=== PATIENT | female | born 1960 | race Caucasian/White ===

== ENCOUNTER 2020-03-20 06:00 | Outpatient (RCR) | payer MEDICARE, SELFPAY | END 2020-04-08 23:59 | disposition home or self-care (01) | LOC: SPT 06:00 | PROVIDERS: PCP Internal Medicine; Referring Provider Specialist; Visit Provider Specialist | DX: G20 Parkinson's disease (principal) | CPT/HCPCS: 97110; 97112; 97116; 97162 ==

== ENCOUNTER 2020-04-09 06:00 | Outpatient (RCR) | payer MEDICARE, MEDICAID, SELFPAY | END 2020-05-08 23:59 | disposition home or self-care (01) | LOC: SPT 06:00 | PROVIDERS: PCP Internal Medicine; Visit Provider Specialist | DX: G20 Parkinson's disease (principal) | CPT/HCPCS: 97110; 97112 ==

== ENCOUNTER → 2021-03-05 12:36 | Outpatient (BNVA) | payer MEDICARE, MEDICAID, SELFPAY | PROVIDERS: PCP Internal Medicine; Visit Provider Specialist | DX: G20 Parkinson's disease (principal) | CPT/HCPCS: 99214 ==

== ENCOUNTER → 2021-09-03 14:32 | Outpatient (BNVA) | payer MEDICARE, MEDICAID, SELFPAY | PROVIDERS: PCP Internal Medicine; Visit Provider Specialist | DX: G20 Parkinson's disease (principal); E66.01 Morbid (severe) obesity due to excess calories; Z68.42 Body mass index [BMI] 45.0-49.9, adult; Z91.81 History of falling | CPT/HCPCS: 99213 ==

== ENCOUNTER 2022-01-14 08:34 | Emergency (ER) | payer MEDICARE, MEDICAID, SELFPAY ==
--- NOTE | 2022-01-14 08:41 | XR_ITS ---
WS: [id number] RIGHT SHOULDER: 3 VIEW(S) TECHNIQUE: Internal and external rotation with Y view. HISTORY: pain/fall COMPARISON: 04/15/2012 Acute impacted fracture involving the humeral neck and head. There is significant impaction at the hu meral neck with fragmentation. Humeral head is rotated medially and probable posterior. Marked AC joint arthritis. Bones are osteopenic. XR/XR shoulder RT min 2V* [id number] IMPRESSION: Comminuted, impacted humeral neck and head fracture.
[2022-01-14 08:43] VITALS: BMI 43.9
[2022-01-14 09:16] VITALS: RESP 18
[2022-01-14] MEDS: morphine 4 mg/mL SDV 1 mL IVP (09:16)
[2022-01-14] MEDS: ondansetron 2 mg/ML SDV 2 mL 4 MG IVP (09:16)
--- NOTE | 2022-01-14 09:42 | CT_ITS ---
WS: [id number] CT RIGHT SHOULDER, NONCONTRAST. HISTORY: fx prox humerus Technique: All CT scans at [facility] use at least one of these dose optimization techniques: automated exposure control; mA and/or kV adjustment per patient size (includes targeted exams where dose is matched to clinical indication); or iterative reconstruction. DLP: 2565.8 mGy.cm COMPARISON: RIGHT shoulder radiograph 01/14/2022. Acute humeral neck and head fracture. There is impaction of the femoral neck upon the femoral head by at least 2 cm. Humeral head is rotated clockwise. There are multiple small osseous fragments along t he fracture line. Avulsion of the greater tuberosity. There is an additional tiny osteophyte or avuls ion fracture from the anterior glenoid. Moderate narrowing of the glenohumeral joint. Mild AC joint arthritis. No visualized rib fracture. The clavicle is normal. There is only a small am ount of soft tissue edema at the fracture site. Benign granuloma RIGHT upper lobe. CT/CT shoulder RT wo con* [id number] IMPRESSION: 1. Acute impacted comminuted fracture involving the humeral neck and head. Imp action by approximately 2 cm into the humeral head with clockwise rotation of t he humeral head. 2. Small osteophyte versus tiny avulsion fracture from the anterior glenoid.
--- NOTE | 2022-01-14 09:42 | W.ED.FALL ---
HPI - Fall General: Chief Complaint: Fall Stated Complaint: R SHOULDER PAIN/FALL Time Seen by Provider: 01/14/22 08:35 Source: patient Mode of arrival: ambulatory Limitations: no limitations History of Present Illness: 61-year-old female who stumbled and fell at home. She has a history of Parkinson's she has severe pain in her right arm. Patient did not strike her head there is no loss consciousness she denies any other injury. MD complaint: fall Onset (ago): minute(s) Fall from: standing Fall witnessed: no Place fall occurred: home Loss of consciousness: None Prolonged down time: no Symptoms prior to fall: none Context: tripped/slipped Location of injury: head Associated symptoms-after fall: Denies abdominal pain, chest pain, confusion, difficulty walking, headache(s), hematuria, lightheadedness, neck pain, numbness, short of breath, vertigo or weakness Review of Systems Const: Denies: fever(s), chills, body aches, change in appetite, fatigue or malaise ENMT: Denies: throat pain, ear or mastoid pain, nasal discharge or nasal congestion Card: Denies: chest pain or lightheadedness Resp: Denies: dyspnea, productive cough or non-productive cough GI: Denies: abdominal pain : Denies: hematuria Musc: Denies: neck pain Skin/Breast: Denies: rash or pruritus Neuro: Denies: headache(s), difficulty walking, vertigo or confusion PFS ED PFSH: Medical History Diabetes mellitus Diabetic neuropathy History of cataract Hyperlipidemia Hypertension Parkinson's disease Surgical History History of hand surgery Family History Other Cancer Diabetes Social History Smoking and tobacco status: never smoked Alcohol intake: never History of recent travel: No Physical Exam Const: GENERAL APPEARANCE: cooperative and comfortable NUTRITIONAL APPEARANCE: obese ORIENTATION/CONSCIOUSNESS: Yes awake HENMT: COMMON NORMALS: normocephalic, atraumatic and hearing grossly normal bilaterally HEAD & SCALP: normocephalic and atraumatic Resp: COMMON NORMALS: normal respiratory effort, No retractions, No use of accessory muscles and clear to auscultation bilaterally AUSCULTATION: clear to auscultation bilaterally Cardio: COMMON NORMALS: regular rate, regular rhythm and No murmurs present (Cardio) RATE: regular rate RHYTHM: regular rhythm GI: COMMON NORMALS: Soft to palpation and No hepatosplenomegaly present AUSCULTATION: Yes normoactive bowel sounds PALPATION: Yes Soft to palpation, No Tenderness to palpation present (GI), No Guarding due to palpation present (GI) and Yes No hepatosplenomegaly present Extremity: OTHER: Obvious deformity to proximal right humerus. Patient holding in the splinted position against her chest. Neuro vascularly intact. Skin: COMMON NORMALS: no rashes or lesions noted GENERAL SKIN EXAM: no rashes or lesions noted Course Vital Signs: Vital signs: Vital Signs Respiratory Rate 18 01/14/22 09:16 MDM - Fall Medical Decision Making Discussed with Dr. Guzman. Will discharge patient home in a arm sling. CT done for further evaluation he will follow up with that in the office. Patient given pain medication discharged home advised to wear sling at all times until she sees Ortho for further instructions. Medical Records I reviewed the patient's medical records. Lab Data I reviewed the patient's lab results. Radiology Impressions Shoulder X-Ray 01/14/22 08:41 IMPRESSION: Comminuted, impacted humeral neck and head fracture. Shoulder CT 01/14/22 09:42 IMPRESSION: 1. Acute impacted comminuted fracture involving the humeral neck and head. Impaction by approximately 2 cm into the humeral head with clockwise rotation of the humeral head. 2. Small osteophyte versus tiny avulsion fracture from the anterior glenoid. Discharge Plan Discharge Patient Disposition: Home Clinical Impression: Fracture of proximal end of humerus Condition: Stable Prescriptions: New hydrocodone-acetaminophen 5-325 mg tablet 1 tab PO Q6H PRN (Reason: pain) Qty: 20 0RF No Action donepezil 5 mg tablet 5 mg PO DAILY 0RF metformin 1,000 mg tablet 1,000 mg PO BID 0RF gabapentin 800 mg tablet 800 mg PO DAILY 0RF Januvia 50 mg tablet 50 mg PO DAILY 0RF citalopram 20 mg tablet 20 mg PO DAILY 0RF lisinopril 10 mg tablet 10 mg PO DAILY 0RF glipizide 10 mg tablet 10 mg PO DAILY 0RF pantoprazole 40 mg tablet,delayed release (DR/EC) 40 mg PO DAILY PRN0RF cholecalciferol (vitamin D3) 4,000 unit capsule 1,000 unit PO DAILY 0RF aspirin [Adult Low Dose Aspirin] 81 mg tablet,delayed release (DR/EC) 81 mg PO DAILY 0RF gabapentin 600 mg tablet 600 mg PO BID Qty: 60 10RF carbidopa-levodopa [Sinemet] 25-100 mg tablet 1 tab PO .COMPLEX Qty: 150 11RF Rx Instructions: Take 2 tablets at 10AM, 2 tablets at 2PM, and 1 tablet at 6PM Discharge Orders: Discharge ED (Routine); Ordered 01/14/22 Ordered By: Kodak Burgess Referrals: Evie Aguilar MD [Primary Care Provider] - Discharge Diet: Usual diet Discharge Activity: Limit activity as instructed Patient Instructions: Opioid Safety Activity Restrictions/Additional Instructions: No use of the right arm. off track betting manager will make arrangements for follow-up with orthopedics use a sling until seen by them. Coding Level of Care Code ED Truck Sales Representative for Chg Fwd Exam Detailed
--- NOTE | 2022-01-20 10:23 | DCPLANNER ---
Addendum entered by Rakel Crisostomo 02/06/22 08:43: Patient had a follow up appointment scheduled for 01.21.[address] Guzman at ortho - patient did attend appointment. Addendum entered by Rakel Crisostomo 01/21/22 05:45: Patient has a follow up appointment scheduled for Friday, January 21, 2022 at 1:[address] Guzman at ortho. Clinic will call patient with appointment information. Original Note: energy efficiency finance manager had message to schedule a follow up appointment for patient with ortho. energy efficiency finance manager called the ortho clinic, spoke with Shala, gave clinic patients information. energy efficiency finance manager was told that patients information would be printed and reviewed. Clinic will call patient with appointment information.
== END 2022-01-14 10:28 | disposition home or self-care (01) ==
PROVIDERS: Emergency Provider Family Medicine; PCP Internal Medicine
DX: S42.291A Other displaced fracture of upper end of right humerus, initial encounter for closed fracture (principal); W01.0XXA Fall on same level from slipping, tripping and stumbling without subsequent striking against object, initial encounter; Z79.84 Long term (current) use of oral hypoglycemic drugs; Z79.82 Long term (current) use of aspirin; E11.40 Type 2 diabetes mellitus with diabetic neuropathy, unspecified; E78.5 Hyperlipidemia, unspecified; I10 Essential (primary) hypertension; G20 Parkinson's disease
CPT/HCPCS: 73030; 73200; 96374; 96375; 99283; J2270; J2405

== ENCOUNTER → 2022-01-21 00:01 | Outpatient (BNVA) | payer MEDICARE, MEDICAID, SELFPAY | PROVIDERS: PCP Internal Medicine; Visit Provider Orthopaedic Surgery | DX: S42.209A Unspecified fracture of upper end of unspecified humerus, initial encounter for closed fracture (principal); Z01.812 Encounter for preprocedural laboratory examination; Z20.822 Contact with and (suspected) exposure to COVID-19; X58.XXXA Exposure to other specified factors, initial encounter | CPT/HCPCS: 87635 ==

== ENCOUNTER 2022-01-27 17:02 | Observation (INO) | payer MEDICARE, MEDICAID, SELFPAY ==
--- NOTE | 2022-01-22 13:10 | ECG_ITS ---
[facility] Test Date: 2022-01-22 Pat Name: Miguelina Goncalves Department: Room: Gender: Female Director Social Service: : 1960 Requested By: Radha De Anda Order Number: [id number] Dot MD: Ilir Norris M.D. Measurements Intervals [place] Rate: 80 P: 38 MO: 149 QRS: -7 QRSD: 86 T: 47 QT: 387 QTc: 447 Interpretive Statements SINUS RHYTHM LOW QRS VOLTAGE IN PRECORDIAL LEADS [QRS DEFLECTION < 1.0 mV IN CHEST LEADS] POSSIBLE ANTERIOR MYOCARDIAL INFARCTION , OF INDETERMINATE AGE [30 ms Q WAVE IN V3/V4, OR R < 0.2 mV IN V4] Compared to ECG 10/15/2018 11:25:47 No significant changes Electronically Signed On 01-22-2022 18:51:50 CDT by Ilir Norris M.D. [id number]
[2022-01-22 13:49] VITALS: BMI 43.9
[2022-01-22 14:30] LABS: Basophils # 0.1 10^3/uL (0.0-0.1); Basophils % 0.5 %; Eosinophils # 0.1 10^3/uL (0.0-0.8); Eosinophils % 1.3 %; Hematocrit 34.6 % (37.0-47.0); Lymphocytes # 0.9 10^3/uL (0.8-4.8); Lymphocytes % 8.3 %; Mean Corpuscular HGB Conc 31.8 g/dL (30.0-36.0); Mean Corpuscular Hemoglobin 30.1 pg (28.0-34.0); Mean Corpuscular Volume 94.5 fl (81-99); Mean Platelet Volume 9.1 fL (7.4-10.4); Monocytes # 0.6 10^3/uL (0.2-0.9); Monocytes % 5.6 %; Neutrophils # 9.14 10^3/uL (1.8-7.7); Neutrophils % 83.8 %; Nucleated Red Blood Cells % 0 %; Platelet Count 250 10^3/cmm (130-400); Red Blood Count 3.66 10^6/uL (4.1-5.3); White Blood Count 10.9 10^3/uL (4.0-10.0)
--- NOTE | 2022-01-22 14:35 | ANES.PREANE2 ---
Pre-Anesthetic Assessment Height/Weight: Height 1.57 m Weight 108.862 kg Preop Diagnosis: Fracture right proximal humerus Operation Date: 01/27/22 11:20 Proposed Procedures p Total Reverse Shoulder Arthroplasty(Right) - Yonas Guzman MD Familial anesthetic complications: None Social No alcohol and No tobacco Airway Mallampati: Class III Dentition: false Pulmonary None reported CV/HEM Hypertension None reported Hepatic None reported GI Gastroesophageal Reflux Disease Metabolic Diabetes Mellitus, Hyperlipidemia and Morbid Obesity [facility] [place] None reported Neuropsych parkinson's Anesthetic Plan ASA status: 3 Anesthesia: General and Regional (specify below) Risk of > 500 ml blood loss (7ml/kg in children): No Medications/Allergies Home Medications Medication Instructions Recorded Confirmed Last Taken Type aspirin 81 mg tablet,delayed 81 mg PO DAILY 01/31/20 01/22/22 Unknown History release (Adult Low Dose Aspirin) citalopram 20 mg tablet 20 mg PO DAILY 01/31/20 01/22/22 Unknown History donepezil 5 mg tablet 5 mg PO DAILY 01/31/20 01/22/22 Unknown History gabapentin 800 mg tablet 800 mg PO DAILY 01/31/20 01/22/22 Unknown History glipizide 10 mg tablet 10 mg PO DAILY 01/31/20 01/22/22 Unknown History lisinopril 10 mg tablet 10 mg PO DAILY 01/31/20 01/22/22 Unknown History pantoprazole 40 mg tablet,delayed 40 mg PO DAILY PRN 01/31/20 01/22/22 Unknown History release sitagliptin 50 mg tablet (Januvia) 50 mg PO DAILY 01/31/20 01/22/22 Unknown History gabapentin 600 mg tablet 600 mg PO BID #60 tab 11/06/21 01/22/22 Unknown Rx carbidopa 25 mg-levodopa 100 mg 1 tab PO .COMPLEX #150 tab 11/13/21 01/22/22 Unknown Rx tablet (Sinemet) dulaglutide 1.5 mg/0.5 mL 1.5 mg SUBCUT DIRECTED 01/21/22 01/22/22 Unknown History subcutaneous pen injector (Trulicity) hydrocodone 5 mg-acetaminophen 325 1 tab PO Q6H PRN 7 Days #30 tab 01/21/22 01/22/22 Unknown Rx mg tablet cholecalciferol (vitamin D3) 125 225 mcg PO DAILY 01/22/22 01/22/22 Unknown History mcg (5,000 unit) tablet (Vitamin D3) metformin 500 mg tablet,extended 500 mg PO BID 01/22/22 01/22/22 Unknown History release 24 hr Allergies Allergy/AdvReac Type Severity Reaction Status Date / Time ampicillin Allergy Unknown Rash and Verified 01/22/22 13:48 Itching [facility] Anesthesia Medical History Diabetes mellitus Diabetic neuropathy History of cataract Hyperlipidemia Hypertension Parkinson's disease Surgical History History of hand surgery Family History Other Cancer Diabetes Social History Smoking and tobacco status: never smoked Alcohol intake: never History of recent travel: No Data Anesthesia : 01/22/22 14:13 01/22/22 14:13 Short CBC 01/22/22 Range/Units 14:13 WBC 10.9 H (4.0-10.0) 10^3/uL Hgb 11.0 L (11.5-15.3) g/dL Hct 34.6 L (37.0-47.0) % MCV 94.5 (81-99) fl Plt Count 250 (130-400) 10^3/cmm Neut % (Auto) 83.8 % Neut # (Auto) 9.14 H (1.8-7.7) 10^3/uL Cardiac Studies: No Data to Display
[2022-01-22 14:52] LABS: Anion Gap 14.9 (5-19); Blood Urea Nitrogen 28 mg/dL (8-23); Calcium 9.1 mg/dL (8.5-10.5); Carbon Dioxide 29 mmol/L (22-29); Chloride 99 mmol/L (98-107); Glomerular Filtration Rate 63.4 mL/min (90-130); Glucose 196 mg/dL (65-115); Osmolality Calculated 297 mOsm/kg (285-295); Potassium 4.9 mmol/L (3.5-5.1); Sodium 138 mmol/L (136-145)
[2022-01-27] VITALS (16 sets, daily range): BP systolic 121–153; BP diastolic 57–77; PULSE 68–94; RESP 14–22; TEMP 36.2–36.8; O2SAT 90–99; BMI 47.7
[2022-01-27] MEDS: acetaminophen 500 mg Tablet 1000 MG PO ×2 (09:52→21:51)
[2022-01-27] MEDS: oxyCODONE 20 mg ER (12 HR) Tablet PO (09:53)
[2022-01-27] MEDS: CELEcoxib 200 mg Capsule 400 MG PO (09:53)
[2022-01-27 10:23] LABS: Glucose Point of Care 130 mg/dL (70-110)
[2022-01-27] MEDS: HYDROmorphone 1 mg/mL INJ 1 mL 0.5 MG IVP (10:25)
[2022-01-27] MEDS: sodium chloride 0.9% 1,000 ML 30 ML IV (10:30)
--- NOTE | 2022-01-27 10:46 | P.ANESUD_ITS ---
Pre-Anesthetic Update Pre-Anesthetic Assessment: Date of Surgery/Procedure: 01/27/22 Preop Dunia gnosis: Fracture right proximal humerus Proposed Procedure: Operation Date: 01/27/22 11:20 Proposed Procedures p Total Reverse Shoulder Arthroplasty(Right) - Yonas Guzman MD Any changes to Pre-Anesthetic Assessment?: No Last Intake: Intake Last Liquid Date 01/27/22 Last Liquid Time 22:00 Last Solid Date 01/26/22 Last Solid Time 17:00 Vitals: Temperature 97.1 F L 01/27/22 09:37 Temperature Source Temporal Artery S can 01/27/22 09:37 Pulse Rate 68 01/27/22 09:37 Pulse Rhythm 01/27/22 09:37 Pulse Strength 3+ Normal 01/27/22 09:37 Respiratory Rate 18 01/27/22 10:25 Respiratory Effort 01/27/22 10:25 Respiratory Depth Normal 01/27/22 10:25 Respiratory Patter n 01/27/22 10:25 Blood Pressure 153/69 01/27/22 09:37 Blood Pressure Luciana n 97 01/27/22 09:37 Pulse Oximetry 99 01/27/22 10:25 Oxygen Delivery Me thod 01/27/22 09:37 Exam: Pre-Anes Outpt Exam: alert, oriented x 3, clear to auscultation bilaterally and regular rate & rhythm Cardiac Studies: No Data to Display Anesthesia Procedures Nerve Block: Nerve Block 1: Main Anesthesia: general anesthesia Time Out Performed: Yes Consent: requested by attending/covering physician Nerve block location: interscalene (right) Anesthesia monitors applied: pulse oximetry, EKG, BP cuff and oxygen Nerve block position: semi sitting Anesthetic Used: ropivicaine 0.5% Amount of anesthesia used (mL): 30 Ultrasound used to: recognize landmarks and visualize and ID brachial plexus Nerve Stimulator Used?: No Interscalene/Femoral BLK: 2 stimuplex 22 g needle used for position and inplane approach Injection: neg aspiration of heme Patient Tolerated Procedure: well Complications: none
--- NOTE | 2022-01-27 13:28 | W.PM.OPSFHP ---
Same Day Surgery H&P Indication for Procedure/HPI DATE OF PROCEDURE: January 27, 2022 CHIEF COMPLAINT/INDICATIONFOR SURGICAL PROCEDURE: Right proximal humerus fracture here for reverse total shoulder arthroplasty PREOP DIAGNOSIS: Fracture right proximal humerus PLANNED PROCEDURE: Operation Date: 01/27/22 11:20 Proposed Procedures p Total Reverse Shoulder Arthroplasty(Right) - Yonas Guzman MD 61-year-old who fell at home on 01/14/2022 with a severe comminuted fracture of the right proximal humerus. Due to poor bone quality the degree of comminution she is not thought to be a candidate for surgical repair and she is scheduled for a right reverse total shoulder arthroplasty Medications/Allergies* Home Medications Medication Instructions Recorded Confirmed Type aspirin 81 mg tablet,delayed 81 mg PO DAILY 01/31/20 01/27/22 History release (Adult Low Dose Aspirin) citalopram 20 mg tablet 20 mg PO DAILY 01/31/20 01/27/22 History donepezil 5 mg tablet 5 mg PO DAILY 01/31/20 01/27/22 History gabapentin 800 mg tablet 800 mg PO DAILY 01/31/20 01/27/22 History glipizide 10 mg tablet 10 mg PO DAILY 01/31/20 01/27/22 History lisinopril 10 mg tablet 10 mg PO DAILY 01/31/20 01/27/22 History pantoprazole 40 mg tablet,delayed 40 mg PO DAILY PRN 01/31/20 01/27/22 History release sitagliptin 50 mg tablet (Januvia) 50 mg PO DAILY 01/31/20 01/27/22 History dulaglutide 1.5 mg/0.5 mL 1.5 mg SUBCUT DIRECTED 01/21/22 01/27/22 History subcutaneous pen injector (Trulicity) cholecalciferol (vitamin D3) 125 225 mcg PO DAILY 01/22/22 01/27/22 History mcg (5,000 unit) tablet (Vitamin D3) metformin 500 mg tablet,extended 500 mg PO BID 01/22/22 01/27/22 History release 24 hr Allergies/Adverse Reactions Allergy/AdvReac Type Severity Reaction Status Date / Time ampicillin Allergy Unknown Rash and Verified 01/27/22 09:34 Itching Current Medications: Generic Name Dose Route Start Last Admin Trade Name Freq PRN Reason Stop Dose Admin Sodium Chloride 1,000 mls @ 30 mls/hr 01/27/22 09:30 01/27/22 10:30 Sodium Chloride 0.9% IV 01/28/22 09:29 30 mls/hr .Q24H MARIO Administration Pertinent History/Comorbid Conditions* Medical History (Updated 01/22/22 @ 00:00 by ) Diabetes mellitus Diabetic neuropathy History of cataract Hyperlipidemia Hypertension Parkinson's disease Surgical History (Updated 01/15/22 @ 12:23 by Kodak Burgess DO) History of hand surgery Family History (Updated 01/31/20 @ 09:00 by Steph Stack LPN) Diabetes Cancer Social History Smoking and tobacco status: never smoked Alcohol intake: never History of recent travel: No Pertinent Exam Findings alert, clear to auscultation bilaterally, regular rate & rhythm and operative site marked Recommendations Surgery/Procedure today Coding Level of Care Code Acute Citrix Lead for Taurus Mccarthy
[2022-01-27] MEDS: tranexamic acid 1,000 mg/10mL SDV 2000 MG IRRIGATION (14:56)
[2022-01-27] MEDS: tranexamic acid 1,000 mg/10mL SDV 1000 MG IV (14:56)
--- NOTE | 2022-01-27 16:32 | PC.NURSE ---
CALLED AND UPDATED FAMILY ABOUT SURGERY PROGRESS AND THAT SHE WOULD BE HEADED TO RECOVERY SOON.
--- NOTE | 2022-01-27 17:05 | XRR_ITS ---
PROCEDURE INFORMATION: Exam: XR Right Shoulder Exam date and time: 01/27/2022 5:15 PM Age: 61 years old Clinical indication: Condition or disease; Other: Post op reversse total shoulder; Prior surgery; Surgery date: Post-operative (0-2 days); Surgery type: Today; Patient HX: Post op RT reverse total shoulder; Additional info: R reverse total shoulder TECHNIQUE: Imaging protocol: XR Right shoulder. Views: 2 or more views. COMPARISON: CT shoulder RT wo con* [id number] 01/14/2022 10:02 AM FINDINGS: Bones/joints: Right shoulder arthroplasty changes. The hardware appears intact and normal alignment. Small residual bone fragments anterior and inferior to the humeral hardware. Lungs: Right lung calcified granuloma. Soft tissues: Gas in the soft tissues, consistent with surgery. XR/XR shoulder RT min 2V* [id number] IMPRESSION: Right shoulder arthroplasty changes.
--- NOTE | 2022-01-27 17:14 | P.OP_ITS ---
Operative Report Date of procedure: January 27, 2022 Pre-op diagnosis: Preop Diagnosis Comminuted fracture right proximal humerus Post-op diagnosis: same Procedure done: Right reverse total shoulder Implants: 1) Tornier Aequalis Flex Revive 11mm stem 2) Aequalis Flex Revive 11 mm proximal body 3) Flex Shoulder System reversed tray +0mm 4) Flex Shoulder System 36 mm +6 mm reversed insert 5) Aequalis PerFORM Reversed 25 standard baseplate 6) Aequalis perForm Reversed 36 mm standard glenosphere 7) Glenoid screws: central 9.5 x 40 mm, superior 38 mm inferior 26 mm, anterior 40 mm, posterior 18 mm 8) Aeqalis Flex Revive Spacer 11 x 20 Pathology: none sent Surgeon: Yonas Guzman Anesthesia: General and Nerve Block (Interscalene block) Estimated blood loss (mL): 200 Findings: The patient is a comminuted fracture of the proximal humerus with varus displacement of the head and marked proximal migration of the humeral shaft. There is a free within greater tuberosity fragment. The lesser tuberosity was still adhered to the head Condition: stable Disposition: PACU Procedure: An intrascalene blocks provided the holding area. The patient was taken to the operating room and given a general anesthesia. They were given 2 g of Ancef. A Benitez stand was covered and use to support support the arm A timeout was performed. A 10 cm long incision was made over the deltopectoral groove and dissection carried out with a scalpel blade to the deltopectoral interval. The cephalic vein was identified and retracted laterally. Digital dissection was accomplished to free lesions beneath the deltoid and beneath the coracobrachialis musculature. An Hood medium tissue protector was used to retract the pectoralis major and the deltoid. The biceps was released and the proximal bicipital groove. The attachments of the subscapularis to the lesser tuberosity and supraspinatus and infraspinatus to the greater tuberosity were identified those tuberosities mobilized. The greater tuberosity was secured with 4 #2 braided polyester sutures passed around the greater tuberosity at the tenderness insertion and 2 #2 sutures about around the lesser tuberosity at the tendinous insertion. The free humeral head was then removed. Utilizing electrocautery the glenoid was exposed circumferentially. The centering guide was used to place the central guidepin and the glenoid ream down to sclerotic bone. A 25 mm Tornier Aequalis PerFORM REversed glenoid baseplate was then secured in place with a central 9.5 x 40 mm screw, a superior locking 38 mm screw, an inferior locking 26 mm screw, an anterior 14 mm screw and a posterior 18 mm screw. A standard 36 mm Aequalis perFORM Reverse dGlenosphere was then placed. Attention was then focused on the humerus. Sequential reaming of the humeral canal was accomplished up to 11 mm. A trial reduction was accomplished with the 11 Aqualis Flex REvive body however rotational stability could not be obtained. Second trial reduction with the spacer provided greatly improved rotational stability. A trial reduction with the 36+6 mm reversed insert provided adequate stability. He small drill hole was made in the anterior cortex of the humerus and a braided #2 suture loop passed into the canal. the final size 11 Aequalis Awscend Flex Revive humeral stem, spacer,and proximal body was prepared for tuberosity repair. The loop suture to the anterior cortex was passed around the stem and the for braided sutures passed through the greater tuberosity were passed through the eyelet on the medial stem. The stem and body were then press-fit into place. The Flex Shoulder system reverse tray 36 mm +6 mm insert was placed and the shoulder reduced with a stable reduction. Initially 2 of the greater tuberosity sutures were secured across the greater tuberosity to the posterior prosthesis. The other 2 sutures were passed with a free needle through the subscapularis and secured drop further reinforcing the greater tuberosity drawing the lesser tuberosity to the humerus. Finally the suture exiting the anterior hole and the humerus was passed in a [id number] fashion through the tendinous insertions on the greater and lesser tuberosity. The wound was irrigated with a solution of 100 cc of saline with 1 g of tranexam ic acid and 80 mg of gentamicin. The deltopectoral interval was closed with 0 Vicryl. The subcutaneous tissues were closed with 2-0 Stratafix. The skin was closed with a running 4-0 Stratafix. Sterile dressings were applied. The patient was placed in a sling extubated and taken to recovery room in stable condition.
--- NOTE | 2022-01-27 17:15 | SUR.PHASEI ---
1704 PT TO PACU 5 PT WITH ORAL AIRWAY IN PLACE, GOOD RESPIRATORY EFFORT NOTED ,ID BRACELET TO LT WRIST PT ID WITH 2 IDENTIFIERS , IV TO LT WRIST, DRESSING TO RT SHOULDER ISLAND DRESSING TEGADERM SLING IN PLACE, DISTAL HAND PINK WARM WITH STRONG RADIAL PULSE, PT ORAL AIRWAY OUT, PT MOVES FINGER TO COMMAND, MONITOR SR NO ECTOPY. 1717 DR ELENA AT BEDSIDE, AP XRAYS DONE WITH DR'S ASSISTANCE, PT HOB UP TO 30 DEGREES, VSS
--- NOTE | 2022-01-27 17:34 | SUR.PHASEI ---
PT ON RA TRIAL, PT ENCOURAGED TO COUGH AND DEEP BREATH, LUNGS CLEAR, DIMINISHED BASES. PT SATS DOWNT TO 80% , SAT PROBE TO BILAT EARS, PT PLACED ON 3LNC SAT UP TO 90-91% PT VERBALLY DENIES PAIN , NAUSEA, OR SHORTNESS OF BREATH.
--- NOTE | 2022-01-27 17:40 | ANE.PACU2 ---
Inpatient post-anesthesia follow up: Airway intact: Yes Vital signs: Temperature 97.3 F Pulse Rate 87 Respiratory Rate 16 Blood Pressure 145/71 Pulse Oximetry 91 Oxygen Delivery Me thod Nasal Cannula Oxygen Flow Rate 3 Fraction of Inspir ed Oxygen Hydration adequate: Yes Nausea and vomiting: No Pain level: 1 Mental status: Baseline
--- NOTE | 2022-01-27 19:00 | PC.NURSE ---
Ice packs changed by Martín Hernandez RN.
[2022-01-27] MEDS: CELEcoxib 200 mg Capsule PO (21:50)
[2022-01-27] MEDS: carbidopa-levodopa 25-100mg Tablet PO (21:50)
[2022-01-27] MEDS: gabapentin 300 mg Capsule 600 MG PO (21:51)
[2022-01-27] MEDS: insulin lispro 100 unit/1 mL SUBCUT (21:52)
[2022-01-27] MEDS: sodium chloride 0.9% 1,000 ML 100 ML IV (21:53)
[2022-01-28] VITALS (8 sets, daily range): BP systolic 117–146; BP diastolic 66–75; PULSE 85–94; RESP 14–18; TEMP 36.8–37.2; O2SAT 88–94
--- NOTE | 2022-01-28 | PC.NURSE ---
Ice packs changed out.
--- NOTE | 2022-01-28 05:07 | PC.NURSE ---
Pt has been unable to void this shift. She has been up to the [facility] without success. Bladder Scan by myself & Jair Torres RN only reveals [address] Porras has been notified. Orders to give NS 500 ml IV bolus x 1.
[2022-01-28] MEDS: sodium chloride 0.9% 500 ML IV (05:24)
[2022-01-28 05:59] LABS: Hemoglobin 10.1 g/dL (11.5-15.3)
[2022-01-28] MEDS: acetaminophen 500 mg Tablet 1000 MG PO ×3 (06:05→20:53)
--- NOTE | 2022-01-28 08:16 | P.PN_ITS ---
Subjective Subjective: Pain okay with shoulder Vitals/I&O/Wt Last Vital Signs Temp 98.6 F 01/28/22 07:40 Pulse 88 01/28/22 07:40 Resp 18 01/28/22 07:40 BP 146/75 01/28/22 07:40 Pulse Ox 93 01/28/22 07:40 01/27/22 01/28/22 01/28/22 22:59 06:59 14:59 Intake Total 1400 / 1460 360 / 1820 500 / 500 Output Total 200 / 200 Balance 1200 / 1260 360 / 1620 500 / 500 Weight last 48 hrs Weight 261 lb Physical Exam Narrative: Right shoulder dressing clean and dry. Fires deltoid and biceps. Data : 01/28/22 05:22 01/22/22 14:13 A&P Assessment and plan (1) Fracture of humerus, proximal, right, closed: Status: Resolved (2) Status post replacement of right shoulder joint: Occupational TherapyOccupation theray to begin AROM R elbow, wrist, hand; pendulum exercises right shoulder. Status: Acute Attestations Medical Necessity Statement*: Awaiting SNF Coding Level of Care Code Acute Manager Transportation for Chg Fwd Diagnoses Status post replacement of right shoulder joint Z96.611 Fracture of humerus, proximal, right, closed S42.201A
[2022-01-28] MEDS: gabapentin 300 mg Capsule 600 MG PO ×2 (09:04→20:54)
[2022-01-28] MEDS: cholecalciferol (vitamin D3) 5,000 unit Tablet 5000 UNIT PO (09:04)
[2022-01-28] MEDS: citalopram 20 mg Tablet PO (09:04)
[2022-01-28] MEDS: CELEcoxib 200 mg Capsule PO ×2 (09:04→20:53)
[2022-01-28] MEDS: carbidopa-levodopa 25-100mg Tablet PO ×3 (09:04→17:27)
[2022-01-28] MEDS: lisinopril 10 mg Tablet PO (09:04)
[2022-01-28] MEDS: donepezil 5 MG Tablet PO (09:04)
[2022-01-28] MEDS: aspirin 81 mg EC Tablet PO (09:04)
[2022-01-28] MEDS: sodium chloride 0.9% 1,000 ML 100 ML IV ×2 (09:05→21:21)
[2022-01-28] MEDS: oxyCODONE 5 mg IR Tab/Cap 10 MG PO ×3 (09:05→17:27)
[2022-01-28 11:15] LABS: Glucose Point of Care 209 mg/dL (70-110)
[2022-01-28 11:15] LABS: Glucose Point of Care 253 mg/dL (70-110)
[2022-01-28 11:42] LABS: Glucose Point of Care 213 mg/dL (70-110)
[2022-01-28] MEDS: insulin lispro 100 unit/1 mL SUBCUT ×3 (12:21→21:21)
[2022-01-28 17:10] LABS: Glucose Point of Care 289 mg/dL (70-110)
[2022-01-28 21:12] LABS: Glucose Point of Care 190 mg/dL (70-110)
[2022-01-29 00:37] VITALS: BP 115/67; PULSE 82; RESP 15; TEMP 36.9; O2SAT 93
[2022-01-29 04:00] VITALS: BP 110/66; PULSE 78; RESP 16; TEMP 36.9; O2SAT 95
[2022-01-29] MEDS: acetaminophen 500 mg Tablet 1000 MG PO ×3 (06:28→21:56)
[2022-01-29 08:00] VITALS: BP 112/68; PULSE 74; RESP 18; TEMP 36.6; O2SAT 97
--- NOTE | 2022-01-29 08:08 | P.PN_ITS ---
Subjective Subjective: Adequate pain control. Able to transfer to chair with therapy but unable to ambulate due to lower extremity weakness. Tolerating occupational therapy for arm Vitals/I&O/Wt Last Vital Signs Temp 98.4 F 01/29/22 04:00 Pulse 78 01/29/22 04:00 Resp 16 01/29/22 04:00 BP 110/66 01/29/22 04:00 Pulse Ox 95 01/29/22 04:00 01/28/22 01/29/22 01/29/22 22:59 06:59 14:59 Intake Total 1300 / 3820 240 / 4060 Output Total 0 / 0 Balance 1300 / 3820 240 / 4060 Weight last 48 hrs Weight 261 lb Physical Exam Narrative: Right shoulder dressing clean and dry Data : 01/28/22 05:22 01/22/22 14:13 A&P Assessment and plan (1) Status post replacement of right shoulder joint: Awaiting senior care placement. No acute orthopedic needs. Does not appear patient will be a candidate for gait training until can use shoulder for w eightbearing Status: Acute Attestations Medical Necessity Statement*: Awaiting SNF placement Coding Level of Care Code Acute Delivery Driver/Supervisor for Chg Fwd Diagnoses Status post replacement of right shoulder joint Z96.611
[2022-01-29] MEDS: insulin lispro 100 unit/1 mL SUBCUT ×4 (09:31→21:53)
[2022-01-29] MEDS: carbidopa-levodopa 25-100mg Tablet PO ×3 (09:32→17:01)
[2022-01-29] MEDS: gabapentin 400 mg Capsule 800 MG PO (09:32)
[2022-01-29] MEDS: donepezil 5 MG Tablet PO (09:32)
[2022-01-29] MEDS: citalopram 20 mg Tablet PO (09:32)
[2022-01-29] MEDS: CELEcoxib 200 mg Capsule PO ×2 (09:33→20:36)
[2022-01-29] MEDS: cholecalciferol (vitamin D3) 5,000 unit Tablet 5000 UNIT PO (09:33)
[2022-01-29] MEDS: aspirin 81 mg EC Tablet PO (09:33)
[2022-01-29] MEDS: gabapentin 300 mg Capsule 600 MG PO ×2 (09:33→20:36)
[2022-01-29] MEDS: lisinopril 10 mg Tablet PO (09:33)
[2022-01-29] MEDS: sodium chloride 0.9% 1,000 ML 100 ML IV ×2 (09:34→20:35)
[2022-01-29 11:54] VITALS: BP 123/63; PULSE 76; RESP 22; TEMP 36.9; O2SAT 96
[2022-01-29 12:12] LABS: Glucose Point of Care 277 mg/dL (70-110)
[2022-01-29 17:45] VITALS: BP 137/70; PULSE 77; RESP 14; TEMP 36.7; O2SAT 96
[2022-01-29 19:55] VITALS: BP 124/59; PULSE 78; RESP 18; TEMP 37.4; O2SAT 96
[2022-01-29 21:19] LABS: Glucose Point of Care 218 mg/dL (70-110)
[2022-01-29 21:19] LABS: Glucose Point of Care 199 mg/dL (70-110)
[2022-01-29 21:19] LABS: Glucose Point of Care 174 mg/dL (70-110)
[2022-01-30] VITALS (8 sets, daily range): BP systolic 133–149; BP diastolic 54–73; PULSE 61–128; RESP 17–19; TEMP 36.2–37.1; O2SAT 92–98
[2022-01-30] MEDS: acetaminophen 500 mg Tablet 1000 MG PO ×2 (06:03→14:46)
[2022-01-30 06:46] LABS: Glucose Point of Care 138 mg/dL (70-110)
[2022-01-30] MEDS: aspirin 81 mg EC Tablet PO (08:08)
[2022-01-30] MEDS: lisinopril 10 mg Tablet PO (08:09)
[2022-01-30] MEDS: CELEcoxib 200 mg Capsule PO ×2 (08:09→20:25)
[2022-01-30] MEDS: cholecalciferol (vitamin D3) 5,000 unit Tablet 5000 UNIT PO (08:09)
[2022-01-30] MEDS: donepezil 5 MG Tablet PO (08:09)
[2022-01-30] MEDS: citalopram 20 mg Tablet PO (08:09)
[2022-01-30] MEDS: gabapentin 300 mg Capsule 600 MG PO ×2 (08:09→20:25)
--- NOTE | 2022-01-30 10:15 | P.PN_ITS ---
Subjective Subjective: No changes. Pain OK. Awaiting placement Vitals/I&O/Wt Last Vital Signs Temp 98.7 F 01/30/22 07:39 Pulse 64 01/30/22 07:39 Resp 17 01/30/22 07:39 BP 138/64 01/30/22 07:39 Pulse Ox 98 01/30/22 07:39 01/29/22 01/30/22 01/30/22 22:59 06:59 14:59 Intake Total 1200 / 2200 225 / 2425 720 / 720 Output Total 525 / 525 Balance 1200 / 2200 -300 / 1900 720 / 720 Physical Exam Narrative: Dressiong clean and dry/ Const: COMMON NORMALS: no acute distress Urinary Catheter Management: Townsend: Cath Placed During This Visit: yes Reason for Continuing Indwelling Catheter: Acute Urinary Retention or Obstruction Urinary Catheter Date of Insertion: 01/29/22 Urinary Catheter Time of Insertion: 10:35 Data : 01/28/22 05:22 01/22/22 14:13 A&P Assessment and plan (1) Status post replacement of right shoulder joint: No issues awaiting placement. Status: Acute Attestations Medical Necessity Statement*: Awaiting placement Coding Level of Care Code Acute Rehabilitation Physician for Taurus Mccarthy Diagnoses Status post replacement of right shoulder joint Z96.611
[2022-01-30] MEDS: oxyCODONE 5 mg IR Tab/Cap 10 MG PO ×2 (10:56→20:26)
[2022-01-30] MEDS: carbidopa-levodopa 25-100mg Tablet PO ×3 (10:56→17:35)
[2022-01-30 11:28] LABS: Glucose Point of Care 303 mg/dL (70-110)
[2022-01-30] MEDS: insulin lispro 100 unit/1 mL SUBCUT ×3 (13:05→22:14)
--- NOTE | 2022-01-30 15:12 | PC.OT ---
OT TREATMENT ATTEMPTED. PATIENT STATES THAT SHE DOES NOT WISH TO PERFORM OT AT THIS TIME. PATIENT SCHEDULED FOR D/C TO SNF TODAY. PATIENT IS ENCOURAGED TO PERFORM UE EXERCISES INDEPENDENTLY SINCE SHE DID NOT WANT TO DO SO WITH OT AT THIS TIME.
[2022-01-30 17:12] LABS: Glucose Point of Care 232 mg/dL (70-110)
[2022-01-30 21:44] LABS: Glucose Point of Care 252 mg/dL (70-110)
[2022-01-31] VITALS (8 sets, daily range): BP systolic 112–166; BP diastolic 46–78; PULSE 64–79; RESP 15–17; TEMP 36.6–37; O2SAT 90–94
[2022-01-31 06:30] LABS: Glucose Point of Care 127 mg/dL (70-110)
[2022-01-31] MEDS: lisinopril 10 mg Tablet PO (09:58)
[2022-01-31] MEDS: cholecalciferol (vitamin D3) 5,000 unit Tablet 5000 UNIT PO (09:58)
[2022-01-31] MEDS: gabapentin 300 mg Capsule 600 MG PO ×2 (09:58→20:40)
[2022-01-31] MEDS: aspirin 81 mg EC Tablet PO (09:58)
[2022-01-31] MEDS: CELEcoxib 200 mg Capsule PO ×2 (09:58→20:41)
[2022-01-31] MEDS: gabapentin 400 mg Capsule 800 MG PO (09:59)
[2022-01-31] MEDS: donepezil 5 MG Tablet PO (09:59)
[2022-01-31] MEDS: citalopram 20 mg Tablet PO (09:59)
[2022-01-31] MEDS: carbidopa-levodopa 25-100mg Tablet PO ×3 (10:00→17:35)
[2022-01-31 11:47] LABS: Glucose Point of Care 305 mg/dL (70-110)
--- NOTE | 2022-01-31 12:57 | P.PN_ITS ---
Subjective Subjective: No issues awaiting assisted placement Vitals/I&O/Wt Last Vital Signs Temp 98.5 F 02/03/22 14:17 Pulse 68 02/03/22 14:17 Resp 17 02/03/22 14:17 BP 158/74 02/03/22 14:17 Pulse Ox 94 02/03/22 14:17 Physical Exam Narrative: Incision clean Urinary Catheter Management: Townsend: Cath Placed During This Visit: yes Reason for Continuing Indwelling Catheter: Acute Urinary Retention or Obstruction Urinary Catheter Date of Insertion: 01/29/22 Urinary Catheter Time of Insertion: 10:35 Data : 01/28/22 05:22 01/22/22 14:13 A&P Assessment and plan (1) Status post replacement of right shoulder joint: No acute issues awaiting placement Status: Acute Attestations Medical Necessity Statement*: Awaiting SNF placement Coding Level of Care Code Acute Structural Metal Worker for Taurus Mccarthy Diagnoses Status post replacement of right shoulder joint Z96.611
[2022-01-31] MEDS: insulin lispro 100 unit/1 mL SUBCUT ×3 (13:15→22:01)
[2022-01-31] MEDS: acetaminophen 500 mg Tablet 1000 MG PO ×2 (15:05→22:02)
--- NOTE | 2022-01-31 15:41 | PC.NURSE ---
Patient's Sp02 was 89%, advised her to put oxygen back on and patient did. I did not change the L flow. It was set at 3L.
[2022-01-31 17:45] LABS: Glucose Point of Care 291 mg/dL (70-110)
--- NOTE | 2022-01-31 18:30 | PC.NURSE ---
Assumed care of patient late shift, no c/o pain, resting in bed with frequent turns, AAOx4, no new events and no needs at this time. Room clean and clutter free, safe from accidents.
[2022-01-31 21:06] LABS: Glucose Point of Care 259 mg/dL (70-110)
[2022-02-01] VITALS (7 sets, daily range): BP systolic 130–152; BP diastolic 59–74; PULSE 58–74; RESP 17–18; TEMP 36.7–37.1; O2SAT 91–96
[2022-02-01] MEDS: acetaminophen 500 mg Tablet 1000 MG PO ×2 (06:24→22:30)
[2022-02-01 06:27] LABS: Glucose Point of Care 110 mg/dL (70-110)
[2022-02-01] MEDS: donepezil 5 MG Tablet PO (08:12)
[2022-02-01] MEDS: cholecalciferol (vitamin D3) 5,000 unit Tablet 5000 UNIT PO (08:12)
[2022-02-01] MEDS: aspirin 81 mg EC Tablet PO (08:12)
[2022-02-01] MEDS: gabapentin 400 mg Capsule 800 MG PO (08:12)
[2022-02-01] MEDS: citalopram 20 mg Tablet PO (08:12)
[2022-02-01] MEDS: lisinopril 10 mg Tablet PO (08:12)
[2022-02-01] MEDS: CELEcoxib 200 mg Capsule PO ×2 (08:12→20:09)
[2022-02-01] MEDS: carbidopa-levodopa 25-100mg Tablet PO ×3 (09:12→17:53)
[2022-02-01] MEDS: gabapentin 300 mg Capsule 600 MG PO ×2 (09:12→20:09)
--- NOTE | 2022-02-01 10:19 | PM.PN ---
Subjective Subjective: pain controlled, at bedside with Physical therapy Vitals/I&O/Wt Last Vital Signs Temp 98.0 F 02/01/22 07:43 Pulse 58 L 02/01/22 07:43 Resp 18 02/01/22 07:43 BP 130/74 02/01/22 07:43 Pulse Ox 91 02/01/22 07:43 01/31/22 02/01/22 02/01/22 22:59 06:59 14:59 Intake Total 1500 / 1999 Output Total 200 / 200 Balance 1500 / 2000 -200 / 1800 Physical Exam Narrative: dressing clean dry and intact Urinary Catheter Management: Townsend: Cath Placed During This Visit: yes Reason for Continuing Indwelling Catheter: Acute Urinary Retention or Obstruction Urinary Catheter Date of Insertion: 01/29/22 Urinary Catheter Time of Insertion: 10:35 Data : 01/28/22 05:22 01/22/22 14:13 A&P Assessment and plan (1) Status post replacement of right shoulder joint: continue therapy d/c planning when insurance clears Status: Acute Attestations Medical Necessity Statement*: ok to d/c to [place] Coding Level of Care Code Acute Behavioral Health Counselor for Chg Fwd Diagnoses Status post replacement of right shoulder joint Z96.611
[2022-02-01 10:57] LABS: Glucose Point of Care 286 mg/dL (70-110)
[2022-02-01] MEDS: insulin lispro 100 unit/1 mL SUBCUT ×3 (11:56→22:30)
--- NOTE | 2022-02-01 11:58 | PC.CHAP ---
Pastoral Care Encounter/Spiritual Assessment Type of Contact [] Declined manager radiation visit [] Patient/Family/Request visit [] Outpatient visit [] Follow-up visit [] Physician referral [] Code/Alert [X] Routine visit [] Staff referral [] Actively dying [] Patient sleeping [] Family support [] [] Out of room [] Palliative care [] [X] Receiving care in room [] Pre-surgical visit [] Trauma [] Long length of stay [] ICU visit [] Other: Relational/Emotional Strength [] Patient feels connected with others/family/visitors/staff [] Distress [] Loneliness/isolation [] Abandonment Spirituality of Patient [] Person of Ledy [] Attends Episcopalian of their Ledy [] Believes in Prayer [] Reads Bible or Mosque materials [] There are Spiritual issues to be addressed Delivery Person Interventions [] Prayer [] Active listening [] Non-anxious presence [] Spiritual/emotional support [] Crisis/trauma care [] Spiritual counseling [] Bereavement support [] Provided bereavement packet [] Provided Bible/devotional materials [] Provided toy/stuffed animal, coloring book to patient or family member [] Provided Communion [] Anointing/[place] [] Salvation [] Completed spiritual assessment [] Other: Impact on Illness or Injury [] Angry [] Fearful [] Anxious [] Often cries [] Exhaustion [] Unable to work [] Unable to attend sabianist [] Unable to walk/stand [] Unable to read [] Unable to drive [] Unable to eat/drink [] Unable to sleep [] Unable to be with family [] Patient intubated [] Other: Summary Time spent with patient
[2022-02-01 17:05] LABS: Glucose Point of Care 246 mg/dL (70-110)
--- NOTE | 2022-02-01 18:36 | PC.NURSE ---
Patient resting in bed, AAOx4, VSS, OOBTC during shift, shelby remains in place and patent, good UOP. No c/o pain, no new events, no needs at this time. WIll report to oncoming nurse at shift change.
[2022-02-01 21:08] LABS: Glucose Point of Care 218 mg/dL (70-110)
[2022-02-02 04:00] VITALS: BP 128/74; PULSE 64; RESP 17; TEMP 36.8; O2SAT 93
[2022-02-02] MEDS: acetaminophen 500 mg Tablet 1000 MG PO ×3 (06:01→20:46)
[2022-02-02 06:36] LABS: Glucose Point of Care 122 mg/dL (70-110)
[2022-02-02 07:49] VITALS: BP 123/74; PULSE 59; RESP 18; TEMP 36.7; O2SAT 95
--- NOTE | 2022-02-02 08:04 | PM.PN ---
Subjective Subjective: resting comfortably in bed watching TV no complaints Vitals/I&O/Wt Last Vital Signs Temp 98.1 F 02/02/22 07:49 Pulse 59 L 02/02/22 07:49 Resp 18 02/02/22 07:49 BP 123/74 02/02/22 07:49 Pulse Ox 95 02/02/22 07:49 02/01/22 02/02/22 02/02/22 22:59 06:59 14:59 Intake Total 120 / 600 Output Total 700 / 700 800 / 1500 Balance -580 / -100 -800 / -900 Physical Exam Narrative: sitting in bed dressing CDI Urinary Catheter Management: Townsend: Cath Placed During This Visit: yes Reason for Continuing Indwelling Catheter: Acute Urinary Retention or Obstruction Urinary Catheter Date of Insertion: 01/29/22 Urinary Catheter Time of Insertion: 10:35 Data : 01/28/22 05:22 01/22/22 14:13 A&P Assessment and plan (1) Status post replacement of right shoulder joint: awaiting insurance coverage d/c planning Status: Acute Attestations Medical Necessity Statement*: awaiting insurance Coding Level of Care Code Acute Power Press Supervisor for Chg Fwd Diagnoses Status post replacement of right shoulder joint Z96.611
[2022-02-02] MEDS: aspirin 81 mg EC Tablet PO (09:11)
[2022-02-02] MEDS: gabapentin 400 mg Capsule 800 MG PO (09:11)
[2022-02-02] MEDS: citalopram 20 mg Tablet PO (09:11)
[2022-02-02] MEDS: gabapentin 300 mg Capsule 600 MG PO ×2 (09:11→20:47)
[2022-02-02] MEDS: carbidopa-levodopa 25-100mg Tablet PO ×3 (09:11→18:00)
[2022-02-02] MEDS: CELEcoxib 200 mg Capsule PO ×2 (09:11→20:47)
[2022-02-02] MEDS: lisinopril 10 mg Tablet PO (09:11)
[2022-02-02] MEDS: donepezil 5 MG Tablet PO (09:11)
[2022-02-02] MEDS: cholecalciferol (vitamin D3) 5,000 unit Tablet 5000 UNIT PO (09:11)
[2022-02-02 11:11] LABS: Glucose Point of Care 311 mg/dL (70-110)
[2022-02-02 12:00] VITALS: BP 123/71; PULSE 64; RESP 18; TEMP 36.8; O2SAT 92
[2022-02-02] MEDS: insulin lispro 100 unit/1 mL SUBCUT ×3 (13:01→20:50)
[2022-02-02 16:00] VITALS: BP 131/72; PULSE 63; RESP 16; TEMP 36.9; O2SAT 94
[2022-02-02 17:11] LABS: Glucose Point of Care 267 mg/dL (70-110)
[2022-02-02] MEDS: magnesium citrate Btl 296 mL PO (19:51)
[2022-02-02 19:57] VITALS: BP 151/57; PULSE 77; RESP 22; TEMP 36.8; O2SAT 96
[2022-02-02 21:02] LABS: Glucose Point of Care 244 mg/dL (70-110)
[2022-02-03] VITALS: BP 174/61; PULSE 70; RESP 18; O2SAT 96
[2022-02-03 04:00] VITALS: BP 130/60; PULSE 66; RESP 21; TEMP 36.6; O2SAT 92
[2022-02-03] MEDS: acetaminophen 500 mg Tablet 1000 MG PO ×2 (05:30→13:01)
[2022-02-03 07:14] VITALS: BP 110/74; PULSE 85; RESP 17; TEMP 37.1; O2SAT 98
[2022-02-03] MEDS: carbidopa-levodopa 25-100mg Tablet PO ×2 (08:06→13:01)
[2022-02-03] MEDS: cholecalciferol (vitamin D3) 5,000 unit Tablet 5000 UNIT PO (08:06)
[2022-02-03] MEDS: citalopram 20 mg Tablet PO (08:06)
[2022-02-03] MEDS: CELEcoxib 200 mg Capsule PO (08:06)
[2022-02-03] MEDS: gabapentin 400 mg Capsule 800 MG PO (08:06)
[2022-02-03] MEDS: nystatin cream 30 gm 1 APPLIC TOPICAL (08:07)
[2022-02-03] MEDS: donepezil 5 MG Tablet PO (08:07)
[2022-02-03] MEDS: insulin lispro 100 unit/1 mL SUBCUT ×2 (08:07→13:01)
[2022-02-03] MEDS: aspirin 81 mg EC Tablet PO (08:07)
[2022-02-03] MEDS: lisinopril 10 mg Tablet PO (08:07)
[2022-02-03] MEDS: gabapentin 300 mg Capsule 600 MG PO (08:07)
[2022-02-03 09:56] LABS: Glucose Point of Care 180 mg/dL (70-110)
[2022-02-03] MEDS: magnesium citrate Btl 296 mL PO (10:06)
[2022-02-03 11:51] VITALS: BP 158/74; PULSE 68; RESP 17; TEMP 36.9; O2SAT 94
[2022-02-03 11:51] LABS: SARS Covid-2 Antigen Negative (Negative)
--- NOTE | 2022-02-03 12:16 | PM.DCS ---
Discharge Providers Date of Admission: 01/27/22 17:02 Date of Discharge: February 03, 2022 Attending Provider at Admission: Yonas Guzman MD Attending Provider at Discharge: Yonas Guzman MD Primary Care Provider: Evie Aguilar MD Diagnoses at Discharge Discharge Diagnosis (1) Status post replacement of right shoulder joint: Status: Acute (2) Fracture of humerus, proximal, right, closed: Status: Resolved Reason for Visit Reason for Visit: fx proximal humerus 22198/s42.209a Hospital Course Hospital Course The patient tolerated surgery well. They remained hemodynamically stable. They was begun on aspirin and SCDs for DVT prophylaxis. The patient was mobilized with therapy beginning the day after surgery due to difficulties with ambulation particularly with her shoulder surgery she was thought to be a candidate for intermediate transfer. Pain was adequately controlled and they were fully mobile they were discharged to a intermediate unit once accepting facility was found and insurance approval was obtained Physical Exam Narrative: On the day of discharge, the patient's right shoulder incision was clean and free of drainage. She would fire her deltoid in her biceps and had no distal motor deficits. Sensation was intact to light touch. Urinary Catheter Management: Townsend: Cath Placed During This Visit: yes Reason for Continuing Indwelling Catheter: Acute Urinary Retention or Obstruction Urinary Catheter Date of Insertion: 01/29/22 Urinary Catheter Time of Insertion: 10:35 Discharge Data Studies Completed and Pending Completed Studies During Hospitalization Category Date Time Status XR shoulder RT min 2V* [id number] Routine Exams 01/27/22 17:05 Completed Radiology Impressions Shoulder X-Ray 01/27/22 17:05 IMPRESSION: Right shoulder arthroplasty changes. Laboratory Results WBC 10.9 10^3/uL (4.0-10.0) H 01/22/22 14:13 RBC 3.66 10^6/uL (4.1-5.3) L 01/22/22 14:13 Hgb 10.1 g/dL (11.5-15.3) L 01/28/22 05:22 Hct 34.6 % (37.0-47.0) L 01/22/22 14:13 MCV 94.5 fl (81-99) 01/22/22 14:13 MCH 30.1 pg (28.0-34.0) 01/22/22 14:13 MCHC 31.8 g/dL (30.0-36.0) 01/22/22 14:13 RDW 15.0 % (12.1-15.1) 01/22/22 14:13 Plt Count 250 10^3/cmm (130-400) 01/22/22 14:13 MPV 9.1 fL (7.4-10.4) 01/22/22 14:13 Neut % (Auto) 83.8 % 01/22/22 14:13 Lymph % (Auto) 8.3 % 01/22/22 14:13 [place]ette % (Auto) 5.6 % 01/22/22 14:13 Eos % (Auto) 1.3 % 01/22/22 14:13 Baso % (Auto) 0.5 % 01/22/22 14:13 Neut # (Auto) 9.14 10^3/uL (1.8-7.7) H 01/22/22 14:13 Lymph # (Auto) 0.9 10^3/uL (0.8-4.8) 01/22/22 14:13 [place] # (Auto) 0.6 10^3/uL (0.2-0.9) 01/22/22 14:13 Eos # (Auto) 0.1 10^3/uL (0.0-0.8) 01/22/22 14:13 Baso # (Auto) 0.1 10^3/uL (0.0-0.1) 01/22/22 14:13 Nucleated RBC % (auto) 0 % 01/22/22 14:13 Nucleated RBCs # 0.0 /100WBC 01/22/22 14:13 Sodium 138 mmol/L (136-145) 01/22/22 14:13 Potassium 4.9 mmol/L (3.5-5.1) 01/22/22 14:13 Chloride 99 mmol/L (98-107) 01/22/22 14:13 Carbon Dioxide 29 mmol/L (22-29) 01/22/22 14:13 Anion Gap 14.9 (5-19) 01/22/22 14:13 BUN 28 mg/dL (8-23) H 01/22/22 14:13 Creatinine 0.9 mg/dL (0.5-0.9) 01/22/22 14:13 GFR Calculation 63.4 mL/min (90-130) L 01/22/22 14:13 Glucose 196 mg/dL (65-115) H 01/22/22 14:13 POC Glucose 180 mg/dL (70-110) H 02/03/22 05:52 Calculated Osmolality 297 mOsm/kg (285-295) H 01/22/22 14:13 Calcium 9.1 mg/dL (8.5-10.5) 01/22/22 14:13 SARS-CoV-2 Ag (Rapid) Negative (Negative) 02/03/22 01:30 Vitals Last Vital Signs Temp 98.5 F 02/03/22 11:51 Pulse 68 02/03/22 11:51 Resp 17 02/03/22 11:51 BP 158/74 02/03/22 11:51 Pulse Ox 94 02/03/22 11:51 Discharge Plan Discharge Patient Disposition: Xfer SNF Condition: Stable Prescriptions: New oxycodone 5 mg Tablet 10 mg PO Q4H PRN (Reason: Severe Pain) 7 Days Qty: 40 0RF Continued donepezil 5 mg tablet 5 mg PO DAILY 0RF gabapentin 800 mg tablet 800 mg PO DAILY 0RF Januvia 50 mg tablet 50 mg PO DAILY 0RF citalopram 20 mg tablet 20 mg PO DAILY 0RF lisinopril 10 mg tablet 10 mg PO DAILY 0RF glipizide 10 mg tablet 10 mg PO DAILY 0RF pantoprazole 40 mg tablet,delayed release (DR/EC) 40 mg PO DAILY PRN (Reason: Acid Reflux) 0RF aspirin [Adult Low Dose Aspirin] 81 mg tablet,delayed release (DR/EC) 81 mg PO DAILY 0RF Trulicity 1.5 mg/0.5 mL pen injector 1.5 mg SUBCUT DIRECTED 0RF hydrocodone-acetaminophen 5-325 mg tablet 1 tab PO Q6H PRN (Reason: pain) 7 Days Qty: 30 0RF gabapentin 600 mg tablet 600 mg PO BID Qty: 60 10RF carbidopa-levodopa [Sinemet] 25-100 mg tablet 1 tab PO .COMPLEX Qty: 150 11RF Rx Instructions: Take 2 tablets at 10AM, 2 tablets at 2PM, and 1 tablet at 6PM metformin 500 mg Tablet Extended Release 24 Hr 500 mg PO BID 0RF cholecalciferol (vitamin D3) [Vitamin D3] 125 mcg (5,000 unit) Tablet 225 mcg PO DAILY 0RF Discharge Orders: Discharge Order (Routine); Ordered 01/30/22 Ordered By: Yonas Guzman Referrals: [facility] [Outside] Yonas Guzman MD [Physician] - 03/04/22 10:15 am Discharge Diet: Advance as tolerated Discharge Activity: Limit activity as instructed Patient Instructions: Oxycodone/Acetaminophen (By mouth), Fractures - Humerus, Joint Replacement Surgery (DC), Shoulder Arthroplasty (DC) Activity Restrictions/Additional Instructions: Replaced dressing right shoulder as needed for drainage Okay to shower/bathe Occupational therapy for active range of motion right elbow shoulder and wrist, pendulum exercises right shoulder Discharge Attestations Time Spent in Discharge Care*: other Quality Metrics Clinical Quality Measures [ No reported AMI, CVA or VTE this stay] Coding Level of Care Code Acute Chg FW DC note Diagnoses Status post replacement of right shoulder joint Z96.611 Fracture of humerus, proximal, right, closed S42.201A
[2022-02-03 14:17] VITALS: BP 158/74; PULSE 68; RESP 17; TEMP 36.9; O2SAT 94
[2022-02-04 10:00] LABS: Glucose Point of Care 239 mg/dL (70-110)
== END 2022-02-03 14:18 | disposition skilled nursing facility (03) ==
LOC: MEDSURG 01-28 13:15
PROVIDERS: Anesthesiology; Admitting Provider Orthopaedic Surgery; PCP Internal Medicine; Visit Provider Orthopaedic Surgery
PROC: (CPT 23472; principal; 2022-01-27 11:00)
DX: S42.201A Unspecified fracture of upper end of right humerus, initial encounter for closed fracture (principal); X58.XXXA Exposure to other specified factors, initial encounter; I10 Essential (primary) hypertension; E78.5 Hyperlipidemia, unspecified; E11.9 Type 2 diabetes mellitus without complications; E66.01 Morbid (severe) obesity due to excess calories; Z68.42 Body mass index [BMI] 45.0-49.9, adult; G20 Parkinson's disease; K21.9 Gastro-esophageal reflux disease without esophagitis; Z79.82 Long term (current) use of aspirin; Z79.84 Long term (current) use of oral hypoglycemic drugs
CPT/HCPCS: 23472; 36415; 36416; 51702; 51798; 64415; 73030; 76942; 80048; 82962; 85018; 85025; 87426; 93005; 96372; 97110; 97161; 97167; 97530; 97535; C1713; C1776; G0378; J0690; J1100; J1170; J1580; J1815; J2250; J2270; J2370; J2405; J2704; J2710; J2795; J3010; J3490; J7030; J7040

== ENCOUNTER → 2022-03-04 10:20 | Outpatient (BNVA) | payer MEDICARE, MEDICAID, SELFPAY | PROVIDERS: PCP Internal Medicine; Visit Provider Orthopaedic Surgery | DX: Z96.611 Presence of right artificial shoulder joint (principal) | CPT/HCPCS: 73030 ==

== ENCOUNTER → 2022-04-08 10:02 | Outpatient (BNVA) | payer MEDICARE, MEDICAID, SELFPAY | PROVIDERS: PCP Internal Medicine; Visit Provider Nurse Practitioner Family | DX: Z96.611 Presence of right artificial shoulder joint (principal) | CPT/HCPCS: 73030 ==

== ENCOUNTER 2022-06-23 14:54 | Inpatient (IN) | payer MEDICARE, MEDICAID, SELFPAY ==
[2022-06-23 15:01] VITALS: BP 145/75; PULSE 81; RESP 18; TEMP 38.1; O2SAT 91; BMI 47.5
--- NOTE | 2022-06-23 15:17 | XRR_ITS ---
PROCEDURE INFORMATION: Exam: XR Chest Exam date and time: 06/23/2022 3:26 PM Age: 62 years old Clinical indication: Dyspnea TECHNIQUE: Imaging protocol: Radiologic exam of the chest. Views: 1 view. COMPARISON: CR XR shoulder RT min 2V* [id number] 04/08/2022 10:56 AM FINDINGS: Lungs: No consolidation. Pleural spaces: No pleural effusion. No pneumothorax. Heart/Mediastinum: No cardiomegaly. Bones/joints: Partially visualized reverse right total shoulder arthroplasty noted. Visualized osseous structures are intact. XR/XR chest 1V portable [id number] IMPRESSION: No acute findings.
--- NOTE | 2022-06-23 15:18 | ECG_ITS ---
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 Measurements Intervals [place] Rate: 77 P: 47 TN: 139 QRS: 5 QRSD: 91 T: 50 QT: 393 QTc: 447 Interpretive Statements SINUS RHYTHM NONSPECIFIC T-WAVE ABNORMALITY Compared to ECG 01/22/2022 13:36:27 T-wave abnormality now present Myocardial infarct finding no longer present Electronically Signed On 06-23-2022 17:34:52 CDT by Ilir Norris M.D. [id number]
--- NOTE | 2022-06-23 15:19 | W.ED.GENADLT ---
HPI - General Adult General: Chief complaint: ER Hold Stated complaint: FEVER/ WEAKNESS/ VOMITING Time Seen by Provider: 06/23/22 15:17 History of Present Illness: Patient is a 62-year-old female with a history of diabetes, hypertension, hyperlipidemia presents emergency room with fever respiratory distress cough and abdominal pain and diarrhea. Patient tells me that she has been having symptoms for last few days that has progressively worsened. Patient denies any complaints, melena hematochezia. Patient reports lower abdominal pain. Patient denies any sick contacts around her. Onset:3 days ago Duration:3 days Location:home Severity:moderate Associated symptoms: Reports dyspnea and malaise; Deny chest pain, nausea, rash, palpitations or vomiting Review of Systems Const: Reports: fatigue, malaise and other (+generalized weakness); Denies: fever(s) or chills Eyes: Denies: change in vision ENMT: Denies: mouth pain Card: Denies: chest pain or palpitations Resp: Reports: dyspnea and non-productive cough GI: Denies: abdominal pain, nausea, vomiting or diarrhea : Denies: dysuria Musc: Denies: extremity pain Skin/Breast: Denies: rash or new lesions Neuro: Denies: weakness in extremities Psych: Reports: other (Normal mood) Gomez/Lymph: Denies: easy bruising PFSH ED PFSH: Medical History Diabetes mellitus Diabetic neuropathy History of cataract Hyperlipidemia Hypertension Parkinson's disease Surgical History History of hand surgery Family History Other Cancer Diabetes Social History Smoking and tobacco status: never smoked Alcohol intake: never History of recent travel: No Physical Exam Const: COMMON NORMALS: alert HENMT: COMMON NORMALS: atraumatic HEAD & SCALP: atraumatic MOUTH: moist mucous membranes not abnormal Eye: COMMON NORMALS: EOMs intact bilaterally and conjunctivae normal CONJUNCTIVA: Yes conjunctivae normal Neck/C-Spine: COMMON NORMALS: full ROM and supple Resp: COMMON NORMALS: normal respiratory effort OTHER: +coarse breath sounds b/l Cardio: COMMON NORMALS: regular rate RATE: regular rate GI: COMMON NORMALS: Soft to palpation and non-tender PALPATION: Yes Soft to palpation OTHER: No focal TTP. NO guarding rebound, guarding, rigidity. No CVA tenderness to percussion. Neg Bolaños/Neg McBurney's point tenderness, no suprabupic tenderness to palpation. Extremity: COMMON NORMALS: full ROM Neuro: SENSORIUM/ORIENTATION: Yes alert MOTOR EXAM: No Abnormal motor strength present and Other motor observations present (no focal motor deficits) Psych: COMMON NORMALS: speech normal SPEECH: Yes normal speech MOOD & AFFECT: Yes euthymic mood Course Vital Signs: Vital signs: Vital Signs Temperature 98.6 F 06/25/22 11:53 Pulse Rate 67 06/25/22 11:53 Respiratory Rate 18 06/25/22 11:53 Blood Pressure 159/76 06/25/22 11:53 Pulse Oximetry 95 06/25/22 11:53 Oxygen Delivery Me thod 06/25/22 11:53 Oxygen Flow Rate 0 06/24/22 09:24 [facility] - General Adult Medical Decision Making Miguelina Goncalves is a 62 year old female with a past medical history of Parkinson's disease, insulin-dependent type 2 diabetes mellitus diabetic neuropathy, hypertension, morbid obesity, who presents [facility] due to altered mental status, fevers, fatigue, malaise.? Patient is on 4 L of oxygen with O2 sat of 92% coarse breath sounds. White count 12.7 today. COVID-negative. UA consistent with UTI. X-ray chest appears to be clear. CTA chest negative for pulmonary embolism. Given new oxygen requirement, UTI, and new onset of altered mental status, patient was admitted to hospital for further evaluation. Disposition: admissoin Lab Data : 06/25/22 04:58 06/25/22 04:58 Radiology Impressions Chest X-Ray 06/23/22 15:17 IMPRESSION: No acute findings. Abdomen/Pelvis CT 06/23/22 15:47 IMPRESSION: 1. No acute intra-abdominal findings. 2. Retroperitoneal lipomatosis which is likely a contributing factor to the clinical findings. 3. Bilateral small volume pleural effusions. Mild anasarca. COMMENTS: Consistent with the [employer]'s Incidental Findings Committee white paper (J Am Letty Radiol 2018): Any incidental renal lesion less than 1 cm or classified as too small to characterize, or any incidental cystic renal lesion characterized as simple-appearing, is likely benign. No follow-up imaging is recommended for these lesions per consensus recommendations based on imaging criteria. Chest CTA 06/23/22 19:47 IMPRESSION: 1. No pulmonary embolism identified. 2. Bilateral pleural effusions. 3. Dependent atelectasis in both lungs. Cannot exclude pneumonitis. 4. Prominent mediastinal and hilar lymph nodes, nonspecific. 5. Cardiomegaly. Laboratory Results WBC 14.5 10^3/uL (4.0-10.0) H 06/23/22 14:44 RBC 4.05 10^6/uL (4.1-5.3) L 06/23/22 14:44 Hgb 10.3 g/dL (11.5-15.3) L 06/23/22 14:44 Hct 34.2 % (37.0-47.0) L 06/23/22 14:44 MCV 84.4 fl (81-99) 06/23/22 14:44 MCH 25.4 pg (28.0-34.0) L 06/23/22 14:44 MCHC 30.1 g/dL (30.0-36.0) 06/23/22 14:44 RDW 15.6 % (12.1-15.1) H 06/23/22 14:44 Plt Count 193 10^3/cmm (130-400) 06/23/22 14:44 MPV 9.1 fL (7.4-10.4) 06/23/22 14:44 Neut % (Auto) 95.5 % 06/23/22 14:44 Lymph % (Auto) 1.9 % 06/23/22 14:44 Kane % (Auto) 1.7 % 06/23/22 14:44 Eos % (Auto) 0.3 % 06/23/22 14:44 Baso % (Auto) 0.3 % 06/23/22 14:44 Neut # (Auto) 13.83 10^3/uL (1.8-7.7) H 06/23/22 14:44 Lymph # (Auto) 0.3 10^3/uL (0.8-4.8) L 06/23/22 14:44 Kane # (Auto) 0.2 10^3/uL (0.2-0.9) 06/23/22 14:44 Eos # (Auto) 0.1 10^3/uL (0.0-0.8) 06/23/22 14:44 Baso # (Auto) 0.0 10^3/uL (0.0-0.1) 06/23/22 14:44 Nucleated RBC % (auto) 0 % 06/23/22 14:44 Nucleated RBCs # 0.0 /100WBC 06/23/22 14:44 D-Dimer 2.21 ug/mIFEU (0-0.59) H 06/23/22 14:44 Specimen Type Arterial 06/23/22 16:00 Sample Site Radial, right 06/23/22 16:00 ABG pH 7.42 (7.35-7.45) 06/23/22 16:00 ABG pCO2 46.7 mmHg (35-45) H 06/23/22 16:00 ABG pO2 94.6 mmHg (80.0-100.0) 06/23/22 16:00 ABG HCO3 30.4 mmol/L (22-26) H 06/23/22 16:00 ABG O2 Saturation 98.5 06/23/22 16:00 ABG Base Excess 5.2 mmol/L (-2.0-2.0) H 06/23/22 16:00 Martin Test Pos 06/23/22 16:00 A-a O2 Gradient 13.4 mmHg (5-10) H 06/23/22 16:00 Hematocrit 32.8 % (37-47) L 06/23/22 16:00 Hgb O2 Saturation 96.5 % (95-100) 06/23/22 16:00 Carboxyhemoglobin 1.8 %THgb (0.4-20.1) 06/23/22 16:00 Methemoglobin 0.2 % (0.4-1.5) L 06/23/22 16:00 Total Hemoglobin 10.7 g/dL (12-16) L 06/23/22 16:00 Sodium 142.0 mmol/L (131-143) 06/23/22 16:00 Potassium 3.3 mmol/L (3.5-5.0) L 06/23/22 16:00 Glucose 103.0 mg/dL (70-115) 06/23/22 16:00 Ionized Calcium 1.2 mmol/L (1.1-1.4) 06/23/22 16:00 O2 Delivery Device Nc 06/23/22 16:00 O2 Liters/Min 4.0 % 06/23/22 16:00 FiO2 36.0 % 06/23/22 16:00 Hearing Therapist ID Ed 06/23/22 16:00 Sodium 142 mmol/L (136-145) 06/23/22 14:44 Potassium 3.4 mmol/L (3.5-5.1) L 06/23/22 14:44 Chloride 102 mmol/L (98-107) 06/23/22 14:44 Carbon Dioxide 30 mmol/L (22-29) H 06/23/22 14:44 Anion Gap 13.4 (5-19) 06/23/22 14:44 BUN 16 mg/dL (8-23) 06/23/22 14:44 Creatinine 0.7 mg/dL (0.5-0.9) 06/23/22 14:44 GFR Calculation 84.5 mL/min (90-130) L 06/23/22 14:44 Glucose 100 mg/dL (65-115) 06/23/22 14:44 Estimat Average Glucose 120 06/23/22 14:40 Hemoglobin A1c 5.8 % (4.0-6.0) 06/23/22 14:40 Calculated Osmolality 295 mOsm/kg (285-295) 06/23/22 14:44 Calcium 8.3 mg/dL (8.5-10.5) L 06/23/22 14:44 Total Bilirubin 0.5 mg/dL (0.15-1.2) 06/23/22 14:44 AST 9 U/L (0-32) 06/23/22 14:44 ALT < 5 U/L (0-33) 06/23/22 14:44 Alkaline Phosphatase 79 U/L (35-105) 06/23/22 14:44 Troponin T Baseline 19 ng/L (0-10) H 06/23/22 14:44 Troponin T 120 Minute 21.11 ng/L (0-10) H 06/23/22 17:50 Delta Troponin T 2.11 ABS# (0-10) 06/23/22 17:50 C-Reactive Protein 24.9 mg/L (0.0-4.9) H 06/23/22 17:50 NT-Pro-B Natriuret Pep 658 pg/mL (0-125) H 06/23/22 14:44 Total Protein 6.4 g/dL (6.6-8.7) L 06/23/22 14:44 Albumin 3.5 g/dL (3.5-5.2) 06/23/22 14:44 Globulin 2.9 g/dL (1.3-4.6) 06/23/22 14:44 Lipase 25 U/L (13-60) 06/23/22 14:44 Procalcitonin 11.21 ng/mL (0-0.5) H 06/23/22 17:50 Urine Color Yellow (Yellow) 06/23/22 21:20 Urine Appearance Clear (CLEAR) 06/23/22 21:20 Urine pH 8 (5-7) H 06/23/22 21:20 Ur Specific Maysel 1.005 (1.005-1.030) 06/23/22 21:20 Urine Protein Trace (Negative) 06/23/22 21:20 Urine Glucose (UA) Norm (Normal) 06/23/22 21:20 Urine Ketones Negative (Negative) 06/23/22 21:20 Urine Blood Neg (Negative) 06/23/22 21:20 Urine Nitrate Positive (Negative) H 06/23/22 21:20 Urine Bilirubin Neg (Negative) 06/23/22 21:20 Prot Sulfosalicylic Acd Positive (Negative) 06/23/22 21:20 Urine Urobilinogen Norm mg/dL (Negative) 06/23/22 21:20 Ur Leukocyte Esterase Trace (Negative) H 06/23/22 21:20 Urine RBC 5-10 /hpf (0-2) H 06/23/22 21:20 Urine WBC 10-15 /hpf (0-5) H 06/23/22 21:20 Ur Squamous Epith Cells 15-25 /hpf (0-5) H 06/23/22 21:20 Amorphous Sediment Not Reportable 06/23/22 21:20 Urine Bacteria 3+ /hpf (NONE) H 06/23/22 21:20 Coronavirus 229E (PCR) Not detected (NOT DETECT) 06/23/22 15:32 SARS-CoV-2 (PCR) Not detected (NOT DETECT) 06/23/22 15:32 Imaging Data Other Imaging: Radiologist's impression: [employer] [place] [address] CT Scan Report Signed Patient: Miguelina Goncalves Unit #: [id number] : 1960 Age/Sex: 62 / F ADM Date: 06/23/22 Loc: ER Room/Bed: Attending Dr: Ordering Provider/Ordering MD: Sin Milian MD Date of Service: 06/23/22 Procedure(s): CT abdomen pelvis w con* [id number] Accession Number(s): [id number] Report Number: [id number] PROCEDURE INFORMATION: Exam: CT Abdomen And Pelvis With Contrast Exam date and time: 06/23/2022 5:26 PM Age: 62 years old Clinical indication: Bloating and constipation; Additional info: Abd distension TECHNIQUE: Imaging protocol: Computed tomography of the abdomen and pelvis with contrast. Radiation optimization: All CT scans at this facility use at least one of these dose optimization techniques: automated exposure control; mA and/or kV adjustment per patient size (includes targeted exams where dose is matched to clinical indication); or iterative reconstruction. Contrast material: [id number]; Contrast volume: 80 ml; Contrast route: INTRAVENOUS (IV);? COMPARISON: CR XR chest 1V portable [id number] 06/23/2022 3:26 PM RADIATION DOSE METRICS: Total DLP (mGy-cm): 1777.24 FINDINGS: Pleural spaces: Bilateral small volume pleural effusions, right greater than left. Liver: Normal. No mass. Gallbladder and bile ducts: Normal. No calcified stones. No ductal dilation. Pancreas: Normal. No ductal dilation. Spleen: Normal. No splenomegaly. Adrenal glands: Normal. No mass. Kidneys and ureters: A few scattered small cysts noted within both kidneys. No hydronephrosis. Stomach and bowel: Unremarkable. No obstruction. No mucosal thickening. Appendix: No evidence of appendicitis. Intraperitoneal space: Unremarkable. No free air. No significant fluid collection. Retroperitoneal space: Increased symmetric fat deposition within the retroperitoneal space predominantly centered around and inferior to the kidneys. There is no suspicious masslike soft tissue component within the fat. Vasculature: Unremarkable. No abdominal aortic aneurysm. Lymph nodes: Unremarkable. No enlarged lymph nodes. Urinary bladder: Unremarkable as visualized. Reproductive: Unremarkable as visualized. Bones/joints: No acute fracture. Soft tissues: Fat containing periumbilical hernia noted measuring 6.4 x 5.[address]/CT abdomen pelvis w con* [id number] IMPRESSION: 1. No acute intra-abdominal findings. 2. Retroperitoneal lipomatosis which is likely a contributing factor to the clinical findings. 3. Bilateral small volume pleural effusions. Mild anasarca. ? COMMENTS: Consistent with the [place] [employer]'s Incidental Findings Committee white paper (J Am Letty Radiol 2018): Any incidental renal lesion less than 1 cm or classified as too small to characterize, or any incidental cystic renal lesion characterized as simple-appearing, is likely benign. No follow-up imaging is recommended for these lesions per consensus recommendations based on imaging criteria. ? Dictated By: Magdaleno Owens DO Signed By: Magdaleno Owens DO Signed Date/Time: 06/23/22 180 DD/ [address] [address] XRay Report Signed Patient: Miguelina Goncalves Unit #: [id number] : 1960 Age/Sex: 62 / F ADM Date: 06/23/22 Loc: ER Room/Bed: Attending Dr: Ordering Provider/Ordering MD: Sin Milian MD Date of Service: 06/23/22 Procedure(s): XR chest 1V portable [id number] Accession Number(s): [id number] Report Number: [id number] PROCEDURE INFORMATION: Exam: XR Chest Exam date and time: 06/23/2022 3:26 PM Age: 62 years old Clinical indication: Dyspnea TECHNIQUE: Imaging protocol: Radiologic exam of the chest. Views: 1 view. COMPARISON: CR XR shoulder RT min 2V* [id number] 04/08/2022 10:56 AM FINDINGS: Lungs: No consolidation. Pleural spaces: No pleural effusion. No pneumothorax. Heart/Mediastinum: No cardiomegaly. Bones/joints: Partially visualized reverse right total shoulder arthroplasty noted. Visualized osseous structures are intact. XR/XR chest 1V portable [id number] IMPRESSION: No acute findings. ? Dictated By: Magdaleno Owens DO Signed By: Magdaleno Owens DO Signed Date/Time: 06/23/22 1603 DD/ [address] [address] [address] Scan Report Signed Patient: Miguelina Goncalves Unit #: [id number] : 1960 Age/Sex: 62 / F ADM Date: 06/23/22 Loc: ER IP Room/Bed: [place] [address]: Andrei Puente MD Ordering Provider/Ordering MD: Sin Milian MD Date of Service: 06/23/22 Procedure(s): CT angio chest PE protcl [id number] Accession Number(s): [id number] Report Number: [id number] PROCEDURE INFORMATION: Exam: CTA Chest With Contrast Exam date and time: 06/23/2022 8:35 PM Age: 62 years old Clinical indication: Abnormal findings; Abnormal diagnostic tests; Elevated d-dimer; Shortness of breath; Patient HX: SOB with hypoxia on monitor. Elevated d dimer. ; Additional info: Hypoxemia, elevated dimer TECHNIQUE: Imaging protocol: Computed tomographic angiography of the chest with contrast. 3D rendering (Not supervised by radiologist): MIP and/or 3D reconstructed images were created by the technologist. Radiation optimization: All CT scans at this facility use at least one of these dose optimization techniques: automated exposure control; mA and/or kV adjustment per patient size (includes targeted exams where dose is matched to clinical indication); or iterative reconstruction. Contrast material: OMNI 350; Contrast volume: 90 ml; Contrast route: INTRAVENOUS (IV);? COMPARISON: CR XR chest 1V portable [id number] 06/23/2022 3:26 PM RADIATION DOSE METRICS: Total DLP (mGy-cm): 470.8 FINDINGS: Pulmonary arteries: No pulmonary embolism is identified. Aorta: The thoracic aorta is normal caliber. No aneurysm or dissection is seen. Lungs: Dependent atelectasis is seen in both lungs. Cannot exclude pneumonitis. There is evidence of previous granulomatous reaction. Pleural spaces: There are bilateral pleural effusions, moderate on the right, small on the left. Heart: Cardiomegaly. Coronary arterial calcifications are noted. No significant pericardial effusion. Lymph nodes:? Prominent mediastinal and hilar lymph nodes, nonspecific. Bones/joints: No acute fracture identified. Soft tissues: Unremarkable. CT/CT angio chest PE protcl [id number] IMPRESSION: 1. No pulmonary embolism identified. 2. Bilateral pleural effusions. 3. Dependent atelectasis in both lungs. Cannot exclude pneumonitis. 4. Prominent mediastinal and hilar lymph nodes, nonspecific. 5. Cardiomegaly. ? Dictated By: Deborah Yang MD Signed By: Deborah Yang MD Signed Date/Time: 06/23/222148 DD/ 34 Discharge Plan Discharge Patient Disposition: Admitted As Inpatient Admit Provider: Andrei Puente Clinical Impression: Fever, Hypoxemia, Cough Condition: Stable Discharge Diet: Cardiac and Diabetic Discharge Activity: Increase activity as tolerated Coding Level of Care Code ED Hydraulic Tester for Chg Fwd Exam Comprehensive
[2022-06-23 15:30] LABS: Basophils % 0.3 %; Eosinophils # 0.1 10^3/uL (0.0-0.8); Eosinophils % 0.3 %; Hematocrit 34.2 % (37.0-47.0); Hemoglobin 10.3 g/dL (11.5-15.3); Lymphocytes # 0.3 10^3/uL (0.8-4.8); Lymphocytes % 1.9 %; Mean Corpuscular HGB Conc 30.1 g/dL (30.0-36.0); Mean Corpuscular Hemoglobin 25.4 pg (28.0-34.0); Mean Corpuscular Volume 84.4 fl (81-99); Mean Platelet Volume 9.1 fL (7.4-10.4); Monocytes # 0.2 10^3/uL (0.2-0.9); Monocytes % 1.7 %; Neutrophils # 13.83 10^3/uL (1.8-7.7); Neutrophils % 95.5 %; Nucleated Red Blood Cells % 0 %; Platelet Count 193 10^3/cmm (130-400); Red Blood Count 4.05 10^6/uL (4.1-5.3); Red Cell Distribution Width 15.6 % (12.1-15.1); White Blood Count 14.5 10^3/uL (4.0-10.0)
[2022-06-23 15:47] LABS: Troponin(5th) Baseline 19 ng/L (0-10)
--- NOTE | 2022-06-23 15:47 | CTR_ITS ---
PROCEDURE INFORMATION: Exam: CT Abdomen And Pelvis With Contrast Exam date and time: 06/23/2022 5:26 PM Age: 62 years old Clinical indication: Bloating and constipation; Additional info: Abd distension TECHNIQUE: Imaging protocol: Computed tomography of the abdomen and pelvis with contrast. Radiation optimization: All CT scans at this facility use at least one of these dose optimization techniques: automated exposure control; mA and/or kV adjustment per patient size (includes targeted exams where dose is matched to clinical indication); or iterative reconstruction. Contrast material: [id number]; Contrast volume: 80 ml; Contrast route: INTRAVENOUS (IV); COMPARISON: CR XR chest 1V portable [id number] 06/23/2022 3:26 PM RADIATION DOSE METRICS: Total DLP (mGy-cm): 1777.24 FINDINGS: Pleural spaces: Bilateral small volume pleural effusions, right greater than left. Liver: Normal. No mass. Gallbladder and bile ducts: Normal. No calcified stones. No ductal dilation. Pancreas: Normal. No ductal dilation. Spleen: Normal. No splenomegaly. Adrenal glands: Normal. No mass. Kidneys and ureters: A few scattered small cysts noted within both kidneys. No hydronephrosis. Stomach and bowel: Unremarkable. No obstruction. No mucosal thickening. Appendix: No evidence of appendicitis. Intraperitoneal space: Unremarkable. No free air. No significant fluid collection. Retroperitoneal space: Increased symmetric fat deposition within the retroperitoneal space predominantly centered around and inferior to the kidneys. There is no suspicious masslike soft tissue component within the fat. Vasculature: Unremarkable. No abdominal aortic aneurysm. Lymph nodes: Unremarkable. No enlarged lymph nodes. Urinary bladder: Unremarkable as visualized. Reproductive: Unremarkable as visualized. Bones/joints: No acute fracture. Soft tissues: Fat containing periumbilical hernia noted measuring 6.4 x 5.[address]/CT abdomen pelvis w con* [id number] IMPRESSION: 1. No acute intra-abdominal findings. 2. Retroperitoneal lipomatosis which is likely a contributing factor to the clinical findings. 3. Bilateral small volume pleural effusions. Mild anasarca. COMMENTS: Consistent with the [place] [employer]'s Incidental Findings Committee white paper (J Am Letty Radiol 2018): Any incidental renal lesion less than 1 cm or classified as too small to characterize, or any incidental cystic renal lesion characterized as simple-appearing, is likely benign. No follow-up imaging is recommended for these lesions per consensus recommendations based on imaging criteria.
[2022-06-23 15:50] LABS: Alanine Aminotransferase < 5 U/L (0-33); Albumin Level 3.5 g/dL (3.5-5.2); Alkaline Phosphatase 79 U/L (35-105); Anion Gap 13.4 (5-19); Aspartate Amino Transferase 9 U/L (0-32); Blood Urea Nitrogen 16 mg/dL (8-23); Calcium 8.3 mg/dL (8.5-10.5); Carbon Dioxide 30 mmol/L (22-29); Chloride 102 mmol/L (98-107); Creatinine Clr Calc Pharmacy 100.2964; Globulin 2.9 g/dL (1.3-4.6); Glomerular Filtration Rate 84.5 mL/min (90-130); Glucose 100 mg/dL (65-115); Lipase 25 U/L (13-60); NT Pro B Type Natriuretic Pept 658 pg/mL (0-125); Osmolality Calculated 295 mOsm/kg (285-295); Potassium 3.4 mmol/L (3.5-5.1); Sodium 142 mmol/L (136-145); Total Bilirubin 0.5 mg/dL (0.15-1.2); Total Protein 6.4 g/dL (6.6-8.7)
[2022-06-23 16:09] LABS: ABG PCO2 46.7 mmHg (35-45); ABG PH Result 7.42 (7.35-7.45); Alveolar-Arterial Oxygen Gradi 13.4 mmHg (5-10); Arterial Blood Gas Hematocrit 32.8 % (37-47); Base Excess ABG 5.2 mmol/L (-2.0-2.0); Blood Gas Allen Test Pos; Blood Gas Operator Identificat ED; Blood Gas Sample Site Radial, right; Blood Gas Sample Type Arterial; Carboxyhemoglobin 1.8 %THgb (0.4-20.1); HCO3 ABG 30.4 mmol/L (22-26); HGB O2 Sat 96.5 % (95-100); Ionized Calcium Level - ABG 1.2 mmol/L (1.1-1.4); Methemoglobin 0.2 % (0.4-1.5); Oxygen Device NC; Oxygen Saturation ABG 98.5; PO2 ABG 94.6 mmHg (80.0-100.0); Potassium Level - ABG 3.3 mmol/L (3.5-5.0); Total Hemoglobin 10.7 g/dL (12-16)
[2022-06-23] MEDS: acetaminophen 500 mg Tablet 1000 MG PO (17:07)
--- NOTE | 2022-06-23 17:17 | PC.PHAR ---
pt is from [facility]-per casandra nurse at [facility] states the pt had all am meds
[2022-06-23 17:25] LABS: Adenovirus Not Detected (NOT DETECT); Chlamydia Pneumoniae Not Detected (NOT DETECT); Coronavirus 229E,HKU1,NL63,OC4 Not Detected (NOT DETECT); Human Metapneumovirus Not Detected (NOT DETECT); Human Rhinovirus/Enterovirus Not Detected (NOT DETECT); Influenza A Not Detected (NOT DETECT); Influenza A H1 Not Detected (NOT DETECT); Influenza A H1-2009 Not Detected (NOT DETECT); Influenza A H3 Not Detected (NOT DETECT); Influenza B Not Detected (NOT DETECT); Mycoplasma Pneumoniae Not Detected (NOT DETECT); Parainfluenza Virus Type 1 Not Detected (NOT DETECT); Parainfluenza Virus Type 2 Not Detected (NOT DETECT); Parainfluenza Virus Type 3 Not Detected (NOT DETECT); Parainfluenza Virus Type 4 Not Detected (NOT DETECT); Respiratory Syncytial Virus A Not Detected (NOT DETECT); Respiratory Syncytial Virus B Not Detected (NOT DETECT); SARS-COV-2 Not Detected (NOT DETECT)
[2022-06-23] MEDS: iohexol 350 mg/mL 100 mL Btl IV ×2 (17:29→20:38)
[2022-06-23 18:21] LABS: Troponin 5 2HR 21.11 ng/L (0-10)
[2022-06-23 18:24] LABS: Troponin 5 2HR Delta 2.11 ABS# (0-10)
--- NOTE | 2022-06-23 18:24 | ECG_ITS ---
[facility] Test Date: 2022-06-23 Pat Name: Miguelina Goncalves Department: Room: Gender: Female President And Chief Executive Officer: : 1960 Requested By: Sin Milian Order Number: [id number] Reading MD: Ilir Norris M.D. Measurements Intervals [place] Rate: 81 P: 54 GA: 145 QRS: 2 QRSD: 90 T: 49 QT: 394 QTc: 460 Interpretive Statements SINUS RHYTHM Compared to ECG 06/23/2022 15:27:23 T-wave abnormality no longer present Electronically Signed On 06-23-2022 18:52:31 CDT by Ilir Norris M.D. [email or web address]
--- NOTE | 2022-06-23 19:02 | PC.NURSE ---
REPORT GIVEN TO DENIS GARCIA ASSUMED CARE.
[2022-06-23 19:03] VITALS: BP 139/70; PULSE 79; RESP 16; O2SAT 97
[2022-06-23 19:44] LABS: D Dimer 2.21 ug/mIFEU (0-0.59)
[2022-06-23] MEDS: cefepime 1,000 MG in sodium chloride 0.9% (plus) 50 ML 100 MG IV (19:47)
--- NOTE | 2022-06-23 19:47 | CTR_ITS ---
PROCEDURE INFORMATION: Exam: CTA Chest With Contrast Exam date and time: 06/23/2022 8:35 PM Age: 62 years old Clinical indication: Abnormal findings; Abnormal diagnostic tests; Elevated d-dimer; Shortness of breath; Patient HX: SOB with hypoxia on monitor. Elevated d dimer. ; Additional info: Hypoxemia, elevated dimer TECHNIQUE: Imaging protocol: Computed tomographic angiography of the chest with contrast. 3D rendering (Not supervised by radiologist): MIP and/or 3D reconstructed images were created by the technologist. Radiation optimization: All CT scans at this facility use at least one of these dose optimization techniques: automated exposure control; mA and/or kV adjustment per patient size (includes targeted exams where dose is matched to clinical indication); or iterative reconstruction. Contrast material: OMNI 350; Contrast volume: 90 ml; Contrast route: INTRAVENOUS (IV); COMPARISON: CR XR chest 1V portable [id number] 06/23/2022 3:26 PM RADIATION DOSE METRICS: Total DLP (mGy-cm): 470.8 FINDINGS: Pulmonary arteries: No pulmonary embolism is identified. Aorta: The thoracic aorta is normal caliber. No aneurysm or dissection is seen. Lungs: Dependent atelectasis is seen in both lungs. Cannot exclude pneumonitis. There is evidence of previous granulomatous reaction. Pleural spaces: There are bilateral pleural effusions, moderate on the right, small on the left. Heart: Cardiomegaly. Coronary arterial calcifications are noted. No significant pericardial effusion. Lymph nodes: Prominent mediastinal and hilar lymph nodes, nonspecific. Bones/joints: No acute fracture identified. Soft tissues: Unremarkable. CT/CT angio chest PE protcl [id number] IMPRESSION: 1. No pulmonary embolism identified. 2. Bilateral pleural effusions. 3. Dependent atelectasis in both lungs. Cannot exclude pneumonitis. 4. Prominent mediastinal and hilar lymph nodes, nonspecific. 5. Cardiomegaly.
[2022-06-23 19:56] LABS: C Reactive Protein 24.9 mg/L (0.0-4.9)
[2022-06-23 20:01] LABS: Procalcitonin 11.21 ng/mL (0-0.5)
--- NOTE | 2022-06-23 21:25 | PC.NURSE ---
pt cleaned from urinary incontinence. shelby placed per DR jose maria palacio
--- NOTE | 2022-06-23 21:28 | P.HP_ITS ---
Providers/Chief Complaint Primary Care Provider: Evie Aguilar MD Chief Complaint: FEVER/ WEAKNESS/ VOMITING History of Present Illness Miguelina Goncalves is a 62 year old female with a past medical history of Parkinson's disease, insulin-dependent type 2 diabetes mellitus diabetic neuropathy, hypertension, morbid obesity, who presents [facility] due to altered mental status, fevers, fatigue, malaise. Currently patient is alert to person, not to place, not to time, she does arouse, but falls asleep, when asked her why she is here in the hospital she tells me that she vomited, but then falls back asleep, right now she is running a high fever it seems like. She does follow commands suggest wheezing my fingers, she can open up her eyes, but falls back asleep. No history of sleep apnea, no significant hypercarbia seen on her blood work. She does have a UTI. She is on 4 L does not use [facility]. I spoke to the staff at the [facility], she was doing well this morning, normally she ambulates with some assistance, but can get to and from the bathroom without an issue, she uses a scooter, she was doing relatively fine for the for the last week and then this morning. This afternoon when nursing staff checkup on her she was acting confused, she had an episode of vomiting, nausea. And they checked her O2 sats and they were in the low 70s, they COVID tested her and she was negative. Review of Systems General: Reports: ROS unobtainable due to mental status Medications/Allergies Home Medications Medication Instructions Recorded Confirmed Last Taken Type aspirin 81 mg tablet,delayed 81 mg PO DAILY@08 01/31/20 06/23/22 06/23/22 History release (Adult Low Dose Aspirin) gabapentin 800 mg tablet 800 mg PO DAILY@13 01/31/20 06/23/22 06/23/22 13:43 History gabapentin 600 mg tablet 600 mg PO BID #60 tabs 11/06/21 06/23/22 06/23/22 07:47 Rx carbidopa 25 mg-levodopa 100 mg 1 tab PO .COMPLEX #150 tabs 11/13/21 06/23/22 06/23/22 Rx tablet (Sinemet) dulaglutide 1.5 mg/0.5 mL 1.5 mg SUBCUT DIRECTED 01/21/22 06/23/22 06/20/22 History subcutaneous pen injector (Trulicity) hydrocodone 5 mg-acetaminophen 325 1 tab PO Q6H PRN pain 7 days #30 01/21/22 06/23/22 06/18/22 Rx mg tablet tabs cholecalciferol (vitamin D3) 125 125 mcg PO DAILY@08 01/22/22 06/23/22 06/23/22 History mcg (5,000 unit) tablet (Vitamin D3) ammonium lactate 12 % topical cream 1 applic topical DAILY #385 grams 06/17/22 06/23/22 06/23/22 Rx bisacodyl 5 mg tablet,delayed 10 mg PO DAILY PRN Constipation 06/17/22 06/23/22 Unknown History release (Dulcolax (bisacodyl)) insulin degludec 100 unit/mL 18 unit SUBCUT BEDTIME@20 06/17/22 06/23/22 06/22/22 History subcutaneous solution (Tresiba U-100 Insulin) magnesium hydroxide 400 mg/5 mL 30 ml PO DAILY PRN Constipation 06/17/22 06/23/22 Unknown History oral suspension (Milk of Magnesia) miconazole nitrate 2 % topical 1 applic topical BID 6 weeks #42.5 06/17/22 06/23/22 Unknown Rx cream grams pantoprazole 40 mg tablet,delayed 40 mg PO DAILY PRN gerd 06/17/22 06/23/22 Unknown History release sodium phosphates 19 gram-7 118 ml LA DAILY PRN Constipation 06/17/22 06/23/22 Unknown History gram/118 mL enema (Fleet Enema) terbinafine HCl 250 mg tablet 250 mg PO DAILY@06/17/22 06/23/22 06/23/22 History acetaminophen 325 mg tablet 650 mg PO Q6H PRN Pain 06/23/22 06/23/22 Unknown History (Tylenol) bisacodyl 10 mg rectal suppository 10 mg LA DAILY PRN Constipation 06/23/22 06/23/22 Unknown History (Dulcolax (bisacodyl)) citalopram 20 mg tablet (Celexa) 20 mg PO DAILY@08 06/23/22 06/23/22 06/23/22 History insulin lispro 100 unit/mL See Rx Instructions .Route .COMPLEX 06/23/22 06/23/22 06/23/22 History subcutaneous solution (Humalog U-100 Insulin) ketoconazole 2 % shampoo 1 applic topical .ON MON AND THURS 06/23/22 06/23/22 06/23/22 History Allergies Allergy/AdvReac Type Severity Reaction Status Date / Time ampicillin Allergy Unknown Rash and Verified 06/23/22 16:57 Itching PFSH Acute PFSH: Medical History Diabetes mellitus Diabetic neuropathy History of cataract Hyperlipidemia Hypertension Parkinson's disease Surgical History History of hand surgery Family History Other Cancer Diabetes Social History Smoking and tobacco status: never smoked Alcohol intake: never History of recent travel: No Vitals/I&O/Wt Last Vital Signs Temp 100.6 F H 06/23/22 15:01 Pulse 81 06/23/22 15:01 Resp 18 06/23/22 15:01 BP 145/75 06/23/22 15:01 Pulse Ox 91 06/23/22 15:01 O2 Del Method 06/23/22 15:01 O2 Flow Rate 4 06/23/22 15:01 06/23/22 06/23/22 06/23/22 06:59 14:59 22:59 Intake Total 50 / 50 Balance 50 / 50 Weight last 48 hrs Weight 117.934 kg Physical Exam Const: COMMON NORMALS: no acute distress and patient oriented x3 EXAM LIMITATIONS: altered mental status ORIENTATION/CONSCIOUSNESS: Yes awake and Yes oriented to person; not oriented to place and not oriented to time HENMT: COMMON NORMALS: normocephalic HEAD & SCALP: normocephalic Eye: COMMON NORMALS: Equal, round and reactive pupils present Neck/C-Spine: COMMON NORMALS: no JVD Resp: COMMON NORMALS: normal respiratory effort, No retractions, No use of accessory muscles and clear to auscultation bilaterally AUSCULTATION: clear to auscultation bilaterally Cardio: COMMON NORMALS: no JVD, regular rate, regular rhythm, S1 normal heart sound present and S2 normal heart sound present RATE: regular rate RHYTHM: regular rhythm HEART SOUNDS: S1 normal heart sound present and S2 normal heart sound present GI: COMMON NORMALS: Normal to inspection, nondistended, normoactive bowel sounds present, Soft to palpation, non-tender, No hepatosplenomegaly present, no masses and no bruits PALPATION: Yes Soft to palpation and Yes No hepatosplenomegaly present OTHER: Large pannus, erythema between her skin folds Extremity: COMMON NORMALS: capillary refill normal, no clubbing, cyanosis or edema, no calf tenderness and no pedal edema Neuro: OTHER: Unable to follow neurologic testing Urinary Catheter Management: Townsend: Cath Placed During This Visit: yes Urinary Catheter Date of Insertion: 06/23/22 Urinary Catheter Time of Insertion: 21:26 Data : 06/23/22 14:44 06/23/22 14:44 A&P Assessment and plan (1) Acute encephalopathy: Status: Acute (2) UTI (urinary tract infection): Status: Acute (3) Hypoxemia: Status: Acute Plan Acute encephalopathy -Likely related to underlying UTI -CT scan negative for obstructive uropathy, nephrolithiasis, pyelonephritis -Continue primaxin -Neurochecks, aspiration precautions -Blood cultures, urine cultures -Full code -Lovenox for DVT prophylaxis Hypoxemia? -Does not use oxygen at the [facility], no history of COPD, no documented history of obesity hypoventilation syndrome -D-dimer is elevated, CT angiogram has been ordered -Currently on 4 L, titrate down as needed -Potentially could have CHAPO, sleep apnea, will place on CPAP during the night -Does have evidence of slight fluid overload, nonpitting edema, bilateral fluid overload, bilateral pleural effusions we will give 1 dose of Lasix Type 2 diabetes mellitus, A1c, low-dose sliding scale Parkinson's disease, continue home medications Attestations Medical Necessity Statement*: Patient requires hospitalization, inpatient, greater than 2 midnights, for acute encephalopathy, UTI, hypoxemia Coding Level of Care Code Acute Ceramic Coater Machine for [facility] Fwd Exam Comprehensive Diagnoses Acute encephalopathy G93.40 UTI (urinary tract infection) N39.0 Hypoxemia R09.02
[2022-06-23 21:33] LABS: Add Urine Culture? No; Bacteria Urine 3+ /hpf; Bilirubin Urine Neg (Negative); Blood Urine Neg (Negative); Glucose Urine UA Norm (Normal); Ketones Urine Negative (Negative); Leukocyte Esterase Urine Trace (Negative); Nitrate Urine Positive (Negative); Protein Urine Trace (Negative); Specific Gravity, Urine 1.005 (1.005-1.030); Squamous Epithelial Cell Urine 15-25 /hpf (0-5); Sulfosalicylic Acid Urine Positive (Negative); Urine Appearance Clear (CLEAR); Urine Color Yellow (Yellow); Urobilinogen Urine Norm (Negative); pH Urine 8 (5-7)
[2022-06-23] MEDS: vancomycin 1,000 MG in sodium chloride 0.9% 250 ML 250 MG IV (21:44)
[2022-06-23 22:19] VITALS: BP 137/66; PULSE 73; RESP 16; O2SAT 97
[2022-06-24] VITALS (23 sets, daily range): BP systolic 102–171; BP diastolic 55–113; PULSE 71–80; RESP 17–26; TEMP 36.6–37.3; O2SAT 90–99
[2022-06-24] MEDS: FUROsemide 10 mg/mL SDV 4mL 40 MG IVP (01:02)
[2022-06-24] MEDS: enoxaparin 40 mg/0.4 mL Syringe SUBCUT ×2 (01:04→23:32)
[2022-06-24 02:44] LABS: Basophils # 0.1 10^3/uL (0.0-0.1); Basophils % 0.3 %; Hemoglobin 9.9 g/dL (11.5-15.3); Lymphocytes # 0.3 10^3/uL (0.8-4.8); Lymphocytes % 1.4 %; Mean Corpuscular HGB Conc 29.1 g/dL (30.0-36.0); Mean Corpuscular Hemoglobin 24.9 pg (28.0-34.0); Mean Corpuscular Volume 85.6 fl (81-99); Mean Platelet Volume 9.5 fL (7.4-10.4); Monocytes # 0.4 10^3/uL (0.2-0.9); Monocytes % 1.5 %; Neutrophils # 23.76 10^3/uL (1.8-7.7); Neutrophils % 96.1 %; Nucleated Red Blood Cells % 0 %; Platelet Count 189 10^3/cmm (130-400); Red Blood Count 3.97 10^6/uL (4.1-5.3); Red Cell Distribution Width 15.9 % (12.1-15.1); White Blood Count 24.7 10^3/uL (4.0-10.0)
[2022-06-24 02:45] LABS: Estmated Average Glucose 120; Hemoglobin A1C 5.8 % (4.0-6.0)
[2022-06-24 03:14] LABS: Lactate (Lactic Acid level) 1.8 mmol/L (0.5-2.2)
[2022-06-24 03:15] LABS: Ammonia 24 umol/L (11-51)
[2022-06-24 03:35] LABS: Procalcitonin 27.22 ng/mL (0-0.5)
[2022-06-24 03:46] LABS: Alanine Aminotransferase < 5 U/L (0-33); Albumin Level 3.3 g/dL (3.5-5.2); Alkaline Phosphatase 72 U/L (35-105); Anion Gap 18.7 (5-19); Aspartate Amino Transferase 10 U/L (0-32); Blood Urea Nitrogen 18 mg/dL (8-23); C Reactive Protein 119.5 mg/L (0.0-4.9); Calcium 8.3 mg/dL (8.5-10.5); Carbon Dioxide 26 mmol/L (22-29); Chloride 98 mmol/L (98-107); Chol HDL Ratio 2.16 mg/dL (0.0-4.40); Cholesterol 125 mg/dL (0-200); Globulin 3.2 g/dL (1.3-4.6); Glomerular Filtration Rate 63.2 mL/min (90-130); Glucose 180 mg/dL (65-115); HDL Cholesterol 58 mg/dL (60-100); LDL Cholesterol Calculated 57 mg/dL (50-129); LDL HDL Ratio 0.98 RATIO (0.00-3.22); Magnesium 1.3 mg/dL (1.7-2.3); Osmolality Calculated 294 mOsm/kg (285-295); Phosphorus 4.1 mg/dL (2.5-4.5); Potassium 3.7 mmol/L (3.5-5.1); Sodium 139 mmol/L (136-145); Total Bilirubin 0.8 mg/dL (0.15-1.2); Total Protein 6.5 g/dL (6.6-8.7); Triglycerides 52 mg/dL (0-150)
[2022-06-24] MEDS: aspirin 81 mg EC Tablet PO (07:41)
[2022-06-24] MEDS: citalopram 20 mg Tablet PO (07:41)
[2022-06-24] MEDS: insulin lispro 100 unit/1 mL SUBCUT (07:56)
[2022-06-24 07:57] LABS: Glucose Point of Care 191 mg/dL (70-110)
[2022-06-24] MEDS: vancomycin 1,000 MG in sodium chloride 0.9% 250 ML 250 MG IV ×2 (11:27→23:32)
[2022-06-24] MEDS: gabapentin 300 mg Capsule 600 MG PO ×2 (11:31→18:10)
[2022-06-24] MEDS: pantoprazole DR 40 mg Tablet PO (11:31)
[2022-06-24 11:53] LABS: Glucose Point of Care 145 mg/dL (70-110)
[2022-06-24] MEDS: carbidopa-levodopa 25-100mg Tablet 2 EACH PO ×2 (11:57→17:21)
[2022-06-24] MEDS: nystatin cream 30 gm 1 APPLIC TOPICAL ×2 (11:57→18:13)
[2022-06-24] MEDS: gabapentin 400 mg Capsule 800 MG PO (14:53)
--- NOTE | 2022-06-24 16:01 | PC.NURSE ---
Attempted to call report for this patient x3. Once attempted to charge who declined report.
[2022-06-24 17:29] LABS: Glucose Point of Care 146 mg/dL (70-110)
[2022-06-24 20:16] LABS: Glucose Point of Care 152 mg/dL (70-110)
[2022-06-24] MEDS: carbidopa-levodopa 25-100mg Tablet 1 EACH PO (20:31)
--- NOTE | 2022-06-24 21:10 | PM.PN ---
Subjective Subjective: She is feeling better this morning. She is more awake and alert. Denies chest pain or pressure. Denies trouble breathing. Has been having redness and reports yeast infection under her pannus, breasts, and armpits. Vitals/I&O/Wt Last Vital Signs Temp 99.2 F 06/24/22 20:00 Pulse 73 06/24/22 20:00 Resp 17 06/24/22 20:00 BP 139/66 06/24/22 20:00 Pulse Ox 93 06/24/22 20:00 O2 Del Method 06/24/22 16:47 O2 Flow Rate 0 06/24/22 09:24 06/24/22 06/24/22 06/24/22 06:59 14:59 22:59 Intake Total 100 / 400 350 / 350 100 / 450 Output Total 600 / 600 Balance -500 / -200 350 / 350 100 / 450 Weight last 48 hrs Weight 117.934 kg Physical Exam Const: COMMON NORMALS: patient oriented x3 and alert GENERAL APPEARANCE: cooperative NUTRITIONAL APPEARANCE: obese ORIENTATION/CONSCIOUSNESS: Yes awake HENMT: COMMON NORMALS: oropharynx normal Neck/C-Spine: COMMON NORMALS: no JVD Resp: COMMON NORMALS: normal respiratory effort and clear to auscultation bilaterally AUSCULTATION: clear to auscultation bilaterally Cardio: COMMON NORMALS: no JVD, regular rhythm, S1 normal heart sound present, S2 normal heart sound present and No murmurs present (Cardio) RHYTHM: regular rhythm HEART SOUNDS: S1 normal heart sound present and S2 normal heart sound present GI: COMMON NORMALS: Normal to inspection, nondistended, normoactive bowel sounds present, Soft to palpation and non-tender PALPATION: Yes Soft to palpation Extremity: COMMON NORMALS: no joint enlargement and no pedal edema Neuro: COMMON NORMALS: patient oriented x3 and moves all extremities SENSORIUM/ORIENTATION: Yes alert Skin: OTHER: Erythema under pannus, extending into lower abdomen, breast, and armpits Urinary Catheter Management: [place]send: Cath Placed During This Visit: yes Reason for Continuing Indwelling Catheter: Other Urinary Catheter Date of Insertion: 06/23/22 Urinary Catheter Time of Insertion: 21:26 Data : 06/24/22 02:21 06/24/22 02:21 A&P Assessment and plan (1) Acute encephalopathy: Improved. Continue [place] antibiotics for UTI, cellulitis. Status: Acute (2) UTI (urinary tract infection): Continue empiric antibiotic. Urine culture added. Follow-up results. Status: Acute (3) Cellulitis: Appears intertrigo is complicated by cellulitis extending to the upper portion of the pannus and lower abdomen. Vancomycin added. Nystatin cream for intertrigo. Status: Acute (4) Hypoxemia: Improving with resolution of encephalopathy. Status: Acute Plan -Does have evidence of slight fluid overload, nonpitting edema, bilateral fluid overload, bilateral pleural effusions we will give 1 dose of Lasix Type 2 diabetes mellitus, A1c, low-dose sliding scale Parkinson's disease, continue home medications Attestations Medical Necessity Statement*: Continue admission for this management of UTI, cellulitis, with improvement in encephalopathy. Coding Level of Care Code Acute Visual Specialist for [facility] Diagnoses Acute encephalopathy G93.40 UTI (urinary tract infection) N39.0 Cellulitis L03.90 Hypoxemia R09.02
[2022-06-24] MEDS: magnesium sulfate premix 2 GM/50 ML PIGGYBACK IV (21:31)
[2022-06-25] VITALS (11 sets, daily range): BP systolic 145–159; BP diastolic 68–76; PULSE 61–74; RESP 17–18; TEMP 36.8–37; O2SAT 90–97
[2022-06-25 05:18] LABS: Basophils # 0.1 10^3/uL (0.0-0.1); Basophils % 0.5 %; Eosinophils # 0.1 10^3/uL (0.0-0.8); Eosinophils % 0.6 %; Hematocrit 31.1 % (37.0-47.0); Hemoglobin 9.2 g/dL (11.5-15.3); Lymphocytes # 0.5 10^3/uL (0.8-4.8); Mean Corpuscular HGB Conc 29.6 g/dL (30.0-36.0); Mean Corpuscular Volume 84.5 fl (81-99); Mean Platelet Volume 9.5 fL (7.4-10.4); Monocytes # 0.4 10^3/uL (0.2-0.9); Monocytes % 3.5 %; Neutrophils # 11.55 10^3/uL (1.8-7.7); Neutrophils % 91.1 %; Nucleated Red Blood Cells % 0 %; Platelet Count 186 10^3/cmm (130-400); Red Blood Count 3.68 10^6/uL (4.1-5.3); Red Cell Distribution Width 16.1 % (12.1-15.1); White Blood Count 12.7 10^3/uL (4.0-10.0)
[2022-06-25 05:40] LABS: Lactate (Lactic Acid level) 3.1 mmol/L (0.5-2.2)
[2022-06-25 05:47] LABS: Procalcitonin 21.29 ng/mL (0-0.5)
[2022-06-25 06:00] LABS: Alanine Aminotransferase < 5 U/L (0-33); Albumin Level 3.4 g/dL (3.5-5.2); Alkaline Phosphatase 70 U/L (35-105); Anion Gap 17.8 (5-19); Aspartate Amino Transferase 9 U/L (0-32); Blood Urea Nitrogen 23 mg/dL (8-23); C Reactive Protein 186.3 mg/L (0.0-4.9); Calcium 8.6 mg/dL (8.5-10.5); Carbon Dioxide 24 mmol/L (22-29); Chloride 97 mmol/L (98-107); Globulin 2.6 g/dL (1.3-4.6); Glomerular Filtration Rate 63.2 mL/min (90-130); Glucose 139 mg/dL (65-115); Magnesium 1.9 mg/dL (1.7-2.3); Osmolality Calculated 286 mOsm/kg (285-295); Phosphorus 3.1 mg/dL (2.5-4.5); Potassium 3.8 mmol/L (3.5-5.1); Sodium 135 mmol/L (136-145); Total Bilirubin 0.6 mg/dL (0.15-1.2)
[2022-06-25 06:23] LABS: Glucose Point of Care 164 mg/dL (70-110)
--- NOTE | 2022-06-25 07:39 | PC.NURSE ---
Notified Dr. Means 06/24/2022 at 1825 stating patient not eating. Blood sugar was [address] Means stated to hold.
[2022-06-25] MEDS: aspirin 81 mg EC Tablet PO (08:23)
[2022-06-25] MEDS: gabapentin 300 mg Capsule 600 MG PO ×2 (08:23→17:56)
[2022-06-25] MEDS: pantoprazole DR 40 mg Tablet PO (08:23)
[2022-06-25] MEDS: insulin lispro 100 unit/1 mL SUBCUT ×2 (08:23→12:22)
[2022-06-25] MEDS: citalopram 20 mg Tablet PO (08:23)
[2022-06-25] MEDS: nystatin cream 30 gm 1 APPLIC TOPICAL ×2 (08:27→17:56)
[2022-06-25 10:37] LABS: Vancomycin Trough 12.1 ug/mL (10-15)
[2022-06-25 11:05] LABS: Glucose Point of Care 317 mg/dL (70-110)
--- NOTE | 2022-06-25 11:48 | PC.CHAP ---
Pastoral Care Encounter/Spiritual Assessment Type of Contact [] Declined personnel adviser visit [] Patient/Family/Request visit [] Outpatient visit [] Follow-up visit [] Physician referral [] Code/Alert [x] Routine visit [] Staff referral [] Actively dying [] Patient sleeping [] Family support [] [] Out of room [] Palliative care [] [] Receiving care in room [] Pre-surgical visit [] Trauma [] Long length of stay [] ICU visit [] Other: Relational/Emotional Strength [x] Patient feels connected with others/family/visitors/staff [] Distress [] Loneliness/isolation [] Abandonment Spirituality of Patient [x] Person of Ledy [] Attends Temple of their Ledy [x] Believes in Prayer [] Reads Bible or Adventism materials [] There are Spiritual issues to be addressed Felt Checker Interventions [x] Prayer [x] Active listening []x Non-anxious presence [] Spiritual/emotional support [] Crisis/trauma care [] Spiritual counseling [] Bereavement support [] Provided bereavement packet [] Provided Bible/devotional materials [] Provided toy/stuffed animal, coloring book to patient or family member [] Provided Communion [] Anointing/[place] [] Salvation [x] Completed spiritual assessment [] Other: Impact on Illness or Injury [] Angry [] Fearful [] Anxious [] Often cries [] Exhaustion [] Unable to work [] Unable to attend spiritism [] Unable to walk/stand [] Unable to read [] Unable to drive [] Unable to eat/drink [] Unable to sleep [] Unable to be with family [] Patient intubated [] Other: Summary Time spent with patient 10 min
[2022-06-25] MEDS: vancomycin 1,000 MG in sodium chloride 0.9% 250 ML 250 MG IV ×2 (12:23→23:51)
[2022-06-25] MEDS: carbidopa-levodopa 25-100mg Tablet 2 EACH PO ×2 (12:23→16:05)
--- NOTE | 2022-06-25 15:00 | P.PN_ITS ---
Subjective Subjective: Today she is doing better. Continued rash with intertrigo under pannus, under breast, armpits, and erythema/cellulitis extending to the lower abdomen around pannus which is warm. She denies pain. Denies difficulty breathing or chest pain. No difficulty urinating. Vitals/I&O/Wt Last Vital Signs Temp 98.6 F 06/25/22 11:53 Pulse 67 06/25/22 11:53 Resp 18 06/25/22 11:53 BP 159/76 06/25/22 11:53 Pulse Ox 95 06/25/22 11:53 O2 Del Method 06/25/22 11:53 O2 Flow Rate 0 06/24/22 09:24 06/25/22 06/25/22 06/25/22 06:59 14:59 22:59 Intake Total 400 / 950 480 / 480 Output Total 1600 / 1600 Balance -1200 / -650 480 / 480 Weight last 48 hrs Weight 117.934 kg Physical Exam Const: COMMON NORMALS: patient oriented x3 and alert GENERAL APPEARANCE: cooperative NUTRITIONAL APPEARANCE: obese ORIENTATION/CONSCIOUSNESS: Yes awake HENMT: COMMON NORMALS: oropharynx normal Neck/C-Spine: COMMON NORMALS: no JVD Resp: COMMON NORMALS: normal respiratory effort and clear to auscultation bilaterally AUSCULTATION: clear to auscultation bilaterally Cardio: COMMON NORMALS: no JVD, regular rhythm, S1 normal heart sound present, S2 normal heart sound present and No murmurs present (Cardio) RHYTHM: regular rhythm HEART SOUNDS: S1 normal heart sound present and S2 normal heart sound present GI: COMMON NORMALS: Normal to inspection, nondistended, normoactive bowel sounds present, Soft to palpation and non-tender PALPATION: Yes Soft to palpation Extremity: COMMON NORMALS: no joint enlargement and no pedal edema Neuro: COMMON NORMALS: patient oriented x3 and moves all extremities SE NSORIUM/ORIENTATION: Yes alert Skin: OTHER: Erythema under pannus, extending into lower abdomen. Warm to touch. Erythema under breast, and armpits Urinary Catheter Management: [place]send: Cath Placed During This Visit: yes Reason for Continuing Indwelling Catheter: Other Urinary Catheter Date of Insertion: 06/23/22 Urinary Catheter Time of Insertion: 21:26 Data : 06/25/22 04:58 06/25/22 04:58 Micro: Microbiology 06/24/22 09:45 Urine Culture - Preliminary Urine Catheterized A&P Assessment and plan (1) Cellulitis: Extensive erythema of lower abdomen. Continue IV antibiotics. Lactic acid up to 3.1, but otherwise doing better, with decreased in leukocytosis to 12.7. Afebrile. Subjectively is feeling better. Appears intertrigo is complicated by cellulitis extending to the upper portion of the pannus and lower abdomen. Vancomycin. Nystatin cream for intertrigo. Status: Acute (2) UTI (urinary tract infection): Continue empiric antibiotic. Urine culture added. Follow-up results.So far without growth. Status: Acute (3) Acute encephalopathy: Resolved. Continue treatment of cellulitis, UTI. Status: Acute (4) Hypoxemia: Resolved with resolution of encephalopathy. Consider outpatient assessment for CHAPO. Status: Acute Plan Mild fluid overload: Improved after dose of Lasix. Type 2 diabetes mellitus, A1c, low-dose sliding scale Parkinson's disease, continue home medications Pending arrangements for return to SNF, will need prior authorization. Attestations Medical Necessity Statement*: Continue admission for assessment of management of cellulitis, UTI, disposition arrangements. Coding Level of Care Code Acute Microfilm Machine Operator for [facility] Fwd Diagnoses Cellulitis L03.90 UTI (urinary tract infection) N39.0 Acute encephalopathy G93.40 Hypoxemia R09.02
[2022-06-25] MEDS: gabapentin 400 mg Capsule 800 MG PO (16:03)
[2022-06-25 17:21] LABS: Glucose Point of Care 138 mg/dL (70-110)
[2022-06-25 20:34] LABS: Glucose Point of Care 194 mg/dL (70-110)
[2022-06-25] MEDS: carbidopa-levodopa 25-100mg Tablet 1 EACH PO (20:51)
[2022-06-25] MEDS: enoxaparin 40 mg/0.4 mL Syringe SUBCUT (23:52)
[2022-06-26] VITALS (7 sets, daily range): BP systolic 136–178; BP diastolic 64–80; PULSE 59–88; RESP 16–20; TEMP 36.9–37.1; O2SAT 86–95
[2022-06-26 04:27] LABS: Basophils % 0.5 %; Eosinophils # 0.4 10^3/uL (0.0-0.8); Eosinophils % 5.6 %; Hematocrit 30.6 % (37.0-47.0); Lymphocytes # 0.8 10^3/uL (0.8-4.8); Lymphocytes % 12.5 %; Mean Corpuscular HGB Conc 29.4 g/dL (30.0-36.0); Mean Corpuscular Hemoglobin 24.9 pg (28.0-34.0); Mean Corpuscular Volume 84.5 fl (81-99); Mean Platelet Volume 9.4 fL (7.4-10.4); Monocytes # 0.4 10^3/uL (0.2-0.9); Monocytes % 6.1 %; Neutrophils # 4.66 10^3/uL (1.8-7.7); Nucleated Red Blood Cells % 0 %; Platelet Count 175 10^3/cmm (130-400); Red Blood Count 3.62 10^6/uL (4.1-5.3); Red Cell Distribution Width 15.9 % (12.1-15.1); White Blood Count 6.2 10^3/uL (4.0-10.0)
[2022-06-26 04:51] LABS: Lactate (Lactic Acid level) 0.8 mmol/L (0.5-2.2)
[2022-06-26 05:18] LABS: Alanine Aminotransferase < 5 U/L (0-33); Albumin Level 2.9 g/dL (3.5-5.2); Alkaline Phosphatase 59 U/L (35-105); Anion Gap 12.8 (5-19); Aspartate Amino Transferase 7 U/L (0-32); Blood Urea Nitrogen 19 mg/dL (8-23); C Reactive Protein 124.1 mg/L (0.0-4.9); Calcium 8.2 mg/dL (8.5-10.5); Carbon Dioxide 28 mmol/L (22-29); Chloride 103 mmol/L (98-107); Globulin 2.8 g/dL (1.3-4.6); Glomerular Filtration Rate 72.4 mL/min (90-130); Glucose 121 mg/dL (65-115); Magnesium 1.8 mg/dL (1.7-2.3); Osmolality Calculated 294 mOsm/kg (285-295); Phosphorus 3.2 mg/dL (2.5-4.5); Potassium 3.8 mmol/L (3.5-5.1); Sodium 140 mmol/L (136-145); Total Bilirubin 0.4 mg/dL (0.15-1.2); Total Protein 5.7 g/dL (6.6-8.7)
[2022-06-26 06:25] LABS: Glucose Point of Care 175 mg/dL (70-110)
[2022-06-26] MEDS: insulin lispro 100 unit/1 mL SUBCUT (09:26)
[2022-06-26] MEDS: pantoprazole DR 40 mg Tablet PO (09:27)
[2022-06-26] MEDS: aspirin 81 mg EC Tablet PO (09:27)
[2022-06-26] MEDS: citalopram 20 mg Tablet PO (09:27)
[2022-06-26] MEDS: gabapentin 300 mg Capsule 600 MG PO (09:27)
[2022-06-26 10:30] LABS: SARS Covid-2 Antigen Negative (Negative)
--- NOTE | 2022-06-26 10:58 | PM.DCS ---
Discharge Providers Date of Admission: 06/24/22 00:30 Date of Discharge: June 26, 2022 Attending Provider at Admission: Andrei Puente MD Attending Provider at Discharge: Reuben Wang Primary Care Provider: Evie Aguilar MD Diagnoses at Discharge Discharge Diagnosis (1) Cellulitis: Status: Acute (2) UTI (urinary tract infection): Status: Acute (3) Acute encephalopathy: Status: Acute (4) Hypoxemia: Status: Acute Reason for Visit Reason for Visit: FEVER/ WEAKNESS/ VOMITING Hospital Course Hospital Course Pleasant 62-year-old lady [facility] resident with history of Parkinson's disease, DM2, diabetic neuropathy, HTN, morbid obesity, was admitted for assessment management due to altered mental status, found to have urinary tract infection and cellulitis of lower abdomen, with rashes noted under the pannus, as well as under her breasts and armpits. He was started empirically on antibiotic treatment with Zosyn, vancomycin, nystatin cream was added for intertriginous areas. Urine culture eventually did not grow an organism. Cellulitis covers lower portion of the abdomen extending around from beneath the pannus. It is showing improvement. Complete antibiotic course with Bactrim. Continue nystatin cream. Please keep area as dry. Initially with hypoxia as well, required initially 4 L nasal cannula support, but trended down, and with resolution of encephalopathy hypoxia improved as well. Wean down off oxygen. Saturating in low 90s on room air. Please reassess oxygen saturation. Rapid COVID-[address] of the chest showed no PE, small left and moderate right pleural effusion. Dependent atelectasis in both lungs. Please follow-up imaging to reassess for resolution. Nonspecific prominent mediastinal lymph nodes. Cardiomegaly. She did not have orthopnea or lower extremity edema, however, there is some edema at the lower end of the pannus, some weeping, with some fluid overload she is given a course of Lasix at discharge. CT abdomen pelvis showed retroperitoneal lipomas, bilateral small volume pleural effusions. Mild anasarca. Physical Exam Const: COMMON NORMALS: patient oriented x3 and alert GENERAL APPEARANCE: cooperative NUTRITIONAL APPEARANCE: obese ORIENTATION/CONSCIOUSNESS: Yes awake HENMT: COMMON NORMALS: oropharynx normal Neck/C-Spine: COMMON NORMALS: no JVD Resp: COMMON NORMALS: normal respiratory effort and clear to auscultation bilaterally AUSCULTATION: clear to auscultation bilaterally Cardio: COMMON NORMALS: no JVD, regular rhythm, S1 normal heart sound present, S2 normal heart sound present and No murmurs present (Cardio) RHYTHM: regular rhythm HEART SOUNDS: S1 normal heart sound present and S2 normal heart sound present GI: COMMON NORMALS: Normal to inspection, nondistended, normoactive bowel sounds present, Soft to palpation and non-tender PALPATION: Yes Soft to palpation OTHER: Large pannus Extremity: COMMON NORMALS: no joint enlargement and no pedal edema Neuro: COMMON NORMALS: patient oriented x3 and moves all extremities SENSORIUM/ORIENTATION: Yes alert Skin: OTHER: Erythema under pannus, extending into lower abdomen. Warm to touch. Erythema under breast, and armpits Urinary Catheter Management: Townsend: Cath Placed During This Visit: yes Reason for Continuing Indwelling Catheter: Other Urinary Catheter Date of Insertion: 06/23/22 Urinary Catheter Time of Insertion: 21:26 Discharge Data Studies Completed and Pending Completed Studies During Hospitalization Category Date Time Status CT abdomen pelvis w con* [id number] Stat Cat Scan 06/23/22 15:47 Completed CTA chest [CT angio chest PE protcl [id number]] Stat Cat Scan 06/23/22 19:47 Completed XR chest 1V portable [id number] Stat Exams 06/23/22 15:17 Completed Pending at discharge Category Date Time Status Basic Metabolic Panel AM LABS Lab 06/27/22 04:00 Ordered Basic Metabolic Panel AM LABS Lab 06/28/22 04:00 Ordered Basic Metabolic Panel AM LABS Lab 06/29/22 04:00 Ordered Radiology Impressions Chest X-Ray 06/23/22 15:17 IMPRESSION: No acute findings. Abdomen/Pelvis CT 06/23/22 15:47 IMPRESSION: 1. No acute intra-abdominal findings. 2. Retroperitoneal lipomatosis which is likely a contributing factor to the clinical findings. 3. Bilateral small volume pleural effusions. Mild anasarca. COMMENTS: Consistent with the [employer]'s Incidental Findings Committee white paper (J Am Letty Radiol 2018): Any incidental renal lesion less than 1 cm or classified as too small to characterize, or any incidental cystic renal lesion characterized as simple-appearing, is likely benign. No follow-up imaging is recommended for these lesions per consensus recommendations based on imaging criteria. Chest CTA 06/23/22 19:47 IMPRESSION: 1. No pulmonary embolism identified. 2. Bilateral pleural effusions. 3. Dependent atelectasis in both lungs. Cannot exclude pneumonitis. 4. Prominent mediastinal and hilar lymph nodes, nonspecific. 5. Cardiomegaly. Laboratory Results WBC 6.2 10^3/uL (4.0-10.0) 06/26/22 04:18 RBC 3.62 10^6/uL (4.1-5.3) L 06/26/22 04:18 Hgb 9.0 g/dL (11.5-15.3) L 06/26/22 04:18 Hct 30.6 % (37.0-47.0) L 06/26/22 04:18 MCV 84.5 fl (81-99) 06/26/22 04:18 MCH 24.9 pg (28.0-34.0) L 06/26/22 04:18 MCHC 29.4 g/dL (30.0-36.0) L 06/26/22 04:18 RDW 15.9 % (12.1-15.1) H 06/26/22 04:18 Plt Count 175 10^3/cmm (130-400) 06/26/22 04:18 MPV 9.4 fL (7.4-10.4) 06/26/22 04:18 Neut % (Auto) 75.0 % 06/26/22 04:18 Lymph % (Auto) 12.5 % 06/26/22 04:18 [place] % (Auto) 6.1 % 06/26/22 04:18 Eos % (Auto) 5.6 % 06/26/22 04:18 Baso % (Auto) 0.5 % 06/26/22 04:18 Neut # (Auto) 4.66 10^3/uL (1.8-7.7) 06/26/22 04:18 Lymph # (Auto) 0.8 10^3/uL (0.8-4.8) 06/26/22 04:18 [place] # (Auto) 0.4 10^3/uL (0.2-0.9) 06/26/22 04:18 Eos # (Auto) 0.4 10^3/uL (0.0-0.8) 06/26/22 04:18 Baso # (Auto) 0.0 10^3/uL (0.0-0.1) 06/26/22 04:18 Nucleated RBC % (auto) 0 % 06/26/22 04:18 Nucleated RBCs # 0.0 /100WBC 06/26/22 04:18 D-Dimer 2.21 ug/mIFEU (0-0.59) H 06/23/22 14:44 Specimen Type Arterial 06/23/22 16:00 Sample Site Radial, right 06/23/22 16:00 ABG pH 7.42 (7.35-7.45) 06/23/22 16:00 ABG pCO2 46.7 mmHg (35-45) H 06/23/22 16:00 ABG pO2 94.6 mmHg (80.0-100.0) 06/23/22 16:00 ABG HCO3 30.4 mmol/L (22-26) H 06/23/22 16:00 ABG O2 Saturation 98.5 06/23/22 16:00 ABG Base Excess 5.2 mmol/L (-2.0-2.0) H 06/23/22 16:00 Martin Test Pos 06/23/22 16:00 A-a O2 Gradient 13.4 mmHg (5-10) H 06/23/22 16:00 Hematocrit 32.8 % (37-47) L 06/23/22 16:00 Hgb O2 Saturation 96.5 % (95-100) 06/23/22 16:00 Carboxyhemoglobin 1.8 %THgb (0.4-20.1) 06/23/22 16:00 Methemoglobin 0.2 % (0.4-1.5) L 06/23/22 16:00 Total Hemoglobin 10.7 g/dL (12-16) L 06/23/22 16:00 Sodium 142.0 mmol/L (131-143) 06/23/22 16:00 Potassium 3.3 mmol/L (3.5-5.0) L 06/23/22 16:00 Glucose 103.0 mg/dL (70-115) 06/23/22 16:00 Ionized Calcium 1.2 mmol/L (1.1-1.4) 06/23/22 16:00 O2 Delivery Device Nc 06/23/22 16:00 O2 Liters/Min 4.0 % 06/23/22 16:00 FiO2 36.0 % 06/23/22 16:00 Salesforce Trainer ID Ed 06/23/22 16:00 Sodium 140 mmol/L (136-145) 06/26/22 04:18 Potassium 3.8 mmol/L (3.5-5.1) 06/26/22 04:18 Chloride 103 mmol/L (98-107) 06/26/22 04:18 Carbon Dioxide 28 mmol/L (22-29) 06/26/22 04:18 Anion Gap 12.8 (5-19) 06/26/22 04:18 BUN 19 mg/dL (8-23) 06/26/22 04:18 Creatinine 0.8 mg/dL (0.5-0.9) 06/26/22 04:18 GFR Calculation 72.4 mL/min (90-130) L 06/26/22 04:18 Glucose 121 mg/dL (65-115) H 06/26/22 04:18 POC Glucose 175 mg/dL (70-110) H 06/26/22 06:15 Estimat Average Glucose 120 06/23/22 14:40 Hemoglobin A1c 5.8 % (4.0-6.0) 06/23/22 14:40 Calculated Osmolality 294 mOsm/kg (285-295) 06/26/22 04:18 Lactate 0.8 mmol/L (0.5-2.2) 06/26/22 04:18 Calcium 8.2 mg/dL (8.5-10.5) L 06/26/22 04:18 Phosphorus 3.2 mg/dL (2.5-4.5) 06/26/22 04:18 Magnesium 1.8 mg/dL (1.7-2.3) 06/26/22 04:18 Total Bilirubin 0.4 mg/dL (0.15-1.2) 06/26/22 04:18 AST 7 U/L (0-32) 06/26/22 04:18 ALT < 5 U/L (0-33) 06/26/22 04:18 Alkaline Phosphatase 59 U/L (35-105) 06/26/22 04:18 Ammonia 24 umol/L (11-51) 06/24/22 02:21 Troponin T Baseline 19 ng/L (0-10) H 06/23/22 14:44 Troponin T 120 Minute 21.11 ng/L (0-10) H 06/23/22 17:50 Delta Troponin T 2.11 ABS# (0-10) 06/23/22 17:50 C-Reactive Protein 124.1 mg/L (0.0-4.9) H 06/26/22 04:18 NT-Pro-B Natriuret Pep 658 pg/mL (0-125) H 06/23/22 14:44 Total Protein 5.7 g/dL (6.6-8.7) L 06/26/22 04:18 Albumin 2.9 g/dL (3.5-5.2) L 06/26/22 04:18 Globulin 2.8 g/dL (1.3-4.6) 06/26/22 04:18 Triglycerides 52 mg/dL (0-150) 06/24/22 02:21 Triglycerides Cancelled 06/24/22 02:21 Cholesterol 125 mg/dL (0-200) 06/24/22 02:21 Cholesterol Cancelled 06/24/22 02:21 LDL Cholesterol, Calc 57 mg/dL (50-129) 06/24/22 02:21 LDL Cholesterol, Calc Cancelled 06/24/22 02:21 HDL Cholesterol 58 mg/dL (60-100) L 06/24/22 02:21 HDL Cholesterol Cancelled 06/24/22 02:21 LDL/HDL Ratio 0.98 RATIO (0.00-3.22) 06/24/22 02:21 LDL/HDL Ratio Cancelled 06/24/22 02:21 Cholesterol/HDL Ratio 2.16 mg/dL (0.0-4.40) 06/24/22 02:21 Cholesterol/HDL Ratio Cancelled 06/24/22 02:21 Lipase 25 U/L (13-60) 06/23/22 14:44 Procalcitonin 11.10 ng/mL (0-0.5) H 06/26/22 04:18 TSH 2.00 uIU/mL (0.27-4.20) 06/24/22 02:21 TSH Cancelled 06/24/22 02:21 Urine Color Yellow (Yellow) 06/23/22 21:20 Urine Appearance Clear (CLEAR) 06/23/22 21:20 Urine pH 8 (5-7) H 06/23/22 21:20 Ur Specific [place] 1.005 (1.005-1.030) 06/23/22 21:20 Urine Protein Trace (Negative) 06/23/22 21:20 Urine Glucose (UA) Norm (Normal) 06/23/22 21:20 Urine Ketones Negative (Negative) 06/23/22 21:20 Urine Blood Neg (Negative) 06/23/22 21:20 Urine Nitrate Positive (Negative) H 06/23/22 21:20 Urine Bilirubin Neg (Negative) 06/23/22 21:20 Prot Sulfosalicylic Acd Positive (Negative) 06/23/22 21:20 Urine Urobilinogen Norm mg/dL (Negative) 06/23/22 21:20 Ur Leukocyte Esterase Trace (Negative) H 06/23/22 21:20 Urine RBC 5-10 /hpf (0-2) H 06/23/22 21:20 Urine WBC 10-15 /hpf (0-5) H 06/23/22 21:20 Ur Squamous Epith Cells 15-25 /hpf (0-5) H 06/23/22 21:20 Amorphous Sediment Not Reportable 06/23/22 21:20 Urine Bacteria 3+ /hpf (NONE) H 06/23/22 21:20 Vancomycin Trough 12.1 ug/mL (10-15) 06/25/22 09:54 Coronavirus 229E (PCR) Not detected (NOT DETECT) 06/23/22 15:32 SARS-CoV-2 (PCR) Not detected (NOT DETECT) 06/23/22 15:32 SARS-CoV-2 Ag (Rapid) Negative (Negative) 06/26/22 09:33 Vitals Last Vital Signs Temp 98.4 F 06/26/22 08:00 Pulse 60 06/26/22 08:00 Resp 16 06/26/22 08:00 BP 178/71 06/26/22 08:00 Pulse Ox 91 06/26/22 08:00 O2 Del Method 06/26/22 08:00 O2 Flow Rate 0 06/24/22 09:24 Discharge Plan Discharge Patient Disposition: Xfer SNF Condition: Stable Prescriptions: New nystatin 100,000 unit/gram Cream 1 applic topical BID 14 Days Qty: 30 0RF Rx Instructions: Under pannus, breasts, armpits Bactrim DS 800-160 mg tablet 1 tab PO BID 7 Days Qty: 14 0RF furosemide 20 mg tablet 20 mg PO DAILY Qty: 30 0RF Continued gabapentin 800 mg tablet 800 mg PO DAILY@13 aspirin [Adult Low Dose Aspirin] 81 mg tablet,delayed release (DR/EC) 81 mg PO DAILY@08 Trulicity 1.5 mg/0.5 mL pen injector 1.5 mg SUBCUT DIRECTED Rx Instructions: on thursday hydrocodone-acetaminophen 5-325 mg tablet 1 tab PO Q6H PRN (Reason: pain) 7 Days Qty: 30 0RF bisacodyl [Dulcolax (bisacodyl)] 5 mg tablet,delayed release (DR/EC) 10 mg PO DAILY PRN (Reason: Constipation) Rx Instructions: give if no results from mom Fleet Enema 19-7 gram/118 mL enema 118 ml [place] DAILY PRN (Reason: Constipation) Rx Instructions: give if no results from mom and dulcolax magnesium hydroxide [Milk of Magnesia] 400 mg/5 mL suspension 30 ml PO DAILY PRN (Reason: Constipation) Rx Instructions: if no bm in 3 days go to dulcolax orders pantoprazole 40 mg tablet,delayed release (DR/EC) 40 mg PO DAILY PRN (Reason: gerd) terbinafine HCl 250 mg tablet 250 mg PO DAILY@08 Rx Instructions: end date 07/22/22 Tresiba U-100 Insulin 100 unit/mL solution 18 unit SUBCUT BEDTIME@20 ammonium lactate 12 % cream 1 applic topical DAILY Qty: 385 6RF Rx Instructions: Apply neck down daily miconazole nitrate 2 % cream 1 applic topical BID 42 Days Qty: 42.5 2RF Rx Instructions: Apply to affected areas in underarms, abdomen, and groin twice daily for 6 weeks (end date 07/29/22) gabapentin 600 mg tablet 600 mg PO BID Qty: 60 10RF carbidopa-levodopa [Sinemet] 25-100 mg tablet 1 tab PO .COMPLEX Qty: 150 11RF Rx Instructions: Take 2 tablets at 10AM, 2 tablets at 14:00, and 1 tablet at 20:00 cholecalciferol (vitamin D3) [Vitamin D3] 125 mcg (5,000 unit) Tablet 125 mcg PO DAILY@08 Celexa 20 mg Tablet 20 mg PO DAILY@08 Dulcolax (bisacodyl) 10 mg Suppository 10 mg [place] DAILY PRN (Reason: Constipation) Rx Instructions: if no results from mom Humalog U-100 Insulin 100 unit/mL Solution See Rx Instructions .ROUTE .COMPLEX Rx Instructions: 5 units with meals and sliding scale if blood sugar is less than 70 call 150-200=0 units 201-250=2 units 251-300=4 units 301-350=6 units 351-400=8 units if blood sugar is greater than 400 call Tylenol 325 mg Tablet 650 mg PO Q6H PRN (Reason: Pain) ketoconazole 2 % shampoo 1 applic topical .ON MON AND TH Rx Instructions: Lather into scalp 2-3 times weekly. Allow to sit on scalp for 5 minutes before rinsing. Discharge Orders: Discharge Order (Routine); Ordered 06/26/22 Ordered By: Reuben Wang Referrals: [facility] [Outside] Evie Aguilar MD [Primary Care Provider] - 4-7 days Discharge Diet: Cardiac and Diabetic Discharge Activity: Increase activity as tolerated Patient Instructions: Sulfamethoxazole/Trimethoprim (By mouth), Urinary Tract Infection in Women (GEN), Cellulitis (GEN) Activity Restrictions/Additional Instructions: Complete antibiotic course for cellulitis, UTI. Continue nystatin cream for under pannus and breast, armpits. Keep under pannus area dry. Consider referral for sleep study to assess for sleep apnea. Consider weight loss options. Discharge Attestations Time Spent in Discharge Care*: greater than 30 min Quality Metrics Clinical Quality Measures [ No reported AMI, CVA or VTE this stay] Coding Level of Care Code Acute [facility] note Diagnoses Cellulitis L03.90 UTI (urinary tract infection) N39.0 Acute encephalopathy G93.40 Hypoxemia R09.02
[2022-06-26] MEDS: vancomycin 1,000 MG in sodium chloride 0.9% 250 ML 250 MG IV (12:29)
[2022-06-26] MEDS: gabapentin 400 mg Capsule 800 MG PO (12:32)
[2022-06-26] MEDS: carbidopa-levodopa 25-100mg Tablet 2 EACH PO (12:32)
[2022-06-26 13:07] LABS: Glucose Point of Care 244 mg/dL (70-110)
== END 2022-06-26 16:21 | disposition skilled nursing facility (03) | DRG 689 ==
LOC: ER 19:24 → ER IP 22:11 → MEDSURG 06-24 14:41
PROVIDERS: Admitting Provider Family Medicine; Emergency Provider Emergency Medicine; PCP Internal Medicine; Visit Provider Internal Medicine
DX: N39.0 Urinary tract infection, site not specified (principal); G93.41 Metabolic encephalopathy; Z68.42 Body mass index [BMI] 45.0-49.9, adult; L03.311 Cellulitis of abdominal wall; J90 Pleural effusion, not elsewhere classified; J98.11 Atelectasis; G20 Parkinson's disease; E11.42 Type 2 diabetes mellitus with diabetic polyneuropathy; I10 Essential (primary) hypertension; E66.01 Morbid (severe) obesity due to excess calories; Z99.81 Dependence on supplemental oxygen; E87.70 Fluid overload, unspecified; L30.4 Erythema intertrigo; R59.0 Localized enlarged lymph nodes; I51.7 Cardiomegaly; Z79.82 Long term (current) use of aspirin; Z79.899 Other long term (current) drug therapy; Z79.4 Long term (current) use of insulin
CPT/HCPCS: 36415; 36416; 36600; 51702; 71045; 71275; 74177; 80051; 80053; 80061; 80202; 81001; 82140; 82330; 82805; 82962; 83036; 83605; 83690; 83735; 83880; 84100; 84145; 84443; 84484; 85025; 85378; 86140; 87086; 87426; 87635; 93005; 94664; 96365; 96367; 96372; 97110; 97165; 97535; 99285; J0692; J0743; J1650; J1815; J1940; J3370; J3475; J7050; Q9967

== ENCOUNTER 2022-08-17 17:27 | Inpatient (IN) | payer MEDICARE, MEDICAID, SELFPAY ==
[2022-08-17 17:28] VITALS: BP 185/120; PULSE 85; RESP 24; TEMP 38.2; O2SAT 96
--- NOTE | 2022-08-17 17:39 | ED_ITS ---
HPI - General Adult General: Stated complaint: AMS Time Seen by Provider: 08/17/22 17:33 History of Present Illness: 62-year-old female presenting today with erythema to her lower abdomen. Patient with limited history available. According to fpc began to have erythema spreading from her lower abdomen to her umbilicus starting over the last 24 hours. Notes significant worsening. As well as worsening of her diabetes. Noting difficulty getting her blood sugar under control. Review of Systems General: Reports: 10 or more systems reviewed and unremarkable except in HPI and below PFSH ED PFSH: Medical History Diabetes mellitus Diabetic neuropathy History of cataract Hyperlipidemia Hypertension Parkinson's disease Surgical History History of hand surgery Family History Other Cancer Diabetes Social History Smoking and tobacco status: never smoked Alcohol intake: never History of recent travel: No Physical Exam Const: COMMON NORMALS: no acute distress, patient oriented x3 and alert GENERAL APPEARANCE: cooperative ORIENTATION/CONSCIOUSNESS: Yes awake, Yes oriented to person, Yes oriented to place and Yes oriented to time HENMT: COMMON NORMALS: normocephalic, atraumatic, external ears normal, Normal external nose present and moist oral mucous membranes HEAD & SCALP: normal to inspection, normocephalic and atraumatic NOSE: Normal external nose present GENERAL EAR: hearing grossly impaired EXTERNAL EAR: Yes external ears normal Eye: COMMON NORMALS: Equal, round and reactive pupils present, EOMs intact bilaterally, conjunctivae normal and no scleral icterus GENERAL EYE: appearance normal, both eyes and all related structures EYELID: eyelids normal CONJUNCTIVA: Yes conjunctivae normal SCLERA: sclerae normal PUPIL: Yes Equal, round and reactive pupils present Neck/C-Spine: COMMON NORMALS: full ROM, supple and no JVD GENERAL: Yes normal visual inspection Lymph: LYMPHATIC: no lymphadenopathy noted and no lymphedema noted Chest: COMMONS NORMALS: normal inspection of the chest Resp: COMMON NORMALS: normal respiratory effort, No retractions and No use of accessory muscles Cardio: COMMON NORMALS: no JVD, regular rate and regular rhythm RATE: regular rate RHYTHM: regular rhythm GI: COMMON NORMALS: Normal to inspection, nondistended, normoactive bowel sounds present : COMMON NORMALS: Yes no CVA tenderness BLADDER/KIDNEY EXAM: Yes no CVA tenderness Back/Pelvis: COMMON NORMALS: no CVA tenderness and thoracic and lumbar spine normal to inspection Extremity: COMMON NORMALS: normal to inspection, full ROM and capillary refill normal GENERAL: Yes normal exam except as noted Neuro: COMMON NORMALS: patient oriented x3, CN's II-XII intact bilaterally, m oves all extremities, no focal motor deficits, no sensory deficits noted and gait normal SENSORIUM/ORIENTATION: Yes alert, Yes oriented to person, Yes oriented to place and Yes oriented to time Psych: COMMON NORMALS: mental status grossly normal, Normal thought process present, cooperative and normal affect THOUGHT PROCESS: Normal thought process present Skin: COMMON NORMALS: no wounds; negative for no rashes or lesions noted (Significant spreading erythema to the lower abdomen, tender to palpation, h) GENERAL SKIN EXAM: rashes and/or lesions noted (Significant spreading erythema to the lower abdomen, tender to palpation, h) [facility] General Adult Medical Decision Making Patient is a 62-year-old female presenting today with significant spreading infection from the groin to the umbilicus. Exam is suggestive of significant cellulitis. We will start patient on vancomycin. Blood cultures drawn. Lactic ordered. Bolus normal saline given. Patient signed out pending ultimate admission. Discharge Plan Discharge Patient Disposition: Admitted As Inpatient Clinical Impression: Cellulitis Condition: Stable Prescriptions: No Action gabapentin 800 mg tablet 800 mg PO DAILY@13 aspirin [Adult Low Dose Aspirin] 81 mg tablet,delayed release (DR/EC) 81 mg PO DAILY@08 Trulicity 1.5 mg/0.5 mL pen injector 1.5 mg SUBCUT DIRECTED Rx Instructions: on thursday hydrocodone-acetaminophen 5-325 mg tablet 1 tab PO Q6H PRN (Reason: pain) 7 Days Qty: 30 0RF bisacodyl [Dulcolax (bisacodyl)] 5 mg tablet,delayed release (DR/EC) 10 mg PO DAILY PRN (Reason: Constipation) Rx Instructions: give if no results from mom Fleet Enema 19-7 gram/118 mL enema 118 ml [place] DAILY PRN (Reason: Constipation) Rx Instructions: give if no results from mom and dulcolax magnesium hydroxide [Milk of Magnesia] 400 mg/5 mL suspension 30 ml PO DAILY PRN (Reason: Constipation) Rx Instructions: if no bm in 3 days go to dulcolax orders pantoprazole 40 mg tablet,delayed release (DR/EC) 40 mg PO DAILY PRN (Reason: gerd) terbinafine HCl 250 mg tablet 250 mg PO DAILY@08 Rx Instructions: end date 07/22/22 Tresiba U-100 Insulin 100 unit/mL solution 18 unit SUBCUT BEDTIME@20 ammonium lactate 12 % cream 1 applic topical DAILY Qty: 385 6RF Rx Instructions: Apply neck down daily miconazole nitrate 2 % cream 1 applic topical BID 42 Days Qty: 42.5 2RF Rx Instructions: Apply to affected areas in underarms, abdomen, and groin twice daily for 6 weeks (end date 07/29/22) gabapentin 600 mg tablet 600 mg PO BID Qty: 60 10RF carbidopa-levodopa [Sinemet] 25-100 mg tablet 1 tab PO .COMPLEX Qty: 150 11RF Rx Instructions: Take 2 tablets at 10AM, 2 tablets at 14:00, and 1 tablet at 20:00 cholecalciferol (vitamin D3) [Vitamin D3] 125 mcg (5,000 unit) Tablet 125 mcg PO DAILY@08 Celexa 20 mg Tablet 20 mg PO DAILY@08 Dulcolax (bisacodyl) 10 mg Suppository 10 mg [place] DAILY PRN (Reason: Constipation) Rx Instructions: if no results from mom Humalog U-100 Insulin 100 unit/mL Solution See Rx Instructions .ROUTE .COMPLEX Rx Instructions: 5 units with meals and sliding scale if blood sugar is less than 70 call 150-200=0 units 201-250=2 units 251-300=4 units 301-350=6 units 351-400=8 units if blood sugar is greater than 400 call Tylenol 325 mg Tablet 650 mg PO Q6H PRN (Reason: Pain) ketoconazole 2 % shampoo 1 applic topical .ON MON AND THURS Rx Instructions: Lather into scalp 2-3 times weekly. Allow to sit on scalp for 5 minutes before rinsing. furosemide 20 mg tablet 20 mg PO DAILY Qty: 30 0RF Referrals: Evie Aguilar MD [Primary Care Provider] - Coding Level of Care Code ED Pharmaceutical Scientist for Chg [facility]
[2022-08-17 18:09] LABS: Basophils % 0.2 %; Hematocrit 39.3 % (37.0-47.0); Hemoglobin 12.6 g/dL (11.5-15.3); Lymphocytes # 0.5 10^3/uL (0.8-4.8); Mean Corpuscular HGB Conc 32.1 g/dL (30.0-36.0); Mean Corpuscular Hemoglobin 25.9 pg (28.0-34.0); Mean Corpuscular Volume 80.7 fl (81-99); Mean Platelet Volume 9.5 fL (7.4-10.4); Monocytes # 0.3 10^3/uL (0.2-0.9); Monocytes % 2.3 %; Neutrophils # 13.86 10^3/uL (1.8-7.7); Neutrophils % 93.6 %; Nucleated Red Blood Cells % 0 %; Platelet Count 131 10^3/cmm (130-400); Red Blood Count 4.87 10^6/uL (4.1-5.3); White Blood Count 14.8 10^3/uL (4.0-10.0)
[2022-08-17 18:31] LABS: Alanine Aminotransferase 6 U/L (0-33); Albumin Level 3.3 g/dL (3.5-5.2); Alkaline Phosphatase 85 U/L (35-105); Anion Gap 14.8 (5-19); Aspartate Amino Transferase 12 U/L (0-32); Blood Urea Nitrogen 37 mg/dL (8-23); Calcium 8.7 mg/dL (8.5-10.5); Carbon Dioxide 30 mmol/L (22-29); Chloride 93 mmol/L (98-107); Globulin 3.9 g/dL (1.3-4.6); Glomerular Filtration Rate 45.4 mL/min (90-130); Glucose 273 mg/dL (65-115); Osmolality Calculated 296 mOsm/kg (285-295); Potassium 3.8 mmol/L (3.5-5.1); Sodium 134 mmol/L (136-145); Total Bilirubin 0.4 mg/dL (0.15-1.2); Total Protein 7.2 g/dL (6.6-8.7)
[2022-08-17 18:32] LABS: Lactate (Lactic Acid level) 3.3 mmol/L (0.5-2.2)
[2022-08-17] MEDS: vancomycin 1,500 MG/300 ML PIGGYBACK 200 MG IV (18:44)
[2022-08-17 19:55] VITALS: BP 156/70; PULSE 87; RESP 27; O2SAT 96
[2022-08-17 20:14] VITALS: BP 165/68; PULSE 87; RESP 24; O2SAT 98
[2022-08-17 21:00] VITALS: BP 158/62; PULSE 88; RESP 28; O2SAT 94
[2022-08-17 21:09] VITALS: BP 158/62; PULSE 88; RESP 28; O2SAT 94
[2022-08-17 21:46] LABS: Glucose Point of Care 197 mg/dL (70-110)
[2022-08-17 21:51] VITALS: BMI 44.4
[2022-08-17 21:54] VITALS: BP 136/66; PULSE 89; RESP 17; TEMP 38.2; O2SAT 92
--- NOTE | 2022-08-17 22:44 | PM.HP ---
Providers/Chief Complaint Admitting Physician: Linda Caceres MD Primary Care Provider: Evie Aguilar MD Chief Complaint: AMS History of Present Illness Miguelina Goncalves is a 62 year old female [facility] resident with history of Parkinson's disease, DM2, diabetic neuropathy, HTN, morbid obesity, sent from [place] with 2-3 day history of worsening lower abdominal erythema and swelling,fever, not improved with oral antibiotics and developing confusion. Patient is currently confused, unable to participate in history beyond telling me that she has discomfort in her lower abdomen. Review of past admissions shows similar presentation in 06/2022 when she was treated for UTI and abdominal wall cellulitis. She has bene evaluated by dermatology and diagnosed with erythrasma and intertrigo in the past. In the ER noted to have fever up to 102F, leukocytosis, 02 supplementation at 2lpm. Review of Systems General: Reports: 10 or more systems reviewed and unremarkable except in HPI and below Const: Denies: fever(s), chills or body aches Eyes: Denies: change in vision, blurry vision or photophobia ENMT: Reports: hoarseness; Denies: throat pain, enlarged tonsils, odynophagia or nasal congestion Card: Denies: chest pain, palpitations, irregular heart rhythm, edema, swelling of feet/ankles, lightheadedness, pre-syncope, dyspnea on exertion or orthopnea Resp: Denies: dyspnea, productive cough, non-productive cough, wheezing, stridor, pain on inspiration, change in phlegm color, hemoptysis or chest congestion GI: Denies: abdominal pain, nausea, vomiting, hematemesis, coffee ground emesis, dysphagia, heartburn, diarrhea, constipation, GI cramping, change in stool character, hematochezia or melena : Denies: flank pain, difficulty voiding, dysuria, urinary frequency, urinary urgency, urinary hesitancy or hematuria Musc: Denies: neck pain, back pain, extremity pain, joint swelling, joint warmth or deformity Neuro: Denies: headache(s), numbness in extremities, weakness in extremities, sensory changes, difficulty walking, frequent falls, dizziness, vertigo, behavioral changes, Slurred speech present or seizure-like activity Psych: Denies: anxiety, depression, suicidal ideation or homicidal ideation Endo: Denies: polyuria, polydipsia, tired all the time, cold intolerance or hot flashes Gomez/Lymph: Denies: easy bruising or easy bleeding Medications/Allergies Home Medications Medication Instructions Recorded Confirmed Last Taken Type aspirin 81 mg tablet,delayed 81 mg PO DAILY@08 01/31/20 08/17/22 08/17/22 08:00 History release (Adult Low Dose Aspirin) gabapentin 800 mg tablet 800 mg PO DAILY@13 01/31/20 08/17/22 08/17/22 12:00 History gabapentin 600 mg tablet 600 mg PO BID #60 tabs 11/06/21 08/17/22 08/17/22 08:00 Rx carbidopa 25 mg-levodopa 100 mg 1 tab PO .COMPLEX #150 tabs 11/13/21 08/17/22 08/17/22 12:00 Rx tablet (Sinemet) dulaglutide 1.5 mg/0.5 mL 1.5 mg SUBCUT DIRECTED 01/21/22 08/17/22 08/15/22 08:00 History subcutaneous pen injector (Trulicity) cholecalciferol (vitamin D3) 125 125 mcg PO DAILY@08 01/22/22 08/17/22 08/17/22 08:00 History mcg (5,000 unit) tablet (Vitamin D3) ammonium lactate 12 % topical cream 1 applic topical DAILY #385 grams 06/17/22 08/17/22 08/17/22 13:00 Rx bisacodyl 5 mg tablet,delayed 10 mg PO DAILY PRN Constipation 06/17/22 06/23/22 Unknown History release (Dulcolax (bisacodyl)) insulin degludec 100 unit/mL 18 unit SUBCUT BEDTIME@20 06/17/22 08/17/22 08/16/22 20:50 History subcutaneous solution (Tresiba U-100 Insulin) magnesium hydroxide 400 mg/5 mL 30 ml PO DAILY PRN Constipation 06/17/22 06/23/22 Unknown History oral suspension (Milk of Magnesia) miconazole nitrate 2 % topical 1 applic topical BID 6 weeks #42.5 06/17/22 06/23/22 Unknown Rx cream grams pantoprazole 40 mg tablet,delayed 40 mg PO DAILY PRN gerd 06/17/22 06/23/22 Unknown History release sodium phosphates 19 gram-7 118 ml MS DAILY PRN Constipation 06/17/22 06/23/22 Unknown History gram/118 mL enema (Fleet Enema) terbinafine HCl 250 mg tablet 250 mg PO DAILY@08 06/17/22 06/23/22 06/23/22 History acetaminophen 325 mg tablet 650 mg PO Q6H PRN Pain 06/23/22 08/17/22 08/16/22 08:00 History (Tylenol) bisacodyl 10 mg rectal suppository 10 mg MS DAILY PRN Constipation 06/23/22 08/17/22 Unknown History (Dulcolax (bisacodyl)) citalopram 20 mg tablet (Celexa) 15 mg PO DAILY@08 06/23/22 08/17/22 08/17/22 07:00 History insulin lispro 100 unit/mL See Rx Instructions .Route .COMPLEX 06/23/22 08/17/22 08/17/22 16:30 History subcutaneous solution (Humalog U-100 Insulin) ketoconazole 2 % shampoo 1 applic topical .ON THU AND 06/23/22 08/17/22 08/14/22 14:00 History furosemide 20 mg tablet 20 mg PO DAILY #30 tabs 06/26/22 08/17/22 08/17/22 08:00 Rx hydrocodone 5 mg-acetaminophen 325 1 tab PO BEDTIME PRN pain 08/17/22 08/17/22 08/12/22 07:00 History mg tablet Allergies Allergy/AdvReac Type Severity Reaction Status Date / Time ampicillin Allergy Unknown Rash and Verified 06/23/22 16:57 Itching PFSH Acute PFSH: Medical History Diabetes mellitus Diabetic neuropathy History of cataract Hyperlipidemia Hypertension Parkinson's disease Surgical History History of hand surgery Family History Other Cancer Diabetes Social History Smoking and tobacco status: never smoked Alcohol intake: never History of recent travel: No Vitals/I&O/Wt Last Vital Signs Temp 100.7 F H 08/17/22 21:54 Pulse 89 08/17/22 21:54 Resp 17 08/17/22 21:54 BP 136/66 08/17/22 21:54 Pulse Ox 92 08/17/22 21:54 O2 Del Method 08/17/22 21:33 O2 Flow Rate 2 08/17/22 17:28 08/17/22 08/17/22 08/17/22 06:59 14:59 22:59 Intake Total 300 / 300 Balance 300 / 300 Weight last 48 hrs Weight 110.087 kg Physical Exam Narrative: General: No acute distress, AO x2 HEENT: PERRLA, pupils bilaterally equal and reactive, pallors not present Chest: Normal vesicular breath sounds, no added sounds, equal good air entry bilaterally anteriorly. Unbale to auscultate posteriorly due to body habitus. CVS: S1-S2 regular, no murmurs, no tachycardia, no gallops, no rubs Abdomen: Obese, lower abdomen with cellulitis Neuro: No gross focal motor deficits, no facial deformity, AO x2, intertrigo noted Data : 08/18/22 03:43 08/18/22 03:43 Micro: Microbiology 08/17/22 18:37 Blood Culture - Preliminary Blood SPECIMEN COLLECTED 08/17/22 18:40 Blood Culture - Preliminary Blood SPECIMEN COLLECTED A&P Assessment and plan (1) Sepsis: Fever, leukocytosis, elevated lactate and source of infection as cellulitis concerning for sepsis Source ingrid lower abdominal wall cellulitis Received sepsis bolus in er, will hold off on further IVF as patient currently appears to be euvolemic Blood cx taken prior to starting abx Received Vancomycin in ER start additionally Cefepime 2 g iv q12h and continue vancomycin Trend lactate topical clotrimazole and po fluconazole 100mg daily x 7-10 days for intertrigo Check Covid PCR, CXR and UA to evaluate for other potential sources AMS likely secondary to metabolic encephalopathy, will monitor mental status with treatment (2) Cellulitis: (3) Metabolic encephalopathy: Plan DVt ppx: lovenox Full code Attestations Medical Necessity Statement*: Anticipate >2midnight admission for sepsis, cellulitis, need for iv abx, monitoring mental status Coding Level of Care Code 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
[2022-08-17] MEDS: cefepime 2,000 MG in sodium chloride 0.9% (plus) 50 ML 100 MG IV (23:18)
[2022-08-17] MEDS: acetaminophen 325 mg Tablet 650 MG PO (23:23)
[2022-08-17] MEDS: carbidopa-levodopa 25-100mg Tablet 1 EACH PO (23:23)
[2022-08-17] MEDS: enoxaparin 40 mg/0.4 mL Syringe SUBCUT (23:24)
--- NOTE | 2022-08-17 23:26 | PC.PHAR ---
Pharmacokinetic dosing service Date: 08/17/22 Time: 2326 Objective: Patient: Miguelina Goncalves Floor: 254-2 Age: 62 yo Serum creatinine: 1.2 mg/dL Height: 62.0 Inches Weight (kg): 110.087 Diagnosis: Relevant medical/social history: Cultures and sensitivities: Other labs: Assessment: IBW (kg): 50.10 Dosing wt(kg): 74.1 Estimated Creatinine clearance (ml/min): 38.0 CRCL method: Cockcroft and Gault using ibw(default). Drug selected: Vancomycin Loading dose (mg): 0 Vd (liters): 66.7 (factor used: 0.9 L/kg) Nilay (hr-1): 0.036 Half life (hrs): 19.25 Recommended dose: 1500 mg Interval: 24 hrs Infusion time (hrs): 1.5 Predicted peak (mcg/mL): 37.8 Predicted trough (mcg/mL): 16.82 Adjusted body weight was selected for vancomycin dosing. To switch back, select the total body weight option above. Renal function is stable [ ] /unstable [ ] Recommendations: Give Vancomycin 1500 mg q 24 hrs with an expected Cpeak of 37.8 mcg/ml and an expected Ctrough of 16.82 mcg/ml Renal dosing of other antibiotics (review renal dosing of other medications and list guidelines here): Thank you for the consult, will continue to follow. Signature: Gabrielle Larose [facility]
[2022-08-18] VITALS (8 sets, daily range): BP systolic 113–129; BP diastolic 58–69; PULSE 69–84; RESP 16–17; TEMP 36.5–39.1; O2SAT 94–97
[2022-08-18 04:18] LABS: Basophils % 0.2 %; Hematocrit 33.4 % (37.0-47.0); Hemoglobin 10.5 g/dL (11.5-15.3); Lymphocytes # 0.6 10^3/uL (0.8-4.8); Lymphocytes % 4.5 %; Mean Corpuscular HGB Conc 31.4 g/dL (30.0-36.0); Mean Corpuscular Hemoglobin 25.3 pg (28.0-34.0); Mean Corpuscular Volume 80.5 fl (81-99); Mean Platelet Volume 9.5 fL (7.4-10.4); Monocytes # 0.3 10^3/uL (0.2-0.9); Monocytes % 2.5 %; Neutrophils # 12.75 10^3/uL (1.8-7.7); Neutrophils % 91.9 %; Nucleated Red Blood Cells % 0 %; Platelet Count 129 10^3/cmm (130-400); Red Blood Count 4.15 10^6/uL (4.1-5.3); White Blood Count 13.9 10^3/uL (4.0-10.0)
[2022-08-18 04:34] LABS: Lactic Sepsis W/Reflex 1.1 mmol/L (0.5-2.2)
[2022-08-18 04:35] LABS: Alanine Aminotransferase < 5 U/L (0-33); Albumin Level 2.8 g/dL (3.5-5.2); Alkaline Phosphatase 72 U/L (35-105); Anion Gap 13.4 (5-19); Aspartate Amino Transferase 8 U/L (0-32); Blood Urea Nitrogen 39 mg/dL (8-23); Calcium 8.9 mg/dL (8.5-10.5); Carbon Dioxide 30 mmol/L (22-29); Chloride 96 mmol/L (98-107); Globulin 3.4 g/dL (1.3-4.6); Glomerular Filtration Rate 45.4 mL/min (90-130); Glucose 199 mg/dL (65-115); Osmolality Calculated 297 mOsm/kg (285-295); Potassium 3.4 mmol/L (3.5-5.1); Sodium 136 mmol/L (136-145); Total Bilirubin 0.4 mg/dL (0.15-1.2); Total Protein 6.2 g/dL (6.6-8.7)
[2022-08-18 04:51] LABS: Slide Review Slide Review Perform
--- NOTE | 2022-08-18 05:45 | XRR_ITS ---
PROCEDURE INFORMATION: Exam: XR Chest Exam date and time: 08/18/2022 8:00 AM Age: 62 years old Clinical indication: Fever TECHNIQUE: Imaging protocol: Radiologic exam of the chest. Views: 1 view. COMPARISON: CR XR chest 1V portable [id number] 06/23/2022 3:26 PM FINDINGS: Lungs: There are mildly decreased lung volumes with mild accentuation of the pulmonary vascularity. There are no confluent interstitial or airspace opacities. Unchanged peripheral right mid lung zone calcified granuloma is seen. Pleural spaces: There are no pleural effusions or pneumothorax. Heart/Mediastinum: The heart size is normal. Unchanged prominent left pericardial fat pad is seen. The mediastinal contour is normal. The trachea is in the midline. Bones/joints: No acute abnormalities. Postsurgical changes are seen status post right total shoulder arthroplasty. Mild left shoulder degenerative changes are seen. XR/XR chest 1V portable [id number] IMPRESSION: Mildly decreased lung volumes with mild accentuation of the pulmonary vascularity. No confluent infiltrates in the lungs.
[2022-08-18 06:40] LABS: Glucose Point of Care 178 mg/dL (70-110)
[2022-08-18 06:41] LABS: Urine Appearance SL Hazy (CLEAR); Urine Color Yellow (Yellow); pH Urine 9 (5-7)
[2022-08-18 06:42] LABS: Add Urine Culture? Yes; Add Urine Microscopic? YES; Bacteria Urine 2+ /hpf; Bilirubin Urine Neg (Negative); Blood Urine 2+ (Negative); Glucose Urine UA Norm (Normal); Ketones Urine 1+ (Negative); Leukocyte Esterase Urine 2+ (Negative); Nitrate Urine Negative (Negative); Protein Urine Trace (Negative); Squamous Epithelial Cell Urine 0-4 /hpf (0-5); Urobilinogen Urine Norm (Negative); WBC Urine 15-25 /hpf (0-5)
--- NOTE | 2022-08-18 07:23 | PC.PHAR ---
[facility] is faxing med list 08/18/22 07:24
[2022-08-18 08:07] LABS: Adenovirus Not Detected (NOT DETECT); Chlamydia Pneumoniae Not Detected (NOT DETECT); Coronavirus 229E,HKU1,NL63,OC4 Not Detected (NOT DETECT); Human Metapneumovirus Not Detected (NOT DETECT); Human Rhinovirus/Enterovirus Not Detected (NOT DETECT); Influenza A Not Detected (NOT DETECT); Influenza A H1 Not Detected (NOT DETECT); Influenza A H1-2009 Not Detected (NOT DETECT); Influenza A H3 Not Detected (NOT DETECT); Influenza B Not Detected (NOT DETECT); Mycoplasma Pneumoniae Not Detected (NOT DETECT); Parainfluenza Virus Type 1 Not Detected (NOT DETECT); Parainfluenza Virus Type 2 Not Detected (NOT DETECT); Parainfluenza Virus Type 3 Not Detected (NOT DETECT); Parainfluenza Virus Type 4 Not Detected (NOT DETECT); Respiratory Syncytial Virus A Not Detected (NOT DETECT); Respiratory Syncytial Virus B Not Detected (NOT DETECT); SARS-COV-2 Not Detected (NOT DETECT)
--- NOTE | 2022-08-18 08:34 | P.PN_ITS ---
Subjective Subjective: Patient is not confused at all Complaining abdominal pain She is on 2 L nasal cannula Townsend catheter was placed in the ER She is stating that she uses a cane to ambulate at the group home Vitals/I&O/Wt Last Vital Signs Temp 99.5 F 08/18/22 04:00 Pulse 71 08/18/22 04:00 Resp 16 08/18/22 04:00 BP 113/58 08/18/22 04:00 Pulse Ox 94 08/18/22 04:00 O2 Del Method 08/17/22 21:33 O2 Flow Rate 2 08/17/22 17:28 08/17/22 08/18/22 08/18/22 22:59 06:59 14:59 Intake Total 300 / 300 50 / 350 Balance 300 / 300 50 / 350 Weight last 48 hrs Weight 110.087 kg Physical Exam Narrative: Morbid obesity No signs of stroke No signs of encephalopathy S1, S2 Abdomen soft, erythema extending from right flank towards left, left flank redness has worsened Intertrigo Nonpurulent cellulitis Lower extremity no edema Townsend cath draining dilute urine Patient is awake and alert Pleasant during my evaluation Currently on 2 L Urinary Catheter Management: Townsend: Cath Placed During This Visit: yes Urinary Catheter Date of Insertion: 08/18/22 Urinary Catheter Time of Insertion: 06:22 Data : 08/18/22 03:43 08/18/22 03:43 Micro: Microbiology 08/17/22 18:37 Blood Culture - Preliminary Blood SPECIMEN COLLECTED 08/17/22 18:40 Blood Culture - Preliminary Blood SPECIMEN COLLECTED A&P Assessment and plan (1) Metabolic encephalopathy: (2) Sepsis: (3) Cellulitis: (4) Cellulitis: (5) UTI (urinary tract infection): Plan Metabolic encephalopathy resolved Sepsis: Improving Nonpurulent abdominal wall cellulitis Continue antibiotics, continue vancomycin and cefepime, I do not see any signs of purulence, if she gets febrile episodes then we will do CT scan of abdomen Acute hypoxic requiring 2 L patient is stating that she does not use oxygen at the group home however she was admitted last time and required oxygen which was weaned off by the time she went back to the group home This most likely related to hypoventilation because of obesity UTI: Currently on antibiotics COVID-negative Patient is full code jail resident DVT prophylaxis on board Attestations Medical Necessity Statement*: Continue medical management Time Spent in Patient Care: 40 Coding Level of Care Code 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
[2022-08-18] MEDS: citalopram 20 mg Tablet 15 MG PO (08:38)
[2022-08-18] MEDS: insulin lispro 100 unit/1 mL SUBCUT ×4 (08:38→22:39)
[2022-08-18] MEDS: aspirin 81 mg EC Tablet PO (08:38)
[2022-08-18] MEDS: gabapentin 300 mg Capsule 600 MG PO ×2 (08:38→18:07)
[2022-08-18] MEDS: FUROsemide 20 mg Tablet PO (08:38)
[2022-08-18] MEDS: clotrimazole 1% cream 30 gm 1 APPLIC TOPICAL ×2 (08:39→20:14)
[2022-08-18] MEDS: fluconazole 100 mg Tablet PO (08:39)
[2022-08-18] MEDS: pantoprazole DR 40 mg Tablet PO (08:39)
[2022-08-18 09:47] LABS: Sulfosalicylic Acid Urine Positive (Negative)
[2022-08-18] MEDS: cefepime 2,000 MG in sodium chloride 0.9% (plus) 50 ML 100 MG IV ×2 (11:01→22:45)
[2022-08-18] MEDS: carbidopa-levodopa 25-100mg Tablet 2 EACH PO ×2 (11:06→14:17)
[2022-08-18 12:12] LABS: Glucose Point of Care 253 mg/dL (70-110)
--- NOTE | 2022-08-18 13:36 | PC.CHAP ---
Pastoral Care Encounter/Spiritual Assessment Type of Contact [] Declined student services rep visit [] Patient/Family/Request visit [] Outpatient visit [] Follow-up visit [] Physician referral [] Code/Alert [x] Routine visit [] Staff referral [] Actively dying [] Patient sleeping [] Family support [] [] Out of room [] Palliative care [] [] Receiving care in room [] Pre-surgical visit [] Trauma [] Long length of stay [] ICU visit [] Other: Relational/Emotional Strength [x] Patient feels connected with others/family/visitors/staff [] Distress [] Loneliness/isolation [] Abandonment Spirituality of Patient [x] Person of Ledy [x] Attends Amish of their Ledy [x] Believes in Prayer [] Reads Bible or Church materials [] There are Spiritual issues to be addressed Retread Mold Operator Interventions [x] Prayer [] Active listening [] Non-anxious presence [] Spiritual/emotional support [] Crisis/trauma care [] Spiritual counseling [] Bereavement support [] Provided bereavement packet [] Provided Bible/devotional materials [] Provided toy/stuffed animal, coloring book to patient or family member [] Provided Communion [] Anointing/[place] [] Salvation [x] Completed spiritual assessment [] Other: Impact on Illness or Injury [] Angry [] Fearful [] Anxious [] Often cries [] Exhaustion [] Unable to work [] Unable to attend yarsanism [] Unable to walk/stand [] Unable to read [] Unable to drive [] Unable to eat/drink [] Unable to sleep [] Unable to be with family [] Patient intubated [] Other: Summary min Time spent with patient 10
[2022-08-18] MEDS: gabapentin 400 mg Capsule 800 MG PO (14:17)
[2022-08-18 17:23] LABS: Glucose Point of Care 205 mg/dL (70-110)
[2022-08-18] MEDS: vancomycin 1,500 MG/300 ML PIGGYBACK 200 MG IV (18:07)
[2022-08-18] MEDS: carbidopa-levodopa 25-100mg Tablet 1 EACH PO (20:09)
[2022-08-18] MEDS: insulin glargine 100 units/1 mL 20 UNIT SUBCUT (20:12)
[2022-08-18 21:37] LABS: Glucose Point of Care 245 mg/dL (70-110)
[2022-08-18] MEDS: enoxaparin 40 mg/0.4 mL Syringe SUBCUT (22:40)
[2022-08-19] VITALS (7 sets, daily range): BP systolic 127–144; BP diastolic 62–74; PULSE 64–80; RESP 16–17; TEMP 36.8–37.2; O2SAT 91–98
[2022-08-19 05:16] LABS: Basophils % 0.4 %; Eosinophils # 0.3 10^3/uL (0.0-0.8); Eosinophils % 3.1 %; Hematocrit 35.4 % (37.0-47.0); Hemoglobin 10.9 g/dL (11.5-15.3); Lymphocytes # 0.7 10^3/uL (0.8-4.8); Lymphocytes % 6.9 %; Mean Corpuscular HGB Conc 30.8 g/dL (30.0-36.0); Mean Corpuscular Volume 81.2 fl (81-99); Mean Platelet Volume 9.3 fL (7.4-10.4); Monocytes # 0.4 10^3/uL (0.2-0.9); Monocytes % 4.1 %; Neutrophils # 8.85 10^3/uL (1.8-7.7); Neutrophils % 84.7 %; Nucleated Red Blood Cells % 0 %; Platelet Count 138 10^3/cmm (130-400); Red Blood Count 4.36 10^6/uL (4.1-5.3); White Blood Count 10.4 10^3/uL (4.0-10.0)
[2022-08-19 05:46] LABS: Anion Gap 12.6 (5-19); Blood Urea Nitrogen 35 mg/dL (8-23); Carbon Dioxide 29 mmol/L (22-29); Chloride 99 mmol/L (98-107); Glomerular Filtration Rate 50.2 mL/min (90-130); Glucose 155 mg/dL (65-115); Osmolality Calculated 295 mOsm/kg (285-295); Potassium 3.6 mmol/L (3.5-5.1); Sodium 137 mmol/L (136-145)
[2022-08-19 06:51] LABS: Glucose Point of Care 174 mg/dL (70-110)
[2022-08-19] MEDS: FUROsemide 20 mg Tablet PO (08:04)
[2022-08-19] MEDS: fluconazole 100 mg Tablet PO (08:05)
[2022-08-19] MEDS: pantoprazole DR 40 mg Tablet PO (08:05)
[2022-08-19] MEDS: citalopram 20 mg Tablet 15 MG PO (08:06)
[2022-08-19] MEDS: gabapentin 300 mg Capsule 600 MG PO ×2 (08:06→18:16)
[2022-08-19] MEDS: aspirin 81 mg EC Tablet PO (08:06)
[2022-08-19] MEDS: clotrimazole 1% cream 30 gm 1 APPLIC TOPICAL ×2 (08:07→18:16)
--- NOTE | 2022-08-19 09:37 | PM.PN ---
Subjective Subjective: Patient is wanting to go back Leukocytosis improved A. fib I have asked her to stay at least 2 more days there is some erythema improvement however not complete resolution evident at this point Vitals/I&O/Wt Last Vital Signs Temp 98.8 F 08/19/22 04:00 Pulse 80 08/19/22 08:00 Resp 17 08/19/22 08:00 BP 144/64 08/19/22 08:00 Pulse Ox 91 08/19/22 08:00 O2 Del Method 08/19/22 08:00 O2 Flow Rate 2 08/18/22 20:21 08/18/22 08/19/22 08/19/22 22:59 06:59 14:59 Intake Total 480 / 1160 350 / 350 Output Total 1700 / 1700 Balance 480 / 1160 -1700 / -540 350 / 350 Weight last 48 hrs Weight 110.087 kg Physical Exam Narrative: Awake and alert Currently on 2 L of oxygen which is new requirement Abdomen showing erythema which is slowing some improvement, nontender, soft No active purulent drainage Townsend cath draining dilute urine Awake and alert Nonfocal neuro exam Colestid Urinary Catheter Management: Townsend: Cath Placed During This Visit: yes Reason for Continuing Indwelling Catheter: Other Urinary Catheter Date of Insertion: 08/18/22 Urinary Catheter Time of Insertion: 06:22 Data : 08/19/22 04:32 08/19/22 04:32 Micro: Microbiology 08/17/22 18:40 Blood Culture - Preliminary Blood NEGATIVE TO DATE 08/17/22 18:37 Blood Culture - Preliminary Blood A&P Assessment and plan (1) Metabolic encephalopathy: (2) Sepsis: (3) Cellulitis: (4) UTI (urinary tract infection): Plan Abdominal wall cellulitis Improving Continue antibiotics Afebrile Leukocytosis improving Sepsis resolving Nonpurulent cellulitis UTI Metabolic encephalopathy improved Patient is awake and alert Full code Acute hypoxia related to hypoventilation Wean off to room air DVT prophylaxis on board Attestations Medical Necessity Statement*: Continue medical management plan to discharge her by Thursday Time Spent in Patient Care: 40 Coding Level of Care Code Acute 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
[2022-08-19] MEDS: insulin lispro 100 unit/1 mL SUBCUT ×3 (09:38→23:03)
[2022-08-19] MEDS: sennosides-docusate Tablet 1 TAB PO (09:39)
[2022-08-19] MEDS: carbidopa-levodopa 25-100mg Tablet 2 EACH PO ×2 (09:39→14:42)
[2022-08-19] MEDS: cefepime 2,000 MG in sodium chloride 0.9% (plus) 50 ML 100 MG IV ×2 (11:09→22:45)
[2022-08-19 11:22] LABS: Glucose Point of Care 289 mg/dL (70-110)
[2022-08-19] MEDS: gabapentin 400 mg Capsule 800 MG PO (13:53)
[2022-08-19 17:01] LABS: Glucose Point of Care 124 mg/dL (70-110)
[2022-08-19 18:31] LABS: Vancomycin Trough 8.1 ug/mL (10-15)
[2022-08-19] MEDS: vancomycin 1,500 MG/300 ML PIGGYBACK 200 MG IV (19:00)
[2022-08-19 21:50] LABS: Glucose Point of Care 209 mg/dL (70-110)
--- NOTE | 2022-08-19 22:04 | PC.PHAR ---
Vancomycin trough on dosage of 1500mg IVPB every 24 hours is 8.1. Dosage is increased to 1000mg IVPB every 12 hours with another trough to be obtained before the fourth 1000mg dose.
[2022-08-19] MEDS: enoxaparin 40 mg/0.4 mL Syringe SUBCUT (22:45)
[2022-08-19] MEDS: carbidopa-levodopa 25-100mg Tablet 1 EACH PO (22:49)
[2022-08-19] MEDS: insulin glargine 100 units/1 mL 20 UNIT SUBCUT (23:02)
[2022-08-20] VITALS: BP 125/69; PULSE 63; RESP 17; TEMP 36.7; O2SAT 93
[2022-08-20 03:50] VITALS: BP 133/73; PULSE 63; RESP 17; TEMP 36.6; O2SAT 91
[2022-08-20 05:05] LABS: Basophils % 0.5 %; Eosinophils # 0.4 10^3/uL (0.0-0.8); Hematocrit 35.1 % (37.0-47.0); Hemoglobin 10.8 g/dL (11.5-15.3); Lymphocytes # 0.8 10^3/uL (0.8-4.8); Lymphocytes % 12.3 %; Mean Corpuscular HGB Conc 30.8 g/dL (30.0-36.0); Mean Corpuscular Hemoglobin 25.2 pg (28.0-34.0); Monocytes # 0.5 10^3/uL (0.2-0.9); Monocytes % 7.1 %; Neutrophils # 4.87 10^3/uL (1.8-7.7); Neutrophils % 73.2 %; Nucleated Red Blood Cells % 0 %; Platelet Count 160 10^3/cmm (130-400); Red Blood Count 4.28 10^6/uL (4.1-5.3); Red Cell Distribution Width 17.1 % (12.1-15.1); White Blood Count 6.7 10^3/uL (4.0-10.0)
[2022-08-20 05:36] LABS: Anion Gap 14.7 (5-19); Blood Urea Nitrogen 25 mg/dL (8-23); Calcium 8.6 mg/dL (8.5-10.5); Carbon Dioxide 26 mmol/L (22-29); Chloride 102 mmol/L (98-107); Creatinine Clr Calc Pharmacy 84.1928; Glomerular Filtration Rate 72.4 mL/min (90-130); Glucose 111 mg/dL (65-115); Osmolality Calculated 293 mOsm/kg (285-295); Potassium 3.7 mmol/L (3.5-5.1); Sodium 139 mmol/L (136-145)
[2022-08-20] MEDS: vancomycin 1,000 MG in sodium chloride 0.9% 250 ML 250 MG IV (06:17)
[2022-08-20 06:51] LABS: Glucose Point of Care 133 mg/dL (70-110)
[2022-08-20 07:51] VITALS: BP 131/79; PULSE 69; RESP 16; TEMP 36.7; O2SAT 94
[2022-08-20 08:00] VITALS: BP 129/74; PULSE 72; RESP 16; TEMP 36.7
[2022-08-20] MEDS: carbidopa-levodopa 25-100mg Tablet 2 EACH PO (09:40)
[2022-08-20] MEDS: sennosides-docusate Tablet 1 TAB PO (09:41)
[2022-08-20] MEDS: aspirin 81 mg EC Tablet PO (09:41)
[2022-08-20] MEDS: fluconazole 100 mg Tablet PO (09:41)
[2022-08-20] MEDS: pantoprazole DR 40 mg Tablet PO (09:41)
[2022-08-20] MEDS: gabapentin 300 mg Capsule 600 MG PO (09:41)
[2022-08-20] MEDS: FUROsemide 20 mg Tablet PO (09:41)
[2022-08-20] MEDS: citalopram 20 mg Tablet 15 MG PO (09:42)
[2022-08-20] MEDS: clotrimazole 1% cream 30 gm 1 APPLIC TOPICAL (09:43)
--- NOTE | 2022-08-20 10:20 | PM.DCS ---
Discharge Providers Date of Admission: 08/17/22 20:14 Date of Discharge: August 20, 2022 Attending Provider at Admission: Linda Caceres MD Attending Provider at Discharge: Danelle Valencia MD Primary Care Provider: Evie Aguilar MD Diagnoses at Discharge Discharge Diagnosis (1) Metabolic encephalopathy: Status: Acute (2) Sepsis: Status: Acute (3) Cellulitis: Status: Acute (4) UTI (urinary tract infection): Status: Acute Reason for Visit Reason for Visit: AMS Hospital Course Hospital Course 62-year-old female who is bedbound came from [facility] [facility] for worsening abdominal wall cellulitis she has history of Parkinson's disease, hypertension, morbid obesity, diabetes she has been evaluated by hourly shift manager as well for intertrigo and erythrasma. In the hospital she was diagnosed with sepsis related to abdominal wall cellulitis and UTI, her metabolic encephalopathy related to sepsis improved, she required 2 L of oxygen related to hypoventilation. Her abdominal wall cellulitis was nonpurulent, use of IV antibiotics vancomycin and Zosyn erythrasma of abdominal wall has improved significantly she has remained afebrile cultures negative no leukocytosis. I will discharge her on doxycycline and topical nystatin Physical Exam Narrative: Patient is laying supine Eating breakfast Currently on 2 L of oxygen No active structure distress S1, S2 Abdominal nondistended, abdominal pannus with abdominal wall nonpurulent cellulitis Erythema is regressing from the borders No active signs of cellulitis worsening Intertrigo Townsend cath draining dilute urine Urinary Catheter Management: Townsend: Cath Placed During This Visit: yes Reason for Continuing Indwelling Catheter: Other Urinary Catheter Date of Insertion: 08/18/22 Urinary Catheter Time of Insertion: 06:22 Discharge Data Studies Completed and Pending Completed Studies During Hospitalization Category Date Time Status CXRP [XR chest 1V portable [id number]] Routine Exams 08/18/22 05:45 Completed Pending at discharge Category Date Time Status Blood Culture Stat Lab 08/17/22 18:37 Results SARS Covid-2 Antigen Routine Lab 08/20/22 08:51 Uncollected Vancomycin Trough Timed Lab 08/22/22 18:00 Ordered Radiology Impressions Chest X-Ray 08/18/22 05:45 IMPRESSION: Mildly decreased lung volumes with mild accentuation of the pulmonary vascularity. No confluent infiltrates in the lungs. Laboratory Results WBC 6.7 10^3/uL (4.0-10.0) 08/20/22 04:08 RBC 4.28 10^6/uL (4.1-5.3) 08/20/22 04:08 Hgb 10.8 g/dL (11.5-15.3) L 08/20/22 04:08 Hct 35.1 % (37.0-47.0) L 08/20/22 04:08 MCV 82.0 fl (81-99) 08/20/22 04:08 MCH 25.2 pg (28.0-34.0) L 08/20/22 04:08 MCHC 30.8 g/dL (30.0-36.0) 08/20/22 04:08 RDW 17.1 % (12.1-15.1) H 08/20/22 04:08 Plt Count 160 10^3/cmm (130-400) 08/20/22 04:08 MPV 10.0 fL (7.4-10.4) 08/20/22 04:08 Neut % (Auto) 73.2 % 08/20/22 04:08 Lymph % (Auto) 12.3 % 08/20/22 04:08 [place] % (Auto) 7.1 % 08/20/22 04:08 Eos % (Auto) 6.0 % 08/20/22 04:08 Baso % (Auto) 0.5 % 08/20/22 04:08 Neut # (Auto) 4.87 10^3/uL (1.8-7.7) 08/20/22 04:08 Lymph # (Auto) 0.8 10^3/uL (0.8-4.8) 08/20/22 04:08 [place] # (Auto) 0.5 10^3/uL (0.2-0.9) 08/20/22 04:08 Eos # (Auto) 0.4 10^3/uL (0.0-0.8) 08/20/22 04:08 Baso # (Auto) 0.0 10^3/uL (0.0-0.1) 08/20/22 04:08 Nucleated RBC % (auto) 0 % 08/20/22 04:08 Nucleated RBCs # 0.0 /100WBC 08/20/22 04:08 Sodium 139 mmol/L (136-145) 08/20/22 04:08 Potassium 3.7 mmol/L (3.5-5.1) 08/20/22 04:08 Chloride 102 mmol/L (98-107) 08/20/22 04:08 Carbon Dioxide 26 mmol/L (22-29) 08/20/22 04:08 Anion Gap 14.7 (5-19) 08/20/22 04:08 BUN 25 mg/dL (8-23) H 08/20/22 04:08 Creatinine 0.8 mg/dL (0.5-0.9) 08/20/22 04:08 GFR Calculation 72.4 mL/min (90-130) L 08/20/22 04:08 Glucose 111 mg/dL (65-115) 08/20/22 04:08 POC Glucose 133 mg/dL (70-110) H 08/20/22 06:31 Calculated Osmolality 293 mOsm/kg (285-295) 08/20/22 04:08 Lactic Acid 1.1 mmol/L (0.5-2.2) 08/18/22 03:43 Lactate 3.3 mmol/L (0.5-2.2) H 08/17/22 17:52 Calcium 8.6 mg/dL (8.5-10.5) 08/20/22 04:08 Total Bilirubin 0.4 mg/dL (0.15-1.2) 08/18/22 03:43 AST 8 U/L (0-32) 08/18/22 03:43 ALT < 5 U/L (0-33) 08/18/22 03:43 Alkaline Phosphatase 72 U/L (35-105) 08/18/22 03:43 Total Protein 6.2 g/dL (6.6-8.7) L 08/18/22 03:43 Albumin 2.8 g/dL (3.5-5.2) L 08/18/22 03:43 Globulin 3.4 g/dL (1.3-4.6) 08/18/22 03:43 Urine Color Yellow (Yellow) 08/18/22 06:18 Urine Appearance Sl hazy (CLEAR) A 08/18/22 06:18 Urine pH 9 (5-7) H 08/18/22 06:18 Ur Specific [place] 1.010 (1.005-1.030) 08/18/22 06:18 Urine Protein Trace (Negative) 08/18/22 06:18 Urine Glucose (UA) Norm (Normal) 08/18/22 06:18 Urine Ketones 1+ (Negative) H 08/18/22 06:18 Urine Blood 2+ (Negative) H 08/18/22 06:18 Urine Nitrate Negative (Negative) 08/18/22 06:18 Urine Bilirubin Neg (Negative) 08/18/22 06:18 Prot Sulfosalicylic Acd Positive (Negative) 08/18/22 06:18 Urine Urobilinogen Norm mg/dL (Negative) 08/18/22 06:18 Ur Leukocyte Esterase 2+ (Negative) H 08/18/22 06:18 Urine RBC 5-10 /hpf (0-2) H 08/18/22 06:18 Urine WBC 15-25 /hpf (0-5) H 08/18/22 06:18 Ur Squamous Epith Cells 0-4 /hpf (0-5) H 08/18/22 06:18 Amorphous Sediment Not Reportable 08/18/22 06:18 Urine Bacteria 2+ /hpf (NONE) H 08/18/22 06:18 Vancomycin Trough 8.1 ug/mL (10-15) L 08/19/22 17:32 Coronavirus 229E (PCR) Not detected (NOT DETECT) 08/18/22 05:51 SARS-CoV-2 (PCR) Not detected (NOT DETECT) 08/18/22 05:51 Vitals Last Vital Signs Temp 98.0 F 08/20/22 07:51 Pulse 69 08/20/22 07:51 Resp 16 08/20/22 07:51 BP 131/79 08/20/22 07:51 Pulse Ox 94 08/20/22 07:51 O2 Del Method 08/20/22 07:51 O2 Flow Rate 2 08/19/22 20:00 Discharge Plan Discharge Patient Disposition: Xfer SNF Condition: Stable Prescriptions: New doxycycline hyclate 100 mg tablet 100 mg PO BID 10 Days Qty: 20 0RF nystatin 100,000 unit/gram powder 1 applic topical BID Qty: 30 0RF Continued gabapentin 800 mg tablet 800 mg PO DAILY@12 aspirin [Adult Low Dose Aspirin] 81 mg tablet,delayed release (DR/EC) 81 mg PO DAILY@08 Trulicity 1.5 mg/0.5 mL pen injector 1.5 mg SUBCUT Q7D Rx Instructions: on thursday bisacodyl [Dulcolax (bisacodyl)] 5 mg tablet,delayed release (DR/EC) 10 mg PO DAILY PRN (Reason: Constipation) Rx Instructions: give if no results from mom Fleet Enema 19-7 gram/118 mL enema 118 ml AK DAILY PRN (Reason: Constipation) Rx Instructions: give if no results from mom and dulcolax magnesium hydroxide [Milk of Magnesia] 400 mg/5 mL suspension 30 ml PO DAILY PRN (Reason: Constipation) Rx Instructions: if no bm in 3 days go to dulcolax orders Tresiba U-100 Insulin 100 unit/mL solution 18 unit SUBCUT BEDTIME@20 ammonium lactate 12 % cream 1 applic topical DAILY Qty: 385 6RF Rx Instructions: Apply neck down daily gabapentin 600 mg tablet 600 mg PO BID Qty: 60 10RF carbidopa-levodopa [Sinemet] 25-100 mg tablet 1 tab PO .COMPLEX Qty: 150 11RF Rx Instructions: Take 2 tablets po at 10AM, 2 tablets po at 14:00, and 1 tab po at bedtime@20:00 cholecalciferol (vitamin D3) [Vitamin D3] 125 mcg (5,000 unit) Tablet 125 mcg PO DAILY@08 bisacodyl [Dulcolax (bisacodyl)] 10 mg Suppository 10 mg AK DAILY PRN (Reason: Constipation) Rx Instructions: if no results from mom insulin lispro [Humalog U-100 Insulin] 100 unit/mL Solution See Rx Instructions .ROUTE .COMPLEX Rx Instructions: 8 units with meals and sliding scale if blood sugar is less than 70 call 150-200=0 units 201-250=2 units 251-300=4 units 301-350=6 units 351-400=8 units if blood sugar is greater than 400 call acetaminophen [Tylenol] 325 mg Tablet 650 mg PO Q6H PRN (Reason: Pain) ketoconazole 2 % shampoo 1 applic topical .ON MON AND Rx Instructions: Lather into scalp 2-3 times weekly. Allow to sit on scalp for 5 minutes before rinsing. furosemide 20 mg tablet 20 mg PO DAILY Qty: 30 0RF hydrocodone-acetaminophen 5-325 mg tablet 1 tab PO BEDTIME PRN (Reason: pain) Celexa 10 mg Tablet 15 mg PO DAILY@07 Discharge Orders: Discharge Order (Routine); Ordered 08/20/22 Ordered By: Danelle Valencia Referrals: Evie Aguilar MD [Primary Care Provider] - Discharge Diet: Diabetic Discharge Activity: Resume usual activity Patient Instructions: Cellulitis (GEN) Assessment: You had abdominal wall cellulitis please use antibiotics for 10 days and keep the area dry and avoid moist abdominal wall pannus, use of dry padding and use zinc oxide, you can also use nystatin powder Discharge Attestations Time Spent in Discharge Care*: less than 30 min Quality Metrics Clinical Quality Measures [ No reported AMI, CVA or VTE this stay] Coding Level of Care Code Acute g [facility] note Diagnoses Metabolic encephalopathy G93.41 Sepsis A41.9 Cellulitis L03.90 UTI (urinary tract infection) N39.0
[2022-08-20] MEDS: cefepime 2,000 MG in sodium chloride 0.9% (plus) 50 ML 100 MG IV (11:00)
[2022-08-20 11:26] VITALS: BP 129/74; PULSE 72; RESP 16; TEMP 36.7; O2SAT 95
[2022-08-20 11:42] LABS: Glucose Point of Care 214 mg/dL (70-110)
--- NOTE | 2022-08-20 11:51 | PC.SOCIAL ---
Imm update Imm updated with patient at bedside. Copy of page 2 provided. Patient verbalized understanding. Copy in chart initialed, dated and timed.
[2022-08-20 12:19] LABS: SARS Covid-2 Antigen negative (Negative)
[2022-08-20] MEDS: insulin lispro 100 unit/1 mL SUBCUT (12:44)
[2022-08-20] MEDS: gabapentin 400 mg Capsule 800 MG PO (13:09)
--- NOTE | 2022-08-20 13:32 | PC.NURSE ---
Called report to William Miranda LPN at [facility]
[2022-08-20 14:00] VITALS: BP 129/74; PULSE 72; RESP 16; TEMP 36.7; O2SAT 95
== END 2022-08-20 14:03 | disposition skilled nursing facility (03) | DRG 871 ==
LOC: ER 18:17 → MEDSURG 20:26
PROVIDERS: Emergency Medicine; Admitting Provider Student in an Organized Health Care Education/Training Program; Emergency Provider Emergency Medicine; PCP Internal Medicine; Visit Provider Internal Medicine
DX: A41.9 Sepsis, unspecified organism (principal); G93.41 Metabolic encephalopathy; L03.311 Cellulitis of abdominal wall; E66.2 Morbid (severe) obesity with alveolar hypoventilation; Z68.41 Body mass index [BMI] 40.0-44.9, adult; N39.0 Urinary tract infection, site not specified; L30.4 Erythema intertrigo; G20 Parkinson's disease; E11.42 Type 2 diabetes mellitus with diabetic polyneuropathy; I10 Essential (primary) hypertension; E78.5 Hyperlipidemia, unspecified; Z74.01 Bed confinement status; Z79.82 Long term (current) use of aspirin; Z79.85 Long-term (current) use of injectable non-insulin antidiabetic drugs; Z79.4 Long term (current) use of insulin; Z87.440 Personal history of urinary (tract) infections
CPT/HCPCS: 36415; 36416; 51702; 71045; 80048; 80053; 80202; 81001; 82962; 83605; 85025; 87040; 87086; 87186; 87205; 87426; 87635; 96365; 96366; 96372; 99285; J0692; J1650; J1815; J3370; J7050

== ENCOUNTER → 2022-10-06 09:21 | Outpatient (BNVA) | payer MEDICARE, MEDICAID, SELFPAY | PROVIDERS: PCP Internal Medicine; Visit Provider Specialist | DX: G20 Parkinson's disease (principal); F02.B0 Dementia in other diseases classified elsewhere, moderate, without behavioral disturbance, psychotic disturbance, mood disturbance, and anxiety; R26.89 Other abnormalities of gait and mobility; Z91.81 History of falling | CPT/HCPCS: 99215 ==

== ENCOUNTER → 2022-10-08 10:40 | Outpatient (BNVA) | payer MEDICARE, MEDICAID, SELFPAY | PROVIDERS: PCP Internal Medicine; Visit Provider Nurse Practitioner Family | DX: Z96.611 Presence of right artificial shoulder joint (principal) | CPT/HCPCS: 73030; 99214 ==

== ENCOUNTER 2023-01-22 06:01 | Outpatient (CLI) | payer MEDICARE, MEDICAID, SELFPAY ==
[2023-01-22 06:42] LABS: Anion Gap 11.7 (5-19); Blood Urea Nitrogen 24 mg/dL (8-23); Calcium 8.6 mg/dL (8.5-10.5); Carbon Dioxide 33 mmol/L (22-29); Chloride 100 mmol/L (98-107); Glomerular Filtration Rate 63.2 mL/min (90-130); Glucose 262 mg/dL (65-115); Osmolality Calculated 305 mOsm/kg (285-295); Potassium 3.7 mmol/L (3.5-5.1); Sodium 141 mmol/L (136-145)
== END 2023-01-22 06:02 | disposition home or self-care (01) ==
PROVIDERS: PCP Internal Medicine; Visit Provider Internal Medicine
DX: R60.9 Edema, unspecified (principal)
CPT/HCPCS: 80048

== ENCOUNTER 2023-01-26 09:33 | Outpatient (CLI) | payer MEDICARE, MEDICAID, SELFPAY ==
[2023-01-26 10:22] LABS: Anion Gap 13.3 (5-19); Blood Urea Nitrogen 21 mg/dL (8-23); Calcium 8.6 mg/dL (8.5-10.5); Carbon Dioxide 35 mmol/L (22-29); Chloride 94 mmol/L (98-107); Glucose 209 mg/dL (65-115); Osmolality Calculated 295 mOsm/kg (285-295); Potassium 4.3 mmol/L (3.5-5.1); Sodium 138 mmol/L (136-145)
== END 2023-01-26 09:34 | disposition home or self-care (01) ==
PROVIDERS: PCP Internal Medicine; Visit Provider Internal Medicine
DX: R60.9 Edema, unspecified (principal)
CPT/HCPCS: 80048

== ENCOUNTER 2023-03-23 18:07 | Outpatient (CLI) | payer MEDICARE, MEDICAID, SELFPAY ==
[2023-03-23 19:23] LABS: Anion Gap 17.4 (5-19); Blood Urea Nitrogen 34 mg/dL (8-23); Calcium 8.4 mg/dL (8.5-10.5); Carbon Dioxide 33 mmol/L (22-29); Chloride 91 mmol/L (98-107); Glucose 229 mg/dL (65-115); Osmolality Calculated 301 mOsm/kg (285-295); Potassium 3.4 mmol/L (3.5-5.1); Sodium 138 mmol/L (136-145)
== END 2023-03-23 18:08 | disposition home or self-care (01) ==
LOC: LAB 18:08
PROVIDERS: PCP Internal Medicine; Visit Provider Internal Medicine
DX: Z01.89 Encounter for other specified special examinations (principal)
CPT/HCPCS: 80048

== ENCOUNTER → 2023-03-24 10:25 | Outpatient (BNVA) | payer MEDICARE, MEDICAID, SELFPAY | PROVIDERS: PCP Internal Medicine; Visit Provider Nurse Practitioner Family | DX: Z96.611 Presence of right artificial shoulder joint (principal) | CPT/HCPCS: 99024; 99213 ==

== ENCOUNTER → 2023-05-20 14:58 | Outpatient (BNVA) | payer MEDICARE, MEDICAID, SELFPAY | PROVIDERS: PCP Family Medicine; Visit Provider Specialist | DX: G20 Parkinson's disease (principal) | CPT/HCPCS: 99213 ==

== ENCOUNTER 2023-09-06 10:23 | Inpatient (IN) | payer MEDICARE, MEDICAID, SELFPAY ==
[2023-09-06] VITALS (8 sets, daily range): BP systolic 96–124; BP diastolic 52–94; PULSE 83–88; RESP 16–18; TEMP 36.4–37.1; O2SAT 90–98; BMI 53.0
--- NOTE | 2023-09-06 11:20 | ED_ITS ---
HPI - Wound/Laceration General: Chief Complaint: Wound/Laceration Stated Complaint: SORE ON BOTTOM Time Seen by Provider: 09/06/23 10:54 History of Present Illness: 64-year-old female presents emergency department today via EMS personnel from her long-term care facility. The long-term care facility staff became concerned because of a increased foul-smelling sacral decubitus ulcer. Patient is bedbound and is nonambulatory. Does appear the patient has been receiving wound care but on examination here in the emergency department the wound does appear to have significant eschar and tunneling requiring additional intervention. Patient states that she has had increased fatigue and malaise as well as a subjective fever. She does appear to be very unkept and malodorous. Review of Systems General: Reports: 10 or more systems reviewed and unremarkable except in HPI and below Const: Reports: fatigue and malaise Skin/Breast: Reports: erythema, sores and non-healing lesions [facility] ED PFSH: Medical History (Updated 09/13/23 @ 01:53 CDT by Catracho Shelton MD) Cellulitis Cellulitis Diabetes mellitus Diabetic neuropathy DNR (do not resuscitate) From [facility] paperwork. History of cataract Hyperlipidemia Hypertension Metabolic encephalopathy Parkinson's disease Sepsis UTI (urinary tract infection) Surgical History History of hand surgery Family History Other Cancer Diabetes Social History Smoking and tobacco/nicotine status: never used tobacco/nicotine Alcohol intake: never Substance/Drug Use: never Physical Exam Narrative: EXAM NARRATIVE: Constitutional: the patient appears Unkept, ill-appearing, malodorous, Vital signs reviewed as documented. HENMT: Normocephalic, atraumatic. Extermal ears with normal appearance without drainage. Nose without drainage, normal appearance. Mucus membranes moist. Neck is supple, No jugular venous distension, trachea is midline, no appreciable carotid bruits. No lymphadenopathy. No meningeal signs. Flexion, extension and lateral rotation is without pain. Eyes: Pupils are equal, round, reactive to light and accomidation. No scleral icterus. Extra-ocular movement are intact. Thorax is symmetrical and with equal rise and fall with respirations. Resp: Lungs are clear to auscultation. Significantly diminished bilaterally in the bases secondary to body habitus. No wheezes, rales, crackles or ronchi at pesent. Cardio: Regular rate and rhythm. Positive S1, S2. No appreciable murmurs, rubs or gallops. GI: Abdominal exam reveals normal bowel sounds to all quadrants. No organomegaly. No obvious palpable masses noted. No hepatomegaly appreciated. Soft, nontender to palpation. Extremity: Extremities are edematous and both femoral and pedal pulses are 2+ and equal bilaterally. Moves all extremities, sensation in all extremities. Neuro: Alert and oriented x4, person, place, time and situation. Cranial nerves II through XII are grossly intact, there is no focal neurological deficits that I can appreciate at present. Motor strength in the upper and lower extremities are equal and bilateral 5/5. Psych: Cooperative, calm, normal thought process, appropriate judgment. Significant sacral decubitus ulcer with tunneling noted. There is a significant odor coming from the wound. It does appear to be erythematous, with purulent drainage. Back: Symmetrical, no obvious deformity, No CVA tenderness Course Vital Signs: Vital signs: Vital Signs Temperature 98.7 F 09/11/23 17:31 Pulse Rate 76 09/11/23 17:31 Respiratory Rate 16 09/11/23 17:31 Blood Pressure 147/66 09/11/23 17:31 Pulse Oximetry 97 09/11/23 17:31 Oxygen Delivery Me thod Nasal Cannula 09/11/23 15:46 Oxygen Flow Rate 3 09/11/23 08:00 MDM - Wound/Laceration Medical Decision Making Physical exam completed and documented, I will obtain a CBC, CMP, blood cu ltures, lactic acid procalcitonin and consultation for surgical evaluation for possible debridement of the patient's sacral decubitus ulcer. I will provide the patient IV fluid rehydration as it does appear that she has significant acute kidney injury after reviewing the previous medical records. She does appear to be moderately dehydrated. We will provide antibiotics as well as contact the hospital physician for admission for additional evaluation treatment and care. Medical Records I reviewed the patient's medical records. Lab Data I reviewed the patient's lab results. 09/09/23 04:30 09/11/23 04:35 Laboratory Results WBC 14.50 10^3/uL (3.29-11.43) H 09/06/23 14:01 RBC 4.04 10^6/uL (3.85-5.65) 09/06/23 14:01 Hgb 11.40 g/dL (11.27-16.99) 09/06/23 14:01 Hct 35.6 % (36-47) L 09/06/23 14:01 MCV 88.1 fl (85-98) 09/06/23 14:01 MCH 28.2 pg (27-33) 09/06/23 14:01 MCHC 32.0 g/dL (30-55) 09/06/23 14:01 RDW 14.6 % (12.1-15.1) 09/06/23 14:01 Plt Count 250 10^3/cmm (157-399) 09/06/23 14:01 MPV 8.5 fL (7.4-10.4) 09/06/23 14:01 Neut % (Auto) 90.4 % 09/06/23 14:01 Lymph % (Auto) 4.8 % 09/06/23 14:01 [place] % (Auto) 3.2 % 09/06/23 14:01 Eos % (Auto) 0.6 % 09/06/23 14:01 Baso % (Auto) 0.3 % 09/06/23 14:01 Neut # (Auto) 13.12 10^3/uL (1.8-7.7) H 09/06/23 14:01 Lymph # (Auto) 0.7 10^3/uL (0.8-4.8) L 09/06/23 14:01 [place] # (Auto) 0.5 10^3/uL (0.2-0.9) 09/06/23 14:01 Eos # (Auto) 0.1 10^3/uL (0.0-0.8) 09/06/23 14:01 Baso # (Auto) 0.0 10^3/uL (0.0-0.1) 09/06/23 14:01 Nucleated RBC % (auto) 0 % 09/06/23 14:01 Nucleated RBCs # 0.0 /100WBC 09/06/23 14:01 Sodium 128 mmol/L (136-145) L 09/06/23 14:01 Potassium 4.2 mmol/L (3.5-5.1) 09/06/23 14:01 Chloride 88 mmol/L (98-107) L 09/06/23 14:01 Carbon Dioxide 30 mmol/L (22-29) H 09/06/23 14:01 Anion Gap 14.2 (5-19) 09/06/23 14:01 BUN 35 mg/dL (8-23) H 09/06/23 14:01 Creatinine 1.6 mg/dL (0.5-0.9) H 09/06/23 14:01 GFR Calculation 32.5 mL/min (90-130) L 09/06/23 14:01 Glucose 185 mg/dL (65-115) H 09/06/23 14:01 Calculated Osmolality 279 mOsm/kg (285-295) L 09/06/23 14:01 Calcium 8.9 mg/dL (8.5-10.5) 09/06/23 14:01 Total Bilirubin 0.4 mg/dL (0.15-1.2) 09/06/23 14:01 AST 7 U/L (0-32) 09/06/23 14:01 ALT < 5 U/L (0-33) 09/06/23 14:01 Alkaline Phosphatase 121 U/L (35-105) H 09/06/23 14:01 C-Reactive Protein 293.4 mg/L (0.0-4.9) H 09/06/23 14:01 Total Protein 7.1 g/dL (6.6-8.7) 09/06/23 14:01 Albumin 3.0 g/dL (3.5-5.2) L 09/06/23 14:01 Globulin 4.1 g/dL (1.3-4.6) 09/06/23 14:01 Procalcitonin 0.26 ng/mL (0-0.5) 09/06/23 14:01 Urine Color Yellow (Yellow) 09/06/23 12:48 Urine Appearance Cloudy (CLEAR) A 09/06/23 12:48 Urine pH 8 (5-7) H 09/06/23 12:48 Ur Specific [place] 1.005 (1.005-1.030) 09/06/23 12:48 Urine Protein Trace (Negative) 09/06/23 12:48 Urine Glucose (UA) Norm (Normal) 09/06/23 12:48 Urine Ketones Negative (Negative) 09/06/23 12:48 Urine Blood 2+ (Negative) H 09/06/23 12:48 Urine Nitrate Negative (Negative) 09/06/23 12:48 Urine Bilirubin Neg (Negative) 09/06/23 12:48 Prot Sulfosalicylic Acd Positive (Negative) 09/06/23 12:48 Urine Urobilinogen Norm mg/dL (Negative) 09/06/23 12:48 Ur Leukocyte Esterase 2+ (Negative) H 09/06/23 12:48 Urine RBC 0-4 /hpf (0-2) H 09/06/23 12:48 Urine WBC 15-25 /hpf (0-5) H 09/06/23 12:48 Ur Squamous Epith Cells 5-10 /hpf (0-5) H 09/06/23 12:48 Amorphous Sediment Not Reportable 09/06/23 12:48 Urine Bacteria 3+ /hpf (NONE) H 09/06/23 12:48 No radiology studies performed this visit Discharge Plan Discharge Patient Disposition: Admitted As Inpatient Admit Provider: Gene Forbes Clinical Impression: Sacral decubitus ulcer, stage IV, Acute kidney injury Condition: Stable Coding Level of Care Code ED [employer] Delivery [employer] for Taurus Mccarthy
[2023-09-06 13:49] LABS: Bilirubin Urine Neg (Negative); Blood Urine 2+ (Negative); Glucose Urine UA Norm (Normal); Ketones Urine Negative (Negative); Nitrate Urine Negative (Negative); Protein Urine Trace (Negative); Specific Gravity, Urine 1.005 (1.005-1.030); Urine Appearance Cloudy (CLEAR); Urine Color Yellow (Yellow); pH Urine 8 (5-7)
[2023-09-06 13:50] LABS: Add Urine Microscopic? YES; Leukocyte Esterase Urine 2+ (Negative); Urobilinogen Urine Norm (Negative)
[2023-09-06 13:51] LABS: Add Urine Culture? Yes; Bacteria Urine 3+ /hpf; RBC Urine 0-4 /hpf (0-2); Sulfosalicylic Acid Urine Positive (Negative); WBC Urine 15-25 /hpf (0-5)
[2023-09-06 14:06] LABS: Basophils % 0.3 %; Eosinophils # 0.1 10^3/uL (0.0-0.8); Eosinophils % 0.6 %; Hematocrit 35.6 % (36-47); Lymphocytes # 0.7 10^3/uL (0.8-4.8); Lymphocytes % 4.8 %; Mean Corpuscular Hemoglobin 28.2 pg (27-33); Mean Corpuscular Volume 88.1 fl (85-98); Mean Platelet Volume 8.5 fL (7.4-10.4); Monocytes # 0.5 10^3/uL (0.2-0.9); Monocytes % 3.2 %; Neutrophils # 13.12 10^3/uL (1.8-7.7); Neutrophils % 90.4 %; Nucleated Red Blood Cells % 0 %; Platelet Count 250 10^3/cmm (157-399); Red Blood Count 4.04 10^6/uL (3.85-5.65); Red Cell Distribution Width 14.6 % (12.1-15.1)
[2023-09-06] MEDS: levofloxacin-dextrose 5 % 750 MG/150 ML PREMIX 100 MG IV (14:23)
[2023-09-06 14:25] LABS: Alanine Aminotransferase < 5 U/L (0-33); Alkaline Phosphatase 121 U/L (35-105); Anion Gap 14.2 (5-19); Aspartate Amino Transferase 7 U/L (0-32); Blood Urea Nitrogen 35 mg/dL (8-23); C Reactive Protein 293.4 mg/L (0.0-4.9); Calcium 8.9 mg/dL (8.5-10.5); Carbon Dioxide 30 mmol/L (22-29); Chloride 88 mmol/L (98-107); Globulin 4.1 g/dL (1.3-4.6); Glomerular Filtration Rate 32.5 mL/min (90-130); Glucose 185 mg/dL (65-115); Osmolality Calculated 279 mOsm/kg (285-295); Potassium 4.2 mmol/L (3.5-5.1); Sodium 128 mmol/L (136-145); Total Bilirubin 0.4 mg/dL (0.15-1.2); Total Protein 7.1 g/dL (6.6-8.7)
[2023-09-06 14:32] LABS: Procalcitonin 0.26 ng/mL (0-0.5)
--- NOTE | 2023-09-06 14:49 | PC.NURSE ---
Called sister to update on patient no answer at this time. Called [facility] to give report. No answer at nurses station.
--- NOTE | 2023-09-06 15:40 | P.HP_ITS ---
Providers/Chief Complaint Admitting Physician: Gene Forbes DO Primary Care Provider: Berta Barrett MD Chief Complaint: SORE ON BOTTOM History of Present Illness Miguelina Goncalves is a 63 year old female resident at [facility], [facility] who is bedridden. She is transferred to the ER today due to foul-smelling sacral decubitus. In the emergency room she is found to have an elevated white count, MAN with BUN/creatinine suggestive of some dehydration, extremely elevated CT RP at 293, malnutrition with an albumin of 3.0 and cloudy urine suggestive of a UTI. Surgery was consulted for wound debridement for the morning. Review of Systems Const: Denies: fever(s) or chills Eyes: Denies: change in vision ENMT: Denies: throat pain or nasal congestion Card: Denies: chest pain or palpitations Resp: Denies: dyspnea or productive cough GI: Denies: abdominal pain, nausea, vomiting or change in stool character : Denies: dysuria Musc: Reports: back pain (Chronic); Denies: extremity pain Skin/Breast: Denies: rash or lesions Neuro: Denies: headache(s) or dizziness Psych: Denies: anxiety or depression Gomez/Lymph: Denies: easy bruising or easy bleeding Medications/Allergies Home Medications Medication Instructions Recorded Confirmed Last Taken Type aspirin 81 mg tablet,delayed 81 mg PO DAILY@01/31/20 09/06/23 09/06/23 History release (Adult Low Dose Aspirin) gabapentin 800 mg tablet 800 mg PO DAILY@01/31/20 09/06/23 06/23/22 13:43 History gabapentin 600 mg tablet 600 mg PO BID #60 tabs 11/06/21 09/06/23 09/06/23 Rx cholecalciferol (vitamin D3) 125 125 mcg PO DAILY@01/22/22 09/06/23 09/06/23 History mcg (5,000 unit) tablet (Vitamin D3) bisacodyl 5 mg tablet,delayed 10 mg PO DAILY PRN Constipation 06/17/22 09/06/23 Unknown History release (Dulcolax (bisacodyl)) magnesium hydroxide 400 mg/5 mL 30 ml PO DAILY PRN Constipation 06/17/22 09/06/23 Unknown History oral suspension (Milk of Magnesia) sodium phosphates 19 gram-7 118 ml UT DAILY PRN Constipation 06/17/22 09/06/23 Unknown History gram/118 mL enema (Fleet Enema) acetaminophen 325 mg tablet 650 mg PO Q6H PRN Pain 06/23/22 09/06/23 Unknown History (Tylenol) bisacodyl 10 mg rectal suppository 10 mg UT DAILY PRN Constipation 06/23/22 09/06/23 Unknown History (Dulcolax (bisacodyl)) hydrocodone 5 mg-acetaminophen 325 1 tab PO TID PRN pain 08/17/22 09/06/23 09/06/23 History mg tablet Wheeled walker with seat #1 ea 10/06/22 09/06/23 Unknown Rx carbidopa 25 mg-levodopa 100 mg 1 tab PO BEDTIME 09/06/23 09/06/23 09/05/23 History tablet carbidopa 25 mg-levodopa 100 mg 2 tab PO TID@08,12,16 09/06/23 09/06/23 09/06/23 History tablet (Sinemet) cyclobenzaprine 5 mg tablet 5 mg PO BID PRN Muscle Spasm 09/06/23 09/06/23 Unknown History diclofenac sodium 1 % topical gel 1 g topical TID 09/06/23 09/06/23 Unknown History dulaglutide 3 mg/0.5 mL 3 mg SUBCUT Q7D 09/06/23 09/06/23 09/04/23 History subcutaneous pen injector (Trulicity) fluconazole 200 mg tablet 200 mg PO DAILY 09/06/23 09/06/23 09/06/23 History furosemide 40 mg tablet 40 mg PO BID 09/06/23 09/06/23 09/06/23 History insulin degludec 100 unit/mL (3 35 unit SUBCUT BEDTIME 09/06/23 09/06/23 09/05/23 History mL) subcutaneous pen (Tresiba FlexTouch U-100 insulin) insulin lispro 100 unit/mL See Rx Instructions .Route .COMPLEX 09/06/23 09/06/23 09/06/23 History subcutaneous pen (Humalog KwikPen (U-100) Insulin) ketoconazole 1 % shampoo (Nizoral See Rx Instructions .Route .COMPLEX 09/06/23 09/06/23 Unknown History A-D) loratadine 10 mg tablet (Claritin) 10 mg PO DAILY@08 09/06/23 09/06/23 09/06/23 History losartan 25 mg tablet 25 mg PO DAILY@09/06/23 09/06/23 09/06/23 History metolazone 2.5 mg tablet 2.5 mg PO DAILY 09/06/23 09/06/23 09/06/23 History nystatin 100,000 unit/gram topical See Rx Instructions .Route .COMPLEX 09/06/23 09/06/23 Unknown History powder potassium chloride 20 mEq 40 meq PO DAILY@09/06/23 09/06/23 09/06/23 History tablet,extended release(part/cryst) Allergies Allergy/AdvReac Type Severity Reaction Status Date / Time ampicillin Allergy Unknown Rash and Verified 09/06/23 10:42 Itching mushroom Allergy Unknown Verified 09/06/23 14:54 PFSH Acute PFSH: Medical History (Updated 09/06/23 @ 15:50 by Gene Forbes DO) Cellulitis Cellulitis Diabetes mellitus Diabetic neuropathy DNR (do not resuscitate) From [facility] paperwork. History of cataract Hyperlipidemia Hypertension Metabolic encephalopathy Parkinson's disease Sepsis UTI (urinary tract infection) Surgical History History of hand surgery Family History Other Cancer Diabetes Social History Smoking and tobacco/nicotine status: never used tobacco/nicotine Alcohol intake: never Substance/Drug Use: never Vitals/I&O/Wt Last Vital Signs Temp 98.7 F 09/06/23 10:31 Pulse 83 09/06/23 10:31 BP 117/65 09/06/23 10:41 Pulse Ox 96 09/06/23 13:11 O2 Del Method Room Air 09/06/23 13:11 Weight last 48 hrs Weight 131.542 kg Physical Exam Narrative: Super morbid obese older adult in no acute distress at time of exam. Neurologic she appears to be alert to self and place. Nonfocal exam. HEENT head is normocephalic atraumatic pupils equal round reactive to light accommodation extraocular muscles are intact there is no scleral icterus mucous membranes are moist and pink of the nasopharyngeal region neck is supple no JVD carotid bruits or lymphadenopathy Heart is regular normal S1-S2 without loud murmur click gallop or rub Lungs are clear to auscultation anteriorly Abdomen super morbidly obese. Yeast infection found in the folds of the pannus and inguinal area. Normal bowel sounds generally soft and nontender Extremities no clubbing cyanosis or edema. Patient has mottled appearing skin. It does carlos. Buttocks: Extremely foul-smelling sacral decub with eschar. Unable to fully evaluate without assistance. Per ER physician it is deep and tunneled. Data 09/06/23 14:01 09/06/23 14:01 Micro: Microbiology 09/06/23 14:36 Blood Culture - Preliminary Blood SPECIMEN COLLECTED 09/06/23 14:29 Blood Culture - Preliminary Blood SPECIMEN COLLECTED A&P Assessment and plan (1) Sacral decubitus ulcer, stage IV: IV antibiotics with vancomycin and Zosyn. Surgery consulted in the ER for debridement (2) Parkinson's disease: Continue doses of home Sinemet (3) UTI (urinary tract infection): Received a dose of Levaquin in the ER and should be covered on ceftriaxone. (4) Hypertension: Holding patient's home antihypertensives due to low normal blood pressures (5) Diabetes mellitus: Will place on insulin protocol (6) [facility] resident: (7) DNR (do not resuscitate): Found on [facility] paperwork. (8) Yeast dermatitis: Patient was on Diflucan 200 mg orally at [facility]. Will change to IV due to the severity of cellulitis and possibly in urine and even in sacral decub (9) Acute kidney injury: Most likely from UTI and dehydration. Will hydrate with normal saline and at midnight change to D5 half. Plan Admit to the hospital. Surgical debridement in a.m. Attestations Medical Necessity Statement*: Patient's care is expected to cross 2 midnights for the care of sacral decubitus requiring surgical intervention and IV antibiotics Coding Level of Care Code Acute Code for [facility] Fwd Diagnoses Sacral decubitus ulcer, stage IV L89.154 Parkinson's disease G20 UTI (urinary tract infection) N39.0 Hypertension I10 Diabetes mellitus E11.9 [facility] resident Z59.3 DNR (do not resuscitate) Z66 Yeast dermatitis B37.2 Acute kidney injury N17.9
--- NOTE | 2023-09-06 15:50 | PC.PHAR ---
pt is from [facility]-medications entered are from the pts mar and tar that [facility] sent with pt
--- NOTE | 2023-09-06 15:52 | P.CONIM_ITS ---
Providers/Reason For Consult Consulting Physician/Specialty*: General surgery Reason for Consult*: Infected sacral decubitus ulcer Attending Physician: Gene Forbes DO Primary Care Provider: Berta Barrett MD History of Present Illness History of Present Illness Miguelina Goncalves is a 63 year old female who is a care home resident and was transferred to our health care facility after being noticed to have a sacral decubitus ulcer that appeared to be worsening and had foul-smelling discharge. Per patient report she is in the care home because she has Parkinson's unable to take care of herself, only family member is a sister. She states that the sacral decubitus was noticed about 1 week ago and has not been receiving any wound care for it. She is not ambulatory, uses a wheelchair to move around. Of note patient was also noted to have UTI during this hospital evaluation Review of Systems Narrative: 10 point review of system all negative otherwise noted in HPI Medications/Allergies Home Medications Medication Instructions Recorded Confirmed Last Taken Type aspirin 81 mg tablet,delayed 81 mg PO DAILY@01/31/20 09/06/23 09/06/23 History release (Adult Low Dose Aspirin) gabapentin 800 mg tablet 800 mg PO DAILY@01/31/20 09/06/23 06/23/22 13:43 History gabapentin 600 mg tablet 600 mg PO BID #60 tabs 11/06/21 09/06/23 09/06/23 Rx cholecalciferol (vitamin D3) 125 125 mcg PO DAILY@01/22/22 09/06/23 09/06/23 History mcg (5,000 unit) tablet (Vitamin D3) bisacodyl 5 mg tablet,delayed 10 mg PO DAILY PRN Constipation 06/17/22 09/06/23 Unknown History release (Dulcolax (bisacodyl)) magnesium hydroxide 400 mg/5 mL 30 ml PO DAILY PRN Constipation 06/17/22 09/06/23 Unknown History oral suspension (Milk of Magnesia) sodium phosphates 19 gram-7 118 ml NC DAILY PRN Constipation 06/17/22 09/06/23 Unknown History gram/118 mL enema (Fleet Enema) acetaminophen 325 mg tablet 650 mg PO Q6H PRN Pain 06/23/22 09/06/23 Unknown History (Tylenol) bisacodyl 10 mg rectal suppository 10 mg NC DAILY PRN Constipation 06/23/2208/10 Unknown History (Dulcolax (bisacodyl)) hydrocodone 5 mg-acetaminophen 325 1 tab PO TID PRN pain 08/17/22 09/06/23 09/06/23 History mg tablet Wheeled walker with seat #1 ea 10/06/22 09/06/23 Unknown Rx carbidopa 25 mg-levodopa 100 mg 1 tab PO BEDTIME 09/06/23 09/06/23 09/05/23 History tablet carbidopa 25 mg-levodopa 100 mg 2 tab PO TID@08,12,16 09/06/23 09/06/23 09/06/23 History tablet (Sinemet) cyclobenzaprine 5 mg tablet 5 mg PO BID PRN Muscle Spasm 09/06/23 09/06/23 Unknown History diclofenac sodium 1 % topical gel 1 g topical TID 09/06/23 09/06/23 Unknown History dulaglutide 3 mg/0.5 mL 3 mg SUBCUT Q7D 09/06/23 09/06/23 09/04/23 History subcutaneous pen injector (Trulicity) fluconazole 200 mg tablet 200 mg PO DAILY 09/06/23 09/06/23 09/06/23 History furosemide 40 mg tablet 40 mg PO BID 09/06/23 09/06/23 09/06/23 History insulin degludec 100 unit/mL (3 35 unit SUBCUT BEDTIME 09/06/23 09/06/23 09/05/23 History mL) subcutaneous pen (Tresiba FlexTouch U-100 insulin) insulin lispro 100 unit/mL See Rx Instructions .Route .COMPLEX 09/06/23 09/06/23 09/06/23 History subcutaneous pen (Humalog KwikPen (U-100) Insulin) ketoconazole 1 % shampoo (Nizoral See Rx Instructions .Route .COMPLEX 09/06/23 09/06/23 Unknown History A-D) loratadine 10 mg tablet (Claritin) 10 mg PO DAILY@08 09/06/23 09/06/23 09/06/23 History losartan 25 mg tablet 25 mg PO DAILY@08 09/06/23 09/06/23 09/06/23 History metolazone 2.5 mg tablet 2.5 mg PO DAILY 09/06/23 09/06/23 09/06/23 History nystatin 100,000 unit/gram topical See Rx Instructions .Route .COMPLEX 09/06/23 09/06/23 Unknown History powder potassium chloride 20 mEq 40 meq PO DAILY@08 09/06/23 09/06/23 09/06/23 History tablet,extended release(part/cryst) Allergies Allergy/AdvReac Type Severity Reaction Status Date / Time ampicillin Allergy Unknown Rash and Verified 09/06/23 10:42 Itching mushroom Allergy Unknown Verified 09/06/23 14:54 PFSH Acute PFSH: Medical History (Updated 09/06/23 @ 15:50 by Gene Forbes DO) Cellulitis Cellulitis Diabetes mellitus Diabetic neuropathy DNR (do not resuscitate) From [facility] paperwork. History of cataract Hyperlipidemia Hypertension Metabolic encephalopathy Parkinson's disease Sepsis UTI (urinary tract infection) Surgical History History of hand surgery Family History Other Cancer Diabetes Social History Smoking and tobacco/nicotine status: never used tobacco/nicotine Alcohol intake: never Substance/Drug Use: never Vitals/I&O/Wt Last Vital Signs Temp 98.7 F 09/06/23 10:31 Pulse 83 09/06/23 10:31 BP 117/65 09/06/23 10:41 Pulse Ox 96 09/06/23 13:11 O2 Del Method Room Air 09/06/23 13:11 Weight last 48 hrs Weight 290 lb Physical Exam Const: OTHER: Patient is alert and oriented, laying in bed GI: OTHER: Abdomen soft and nontender Back/Pelvis: OTHER: On the sacral region there is an excavated decubitus ulcer, at the moment is unstageable due to eschar the ulcer is about 4 x 7 cm, there is foul-smelling discharge from the ulcer, but I do not notice any fluctuance. Data 09/06/23 14:01 09/06/23 14:01 Micro: Microbiology 09/06/23 14:36 Blood Culture - Preliminary Blood SPECIMEN COLLECTED 09/06/23 14:29 Blood Culture - Preliminary Blood SPECIMEN COLLECTED A&P Assessment and plan (1) Sacral decubitus ulcer, stage IV: After complete history, physical examination and review of all available clinical data the following is my assessment. Patient will be admitted to the hospitalist team for antibiotic management and treatment of her UTI. I think it is important for her to get a debridement of her sacral decubitus ulcer in the operating room in order to improve her chances of healing. Splane the risk and benefits of the wound debridement including the risks of bleeding, infection, need for additional procedures, delayed wound healing, worsening sacral decubitus ulcer, injury to adjacent structures. Patient agrees with the plan an d wishes to proceed. I will take the patient to the OR tomorrow morning for debridement and will subsequently follow for wound care. Coding Level of Care Code 98615 Diagnoses Sacral decubitus ulcer, stage IV L89.154
[2023-09-06] MEDS: sodium chloride 0.9% 1,000 ML 75 ML IV (17:04)
[2023-09-06] MEDS: carbidopa-levodopa 25-100mg Tablet 2 EACH PO (17:09)
[2023-09-06] MEDS: cefTRIAXone 1,000 MG in sodium chloride 0.9% (plus) 50 ML 100 MG IV (17:11)
[2023-09-06] MEDS: enoxaparin 40 mg/0.4 mL Syringe SUBCUT (17:15)
[2023-09-06] MEDS: fluconazole premix 200 MG/100 ML PREMIX 100 MG IV (17:20)
[2023-09-06 18:02] LABS: Glucose Point of Care 233 mg/dL (70-110)
[2023-09-06] MEDS: gabapentin 300 mg Capsule 600 MG PO (18:16)
[2023-09-06] MEDS: docusate sodium 100 mg Capsule PO (18:16)
[2023-09-06] MEDS: FUROsemide 40 mg Tablet PO (18:16)
[2023-09-06] MEDS: carbidopa-levodopa 25-100mg Tablet 1 EACH PO (20:45)
[2023-09-06 21:07] LABS: Glucose Point of Care 197 mg/dL (70-110)
[2023-09-06] MEDS: insulin glargine 100 units/1 mL 17 UNIT SUBCUT (21:13)
[2023-09-07] VITALS (23 sets, daily range): BP systolic 79–149; BP diastolic 33–82; PULSE 78–96; RESP 16–19; TEMP 36.1–37.3; O2SAT 93–100
[2023-09-07 05:21] LABS: Basophils % 0.3 %; Eosinophils # 0.2 10^3/uL (0.0-0.8); Eosinophils % 1.3 %; Hematocrit 30.1 % (36-47); Lymphocytes # 0.7 10^3/uL (0.8-4.8); Lymphocytes % 5.8 %; Mean Corpuscular HGB Conc 31.9 g/dL (30-55); Mean Corpuscular Hemoglobin 27.9 pg (27-33); Mean Corpuscular Volume 87.5 fl (85-98); Mean Platelet Volume 8.8 fL (7.4-10.4); Monocytes # 0.5 10^3/uL (0.2-0.9); Monocytes % 3.9 %; Neutrophils # 10.89 10^3/uL (1.8-7.7); Neutrophils % 87.7 %; Nucleated Red Blood Cells % 0 %; Platelet Count 228 10^3/cmm (157-399); Red Blood Count 3.44 10^6/uL (3.85-5.65); Red Cell Distribution Width 14.6 % (12.1-15.1); White Blood Count 12.42 10^3/uL (3.29-11.43)
[2023-09-07 05:49] LABS: Blood Urea Nitrogen 35 mg/dL (8-23); Calcium 8.2 mg/dL (8.5-10.5); Carbon Dioxide 26 mmol/L (22-29); Chloride 96 mmol/L (98-107); Glucose 135 mg/dL (65-115); Osmolality Calculated 286 mOsm/kg (285-295); Sodium 133 mmol/L (136-145)
--- NOTE | 2023-09-07 06:19 | PC.NURSE ---
surgical forceps fabricator took the pt to pre op around 0615.
--- NOTE | 2023-09-07 06:46 | ANES.PREANE2 ---
Pre-Anesthetic Assessment Height/Weight: Height 1.57 m Weight 131.542 kg Temp Pulse Resp BP Pulse Ox O2 Del Method 98.2 F 85 17 105/54 95 Room Air 09/07/23 06:30 09/07/23 06:30 09/07/23 06:30 09/07/23 06:30 09/07/23 06:30 09/07/23 06:30 Operation Date: 09/07/23 07:00 Proposed Procedures p Debridement Sacral(Not Applicable) - Cristian Melara MD Familial anesthetic complications: None Was Beta Alec taken within 24 hours: N/A Was Clonidine taken within 24 hours: N/A Last intake: Intake Last Liquid Date 09/06/23 Last Liquid Time 23:00 Last Solid Date 09/06/23 Last Solid Time 23:00 Social No alcohol and No tobacco Exam alert, oriented x 3, clear to auscultation bilaterally and regular rate & rhythm Airway Mallampati: Class IV Dentition: other (only 5 teeth) CV/HEM Hypertension Metabolic Diabetes Mellitus and Morbid Obesity Neuropsych parkscarlos's Anesthetic Plan ASA status: 3 Anesthesia: General Risk of > 500 ml blood loss (7ml/kg in children): No Other Pertinent Information Desires to be full code in OR Medications/Allergies Home Medications Medication Instructions Recorded Confirmed Last Taken Type aspirin 81 mg tablet,delayed 81 mg PO DAILY@01/31/20 09/06/23 09/06/23 History release (Adult Low Dose Aspirin) gabapentin 800 mg tablet 800 mg PO DAILY@01/31/20 09/06/23 06/23/22 13:43 History gabapentin 600 mg tablet 600 mg PO BID #60 tabs 11/06/21 09/06/23 09/06/23 Rx cholecalciferol (vitamin D3) 125 125 mcg PO DAILY@01/22/22 09/06/23 09/06/23 History mcg (5,000 unit) tablet (Vitamin D3) bisacodyl 5 mg tablet,delayed 10 mg PO DAILY PRN Constipation 06/17/22 09/06/23 Unknown History release (Dulcolax (bisacodyl)) magnesium hydroxide 400 mg/5 mL 30 ml PO DAILY PRN Constipation 06/17/22 09/06/23 Unknown History oral suspension (Milk of Magnesia) sodium phosphates 19 gram-7 118 ml SC DAILY PRN Constipation 06/17/22 09/06/23 Unknown History gram/118 mL enema (Fleet Enema) acetaminophen 325 mg tablet 650 mg PO Q6H PRN Pain 06/23/22 09/06/23 Unknown History (Tylenol) bisacodyl 10 mg rectal suppository 10 mg SC DAILY PRN Constipation 06/23/22 09/06/23 Unknown History (Dulcolax (bisacodyl)) hydrocodone 5 mg-acetaminophen 325 1 tab PO TID 08/17/22 09/06/23 09/06/23 History mg tablet Wheeled walker with seat #1 ea 10/06/22 09/06/23 Unknown Rx carbidopa 25 mg-levodopa 100 mg 1 tab PO BEDTIME 09/06/23 09/06/23 09/05/23 History tablet carbidopa 25 mg-levodopa 100 mg 2 tab PO TID@08,12,16 09/06/23 09/06/23 09/06/23 History tablet (Sinemet) cyclobenzaprine 5 mg tablet 5 mg PO BID PRN Muscle Spasm 09/06/23 09/06/23 Unknown History diclofenac sodium 1 % topical gel 1 g topical TID 09/06/23 09/06/23 Unknown History dulaglutide 3 mg/0.5 mL 3 mg SUBCUT Q7D 09/06/23 09/06/23 09/04/23 History subcutaneous pen injector (Trulicity) fluconazole 200 mg tablet 200 mg PO DAILY 09/06/23 09/06/23 09/06/23 History furosemide 40 mg tablet 40 mg PO BID 09/06/23 09/06/23 09/06/23 History insulin degludec 100 unit/mL (3 35 unit SUBCUT BEDTIME 09/06/23 09/06/23 09/05/23 History mL) subcutaneous pen (Tresiba FlexTouch U-100 insulin) insulin lispro 100 unit/mL See Rx Instructions .Route .COMPLEX 09/06/23 09/06/23 09/06/23 History subcutaneous pen (Humalog KwikPen (U-100) Insulin) ketoconazole 1 % shampoo (Nizoral See Rx Instructions .Route .COMPLEX 09/06/23 09/06/23 Unknown History A-D) loratadine 10 mg tablet (Claritin) 10 mg PO DAILY@08 09/06/23 09/06/23 09/06/23 History losartan 25 mg tablet 25 mg PO DAILY@08 09/06/23 09/06/23 09/06/23 History metolazone 2.5 mg tablet 2.5 mg PO DAILY 09/06/23 09/06/23 09/06/23 History nystatin 100,000 unit/gram topical See Rx Instructions .Route .COMPLEX 09/06/23 09/06/23 Unknown History powder potassium chloride 20 mEq 40 meq PO DAILY@09/06/23 09/06/23 09/06/23 History tablet,extended release(part/cryst) Allergies Allergy/AdvReac Type Severity Reaction Status Date / Time ampicillin Allergy Unknown Rash and Verified 09/06/23 10:42 Itching mushroom Allergy Unknown Verified 09/06/23 14:54 Current Medications Generic Name Dose Route Start Last Admin Trade Name Freq PRN Reason Stop Dose Admin Carbidopa/Levodopa 1 each 09/06/23 21:00 09/06/23 20:45 Carbidopa-Levodopa 25-100mg Tablet PO 1 each BEDTIME MARIO Administration Carbidopa/Levodopa 2 each 09/06/23 16:00 09/06/23 17:09 Carbidopa-Levodopa 25-100mg Tablet PO 2 each TID@08,12,16 MARIO Administration Docusate Sodium 100 mg 09/06/23 18:00 09/06/23 18:16 Docusate Sodium 100 Mg Capsule PO 100 mg BID MARIO Administration Enoxaparin Sodium 40 mg 09/06/23 17:00 09/06/23 17:15 Enoxaparin 40 Mg/0.4 Ml Syringe SUBCUT 40 mg Q24H MARIO Administration Furosemide 40 mg 09/06/23 18:00 09/06/23 18:16 Furosemide 40 Mg Tablet PO 40 mg BID MARIO Administration Gabapentin 600 mg 09/06/23 18:00 09/06/23 18:16 Gabapentin 300 Mg Capsule PO 600 mg BID MARIO Administration Fluconazole 200 mg in 100 mls @ 100 mls/hr 09/06/23 17:00 09/06/23 20:52 Diflucan Premix IV Infused Q24H MARIO Infusion Insulin Glargine 17 unit 09/06/23 21:00 09/06/23 21:13 Insulin Glargine 100 Units/1 Ml SUBCUT 17 unit BEDTIME MARIO Administration COUNTS INCLUDE 234 BEDS AT THE [facility] Anesthesia Medical History (Updated 09/06/23 @ 15:50 by Gene Forbes DO) Cellulitis Cellulitis Diabetes mellitus Diabetic neuropathy DNR (do not resuscitate) From [facility] paperwork. History of cataract Hyperlipidemia Hypertension Metabolic encephalopathy Parkinson's disease Sepsis UTI (urinary tract infection) Surgical History History of hand surgery Family History Other Cancer Diabetes Social History Smoking and tobacco/nicotine status: never used tobacco/nicotine Alcohol intake: never Substance/Drug Use: never Data Anesthesia 09/07/23 04:36 09/07/23 04:36 Short CBC 09/06/23 09/07/23 Range/Units 14:01 04:36 WBC 14.50 H 12.42 H (3.29-11.43) 10^3/uL Hgb 11.40 9.60 L (11.27-16.99) g/dL Hct 35.6 L 30.1 L (36-47) % MCV 88.1 87.5 (85-98) fl Plt Count 250 228 (157-399) 10^3/cmm Neut % (Auto) 90.4 87.7 % Neut # (Auto) 13.12 H 10.89 H (1.8-7.7) 10^3/uL BMP 09/06/23 09/07/23 14:01 04:36 Sodium 128 L 133 L Potassium 4.2 4.0 Chloride 88 L 96 L Carbon Dioxide 30 H 26 BUN 35 H 35 H Creatinine 1.6 H 1.5 H Glucose 185 H 135 H Calcium 8.9 8.2 L Liver Function 09/06/23 Range/Units 14:01 Total Bilirubin 0.4 (0.15-1.2) mg/dL AST 7 (0-32) U/L ALT < 5 (0-33) U/L Alkaline Phosphatase 121 H (35-105) U/L Albumin 3.0 L (3.5-5.2) g/dL Urine 09/06/23 Range/Units 12:48 Urine Color Yellow (Yellow) Urine Appearance Cloudy A (CLEAR) Urine pH 8 H (5-7) Ur Specific [place] 1.005 (1.005-1.030) Urine Protein Trace (Negative) Urine Glucose (UA) Norm (Normal) Urine Ketones Negative (Negative) Urine Nitrate Negative (Negative) Urine Bilirubin Neg (Negative) Ur Leukocyte Esterase 2+ H (Negative) Urine RBC 0-4 H (0-2) /hpf Urine WBC 15-25 H (0-5) /hpf Coags 09/06/23 14:01 C-Reactive Protein 293.4 H Microbiology 09/06/23 14:36 Blood Culture - Preliminary Blood SPECIMEN COLLECTED 09/06/23 14:29 Blood Culture - Preliminary Blood SPECIMEN COLLECTED Cardiac Studies: No Data to Display
--- NOTE | 2023-09-07 06:52 | W.PM.OPSUD ---
Surgery/Procedure H&P Update DATE OF PROCEDURE: September 07, 2023 DATE H&P PERFORMED: 09/07/23 H&P UPDATE INFORMATION: I have reviewed H&P completed within last 30 days, I have examined patient prior to procedure, No changes to prior documentation and H&P is in [facility] EMR on date indicated PLANNED PROCEDURE: Operation Date: 09/07/23 07:00 Proposed Procedures p Debridement Sacral(Not Applicable) - Cristian Melara MD
[2023-09-07] MEDS: sodium chloride 0.9% 1,000 ML 30 ML IV (06:59)
[2023-09-07 07:09] LABS: Glucose Point of Care 161 mg/dL (70-110)
[2023-09-07] MEDS: BUPivacaine 0.25% INJ 10 mL INJECTION (07:30)
[2023-09-07] MEDS: lidocaine-epi 1% PF 1:200,000 30 mL SDV INJECTION (07:30)
--- NOTE | 2023-09-07 08:02 | P.OP_ITS ---
Operative Report Date of procedure: September 07, 2023 Pre-op diagnosis: Sacral decubitus ulcer Post-op diagnosis: Infected sacral decubitus ulcer Procedure done: Debridement and washout of sacral decubitus ulcer Specimens removed/disposition: Necrotic tissue, wound cultures Surgeon: Cristian Melara MD Financial Sales Associate: LANDEN OR Staff Complications: none Findings: There was a large decubitus ulcer, covered with eschar. After unroofing and debridement wound measure 10 x 6 x 5 cm. Brief History: 63-year-old female long-term resident with Parkinson disease who presents with a worsening sacral decubitus ulcer. After discussion of risk and benefits with decided to proceed for debridement of the sacral decubitus ulcer. Procedure: Patient was brought into the OR, mother anesthesia sedation was given, patient was placed in the left lateral decubitus position. The skin was prepped and draped in the usual sterile fashion. Timeout was conducted. I then proceeded to remove the scar overlying the sacral decubitus ulcer, after eschar was co mpletely excised with sharp dissection with knife, purulent material was evacuated from the underlying tissue, wound cultures were taken. The wound was noted to be tunneling on the cranial direction about 2 to 3 cm, I therefore decided to unroofed this region with a scalpel. I then proceeded with sharp debridement of the necrotic tissue at the base of the ulcer, this was subsequently followed with Currette debridement of the base of the ulcer until healthy bleeding tissue was visualized. The wound was noted to track all the way down to the bone. Minimal oozing was noted from the base of the wound, at this level there was a still minimal amount of necrotic tissue that could not be excised due to concern for bleeding. #3-0 Vicryl was then used at this level to provide hemostasis. The wound was then washed with Pulsavac using about 2 L of saline. The final measurements of the wound were 10 x 5 x 6 cm. Hemostatic agent was placed on the base of the wound. The wound was then packed with Kerlix and a sterile dressing was applied. The patient tolerated well the procedure. At the end of the procedure all counts were correct. The patient was waken up and transferred to the PACU in stable condition.
--- NOTE | 2023-09-07 08:11 | PM.MISC ---
Miscellaneous Note Purpose of Documentation: Update on patient care Note: Patient was taken this morning for debridement of sacral decubitus ulcer, extensive debridement show evidence of a stage IV sacral decubitus ulcer measuring 10 x 6 x 5 cm. There was significant purulence at the base of the wound, wound was divided to healthy bleeding tissue minimal amount of devitalized tissue remaining at the base of the wound. Patient will require daily wound care with wet-to-dry packing. After being discharged from the hospital patient will require referral to the wound care center to continue wound care to allow healing of the wound.
--- NOTE | 2023-09-07 08:20 | ANE.PACU2 ---
Inpatient post-anesthesia follow up: Airway intact: Yes Vital signs: Temperature 98.6 F Pulse Rate 71 Respiratory Rate 19 Blood Pressure 93/51 Pulse Oximetry 96 Oxygen Delivery Me thod [ Nasal Cannula Current Rate & Del lee] Oxygen Delivery Me thod Nasal Cannula Oxygen Flow Rate [ Current Rate 2 & Delivery] Oxygen Flow Rate 3 Fraction of Inspir ed Oxygen Hydration adequate: Yes Nausea and vomiting: No Pain level: 1 Mental status: Baseline
[2023-09-07] MEDS: gabapentin 300 mg Capsule 600 MG PO ×2 (10:20→17:23)
[2023-09-07] MEDS: docusate sodium 100 mg Capsule PO (10:20)
[2023-09-07] MEDS: sodium chloride 0.9% 1,000 ML 100 ML IV (10:21)
[2023-09-07] MEDS: vancomycin 1,250 MG/250 ML PIGGYBACK 250 MG IV (10:25)
[2023-09-07 10:29] LABS: Thyroid Stimulating Hormone 1.14 uIU/mL (0.27-4.20)
[2023-09-07 10:39] LABS: Iron 23 ug/dL (37-145); Percent Saturation 21.1 % (20-50); Total Iron Binding Capacity 109 mcg/dl; Unsaturated Iron Binding 86 ug/dL (112-347); Vitamin B12 150 pg/mL (232-1245)
[2023-09-07 11:54] LABS: Glucose Point of Care 212 mg/dL (70-110)
--- NOTE | 2023-09-07 12:32 | PC.SOCIAL ---
PG 2 IMM Explained to pt Pg 2 IMM. No questions voiced. Provided pt a copy. Initialed, dated, & timed a copy & placed in chart.
[2023-09-07] MEDS: gabapentin 400 mg Capsule 800 MG PO (12:56)
[2023-09-07] MEDS: piperacillin-tazobactam 3.375 GM in sodium chloride 0.9% (plus) 50 ML IV ×2 (12:56→20:21)
[2023-09-07] MEDS: cyanocobalamin 1,000 mcg/mL SDV 1000 MCG IM (12:57)
[2023-09-07] MEDS: carbidopa-levodopa 25-100mg Tablet 2 EACH PO ×2 (13:07→16:21)
[2023-09-07] MEDS: insulin lispro 100 unit/1 mL SUBCUT ×3 (13:08→21:30)
--- NOTE | 2023-09-07 14:27 | PM.PN ---
Subjective Subjective: Hospital course, labs appreciated. Examination patient seen postoperatively. She underwent decubitus debridement today. Patient denies any nausea, vomiting, headache. States pain is controlled for now. Able to sleep at night. Has remained hemodynamically stable and afebrile. Blood work appreciated for white count trending down to 12.4, hemoglobin trending down from 9.6, CMP showing slight improvement in creatinine down to 1.5 with sodium improving up to 133 Vitals/I&O/Wt Last Vital Signs Temp 97.9 F 09/07/23 12:30 Pulse 84 09/07/23 12:30 Resp 17 09/07/23 12:30 BP 134/75 09/07/23 12:30 Pulse Ox 98 09/07/23 12:30 O2 Del Method Nasal Cannula 09/07/23 12:30 O2 Flow Rate 3 09/07/23 08:19 09/06/23 09/07/23 09/07/23 22:59 06:59 14:59 Intake Total 420 / 420 350 / 350 Output Total 5 / 5 Balance 420 / 420 345 / 345 Weight last 48 hrs Weight 131.542 kg Physical Exam Narrative: General: No acute distress, AO x3, NC oxygen supplementation HEENT: PERRLA, pupils bilaterally equal and reactive Chest: Normal vesicular breath sounds over lower lung denise with occasional rhonchi CVS: S1-S2 regular, no murmurs, no tachycardia, no gallops, no rubs Abdomen: Soft, nontender, no organomegaly, bowel sounds present, morbidly obese Neuro: No focal deficits, no facial deformity, AO x3, power 5/5 in all limbs Skin/back: Surgically bandaged decubitus Data 09/07/23 04:36 09/07/23 04:36 Micro: Microbiology 09/06/23 12:48 Urine Culture - Preliminary Urine,Clean Catch Gram Negative Rods 09/06/23 14:36 Blood Culture - Preliminary Blood SPECIMEN COLLECTED 09/06/23 14:29 Blood Culture - Preliminary Blood SPECIMEN COLLECTED A&P Assessment and plan (1) Sacral decubitus ulcer, stage IV: Postdebridement day 0. Appreciate surgical recommendations. Wound care as per surgical team. Start patient on IV vancomycin and Zosyn. Follow-up OR cultures, blood cultures. Check MRSA swab. (2) Acute kidney injury: Baseline creatinine around 1.1. Medical reconciliation done for nephrotoxic drugs. Most likely in setting of UTI and dehydration. Change fluids to NS at 100 cc/h. Strict input output charting. Recheck BMP in AM. Appreciate electrolytes. (3) UTI (urinary tract infection): Follow-up urine culture. So far growing gram-negative rods. Zosyn as above. (4) Hypertension: Goal blood pressure less than 140/90 mmHg. Takes losartan 25 mg daily at home. Currently on hold. Continue to monitor and restart accordingly. (5) Yeast dermatitis: Patient was on Diflucan 200 mg orally at [facility]. Will change to IV due to the severity of cellulitis and possibly in urine and even in sacral decub. Will finish a 5-day course. (6) Diabetes mellitus: Check A1c. Start on insulin sliding scale at low-dose protocol. (7) shelter resident: (8) DNR (do not resuscitate): Found on [facility] paperwork. Confirmed with patient. She states her sister would be the DPOA. Agreeable with DNR/DNI. (9) Parkinson's disease: Continue doses of home Sinemet (10) B12 deficiency: Check vitamin B12 and folate levels. Restart on vitamin B12 supplementation as per levels. Plan DNR/DNI Carb consistent diet Lovenox for DVT prophylaxis Famotidine for PUD prophylaxis. Attestations Medical Necessity Statement*: Requires further hospitalization for management of infected decubitus ulcer, postdebridement, acute kidney injury Diagnoses Sacral decubitus ulcer, stage IV L89.154 Acute kidney injury N17.9 UTI (urinary tract infection) N39.0 Hypertension I10 Yeast dermatitis B37.2 Diabetes mellitus E11.9 shelter resident Z59.3 DNR (do not resuscitate) Z66 Parkinson's disease G20 B12 deficiency E53.8
[2023-09-07] MEDS: sodium chloride 0.9% 500 ML 999 ML IV (16:19)
[2023-09-07] MEDS: enoxaparin 40 mg/0.4 mL Syringe SUBCUT (16:22)
[2023-09-07 16:31] LABS: Glucose Point of Care 157 mg/dL (70-110)
[2023-09-07] MEDS: fluconazole premix 200 MG/100 ML PREMIX 100 MG IV (17:24)
[2023-09-07] MEDS: HYDROcodone-acetaminophen 5-325 mg Tablet 1 TAB PO (18:57)
[2023-09-07] MEDS: carbidopa-levodopa 25-100mg Tablet 1 EACH PO (20:21)
[2023-09-07 21:15] LABS: Glucose Point of Care 180 mg/dL (70-110)
[2023-09-08] VITALS (8 sets, daily range): BP systolic 93–117; BP diastolic 51–61; PULSE 71–83; RESP 18–20; TEMP 36.1–37.2; O2SAT 90–98
[2023-09-08] MEDS: sodium chloride 0.9% 500 ML 999 ML IV (00:16)
[2023-09-08] MEDS: sodium chloride 0.9% 1,000 ML 100 ML IV ×2 (00:53→10:24)
[2023-09-08] MEDS: piperacillin-tazobactam 3.375 GM in sodium chloride 0.9% (plus) 50 ML IV ×3 (05:07→21:54)
[2023-09-08 05:33] LABS: Basophils % 0.4 %; Eosinophils # 0.4 10^3/uL (0.0-0.8); Eosinophils % 3.7 %; Hematocrit 27.6 % (36-47); Lymphocytes # 0.8 10^3/uL (0.8-4.8); Lymphocytes % 8.1 %; Mean Corpuscular HGB Conc 31.5 g/dL (30-55); Mean Corpuscular Hemoglobin 28.1 pg (27-33); Mean Platelet Volume 8.7 fL (7.4-10.4); Monocytes # 0.5 10^3/uL (0.2-0.9); Monocytes % 4.5 %; Neutrophils # 8.25 10^3/uL (1.8-7.7); Neutrophils % 81.9 %; Nucleated Red Blood Cells % 0 %; Platelet Count 235 10^3/cmm (157-399); Red Cell Distribution Width 14.7 % (12.1-15.1); White Blood Count 10.06 10^3/uL (3.29-11.43)
[2023-09-08 05:42] LABS: Estmated Average Glucose 154
[2023-09-08 05:49] LABS: Chol HDL Ratio 4.24 mg/dL (0.0-4.40); Cholesterol 140 mg/dL (0-200); HDL Cholesterol 33 mg/dL (60-100); LDL Cholesterol Calculated 86 mg/dL (50-129); Magnesium 1.6 mg/dL (1.7-2.3); Phosphorus 3.2 mg/dL (2.5-4.5); Triglycerides 105 mg/dL (0-150); VLDL Cholestrol Calculation 21 mg/dL (0-30)
[2023-09-08 05:51] LABS: Alanine Aminotransferase < 5 U/L (0-33); Albumin Level 2.3 g/dL (3.5-5.2); Alkaline Phosphatase 92 U/L (35-105); Anion Gap 14.2 (5-19); Aspartate Amino Transferase 7 U/L (0-32); Blood Urea Nitrogen 29 mg/dL (8-23); Calcium 8.1 mg/dL (8.5-10.5); Carbon Dioxide 25 mmol/L (22-29); Chloride 101 mmol/L (98-107); Globulin 3.1 g/dL (1.3-4.6); Glomerular Filtration Rate 37.9 mL/min (90-130); Glucose 113 mg/dL (65-115); Osmolality Calculated 291 mOsm/kg (285-295); Potassium 3.2 mmol/L (3.5-5.1); Sodium 137 mmol/L (136-145); Total Bilirubin 0.2 mg/dL (0.15-1.2); Total Protein 5.4 g/dL (6.6-8.7)
[2023-09-08 06:08] LABS: Folate Level 4.7 ng/mL (4.8-37.3)
[2023-09-08 07:00] LABS: Glucose Point of Care 121 mg/dL (70-110)
[2023-09-08] MEDS: HYDROmorphone 1 mg/mL INJ 1 mL 0.5 MG IVP (07:38)
--- NOTE | 2023-09-08 08:11 | P.PN_ITS ---
Subjective Subjective: Patient doing well, white count has improved. Currently asymptomatic, only complaint is pain in the surgical site with dressing change. Vitals/I&O/Wt Last Vital Signs Temp 97.0 F L 09/08/23 07:35 Pulse 77 09/08/23 07:35 Resp 20 H 09/08/23 07:38 BP 104/51 09/08/23 07:35 Pulse Ox 97 09/08/23 07:35 O2 Del Method Nasal Cannula 09/08/23 07:35 O2 Flow Rate 2 09/07/23 20:00 09/07/23 09/08/23 09/08/23 22:59 06:59 14:59 Intake Total 3249.5 / 3599.5 550 / 4149.5 Balance 3249.5 / 3594.5 550 / 4144.5 Weight last 48 hrs Weight 290 lb Physical Exam Back/Pelvis: OTHER: On the sacral region there is a 10 x 6 x 5 cm wound with devitalized tissue at the base near the area of the sacrum the glaser of the wound appear to be healthy, dressing change was done alginate dressing was placed on the base and cover with dry dressing and ABD pads. Data 09/08/23 04:32 09/08/23 04:32 Micro: Microbiology 09/07/23 07:30 Gram Stain - Final Buttock 09/06/23 14:36 Blood Culture - Preliminary Blood NEGATIVE TO DATE 09/06/23 14:29 Blood Culture - Preliminary Blood NEGATIVE TO DATE 09/06/23 12:48 Urine Culture - Preliminary Urine,Clean Catch Gram Negative Rods A&P Assessment and plan (1) Sacral decubitus ulcer, stage IV: Plan Patient has a stage IV sacral decubitus ulcer status postdebridement. Her clinical progress is good. Patient will require long-term wound care. At this point my recommendations are to follow him. ? Daily wound care with Santyl at the base of the wound and then followed by dry dressing and gauze. ? Follow-up with wound care center as outpatient for continues sequential debridement of the wound to allow for proper healing. ? Continue position change every 2 hours, avoid contamination with urine or stool of the wound. ? Wound care can be done by nursing staff starting tomorrow. Attestations Medical Necessity Statement*: Patient will require 24 to 48 hours more of hospital stay for infected sacral decubitus ulcer. Coding Level of Care Code Acute Code for [facility] Fwd Diagnoses Sacral decubitus ulcer, stage IV L89.154
[2023-09-08] MEDS: citalopram 20 mg Tablet PO (08:47)
[2023-09-08] MEDS: aspirin 81 mg EC Tablet PO (08:48)
[2023-09-08] MEDS: carbidopa-levodopa 25-100mg Tablet 2 EACH PO ×3 (08:48→18:13)
[2023-09-08] MEDS: gabapentin 300 mg Capsule 600 MG PO ×2 (08:48→18:06)
[2023-09-08] MEDS: docusate sodium 100 mg Capsule PO ×2 (08:48→18:06)
[2023-09-08] MEDS: cyanocobalamin 1,000 mcg/mL SDV 1000 MCG IM (08:48)
[2023-09-08] MEDS: vancomycin 1,250 MG/250 ML PIGGYBACK 250 MG IV (10:24)
[2023-09-08] MEDS: potassium chloride ER 20 mEq Tablet 40 MEQ PO (10:25)
[2023-09-08] MEDS: magnesium hydroxide 30 mL UDC PO (10:25)
[2023-09-08 12:27] LABS: Glucose Point of Care 157 mg/dL (70-110)
[2023-09-08] MEDS: albumin 25 G/100 ML VIAL IV ×2 (12:36→21:53)
[2023-09-08] MEDS: insulin lispro 100 unit/1 mL SUBCUT ×3 (12:58→21:20)
[2023-09-08] MEDS: gabapentin 400 mg Capsule 800 MG PO (12:59)
[2023-09-08 16:19] LABS: Glucose Point of Care 167 mg/dL (70-110)
--- NOTE | 2023-09-08 16:24 | P.PN_ITS ---
Subjective Subjective: No acute events overnight. Patient has remained hemodynamically stable and afebrile. Denies any nausea, vomiting, headache. Has not had a bowel movement for last few days. Repeatedly requesting for a Townsend catheter. Discussed in detail that unfortunately Townsend catheter would put her at a higher risk of a urinary infection so we would like to hold off as much as possible. Blood work appreciated for white count of 10.6 which is trending down, slight decline in hemoglobin down to 8.7, CMP showing improvement in creatinine down to 1.4, potassium of 3.2, hypomagnesemia 1.6 Vitals/I&O/Wt Last Vital Signs Temp 97.5 F L 09/08/23 12:00 Pulse 83 09/08/23 12:00 Resp 20 H 09/08/23 12:00 BP 111/58 09/08/23 12:00 Pulse Ox 94 09/08/23 12:00 O2 Del Method Nasal Cannula 09/08/23 12:00 O2 Flow Rate 2 09/08/23 08:00 09/08/23 09/08/23 09/08/23 06:59 14:59 22:59 Intake Total 550 / 4149.5 1832.917 / 1832.917 0 / 1832.917 Balance 550 / 4144.5 1832.917 / 1832.917 0 / 1832.917 Physical Exam Narrative: General: No acute distress, AO x3, NC oxygen supplementation HEENT: PERRLA, pupils bilaterally equal and reactive Chest: Normal vesicular breath sounds over lower lung denise with occasional rhonchi CVS: S1-S2 regular, no murmurs, no tachycardia, no gallops, no rubs Abdomen: Soft, nontender, no organomegaly, bowel sounds present, morbidly obese Neuro: No focal deficits, no facial deformity, AO x3, power 5/5 in all limbs Skin/back: Surgically bandaged decubitus Data 09/08/23 04:32 09/08/23 04:32 Micro: Microbiology 09/07/23 07:30 Gram Stain - Final Buttock Anaerobic Culture - Preliminary Wound Culture - Preliminary Gram Negative Rods 09/06/23 12:48 Urine Culture - Final Urine,Clean Catch Escherichia coli 09/06/23 14:36 Blood Culture - Preliminary Blood NEGATIVE TO DATE 09/06/23 14:29 Blood Culture - Preliminary Blood NEGATIVE TO DATE A&P Assessment and plan (1) Sacral decubitus ulcer, stage IV: Postdebridement day 1. Appreciate surgical recommendations. Wound care as per surgical team. Continue with IV vancomycin and Zosyn. OR cultures growing gram-negative rods, blood culture negative, urine culture growing E. coli. We will continue to follow-up cultures and de-escalate antibiotics accordingly. (2) Acute kidney injury: Baseline creatinine around 1.1. Creatinine trending down very gradually. Medical reconciliation done for nephrotoxic drugs. Most likely in setting of UTI and dehydration. Change fluids to NS at 100 cc/h. Strict input output charting. Recheck BMP in AM. Appreciate electrolytes. Replete potassium and magnesium. (3) UTI (urinary tract infection): Urine culture growing E. coli. Sensitivities appreciated. Continue with Zosyn as above. (4) Hypertension: Goal blood pressure less than 140/90 mmHg. Takes losartan 25 mg daily at home. Currently on hold. Blood pressure stable. Continue to monitor and restart accordingly. (5) Yeast dermatitis: Patient was on Diflucan 200 mg orally at [facility]. Will change to IV due to the severity of cellulitis and possibly in urine and even in sacral decub. Will finish a 5-day course. (6) Diabetes mellitus: Appreciate A1c. Continue with insulin sliding scale at low-dose protocol. (7) [facility] resident: (8) DNR (do not resuscitate): Found on [facility] paperwork. Confirmed with patient. She states her sister would be the DPOA. Agreeable with DNR/DNI. (9) Parkinson's disease: Continue doses of home Sinemet (10) B12 deficiency: Severe vitamin B12 and folate deficiency. Continue with vitamin B12 1000 mcg IM daily, start on oral folic acid 1 g twice daily. Plan Aggressive bowel regimen. DNR/DNI Carb consistent diet Lovenox for DVT prophylaxis Famotidine for PUD prophylaxis. Attestations Medical Necessity Statement*: Requires further hospitalization in setting of decubitus ulcer postdebridement while OR cultures are followed, MAN Diagnoses Sacral decubitus ulcer, stage IV L89.154 Acute kidney injury N17.9 UTI (urinary tract infection) N39.0 Hypertension I10 Yeast dermatitis B37.2 Diabetes mellitus E11.9 [facility] resident Z59.3 DNR (do not resuscitate) Z66 Parkinson's disease G20 B12 deficiency E53.8
[2023-09-08] MEDS: folic acid 1 mg Tablet PO (18:06)
[2023-09-08] MEDS: enoxaparin 40 mg/0.4 mL Syringe SUBCUT (18:12)
[2023-09-08] MEDS: fluconazole premix 200 MG/100 ML PREMIX 100 MG IV (19:45)
[2023-09-08 20:22] LABS: Glucose Point of Care 159 mg/dL (70-110)
[2023-09-08] MEDS: carbidopa-levodopa 25-100mg Tablet 1 EACH PO (21:20)
--- NOTE | 2023-09-08 23:15 | PC.NURSE ---
pt was incontince so could not get accurate out put
[2023-09-09] VITALS (7 sets, daily range): BP systolic 110–149; BP diastolic 60–75; PULSE 70–82; RESP 16–18; TEMP 36.4–37.2; O2SAT 94–100
--- NOTE | 2023-09-09 05:01 | PC.NURSE ---
pt was incontince and is on bedrest
[2023-09-09 05:03] LABS: Basophils # 0.1 10^3/uL (0.0-0.1); Basophils % 0.7 %; Eosinophils # 0.4 10^3/uL (0.0-0.8); Eosinophils % 5.3 %; Hematocrit 30.6 % (36-47); Lymphocytes # 0.8 10^3/uL (0.8-4.8); Lymphocytes % 10.8 %; Mean Corpuscular HGB Conc 30.7 g/dL (30-55); Mean Corpuscular Hemoglobin 27.7 pg (27-33); Mean Corpuscular Volume 90.3 fl (85-98); Mean Platelet Volume 8.6 fL (7.4-10.4); Monocytes # 0.3 10^3/uL (0.2-0.9); Monocytes % 4.3 %; Neutrophils % 77.4 %; Nucleated Red Blood Cells % 0 %; Platelet Count 259 10^3/cmm (157-399); Red Blood Count 3.39 10^6/uL (3.85-5.65); Red Cell Distribution Width 14.7 % (12.1-15.1); White Blood Count 7.23 10^3/uL (3.29-11.43)
[2023-09-09] MEDS: piperacillin-tazobactam 3.375 GM in sodium chloride 0.9% (plus) 50 ML IV ×3 (05:20→23:18)
[2023-09-09] MEDS: sodium chloride 0.9% 1,000 ML 100 ML IV ×2 (05:22→20:31)
[2023-09-09] MEDS: albumin 25 G/100 ML VIAL IV ×3 (05:22→20:36)
[2023-09-09 05:29] LABS: Magnesium 1.8 mg/dL (1.7-2.3)
[2023-09-09] MEDS: citalopram 20 mg Tablet PO (06:21)
[2023-09-09 07:30] LABS: Glucose Point of Care 125 mg/dL (70-110)
[2023-09-09] MEDS: HYDROcodone-acetaminophen 5-325 mg Tablet 1 TAB PO (08:19)
[2023-09-09] MEDS: folic acid 1 mg Tablet PO ×2 (09:37→17:55)
[2023-09-09] MEDS: gabapentin 300 mg Capsule 600 MG PO ×2 (09:37→17:55)
[2023-09-09] MEDS: aspirin 81 mg EC Tablet PO (09:37)
[2023-09-09] MEDS: docusate sodium 100 mg Capsule PO ×2 (09:37→17:55)
[2023-09-09] MEDS: vancomycin 1,250 MG/250 ML PIGGYBACK 250 MG IV (09:38)
[2023-09-09] MEDS: carbidopa-levodopa 25-100mg Tablet 1 EACH PO (09:50)
[2023-09-09] MEDS: carbidopa-levodopa 25-100mg Tablet 2 EACH PO ×3 (10:10→15:40)
[2023-09-09] MEDS: cyanocobalamin 1,000 mcg/mL SDV 1000 MCG IM (10:11)
[2023-09-09] MEDS: magnesium hydroxide 30 mL UDC PO (10:32)
[2023-09-09 10:54] LABS: Alanine Aminotransferase < 5 U/L (0-33); Alkaline Phosphatase 87 U/L (35-105); Anion Gap 18.8 (5-19); Aspartate Amino Transferase 8 U/L (0-32); Blood Urea Nitrogen 19 mg/dL (8-23); Calcium 8.6 mg/dL (8.5-10.5); Carbon Dioxide 25 mmol/L (22-29); Chloride 100 mmol/L (98-107); Globulin 2.6 g/dL (1.3-4.6); Glucose 132 mg/dL (65-115); Osmolality Calculated 294 mOsm/kg (285-295); Potassium 3.8 mmol/L (3.5-5.1); Sodium 140 mmol/L (136-145); Total Bilirubin 0.3 mg/dL (0.15-1.2); Total Protein 5.6 g/dL (6.6-8.7)
[2023-09-09 11:04] LABS: Glucose Point of Care 166 mg/dL (70-110)
[2023-09-09] MEDS: collagenase oint 30 gm 1 APPLIC TOPICAL (11:58)
[2023-09-09] MEDS: insulin lispro 100 unit/1 mL SUBCUT (12:24)
[2023-09-09] MEDS: gabapentin 400 mg Capsule 800 MG PO (12:25)
--- NOTE | 2023-09-09 12:39 | PM.PN ---
Subjective Subjective: no acute events overnight. She denies any nausea vomiting, headache. Patient continues to refuse stool softeners as she is worried about bowel movements. Blood work today shows stable CBC with hemoglobin of 9.4, CMP showing improvement in creatinine down to 1.1, sodium of 140 Vitals/I&O/Wt Last Vital Signs Temp 98 F 09/09/23 11:15 Pulse 77 09/09/23 11:15 Resp 16 09/09/23 11:15 BP 135/71 09/09/23 11:15 Pulse Ox 97 09/09/23 11:15 O2 Del Method Nasal Cannula 09/09/23 07:32 O2 Flow Rate 2 09/09/23 07:32 09/08/23 09/09/23 09/09/23 22:59 06:59 14:59 Intake Total 1281.041 / 3113.958 481.667 / 3595.625 400 / 400 Balance 1281.041 / 3113.958 481.667 / 3595.625 400 / 400 Physical Exam Narrative: General: No acute distress, AO x3, NC oxygen supplementation HEENT: PERRLA, pupils bilaterally equal and reactive Chest: Normal vesicular breath sounds over lower lung denise with occasional rhonchi CVS: S1-S2 regular, no murmurs, no tachycardia, no gallops, no rubs Abdomen: Soft, nontender, no organomegaly, bowel sounds present, morbidly obese Neuro: No focal deficits, no facial deformity, AO x3, power 5/5 in all limbs Skin/back: Surgically bandaged decubitus Data 09/09/23 04:30 09/09/23 04:30 Micro: Microbiology 09/07/23 07:30 Gram Stain - Final Buttock Anaerobic Culture - Preliminary Wound Culture - Final Proteus mirabilis 09/06/23 12:48 Urine Culture - Final Urine,Clean Catch Escherichia coli A&P Assessment and plan (1) Sacral decubitus ulcer, stage IV: Postdebridement day 2. Appreciate surgical recommendations. Wound care as per surgical team. Wound cultures growing Proteus mirabilis. Sensitivities appreciated. Resistant to Levaquin. Stop vancomycin. Continue Zosyn. Plan to transition to IV ceftriaxone 1 g daily for 10 days on discharge. Plan for PICC line placement (2) Acute kidney injury: Baseline creatinine around 1.1. Creatinine Down to baseline. Medical reconciliation done for nephrotoxic drugs. Most likely in setting of UTI and dehydration. Patient eating appropriately. Stop IV fluids. Strict input output charting. Recheck BMP in AM. Appreciate electrolytes. (3) UTI (urinary tract infection): Urine culture growing E. coli. Sensitivities appreciated. Continue with Zosyn as above. (4) Hypertension: Goal blood pressure less than 140/90 mmHg. Takes losartan 25 mg daily at home. Currently on hold. Blood pressure stable. Continue to monitor and restart accordingly. (5) Yeast dermatitis: Patient was on Diflucan 200 mg orally at [facility]. Will change to IV due to the severity of cellulitis and possibly in urine and even in sacral decub. Will finish a 5-day course. (6) Diabetes mellitus: Appreciate A1c. Continue with insulin sliding scale at low-dose protocol. (7) [facility] resident: (8) DNR (do not resuscitate): Found on [facility] paperwork. Confirmed with patient. She states her sister would be the DPOA. Agreeable with DNR/DNI. (9) Parkinson's disease: Continue doses of home Sinemet (10) B12 deficiency: Severe vitamin B12 and folate deficiency. Continue with vitamin B12 1000 mcg IM daily, start on oral folic acid 1 g twice daily. Plan Aggressive bowel regimen. Counseled patient in details about importance of regular bowel movements. Patient is worried about bowel movements in bed as she is not not at her baseline mobility given her debridement of decub ulcer. Discussed that she can be helped whenever she needs to have a bowel movement and the nursing and ancillary staff well equipped to take care of her. DNR/DNI Carb consistent diet Lovenox for DVT prophylaxis Famotidine for PUD prophylaxis. Discharge plan: Plan to discharge back to SNF. Awaiting authorization. Patient will need 10 days of IV antibiotics, wound care as an outpatient. Attestations Medical Necessity Statement*: Requires further hospitalization for management of decubitus ulcer postdebridement care of by safe discharge planning is sought, MAN Diagnoses Sacral decubitus ulcer, stage IV L89.154 Acute kidney injury N17.9 UTI (urinary tract infection) N39.0 Hypertension I10 Yeast dermatitis B37.2 Diabetes mellitus E11.9 [facility] resident Z59.3 DNR (do not resuscitate) Z66 Parkinson's disease G20 B12 deficiency E53.8
--- NOTE | 2023-09-09 13:59 | PC.SOCIAL ---
Pg 2 IMM Explained to pt Pg 2 IMM. No questions voiced. Provided pt a copy. Initialed, dated, & timed a copy & placed in chart.
--- NOTE | 2023-09-09 14:00 | PC.NURSE ---
Midline placed to left basilic vein. Referred for midline placement for IV antibiotics x 10 days. Risks and benefits discussed with patient and family and informed consent obtained. Left arm assessed with left basilic vein measuring 4.0 mm, straight, and apparent best choice for placement. Using sterile technique and MST, left basilic vein accessed x 1 stick. Mid-arm circumference measured 10 cm from left AC 32 cm. Trimmed cath 10 cm terminating at axilla with 0 cm external length noted. Line secured with stat-lock. Insertion site covered with Biopatch and TSM. Report given to bedside nurseAntonietta.
[2023-09-09 17:18] LABS: Glucose Point of Care 125 mg/dL (70-110)
[2023-09-09] MEDS: enoxaparin 40 mg/0.4 mL Syringe SUBCUT (17:55)
[2023-09-09] MEDS: nystatin cream 30 gm 1 APPLIC TOPICAL (18:14)
[2023-09-09] MEDS: fluconazole premix 200 MG/100 ML PREMIX 100 MG IV (20:32)
[2023-09-09 21:08] LABS: Glucose Point of Care 100 mg/dL (70-110)
[2023-09-10] VITALS (9 sets, daily range): BP systolic 121–143; BP diastolic 62–71; PULSE 60–89; RESP 16–20; TEMP 36.6–37.7; O2SAT 90–99
[2023-09-10] MEDS: HYDROcodone-acetaminophen 5-325 mg Tablet 1 TAB PO (00:25)
[2023-09-10] MEDS: albumin 25 G/100 ML VIAL IV ×3 (03:48→20:25)
[2023-09-10 05:27] LABS: Alanine Aminotransferase < 5 U/L (0-33); Albumin Level 3.4 g/dL (3.5-5.2); Alkaline Phosphatase 66 U/L (35-105); Anion Gap 17.5 (5-19); Aspartate Amino Transferase 7 U/L (0-32); Blood Urea Nitrogen 10 mg/dL (8-23); Calcium 8.7 mg/dL (8.5-10.5); Carbon Dioxide 25 mmol/L (22-29); Chloride 101 mmol/L (98-107); Creatinine Clr Calc Pharmacy 82.4216; Globulin 2.7 g/dL (1.3-4.6); Glucose 125 mg/dL (65-115); Magnesium 1.6 mg/dL (1.7-2.3); Osmolality Calculated 291 mOsm/kg (285-295); Phosphorus 3.1 mg/dL (2.5-4.5); Potassium 3.5 mmol/L (3.5-5.1); Sodium 140 mmol/L (136-145); Total Bilirubin 0.4 mg/dL (0.15-1.2); Total Protein 6.1 g/dL (6.6-8.7)
[2023-09-10] MEDS: piperacillin-tazobactam 3.375 GM in sodium chloride 0.9% (plus) 50 ML IV ×3 (06:14→21:31)
[2023-09-10] MEDS: sodium chloride 0.9% 1,000 ML 100 ML IV (06:14)
[2023-09-10] MEDS: citalopram 20 mg Tablet PO (06:14)
[2023-09-10 08:01] LABS: Glucose Point of Care 114 mg/dL (70-110)
[2023-09-10] MEDS: gabapentin 300 mg Capsule 600 MG PO ×2 (09:41→17:47)
[2023-09-10] MEDS: docusate sodium 100 mg Capsule PO ×2 (09:41→17:47)
[2023-09-10] MEDS: folic acid 1 mg Tablet PO ×2 (09:42→17:47)
[2023-09-10] MEDS: cyanocobalamin 1,000 mcg/mL SDV 1000 MCG IM (09:42)
[2023-09-10] MEDS: aspirin 81 mg EC Tablet PO (09:42)
[2023-09-10] MEDS: collagenase oint 30 gm 1 APPLIC TOPICAL (09:43)
[2023-09-10] MEDS: nystatin cream 30 gm 1 APPLIC TOPICAL ×2 (09:44→17:51)
[2023-09-10] MEDS: carbidopa-levodopa 25-100mg Tablet 2 EACH PO ×3 (09:49→16:14)
[2023-09-10 11:13] LABS: Glucose Point of Care 157 mg/dL (70-110)
[2023-09-10] MEDS: gabapentin 400 mg Capsule 800 MG PO (11:44)
[2023-09-10] MEDS: insulin lispro 100 unit/1 mL SUBCUT ×3 (11:44→22:15)
--- NOTE | 2023-09-10 12:45 | P.PN_ITS ---
Subjective Subjective: Patient known to my service for a sacral decubitus ulcer status postdebridement. Patient has been stable after debridement, nursing staff has been continuing dressing changes with Santyl to the base and then dry dressing. No signs of persistent infection, no elevated white count. Patient doing well otherwise. Vitals/I&O/Wt Last Vital Signs Temp 98.4 F 09/10/23 12:00 Pulse 60 09/10/23 12:00 Resp 19 H 09/10/23 12:00 BP 127/67 09/10/23 12:00 Pulse Ox 96 09/10/23 12:00 O2 Del Method Nasal Cannula 09/10/23 12:00 O2 Flow Rate 2 09/10/23 12:00 09/09/23 09/10/23 09/10/23 22:59 06:59 14:59 Intake Total 1270 / 1890 1221.667 / 3111.667 50 / 50 Balance 1270 / 1890 1221.667 / 3111.667 50 / 50 Data 09/09/23 04:30 09/10/23 04:40 Micro: Microbiology 09/07/23 07:30 Gram Stain - Final Buttock Anaerobic Culture - Preliminary Wound Culture - Final Proteus mirabilis A&P Assessment and plan (1) Sacral decubitus ulcer, stage IV: Plan Patient is a stable prior to general surgery standpoint, can be discharged once ambulatory wound care Planning is completed. Patient will require continuous daily wound care and sequential debridements at the wound care clinic. All other management per medical team. Attestations Medical Necessity Statement*: Patient is stable from the surgical standpoint, waiting placement. Coding Level of Care Code Acute Code for [facility] Diagnoses Sacral decubitus ulcer, stage IV L89.154
--- NOTE | 2023-09-10 12:55 | P.PN_ITS ---
Subjective Subjective: No acute events overnight. Patient has remained hemodynamically stable and afebrile. Denies any nausea, vomiting, headache. Had couple of bowel movements yesterday but after bowel regimen. She states she is feeling at her baseline. Denies any new complaints. Blood work appreciated for a stable CBC and CMP. Vitals/I&O/Wt Last Vital Signs Temp 98.4 F 09/10/23 12:00 Pulse 60 09/10/23 12:00 Resp 19 H 09/10/23 12:00 BP 127/67 09/10/23 12:00 Pulse Ox 96 09/10/23 12:00 O2 Del Method Nasal Cannula 09/10/23 12:00 O2 Flow Rate 2 09/10/23 12:00 09/09/23 09/10/23 09/10/23 22:59 06:59 14:59 Intake Total 1270 / 1890 1221.667 / 3111.667 170 / 170 Balance 1270 / 1890 1221.667 / 3111.667 170 / 170 Physical Exam Narrative: General: No acute distress, AO x3, NC oxygen supplementation HEENT: PERRLA, pupils bilaterally equal and reactive Chest: Normal vesicular breath sounds over lower lung denise with occasional rhonchi CVS: S1-S2 regular, no murmurs, no tachycardia, no gallops, no rubs Abdomen: Soft, nontender, no organomegaly, bowel sounds present, morbidly obese Neuro: No focal deficits, no facial deformity, AO x3, power 5/5 in all limbs Skin/back: Surgically bandaged decubitus Data 09/09/23 04:30 09/10/23 04:40 Micro: Microbiology 09/07/23 07:30 Gram Stain - Final Buttock Anaerobic Culture - Preliminary Wound Culture - Final Proteus mirabilis A&P Assessment and plan (1) Sacral decubitus ulcer, stage IV: Postdebridement day 2. Appreciate surgical recommendations. Wound care as per surgical team. Wound cultures growing Proteus mirabilis. Sensitivities appreciated. Resistant to Levaquin. Stop vancomycin. Continue Zosyn. Plan to transition to IV ceftriaxone 1 g daily for 10 days on discharge. Plan for PICC line placement (2) Acute kidney injury: Baseline creatinine around 1.1. Creatinine Down to baseline. Medical reconciliation done for nephrotoxic drugs. Most likely in setting of UTI and dehydration. Patient eating appropriately. Stop IV fluids. Strict input output charting. Recheck BMP in AM. Appreciate electrolytes. (3) UTI (urinary tract infection): Urine culture growing E. coli. Sensitivities appreciated. Continue with Zosyn as above. (4) Hypertension: Goal blood pressure less than 140/90 mmHg. Takes losartan 25 mg daily at home. Currently on hold. Blood pressure stable. Continue to monitor and restart accordingly. (5) Yeast dermatitis: Patient was on Diflucan 200 mg orally at [facility]. Will change to IV due to the severity of cellulitis and possibly in urine and even in sacral decub. Will finish a 5-day course. (6) Diabetes mellitus: Appreciate A1c. Continue with insulin sliding scale at low-dose protocol. (7) care home resident: (8) DNR (do not resuscitate): Found on [facility] paperwork. Confirmed with patient. She states her sister would be the DPOA. Agreeable with DNR/DNI. (9) Parkinson's disease: Continue doses of home Sinemet (10) B12 deficiency: Severe vitamin B12 and folate deficiency. Continue with vitamin B12 1000 mcg IM daily, start on oral folic acid 1 g twice daily. Plan Aggressive bowel regimen. Counseled patient in details about importance of regular bowel movements. Patient is worried about bowel movements in bed as she is not not at her baseline mobility given her debridement of decub ulcer. Discussed that she can be helped whenever she needs to have a bowel movement and the nursing and ancillary staff well equipped to take care of her. DNR/DNI Carb consistent diet Lovenox for DVT prophylaxis Famotidine for PUD prophylaxis. Plan for the day: Appreciate urine culture and urine culture. Continue with current and IV antibiotics. Plan to transition to IV ceftriaxone for 10-day course on discharge. Midline placed. Wound care as per surgical team. Continue fluconazole to finish a 5-day course. Last dose 05/11. Continue with nystatin powder twice daily. Stop IV fluids. MAN resolved. Patient having good urine output. Creatinine back to baseline. Appreciate electrolytes. Monitor electrolytes daily for now. Replete potassium as needed. Discharge plan: Plan to discharge back to SNF. Awaiting authorization. Patient will need 10 days of IV antibiotics, wound care as an outpatient. Attestations Medical Necessity Statement*: Requires further hospitalization for management of decubitus ulcer po stdebridement, MAN by safe discharge planning is sought. Diagnoses Sacral decubitus ulcer, stage IV L89.154 Acute kidney injury N17.9 UTI (urinary tract infection) N39.0 Hypertension I10 Yeast dermatitis B37.2 Diabetes mellitus E11.9 care home resident Z59.3 DNR (do not resuscitate) Z66 Parkinson's disease G20 B12 deficiency E53.8
[2023-09-10 14:14] LABS: Methicillin-Resist S.aureu PCR NOT DETECTED (NOT DETECTED)
[2023-09-10] MEDS: enoxaparin 40 mg/0.4 mL Syringe SUBCUT (16:14)
[2023-09-10 17:00] LABS: Glucose Point of Care 204 mg/dL (70-110)
[2023-09-10] MEDS: fluconazole premix 200 MG/100 ML PREMIX 100 MG IV (20:20)
[2023-09-10] MEDS: carbidopa-levodopa 25-100mg Tablet 1 EACH PO (20:29)
[2023-09-10 20:55] LABS: Glucose Point of Care 208 mg/dL (70-110)
[2023-09-11 03:07] VITALS: BP 115/53; PULSE 72; RESP 17; TEMP 37.2; O2SAT 94
[2023-09-11] MEDS: piperacillin-tazobactam 3.375 GM in sodium chloride 0.9% (plus) 50 ML IV ×2 (04:06→13:12)
[2023-09-11] MEDS: albumin 25 G/100 ML VIAL IV (04:09)
[2023-09-11 05:16] LABS: Alanine Aminotransferase < 5 U/L (0-33); Albumin Level 3.7 g/dL (3.5-5.2); Alkaline Phosphatase 69 U/L (35-105); Anion Gap 17.2 (5-19); Aspartate Amino Transferase 7 U/L (0-32); Blood Urea Nitrogen 9 mg/dL (8-23); Calcium 9.1 mg/dL (8.5-10.5); Carbon Dioxide 26 mmol/L (22-29); Chloride 101 mmol/L (98-107); Creatinine Clr Calc Pharmacy 82.4216; Globulin 2.5 g/dL (1.3-4.6); Glucose 134 mg/dL (65-115); Osmolality Calculated 293 mOsm/kg (285-295); Potassium 3.2 mmol/L (3.5-5.1); Sodium 141 mmol/L (136-145); Total Bilirubin 0.6 mg/dL (0.15-1.2); Total Protein 6.2 g/dL (6.6-8.7)
[2023-09-11 06:56] LABS: Glucose Point of Care 158 mg/dL (70-110)
[2023-09-11 07:40] VITALS: BP 151/72; PULSE 80; RESP 18; TEMP 36.8; O2SAT 97
[2023-09-11] MEDS: collagenase oint 30 gm 1 APPLIC TOPICAL (07:52)
[2023-09-11] MEDS: nystatin cream 30 gm 1 APPLIC TOPICAL (07:53)
[2023-09-11 08:00] VITALS: PULSE 80; O2SAT 92
[2023-09-11] MEDS: folic acid 1 mg Tablet PO (08:01)
[2023-09-11] MEDS: citalopram 20 mg Tablet PO (08:01)
[2023-09-11] MEDS: gabapentin 300 mg Capsule 600 MG PO (08:02)
[2023-09-11] MEDS: carbidopa-levodopa 25-100mg Tablet 2 EACH PO ×3 (08:03→16:48)
[2023-09-11] MEDS: docusate sodium 100 mg Capsule PO (08:03)
[2023-09-11] MEDS: HYDROcodone-acetaminophen 5-325 mg Tablet 1 TAB PO (08:04)
[2023-09-11] MEDS: aspirin 81 mg EC Tablet PO (08:05)
[2023-09-11] MEDS: cyclobenzaprine 10 mg Tablet 5 MG PO (08:06)
[2023-09-11] MEDS: insulin lispro 100 unit/1 mL SUBCUT ×2 (08:07→12:32)
[2023-09-11] MEDS: cyanocobalamin 1,000 mcg/mL SDV 1000 MCG IM (08:10)
--- NOTE | 2023-09-11 08:50 | PC.SOCIAL ---
IMM Updated Updated pt on IMM. No questions voiced. Provided pt a copy. Initialed, dated, & timed copy in chart.
--- NOTE | 2023-09-11 10:12 | P.DS_ITS ---
Discharge Providers Date of Admission: 09/06/23 14:43 Date of Discharge: September 11, 2023 Attending Provider at Admission: Gene Forbes DO Attending Provider at Discharge: Griffin Washington MD Primary Care Provider: Berta Barrett MD Diagnoses at Discharge Discharge Diagnosis (1) Sacral decubitus ulcer, stage IV: Status: Acute (2) Acute kidney injury: Status: Acute (3) UTI (urinary tract infection): Status: Acute (4) Hypertension: Status: Acute (5) Yeast dermatitis: Status: Acute (6) Diabetes mellitus: Status: Acute (7) group home resident: Status: Acute (8) DNR (do not resuscitate): Status: Acute Permanent problem details: From [facility] paperwork. (9) Parkinson's disease: Status: Acute (10) B12 deficiency: Status: Acute Reason for Visit Reason for Visit: SORE ON BOTTOM Brief History: History as per HPI: Miguelina Goncalves is a 63 year old female resident at [facility] who is bedridden.? She is transferred to the ER today due to foul-smelling sacral decubitus.? In the emergency room she is found to have an elevated white count, MAN with BUN/creatinine suggestive of some dehydration, extremely elevated CT RP at 293, malnutrition with an albumin of 3.0 and cloudy urine suggestive of a UTI.? Surgery was consulted for wound debridement for the morning. Hospital Course Hospital Course Patient was admitted to the hospital further evaluation and management of infected decubitus ulcer along with acute kidney injury. Surgery was consulted and she underwent debridement on 09/07. She was started on broad-spectrum antibiotics and IV hydration. With hydration her MAN resolved. Hospitalization of blood culture remain negative though urine culture came back positive for E. coli and wound culture came back positive for Proteus mirabilis. Sensitivities are appreciated. Proteus mirabilis if not any oral agent hence decision was made to continue IV antibiotics for 10 more days with end date on 09/16. Midline was placed. Patient's hospitalization was otherwise unremarkable. She is advised to have CMP checked at the end of course of IV antibiotics. She is to continue wound care as put in detail by surgical team. She is to follow- up with surgery as an outpatient. Physical Exam Narrative: General: No acute distress, AO x3, NC oxygen supplementation HEENT: PERRLA, pupils bilaterally equal and reactive Chest: Normal vesicular breath sounds over lower lung denise with occasional rhonchi CVS: S1-S2 regular, no murmurs, no tachycardia, no gallops, no rubs Abdomen: Soft, nontender, no organomegaly, bowel sounds present, morbidly obese Neuro: No focal deficits, no facial deformity, AO x3, power 5/5 in all limbs Skin/back: Surgically bandaged decubitus Discharge Data Studies Completed and Pending Completed Studies During Hospitalization Category Date Time Status Pathology: Surgical [PTH] Routine Pth 09/07/23 08:12 Completed Pending at discharge Category Date Time Status Anaerobic Culture Routine Lab 09/07/23 07:30 Results Blood Culture Stat Lab 09/06/23 14:36 Results Wound Culture and Gram Stain Routine Lab 09/07/23 07:30 Results Laboratory Results WBC 7.23 10^3/uL (3.29-11.43) 09/09/23 04:30 RBC 3.39 10^6/uL (3.85-5.65) L 09/09/23 04:30 Hgb 9.40 g/dL (11.27-16.99) L 09/09/23 04:30 Hct 30.6 % (36-47) L 09/09/23 04:30 MCV 90.3 fl (85-98) 09/09/23 04:30 MCH 27.7 pg (27-33) 09/09/23 04:30 MCHC 30.7 g/dL (30-55) 09/09/23 04:30 RDW 14.7 % (12.1-15.1) 09/09/23 04:30 Plt Count 259 10^3/cmm (157-399) 09/09/23 04:30 MPV 8.6 fL (7.4-10.4) 09/09/23 04:30 Neut % (Auto) 77.4 % 09/09/23 04:30 Lymph % (Auto) 10.8 % 09/09/23 04:30 [place] % (Auto) 4.3 % 09/09/23 04:30 Eos % (Auto) 5.3 % 09/09/23 04:30 Baso % (Auto) 0.7 % 09/09/23 04:30 Neut # (Auto) 5.60 10^3/uL (1.8-7.7) 09/09/23 04:30 Lymph # (Auto) 0.8 10^3/uL (0.8-4.8) 09/09/23 04:30 [place] # (Auto) 0.3 10^3/uL (0.2-0.9) 09/09/23 04:30 Eos # (Auto) 0.4 10^3/uL (0.0-0.8) 09/09/23 04:30 Baso # (Auto) 0.1 10^3/uL (0.0-0.1) 09/09/23 04:30 Nucleated RBC % (auto) 0 % 09/09/23 04:30 Nucleated RBCs # 0.0 /100WBC 09/09/23 04:30 Sodium 141 mmol/L (136-145) 09/11/23 04:35 Potassium 3.2 mmol/L (3.5-5.1) L 09/11/23 04:35 Chloride 101 mmol/L (98-107) 09/11/23 04:35 Carbon Dioxide 26 mmol/L (22-29) 09/11/23 04:35 Anion Gap 17.2 (5-19) 09/11/23 04:35 BUN 9 mg/dL (8-23) 09/11/23 04:35 Creatinine 0.9 mg/dL (0.5-0.9) 09/11/23 04:35 GFR Calculation 63.0 mL/min (90-130) L 09/11/23 04:35 Glucose 134 mg/dL (65-115) H 09/11/23 04:35 POC Glucose 158 mg/dL (70-110) H 09/11/23 06:43 Estimat Average Glucose 154 09/08/23 04:32 Hemoglobin A1c 7.0 % (4.0-6.0) H 09/08/23 04:32 Calculated Osmolality 293 mOsm/kg (285-295) 09/11/23 04:35 Calcium 9.1 mg/dL (8.5-10.5) 09/11/23 04:35 Phosphorus 3.1 mg/dL (2.5-4.5) 09/10/23 04:40 Magnesium 1.6 mg/dL (1.7-2.3) L 09/10/23 04:40 Iron 23 ug/dL (37-145) L 09/07/23 04:36 TIBC 109 mcg/dl 09/07/23 04:36 % Saturation 21.1 % (20-50) 09/07/23 04:36 Unsat Iron Binding 86 ug/dL (112-347) L 09/07/23 04:36 Total Bilirubin 0.6 mg/dL (0.15-1.2) 09/11/23 04:35 AST 7 U/L (0-32) 09/11/23 04:35 ALT < 5 U/L (0-33) 09/11/23 04:35 Alkaline Phosphatase 69 U/L (35-105) 09/11/23 04:35 C-Reactive Protein 293.4 mg/L (0.0-4.9) H 09/06/23 14:01 Total Protein 6.2 g/dL (6.6-8.7) L 09/11/23 04:35 Albumin 3.7 g/dL (3.5-5.2) 09/11/23 04:35 Globulin 2.5 g/dL (1.3-4.6) 09/11/23 04:35 Triglycerides 105 mg/dL (0-150) 09/08/23 04:32 Cholesterol 140 mg/dL (0-200) 09/08/23 04:32 LDL Cholesterol, Calc 86 mg/dL (50-129) 09/08/23 04:32 Total VLDL Cholesterol 21 mg/dL (0-30) 09/08/23 04:32 HDL Cholesterol 33 mg/dL (60-100) L 09/08/23 04:32 Cholesterol/HDL Ratio 4.24 mg/dL (0.0-4.40) 09/08/23 04:32 Vitamin B12 150 pg/mL (232-1245) L 09/07/23 04:36 Folate 4.7 ng/mL (4.8-37.3) L 09/08/23 04:32 Procalcitonin 0.26 ng/mL (0-0.5) 09/06/23 14:01 TSH 1.14 uIU/mL (0.27-4.20) 09/07/23 04:36 Urine Color Yellow (Yellow) 09/06/23 12:48 Urine Appearance Cloudy (CLEAR) A 09/06/23 12:48 Urine pH 8 (5-7) H 09/06/23 12:48 Ur Specific [place] 1.005 (1.005-1.030) 09/06/23 12:48 Urine Protein Trace (Negative) 09/06/23 12:48 Urine Glucose (UA) Norm (Normal) 09/06/23 12:48 Urine Ketones Negative (Negative) 09/06/23 12:48 Urine Blood 2+ (Negative) H 09/06/23 12:48 Urine Nitrate Negative (Negative) 09/06/23 12:48 Urine Bilirubin Neg (Negative) 09/06/23 12:48 Prot Sulfosalicylic Acd Positive (Negative) 09/06/23 12:48 Urine Urobilinogen Norm mg/dL (Negative) 09/06/23 12:48 Ur Leukocyte Esterase 2+ (Negative) H 09/06/23 12:48 Urine RBC 0-4 /hpf (0-2) H 09/06/23 12:48 Urine WBC 15-25 /hpf (0-5) H 09/06/23 12:48 Ur Squamous Epith Cells 5-10 /hpf (0-5) H 09/06/23 12:48 Amorphous Sediment Not Reportable 09/06/23 12:48 Urine Bacteria 3+ /hpf (NONE) H 09/06/23 12:48 MRSA (PCR) Not detected (NOT DETECTED) 09/09/23 08:43 Microbiology 09/07/23 07:30 Buttock Gram Stain - Final 09/07/23 07:30 Buttock Anaerobic Culture - Preliminary 09/07/23 07:30 Buttock Wound Culture - Final Proteus mirabilis 09/06/23 12:48 Urine,Clean Catch Urine Culture - Final Escherichia coli 09/06/23 14:36 Blood Blood Culture - Preliminary NEGATIVE TO DATE 09/06/23 14:29 Blood Blood Culture - Preliminary NEGATIVE TO DATE Vitals Last Vital Signs Temp 98.3 F 09/11/23 07:40 Pulse 80 09/11/23 08:00 Resp 18 09/11/23 07:40 BP 151/72 09/11/23 07:40 Pulse Ox 92 09/11/23 08:00 O2 Del Method Nasal Cannula 09/11/23 08:00 O2 Flow Rate 3 09/11/23 08:00 Discharge Plan Discharge Patient Disposition: Xfer SNF Condition: Stable Prescriptions: New folic acid 1 mg Tablet 1 mg PO BID Qty: 60 0RF cyanocobalamin (vitamin B-12) 1,000 mcg tablet 1,000 mcg PO DAILY Qty: 30 0RF Continued gabapentin 800 mg tablet 800 mg PO DAILY@12 aspirin [Adult Low Dose Aspirin] 81 mg tablet,delayed release (DR/EC) 81 mg PO DAILY@08 (DME) Wheeled walker with seat Large See Rx Instructions .Route .MEDSUPPLY Qty: 1 0RF Rx Instructions: Until no longer needed bisacodyl [Dulcolax (bisacodyl)] 5 mg tablet,delayed release (DR/EC) 10 mg PO DAILY PRN (Reason: Constipation) Rx Instructions: give if no results from mom Fleet Enema 19-7 gram/118 mL enema 118 ml MS DAILY PRN (Reason: Constipation) Rx Instructions: give if no results from mom and dulcolax magnesium hydroxide [Milk of Magnesia] 400 mg/5 mL suspension 30 ml PO DAILY PRN (Reason: Constipation) Rx Instructions: if no bm in 3 days go to dulcolax orders gabapentin 600 mg tablet 600 mg PO BID Qty: 60 10RF cholecalciferol (vitamin D3) [Vitamin D3] 125 mcg (5,000 unit) Tablet 125 mcg PO DAILY@08 bisacodyl [Dulcolax (bisacodyl)] 10 mg Suppository 10 mg MS DAILY PRN (Reason: Constipation) Rx Instructions: if no results from mom acetaminophen [Tylenol] 325 mg Tablet 650 mg PO Q6H PRN (Reason: Pain) carbidopa-levodopa 25-100 mg Tablet 1 tab PO BEDTIME Claritin 10 mg Tablet 10 mg PO DAILY@08 cyclobenzaprine 5 mg tablet 5 mg PO BID PRN (Reason: Muscle Spasm) Sinemet 25-100 mg tablet 2 tab PO TID@08,12,16 losartan 25 mg Tablet 25 mg PO DAILY@08 potassium chloride 20 mEq tablet,ER particles/crystals 40 meq PO DAILY@08 Nizoral A-D 1 % Shampoo See Rx Instructions .ROUTE .COMPLEX Rx Instructions: use as directed topically once a day on mon and thur Tresiba FlexTouch U-100 100 unit/mL (3 mL) insulin pen 35 unit SUBCUT BEDTIME Trulicity 3 mg/0.5 mL pen injector 3 mg SUBCUT Q7D Rx Instructions: on thursday nystatin 100,000 unit/gram powder See Rx Instructions .ROUTE .COMPLEX Rx Instructions: apply as directed topical every shift, cleanse under abdominal folds and r breast with ns dry thoroughly apply nystatin powder and apply wicking cloth diclofenac sodium 1 % gel 1 g TOPICAL TID Rx Instructions: apply to bilateral knees Humalog KwikPen Insulin 100 unit/mL insulin pen See Rx Instructions .ROUTE .COMPLEX Rx Instructions: 12 units subcutaneously with meals and sliding scale with meals if blood sugar is less than 70 call md 150-200=0 units 201-250=2 units 251-300=4 units 301-350=6 units 351-400=8 units if blood sugar is greater than 400 give 8 units- call md call pcp bs <60 and >400 if symptomatic or 3 consecutive reading over 400 hydrocodone-acetaminophen 5-325 mg tablet 1 tab PO TID Changed furosemide 40 mg tablet 40 mg PO DAILY Qty: 14 0RF Discontinued fluconazole 200 mg tablet 200 mg PO DAILY Rx Instructions: end date 09/12/23 metolazone 2.5 mg Tablet 2.5 mg PO DAILY Rx Instructions: give 30 mins after lasix Discharge Orders: Discharge Order (Routine); Ordered 09/11/23 Ordered By: Griffin Washington Referrals: [facility] [Outside] Berta Barrett MD [Primary Care Provider] - 7-10 days WOUND CARE CLINIC, [Staff Physician] - 4-7 days Patient Instructions: Folic Acid (By mouth), Vitamin B-12 (By mouth), Acute Kidney Injury (DC), Debridement (DC), Skin Yeast Infection (ED), Opioid Safety, Decubitus Ulcers Activity Restrictions/Additional Instructions: Last day of antibiotic on 09/16. Continue with IV ceftriaxone 1 g daily till then. Continue with wound care as detailed by surgical team. Follow-up with a primary care provider within next 1 week. Please try to avoid Townsend catheterization, you have daily bowel regimen. Midline should be removed after completion of IV antibiotic course. You should have a repeat CMP done after completion of IV antibiotic course. ? Daily wound care with Santyl at the base of the wound and then followed by dry dressing and gauze. ? Follow-up with wound care center as outpatient for continues sequential debridement of the wound to allow for proper healing. Discharge Attestations Time Spent in Discharge Care*: greater than 30 min Specific Discharge Activities: educating patient, educating and/or supporting family/caregiver, discussing with pcp/other providers, discussing with manager case management/social workers/dc planners, documenting/other paperwork and evaluating patient/reviewing data Status at Discharge: Cognitive status at discharge: cognitively intact , Behavioral status at discharge: cooperative , Functional status at discharge: bed bound , Overall status at discharge: patient is back to baseline Quality Metrics Clinical Quality Measures [ No reported AMI, CVA or VTE this stay] Coding Level of Care Code 90622 Total time (in minutes) for Discharge: 60 Diagnoses Sacral decubitus ulcer, stage IV L89.154 Acute kidney injury N17.9 UTI (urinary tract infection) N39.0 Hypertension I10 Yeast dermatitis B37.2 Diabetes mellitus E11.9 group home resident Z59.3 DNR (do not resuscitate) Z66 Parkinson's disease G20 B12 deficiency E53.8
[2023-09-11 11:37] LABS: Glucose Point of Care 175 mg/dL (70-110)
[2023-09-11 12:15] VITALS: BP 146/60; PULSE 80; RESP 17; TEMP 36.8; O2SAT 94
[2023-09-11] MEDS: potassium chloride ER 20 mEq Tablet 40 MEQ PO (12:28)
[2023-09-11] MEDS: gabapentin 400 mg Capsule 800 MG PO (12:30)
[2023-09-11 14:14] LABS: SARS Covid-2 Antigen negative (Negative)
[2023-09-11 15:46] VITALS: BP 147/66; PULSE 76; RESP 16; TEMP 37.1; O2SAT 97
[2023-09-11] MEDS: enoxaparin 40 mg/0.4 mL Syringe SUBCUT (16:49)
[2023-09-11 17:18] LABS: Glucose Point of Care 146 mg/dL (70-110)
[2023-09-11 17:31] VITALS: BP 147/66; PULSE 76; RESP 16; TEMP 37.1; O2SAT 97
== END 2023-09-11 17:32 | disposition skilled nursing facility (03) | DRG 580 ==
LOC: ER 11:41 → MEDSURG 15:37
PROVIDERS: Surgery; Admitting Provider Internal Medicine; Emergency Provider Internal Medicine; PCP Family Medicine; Visit Provider Student in an Organized Health Care Education/Training Program
PROC: 0QD10ZZ Extraction of Sacrum, Open Approach (ICD-10-PCS; principal; 2023-09-07 07:00)
DX: L89.154 Pressure ulcer of sacral region, stage 4 (principal); N17.9 Acute kidney failure, unspecified; N39.0 Urinary tract infection, site not specified; Z74.01 Bed confinement status; E11.40 Type 2 diabetes mellitus with diabetic neuropathy, unspecified; Z66 Do not resuscitate; E78.5 Hyperlipidemia, unspecified; I10 Essential (primary) hypertension; G20.A1 Parkinson's disease without dyskinesia, without mention of fluctuations; L30.8 Other specified dermatitis; E53.8 Deficiency of other specified B group vitamins; E86.0 Dehydration; B96.20 Unspecified Escherichia coli [E. coli] as the cause of diseases classified elsewhere; B96.4 Proteus (mirabilis) (morganii) as the cause of diseases classified elsewhere
CPT/HCPCS: 36415; 36416; 36569; 36573; 80048; 80053; 80061; 81001; 82607; 82746; 82962; 83036; 83540; 83550; 83735; 84100; 84145; 84443; 85025; 86140; 87040; 87070; 87075; 87077; 87086; 87186; 87205; 87426; 87641; 88304; 96365; 96372; 99285; C1751; J0696; J1100; J1170; J1450; J1650; J1815; J1956; J2371; J2405; J2543; J2704; J3010; J3370; J3420; J3490; J7030; J7040; P9047

== ENCOUNTER → 2023-09-29 13:43 | Day surgery (SDC) | payer MEDICARE, MEDICAID, SELFPAY ==
[2023-09-29 14:05] VITALS: BP 125/87; PULSE 85; RESP 18; TEMP 36.6; O2SAT 96; BMI 45.7
--- NOTE | 2023-09-29 14:09 | XR_ITS ---
WS: [id number] CHEST XRAY TECHNIQUE: Portable chest. CLINICAL INFORMATION: POST PICC PLACEMENT COMPARISON: None. FINDINGS: RIGHT PICC line with tip in the mid SVC. No pneumothorax. Shallow inspiration. A few calcified granulomas. RIGHT reversed TSA. Cardiomegaly. No focal pneumonia or pleural fluid. Osteopenia. IMPRESSION: RIGHT PICC line with tip mid SVC in good position.
== END ==
PROVIDERS: PCP Family Medicine; Visit Provider Family Medicine
DX: L89.154 Pressure ulcer of sacral region, stage 4 (principal)
CPT/HCPCS: 36573; 71045

== ENCOUNTER 2023-10-02 19:06 | Observation (INO) | payer MEDICARE, MEDICAID, SELFPAY ==
[2023-10-02] VITALS (7 sets, daily range): BP systolic 99–138; BP diastolic 42–63; PULSE 68–73; RESP 12–20; TEMP 36.8; O2SAT 94–98; BMI 45.7
--- NOTE | 2023-10-02 19:42 | ED_ITS ---
HPI - Wound/Laceration General: Chief Complaint: Wound/Laceration Stated Complaint: ULCER Time Seen by Provider: 10/02/23 19:41 History of Present Illness: 63-year-old female comes in today from [facility] senior care for concerns of altered mental status. Patient at this time is being treated for chronic wound ulcer to her sacrum. Patient is on prolonged IV antibiotics, ceftriaxone due to a recent hospitalization for urinary tract infection and wound infection. Review of the record noted that patient had E. coli in her urine and Proteus mirabilis in her wound. Patient appears nontoxic. Patient answers questions appropriately. Patient does have occasional twitching but relates that to her Parkinson's disease. When patient was here prior for her urinary tract infection at that time she had MAN. Patient denies any pain except at her wound site. Patient has a history of diabetes mellitus, chronic pain, Parkinson's, high blood pressure and high cholesterol. Patient is DNR status. Associated symptoms: Denies fever(s), nausea or vomiting Review of Systems General: Reports: 10 or more systems reviewed and unremarkable except in HPI and below Const: Denies: fever(s) Card: Denies: chest pain Resp: Denies: dyspnea GI: Denies: nausea or vomiting : Reports: other (Townsend cath in place) Skin/Breast: Reports: other (Chronic wound ulcer) PFSH ED PFSH: Medical History Cellulitis Cellulitis Diabetes mellitus Diabetic neuropathy DNR (do not resuscitate) From [facility] paperwork. History of cataract Hyperlipidemia Hypertension Metabolic encephalopathy Parkinson's disease Sepsis UTI (urinary tract infection) Surgical History History of hand surgery Family History Other Cancer Diabetes Social History Smoking and tobacco/nicotine status: never used tobacco/nicotine Alcohol intake: never Substance/Drug Use: never Physical Exam Const: COMMON NORMALS: alert HENMT: COMMON NORMALS: normocephalic HEAD & SCALP: normocephalic Neck/C-Spine: COMMON NORMALS: full ROM Resp: COMMON NORMALS: normal respiratory effort and clear to auscultation bilaterally AUSCULTATION: clear to auscultation bilaterally Cardio: COMMON NORMALS: regular rate and regular rhythm RATE: regular rate RHYTHM: regular rhythm GI: COMMON NORMALS: Soft to palpation and non-tender PALPATION: Yes Soft to palpation Back/Pelvis: COMMON NORMALS: thoracic and lumbar spine normal to inspection Extremity: COMMON NORMALS: normal to inspection Neuro: SENSORIUM/ORIENTATION: Yes alert Skin: NARRATIVE SKIN EXAM: Wound to the sacrum is packed with wet gauze. Edges are not erythematous. Wound extends from the sacrum into the cleft of the buttocks. Course Vital Signs: Vital signs: Vital Signs Temperature 98.2 F 10/02/23 19:11 Pulse Rate 70 10/03/23 00:07 Respiratory Rate 13 10/03/23 00:07 Blood Pressure 113/49 10/03/23 00:07 Pulse Oximetry 93 10/03/23 00:07 Oxygen Delivery Me thod Room Air 10/02/23 23:31 MDM - Wound/Laceration Medical Decision Making Patient was referred to the emergency department for concerns of altered mental status and evaluation of chronic wound to the buttocks. On exam patient appears nontoxic. No fevers been reported at the senior care. Review of the wound noted a chronic wound ulcer to the buttocks. Vital signs are normal. Differential diagnosis includes not limited to dehydration, sepsis, wound infec tion, urinary tract infection, adverse drug effects. CBC was unremarkable. CMP noted a creatinine of 1.9, and a potassium of 7.7 with recheck. Reviewed this with Dr. Lopez who recommended treatment with calcium gluconate, insulin, and D50 and admit to hospitalist services. Dr. Valencia, hospitalist, agreed to admission of patient. Patient needs admission for monitoring of labs, correction of potassium, and cardiac monitoring. Lab Data 10/02/23 20:20 10/02/23 21:57 Laboratory Results WBC 8.99 10^3/uL (3.29-11.43) 10/02/23 20:20 RBC 3.53 10^6/uL (3.85-5.65) L 10/02/23 20:20 Hgb 9.60 g/dL (11.27-16.99) L 10/02/23 20:20 Hct 32.3 % (36-47) L 10/02/23 20:20 MCV 91.5 fl (85-98) 10/02/23 20:20 MCH 27.2 pg (27-33) 10/02/23 20:20 MCHC 29.7 g/dL (30-55) L 10/02/23 20:20 RDW 16.6 % (12.1-15.1) H 10/02/23 20:20 Plt Count 364 10^3/cmm (157-399) 10/02/23 20:20 MPV 8.3 fL (7.4-10.4) 10/02/23 20:20 Neut % (Auto) 73.5 % 10/02/23 20:20 Lymph % (Auto) 12.7 % 10/02/23 20:20 [place] % (Auto) 5.5 % 10/02/23 20:20 Eos % (Auto) 4.4 % 10/02/23 20:20 Baso % (Auto) 1.2 % 10/02/23 20:20 Neut # (Auto) 6.61 10^3/uL (1.8-7.7) 10/02/23 20:20 Lymph # (Auto) 1.1 10^3/uL (0.8-4.8) 10/02/23 20:20 [place] # (Auto) 0.5 10^3/uL (0.2-0.9) 10/02/23 20:20 Eos # (Auto) 0.4 10^3/uL (0.0-0.8) 10/02/23 20:20 Baso # (Auto) 0.1 10^3/uL (0.0-0.1) 10/02/23 20:20 Nucleated RBC % (auto) 0 % 10/02/23 20:20 Nucleated RBCs # 0.0 /100WBC 10/02/23 20:20 Sodium 130 mmol/L (136-145) L 10/02/23 20:20 Potassium 7.7 mmol/L (3.5-5.1) H* 10/02/23 21:57 Chloride 96 mmol/L (98-107) L 10/02/23 20:20 Carbon Dioxide 26 mmol/L (22-29) 10/02/23 20:20 Anion Gap 15.2 (5-19) 10/02/23 20:20 BUN 29 mg/dL (8-23) H 10/02/23 20:20 Creatinine 1.9 mg/dL (0.5-0.9) H 10/02/23 20:20 GFR Calculation 26.6 mL/min (90-130) L 10/02/23 20:20 Glucose 135 mg/dL (65-115) H 10/02/23 20:20 POC Glucose 162 mg/dL (70-110) H 10/02/23 22:53 Calculated Osmolality 278 mOsm/kg (285-295) L 10/02/23 20:20 Lactic Acid 1.1 mmol/L (0.5-2.2) 10/02/23 20:20 Calcium 9.0 mg/dL (8.5-10.5) 10/02/23 20:20 Total Bilirubin 0.3 mg/dL (0.15-1.2) 10/02/23 20:20 AST 9 U/L (0-32) 10/02/23 20:20 ALT < 5 U/L (0-33) 10/02/23 20:20 Alkaline Phosphatase 149 U/L (35-105) H 10/02/23 20:20 Total Protein 7.3 g/dL (6.6-8.7) 10/02/23 20:20 Albumin 3.1 g/dL (3.5-5.2) L 10/02/23 20:20 Globulin 4.2 g/dL (1.3-4.6) 10/02/23 20:20 Urine Color Yellow (Yellow) 10/02/23 21:01 Urine Appearance Clear (CLEAR) 10/02/23 21:01 Urine pH 5 (5-7) 10/02/23 21:01 Ur Specific [place] 1.020 (1.005-1.030) 10/02/23 21:01 Urine Protein 1+ (Negative) H 10/02/23 21:01 Urine Glucose (UA) Norm (Normal) 10/02/23 21:01 Urine Ketones 1+ (Negative) H 10/02/23 21:01 Urine Blood 2+ (Negative) H 10/02/23 21:01 Urine Nitrate Negative (Negative) 10/02/23 21: Urine Bilirubin 1+ (Negative) H 10/02/23 21:01 Urine Urobilinogen Neg mg/dL (Negative) 10/02/23 21:01 Ur Leukocyte Esterase 2+ (Negative) H 10/02/23 21:01 Urine RBC 0-4 /hpf (0-2) H 10/02/23 21:01 Urine WBC 10-15 /hpf (0-5) H 10/02/23 21:01 Ur Squamous Epith Cells 5-10 /hpf (0-5) H 10/02/23 21:01 Amorphous Sediment Not Reportable 10/02/23 21:01 Urine Bacteria Trace /hpf (NONE) 10/02/23 21:01 Urine Mucus 1+ /hpf 10/02/23 21:01 No radiology studies performed this visit Discharge Plan Discharge Patient Disposition: Admitted As Inpatient Clinical Impression: Acute hyperkalemia, Sacral decubitus ulcer, stage IV Condition: Stable Coding Level of Care Code ED Senior Reservoir Engineer for Taurus Mccarthy
[2023-10-02 20:40] LABS: Basophils # 0.1 10^3/uL (0.0-0.1); Basophils % 1.2 %; Eosinophils # 0.4 10^3/uL (0.0-0.8); Eosinophils % 4.4 %; Hematocrit 32.3 % (36-47); Lymphocytes # 1.1 10^3/uL (0.8-4.8); Lymphocytes % 12.7 %; Mean Corpuscular HGB Conc 29.7 g/dL (30-55); Mean Corpuscular Hemoglobin 27.2 pg (27-33); Mean Corpuscular Volume 91.5 fl (85-98); Mean Platelet Volume 8.3 fL (7.4-10.4); Monocytes # 0.5 10^3/uL (0.2-0.9); Monocytes % 5.5 %; Neutrophils # 6.61 10^3/uL (1.8-7.7); Neutrophils % 73.5 %; Nucleated Red Blood Cells % 0 %; Platelet Count 364 10^3/cmm (157-399); Red Blood Count 3.53 10^6/uL (3.85-5.65); Red Cell Distribution Width 16.6 % (12.1-15.1); White Blood Count 8.99 10^3/uL (3.29-11.43)
[2023-10-02] MEDS: sodium chloride 0.9% 500 ML 999 ML IV (20:52)
[2023-10-02 21:06] LABS: Alanine Aminotransferase < 5 U/L (0-33); Albumin Level 3.1 g/dL (3.5-5.2); Alkaline Phosphatase 149 U/L (35-105); Anion Gap 15.2 (5-19); Aspartate Amino Transferase 9 U/L (0-32); Blood Urea Nitrogen 29 mg/dL (8-23); Carbon Dioxide 26 mmol/L (22-29); Chloride 96 mmol/L (98-107); Globulin 4.2 g/dL (1.3-4.6); Glomerular Filtration Rate 26.6 mL/min (90-130); Glucose 135 mg/dL (65-115); Osmolality Calculated 278 mOsm/kg (285-295); Sodium 130 mmol/L (136-145); Total Bilirubin 0.3 mg/dL (0.15-1.2); Total Protein 7.3 g/dL (6.6-8.7)
[2023-10-02 21:07] LABS: Lactic Sepsis W/Reflex 1.1 mmol/L (0.5-2.2)
[2023-10-02 21:09] LABS: Potassium 7.2 mmol/L (3.5-5.1)
[2023-10-02 22:30] LABS: Add Urine Microscopic? YES; Bilirubin Urine 1+ (Negative); Blood Urine 2+ (Negative); Glucose Urine UA Norm (Normal); Ketones Urine 1+ (Negative); Leukocyte Esterase Urine 2+ (Negative); Nitrate Urine Negative (Negative); Protein Urine 1+ (Negative); Urine Appearance Clear (CLEAR); Urine Color Yellow (Yellow); Urobilinogen Urine Neg (Negative); pH Urine 5 (5-7)
[2023-10-02 22:31] LABS: Add Urine Culture? Yes; Bacteria Urine TRACE /hpf; Mucus Urine 1+ /hpf; RBC Urine 0-4 /hpf (0-2)
[2023-10-02 22:37] LABS: Potassium 7.7 mmol/L (3.5-5.1)
--- NOTE | 2023-10-02 22:39 | ECG_ITS ---
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 Measurements Intervals [place] Rate: 72 P: 72 DE: 163 QRS: 3 QRSD: 78 T: 49 QT: 362 QTc: 398 Interpretive Statements SINUS RHYTHM LOW QRS VOLTAGE IN PRECORDIAL LEADS [QRS DEFLECTION < 1.0 mV IN CHEST LEADS] Compared to ECG 06/23/2022 18:24:09 Low QRS voltage now present Electronically Signed On 10-03-2023 13:51:27 CITY EDITOR by Ford Birch M.D. [email or web address]
[2023-10-02 22:56] LABS: Glucose Point of Care 162 mg/dL (70-110)
[2023-10-02] MEDS: dextrose 50% syringe 50 mL IVP (22:58)
[2023-10-02] MEDS: calcium gluconate 0.1 gm/mL 10% SDV 10mL 1 GM IVP (22:59)
[2023-10-02] MEDS: insulin regular-human 100 units/1 mL 10 UNIT IVP (22:59)
--- NOTE | 2023-10-02 23:26 | PM.HP ---
Providers/Chief Complaint Primary Care Provider: Berta Barrett MD Chief Complaint: ULCER History of Present Illness Miguelina Goncalves is a 63 year old female who presented from long term for abnormal lab potassium 7.2. Patient is stating that she has Parkinson's, she is bedbound, she stays constipated most of the time, she is not able to recall when was her last bowel movement, she has not experienced any chest pain shortness of breath. She has resting tremors which she is attributing to Parkinson's. Records from the long term showed she is DNR. She does take potassium supplement along diclofenac and losartan She has been given insulin D50 amp and calcium gluconate She was discharged on 09/11 after management sacral ulcer stage IV ulcer, UTI with Proteus she was given 10-day IV antibiotic course end date was on 09/16, Sacral area ulcer debridement 09/07 Review of Systems Const: Denies: fever(s) Eyes: Denies: change in vision ENMT: Denies: throat pain Card: Denies: chest pain Resp: Denies: dyspnea GI: Denies: abdominal pain : Denies: flank pain Musc: Denies: neck pain Skin/Breast: Reports: rash Medications/Allergies Home Medications Medication Instructions Recorded Confirmed Last Taken Type aspirin 81 mg tablet,delayed 81 mg PO DAILY@01/31/20 09/29/23 09/29/23 History release (Adult Low Dose Aspirin) gabapentin 800 mg tablet 800 mg PO DAILY@12 01/31/20 09/29/23 09/29/23 History gabapentin 600 mg tablet 600 mg PO BID #60 tabs 11/06/21 09/29/23 09/29/23 Rx cholecalciferol (vitamin D3) 125 125 mcg PO DAILY@01/22/22 09/29/23 09/29/23 History mcg (5,000 unit) tablet (Vitamin D3) bisacodyl 5 mg tablet,delayed 10 mg PO DAILY PRN Constipation 06/17/22 09/29/23 09/29/23 History release (Dulcolax (bisacodyl)) magnesium hydroxide 400 mg/5 mL 30 ml PO DAILY PRN Constipation 06/17/22 09/29/23 09/29/23 History oral suspension (Milk of Magnesia) sodium phosphates 19 gram-7 118 ml [place] DAILY PRN Constipation 06/17/22 09/29/23 09/29/23 History gram/118 mL enema (Fleet Enema) acetaminophen 325 mg tablet 650 mg PO Q6H PRN Pain 06/23/22 09/29/23 09/29/23 History (Tylenol) bisacodyl 10 mg rectal suppository 10 mg [place] DAILY PRN Constipation 06/23/22 09/29/23 09/29/23 History (Dulcolax (bisacodyl)) hydrocodone 5 mg-acetaminophen 325 1 tab PO TID PRN Pain 08/17/22 09/29/23 09/29/23 History mg tablet Wheeled walker with seat #1 ea 10/06/22 09/06/23 Unknown Rx carbidopa 25 mg-levodopa 100 mg 1 tab PO BEDTIME 09/06/23 09/29/23 09/29/23 History tablet carbidopa 25 mg-levodopa 100 mg 2 tab PO TID@08,12,16 09/06/23 09/29/23 09/29/23 History tablet (Sinemet) cyclobenzaprine 5 mg tablet 5 mg PO BID PRN Muscle Spasm 09/06/23 09/29/23 09/29/23 History diclofenac sodium 1 % topical gel 1 g topical TID 09/06/23 09/29/23 09/29/23 History dulaglutide 3 mg/0.5 mL 3 mg SUBCUT Q7D 09/06/23 09/29/23 09/29/23 History subcutaneous pen injector (Trulicity) insulin degludec 100 unit/mL (3 35 unit SUBCUT BEDTIME 09/06/23 09/29/23 09/29/23 History mL) subcutaneous pen (Tresiba FlexTouch U-100 insulin) insulin lispro 100 unit/mL See Rx Instructions .Route .COMPLEX 09/06/23 09/29/23 09/29/23 History subcutaneous pen (Humalog KwikPen (U-100) Insulin) ketoconazole 1 % shampoo (Nizoral See Rx Instructions .Route .COMPLEX 09/06/23 09/29/23 09/29/23 History A-D) loratadine 10 mg tablet (Claritin) 10 mg PO DAILY@08 09/06/23 09/29/23 09/29/23 History losartan 25 mg tablet 25 mg PO DAILY@08 09/06/23 09/29/23 09/29/23 History nystatin 100,000 unit/gram topical See Rx Instructions .Route .COMPLEX 09/06/23 09/29/23 09/29/23 History powder potassium chloride 20 mEq 40 meq PO DAILY@08 09/06/23 09/29/23 09/29/23 History tablet,extended release(part/cryst) cyanocobalamin (vitamin B-12) 1,000 mcg PO DAILY #30 tabs 09/11/23 09/29/23 09/29/23 Rx 1,000 mcg tablet folic acid 1 mg tablet 1 mg PO BID #60 tabs 09/11/23 09/29/23 09/29/23 Rx furosemide 40 mg tablet 40 mg PO DAILY #14 tabs 09/11/23 09/29/23 09/29/23 Rx ceftriaxone 1 gram solution for 1 g IV DAILY 09/29/23 09/29/23 09/29/23 History injection citalopram 10 mg tablet 10 mg PO DAILY 09/29/23 09/29/23 09/29/23 History lorazepam 2 mg/mL oral concentrate 0.5 mg PO .12XD PRN Anxiety 09/29/23 09/29/23 09/29/23 History Allergies Allergy/AdvReac Type Severity Reaction Status Date / Time ampicillin Allergy Unknown Rash and Verified 09/06/23 10:42 Itching mushroom Allergy Unknown Verified 09/06/23 14:54 PFSH Acute PFSH: Medical History Cellulitis Cellulitis Diabetes mellitus Diabetic neuropathy DNR (do not resuscitate) From [facility] paperwork. History of cataract Hyperlipidemia Hypertension Metabolic encephalopathy Parkinson's disease Sepsis UTI (urinary tract infection) Surgical History History of hand surgery Family History Other Cancer Diabetes Social History Smoking and tobacco/nicotine status: never used tobacco/nicotine Alcohol intake: never Substance/Drug Use: never Vitals/I&O/Wt Last Vital Signs Temp 98.2 F 11/24/23 19:11 Pulse 69 10/02/23 22:30 Resp 20 H 10/02/23 22:30 BP 118/42 10/02/23 22:30 Pulse Ox 96 10/02/23 22:30 O2 Del Method Room Air 10/02/23 22:30 Weight last 48 hrs Weight 113.398 kg Physical Exam Narrative: Pleasant and cooperative Patient is currently resting tremors GCS 15 Awake and alert Nonfocal neuro exam Sacral area ulcer Lower extremity nonpitting edema Currently on room air Hemodynamically stable Awake and alert x3 GCS 15 Data 10/02/23 20:20 10/02/23 21:57 Micro: Microbiology 10/02/23 20:26 Blood Culture - Preliminary Blood SPECIMEN COLLECTED 10/02/23 20:20 Blood Culture - Preliminary Blood SPECIMEN COLLECTED A&P Assessment and plan (1) Acute hyperkalemia: (2) B12 deficiency: (3) Yeast dermatitis: (4) Sacral decubitus ulcer, stage IV: (5) Diabetes mellitus: (6) Parkinson's disease: (7) DNR (do not resuscitate): (8) long-term resident: Plan Acute hyperkalemia Likely related to use of nephrotoxic agents Hold potassium supplementation of losartan Given calcium gluconate insulin D50 amp We will give bicarb I would not give Kayexalate because patient has had no bowel movement in the last few days Recheck potassium Goals of care discussed with the patient patient is DNR/DNI Sacral area stage IV recent debridement Proteus mirabilis, patient recently finished IV antibiotic course History of Parkinson's Positive asterixis Patient is bedbound long-term resident Consistent carb diet start insulin sliding scale Attestations Medical Necessity Statement*: more than 2 midnights anticipated Diagnoses Acute hyperkalemia E87.5 B12 deficiency E53.8 Yeast dermatitis B37.2 Sacral decubitus ulcer, stage IV L89.154 Diabetes mellitus E11.9 Parkinson's disease G20 DNR (do not resuscitate) Z66 long-term resident Z59.3
[2023-10-02] MEDS: sodium chloride 0.9% 1,000 ML 999 ML IV (23:34)
[2023-10-02] MEDS: sodium polystyrene sulfonate 15 gm/60 mL Btl PO (23:35)
[2023-10-03] VITALS (14 sets, daily range): BP systolic 100–131; BP diastolic 47–78; PULSE 68–81; RESP 12–18; TEMP 36.6–37.1; O2SAT 93–100; BMI 46.2
[2023-10-03] MEDS: lactulose oral liq 20 gm/30 mL UDC PO (00:37)
[2023-10-03] MEDS: sodium bicarbonate 8.4% 1 mEq/mL 50mL Syr 100 MEQ IVP (00:37)
[2023-10-03 01:48] LABS: Potassium 7.6 mmol/L (3.5-5.1)
[2023-10-03] MEDS: sodium chloride 0.9% 1,000 ML 75 ML IV ×2 (03:11→17:53)
[2023-10-03 06:03] LABS: Basophils # 0.1 10^3/uL (0.0-0.1); Basophils % 1.2 %; Eosinophils # 0.4 10^3/uL (0.0-0.8); Eosinophils % 4.6 %; Hematocrit 31.2 % (36-47); Lymphocytes % 12.6 %; Mean Corpuscular HGB Conc 29.2 g/dL (30-55); Mean Corpuscular Volume 92.6 fl (85-98); Mean Platelet Volume 8.6 fL (7.4-10.4); Monocytes # 0.5 10^3/uL (0.2-0.9); Monocytes % 6.7 %; Neutrophils # 5.76 10^3/uL (1.8-7.7); Neutrophils % 71.7 %; Nucleated Red Blood Cells % 0 %; Platelet Count 321 10^3/cmm (157-399); Red Blood Count 3.37 10^6/uL (3.85-5.65); Red Cell Distribution Width 16.5 % (12.1-15.1); White Blood Count 8.04 10^3/uL (3.29-11.43)
[2023-10-03 06:16] LABS: Anion Gap 16.4 (5-19); Blood Urea Nitrogen 25 mg/dL (8-23); Calcium 8.8 mg/dL (8.5-10.5); Carbon Dioxide 25 mmol/L (22-29); Chloride 101 mmol/L (98-107); Glomerular Filtration Rate 32.5 mL/min (90-130); Glucose 152 mg/dL (65-115); Magnesium 2.5 mg/dL (1.7-2.3); Osmolality Calculated 289 mOsm/kg (285-295); Potassium 6.4 mmol/L (3.5-5.1); Sodium 136 mmol/L (136-145)
[2023-10-03 07:21] LABS: Glucose Point of Care 151 mg/dL (70-110)
[2023-10-03] MEDS: sennosides-docusate Tablet 2 TAB PO ×2 (09:52→17:51)
[2023-10-03] MEDS: gabapentin 300 mg Capsule 600 MG PO ×2 (09:52→17:52)
[2023-10-03] MEDS: carbidopa-levodopa 25-100mg Tablet 2 EACH PO ×3 (09:53→17:51)
[2023-10-03 11:44] LABS: Blood Urea Nitrogen 24 mg/dL (8-23); Calcium 8.6 mg/dL (8.5-10.5); Carbon Dioxide 26 mmol/L (22-29); Chloride 100 mmol/L (98-107); Glucose 130 mg/dL (65-115); Osmolality Calculated 284 mOsm/kg (285-295); Sodium 134 mmol/L (136-145)
[2023-10-03 12:07] LABS: Glucose Point of Care 165 mg/dL (70-110)
[2023-10-03] MEDS: insulin lispro 100 unit/1 mL SUBCUT ×2 (13:22→17:52)
[2023-10-03 16:32] LABS: Glucose Point of Care 189 mg/dL (70-110)
[2023-10-03] MEDS: carbidopa-levodopa 25-100mg Tablet 1 EACH PO (21:10)
[2023-10-03 21:26] LABS: Glucose Point of Care 115 mg/dL (70-110)
--- NOTE | 2023-10-03 21:29 | P.PN_ITS ---
Subjective Subjective: Reports he is doing all right. Has been having constipation. No bowel movement so far. Vitals/I&O/Wt Last Vital Signs Temp 98.3 F 10/03/23 16:26 Pulse 81 10/03/23 19:29 Resp 18 10/03/23 19:29 BP 120/47 10/03/23 16:26 Pulse Ox 94 10/03/23 19:29 O2 Del Method Room Air 10/03/23 19:29 10/03/23 10/03/23 10/03/23 06:59 14:59 22:59 Intake Total 1500 / 1500 240 / 240 1000 / 1240 Output Total 550 / 550 1100 / 1100 Balance 950 / 950 240 / 240 -100 / 140 Weight last 48 hrs Weight 116.392 kg Weight 114.623 kg Weight 113.398 kg Physical Exam Const: COMMON NORMALS: alert GENERAL APPEARANCE: cooperative NUTRITIONAL APPEARANCE: obese ORIENTATION/CONSCIOUSNESS: Yes awake HENMT: COMMON NORMALS: oropharynx normal Neck/C-Spine: COMMON NORMALS: no JVD Resp: COMMON NORMALS: normal respiratory effort and clear to auscultation bilaterally AUSCULTATION: clear to auscultation bilaterally Cardio: COMMON NORMALS: no JVD, regular rhythm, S1 normal heart sound present, S2 normal heart sound present and No murmurs present (Cardio) RHYTHM: regular rhythm HEART SOUNDS: S1 normal heart sound present and S2 normal heart sound present GI: COMMON NORMALS: Normal to inspection, nondistended, normoactive bowel sounds present, Soft to palpation and non-tender PALPATION: Yes Soft to palpation Extremity: COMMON NORMALS: no joint enlargement and no pedal edema Neuro: COMMON NORMALS: moves all extremities SENSORIUM/ORIENTATION: Yes alert Urinary Catheter Management: Townsend: Cath Placed During This Visit: no Reason for Continuing Indwelling Catheter: Chronic Indwelling Urinary Catheter on Admission Data 10/03/23 04:31 10/03/23 11:06 Micro: Microbiology 10/02/23 20:26 Blood Culture - Preliminary Blood NEGATIVE TO DATE 10/02/23 20:20 Blood Culture - Preliminary Blood NEGATIVE TO DATE A&P Assessment and plan (1) Acute hyperkalemia: (2) B12 deficiency: (3) Yeast dermatitis: (4) Sacral decubitus ulcer, stage IV: (5) Diabetes mellitus: (6) Parkinson's disease: (7) DNR (do not resuscitate): (8) skilled nursing resident: Plan Acute hyperkalemia Severe hyperkalemia, showing gradual improvement. She had received Kayexalate. Still no bowel movement. Will escalate bowel regimen With increase in risk of bowel necrosis withKayexalate. Still noted peaked T waves. Recheck potassium requested earlier today, diet resumed with low potassium diet. Potassium improving further. At risk of arrhythmia, monitor on telemetry. Reassess chemistry in the morning, requested. Discussed with service architect, no consultation for the time being. Likely related to use of nephrotoxic agents Hold potassium supplementation of losartan MAN: Received fluid challenge. Reviewed BUN, creatinine, so far kidney function is improving. Reassess chemistry in the morning. reviewed magnesium. Sacral area stage IV recent debridement and heel injury: Wound care requested. Proteus mirabilis, patient recently finished IV antibiotic course History of Parkinson's Positive asterixis Patient is bedbound skilled nursing resident Consistent carb diet start insulin sliding scale Attestations Medical Necessity Statement*: Continue admission for assessment management of severe hyperkalemia, MAN. Diagnoses Acute hyperkalemia E87.5 B12 deficiency E53.8 Yeast dermatitis B37.2 Sacral decubitus ulcer, stage IV L89.154 Diabetes mellitus E11.9 Parkinson's disease G20 DNR (do not resuscitate) Z66 skilled nursing resident Z59.3
--- NOTE | 2023-10-03 22:25 | PC.NURSE ---
patient requesting to get up to use commode, when asked how she gets up at retirement, she states that she stands up with 2 people, patient told that we could try to sit on the side of the bed and see if she was able to stand but that she would have to be able to stand and we could not do all of the lifting, patient changed her mind and said she no longer needed to use the restroom, offered bedpan and patient declined, order received for miralax and suppository, patient stated she wanted to wait until tomorrow, order for suppository re-timed for AM
[2023-10-04] VITALS (10 sets, daily range): BP systolic 108–139; BP diastolic 52–67; PULSE 68–76; RESP 12–18; TEMP 36.9–37.1; O2SAT 94–100
[2023-10-04 03:22] LABS: Blood Urea Nitrogen 17 mg/dL (8-23); Calcium 8.3 mg/dL (8.5-10.5); Carbon Dioxide 28 mmol/L (22-29); Chloride 100 mmol/L (98-107); Glomerular Filtration Rate 45.2 mL/min (90-130); Glucose 113 mg/dL (65-115); Osmolality Calculated 284 mOsm/kg (285-295); Sodium 136 mmol/L (136-145)
[2023-10-04 03:23] LABS: Anion Gap 12.9 (5-19); Potassium 4.9 mmol/L (3.5-5.1)
[2023-10-04] MEDS: sodium chloride 0.9% 1,000 ML 75 ML IV ×2 (05:02→19:31)
[2023-10-04 06:43] LABS: Glucose Point of Care 103 mg/dL (70-110)
[2023-10-04] MEDS: gabapentin 300 mg Capsule 600 MG PO ×2 (08:15→19:25)
[2023-10-04] MEDS: polyethylene glycol 3350 Pkt 17 gm PO (08:15)
[2023-10-04] MEDS: sennosides-docusate Tablet 2 TAB PO (08:15)
[2023-10-04] MEDS: carbidopa-levodopa 25-100mg Tablet 2 EACH PO ×3 (08:15→19:25)
--- NOTE | 2023-10-04 09:17 | P.DS_ITS ---
Discharge Providers Date of Admission: 10/03/23 01:02 Date of Discharge: October 04, 2023 Attending Provider at Admission: Danelle Valencia MD Attending Provider at Discharge: Reuben Wang Primary Care Provider: Berta Barrett MD Diagnoses at Discharge Discharge Diagnosis (1) Acute hyperkalemia: Status: Acute (2) B12 deficiency: Status: Acute (3) Yeast dermatitis: Status: Acute (4) Sacral decubitus ulcer, stage IV: Status: Acute (5) Diabetes mellitus: Status: Acute (6) Parkinson's disease: Status: Acute (7) DNR (do not resuscitate): Status: Acute Permanent problem details: From [facility] paperwork. (8) half-way resident: Status: Acute Reason for Visit Reason for Visit: ULCER Hospital Course Hospital Course Pleasant 63-year-old lady long-term resident, bedbound at baseline, with Parkinson disease, tremors, chronic advanced decubitus ulcer on her sacrum, tissue injury on her heel, earlier this month admitted with UTI, return to the hospital with concern for mental status change, on presentation found to have severe hyperkalemia 7.7, MAN, creatinine up to 1.9 with normal baseline. Potassium supplement was stopped. Losartan stopped. Diclofenac stopped. Received fluids by IV, calcium gluconate, insulin, Kayexalate. Had constipation, bowel regimen was escalated and had a bowel movement. Potassium normalized down to 4.9. She states she is doing well otherwise. MAN appears to be improving, creatinine down to 1.2. At discharge potassium is discontinued, Lasix is changed to as needed, losartan is stopped for now until reassessment. Please reassess renal function, potassium. Would avoid NSAIDs. Continue wound care and follow-up for sacral decubitus ulcer, heel injury. Physical Exam Const: COMMON NORMALS: alert GENERAL APPEARANCE: cooperative NUTRITIONAL APPEARANCE: obese ORIENTATION/CONSCIOUSNESS: Yes awake HENMT: COMMON NORMALS: oropharynx normal Neck/C-Spine: COMMON NORMALS: no JVD Resp: COMMON NORMALS: normal respiratory effort and clear to auscultation bilaterally AUSCULTATION: clear to auscultation bilaterally Cardio: COMMON NORMALS: no JVD, regular rhythm, S1 normal heart sound present, S2 normal heart sound present and No murmurs present (Cardio) RHYTHM: regular rhythm HEART SOUNDS: S1 normal heart sound present and S2 normal heart sound present GI: COMMON NORMALS: Normal to inspection, nondistended, normoactive bowel sounds present, Soft to palpation and non-tender PALPATION: Yes Soft to palpation Extremity: COMMON NORMALS: no joint enlargement and no pedal edema Neuro: COMMON NORMALS: moves all extremities SENSORIUM/ORIENTATION: Yes alert Urinary Catheter Management: Townsend: Cath Placed During This Visit: no Reason for Continuing Indwelling Catheter: Chronic Indwelling Urinary Catheter on Admission Discharge Data Studies Completed and Pending Pending at discharge Category Date Time Status Basic Metabolic Panel AM LABS Lab 10/05/23 04:00 Ordered Basic Metabolic Panel AM LABS Lab 10/06/23 04:00 Ordered Blood Culture Stat Lab 10/02/23 20:26 Results Urine Culture Stat Lab 10/02/23 21:01 Results Laboratory Results WBC 8.04 10^3/uL (3.29-11.43) 10/03/23 04:31 RBC 3.37 10^6/uL (3.85-5.65) L 10/03/23 04:31 Hgb 9.10 g/dL (11.27-16.99) L 10/03/23 04:31 Hct 31.2 % (36-47) L 10/03/23 04:31 MCV 92.6 fl (85-98) 10/03/23 04:31 MCH 27.0 pg (27-33) 10/03/23 04:31 MCHC 29.2 g/dL (30-55) L 10/03/23 04:31 RDW 16.5 % (12.1-15.1) H 10/03/23 04:31 Plt Count 321 10^3/cmm (157-399) 10/03/23 04:31 MPV 8.6 fL (7.4-10.4) 10/03/23 04:31 Neut % (Auto) 71.7 % 10/03/23 04:31 Lymph % (Auto) 12.6 % 10/03/23 04:31 [place] % (Auto) 6.7 % 10/03/23 04:31 Eos % (Auto) 4.6 % 10/03/23 04:31 Baso % (Auto) 1.2 % 10/03/23 04:31 Neut # (Auto) 5.76 10^3/uL (1.8-7.7) 10/03/23 04:31 Lymph # (Auto) 1.0 10^3/uL (0.8-4.8) 10/03/23 04:31 [place] # (Auto) 0.5 10^3/uL (0.2-0.9) 10/03/23 04:31 Eos # (Auto) 0.4 10^3/uL (0.0-0.8) 10/03/23 04:31 Baso # (Auto) 0.1 10^3/uL (0.0-0.1) 10/03/23 04:31 Nucleated RBC % (auto) 0 % 10/03/23 04:31 Nucleated RBCs # 0.0 /100WBC 10/03/23 04:31 Sodium 136 mmol/L (136-145) 10/04/23 02:57 Potassium 4.9 mmol/L (3.5-5.1) 10/04/23 02:57 Chloride 100 mmol/L (98-107) 10/04/23 02:57 Carbon Dioxide 28 mmol/L (22-29) 10/04/23 02:57 Anion Gap 12.9 (5-19) 10/04/23 02:57 BUN 17 mg/dL (8-23) 10/04/23 02:57 Creatinine 1.2 mg/dL (0.5-0.9) H 10/04/23 02:57 GFR Calculation 45.2 mL/min (90-130) L 10/04/23 02:57 Glucose 113 mg/dL (65-115) 10/04/23 02:57 POC Glucose 103 mg/dL (70-110) 10/04/23 06:39 Calculated Osmolality 284 mOsm/kg (285-295) L 10/04/23 02:57 Lactic Acid 1.1 mmol/L (0.5-2.2) 10/02/23 20:20 Calcium 8.3 mg/dL (8.5-10.5) L 10/04/23 02:57 Magnesium 2.5 mg/dL (1.7-2.3) H 10/03/23 04:31 Total Bilirubin 0.3 mg/dL (0.15-1.2) 10/02/23 20:20 AST 9 U/L (0-32) 10/02/23 20:20 ALT < 5 U/L (0-33) 10/02/23 20:20 Alkaline Phosphatase 149 U/L (35-105) H 10/02/23 20:20 Total Protein 7.3 g/dL (6.6-8.7) 10/02/23 20:20 Albumin 3.1 g/dL (3.5-5.2) L 10/02/23 20:20 Globulin 4.2 g/dL (1.3-4.6) 10/02/23 20:20 Urine Color Yellow (Yellow) 10/02/23 21:01 Urine Appearance Clear (CLEAR) 10/02/23 21:01 Urine pH 5 (5-7) 10/02/23 21:01 Ur Specific [place] 1.020 (1.005-1.030) 10/02/23 21:01 Urine Protein 1+ (Negative) H 10/02/23 21:01 Urine Glucose (UA) Norm (Normal) 10/02/23 21:01 Urine Ketones 1+ (Negative) H 10/02/23 21:01 Urine Blood 2+ (Negative) H 10/02/23 21:01 Urine Nitrate Negative (Negative) 10/02/23 21: Urine Bilirubin 1+ (Negative) H 10/02/23 21:01 Urine Urobilinogen Neg mg/dL (Negative) 10/02/23 21:01 Ur Leukocyte Esterase 2+ (Negative) H 10/02/23 21:01 Urine RBC 0-4 /hpf (0-2) H 10/02/23 21:01 Urine WBC 10-15 /hpf (0-5) H 10/02/23 21:01 Ur Squamous Epith Cells 5-10 /hpf (0-5) H 10/02/23 21:01 Amorphous Sediment Not Reportable 10/02/23 21:01 Urine Bacteria Trace /hpf (NONE) 10/02/23 21:01 Urine Mucus 1+ /hpf 10/02/23 21:01 Vitals Last Vital Signs Temp 984 F H 10/04/23 09:08 Pulse 76 10/04/23 09:08 Resp 17 10/04/23 09:08 BP 118/67 10/04/23 09:08 Pulse Ox 95 10/04/23 09:08 O2 Del Method Room Air 10/04/23 09:08 Discharge Plan Discharge Condition: Stable Prescriptions: New polyethylene glycol 3350 17 gram Powder In Packet 17 g PO DAILY Qty: 90 0RF Continued gabapentin 800 mg tablet 800 mg PO DAILY@12 aspirin [Adult Low Dose Aspirin] 81 mg tablet,delayed release (DR/EC) 81 mg PO DAILY@08 (DME) Wheeled walker with seat Large See Rx Instructions .Route .MEDSUPPLY Qty: 1 0RF Rx Instructions: Until no longer needed bisacodyl [Dulcolax (bisacodyl)] 5 mg tablet,delayed release (DR/EC) 10 mg PO DAILY PRN (Reason: Constipation) Rx Instructions: give if no results from mom Fleet Enema 19-7 gram/118 mL enema 118 ml [place] DAILY PRN (Reason: Constipation) Rx Instructions: give if no results from mom and dulcolax magnesium hydroxide [Milk of Magnesia] 400 mg/5 mL suspension 30 ml PO DAILY PRN (Reason: Constipation) Rx Instructions: if no bm in 3 days go to dulcolax orders gabapentin 600 mg tablet 600 mg PO BID Qty: 60 10RF cholecalciferol (vitamin D3) [Vitamin D3] 125 mcg (5,000 unit) Tablet 125 mcg PO DAILY@08 bisacodyl [Dulcolax (bisacodyl)] 10 mg Suppository 10 mg [place] DAILY PRN (Reason: Constipation) Rx Instructions: if no results from mom acetaminophen [Tylenol] 325 mg Tablet 650 mg PO Q6H PRN (Reason: Pain) carbidopa-levodopa 25-100 mg Tablet 1 tab PO BEDTIME loratadine [Claritin] 10 mg Tablet 10 mg PO DAILY@08 cyclobenzaprine 5 mg tablet 5 mg PO BID PRN (Reason: Muscle Spasm) carbidopa-levodopa [Sinemet] 25-100 mg tablet 2 tab PO TID@08,12,16 Nizoral A-D 1 % Shampoo See Rx Instructions .ROUTE .COMPLEX Rx Instructions: use as directed topically once a day on thu and insulin degludec [Tresiba FlexTouch U-100] 100 unit/mL (3 mL) insulin pen 35 unit SUBCUT BEDTIME Trulicity 3 mg/0.5 mL pen injector 3 mg SUBCUT Q7D Rx Instructions: on thursday nystatin 100,000 unit/gram powder See Rx Instructions .ROUTE .COMPLEX Rx Instructions: apply as directed topical every shift, cleanse under abdominal folds and r breast with ns dry thoroughly apply nystatin powder and apply wicking cloth insulin lispro [Humalog KwikPen Insulin] 100 unit/mL insulin pen See Rx Instructions .ROUTE .COMPLEX Rx Instructions: 12 units subcutaneously with meals and sliding scale with meals if blood sugar is less than 70 call md 150-200=0 units 201-250=2 units 251-300=4 units 301-350=6 units 351-400=8 units if blood sugar is greater than 400 give 8 units- call md call pcp bs <60 and >400 if symptomatic or 3 consecutive reading over 400 folic acid 1 mg Tablet 1 mg PO BID Qty: 60 0RF cyanocobalamin (vitamin B-12) 1,000 mcg tablet 1,000 mcg PO DAILY Qty: 30 0RF heparin, porcine (PF) 100 unit/mL syringe See Rx Instructions .ROUTE .COMPLEX Rx Instructions: 500 unit intravenously every shift. Flush wit heparinized NS before and after each use morphine concentrate 100 mg/5 mL (20 mg/mL) solution See Rx Instructions .ROUTE .COMPLEX Rx Instructions: 50 mg (0.5 ml) orally every 2 hours or 12 times daily as needed for pain. Santyl 250 unit/gram ointment See Rx Instructions .ROUTE .COMPLEX Rx Instructions: 1 applic topically once daily. Special instructions: cleanse sacral wound bed with NS and apply nickel thick layer of santyl to wound bed, apply rolled (kerlix) moist ns gauze in open space (pack) cover with bordered foam, change daily and PRN. Normal Saline Flush Syringe See Rx Instructions .ROUTE .COMPLEX Rx Instructions: 10 mL intravenously every shift, flush before and afer use hydrocodone-acetaminophen 5-325 mg tablet 1 - 2 tab PO Q6H PRN (Reason: Pain) citalopram 10 mg tablet 10 mg PO DAILY Changed furosemide 40 mg tablet 40 mg PO DAILY PRN (Reason: Edema) Qty: 14 0RF Discontinued losartan 25 mg Tablet 25 mg PO DAILY@08 potassium chloride 20 mEq tablet,ER particles/crystals 40 meq PO DAILY@08 diclofenac sodium 1 % gel 1 g TOPICAL TID Rx Instructions: apply to bilateral knees ceftriaxone 1 gram recon soln 1 g IV DAILY Discharge Orders: Discharge Order (Routine); Ordered 10/04/23 Ordered By: Reuben Wang Referrals: Berta Barrett MD [Primary Care Provider] - 4-7 days Discharge Diet: As Directed, Cardiac and Diabetic Patient Instructions: Opioid Safety Activity Restrictions/Additional Instructions: Please stop potassium supplements, discontinue diclofenac, stop losartan for now, reassess potassium and renal function for recovery from MAN at next visit. Consider whether losartan may be resumed. Avoid NSAIDs. Minced and moist diet. Continue wound care and follow-up for sacral ulcer, tissue injury on the heel. Reposition frequently. Discharge Attestations Time Spent in Discharge Care*: greater than 30 min Status at Discharge: Cognitive status at discharge: cognitively intact , Behavioral status at discharge: cooperative , Quality Metrics Clinical Quality Measures [ No reported AMI, CVA or VTE this stay] Coding Level of Care Code 47561 Total time (in minutes) for Discharge: 35 Diagnoses Acute hyperkalemia E87.5 B12 deficiency E53.8 Yeast dermatitis B37.2 Sacral decubitus ulcer, stage IV L89.154 Diabetes mellitus E11.9 Parkinson's disease G20 DNR (do not resuscitate) Z66 half-way resident Z59.3
--- NOTE | 2023-10-04 12:34 | PC.NURSE ---
called [facility] called staff and informed of pt's discharge instructions. jamee clarified if pt needs to continue iv ceftriaxone for her sacral wound since it was dc. called dr cardoso and he telephone order that he is okay to continue the iv antibiotic. called [facility] back and notified them of the discharge meds as well.
[2023-10-04 12:47] LABS: Glucose Point of Care 124 mg/dL (70-110)
--- NOTE | 2023-10-04 14:04 | PC.NURSE ---
Addendum entered by Vanita Joseph RN 10/04/23 14:09: dr cardoso notified in person and we will probably cancel the discharge order. Original Note: alf called back now and stated that pt needs a prior authorization for skilled. since pt was skilled for her stage4 sacral wound and iv antibiotic. they will call me back for more info.
[2023-10-04] MEDS: cefTRIAXone 1,000 MG in sodium chloride 0.9% (plus) 50 ML 100 MG IV (15:32)
[2023-10-04 17:56] LABS: Glucose Point of Care 104 mg/dL (70-110)
[2023-10-04] MEDS: HYDROcodone-acetaminophen 5-325 mg Tablet 1 TAB PO (21:11)
[2023-10-04] MEDS: carbidopa-levodopa 25-100mg Tablet 1 EACH PO (21:12)
[2023-10-04 21:39] LABS: Glucose Point of Care 119 mg/dL (70-110)
[2023-10-05] VITALS: BP 136/50; PULSE 69; RESP 19; O2SAT 97
[2023-10-05 03:39] LABS: Blood Urea Nitrogen 12 mg/dL (8-23); Calcium 7.9 mg/dL (8.5-10.5); Carbon Dioxide 25 mmol/L (22-29); Chloride 102 mmol/L (98-107); Glucose 93 mg/dL (65-115); Osmolality Calculated 283 mOsm/kg (285-295); Sodium 137 mmol/L (136-145)
[2023-10-05 04:00] VITALS: BP 143/53; PULSE 72; RESP 14; TEMP 36.8; O2SAT 96
[2023-10-05] MEDS: HYDROcodone-acetaminophen 5-325 mg Tablet 1 TAB PO (05:04)
[2023-10-05 06:00] VITALS: PULSE 67
[2023-10-05 06:56] LABS: Glucose Point of Care 117 mg/dL (70-110)
[2023-10-05 07:54] VITALS: BP 140/63; PULSE 69; RESP 14; TEMP 36.8; O2SAT 99
[2023-10-05 08:00] VITALS: PULSE 67; RESP 16; O2SAT 98
[2023-10-05] MEDS: collagenase oint 30 gm 1 APPLIC TOPICAL (11:06)
[2023-10-05] MEDS: gabapentin 300 mg Capsule 600 MG PO (11:06)
[2023-10-05] MEDS: carbidopa-levodopa 25-100mg Tablet 2 EACH PO (11:06)
--- NOTE | 2023-10-05 11:56 | PM.PN ---
Subjective Subjective: Hospital course, labs appreciated. Examination patient lying comfortably in bed, denies any nausea, vomiting, headache. States she is feeling better and asking when can she be [facility]. On review patient was discharged yesterday but could not be transferred as jail was awaiting prior authorization. Blood was appreciated with a CMP to be stable Vitals/I&O/Wt Last Vital Signs Temp 98.2 F 10/05/23 07:54 Pulse 67 10/05/23 08:00 Resp 16 10/05/23 08:00 BP 140/63 10/05/23 07:54 Pulse Ox 98 10/05/23 08:00 O2 Del Method Room Air 10/05/23 08:00 10/04/23 10/05/23 10/05/23 22:59 06:59 14:59 Intake Total 1050 / 1168 1000 / 1000 Output Total 550 / 550 500 / 1050 Balance 500 / 618 -500 / 118 1000 / 1000 Weight last 48 hrs Weight 118.841 kg Weight 118.524 kg Physical Exam Narrative: Pleasant and cooperative Patient is currently resting tremors GCS 15 Awake and alert Non focal neuro exam Sacral area ulcer Lower extremity non-pitting edema Currently on room air Hemodynamically stable Awake and alert x3 GCS 15 Urinary Catheter Management: [place]: Cath Placed During This Visit: no Reason for Continuing Indwelling Catheter: Chronic Indwelling Urinary Catheter on Admission Data 10/03/23 04:31 10/05/23 02:57 Micro: Microbiology 10/02/23 21:01 Urine Culture - Final Urine,Clean Catch A&P Assessment and plan (1) Acute hyperkalemia: (2) B12 deficiency: (3) Yeast dermatitis: (4) Sacral decubitus ulcer, stage IV: (5) Diabetes mellitus: (6) Parkinson's disease: (7) DNR (do not resuscitate): (8) [facility] resident: Plan Acute hyperkalemia Severe hyperkalemia, showing gradual improvement. She had received Kayexalate. Still no bowel movement. Will escalate bowel regimen With increase in risk of bowel necrosis withKayexalate. Still noted peaked T waves. Recheck potassium requested earlier today, diet resumed with low potassium diet. Potassium improving further. At risk of arrhythmia, monitor on telemetry. Reassess chemistry in the morning, requested. Discussed with ornamental rail installer, no consultation for the time being. Likely related to use of nephrotoxic agents Hold potassium supplementation of losartan MAN: Received fluid challenge. Reviewed BUN, creatinine, so far kidney function is improving. Reassess chemistry in the morning. reviewed magnesium. Sacral area stage IV recent debridement and heel injury: Wound care requested. Proteus mirabilis, patient recently finished IV antibiotic course History of Parkinson's Positive asterixis Patient is bedbound [facility] resident Consistent carb diet start insulin sliding scale Plan for the day: Continue wound care as before. Patient has already finished her course of IV antibiotics for Proteus from wound. Patient was still on IV antibiotics though she should have been finished on 09/16. Remove midline. Patient does not have any signs of sepsis for now will not need any further IV antibiotics. Continue other medications as on discharge with no further losartan or potassium supplements. Patient is stable to be discharged. Will discuss in detail with case management for no further IV antibiotics. Date of discharge 10/05. For further discharge instructions please visit the discharge summary done on 10/04. Attestations Medical Necessity Statement*: Requires further hospitalization while discharge planning is sought inpatient to readmitted with acute hyperkalemia and acute kidney injury with chronic sacral stage IV ulcer Diagnoses Acute hyperkalemia E87.5 B12 deficiency E53.8 Yeast dermatitis B37.2 Sacral decubitus ulcer, stage IV L89.154 Diabetes mellitus E11.9 Parkinson's disease G20 DNR (do not resuscitate) Z66 [facility] resident Z59.3
[2023-10-05 12:00] VITALS: BP 143/72; PULSE 73; RESP 14; O2SAT 99
--- NOTE | 2023-10-05 13:19 | PC.SOCIAL ---
PG 2 IMM Explained to pt Pg 2 IMM. No questions voiced. Provided pt a copy. Initialed, dated, & timed a copy & placed in chart.
== END 2023-10-05 16:25 | disposition skilled nursing facility (03) ==
LOC: ER 23:05 → CSU 10-03 04:55
PROVIDERS: Internal Medicine; Admitting Provider Internal Medicine; Emergency Provider Nurse Practitioner Family; PCP Family Medicine; Visit Provider Student in an Organized Health Care Education/Training Program
DX: E87.5 Hyperkalemia (principal); E53.8 Deficiency of other specified B group vitamins; B37.2 Candidiasis of skin and nail; L89.154 Pressure ulcer of sacral region, stage 4; E11.621 Type 2 diabetes mellitus with foot ulcer; Z66 Do not resuscitate; N17.9 Acute kidney failure, unspecified; G20.A1 Parkinson's disease without dyskinesia, without mention of fluctuations; B96.4 Proteus (mirabilis) (morganii) as the cause of diseases classified elsewhere; K59.00 Constipation, unspecified
CPT/HCPCS: 36415; 36416; 36592; 80048; 80053; 81001; 82962; 83605; 83735; 84132; 85025; 87040; 87086; 93005; 93010; 96372; 96374; 96375; 99285; G0378; J0612; J0696; J1815; J7030; J7040

== ENCOUNTER → 2024-01-01 15:09 | Outpatient (BNVA) | payer MEDICARE, MEDICAID, SELFPAY | PROVIDERS: PCP Family Medicine; Visit Provider Specialist | DX: G20.B2 Parkinson's disease with dyskinesia, with fluctuations (principal) | CPT/HCPCS: 99214 ==

== ENCOUNTER 2024-04-01 16:47 | Emergency (ER) | payer MEDICARE, MEDICAID, SELFPAY ==
[2024-04-01 16:51] VITALS: BP 129/70; PULSE 87; RESP 17; TEMP 37.2; O2SAT 91
--- NOTE | 2024-04-01 17:01 | W.ED.GIBLEED ---
HPI - GI Bleed General: Chief complaint: GI Bleed Stated complaint: gi bleed Time Seen by Provider: 04/01/24 16:57 History of Present Illness: 64-year-old female with a history of morbid obesity Parkinson's disease, diabetes mellitus, hypertension, hyperlipidemia and cataracts who presents to the emergency room by ambulance from the [facility] with diarrhea and some bright red blood per rectum. She says she does not feel bad today. She is does endorse some diarrhea but no abdominal pain. No nausea or vomiting. No black stools. She is on aspirin 81 mg but no other anticoagulation. No altered mental status. No focal motor deficits. No known fevers. Review of Systems Narrative: Constitutional symptoms: Negative except as documented in HPI. Skin symptoms: Negative except as documented in HPI. Eye symptoms: Negative except as documented in HPI. ENMT symptoms: Negative except as documented in HPI. Respiratory symptoms: Negative except as documented in HPI. Cardiovascular symptoms: Negative except as documented in HPI. Gastrointestinal symptoms: Negative except as documented in HPI. Genitourinary symptoms: Negative except as documented in HPI. Musculoskeletal symptoms: Negative except as documented in HPI. Neurologic symptoms: Negative except as documented in HPI. Psychiatric symptoms: Negative except as documented in HPI. Endocrine symptoms: Negative except as documented in HPI. [facility] ED PFSH: Medical History DNR (do not resuscitate) From [facility] paperwork. Metabolic encephalopathy Sepsis Cellulitis Cellulitis UTI (urinary tract infection) Parkinson's disease Diabetes mellitus Hypertension Hyperlipidemia History of cataract Diabetic neuropathy Surgical History History of hand surgery Family History Other Cancer Diabetes Social History Smoking and tobacco/nicotine status: never used tobacco/nicotine Alcohol intake: never Substance/Drug Use: never Physical Exam Narrative: EXAM NARRATIVE: General: Alert, no acute distress. Skin: Warm, dry. Head: Normocephalic, atraumatic. Neck: Supple, trachea midline. Eye: Extraocular movements are intact. Ears, nose, mouth and throat: mucosa moist. Cardiovascular: Regular, Normal peripheral perfusion. Respiratory: Lungs are clear to auscultation, respirations are non-labored, breath sounds are equal, Symmetrical chest wall expansion. Gastrointestinal: Soft, Nontender, Non distended, Normal bowel sounds. Musculoskeletal: Normal ROM, no deformity. Neurological: Alert and oriented, No focal neurological deficit observed. Psychiatric: Cooperative, appropriate mood & affect. Course Vital Signs: Vital signs: Vital Signs Temperature 99.0 F 04/01/24 16:51 Pulse Rate 87 04/01/24 16:51 Respiratory Rate 17 04/01/24 16:51 Blood Pressure 129/70 04/01/24 16:51 Pulse Oximetry 91 04/01/24 16:51 Oxygen Delivery Me thod Room Air 04/01/24 16:51 MDM - GI Bleed Medical Decision Making Medical decision making: Differential diagnosis including but not limited to and based on the above HPI, review of systems and physical exam: In this patient with bright red blood in diarrhea I expect either diverticular bleed, hemorrhoids or colitis with some irritation. We will check CBC and a BMP and coags. Make sure she is not anemic. No big leukocytosis. Orders placed to evaluate differential diagnosis based on the above differential, HPI and physical exam Lab Review: Laboratory results were reviewed and interpreted by myself the emergency room physician. Patient's white count is 13. Hemoglobin is 12 which is actually up from previous. BUN and creatinine are 16 and 1.0 which would indicate no elevation in her nitrogen products would be no upper GI bleeding which would be much more worrisome. Her vitals have been normal. This is likely a self-limited bleed secondary to gastroenteritis I reviewed the patient's medical record. Reexamination: Patient remained stable. No tachycardia. No hypotension. No altered mental status. No focal motor deficits. No increased work of breathing. Assessment and plan: Gastroenteritis Lower GI bleeding - Discharged home - Discussed plan with patient. Answered any questions. - Evaluation and treatment of this problem were appropriate in the emergency setting. Lab Data 04/01/24 16:40 04/01/24 16:40 Laboratory Results WBC 13.18 10^3/uL (3.29-11.43) H 04/01/24 16:40 RBC 4.26 10^6/uL (3.85-5.65) 04/01/24 16:40 Hgb 12.10 g/dL (11.27-16.99) 04/01/24 16:40 Hct 37.6 % (36-47) 04/01/24 16:40 MCV 88.3 fl (85-98) 04/01/24 16:40 MCH 28.4 pg (27-33) 04/01/24 16:40 MCHC 32.2 g/dL (30-55) 04/01/24 16:40 RDW 16.8 % (12.1-15.1) H 04/01/24 16:40 Plt Count 345 10^3/cmm (157-399) 04/01/24 16:40 MPV 8.7 fL (7.4-10.4) 04/01/24 16:40 Neut % (Auto) 79.3 % 04/01/24 16:40 Lymph % (Auto) 12.3 % 04/01/24 16:40 [place] % (Auto) 5.5 % 04/01/24 16:40 Eos % (Auto) 1.9 % 04/01/24 16:40 Baso % (Auto) 0.5 % 04/01/24 16:40 Neut # (Auto) 10.45 10^3/uL (1.8-7.7) H 04/01/24 16:40 Lymph # (Auto) 1.6 10^3/uL (0.8-4.8) 04/01/24 16:40 [place] # (Auto) 0.7 10^3/uL (0.2-0.9) 04/01/24 16:40 Eos # (Auto) 0.3 10^3/uL (0.0-0.8) 04/01/24 16:40 Baso # (Auto) 0.1 10^3/uL (0.0-0.1) 04/01/24 16:40 Nucleated RBC % (auto) 0 % 04/01/24 16:40 Nucleated RBCs # 0.0 /100WBC 04/01/24 16:40 PT 13.20 SECONDS (12.1-14.9) 04/01/24 16:40 INR 0.98 (0.8-1.2) 04/01/24 16:40 APTT 34.0 SECONDS (23.9-36.7) 04/01/24 16:40 Sodium 139 mmol/L (136-145) 04/01/24 16:40 Potassium 4.2 mmol/L (3.5-5.1) 04/01/24 16:40 Chloride 98 mmol/L (98-107) 04/01/24 16:40 Carbon Dioxide 32 mmol/L (22-29) H 04/01/24 16:40 Anion Gap 13.2 (5-19) 04/01/24 16:40 BUN 16 mg/dL (8-23) 04/01/24 16:40 Creatinine 1.0 mg/dL (0.5-0.9) H 04/01/24 16:40 GFR Calculation 55.6 mL/min (90-130) L 04/01/24 16:40 Glucose 110 mg/dL (65-115) 04/01/24 16:40 Calculated Osmolality 290 mOsm/kg (285-295) 04/01/24 16:40 Calcium 8.5 mg/dL (8.5-10.5) 04/01/24 16:40 Total Bilirubin 0.3 mg/dL (0.15-1.2) 04/01/24 16:40 AST 11 U/L (0-32) 04/01/24 16:40 ALT < 5 U/L (0-33) 04/01/24 16:40 Alkaline Phosphatase 113 U/L (35-105) H 04/01/24 16:40 Total Protein 7.3 g/dL (6.6-8.7) 04/01/24 16:40 Albumin 3.4 g/dL (3.5-5.2) L 04/01/24 16:40 Globulin 3.9 g/dL (1.3-4.6) 04/01/24 16:40 No radiology studies performed this visit Discharge Plan Discharge Patient Disposition: Home Clinical Impression: Acute lower gastrointestinal bleeding, Gastroenteritis Condition: Stable Prescriptions: No Action gabapentin 800 mg tablet 800 mg PO DAILY@12 aspirin [Adult Low Dose Aspirin] 81 mg tablet,delayed release (DR/EC) 81 mg PO DAILY@08 (DME) Wheeled walker with seat Large See Rx Instructions .Route .MEDSUPPLY Qty: 1 0RF Rx Instructions: Until no longer needed bisacodyl [Dulcolax (bisacodyl)] 5 mg tablet,delayed release (DR/EC) 10 mg PO DAILY PRN (Reason: Constipation) Rx Instructions: give if no results from mom Fleet Enema 19-7 gram/118 mL enema [address] DAILY PRN (Reason: Constipation) Rx Instructions: give if no results from mom and dulcolax magnesium hydroxide [Milk of Magnesia] 400 mg/5 mL suspension 30 ml PO DAILY PRN (Reason: Constipation) Rx Instructions: if no bm in 3 days go to dulcolax orders gabapentin 600 mg tablet 600 mg PO BID Qty: 60 10RF cholecalciferol (vitamin D3) [Vitamin D3] 125 mcg (5,000 unit) Tablet 125 mcg PO DAILY@08 bisacodyl [Dulcolax (bisacodyl)] 10 mg Suppository [address] DAILY PRN (Reason: Constipation) Rx Instructions: if no results from mom acetaminophen [Tylenol] 325 mg Tablet 650 mg PO Q6H PRN (Reason: Pain) carbidopa-levodopa 25-100 mg Tablet 1 tab PO BEDTIME loratadine [Claritin] 10 mg Tablet 10 mg PO DAILY@08 cyclobenzaprine 5 mg tablet 5 mg PO BID PRN (Reason: Muscle Spasm) carbidopa-levodopa [Sinemet] 25-100 mg tablet 2 tab PO TID@08,12,16 Nizoral A-D 1 % Shampoo See Rx Instructions .ROUTE .COMPLEX Rx Instructions: use as directed topically once a day on thu and insulin degludec [Tresiba FlexTouch U-100] 100 unit/mL (3 mL) insulin pen 35 unit SUBCUT BEDTIME Trulicity 3 mg/0.5 mL pen injector 3 mg SUBCUT Q7D Rx Instructions: on thursday nystatin 100,000 unit/gram powder See Rx Instructions .ROUTE .COMPLEX Rx Instructions: apply as directed topical every shift, cleanse under abdominal folds and r breast with ns dry thoroughly apply nystatin powder and apply wicking cloth insulin lispro [Humalog KwikPen Insulin] 100 unit/mL insulin pen See Rx Instructions .ROUTE .COMPLEX Rx Instructions: 12 units subcutaneously with meals and sliding scale with meals if blood sugar is less than 70 call md 150-200=0 units 201-250=2 units 251-300=4 units 301-350=6 units 351-400=8 units if blood sugar is greater than 400 give 8 units- call md call pcp bs <60 and >400 if symptomatic or 3 consecutive reading over 400 folic acid 1 mg Tablet 1 mg PO BID Qty: 60 0RF cyanocobalamin (vitamin B-12) 1,000 mcg tablet 1,000 mcg PO DAILY Qty: 30 0RF morphine concentrate 100 mg/5 mL (20 mg/mL) solution See Rx Instructions .ROUTE .COMPLEX Rx Instructions: 50 mg (0.5 ml) orally every 2 hours or 12 times daily as needed for pain. Santyl 250 unit/gram ointment See Rx Instructions .ROUTE .COMPLEX Rx Instructions: 1 applic topically once daily. Special instructions: cleanse sacral wound bed with NS and apply nickel thick layer of santyl to wound bed, apply rolled (kerlix) moist ns gauze in open space (pack) cover with bordered foam, change daily and PRN. Normal Saline Flush Syringe See Rx Instructions .ROUTE .COMPLEX Rx Instructions: 10 mL intravenously every shift, flush before and afer use polyethylene glycol 3350 17 gram Powder In Packet 17 g PO DAILY Qty: 90 0RF furosemide 40 mg tablet 40 mg PO DAILY PRN (Reason: Edema) Qty: 14 0RF hydrocodone-acetaminophen 5-325 mg tablet 1 - 2 tab PO Q6H PRN (Reason: Pain) citalopram 10 mg tablet 10 mg PO DAILY Discharge Orders: Discharge ED (Routine); Ordered 04/01/24 Ordered By: Jenn Wallace Referrals: Berta Barrett MD [Primary Care Provider] - 4-7 days Discharge Diet: Usual diet Discharge Activity: Increase activity as tolerated Patient Instructions: Rectal Bleeding (ED) Activity Restrictions/Additional Instructions: Thank you for choosing [facility] for your healthcare needs today. Please realize this is an emergency room and that we are providing you with a medical screening exam and this may not be complete and all inclusive of all the testing and or work up that you may need to determine your ailment or severity of your illness. You have been screened and evaluated and felt safe for discharge. Health conditions do change or evolve sometimes and as such it is important that you follow up with your Primary Doctor to be re checked, 3-5 days is a general good time frame for follow up. You are always welcome to return to the ED for re assessment if your symptoms are worsening or you have new concerns Coding Level of Care Code ED Dock Grader for Taurus Mccarthy
[2024-04-01 17:08] LABS: Basophils # 0.1 10^3/uL (0.0-0.1); Basophils % 0.5 %; Eosinophils # 0.3 10^3/uL (0.0-0.8); Eosinophils % 1.9 %; Hematocrit 37.6 % (36-47); Lymphocytes # 1.6 10^3/uL (0.8-4.8); Lymphocytes % 12.3 %; Mean Corpuscular HGB Conc 32.2 g/dL (30-55); Mean Corpuscular Hemoglobin 28.4 pg (27-33); Mean Corpuscular Volume 88.3 fl (85-98); Mean Platelet Volume 8.7 fL (7.4-10.4); Monocytes # 0.7 10^3/uL (0.2-0.9); Monocytes % 5.5 %; Neutrophils # 10.45 10^3/uL (1.8-7.7); Neutrophils % 79.3 %; Nucleated Red Blood Cells % 0 %; Platelet Count 345 10^3/cmm (157-399); Red Blood Count 4.26 10^6/uL (3.85-5.65); Red Cell Distribution Width 16.8 % (12.1-15.1); White Blood Count 13.18 10^3/uL (3.29-11.43)
[2024-04-01 17:16] LABS: INR 0.98 (0.8-1.2)
[2024-04-01 17:20] LABS: Alanine Aminotransferase < 5 U/L (0-33); Albumin Level 3.4 g/dL (3.5-5.2); Alkaline Phosphatase 113 U/L (35-105); Anion Gap 13.2 (5-19); Aspartate Amino Transferase 11 U/L (0-32); Blood Urea Nitrogen 16 mg/dL (8-23); Calcium 8.5 mg/dL (8.5-10.5); Carbon Dioxide 32 mmol/L (22-29); Chloride 98 mmol/L (98-107); Creatinine Clr Calc Pharmacy 64.3677; Globulin 3.9 g/dL (1.3-4.6); Glomerular Filtration Rate 55.6 mL/min (90-130); Glucose 110 mg/dL (65-115); Osmolality Calculated 290 mOsm/kg (285-295); Potassium 4.2 mmol/L (3.5-5.1); Sodium 139 mmol/L (136-145); Total Bilirubin 0.3 mg/dL (0.15-1.2); Total Protein 7.3 g/dL (6.6-8.7)
[2024-04-01 17:25] VITALS: BP 115/66; PULSE 82; O2SAT 90
[2024-04-01 17:55] VITALS: BP 121/58; PULSE 80; O2SAT 93
--- NOTE | 2024-04-01 17:59 | PC.NURSE ---
report called to valerie at [facility]
== END 2024-04-01 19:32 | disposition home or self-care (01) ==
PROVIDERS: Emergency Provider Emergency Medicine; PCP Family Medicine
DX: K52.9 Noninfective gastroenteritis and colitis, unspecified (principal); Z79.82 Long term (current) use of aspirin; Z79.85 Long-term (current) use of injectable non-insulin antidiabetic drugs; Z79.4 Long term (current) use of insulin; G20.A1 Parkinson's disease without dyskinesia, without mention of fluctuations; E11.40 Type 2 diabetes mellitus with diabetic neuropathy, unspecified; I10 Essential (primary) hypertension; E78.5 Hyperlipidemia, unspecified
CPT/HCPCS: 80053; 85025; 85610; 85730; 99283

== ENCOUNTER 2024-06-18 11:17 | Emergency (ER) | payer MEDICARE, MEDICAID, SELFPAY ==
[2024-06-18] VITALS (8 sets, daily range): BP systolic 128–157; BP diastolic 66–78; PULSE 65–69; RESP 18; TEMP 36.7; O2SAT 92–98; BMI 35.3
--- NOTE | 2024-06-18 11:21 | ED_ITS ---
HPI - Nausea/Vomiting/Diarrhea 2 General: Chief complaint: Nausea/Vomiting/Diarrhea Stated complaint: N/V Time Seen by Provider: 06/18/24 11:21 History of Present Illness: 64-year-old female presents to the [facility] ency room with complaints of nausea and vomiting for the last 2 weeks. Reported vomiting 6 times today denies hematochezia melena hematemesis calf cramps denies any dysuria urgency or frequency no abdominal pain at this. Decreased appetite the last few weeks. Denies chest pain or shortness of breath Associated nausea: Yes Associated symtoms: Reports nausea; Denies chest pain or dysuria Related Data Home Medications Medication Instructions Recorded Confirmed aspirin 81 mg tablet,delayed 81 mg PO DAILY@01/31/20 01/01/24 release (Adult Low Dose Aspirin) gabapentin 800 mg tablet 800 mg PO DAILY@01/31/20 01/01/24 cholecalciferol (vitamin D3) 125 125 mcg PO DAILY@01/22/22 01/01/24 mcg (5,000 unit) tablet (Vitamin D3) bisacodyl 5 mg tablet,delayed 10 mg PO DAILY PRN Constipation 06/17/22 01/01/24 release (Dulcolax (bisacodyl)) magnesium hydroxide 400 mg/5 mL 30 ml PO DAILY PRN Constipation 06/17/22 01/01/24 oral suspension (Milk of Magnesia) sodium phosphates 19 gram-7 118 ml KS DAILY PRN Constipation 06/17/22 01/01/24 gram/118 mL enema (Fleet Enema) acetaminophen 325 mg tablet 650 mg PO Q6H PRN Pain 06/23/22 01/01/24 (Tylenol) bisacodyl 10 mg rectal suppository 10 mg KS DAILY PRN Constipation 06/23/22 01/01/24 (Dulcolax (bisacodyl)) hydrocodone 5 mg-acetaminophen 325 1 - 2 tab PO Q6H PRN Pain 08/17/22 01/01/24 mg tablet carbidopa 25 mg-levodopa 100 mg 1 tab PO BEDTIME 09/06/23 01/01/24 tablet carbidopa 25 mg-levodopa 100 mg 2 tab PO TID@08,12,16 09/06/23 01/01/24 tablet (Sinemet) cyclobenzaprine 5 mg tablet 5 mg PO BID PRN Muscle Spasm 09/06/23 01/01/24 dulaglutide 3 mg/0.5 mL 3 mg SUBCUT Q7D 09/06/23 01/01/24 subcutaneous pen injector (Trulicity) insulin degludec 100 unit/mL (3 35 unit SUBCUT BEDTIME 09/06/23 01/01/24 mL) subcutaneous pen (Tresiba FlexTouch U-100 insulin) insulin lispro 100 unit/mL See Rx Instructions .Route .COMPLEX 09/06/23 01/01/24 subcutaneous pen (Humalog KwikPen (U-100) Insulin) ketoconazole 1 % shampoo (Nizoral See Rx Instructions .Route .COMPLEX 09/06/23 01/01/24 A-D) loratadine 10 mg tablet (Claritin) 10 mg PO DAILY@08 09/06/23 01/01/24 nystatin 100,000 unit/gram topical See Rx Instructions .Route .COMPLEX 09/06/23 01/01/24 powder citalopram 10 mg tablet 10 mg PO DAILY 09/29/23 01/01/24 collagenase clostridium histo. 250 See Rx Instructions .Route .COMPLEX 10/03/23 01/01/24 unit/gram topical ointment (Santyl) morphine concentrate 100 mg/5 mL See Rx Instructions .Route .COMPLEX 10/03/23 01/01/24 (20 mg/mL) oral solution sodium chloride 0.9 % (flush) See Rx Instructions .Route .COMPLEX 10/03/23 01/01/24 (Normal Saline Flush 0.9 % injection syringe) Previous Rx's Medication Instructions Recorded gabapentin 600 mg tablet 600 mg PO BID #60 tabs 11/06/21 Wheeled walker with seat #1 ea 10/06/22 cyanocobalamin (vitamin B-12) 1,000 mcg PO DAILY #30 tabs 09/11/23 1,000 mcg tablet folic acid 1 mg tablet 1 mg PO BID #60 tabs 09/11/23 furosemide 40 mg tablet 40 mg PO DAILY PRN Edema #14 tabs 10/04/23 polyethylene glycol 3350 17 gram 17 g PO DAILY #90 ea 10/04/23 oral powder packet cefdinir 300 mg capsule 300 mg PO BID #14 caps 06/18/24 promethazine 25 mg tablet 25 mg PO Q6H PRN nausea and 06/18/24 vomiting #20 tabs Allergies Allergy/AdvReac Type Severity Reaction Status Date / Time ampicillin Allergy Unknown Rash and Verified 01/01/24 15:45 Itching mushroom Allergy Unknown Verified 01/01/24 15:45 Review of Systems 2 Const: Denies: fever(s) or chills Card: Denies: chest pain Resp: Denies: dyspnea GI: Reports: nausea and vomiting; Denies: abdominal pain : Denies: dysuria, urinary frequency or urinary urgency Musc: Denies: neck pain or back pain Skin/Breast: Denies: rash PFSH ED 2 PFSH: Medical History DNR (do not resuscitate) From [facility] paperwork. Metabolic encephalopathy Sepsis Cellulitis Cellulitis UTI (urinary tract infection) Parkinson's disease Diabetes mellitus Hypertension Hyperlipidemia History of cataract Diabetic neuropathy Surgical History History of hand surgery Family History Other Cancer Diabetes Social History Smoking and tobacco/nicotine status: never used tobacco/nicotine Alcohol intake: never Substance/Drug Use: never Physical Exam 2 Const: COMMON NORMALS: no acute distress GENERAL APPEARANCE: cooperative and comfortable ORIENTATION/CONSCIOUSNESS: Yes awake, Yes oriented to person, Yes oriented to place and Yes oriented to time HENMT: COMMON NORMALS: normocephalic, atraumatic and hearing grossly normal bilaterally HEAD & SCALP: normocephalic and atraumatic Resp: COMMON NORMALS: normal respiratory effort, No retractions, No use of accessory muscles and clear to auscultation bilaterally AUSCULTATION: clear to auscultation bilaterally Cardio: COMMON NORMALS: regular rate, regular rhythm and No murmurs present (Cardio) RATE: regular rate RHYTHM: regular rhythm GI: COMMON NORMALS: Soft to palpation and No hepatosplenomegaly present A USCULTATION: Yes normoactive bowel sounds PALPATION: Yes Soft to palpation, No Tenderness to palpation present (GI), No Guarding due to palpation present (GI) and Yes No hepatosplenomegaly present Extremity: COMMON NORMALS: normal to inspection, capillary refill normal, no clubbing, cyanosis or edema, no calf tenderness and no pedal edema Neuro: SENSORIUM/ORIENTATION: Yes oriented to person, Yes oriented to place and Yes oriented to time Skin: COMMON NORMALS: no rashes or lesions noted GENERAL SKIN EXAM: no rashes or lesions noted Course 2 Vital Signs: Vital signs: Vital Signs Temperature 98.1 F 06/18/24 11:19 Pulse Rate 65 06/18/24 12:30 Respiratory Rate 18 06/18/24 11:19 Blood Pressure 140/76 06/18/24 12:30 Pulse Oximetry 95 06/18/24 12:30 Oxygen Delivery Me thod Room Air 06/18/24 12:30 MDM - Nausea/Vomiting/Diarrhea Medical Decision Making Patient has persistent nausea and vomiting with hypokalemia and a cystitis concerned about her ability to keep oral antibiotics down we gave her a gram of Rocephin here and offered admission. Patient is refusing admission she is adamant that she was cut back to the [place] [facility]. Will start on cefdinir tomorrow gave her prescription for promethazine if she has worsening symptoms could always return to be reevaluated for admission Lab Data 06/18/24 11:52 06/18/24 11:52 Radiology Impressions Abdomen/Pelvis CT 06/18/24 11:54 IMPRESSION: 1. No acute findings. 2. Bilateral nephrolithiasis 3. Periumbilical hernia Laboratory Results WBC 9.91 10^3/uL (3.29-11.43) 06/18/24 11:52 RBC 4.98 10^6/uL (3.85-5.65) 06/18/24 11:52 Hgb 14.20 g/dL (11.27-16.99) 06/18/24 11:52 Hct 43.4 % (36-47) 06/18/24 11:52 MCV 87.1 fl (85-98) 06/18/24 11:52 MCH 28.5 pg (27-33) 06/18/24 11:52 MCHC 32.7 g/dL (30-55) 06/18/24 11:52 RDW 14.6 % (12.1-15.1) 06/18/24 11:52 Plt Count 311 10^3/cmm (157-399) 06/18/24 11:52 MPV 9.6 fL (7.4-10.4) 06/18/24 11:52 Neut % (Auto) 88.3 % 06/18/24 11:52 Lymph % (Auto) 7.0 % 06/18/24 11:52 [place] % (Auto) 4.0 % 06/18/24 11:52 Eos % (Auto) 0.0 % 06/18/24 11:52 Baso % (Auto) 0.3 % 06/18/24 11:52 Neut # (Auto) 8.75 10^3/uL (1.8-7.7) H 06/18/24 11:52 Lymph # (Auto) 0.7 10^3/uL (0.8-4.8) L 06/18/24 11:52 [place] # (Auto) 0.4 10^3/uL (0.2-0.9) 06/18/24 11:52 Eos # (Auto) 0.0 10^3/uL (0.0-0.8) 06/18/24 11:52 Baso # (Auto) 0.0 10^3/uL (0.0-0.1) 06/18/24 11:52 Nucleated RBC % (auto) 0 % 06/18/24 11:52 Nucleated RBCs # 0.0 /100WBC 06/18/24 11:52 Sodium 138 mmol/L (136-145) 06/18/24 11:52 Potassium 3.4 mmol/L (3.5-5.1) L 06/18/24 11:52 Chloride 95 mmol/L (98-107) L 06/18/24 11:52 Carbon Dioxide 22 mmol/L (22-29) 06/18/24 11:52 Anion Gap 24.4 (5-19) H 06/18/24 11:52 BUN 17 mg/dL (8-23) 06/18/24 11:52 Creatinine 1.1 mg/dL (0.5-0.9) H 06/18/24 11:52 GFR Calculation 49.8 mL/min (90-130) L 06/18/24 11:52 Glucose 203 mg/dL (65-115) H 06/18/24 11:52 Calculated Osmolality 293 mOsm/kg (285-295) 06/18/24 11:52 Lactic Acid 1.9 mmol/L (0.5-2.2) 06/18/24 11:52 Calcium 9.2 mg/dL (8.5-10.5) 06/18/24 11:52 Total Bilirubin 0.8 mg/dL (0.15-1.2) 06/18/24 11:52 AST 6 U/L (0-32) 06/18/24 11:52 ALT < 5 U/L (0-33) 06/18/24 11:52 Alkaline Phosphatase 136 U/L (35-105) H 06/18/24 11:52 C-Reactive Protein 22.8 mg/L (0.0-4.9) H 06/18/24 11:52 Total Protein 7.4 g/dL (6.6-8.7) 06/18/24 11:52 Albumin 3.6 g/dL (3.5-5.2) 06/18/24 11:52 Globulin 3.8 g/dL (1.3-4.6) 06/18/24 11:52 Lipase 58 U/L (13-60) 06/18/24 11:52 Urine Color Dark yellow (Yellow) A 06/18/24 14:02 Urine Appearance Turbid (CLEAR) A 06/18/24 14: Urine pH 8.0 (5-7) A 06/18/24 14:02 Ur Specific [place] 1.020 (1.005-1.030) 06/18/24 14:02 Urine Protein 3+ (Negative) A 06/18/24 14: Urine Glucose (UA) Negative (Normal) 06/18/24 14:02 Urine Ketones 2+ (Negative) H 06/18/24 14:02 Urine Blood 1+ (Negative) A 06/18/24 14: Urine Nitrate Negative (Negative) 06/18/24 14: Urine Bilirubin 2+ (Negative) H 06/18/24 14:02 Urine Urobilinogen 1.0 mg/dL (Negative) 06/18/24 14:02 Ur Leukocyte Esterase 3+ (Negative) A 06/18/24 14:02 Urine RBC 21-50 /hpf (0-2) H 06/18/24 14:02 Urine WBC >100 /hpf (0-5) H 06/18/24 14:02 Ur Squamous Epith Cells 0-5 /hpf (0-5) 06/18/24 14:02 Triple Phos Crystals 0-4 /hpf H 06/18/24 14:02 Amorphous Sediment Not Reportable 06/18/24 14:02 Urine Bacteria 4+ /hpf (NONE) H 06/18/24 14:02 Hyaline Casts 56.02 /lpf 06/18/24 14:02 Urine Opiates Screen Positive ng/mL (Negative) H 06/18/24 14:02 Ur Barbiturates Screen Negative ng/mL (Negative) 06/18/24 14:02 Ur Phencyclidine Scrn Negative ng/mL (Negative) 06/18/24 14:02 Ur Amphetamines Screen Negative ng/mL (Negative) 06/18/24 14:02 U Benzodiazepines Scrn Negative ng/mL (Negative) 06/18/24 14:02 Urine Cocaine Screen Negative ng/mL (Negative) 06/18/24 14:02 U Marijuana (THC) Screen Negative ng/mL (Negative) 06/18/24 14:02 All radiology interpretation(s) finalized by discharge Discharge Plan Discharge Patient Disposition: Home Clinical Impression: UTI (urinary tract infection), Nausea & vomiting, Hypokalemia Condition: Stable Prescriptions: New cefdinir 300 mg capsule 300 mg PO BID Qty: 14 0RF promethazine 25 mg tablet 25 mg PO Q6H PRN (Reason: nausea and vomiting) Qty: 20 0RF No Action gabapentin 800 mg tablet 800 mg PO DAILY@12 aspirin [Adult Low Dose Aspirin] 81 mg tablet,delayed release (DR/EC) 81 mg PO DAILY@08 (DME) Wheeled walker with seat Large See Rx Instructions .Route .MEDSUPPLY Qty: 1 0RF Rx Instructions: Until no longer needed bisacodyl [Dulcolax (bisacodyl)] 5 mg tablet,delayed release (DR/EC) 10 mg PO DAILY PRN (Reason: Constipation) Rx Instructions: give if no results from mom Fleet Enema 19-7 gram/118 mL enema 118 ml KS DAILY PRN (Reason: Constipation) Rx Instructions: give if no results from mom and dulcolax magnesium hydroxide [Milk of Magnesia] 400 mg/5 mL suspension 30 ml PO DAILY PRN (Reason: Constipation) Rx Instructions: if no bm in 3 days go to dulcolax orders gabapentin 600 mg tablet 600 mg PO BID Qty: 60 10RF cholecalciferol (vitamin D3) [Vitamin D3] 125 mcg (5,000 unit) Tablet 125 mcg PO DAILY@08 bisacodyl [Dulcolax (bisacodyl)] 10 mg Suppository 10 mg KS DAILY PRN (Reason: Constipation) Rx Instructions: if no results from mom acetaminophen [Tylenol] 325 mg Tablet 650 mg PO Q6H PRN (Reason: Pain) carbidopa-levodopa 25-100 mg Tablet 1 tab PO BEDTIME loratadine [Claritin] 10 mg Tablet 10 mg PO DAILY@08 cyclobenzaprine 5 mg tablet 5 mg PO BID PRN (Reason: Muscle Spasm) carbidopa-levodopa [Sinemet] 25-100 mg tablet 2 tab PO TID@08,12,16 Nizoral A-D 1 % Shampoo See Rx Instructions .ROUTE .COMPLEX Rx Instructions: use as directed topically once a day on thu and insulin degludec [Tresiba FlexTouch U-100] 100 unit/mL (3 mL) insulin pen 35 unit SUBCUT BEDTIME Trulicity 3 mg/0.5 mL pen injector 3 mg SUBCUT Q7D Rx Instructions: on thursday nystatin 100,000 unit/gram powder See Rx Instructions .ROUTE .COMPLEX Rx Instructions: apply as directed topical every shift, cleanse under abdominal folds and r breast with ns dry thoroughly apply nystatin powder and apply wicking cloth insulin lispro [Humalog KwikPen Insulin] 100 unit/mL insulin pen See Rx Instructions .ROUTE .COMPLEX Rx Instructions: 12 units subcutaneously with meals and sliding scale with meals if blood sugar is less than 70 call md 150-200=0 units 201-250=2 units 251-300=4 units 301-350=6 units 351-400=8 units if blood sugar is greater than 400 give 8 units- call md call pcp bs <60 and >400 if symptomatic or 3 consecutive reading over 400 folic acid 1 mg Tablet 1 mg PO BID Qty: 60 0RF cyanocobalamin (vitamin B-12) 1,000 mcg tablet 1,000 mcg PO DAILY Qty: 30 0RF morphine concentrate 100 mg/5 mL (20 mg/mL) solution See Rx Instructions .ROUTE .COMPLEX Rx Instructions: 50 mg (0.5 ml) orally every 2 hours or 12 times daily as needed for pain. Santyl 250 unit/gram ointment See Rx Instructions .ROUTE .COMPLEX Rx Instructions: 1 applic topically once daily. Special instructions: cleanse sacral wound bed with NS and apply nickel thick layer of santyl to wound bed, apply rolled (kerlix) moist ns gauze in open space (pack) cover with bordered foam, change daily and PRN. Normal Saline Flush Syringe See Rx Instructions .ROUTE .COMPLEX Rx Instructions: 10 mL intravenously every shift, flush before and afer use polyethylene glycol 3350 17 gram Powder In Packet 17 g PO DAILY Qty: 90 0RF furosemide 40 mg tablet 40 mg PO DAILY PRN (Reason: Edema) Qty: 14 0RF hydrocodone-acetaminophen 5-325 mg tablet 1 - 2 tab PO Q6H PRN (Reason: Pain) citalopram 10 mg tablet 10 mg PO DAILY Discharge Orders: Discharge ED (Routine); Ordered 06/18/24 Ordered By: Kodak Burgess Referrals: Berta Barrett MD [Primary Care Provider] - Patient Instructions: Opioid Safety, Pain Management Activity Restrictions/Additional Instructions: Thank you for choosing [facility] for your healthcare needs today. It is very important that you follow up as instructed or that you return to the Emergency Department should you have concerns or if your condition changes or worsens in any way. You were seen in the emergency room for persistent nausea and vomiting. Your laboratory test showed a bladder infection. Because of the recurrent nausea and vomiting and low potassium we recommended that you stay here in the hospital. You declined and expressed your desire to go back to the [place] [facility]. You are given fluids and's potassium supplement in the emergency room. Recommend you start on cefdinir 1 pill twice a day beginning tomorrow. You should take this for a week. If your symptoms persist or worsen you can return. You were given an initial course of antibiotics in the emergency room today should start the oral antibiotics tomorrow Coding Level of Care Code ED Press Cutter for Taurus Mccarthy
--- NOTE | 2024-06-18 11:54 | CTR_ITS ---
PROCEDURE INFORMATION: Exam: CT Abdomen And Pelvis Without Contrast Exam date and time: 06/18/2024 12:22 PM Age: 64 years old Clinical indication: Abdominal pain; Generalized TECHNIQUE: Imaging protocol: Computed tomography of the abdomen and pelvis without contrast. Radiation optimization: All CT scans at this facility use at least one of these dose optimization techniques: automated exposure control; mA and/or kV adjustment per patient size (includes targeted exams where dose is matched to clinical indication); or iterative reconstruction. COMPARISON: CT abdomen pelvis w con* [id number] 06/23/2022 5:26 PM RADIATION DOSE METRICS: Total DLP (mGy-cm): 1151.84 FINDINGS: Lungs: Lung bases are clear. No pleural effusion. Liver: Normal. No mass. Gallbladder and biliary ducts: Normal. No calcified stones. No ductal dilation. Pancreas: Normal. No ductal dilation. Spleen: Normal. No splenomegaly. Adrenal glands: Normal. No mass. Kidneys and ureters: A few small stones are noted in the right kidney measuring up to 6 mm. A 6 mm left renal pelvis stone is also noted. I see no ureteral stone or hydronephrosis. Stomach and bowel: Unremarkable. No obstruction. No mucosal thickening. Appendix: No evidence of appendicitis. Intraperitoneal space: Unremarkable. No free air. No significant fluid collection. Vasculature: Unremarkable. No abdominal aortic aneurysm. Lymph nodes: Unremarkable. No enlarged lymph nodes. Urinary bladder: Unremarkable as visualized. Reproductive: Unremarkable as visualized. Bones/joints: Unremarkable. No acute fracture. Soft tissues: There is a small periumbilical hernia containing mesenteric fat. CT/CT abdomen pelvis wo con [id number] IMPRESSION: 1. No acute findings. 2. Bilateral nephrolithiasis 3. Periumbilical hernia
[2024-06-18 12:04] LABS: Basophils % 0.3 %; Hematocrit 43.4 % (36-47); Lymphocytes # 0.7 10^3/uL (0.8-4.8); Mean Corpuscular HGB Conc 32.7 g/dL (30-55); Mean Corpuscular Hemoglobin 28.5 pg (27-33); Mean Corpuscular Volume 87.1 fl (85-98); Mean Platelet Volume 9.6 fL (7.4-10.4); Monocytes # 0.4 10^3/uL (0.2-0.9); Neutrophils # 8.75 10^3/uL (1.8-7.7); Neutrophils % 88.3 %; Nucleated Red Blood Cells % 0 %; Platelet Count 311 10^3/cmm (157-399); Red Blood Count 4.98 10^6/uL (3.85-5.65); Red Cell Distribution Width 14.6 % (12.1-15.1); White Blood Count 9.91 10^3/uL (3.29-11.43)
[2024-06-18 12:24] LABS: Lactic Sepsis W/Reflex 1.9 mmol/L (0.5-2.2)
[2024-06-18 12:25] LABS: Alanine Aminotransferase < 5 U/L (0-33); Albumin Level 3.6 g/dL (3.5-5.2); Alkaline Phosphatase 136 U/L (35-105); Anion Gap 24.4 (5-19); Aspartate Amino Transferase 6 U/L (0-32); Blood Urea Nitrogen 17 mg/dL (8-23); C Reactive Protein 22.8 mg/L (0.0-4.9); Calcium 9.2 mg/dL (8.5-10.5); Carbon Dioxide 22 mmol/L (22-29); Chloride 95 mmol/L (98-107); Globulin 3.8 g/dL (1.3-4.6); Glomerular Filtration Rate 49.8 mL/min (90-130); Glucose 203 mg/dL (65-115); Lipase 58 U/L (13-60); Osmolality Calculated 293 mOsm/kg (285-295); Potassium 3.4 mmol/L (3.5-5.1); Sodium 138 mmol/L (136-145); Total Bilirubin 0.8 mg/dL (0.15-1.2); Total Protein 7.4 g/dL (6.6-8.7)
[2024-06-18 12:28] LABS: Creatinine Clr Calc Pharmacy 52.3822
[2024-06-18 14:23] LABS: Bilirubin Urine 2+ (Negative); Blood Urine 1+ (Negative); Glucose Urine UA Negative (Normal); Ketones Urine 2+ (Negative); Leukocyte Esterase Urine 3+ (Negative); Nitrate Urine Negative (Negative); Protein Urine 3+ (Negative); Urine Appearance Turbid (CLEAR); Urine Color Dark Yellow (Yellow)
[2024-06-18 14:29] LABS: Bacteria Urine 4+ /hpf; Hyaline Casts Urine 56.02 /lpf; RBC Urine 21-50 /hpf (0-2); Squamous Epithelial Cell Urine 0-5 /hpf (0-5); WBC Urine >100 /hpf (0-5)
[2024-06-18 14:36] LABS: Amphetamines Screen Urine Negative (Negative); Barbiturates Screen Urine Negative (Negative); Benzodiazepines Screen Urine Negative (Negative); Cocaine Screen Urine Negative (Negative); Opiate Screen Urine Positive (Negative); PCP Screen Urine Negative (Negative); THC Screen Urine Negative (Negative)
[2024-06-18 14:43] LABS: Add Urine Culture? Yes; Triple Phosphate Crystal Urine 0-4 /hpf
[2024-06-18] MEDS: sodium chloride 0.9% 1,000 ML 999 ML IV (14:58)
[2024-06-18] MEDS: potassium chloride oral liq 20 mEq/15 mL UDC 40 MEQ PO (14:59)
[2024-06-18] MEDS: cefTRIAXone 1,000 mg SDV 1000 MG IVP (15:28)
== END 2024-06-18 18:10 | disposition home or self-care (01) ==
PROVIDERS: Emergency Medicine; Emergency Provider Family Medicine; PCP Family Medicine
DX: N39.0 Urinary tract infection, site not specified (principal); R11.2 Nausea with vomiting, unspecified; E87.6 Hypokalemia; Z79.82 Long term (current) use of aspirin; Z79.4 Long term (current) use of insulin; Z79.85 Long-term (current) use of injectable non-insulin antidiabetic drugs; G20.A1 Parkinson's disease without dyskinesia, without mention of fluctuations; E11.40 Type 2 diabetes mellitus with diabetic neuropathy, unspecified; I10 Essential (primary) hypertension; E78.5 Hyperlipidemia, unspecified; Z87.440 Personal history of urinary (tract) infections
CPT/HCPCS: 36415; 74176; 80053; 80306; 81001; 83605; 83690; 85025; 86140; 87040; 87077; 87086; 87186; 96374; 99285; J0696; J7030

== ENCOUNTER → 2024-06-28 12:00 | Outpatient (BNVA) | payer MEDICARE, MEDICAID, SELFPAY | PROVIDERS: PCP Family Medicine; Visit Provider Specialist | DX: G20.B2 Parkinson's disease with dyskinesia, with fluctuations | CPT/HCPCS: 99214 ==

== ENCOUNTER 2025-08-31 17:50 | Emergency (ER) | payer MEDICARE, MEDICAID, SELFPAY ==
--- NOTE | 2025-08-31 17:42 | XRR_ITS ---
PROCEDURE INFORMATION: Exam: XR Abdomen Exam date and time: 08/31/2025 5:54 PM Age: 65 years old Clinical indication: Constipation; Additional info: Obstipation rule out obstruction TECHNIQUE: Imaging protocol: Radiologic exam of the abdomen. Views: Frontal supine view of the abdomen. 1 View. COMPARISON: No relevant prior studies available. FINDINGS: Gastrointestinal tract: Large fecal burden. No bowel dilation. Bones/joints: Unremarkable. XR/XR abdomen 1V* [id number] IMPRESSION: Large fecal burden.
[2025-08-31 17:53] VITALS: BP 144/58; PULSE 79; RESP 18; TEMP 37.2; O2SAT 95
--- OUTSIDE RECORDS SUMMARY | 2025-08-31 17:54 | XMS_ITS | Continuity of Care Document ---
Author Organization [facility] Address [address] [place] [address] Care Team Providers Care Reading Professor Name Role Phone Nicko ASM, Dr. Lopez Attending Physician Medications Medication Frequency Instructions Diagnosis Start Date End Date Last Administered acetaminophen 325 mg tablet Every 6 Hours - PRN 2 tabs (650mg), oral, Every 6 Hours - PRN, for pain or fever 06/09/2025 01:45 AM aspirin 81 mg tablet,chewable Once A Day 1 tab, oral, Once A Day 08/25/2025 07:21 AM atorvastatin 10 mg tablet At Bedtime 1 tab, oral, At Bedtime 08/25/2025 07:04 PM Calmoseptine (menthol-zinc oxide) 0.44-20.6 % ointment Every Shift 1 application, topical, Every Shift, to buttocks for prevention 08/25/2025 07:04 PM carbidopa-levodopa 25-100 mg tablet Three Times A Day 2 tabs (50-200mg), oral, Three Times A Day, at 8am, 12pm, 4pm 08/25/2025 04:25 PM carbidopa-levodopa 25-100 mg tablet At Bedtime 1 tab, oral, At Bedtime G20.B1 : Parkinson's disease with dyskinesia, without mention of fluctuations 08/25/2025 07:04 PM cholecalciferol (vitamin D3) 25 mcg (1,000 unit) tablet Once A Day 5 tabs (5000units), oral, Once A Day 08/25/2025 07:21 AM citalopram 10 mg tablet Once A Day 1 tab, oral, Once A Day F33.0 : Major depressive disorder, recurrent, mild 08/25/2025 07:21 AM cyanocobalamin (vitamin B-12) 1,000 mcg tablet Once A Day 1 tab, oral, Once A Day 08/25/2025 07:21 AM diclofenac sodium 1 % gel Three Times A Day - PRN 1 gram, topical, Three Times A Day - PRN, Apply 1 gram to bony areas 3x's daily prn pain 08/25/2025 10:39 AM gabapentin 800 mg tablet Once A Day 1 tab, oral, Once A Day, at 2pm 08/25/2025 01:33 PM gabapentin 600 mg tablet Twice A Day 1 tab, oral, Twice A Day 08/25/2025 07:04 PM insulin lispro 100 unit/mL insulin pen With Meals Per Sliding Scale, subcutaneous, With Meals, If Blood Sugar is less than 60, call MD.If Blood Sugar is 201 to 250, give 3 Units.If Blood Sugar is 251 to 300, give 4 Units.If Blood Sugar is 301 to 350, give 5 Units.If Blood Sugar is 351 to 400, give 6 Units.If Blood Sugar is greater than 400, give 8 Units., if less 60 or greater than 400 x 3 consecutive times or symptomatic call md 08/25/2025 04:42 PM loratadine 10 mg tablet Once A Day 1 tab, oral, Once A Day 08/25/2025 07:21 AM nystatin 100,000 unit/gram powder Once A Day - PRN 1 application, topical, Once A Day - PRN, Cleanse under abdominal folds and R breast with NS, dry thoroughly, apply nystatin powder, and apply wicking cloth. omeprazole 20 mg capsule,delayed release(DR/EC) Twice A Day 1 cap, oral, Twice A Day, ti pantoprazole 08/25/2025 04:25 PM oxycodone 10 mg tablet Every 8 Hours - PRN 1 tab, oral, Every 8 Hours - PRN, for pain, exempt R52 08/25/2025 03:44 AM promethazine 25 mg tablet Every 6 Hours - PRN 1 tab, oral, Every 6 Hours - PRN, for n/v spironolactone 50 mg tablet Once A Day 1 tab, oral, Once A Day 08/25/2025 07:21 AM tizanidine 4 mg tablet Three Times A Day - PRN 1 tab, oral, Three Times A Day - PRN, for muscle spasms 08/25/2025 01:29 PM Tresiba FlexTouch U-100 (insulin degludec) 100 unit/mL (3 mL) insulin pen At Bedtime 30 units, subcutaneous, At Bedtime 08/25/2025 10:07 PM Trulicity (dulaglutide) 3 mg/0.5 mL pen injector Once A Day on Thu 3mg (0.5mL), subcutaneous, Once A Day on Thu08/25/2025 07:21 AM Calmoseptine (menthol-zinc oxide) 0.44-20.6 % ointment Every Shift 1 application, topical, Every Shift, to buttocks for prevention 202408/15/2025 10:15 PM doxycycline hyclate 100 mg tablet Twice A Day 1, oral, Twice A Day 202407/29/2025 07:09 PM heparin lock flush (porcine) 100 unit/mL solution Twice A Day 3 ml, intravenous, Twice A Day, flush before and after use after the normal saline flush CHANGE TO CORRECT FREQ AND TIMES TO MIRROR IV MEDS 202408/09/2025 08:08 PM MediHoney (honey) (honey) 80 % gel Every Shift 1 application, topical, Every Shift, Coccyx: Cleanse area with NS and gauze, apply small amount of medi-honey to wound bed ONLY, and cover with foam. DO NOT get medi-homey on good skin this WILL cause breakdown. 202408/12/2025 07:13 PM meropenem 1 gram recon soln Every 8 Hours 1 gram, intravenous, Every 8 Hours, 1 gram q 8 hours x 5 days via IV 202408/09/2025 03:26 PM mupirocin 2 % ointment Three Times A Day 1 application, topical, Three Times A Day, apply to naval until redness resolved 202408/16/2025 08:20 AM Normal Saline Flush (sodium chloride 0.9 %) - syringe Every Shift 3 ml, injection, Every Shift 202408/10/2025 12:17 AM Normal Saline Flush (sodium chloride 0.9 %) - syringe As Needed 3 ml, injection, As Needed, Flush before and after use 2024 oxycodone 10 mg tablet Every 8 Hours - PRN 1 tab, oral, Every 8 Hours - PRN, for pain, exempt R52 202408/12/2025 06:47 AM oxycodone 5 mg tablet Every 8 Hours 2, oral, Every 8 Hours, EKIT qty 18 2024 tizanidine 4 mg tablet Once A Day - PRN 1 tab, oral, Once A Day - PRN, for muscle spasms 202408/02/2025 07:03 AM Triad Wound Dressing (wound dressings) - paste Every Shift sacrum, topical, Every Shift, Apply small amount to buttock q shift and brayan 025 202408/20/2025 07:03 PM Problems Code Type Problem ICD Code Effective Date Status ICD-10 Parkinson's disease with dyskinesia, without mention of fluctuations G20.B1 06/28/2024 Active ICD-10 Muscle weakness (generalized) M62.81 2024 Active ICD-10 Alzheimer's disease, unspecified G30.9 Active ICD-10 Dementia in other di seases classified elsewhere, mild, with mood disturbance F02.A3 11/09/2022 A ctive ICD-10 Major depressive disorder, recurrent, mild F33. 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 Z79.82 0 02/03/2022 Active ICD-10 Type 2 diabetes samuel itus with diabetic chronic kidney disease E11.22 01/05/2023 Active ICD-10 Type 2 diabetes samuel itus with diabetic neuropathy, unspecified E11.40 02/03/2022 Active ICD-10 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 Z79.4 0 04/29/2022 Active ICD-10 Other chcf (current) drug therapy Z79.899 02/03/2022 Active ICD-10 Other chronic pain G89.29 05/18/2023 Active ICD-10 Hyperlipidemia, unspecified E78.5 03/01/20 25 Active ICD-10 Unilateral primary osteoarthritis, left knee M1 7.12 02/27/2023 Active ICD-10 Deficiency of other specified B group vitamins E53.8 09/11/2023 Active ICD-10 Morbid (severe) obes ity due to excess calories E66.01 02/23/2025 Active ICD-10 Body mass index [BMI]40.0-44.9, adult Z68.41 02/23/2025 Active ICD-10 Other muscle spasm M62.838 03/23/2023 Active ICD-10 Gastro-esophageal re flux disease without esophagitis K21.9 02/05/2022 Active ICD-10 Do not resuscitate Z66 06/23/2022 Active ICD-10 Unspecified fracture of upper end of right humerus, subsequent encounter for fracture with routine healing S42.201D 02/03/2022 Active Current Allergies and Intolerances Category Substance Type Reaction Severity Begin Date Status Drug allergy ampicillin Allergy 02/03/2022 Activ e Food allergy mushroom Allergy 06/10/2023 Active Vital Signs Height: 62.0 in Date / Time Temperature Pulse (per minute) Respirations (per minute) Systolic BP (mmHg) Diastolic BP (mmHg) O2 Saturation (%) Weight BMI 2024 10:06 PM 95.0 2024 02:20 PM 224.6 lbs 41.0 8 2024 07:54 PM 96.0 2024 12:36 PM 97.0 2024 08:00 PM 97.0 2024 03:41 PM 218.2 lbs 39.9 2024 11:48 AM 19 116 67 97.0 2024 11:47 AM 98.1 F 67 2024 05:21 AM 94.0 2024 11:26 AM 96.0 2024 07:59 PM 94.0 2024 11:24 AM 98.0 2024 07:50 PM 96.0 2024 05:29 PM 97.0 F 83 19 151 82 2024 07:35 PM 218.8 lbs 40.0 1 2024 01:05 PM 219.0 lbs 40.0 5 2024 03:58 PM 219.0 lbs 40.0 5 2024 03:52 PM 220.0 lbs 40.2 3 2024 12:15 PM 219.4 lbs 40.1 2 2024 10:27 AM 62 15 131 73 2024 10:56 AM 98.3 F 61 18 101 76 2024 10:23 AM 97.8 F 85 16 109 50 2024 01:00 PM 98.0 F 80 17 124 63 2024 08:58 AM 239.6 lbs 43.8 2 2024 10:22 AM 97.0 F 82 17 116 60 2024 11:13 AM 96.9 F 72 18 120 66 2024 10:00 AM 97.0 F 84 16 146 78 2024 09:09 AM 237.0 lbs 43.3 4 2024 08:58 AM 237.1 lbs 43.3 6 2024 07:23 AM 97.1 F 66 14 125 63 2024 12:56 PM 236.7 lbs 43.2 9 2024 09:53 AM 236.0 lbs 43.1 6 2024 08:18 AM 237.2 lbs 43.3 8 2024 01:44 AM 98.0 F Advance Directives Directive Note Do Not Resuscitate (DNR) Insurance Providers Payer Policy type Group Name Group number Policy ID Address Ph one Medicare Part A Medicare Part A [id number] Phone: Fax: Medicare Adv. MAO PDPM - BCBS Like Medicare Part A [id number] [id number] [place] [address] Phone: Fax: Outlier - Mgd Care Part B - BCBS [place] Like Medicare Part B [id number] Phone: Fax: Outlier - Vaccines - BCBS Like Medicare Part B [id number] 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 Date Status Dose Series Complete COVID-19 Vaccine Pfizer-BioNTech 24-25 09/07/2024 Completed Unknown COVID-19 Vaccine Moderna 09/25/2022 Completed Booster Bivalent COVID-19 Vaccine 05/05/2022 Completed Booster 1 COVID-19 Vaccine Moderna 08/09/2021 Completed 2 Ye s COVID-19 Vaccine 07/12/2021 Completed 1 No COVID-19 Vaccine 06/21/2025 Refused Influenza Vaccine Alfuria 08/18/2024 Completed Influenza Vaccine Alfuria Quadrivalent 09/02/2023 Completed Influenza Vaccine Afluria 08/12/2022 Completed Influenza Vaccine 06/21/2025 Refused Pneumococcal Vaccine pfizer 08/18/2024 Completed 1 Yes Pneumococcal Vaccine 07/23/2023 Refused Pneumococcal Vaccine 08/01/2022 Refused RSV Vaccine Pfizer 09/03/2023 Completed RSV Vaccine 06/21/2025 Refused Procedures Not available for this record Results Name Date Time Positive/Negative Value Unit Range Blood Sugar 08/25/2025 09:49 PM 209.0 mg/dL Blood Sugar 08/25/2025 04:21 PM 218.0 mg/dL Blood Sugar 08/25/2025 11:36 AM 128.0 mg/dL Blood Sugar 08/25/2025 07:12 AM 208.0 mg/dL Blood Sugar 08/24/2025 06:56 PM 241.0 mg/dL Blood Sugar 08/24/2025 06:06 PM 189.0 mg/dL Blood Sugar 08/24/2025 12:34 PM 149.0 mg/dL Blood Sugar 08/23/2025 07:05 PM 244.0 mg/dL Blood Sugar 08/23/2025 05:43 PM 168.0 mg/dL Blood Sugar 08/23/2025 11:40 AM 326.0 mg/dL Blood Sugar 08/23/2025 09:57 AM 148.0 mg/dL Blood Sugar 08/22/2025 07:26 PM 222.0 mg/dL Blood Sugar 08/22/2025 04:16 PM 164.0 mg/dL Blood Sugar 08/22/2025 11:43 AM 247.0 mg/dL Blood Sugar 08/22/2025 11:42 AM 247.0 mg/dL Blood Sugar 08/22/2025 08:05 AM 172.0 mg/dL Blood Sugar 08/21/2025 07:28 PM 194.0 mg/dL Blood Sugar 08/21/2025 03:37 PM 235.0 mg/dL Blood Sugar 08/21/2025 11:24 AM 147.0 mg/dL Blood Sugar 08/21/2025 08:58 AM 143.0 mg/dL Blood Sugar 08/20/2025 07:42 PM 194.0 mg/dL Blood Sugar 08/20/2025 04:12 PM 142.0 mg/dL Blood Sugar 08/20/2025 11:17 AM 121.0 mg/dL Blood Sugar 08/20/2025 08:24 AM 140.0 mg/dL Blood Sugar 08/20/2025 07:38 AM 140.0 mg/dL Blood Sugar 08/20/2025 12:28 AM 133.0 mg/dL Blood Sugar 08/19/2025 04:53 PM 170.0 mg/dL Blood Sugar 08/19/2025 11:07 AM 195.0 mg/dL Blood Sugar 08/19/2025 07:47 AM 151.0 mg/dL Blood Sugar 08/19/2025 01:22 AM 161.0 mg/dL Blood Sugar 08/18/2025 03:27 PM 191.0 mg/dL Blood Sugar 08/18/2025 10:59 AM 273.0 mg/dL Blood Sugar 08/18/2025 10:54 AM 273.0 mg/dL Blood Sugar 08/18/2025 07:15 AM 199.0 mg/dL Blood Sugar 08/17/2025 07:33 PM 215.0 mg/dL Blood Sugar 08/17/2025 06:57 PM 178.0 mg/dL Blood Sugar 08/17/2025 06:57 PM 264.0 mg/dL Blood Sugar 08/17/2025 06:56 PM 178.0 mg/dL Blood Sugar 08/17/2025 06:56 PM 264.0 mg/dL Blood Sugar 08/17/2025 08:44 AM 288.0 mg/dL Blood Sugar 08/16/2025 07:00 PM 275.0 mg/dL Blood Sugar 08/16/2025 05:10 PM 296.0 mg/dL Blood Sugar 08/16/2025 12:36 PM 274.0 mg/dL Blood Sugar 08/16/2025 08:05 AM 279.0 mg/dL Blood Sugar 08/15/2025 07:34 PM 244.0 mg/dL Blood Sugar 08/15/2025 05:37 PM 261.0 mg/dL Blood Sugar 08/15/2025 02:10 PM 123.0 mg/dL Blood Sugar 08/15/2025 08:25 AM 104.0 mg/dL Blood Sugar 08/14/2025 07:07 PM 167.0 mg/dL Blood Sugar 08/14/2025 04:40 PM 225.0 mg/dL Blood Sugar 08/14/2025 11:26 AM 165.0 mg/dL Blood Sugar 08/14/2025 07:45 AM 126.0 mg/dL Blood Sugar 08/14/2025 12:03 AM 133.0 mg/dL Blood Sugar 08/13/2025 05:08 PM 152.0 mg/dL Blood Sugar 08/13/2025 04:53 PM 142.0 mg/dL Blood Sugar 08/13/2025 11:43 AM 201.0 mg/dL Blood Sugar 08/13/2025 08:36 AM 106.0 mg/dL Blood Sugar 08/12/2025 11:09 PM 196.0 mg/dL Blood Sugar 08/12/2025 05:38 PM 179.0 mg/dL Blood Sugar 08/12/2025 12:51 PM 167.0 mg/dL Blood Sugar 08/12/2025 09:02 AM 112.0 mg/dL Blood Sugar 08/12/2025 12:50 AM 151.0 mg/dL Blood Sugar 08/11/2025 04:00 PM 162.0 mg/dL Blood Sugar 08/11/2025 10:41 AM 127.0 mg/dL Blood Sugar 08/11/2025 07:23 AM 121.0 mg/dL Blood Sugar 08/10/2025 07:56 PM 161.0 mg/dL Blood Sugar 08/10/2025 05:39 PM 205.0 mg/dL Blood Sugar 08/10/2025 05:39 PM 205.0 mg/dL Blood Sugar 08/10/2025 11:29 AM 178.0 mg/dL Blood Sugar 08/10/2025 09:29 AM 134.0 mg/dL Blood Sugar 08/09/2025 07:30 PM 185.0 mg/dL Blood Sugar 08/09/2025 04:45 PM 167.0 mg/dL Blood Sugar 08/09/2025 03:59 PM 167.0 mg/dL Blood Sugar 08/09/2025 11:13 AM 149.0 mg/dL Blood Sugar 08/09/2025 07:00 AM 111.0 mg/dL Blood Sugar 08/08/2025 07:13 PM 233.0 mg/dL Blood Sugar 08/08/2025 04:19 PM 193.0 mg/dL Blood Sugar 08/08/2025 12:01 PM 174.0 mg/dL Blood Sugar 08/08/2025 08:44 AM 134.0 mg/dL Blood Sugar 08/07/2025 07:01 PM 154.0 mg/dL Blood Sugar 08/07/2025 04:42 PM 151.0 mg/dL Blood Sugar 08/07/2025 11:35 AM 139.0 mg/dL Blood Sugar 08/07/2025 07:36 AM 206.0 mg/dL Blood Sugar 08/06/2025 08:15 PM 182.0 mg/dL Blood Sugar 08/06/2025 03:40 PM 184.0 mg/dL Blood Sugar 08/06/2025 10:51 AM 182.0 mg/dL Blood Sugar 08/06/2025 07:36 AM 142.0 mg/dL Blood Sugar 08/05/2025 09:07 PM 183.0 mg/dL Blood Sugar 08/05/2025 04:26 PM 184.0 mg/dL Blood Sugar 08/05/2025 10:32 AM 155.0 mg/dL Blood Sugar 08/05/2025 07:27 AM 115.0 mg/dL Blood Sugar 08/04/2025 11:34 PM 103.0 mg/dL Blood Sugar 08/04/2025 04:01 PM 125.0 mg/dL Blood Sugar 08/04/2025 11:12 AM 143.0 mg/dL Blood Sugar 08/04/2025 07:26 AM 114.0 mg/dL Blood Sugar 08/04/2025 06:49 AM 114.0 mg/dL Blood Sugar 08/03/2025 09:31 PM 137.0 mg/dL Blood Sugar 08/03/2025 06:51 PM 148.0 mg/dL Blood Sugar 08/03/2025 12:29 PM 102.0 mg/dL Blood Sugar 08/03/2025 08:07 AM 132.0 mg/dL Blood Sugar 08/02/2025 11:19 PM 140.0 mg/dL Blood Sugar 08/02/2025 04:12 PM 123.0 mg/dL Blood Sugar 08/02/2025 01:05 PM 136.0 mg/dL Blood Sugar 08/02/2025 09:35 AM 107.0 mg/dL Blood Sugar 08/02/2025 08:00 AM 107.0 mg/dL Blood Sugar 08/01/2025 07:44 PM 145.0 mg/dL Blood Sugar 08/01/2025 05:30 PM 171.0 mg/dL Blood Sugar 08/01/2025 12:52 PM 143.0 mg/dL Blood Sugar 08/01/2025 07:59 AM 109.0 mg/dL Blood Sugar 07/31/2025 08:21 PM 159.0 mg/dL Blood Sugar 07/31/2025 03:51 PM 147.0 mg/dL Blood Sugar 07/31/2025 10:58 AM 147.0 mg/dL Blood Sugar 07/31/2025 07:06 AM 103.0 mg/dL Blood Sugar 07/30/2025 09:42 PM 124.0 mg/dL Blood Sugar 07/30/2025 07:06 PM 124.0 mg/dL Blood Sugar 07/30/2025 12:16 PM 120.0 mg/dL Blood Sugar 07/30/2025 09:08 AM 94.0 mg/dL Blood Sugar 07/29/2025 09:27 PM 163.0 mg/dL Blood Sugar 07/29/2025 05:58 PM 126.0 mg/dL Blood Sugar 07/29/2025 12:16 PM 134.0 mg/dL Blood Sugar 07/29/2025 08:54 AM 134.0 mg/dL Blood Sugar 07/28/2025 11:25 PM 88.0 mg/dL Blood Sugar 07/28/2025 03:27 PM 106.0 mg/dL Blood Sugar 07/28/2025 11:04 AM 136.0 mg/dL Blood Sugar 07/28/2025 06:52 AM 106.0 mg/dL Blood Sugar 07/27/2025 07:35 PM 111.0 mg/dL Blood Sugar 07/27/2025 05:14 PM 114.0 mg/dL Blood Sugar 07/27/2025 02:21 PM 158.0 mg/dL Blood Sugar 07/27/2025 02:21 PM 158.0 mg/dL Blood Sugar 07/27/2025 08:30 AM 140.0 mg/dL Blood Sugar 07/26/2025 08:42 PM 140.0 mg/dL Blood Sugar 07/26/2025 03:49 PM 155.0 mg/dL Blood Sugar 07/26/2025 03:30 PM 155.0 mg/dL Blood Sugar 07/26/2025 11:46 AM 265.0 mg/dL Blood Sugar 07/26/2025 06:35 AM 233.0 mg/dL Blood Sugar 07/25/2025 06:57 PM 241.0 mg/dL Blood Sugar 07/25/2025 04:39 PM 254.0 mg/dL Blood Sugar 07/25/2025 11:01 AM 174.0 mg/dL Blood Sugar 07/25/2025 08:55 AM 205.0 mg/dL Blood Sugar 07/25/2025 07:32 AM 205.0 mg/dL Blood Sugar 07/24/2025 07:38 PM 197.0 mg/dL Blood Sugar 07/24/2025 05:00 PM 169.0 mg/dL Blood Sugar 07/24/2025 12:38 PM 220.0 mg/dL Blood Sugar 07/24/2025 08:33 AM 229.0 mg/dL Blood Sugar 07/24/2025 12:45 AM 171.0 mg/dL Blood Sugar 07/23/2025 04:25 PM 169.0 mg/dL Blood Sugar 07/23/2025 04:25 PM 169.0 mg/dL Blood Sugar 07/23/2025 11:58 AM 159.0 mg/dL Blood Sugar 07/23/2025 07:34 AM 137.0 mg/dL Blood Sugar 07/22/2025 10:11 PM 230.0 mg/dL Blood Sugar 07/22/2025 04:09 PM 165.0 mg/dL Blood Sugar 07/22/2025 04:09 PM 165.0 mg/dL Blood Sugar 07/22/2025 11:08 AM 215.0 mg/dL Blood Sugar 07/22/2025 07:43 AM 165.0 mg/dL Blood Sugar 07/22/2025 07:43 AM 165.0 mg/dL Blood Sugar 07/21/2025 11:28 PM 242.0 mg/dL Blood Sugar 07/21/2025 03:40 PM 199.0 mg/dL Blood Sugar 07/21/2025 10:53 AM 166.0 mg/dL Blood Sugar 07/21/2025 06:41 AM 129.0 mg/dL Blood Sugar 07/20/2025 07:18 PM 220.0 mg/dL Blood Sugar 07/20/2025 05:50 PM 231.0 mg/dL Blood Sugar 07/20/2025 11:44 AM 241.0 mg/dL Blood Sugar 07/20/2025 08:18 AM 170.0 mg/dL Blood Sugar 07/19/2025 07:13 PM 230.0 mg/dL Blood Sugar 07/19/2025 03:36 PM 265.0 mg/dL Blood Sugar 07/19/2025 11:33 AM 219.0 mg/dL Blood Sugar 07/19/2025 07:41 AM 206.0 mg/dL Blood Sugar 07/18/2025 07:08 PM 242.0 mg/dL Blood Sugar 07/18/2025 03:50 PM 236.0 mg/dL Blood Sugar 07/18/2025 11:16 AM 190.0 mg/dL Blood Sugar 07/18/2025 06:54 AM 149.0 mg/dL Blood Sugar 07/17/2025 07:24 PM 314.0 mg/dL Blood Sugar 07/17/2025 04:16 PM 286.0 mg/dL Blood Sugar 07/17/2025 11:00 AM 190.0 mg/dL Blood Sugar 07/17/2025 07:46 AM 208.0 mg/dL Blood Sugar 07/17/2025 06:34 AM 208.0 mg/dL Blood Sugar 07/17/2025 12:25 AM 235.0 mg/dL Blood Sugar 07/16/2025 04:42 PM 363.0 mg/dL Blood Sugar 07/16/2025 04:42 PM 363.0 mg/dL Blood Sugar 07/16/2025 11:19 AM 196.0 mg/dL Blood Sugar 07/16/2025 11:18 AM 196.0 mg/dL Blood Sugar 07/16/2025 07:19 AM 161.0 mg/dL Blood Sugar 07/16/2025 07:18 AM 161.0 mg/dL Blood Sugar 07/16/2025 12:23 AM 214.0 mg/dL Blood Sugar 07/15/2025 04:17 PM 217.0 mg/dL Blood Sugar 07/15/2025 10:27 AM 185.0 mg/dL Blood Sugar 07/15/2025 06:50 AM 141.0 mg/dL Blood Sugar 07/14/2025 11:31 PM 174.0 mg/dL Blood Sugar 07/14/2025 04:04 PM 225.0 mg/dL Blood Sugar 07/14/2025 11:31 AM 175.0 mg/dL Blood Sugar 07/14/2025 08:00 AM 110.0 mg/dL Blood Sugar 07/13/2025 09:51 PM 143.0 mg/dL Blood Sugar 07/13/2025 04:02 PM 219.0 mg/dL Blood Sugar 07/13/2025 04:01 PM 219.0 mg/dL Blood Sugar 07/13/2025 11:38 AM 233.0 mg/dL Blood Sugar 07/13/2025 09:33 AM 218.0 mg/dL Blood Sugar 07/13/2025 09:32 AM 218.0 mg/dL Blood Sugar 07/12/2025 07:05 PM 209.0 mg/dL Blood Sugar 07/12/2025 03:57 PM 258.0 mg/dL Blood Sugar 07/12/2025 11:34 AM 204.0 mg/dL Blood Sugar 07/12/2025 06:46 AM 143.0 mg/dL Blood Sugar 07/11/2025 07:35 PM 225.0 mg/dL Blood Sugar 07/11/2025 03:43 PM 337.0 mg/dL Blood Sugar 07/11/2025 10:39 AM 261.0 mg/dL Blood Sugar 07/11/2025 06:28 AM 253.0 mg/dL Blood Sugar 07/10/2025 09:50 PM 161.0 mg/dL Blood Sugar 07/10/2025 03:39 PM 269.0 mg/dL Blood Sugar 07/10/2025 10:48 AM 213.0 mg/dL Blood Sugar 07/10/2025 08:20 AM 156.0 mg/dL Blood Sugar 07/10/2025 07:03 AM 156.0 mg/dL Blood Sugar 07/10/2025 12:00 AM 210.0 mg/dL Blood Sugar 07/09/2025 04:16 PM 233.0 mg/dL Blood Sugar 07/09/2025 10:49 AM 198.0 mg/dL Blood Sugar 07/09/2025 07:20 AM 145.0 mg/dL Blood Sugar 07/09/2025 06:30 AM 145.0 mg/dL Blood Sugar 07/08/2025 11:38 PM 172.0 mg/dL Blood Sugar 07/08/2025 03:53 PM 193.0 mg/dL Blood Sugar 07/08/2025 11:00 AM 165.0 mg/dL Blood Sugar 07/08/2025 07:20 AM 119.0 mg/dL Blood Sugar 07/07/2025 11:52 PM 183.0 mg/dL Blood Sugar 07/07/2025 04:54 PM 158.0 mg/dL Blood Sugar 07/07/2025 11:44 AM 146.0 mg/dL Blood Sugar 07/07/2025 06:56 AM 116.0 mg/dL Blood Sugar 07/06/2025 07:34 PM 214.0 mg/dL Blood Sugar 07/06/2025 05:08 PM 201.0 mg/dL Blood Sugar 07/06/2025 11:41 AM 143.0 mg/dL Blood Sugar 07/06/2025 09:17 AM 110.0 mg/dL Blood Sugar 07/05/2025 07:40 PM 161.0 mg/dL Blood Sugar 07/05/2025 04:03 PM 264.0 mg/dL Blood Sugar 07/05/2025 11:12 AM 260.0 mg/dL Blood Sugar 07/05/2025 07:21 AM 177.0 mg/dL Blood Sugar 07/04/2025 07:40 PM 182.0 mg/dL Blood Sugar 07/04/2025 03:54 PM 313.0 mg/dL Blood Sugar 07/04/2025 11:26 AM 359.0 mg/dL Blood Sugar 07/04/2025 07:29 AM 135.0 mg/dL Blood Sugar 07/03/2025 07:41 PM 249.0 mg/dL Blood Sugar 07/03/2025 04:29 PM 229.0 mg/dL Blood Sugar 07/03/2025 12:51 PM 299.0 mg/dL Blood Sugar 07/03/2025 07:50 AM 153.0 mg/dL Blood Sugar 07/02/2025 11:18 PM 242.0 mg/dL Blood Sugar 07/02/2025 05:36 PM 219.0 mg/dL Blood Sugar 07/02/2025 04:20 PM 219.0 mg/dL Blood Sugar 07/02/2025 11:56 AM 203.0 mg/dL Blood Sugar 07/02/2025 11:56 AM 203.0 mg/dL Blood Sugar 07/02/2025 07:38 AM 161.0 mg/dL Blood Sugar 07/02/2025 07:37 AM 161.0 mg/dL Blood Sugar 07/02/2025 12:23 AM 189.0 mg/dL Blood Sugar 07/01/2025 04:50 PM 241.0 mg/dL Blood Sugar 07/01/2025 04:50 PM 241.0 mg/dL Blood Sugar 07/01/2025 11:15 AM 230.0 mg/dL Blood Sugar 07/01/2025 11:11 AM 230.0 mg/dL Blood Sugar 07/01/2025 08:29 AM 281.0 mg/dL Blood Sugar 07/01/2025 08:27 AM 281.0 mg/dL Blood Sugar 06/30/2025 11:51 PM 255.0 mg/dL Blood Sugar 06/30/2025 03:58 PM 248.0 mg/dL Blood Sugar 06/30/2025 11:17 AM 167.0 mg/dL Blood Sugar 06/30/2025 06:51 AM 134.0 mg/dL Blood Sugar 06/29/2025 11:08 PM 187.0 mg/dL Blood Sugar 06/29/2025 05:11 PM 215.0 mg/dL Blood Sugar 06/29/2025 11:13 AM 305.0 mg/dL Blood Sugar 06/29/2025 07:52 AM 122.0 mg/dL Blood Sugar 06/28/2025 07:18 PM 171.0 mg/dL Blood Sugar 06/28/2025 03:54 PM 192.0 mg/dL Blood Sugar 06/28/2025 11:14 AM 240.0 mg/dL Blood Sugar 06/28/2025 06:50 AM 215.0 mg/dL Blood Sugar 06/27/2025 07:50 PM 253.0 mg/dL Blood Sugar 06/27/2025 04:21 PM 251.0 mg/dL Blood Sugar 06/27/2025 11:59 AM 195.0 mg/dL Blood Sugar 06/27/2025 09:19 AM 151.0 mg/dL Blood Sugar 06/26/2025 07:14 PM 216.0 mg/dL Blood Sugar 06/26/2025 04:13 PM 300.0 mg/dL Blood Sugar 06/26/2025 04:13 PM 300.0 mg/dL Blood Sugar 06/26/2025 11:19 AM 220.0 mg/dL Blood Sugar 06/26/2025 07:56 AM 151.0 mg/dL Blood Sugar 06/25/2025 08:42 PM 151.0 mg/dL Blood Sugar 06/25/2025 04:04 PM 184.0 mg/dL Blood Sugar 06/25/2025 11:40 AM 152.0 mg/dL Blood Sugar 06/25/2025 08:31 AM 138.0 mg/dL Blood Sugar 06/24/2025 09:36 PM 210.0 mg/dL Blood Sugar 06/24/2025 04:21 PM 316.0 mg/dL Blood Sugar 06/24/2025 11:18 AM 179.0 mg/dL Blood Sugar 06/24/2025 06:56 AM 134.0 mg/dL Blood Sugar 06/24/2025 02:07 AM 187.0 mg/dL Blood Sugar 06/23/2025 03:55 PM 181.0 mg/dL Blood Sugar 06/23/2025 11:20 AM 235.0 mg/dL Blood Sugar 06/23/2025 07:11 AM 108.0 mg/dL Blood Sugar 06/22/2025 07:47 PM 231.0 mg/dL Blood Sugar 06/22/2025 04:43 PM 213.0 mg/dL Blood Sugar 06/22/2025 11:22 AM 190.0 mg/dL Blood Sugar 06/22/2025 07:27 AM 142.0 mg/dL Blood Sugar 06/21/2025 07:20 PM 346.0 mg/dL Blood Sugar 06/21/2025 03:36 PM 284.0 mg/dL Blood Sugar 06/21/2025 11:06 AM 85.0 mg/dL Blood Sugar 06/21/2025 07:09 AM 170.0 mg/dL Blood Sugar 06/20/2025 07:07 PM 207.0 mg/dL Blood Sugar 06/20/2025 11:10 AM 180.0 mg/dL Blood Sugar 06/20/2025 07:18 AM 104.0 mg/dL Blood Sugar 06/19/2025 07:10 PM 80.0 mg/dL Blood Sugar 06/19/2025 05:13 PM 122.0 mg/dL Blood Sugar 06/19/2025 11:14 AM 156.0 mg/dL Blood Sugar 06/19/2025 07:26 AM 123.0 mg/dL Blood Sugar 06/18/2025 09:22 PM 150.0 mg/dL Blood Sugar 06/18/2025 03:57 PM 146.0 mg/dL Blood Sugar 06/18/2025 11:24 AM 281.0 mg/dL Blood Sugar 06/18/2025 07:10 AM 184.0 mg/dL Blood Sugar 06/17/2025 11:53 PM 210.0 mg/dL Blood Sugar 06/17/2025 04:38 PM 258.0 mg/dL Blood Sugar 06/17/2025 04:38 PM 258.0 mg/dL Blood Sugar 06/17/2025 11:38 AM 92.0 mg/dL Blood Sugar 06/17/2025 07:05 AM 100.0 mg/dL Blood Sugar 06/16/2025 11:04 PM 129.0 mg/dL Blood Sugar 06/16/2025 03:51 PM 158.0 mg/dL Blood Sugar 06/16/2025 11:30 AM 168.0 mg/dL Blood Sugar 06/16/2025 08:14 AM 106.0 mg/dL Blood Sugar 06/16/2025 07:07 AM 106.0 mg/dL Blood Sugar 06/15/2025 10:52 PM 184.0 mg/dL Blood Sugar 06/15/2025 03:45 PM 174.0 mg/dL Blood Sugar 06/15/2025 02:50 PM 115.0 mg/dL Blood Sugar 06/15/2025 10:45 AM 118.0 mg/dL Blood Sugar 06/15/2025 07:04 AM 115.0 mg/dL Blood Sugar 06/14/2025 07:02 PM 204.0 mg/dL Blood Sugar 06/14/2025 04:06 PM 279.0 mg/dL Blood Sugar 06/14/2025 11:41 AM 153.0 mg/dL Blood Sugar 06/14/2025 06:30 AM 93.0 mg/dL Blood Sugar 06/13/2025 07:59 PM 127.0 mg/dL Blood Sugar 06/13/2025 04:49 PM 168.0 mg/dL Blood Sugar 06/13/2025 01:07 PM 150.0 mg/dL Blood Sugar 06/13/2025 12:02 PM 174.0 mg/dL Blood Sugar 06/13/2025 09:58 AM 104.0 mg/dL Blood Sugar 06/12/2025 07:18 PM 137.0 mg/dL Blood Sugar 06/12/2025 01:03 PM 164.0 mg/dL Blood Sugar 06/12/2025 12:10 PM 164.0 mg/dL Blood Sugar 06/12/2025 07:41 AM 213.0 mg/dL Blood Sugar 06/12/2025 07:41 AM 213.0 mg/dL Blood Sugar 06/11/2025 08:24 PM 116.0 mg/dL Blood Sugar 06/11/2025 04:12 PM 208.0 mg/dL Blood Sugar 06/11/2025 11:08 AM 161.0 mg/dL Blood Sugar 06/11/2025 06:58 AM 117.0 mg/dL Blood Sugar 06/10/2025 10:49 PM 134.0 mg/dL Blood Sugar 06/10/2025 03:49 PM 234.0 mg/dL Blood Sugar 06/10/2025 11:20 AM 212.0 mg/dL Blood Sugar 06/10/2025 07:21 AM 108.0 mg/dL Blood Sugar 06/09/2025 10:39 PM 141.0 mg/dL Blood Sugar 06/09/2025 05:42 PM 201.0 mg/dL Blood Sugar 06/09/2025 11:33 AM 156.0 mg/dL Blood Sugar 06/09/2025 08:07 AM 88.0 mg/dL Blood Sugar 06/08/2025 06:52 PM 143.0 mg/dL Blood Sugar 06/08/2025 04:57 PM 188.0 mg/dL Blood Sugar 06/08/2025 12:02 PM 172.0 mg/dL Blood Sugar 06/08/2025 07:31 AM 100.0 mg/dL Blood Sugar 06/07/2025 07:06 PM 186.0 mg/dL Blood Sugar 06/07/2025 04:17 PM 253.0 mg/dL Blood Sugar 06/07/2025 11:33 AM 260.0 mg/dL Blood Sugar 06/07/2025 07:20 AM 108.0 mg/dL Blood Sugar 06/06/2025 06:46 PM 150.0 mg/dL Blood Sugar 06/06/2025 04:44 PM 142.0 mg/dL Blood Sugar 06/06/2025 04:44 PM 142.0 mg/dL Blood Sugar 06/06/2025 11:18 AM 227.0 mg/dL Blood Sugar 06/06/2025 11:17 AM 227.0 mg/dL Blood Sugar 06/06/2025 07:46 AM 106.0 mg/dL Blood Sugar 06/06/2025 07:45 AM 106.0 mg/dL Blood Sugar 06/05/2025 07:00 PM 260.0 mg/dL Blood Sugar 06/05/2025 04:03 PM 269.0 mg/dL Blood Sugar 06/05/2025 11:16 AM 160.0 mg/dL Blood Sugar 06/05/2025 07:07 AM 147.0 mg/dL Blood Sugar 06/05/2025 12:37 AM 226.0 mg/dL Blood Sugar 06/04/2025 04:11 PM 353.0 mg/dL Blood Sugar 06/04/2025 12:04 PM 178.0 mg/dL Blood Sugar 06/04/2025 08:09 AM 113.0 mg/dL Blood Sugar 06/03/2025 10:53 PM 119.0 mg/dL Blood Sugar 06/03/2025 04:14 PM 102.0 mg/dL Blood Sugar 06/03/2025 11:12 AM 163.0 mg/dL Blood Sugar 06/03/2025 07:29 AM 138.0 mg/dL Blood Sugar 06/03/2025 01:42 AM 156.0 mg/dL Blood Sugar 06/02/2025 03:52 PM 253.0 mg/dL Blood Sugar 06/02/2025 11:34 AM 234.0 mg/dL Blood Sugar 06/02/2025 07:04 AM 142.0 mg/dL Blood Sugar 06/01/2025 09:54 PM 231.0 mg/dL Blood Sugar 06/01/2025 12:18 PM 357.0 mg/dL Blood Sugar 06/01/2025 10:53 AM 336.0 mg/dL Blood Sugar 06/01/2025 10:52 AM 336.0 mg/dL Blood Sugar 06/01/2025 07:42 AM 145.0 mg/dL Blood Sugar 06/01/2025 07:40 AM 145.0 mg/dL Blood Sugar 05/31/2025 07:19 PM 292.0 mg/dL Blood Sugar 05/31/2025 05:37 PM 420.0 mg/dL Blood Sugar 05/31/2025 11:41 AM 432.0 mg/dL Blood Sugar 05/31/2025 07:58 AM 169.0 mg/dL Blood Sugar 05/30/2025 09:38 PM 347.0 mg/dL Blood Sugar 05/30/2025 04:13 PM 340.0 mg/dL Blood Sugar 05/30/2025 11:07 AM 264.0 mg/dL Blood Sugar 05/30/2025 08:43 AM 184.0 mg/dL Blood Sugar 05/29/2025 08:05 PM 284.0 mg/dL Blood Sugar 05/29/2025 06:48 PM 240.0 mg/dL Blood Sugar 05/29/2025 01:10 PM 334.0 mg/dL Blood Sugar 05/29/2025 08:33 AM 195.0 mg/dL Blood Sugar 05/28/2025 11:31 PM 157.0 mg/dL Blood Sugar 05/28/2025 04:15 PM 301.0 mg/dL Blood Sugar 05/28/2025 11:13 AM 274.0 mg/dL Blood Sugar 05/28/2025 07:57 AM 204.0 mg/dL Goals Goal Date Will have a BM at least ever y 3 days for 120 days since update/last review AND/OR will not experience any complications r/t to colostomy for 120 days from update/ last review AND/OR Will not experience any GI complications for 120 days since update/last review AND/OR Will remain clean, dry between incontinent episodes thru 120days from update/last review 08/30/2025 ADL approaches will meet the resident?s needs to enhance ability, maintain abilities, or provide quality. 08/30/2025 Advanced directives will be honored as outlined by patient/family on daily basis thru 120days from update/last review 08/30/2025 Miguelina will increase her ability to communic ate with staff and peers. 08/30/2025 Miguelina will maintain or improve nutritional status through next review 08/30/2025 Resident will be free of further falls. 08/30/2025 Resident will maintain voluntary movemen t, tone, and strength. 08/30/2025 Will have positive responses to activities of my choice weekly through next assessment. 08/30/2025 Resident's skin will remain intact. 08/10 Resident will verbalize relief of pain. 08/30/2025 Resident will not exhibit si gns of drug related sedation, hypotension, or anticholinergic symptoms. 08/30/2025 Resident will improve memory /recall ability as evidenced by recalling staff names, stating he/she is in a detention, recognizing staff faces, etc). 08/30/2025 Social History Subject Status Smoking status Never smoker Encounters Admission Date Discharge Date Description MRN Visit Count 02/03/2022 14:23 LTPAC Admission 4398 01
--- OUTSIDE RECORDS SUMMARY | 2025-08-31 17:55 | XMS_ITS | Continuity of Care Document ---
Author Organization [employer] [facility] ([facility]) Address [address] [place] [address] Insurance Providers Payer Plan Claims Address Claims Phone Policy Number Group Number Relation Employer Guarantor Name Guarantor Guarantor Address Guarantor Phone [employer] ADV [id number] Self Miguelina A Provow 1960 [address] [place] [address] MEDIC AID [id number] Self Miguelina A Provow [address] [place] [id number] Problems Condition ICD9 code ICD10 code SNOMED code Start Date End Date S tatus Parkinson's disease with dyskinesia, without mention of fluctuations G20.B1 06/28/2024 A ctive Alzheimer's disease, unspecified G30.9 02/05/2022 Active Dementia in other diseases classified elsewhere, mild, with mood disturbance F02.A3 11/09/2022 Active Major depressive disorder, recurrent, mild F33.0 09/03/2023 Active Dementia in other diseases classified elsewhere, mild, with anxiety F02.A4 11/09/2022 Active Generalized anxiety disorder F41.1 10/23/2022 Active Edema, unspecified R60.9 06/26/2022 Ac tive History of falling Z91.81 02/03/2022 Ac tive Hypertensive chronic kidney disease with stage 1 through stage 4 chronic kidney disease, or unspecified chronic kidney disease I12.9 01/05/2023 Active Chronic kidney disease, stage 3b N18.32 04/13/2023 Active continuous churn buttermaker (current) use of aspirin Z79.82 02/03/2022 Active Abnormal weight loss R63.4 08/31/2023 Active Type 2 diabetes mellitus with diabetic chronic kidney disease E11.22 01/05/2023 Active Type 2 diabetes mellitus with diabetic neuropathy, unspecified E11.40 02/03/2022 Active skilled nursing (current) use of insulin Z79.4 04/29/2022 Active Other continuous churn buttermaker (current) drug therapy Z79.899 02/03/2022 Active Other chronic pain G89.29 05/18/2023 Ac tive Unilateral primary osteoarthritis, left knee M17.12 02/27/2023 Active Deficiency of other specified B group vitamins E53.8 09/11/2023 Active Folate deficiency anemia, unspecified D52.9 11/05/2023 Active Other muscle spasm M62.838 03/23/2023 Ac tive Gastro-esophageal reflux disease without esophagitis K21.9 02/05/2022 Active Presence of right artificial shoulder joint Z96.611 02/03/2022 Active Do not resuscitate Z66 06/23/2022 Ac tive Unspecified fracture of upper end of right humerus, subsequent encounter for fracture with routine healing S42.201D 02/03/2022 Acti ve Muscle weakness (generalized) M62.81 12/23/2024 Active Pain in left shoulder M25.512 12/21/2024 Active Morbid (severe) obesity due to excess calories E66.01 02/23/2025 Ac tive Body mass index (BMI) 40.0-44.9, adult Z68.41 02/23/2025 Active Hyperlipidemia, unspecified E78.5 03/01/2025 Active Unspecified open wound of lower back and pelvis without penetration into retroperitoneum, subsequent encounter S31.000D 07/29/2025 Acti ve Muscle weakness (generalized) M62.81 08/18/2025 Active Results Test Result Date/Time Value / Unit Interp. Refere nce Range Blood chemistry[[id number]] Glucose [Mass/volume] in Serum or Plasma [2345-7] 08/31/2025 05:16 PM 302 mg/dL N Blood chemistry[[id number]] Glucose [Mass/volume] in Serum or Plasma [2345-7] 08/31/2025 09:05 AM 122 mg/dL N Blood chemistry[[id number]] Glucose [Mass/volume] in Serum or Plasma [2345-7] 08/31/2025 11:51 AM 133 mg/dL N Blood chemistry[[id number]] Glucose [Mass/volume] in Serum or Plasma [2345-7] 08/30/2025 12:37 PM 229 mg/dL N Blood chemistry[[id number]] Glucose [Mass/volume] in Serum or Plasma [2345-7] 08/30/2025 04:28 PM 245 mg/dL N Blood chemistry[[id number]] Glucose [Mass/volume] in Serum or Plasma [2345-7] 08/30/2025 02:43 PM 164 mg/dL N Blood chemistry[[id number]] Glucose [Mass/volume] in Serum or Plasma [2345-7] 08/30/2025 09:34 AM 215 mg/dL N Blood chemistry[[id number]] Glucose [Mass/volume] in Serum or Plasma [2345-7] 08/29/2025 12:41 PM 225 mg/dL N Blood chemistry[[id number]] Glucose [Mass/volume] in Serum or Plasma [2345-7] 08/29/2025 05:59 PM 199 mg/dL N Blood chemistry[[id number]] Glucose [Mass/volume] in Serum or Plasma [2345-7] 08/29/2025 09:14 AM 216 mg/dL N Blood chemistry[[id number]] Glucose [Mass/volume] in Serum or Plasma [2345-7] 08/29/2025 12:59 PM 200 mg/dL N Blood chemistry[[id number]] Glucose [Mass/volume] in Serum or Plasma [2345-7] 08/28/2025 12:59 PM 211 mg/dL N Blood chemistry[[id number]] Glucose [Mass/volume] in Serum or Plasma [2345-7] 08/28/2025 04:38 PM 187 mg/dL N Blood chemistry[[id number]] Glucose [Mass/volume] in Serum or Plasma [2345-7] 08/28/2025 09:24 AM 224 mg/dL N Blood chemistry[[id number]] Glucose [Mass/volume] in Serum or Plasma [2345-7] 08/28/2025 12:11 PM 137 mg/dL N Blood chemistry[[id number]] Glucose [Mass/volume] in Serum or Plasma [2345-7] 08/27/2025 04:09 PM 278 mg/dL N Blood chemistry[[id number]] Glucose [Mass/volume] in Serum or Plasma [2345-7] 08/27/2025 10:22 AM 206 mg/dL N Blood chemistry[[id number]] Glucose [Mass/volume] in Serum or Plasma [2345-7] 08/27/2025 06:59 AM 192 mg/dL N Blood chemistry[[id number]] Glucose [Mass/volume] in Serum or Plasma [2345-7] 08/27/2025 12:53 PM 159 mg/dL N Blood chemistry[[id number]] Glucose [Mass/volume] in Serum or Plasma [2345-7] 08/26/2025 03:29 PM 161 mg/dL N Blood chemistry[[id number]] Glucose [Mass/volume] in Serum or Plasma [2345-7] 08/26/2025 10:13 AM 201 mg/dL N Blood chemistry[[id number]] Glucose [Mass/volume] in Serum or Plasma [2345-7] 08/26/2025 05:17 PM 212 mg/dL N Blood chemistry[[id number]] Glucose [Mass/volume] in Serum or Plasma [2345-7] 08/26/2025 01:15 PM 160 mg/dL N Blood chemistry[[id number]] Glucose [Mass/volume] in Serum or Plasma [2345-7] 08/25/2025 02:49 PM 209 mg/dL N Blood chemistry[[id number]] Glucose [Mass/volume] in Serum or Plasma [2345-7] 08/25/2025 04:36 PM 128 mg/dL N Blood chemistry[[id number]] Glucose [Mass/volume] in Serum or Plasma [2345-7] 08/25/2025 09:21 AM 218 mg/dL N Blood chemistry[[id number]] Glucose [Mass/volume] in Serum or Plasma [2345-7] 08/25/2025 12:12 PM 208 mg/dL N Blood chemistry[[id number]] Glucose [Mass/volume] in Serum or Plasma [2345-7] 08/24/2025 11:56 AM 241 mg/dL N Blood chemistry[[id number]] Glucose [Mass/volume] in Serum or Plasma [2345-7] 08/24/2025 11:06 AM 189 mg/dL N Blood chemistry[[id number]] Glucose [Mass/volume] in Serum or Plasma [2345-7] 08/24/2025 05:34 PM 149 mg/dL N Blood chemistry[[id number]] Glucose [Mass/volume] in Serum or Plasma [2345-7] 08/23/2025 12:05 PM 244 mg/dL N Blood chemistry[[id number]] Glucose [Mass/volume] in Serum or Plasma [2345-7] 08/23/2025 10:43 AM 168 mg/dL N Blood chemistry[[id number]] Glucose [Mass/volume] in Serum or Plasma [2345-7] 08/23/2025 04:40 PM 326 mg/dL N Blood chemistry[[id number]] Glucose [Mass/volume] in Serum or Plasma [2345-7] 08/23/2025 02:57 PM 148 mg/dL N Blood chemistry[[id number]] Glucose [Mass/volume] in Serum or Plasma [2345-7] 08/22/2025 12:26 PM 222 mg/dL N Blood chemistry[[id number]] Glucose [Mass/volume] in Serum or Plasma [2345-7] 08/22/2025 04:43 PM 247 mg/dL N Blood chemistry[[id number]] Glucose [Mass/volume] in Serum or Plasma [2345-7] 08/22/2025 04:42 PM 247 mg/dL N Blood chemistry[[id number]] Glucose [Mass/volume] in Serum or Plasma [2345-7] 08/22/2025 09:16 AM 164 mg/dL N Blood chemistry[[id number]] Glucose [Mass/volume] in Serum or Plasma [2345-7] 08/22/2025 01:05 PM 172 mg/dL N Blood chemistry[[id number]] Glucose [Mass/volume] in Serum or Plasma [2345-7] 08/21/2025 12:28 PM 194 mg/dL N Blood chemistry[[id number]] Glucose [Mass/volume] in Serum or Plasma [2345-7] 08/21/2025 04:24 PM 147 mg/dL N Blood chemistry[[id number]] Glucose [Mass/volume] in Serum or Plasma [2345-7] 08/21/2025 08:37 AM 235 mg/dL N Blood chemistry[[id number]] Glucose [Mass/volume] in Serum or Plasma [2345-7] 08/21/2025 01:58 PM 143 mg/dL N Blood chemistry[[id number]] Glucose [Mass/volume] in Serum or Plasma [2345-7] 08/20/2025 12:42 PM 194 mg/dL N Blood chemistry[[id number]] Glucose [Mass/volume] in Serum or Plasma [2345-7] 08/20/2025 04:17 PM 121 mg/dL N Blood chemistry[[id number]] Glucose [Mass/volume] in Serum or Plasma [2345-7] 08/20/2025 09:12 AM 142 mg/dL N Blood chemistry[[id number]] Glucose [Mass/volume] in Serum or Plasma [2345-7] 08/20/2025 01:24 PM 140 mg/dL N Blood chemistry[[id number]] Glucose [Mass/volume] in Serum or Plasma [2345-7] 08/20/2025 12:38 PM 140 mg/dL N Blood chemistry[[id number]] Glucose [Mass/volume] in Serum or Plasma [2345-7] 08/20/2025 05:28 PM 133 mg/dL N Blood chemistry[[id number]] Glucose [Mass/volume] in Serum or Plasma [2345-7] 08/19/2025 04:07 PM 195 mg/dL N Blood chemistry[[id number]] Glucose [Mass/volume] in Serum or Plasma [2345-7] 08/19/2025 12:47 PM 151 mg/dL N Blood chemistry[[id number]] Glucose [Mass/volume] in Serum or Plasma [2345-7] 08/19/2025 09:53 AM 170 mg/dL N Blood chemistry[[id number]] Glucose [Mass/volume] in Serum or Plasma [2345-7] 08/19/2025 06:22 AM 161 mg/dL N Blood chemistry[[id number]] Glucose [Mass/volume] in Serum or Plasma [2345-7] 08/18/2025 03:59 PM 273 mg/dL N Blood chemistry[[id number]] Glucose [Mass/volume] in Serum or Plasma [2345-7] 08/18/2025 03:54 PM 273 mg/dL N Blood chemistry[[id number]] Glucose [Mass/volume] in Serum or Plasma [2345-7] 08/18/2025 08:27 AM 191 mg/dL N Blood chemistry[[id number]] Glucose [Mass/volume] in Serum or Plasma [2345-7] 08/18/2025 12:15 PM 199 mg/dL N Blood chemistry[[id number]] Glucose [Mass/volume] in Serum or Plasma [2345-7] 08/17/2025 12:33 PM 215 mg/dL N Blood chemistry[[id number]] Glucose [Mass/volume] in Serum or Plasma [2345-7] 08/17/2025 11:57 AM 178 mg/dL N Glucose [Mass/volume] in Serum or Plasma [2345-7] 08/17/2025 11:57 AM 264 mg/dL N Blood chemistry[[id number]] Glucose [Mass/volume] in Serum or Plasma [2345-7] 08/17/2025 11:56 AM 178 mg/dL N Glucose [Mass/volume] in Serum or Plasma [2345-7] 08/17/2025 11:56 AM 264 mg/dL N Blood chemistry[[id number]] Glucose [Mass/volume] in Serum or Plasma [2345-7] 08/17/2025 01:44 PM 288 mg/dL N Blood chemistry[[id number]] Glucose [Mass/volume] in Serum or Plasma [2345-7] 08/16/2025 12:00 PM 275 mg/dL N Blood chemistry[[id number]] Glucose [Mass/volume] in Serum or Plasma [2345-7] 08/16/2025 05:36 PM 274 mg/dL N Blood chemistry[[id number]] Glucose [Mass/volume] in Serum or Plasma [2345-7] 08/16/2025 10:10 AM 296 mg/dL N Blood chemistry[[id number]] Glucose [Mass/volume] in Serum or Plasma [2345-7] 08/16/2025 01:05 PM 279 mg/dL N Blood chemistry[[id number]] Glucose [Mass/volume] in Serum or Plasma [2345-7] 08/15/2025 12:34 PM 244 mg/dL N Blood chemistry[[id number]] Glucose [Mass/volume] in Serum or Plasma [2345-7] 08/15/2025 10:37 AM 261 mg/dL N Blood chemistry[[id number]] Glucose [Mass/volume] in Serum or Plasma [2345-7] 08/15/2025 07:10 AM 123 mg/dL N Blood chemistry[[id number]] Glucose [Mass/volume] in Serum or Plasma [2345-7] 08/15/2025 01:25 PM 104 mg/dL N Blood chemistry[[id number]] Glucose [Mass/volume] in Serum or Plasma [2345-7] 08/14/2025 12:07 PM 167 mg/dL N Blood chemistry[[id number]] Glucose [Mass/volume] in Serum or Plasma [2345-7] 08/14/2025 04:26 PM 165 mg/dL N Blood chemistry[[id number]] Glucose [Mass/volume] in Serum or Plasma [2345-7] 08/14/2025 09:40 AM 225 mg/dL N Blood chemistry[[id number]] Glucose [Mass/volume] in Serum or Plasma [2345-7] 08/14/2025 12:45 PM 126 mg/dL N Blood chemistry[[id number]] Glucose [Mass/volume] in Serum or Plasma [2345-7] 08/14/2025 05:03 PM 133 mg/dL N Blood chemistry[[id number]] Glucose [Mass/volume] in Serum or Plasma [2345-7] 08/13/2025 04:43 PM 201 mg/dL N Blood chemistry[[id number]] Glucose [Mass/volume] in Serum or Plasma [2345-7] 08/13/2025 10:08 AM 152 mg/dL N Blood chemistry[[id number]] Glucose [Mass/volume] in Serum or Plasma [2345-7] 08/13/2025 09:53 AM 142 mg/dL N Blood chemistry[[id number]] Glucose [Mass/volume] in Serum or Plasma [2345-7] 08/13/2025 01:36 PM 106 mg/dL N Blood chemistry[[id number]] Glucose [Mass/volume] in Serum or Plasma [2345-7] 08/12/2025 04:09 PM 196 mg/dL N Blood chemistry[[id number]] Glucose [Mass/volume] in Serum or Plasma [2345-7] 08/12/2025 10:38 AM 179 mg/dL N Blood chemistry[[id number]] Glucose [Mass/volume] in Serum or Plasma [2345-7] 08/12/2025 05:51 PM 167 mg/dL N Blood chemistry[[id number]] Glucose [Mass/volume] in Serum or Plasma [2345-7] 08/12/2025 02:02 PM 112 mg/dL N Blood chemistry[[id number]] Glucose [Mass/volume] in Serum or Plasma [2345-7] 08/12/2025 05:50 PM 151 mg/dL N Blood chemistry[[id number]] Glucose [Mass/volume] in Serum or Plasma [2345-7] 08/11/2025 03:41 PM 127 mg/dL N Blood chemistry[[id number]] Glucose [Mass/volume] in Serum or Plasma [2345-7] 08/11/2025 09:00 AM 162 mg/dL N Blood chemistry[[id number]] Glucose [Mass/volume] in Serum or Plasma [2345-7] 08/11/2025 12:23 PM 121 mg/dL N Blood chemistry[[id number]] Glucose [Mass/volume] in Serum or Plasma [2345-7] 08/10/2025 12:56 PM 161 mg/dL N Blood chemistry[[id number]] Glucose [Mass/volume] in Serum or Plasma [2345-7] 08/10/2025 10:39 AM 205 mg/dL N Glucose [Mass/volume] in Serum or Plasma [2345-7] 08/10/2025 10:39 AM 205 mg/dL N Blood chemistry[[id number]] Glucose [Mass/volume] in Serum or Plasma [2345-7] 08/10/2025 04:29 PM 178 mg/dL N Blood chemistry[[id number]] Glucose [Mass/volume] in Serum or Plasma [2345-7] 08/10/2025 02:29 PM 134 mg/dL N Blood chemistry[[id number]] Glucose [Mass/volume] in Serum or Plasma [2345-7] 08/09/2025 12:30 PM 185 mg/dL N Blood chemistry[[id number]] Glucose [Mass/volume] in Serum or Plasma [2345-7] 08/09/2025 04:13 PM 149 mg/dL N Blood chemistry[[id number]] Glucose [Mass/volume] in Serum or Plasma [2345-7] 08/09/2025 09:45 AM 167 mg/dL N Blood chemistry[[id number]] Glucose [Mass/volume] in Serum or Plasma [2345-7] 08/09/2025 08:59 AM 167 mg/dL N Blood chemistry[[id number]] Glucose [Mass/volume] in Serum or Plasma [2345-7] 08/09/2025 12:00 PM 111 mg/dL N Blood chemistry[[id number]] Glucose [Mass/volume] in Serum or Plasma [2345-7] 08/08/2025 12:13 PM 233 mg/dL N Blood chemistry[[id number]] Glucose [Mass/volume] in Serum or Plasma [2345-7] 08/08/2025 05:01 PM 174 mg/dL N Blood chemistry[[id number]] Glucose [Mass/volume] in Serum or Plasma [2345-7] 08/08/2025 09:19 AM 193 mg/dL N Blood chemistry[[id number]] Glucose [Mass/volume] in Serum or Plasma [2345-7] 08/08/2025 01:44 PM 134 mg/dL N Blood chemistry[[id number]] Glucose [Mass/volume] in Serum or Plasma [2345-7] 08/07/2025 12:01 PM 154 mg/dL N Blood chemistry[[id number]] Glucose [Mass/volume] in Serum or Plasma [2345-7] 08/07/2025 04:35 PM 139 mg/dL N Blood chemistry[[id number]] Glucose [Mass/volume] in Serum or Plasma [2345-7] 08/07/2025 09:42 AM 151 mg/dL N Blood chemistry[[id number]] Glucose [Mass/volume] in Serum or Plasma [2345-7] 08/07/2025 12:36 PM 206 mg/dL N Blood chemistry[[id number]] Glucose [Mass/volume] in Serum or Plasma [2345-7] 08/06/2025 01:15 PM 182 mg/dL N Blood chemistry[[id number]] Glucose [Mass/volume] in Serum or Plasma [2345-7] 08/06/2025 03:51 PM 182 mg/dL N Blood chemistry[[id number]] Glucose [Mass/volume] in Serum or Plasma [2345-7] 08/06/2025 08:40 AM 184 mg/dL N Blood chemistry[[id number]] Glucose [Mass/volume] in Serum or Plasma [2345-7] 08/06/2025 12:36 PM 142 mg/dL N Blood chemistry[[id number]] Glucose [Mass/volume] in Serum or Plasma [5-7] 08/05/2025 02:07 PM 183 mg/dL N Blood chemistry[[id number]] Glucose [Mass/volume] in Serum or Plasma [5-7] 08/05/2025 03:32 PM 155 mg/dL N Blood chemistry[[id number]] Glucose [Mass/volume] in Serum or Plasma [5-7] 08/05/2025 09:26 AM 184 mg/dL N Blood chemistry[[id number]] Glucose [Mass/volume] in Serum or Plasma [2345-7] 08/05/2025 12:27 PM 115 mg/dL N Blood chemistry[[id number]] Glucose [Mass/volume] in Serum or Plasma [2345-7] 08/04/2025 04:34 PM 103 mg/dL N Blood chemistry[[id number]] Glucose [Mass/volume] in Serum or Plasma [2345-7] 08/04/2025 04:12 PM 143 mg/dL N Blood chemistry[[id number]] Glucose [Mass/volume] in Serum or Plasma [2345-7] 08/04/2025 09:01 AM 125 mg/dL N Blood chemistry[[id number]] Glucose [Mass/volume] in Serum or Plasma [2345-7] 08/04/2025 12:26 PM 114 mg/dL N Blood chemistry[[id number]] Glucose [Mass/volume] in Serum or Plasma [2345-7] 08/04/2025 11:49 AM 114 mg/dL N Blood chemistry[[id number]] Glucose [Mass/volume] in Serum or Plasma [2345-7] 08/03/2025 02:31 PM 137 mg/dL N Blood chemistry[[id number]] Glucose [Mass/volume] in Serum or Plasma [2345-7] 08/03/2025 11:51 AM 148 mg/dL N Blood chemistry[[id number]] Glucose [Mass/volume] in Serum or Plasma [2345-7] 08/03/2025 05:29 PM 102 mg/dL N Blood chemistry[[id number]] Glucose [Mass/volume] in Serum or Plasma [2345-7] 08/03/2025 01:07 PM 132 mg/dL N Blood chemistry[[id number]] Glucose [Mass/volume] in Serum or Plasma [2345-7] 08/02/2025 04:19 PM 140 mg/dL N Blood chemistry[[id number]] Glucose [Mass/volume] in Serum or Plasma [2345-7] 08/02/2025 02:35 PM 107 mg/dL N Blood chemistry[[id number]] Glucose [Mass/volume] in Serum or Plasma [2345-7] 08/02/2025 01:00 PM 107 mg/dL N Blood chemistry[[id number]] Glucose [Mass/volume] in Serum or Plasma [2345-7] 08/02/2025 09:12 AM 123 mg/dL N Blood chemistry[[id number]] Glucose [Mass/volume] in Serum or Plasma [2345-7] 08/02/2025 06:05 AM 136 mg/dL N Blood chemistry[[id number]] Glucose [Mass/volume] in Serum or Plasma [2345-7] 08/01/2025 12:44 PM 145 mg/dL N Blood chemistry[[id number]] Glucose [Mass/volume] in Serum or Plasma [2345-7] 08/01/2025 10:30 AM 171 mg/dL N Blood chemistry[[id number]] Glucose [Mass/volume] in Serum or Plasma [2345-7] 08/01/2025 05:52 PM 143 mg/dL N Blood chemistry[[id number]] Glucose [Mass/volume] in Serum or Plasma [2345-7] 08/01/2025 12:59 PM 109 mg/dL N Blood chemistry[[id number]] Glucose [Mass/volume] in Serum or Plasma [2345-7] 07/31/2025 01:21 PM 159 mg/dL N Blood chemistry[[id number]] Glucose [Mass/volume] in Serum or Plasma [2345-7] 07/31/2025 03:58 PM 147 mg/dL N Blood chemistry[[id number]] Glucose [Mass/volume] in Serum or Plasma [2345-7] 07/31/2025 08:51 AM 147 mg/dL N Blood chemistry[[id number]] Glucose [Mass/volume] in Serum or Plasma [2345-7] 07/31/2025 12:06 PM 103 mg/dL N Blood chemistry[[id number]] Glucose [Mass/volume] in Serum or Plasma [2345-7] 07/30/2025 02:42 PM 124 mg/dL N Blood chemistry[[id number]] Glucose [Mass/volume] in Serum or Plasma [2345-7] 07/30/2025 12:06 PM 124 mg/dL N Blood chemistry[[id number]] Glucose [Mass/volume] in Serum or Plasma [2345-7] 07/30/2025 05:16 PM 120 mg/dL N Blood chemistry[[id number]] Glucose [Mass/volume] in Serum or Plasma [2345-7] 07/30/2025 02:08 PM 94 mg/dL N Blood chemistry[[id number]] Glucose [Mass/volume] in Serum or Plasma [2345-7] 07/29/2025 02:27 PM 163 mg/dL N Blood chemistry[[id number]] Glucose [Mass/volume] in Serum or Plasma [2345-7] 07/29/2025 10:58 AM 126 mg/dL N Blood chemistry[[id number]] Glucose [Mass/volume] in Serum or Plasma [2345-7] 07/29/2025 05:16 PM 134 mg/dL N Blood chemistry[[id number]] Glucose [Mass/volume] in Serum or Plasma [2345-7] 07/29/2025 01:54 PM 134 mg/dL N Blood chemistry[[id number]] Glucose [Mass/volume] in Serum or Plasma [2345-7] 07/28/2025 04:25 PM 88 mg/dL N Blood chemistry[[id number]] Glucose [Mass/volume] in Serum or Plasma [2345-7] 07/28/2025 04:04 PM 136 mg/dL N Blood chemistry[[id number]] Glucose [Mass/volume] in Serum or Plasma [2345-7] 07/28/2025 08:27 AM 106 mg/dL N Blood chemistry[[id number]] Glucose [Mass/volume] in Serum or Plasma [2345-7] 07/28/2025 11:52 AM 106 mg/dL N Blood chemistry[[id number]] Glucose [Mass/volume] in Serum or Plasma [2345-7] 07/27/2025 12:35 PM 111 mg/dL N Blood chemistry[[id number]] Glucose [Mass/volume] in Serum or Plasma [2345-7] 07/27/2025 10:14 AM 114 mg/dL N Blood chemistry[[id number]] Glucose [Mass/volume] in Serum or Plasma [2345-7] 07/27/2025 07:21 AM 158 mg/dL N Glucose [Mass/volume] in Serum or Plasma [2345-7] 07/27/2025 07:21 AM 158 mg/dL N Blood chemistry[[id number]] Glucose [Mass/volume] in Serum or Plasma [2345-7] 07/27/2025 01:30 PM 140 mg/dL N Blood chemistry[[id number]] Glucose [Mass/volume] in Serum or Plasma [2345-7] 07/26/2025 01:42 PM 140 mg/dL N Blood chemistry[[id number]] Glucose [Mass/volume] in Serum or Plasma [2345-7] 07/26/2025 04:46 PM 265 mg/dL N Blood chemistry[[id number]] Glucose [Mass/volume] in Serum or Plasma [2345-7] 07/26/2025 08:49 AM 155 mg/dL N Blood chemistry[[id number]] Glucose [Mass/volume] in Serum or Plasma [2345-7] 07/26/2025 08:30 AM 155 mg/dL N Blood chemistry[[id number]] Glucose [Mass/volume] in Serum or Plasma [2345-7] 07/26/2025 11:35 AM 233 mg/dL N Blood chemistry[[id number]] Glucose [Mass/volume] in Serum or Plasma [2345-7] 07/25/2025 11:57 AM 241 mg/dL N Blood chemistry[[id number]] Glucose [Mass/volume] in Serum or Plasma [2345-7] 07/25/2025 04:01 PM 174 mg/dL N Blood chemistry[[id number]] Glucose [Mass/volume] in Serum or Plasma [2345-7] 07/25/2025 09:39 AM 254 mg/dL N Blood chemistry[[id number]] Glucose [Mass/volume] in Serum or Plasma [2345-7] 07/25/2025 01:55 PM 205 mg/dL N Blood chemistry[[id number]] Glucose [Mass/volume] in Serum or Plasma [2345-7] 07/25/2025 12:32 PM 205 mg/dL N Blood chemistry[[id number]] Glucose [Mass/volume] in Serum or Plasma [2345-7] 07/24/2025 12:38 PM 197 mg/dL N Blood chemistry[[id number]] Glucose [Mass/volume] in Serum or Plasma [2345-7] 07/24/2025 05:38 PM 220 mg/dL N Blood chemistry[[id number]] Glucose [Mass/volume] in Serum or Plasma [2345-7] 07/24/2025 10:00 AM 169 mg/dL N Blood chemistry[[id number]] Glucose [Mass/volume] in Serum or Plasma [2345-7] 07/24/2025 01:33 PM 229 mg/dL N Blood chemistry[[id number]] Glucose [Mass/volume] in Serum or Plasma [2345-7] 07/24/2025 05:45 PM 171 mg/dL N Blood chemistry[[id number]] Glucose [Mass/volume] in Serum or Plasma [2345-7] 07/23/2025 04:58 PM 159 mg/dL N Blood chemistry[[id number]] Glucose [Mass/volume] in Serum or Plasma [2345-7] 07/23/2025 09:25 AM 169 mg/dL N Blood chemistry[[id number]] Glucose [Mass/volume] in Serum or Plasma [2345-7] 07/23/2025 12:34 PM 137 mg/dL N Blood chemistry[[id number]] Glucose [Mass/volume] in Serum or Plasma [2345-7] 07/22/2025 03:11 PM 230 mg/dL N Blood chemistry[[id number]] Glucose [Mass/volume] in Serum or Plasma [2345-7] 07/22/2025 04:08 PM 215 mg/dL N Blood chemistry[[id number]] Glucose [Mass/volume] in Serum or Plasma [2345-7] 07/22/2025 09:09 AM 165 mg/dL N Blood chemistry[[id number]] Glucose [Mass/volume] in Serum or Plasma [2345-7] 07/22/2025 12:43 PM 165 mg/dL N Glucose [Mass/volume] in Serum or Plasma [2345-7] 07/22/2025 12:43 PM 165 mg/dL N Blood chemistry[[id number]] Glucose [Mass/volume] in Serum or Plasma [2345-7] 07/21/2025 04:28 PM 242 mg/dL N Blood chemistry[[id number]] Glucose [Mass/volume] in Serum or Plasma [2345-7] 07/21/2025 03:53 PM 166 mg/dL N Blood chemistry[[id number]] Glucose [Mass/volume] in Serum or Plasma [2345-7] 07/21/2025 08:40 AM 199 mg/dL N Blood chemistry[[id number]] Glucose [Mass/volume] in Serum or Plasma [2345-7] 07/21/2025 11:41 AM 129 mg/dL N Blood chemistry[[id number]] Glucose [Mass/volume] in Serum or Plasma [2345-7] 07/20/2025 12:18 PM 220 mg/dL N Blood chemistry[[id number]] Glucose [Mass/volume] in Serum or Plasma [2345-7] 07/20/2025 10:50 AM 231 mg/dL N Blood chemistry[[id number]] Glucose [Mass/volume] in Serum or Plasma [2345-7] 07/20/2025 04:44 PM 241 mg/dL N Blood chemistry[[id number]] Glucose [Mass/volume] in Serum or Plasma [2345-7] 07/20/2025 01:18 PM 170 mg/dL N Blood chemistry[[id number]] Glucose [Mass/volume] in Serum or Plasma [2345-7] 07/19/2025 12:13 PM 230 mg/dL N Blood chemistry[[id number]] Glucose [Mass/volume] in Serum or Plasma [2345-7] 07/19/2025 04:33 PM 219 mg/dL N Blood chemistry[[id number]] Glucose [Mass/volume] in Serum or Plasma [2345-7] 07/19/2025 08:36 AM 265 mg/dL N Blood chemistry[[id number]] Glucose [Mass/volume] in Serum or Plasma [2345-7] 07/19/2025 12:41 PM 206 mg/dL N Blood chemistry[[id number]] Glucose [Mass/volume] in Serum or Plasma [2345-7] 07/18/2025 12:08 PM 242 mg/dL N Blood chemistry[[id number]] Glucose [Mass/volume] in Serum or Plasma [2345-7] 07/18/2025 04:16 PM 190 mg/dL N Blood chemistry[[id number]] Glucose [Mass/volume] in Serum or Plasma [2345-7] 07/18/2025 08:50 AM 236 mg/dL N Blood chemistry[[id number]] Glucose [Mass/volume] in Serum or Plasma [2345-7] 07/18/2025 11:54 AM 149 mg/dL N Blood chemistry[[id number]] Glucose [Mass/volume] in Serum or Plasma [2345-7] 07/17/2025 04:00 PM 190 mg/dL N Blood chemistry[[id number]] Glucose [Mass/volume] in Serum or Plasma [2345-7] 07/17/2025 12:24 PM 314 mg/dL N Blood chemistry[[id number]] Glucose [Mass/volume] in Serum or Plasma [2345-7] 07/17/2025 09:16 AM 286 mg/dL N Blood chemistry[[id number]] Glucose [Mass/volume] in Serum or Plasma [2345-7] 07/17/2025 12:46 PM 208 mg/dL N Blood chemistry[[id number]] Glucose [Mass/volume] in Serum or Plasma [2345-7] 07/17/2025 11:34 AM 208 mg/dL N Blood chemistry[[id number]] Glucose [Mass/volume] in Serum or Plasma [2345-7] 07/17/2025 05:25 PM 235 mg/dL N Blood chemistry[[id number]] Glucose [Mass/volume] in Serum or Plasma [2345-7] 07/16/2025 04:19 PM 196 mg/dL N Blood chemistry[[id number]] Glucose [Mass/volume] in Serum or Plasma [2345-7] 07/16/2025 04:18 PM 196 mg/dL N Blood chemistry[[id number]] Glucose [Mass/volume] in Serum or Plasma [2345-7] 07/16/2025 09:42 AM 363 mg/dL N Glucose [Mass/volume] in Serum or Plasma [2345-7] 07/16/2025 09:42 AM 363 mg/dL N Blood chemistry[[id number]] Glucose [Mass/volume] in Serum or Plasma [2345-7] 07/16/2025 12:19 PM 161 mg/dL N Blood chemistry[[id number]] Glucose [Mass/volume] in Serum or Plasma [2345-7] 07/16/2025 12:18 PM 161 mg/dL N Blood chemistry[[id number]] Glucose [Mass/volume] in Serum or Plasma [2345-7] 07/16/2025 05:23 PM 214 mg/dL N Blood chemistry[[id number]] Glucose [Mass/volume] in Serum or Plasma [2345-7] 07/15/2025 03:27 PM 185 mg/dL N Blood chemistry[[id number]] Glucose [Mass/volume] in Serum or Plasma [2345-7] 07/15/2025 09:17 AM 217 mg/dL N Blood chemistry[[id number]] Glucose [Mass/volume] in Serum or Plasma [2345-7] 07/15/2025 11:50 AM 141 mg/dL N Blood chemistry[[id number]] Glucose [Mass/volume] in Serum or Plasma [2345-7] 07/14/2025 04:31 PM 174 mg/dL N Glucose [Mass/volume] in Serum or Plasma [2345-7] 07/14/2025 04:31 PM 175 mg/dL N Blood chemistry[[id number]] Glucose [Mass/volume] in Serum or Plasma [2345-7] 07/14/2025 09:04 AM 225 mg/dL N Blood chemistry[[id number]] Glucose [Mass/volume] in Serum or Plasma [2345-7] 07/14/2025 01:00 PM 110 mg/dL N Blood chemistry[[id number]] Glucose [Mass/volume] in Serum or Plasma [2345-7] 07/13/2025 04:38 PM 233 mg/dL N Blood chemistry[[id number]] Glucose [Mass/volume] in Serum or Plasma [2345-7] 07/13/2025 02:51 PM 143 mg/dL N Blood chemistry[[id number]] Glucose [Mass/volume] in Serum or Plasma [2345-7] 07/13/2025 02:33 PM 218 mg/dL N Blood chemistry[[id number]] Glucose [Mass/volume] in Serum or Plasma [2345-7] 07/13/2025 02:32 PM 218 mg/dL N Blood chemistry[[id number]] Glucose [Mass/volume] in Serum or Plasma [2345-7] 07/13/2025 09:02 AM 219 mg/dL N Blood chemistry[[id number]] Glucose [Mass/volume] in Serum or Plasma [2345-7] 07/13/2025 09:01 AM 219 mg/dL N Blood chemistry[[id number]] Glucose [Mass/volume] in Serum or Plasma [2345-7] 07/12/2025 04:34 PM 204 mg/dL N Blood chemistry[[id number]] Glucose [Mass/volume] in Serum or Plasma [2345-7] 07/12/2025 12:05 PM 209 mg/dL N Blood chemistry[[id number]] Glucose [Mass/volume] in Serum or Plasma [2345-7] 07/12/2025 11:46 AM 143 mg/dL N Blood chemistry[[id number]] Glucose [Mass/volume] in Serum or Plasma [2345-7] 07/12/2025 08:57 AM 258 mg/dL N Blood chemistry[[id number]] Glucose [Mass/volume] in Serum or Plasma [2345-7] 07/11/2025 03:39 PM 261 mg/dL N Blood chemistry[[id number]] Glucose [Mass/volume] in Serum or Plasma [2345-7] 07/11/2025 12:35 PM 225 mg/dL N Blood chemistry[[id number]] Glucose [Mass/volume] in Serum or Plasma [2345-7] 07/11/2025 11:28 AM 253 mg/dL N Blood chemistry[[id number]] Glucose [Mass/volume] in Serum or Plasma [2345-7] 07/11/2025 08:43 AM 337 mg/dL N Blood chemistry[[id number]] Glucose [Mass/volume] in Serum or Plasma [2345-7] 07/10/2025 05:00 PM 210 mg/dL N Blood chemistry[[id number]] Glucose [Mass/volume] in Serum or Plasma [2345-7] 07/10/2025 03:48 PM 213 mg/dL N Blood chemistry[[id number]] Glucose [Mass/volume] in Serum or Plasma [2345-7] 07/10/2025 02:50 PM 161 mg/dL N Blood chemistry[[id number]] Glucose [Mass/volume] in Serum or Plasma [2345-7] 07/10/2025 01:20 PM 156 mg/dL N Blood chemistry[[id number]] Glucose [Mass/volume] in Serum or Plasma [2345-7] 07/10/2025 12:03 PM 156 mg/dL N Blood chemistry[[id number]] Glucose [Mass/volume] in Serum or Plasma [2345-7] 07/10/2025 08:39 AM 269 mg/dL N Blood chemistry[[id number]] Glucose [Mass/volume] in Serum or Plasma [2345-7] 07/09/2025 03:49 PM 198 mg/dL N Blood chemistry[[id number]] Glucose [Mass/volume] in Serum or Plasma [2345-7] 07/09/2025 12:20 PM 145 mg/dL N Blood chemistry[[id number]] Glucose [Mass/volume] in Serum or Plasma [2345-7] 07/09/2025 11:30 AM 145 mg/dL N Blood chemistry[[id number]] Glucose [Mass/volume] in Serum or Plasma [2345-7] 07/09/2025 09:16 AM 233 mg/dL N Blood chemistry[[id number]] Glucose [Mass/volume] in Serum or Plasma [2345-7] 07/08/2025 04:38 PM 172 mg/dL N Blood chemistry[[id number]] Glucose [Mass/volume] in Serum or Plasma [2345-7] 07/08/2025 04:00 PM 165 mg/dL N Blood chemistry[[id number]] Glucose [Mass/volume] in Serum or Plasma [2345-7] 07/08/2025 12:20 PM 119 mg/dL N Blood chemistry[[id number]] Glucose [Mass/volume] in Serum or Plasma [2345-7] 07/08/2025 08:53 AM 193 mg/dL N Blood chemistry[[id number]] Glucose [Mass/volume] in Serum or Plasma [2345-7] 07/07/2025 04:52 PM 183 mg/dL N Blood chemistry[[id number]] Glucose [Mass/volume] in Serum or Plasma [2345-7] 07/07/2025 04:44 PM 146 mg/dL N Blood chemistry[[id number]] Glucose [Mass/volume] in Serum or Plasma [2345-7] 07/07/2025 11:56 AM 116 mg/dL N Blood chemistry[[id number]] Glucose [Mass/volume] in Serum or Plasma [2345-7] 07/07/2025 09:54 AM 158 mg/dL N Blood chemistry[[id number]] Glucose [Mass/volume] in Serum or Plasma [2345-7] 07/06/2025 04:41 PM 143 mg/dL N Blood chemistry[[id number]] Glucose [Mass/volume] in Serum or Plasma [2345-7] 07/06/2025 02:17 PM 110 mg/dL N Blood chemistry[[id number]] Glucose [Mass/volume] in Serum or Plasma [2345-7] 07/06/2025 12:34 PM 214 mg/dL N Blood chemistry[[id number]] Glucose [Mass/volume] in Serum or Plasma [2345-7] 07/06/2025 10:08 AM 201 mg/dL N Blood chemistry[[id number]] Glucose [Mass/volume] in Serum or Plasma [2345-7] 07/05/2025 04:12 PM 260 mg/dL N Blood chemistry[[id number]] Glucose [Mass/volume] in Serum or Plasma [2345-7] 07/05/2025 12:40 PM 161 mg/dL N Blood chemistry[[id number]] Glucose [Mass/volume] in Serum or Plasma [2345-7] 07/05/2025 12:21 PM 177 mg/dL N Blood chemistry[[id number]] Glucose [Mass/volume] in Serum or Plasma [2345-7] 07/05/2025 09:03 AM 264 mg/dL N Blood chemistry[[id number]] Glucose [Mass/volume] in Serum or Plasma [2345-7] 07/04/2025 04:26 PM 359 mg/dL N Blood chemistry[[id number]] Glucose [Mass/volume] in Serum or Plasma [5-7] 07/04/2025 12:40 PM 182 mg/dL N Blood chemistry[[id number]] Glucose [Mass/volume] in Serum or Plasma [2345-7] 07/04/2025 12:29 PM 135 mg/dL N Blood chemistry[[id number]] Glucose [Mass/volume] in Serum or Plasma [2345-7] 07/04/2025 08:54 AM 313 mg/dL N Blood chemistry[[id number]] Glucose [Mass/volume] in Serum or Plasma [5-7] 07/03/2025 05:51 PM 299 mg/dL N Blood chemistry[[id number]] Glucose [Mass/volume] in Serum or Plasma [2345-7] 07/03/2025 12:50 PM 153 mg/dL N Blood chemistry[[id number]] Glucose [Mass/volume] in Serum or Plasma [2345-7] 07/03/2025 12:41 PM 249 mg/dL N Blood chemistry[[id number]] Glucose [Mass/volume] in Serum or Plasma [2345-7] 07/03/2025 09:29 AM 229 mg/dL N Blood chemistry[[id number]] Glucose [Mass/volume] in Serum or Plasma [5-7] 07/02/2025 05:23 PM 189 mg/dL N Blood chemistry[[id number]] Glucose [Mass/volume] in Serum or Plasma [2345-7] 07/02/2025 04:56 PM 203 mg/dL N Glucose [Mass/volume] in Serum or Plasma [2345-7] 07/02/2025 04:56 PM 203 mg/dL N Blood chemistry[[id number]] Glucose [Mass/volume] in Serum or Plasma [2345-7] 07/02/2025 04:18 PM 242 mg/dL N Blood chemistry[[id number]] Glucose [Mass/volume] in Serum or Plasma [2345-7] 07/02/2025 12:38 PM 161 mg/dL N Blood chemistry[[id number]] Glucose [Mass/volume] in Serum or Plasma [2345-7] 07/02/2025 12:37 PM 161 mg/dL N Blood chemistry[[id number]] Glucose [Mass/volume] in Serum or Plasma [2345-7] 07/02/2025 10:36 AM 219 mg/dL N Blood chemistry[[id number]] Glucose [Mass/volume] in Serum or Plasma [2345-7] 07/02/2025 09:20 AM 219 mg/dL N Blood chemistry[[id number]] Glucose [Mass/volume] in Serum or Plasma [2345-7] 07/01/2025 04:15 PM 230 mg/dL N Blood chemistry[[id number]] Glucose [Mass/volume] in Serum or Plasma [2345-7] 07/01/2025 04:11 PM 230 mg/dL N Blood chemistry[[id number]] Glucose [Mass/volume] in Serum or Plasma [2345-7] 07/01/2025 01:29 PM 281 mg/dL N Blood chemistry[[id number]] Glucose [Mass/volume] in Serum or Plasma [2345-7] 07/01/2025 01:27 PM 281 mg/dL N Blood chemistry[[id number]] Glucose [Mass/volume] in Serum or Plasma [2345-7] 07/01/2025 09:50 AM 241 mg/dL N Glucose [Mass/volume] in Serum or Plasma [2345-7] 07/01/2025 09:50 AM 241 mg/dL N Blood chemistry[[id number]] Glucose [Mass/volume] in Serum or Plasma [2345-7] 06/30/2025 04:51 PM 255 mg/dL N Blood chemistry[] Glucose [Mass/volume] in Serum or Plasma [2345-7] 06/30/2025 04:17 PM 167 mg/dL N Blood chemistry[] Glucose [Mass/volume] in Serum or Plasma [2345-7] 06/30/2025 11:51 AM 134 mg/dL N Blood chemistry[] Glucose [Mass/volume] in Serum or Plasma [2345-7] 06/30/2025 08:58 AM 248 mg/dL N Blood chemistry[] Glucose [Mass/volume] in Serum or Plasma [2345-7] 06/29/2025 04:13 PM 305 mg/dL N Blood chemistry[] Glucose [Mass/volume] in Serum or Plasma [2345-7] 06/29/2025 04:08 PM 187 mg/dL N Blood chemistry[] Glucose [Mass/volume] in Serum or Plasma [2345-7] 06/29/2025 12:52 PM 122 mg/dL N Blood chemistry[[id number]] Glucose [Mass/volume] in Serum or Plasma [2345-7] 06/29/2025 10:11 AM 215 mg/dL N Blood chemistry[[id number]] Glucose [Mass/volume] in Serum or Plasma [2345-7] 06/28/2025 04:14 PM 240 mg/dL N Blood chemistry[[id number]] Glucose [Mass/volume] in Serum or Plasma [2345-7] 06/28/2025 12:18 PM 171 mg/dL N Blood chemistry[[id number]] Glucose [Mass/volume] in Serum or Plasma [2345-7] 06/28/2025 11:50 AM 215 mg/dL N Blood chemistry[[id number]] Glucose [Mass/volume] in Serum or Plasma [2345-7] 06/28/2025 08:54 AM 192 mg/dL N Blood chemistry[[id number]] Glucose [Mass/volume] in Serum or Plasma [2345-7] 06/27/2025 04:59 PM 195 mg/dL N Blood chemistry[[id number]] Glucose [Mass/volume] in Serum or Plasma [2345-7] 06/27/2025 02:19 PM 151 mg/dL N Blood chemistry[[id number]] Glucose [Mass/volume] in Serum or Plasma [2345-7] 06/27/2025 12:50 PM 253 mg/dL N Blood chemistry[[id number]] Glucose [Mass/volume] in Serum or Plasma [2345-7] 06/27/2025 09:21 AM 251 mg/dL N Blood chemistry[[id number]] Glucose [Mass/volume] in Serum or Plasma [2345-7] 06/26/2025 04:19 PM 220 mg/dL N Blood chemistry[[id number]] Glucose [Mass/volume] in Serum or Plasma [2345-7] 06/26/2025 12:56 PM 151 mg/dL N Blood chemistry[[id number]] Glucose [Mass/volume] in Serum or Plasma [2345-7] 06/26/2025 12:14 PM 216 mg/dL N Blood chemistry[[id number]] Glucose [Mass/volume] in Serum or Plasma [2345-7] 06/26/2025 09:13 AM 300 mg/dL N Glucose [Mass/volume] in Serum or Plasma [2345-7] 06/26/2025 09:13 AM 300 mg/dL N Blood chemistry[[id number]] Glucose [Mass/volume] in Serum or Plasma [2345-7] 06/25/2025 04:40 PM 152 mg/dL N Blood chemistry[[id number]] Glucose [Mass/volume] in Serum or Plasma [2345-7] 06/25/2025 01:42 PM 151 mg/dL N Blood chemistry[[id number]] Glucose [Mass/volume] in Serum or Plasma [2345-7] 06/25/2025 01:31 PM 138 mg/dL N Blood chemistry[[id number]] Glucose [Mass/volume] in Serum or Plasma [2345-7] 06/25/2025 09:04 AM 184 mg/dL N Blood chemistry[[id number]] Glucose [Mass/volume] in Serum or Plasma [2345-7] 06/24/2025 04:18 PM 179 mg/dL N Blood chemistry[[id number]] Glucose [Mass/volume] in Serum or Plasma [2345-7] 06/24/2025 02:36 PM 210 mg/dL N Blood chemistry[[id number]] Glucose [Mass/volume] in Serum or Plasma [2345-7] 06/24/2025 11:56 AM 134 mg/dL N Blood chemistry[[id number]] Glucose [Mass/volume] in Serum or Plasma [2345-7] 06/24/2025 09:21 AM 316 mg/dL N Blood chemistry[[id number]] Glucose [Mass/volume] in Serum or Plasma [2345-7] 06/24/2025 07:07 AM 187 mg/dL N Blood chemistry[[id number]] Glucose [Mass/volume] in Serum or Plasma [2345-7] 06/23/2025 04:20 PM 235 mg/dL N Blood chemistry[[id number]] Glucose [Mass/volume] in Serum or Plasma [2345-7] 06/23/2025 12:11 PM 108 mg/dL N Blood chemistry[[id number]] Glucose [Mass/volume] in Serum or Plasma [2345-7] 06/23/2025 08:55 AM 181 mg/dL N Blood chemistry[[id number]] Glucose [Mass/volume] in Serum or Plasma [2345-7] 06/22/2025 04:22 PM 190 mg/dL N Blood chemistry[[id number]] Glucose [Mass/volume] in Serum or Plasma [2345-7] 06/22/2025 12:47 PM 231 mg/dL N Blood chemistry[[id number]] Glucose [Mass/volume] in Serum or Plasma [2345-7] 06/22/2025 12:27 PM 142 mg/dL N Blood chemistry[[id number]] Glucose [Mass/volume] in Serum or Plasma [2345-7] 06/22/2025 09:43 AM 213 mg/dL N Blood chemistry[[id number]] Glucose [Mass/volume] in Serum or Plasma [2345-7] 06/21/2025 04:06 PM 85 mg/dL N Blood chemistry[[id number]] Glucose [Mass/volume] in Serum or Plasma [2345-7] 06/21/2025 12:20 PM 346 mg/dL N Blood chemistry[[id number]] Glucose [Mass/volume] in Serum or Plasma [2345-7] 06/21/2025 12:09 PM 170 mg/dL N Blood chemistry[[id number]] Glucose [Mass/volume] in Serum or Plasma [2345-7] 06/21/2025 08:36 AM 284 mg/dL N Blood chemistry[[id number]] Glucose [Mass/volume] in Serum or Plasma [2345-7] 06/20/2025 04:10 PM 180 mg/dL N Blood chemistry[[id number]] Glucose [Mass/volume] in Serum or Plasma [2345-7] 06/20/2025 12:18 PM 104 mg/dL N Blood chemistry[[id number]] Glucose [Mass/volume] in Serum or Plasma [2345-7] 06/20/2025 12:07 PM 207 mg/dL N Blood chemistry[[id number]] Glucose [Mass/volume] in Serum or Plasma [2345-7] 06/19/2025 04:14 PM 156 mg/dL N Blood chemistry[[id number]] Glucose [Mass/volume] in Serum or Plasma [2345-7] 06/19/2025 12:26 PM 123 mg/dL N Blood chemistry[[id number]] Glucose [Mass/volume] in Serum or Plasma [2345-7] 06/19/2025 12:10 PM 80 mg/dL N Blood chemistry[[id number]] Glucose [Mass/volume] in Serum or Plasma [2345-7] 06/19/2025 10:13 AM 122 mg/dL N Blood chemistry[[id number]] Glucose [Mass/volume] in Serum or Plasma [2345-7] 06/18/2025 04:24 PM 281 mg/dL N Blood chemistry[[id number]] Glucose [Mass/volume] in Serum or Plasma [2345-7] 06/18/2025 02:22 PM 150 mg/dL N Blood chemistry[[id number]] Glucose [Mass/volume] in Serum or Plasma [2345-7] 06/18/2025 12:10 PM 184 mg/dL N Blood chemistry[[id number]] Glucose [Mass/volume] in Serum or Plasma [2345-7] 06/18/2025 08:57 AM 146 mg/dL N Blood chemistry[[id number]] Glucose [Mass/volume] in Serum or Plasma [2345-7] 06/17/2025 04:53 PM 210 mg/dL N Blood chemistry[[id number]] Glucose [Mass/volume] in Serum or Plasma [2345-7] 06/17/2025 04:38 PM 92 mg/dL N Blood chemistry[[id number]] Glucose [Mass/volume] in Serum or Plasma [2345-7] 06/17/2025 12:05 PM 100 mg/dL N Blood chemistry[[id number]] Glucose [Mass/volume] in Serum or Plasma [2345-7] 06/17/2025 09:38 AM 258 mg/dL N Glucose [Mass/volume] in Serum or Plasma [2345-7] 06/17/2025 09:38 AM 258 mg/dL N Blood chemistry[[id number]] Glucose [Mass/volume] in Serum or Plasma [2345-7] 06/16/2025 04:30 PM 168 mg/dL N Blood chemistry[[id number]] Glucose [Mass/volume] in Serum or Plasma [2345-7] 06/16/2025 04:04 PM 129 mg/dL N Blood chemistry[[id number]] Glucose [Mass/volume] in Serum or Plasma [2345-7] 06/16/2025 01:14 PM 106 mg/dL N Blood chemistry[[id number]] Glucose [Mass/volume] in Serum or Plasma [2345-7] 06/16/2025 12:07 PM 106 mg/dL N Blood chemistry[[id number]] Glucose [Mass/volume] in Serum or Plasma [2345-7] 06/16/2025 08:51 AM 158 mg/dL N Blood chemistry[[id number]] Glucose [Mass/volume] in Serum or Plasma [2345-7] 06/15/2025 03:52 PM 184 mg/dL N Blood chemistry[[id number]] Glucose [Mass/volume] in Serum or Plasma [2345-7] 06/15/2025 03:45 PM 118 mg/dL N Blood chemistry[[id number]] Glucose [Mass/volume] in Serum or Plasma [2345-7] 06/15/2025 12:04 PM 115 mg/dL N Blood chemistry[[id number]] Glucose [Mass/volume] in Serum or Plasma [2345-7] 06/15/2025 08:45 AM 174 mg/dL N Blood chemistry[[id number]] Glucose [Mass/volume] in Serum or Plasma [2345-7] 06/15/2025 07:50 AM 115 mg/dL N Blood chemistry[[id number]] Glucose [Mass/volume] in Serum or Plasma [2345-7] 06/14/2025 04:41 PM 153 mg/dL N Blood chemistry[[id number]] Glucose [Mass/volume] in Serum or Plasma [2345-7] 06/14/2025 12:02 PM 204 mg/dL N Blood chemistry[[id number]] Glucose [Mass/volume] in Serum or Plasma [2345-7] 06/14/2025 11:30 AM 93 mg/dL N Blood chemistry[[id number]] Glucose [Mass/volume] in Serum or Plasma [2345-7] 06/14/2025 09:06 AM 279 mg/dL N Blood chemistry[[id number]] Glucose [Mass/volume] in Serum or Plasma [2345-7] 06/13/2025 05:02 PM 174 mg/dL N Blood chemistry[[id number]] Glucose [Mass/volume] in Serum or Plasma [2345-7] 06/13/2025 02:58 PM 104 mg/dL N Blood chemistry[[id number]] Glucose [Mass/volume] in Serum or Plasma [2345-7] 06/13/2025 12:59 PM 127 mg/dL N Blood chemistry[[id number]] Glucose [Mass/volume] in Serum or Plasma [2345-7] 06/13/2025 09:49 AM 168 mg/dL N Blood chemistry[[id number]] Glucose [Mass/volume] in Serum or Plasma [2345-7] 06/13/2025 06:07 AM 150 mg/dL N Blood chemistry[[id number]] Glucose [Mass/volume] in Serum or Plasma [2345-7] 06/12/2025 05:10 PM 164 mg/dL N Blood chemistry[[id number]] Glucose [Mass/volume] in Serum or Plasma [2345-7] 06/12/2025 12:41 PM 213 mg/dL N Glucose [Mass/volume] in Serum or Plasma [2345-7] 06/12/2025 12:41 PM 213 mg/dL N Blood chemistry[[id number]] Glucose [Mass/volume] in Serum or Plasma [2345-7] 06/12/2025 12:18 PM 137 mg/dL N Blood chemistry[[id number]] Glucose [Mass/volume] in Serum or Plasma [2345-7] 06/12/2025 06:03 AM 164 mg/dL N Blood chemistry[[id number]] Glucose [Mass/volume] in Serum or Plasma [2345-7] 06/11/2025 04:08 PM 161 mg/dL N Blood chemistry[[id number]] Glucose [Mass/volume] in Serum or Plasma [2345-7] 06/11/2025 01:24 PM 116 mg/dL N Blood chemistry[[id number]] Glucose [Mass/volume] in Serum or Plasma [2345-7] 06/11/2025 11:58 AM 117 mg/dL N Blood chemistry[[id number]] Glucose [Mass/volume] in Serum or Plasma [2345-7] 06/11/2025 09:12 AM 208 mg/dL N Blood chemistry[[id number]] Glucose [Mass/volume] in Serum or Plasma [2345-7] 06/10/2025 04:20 PM 212 mg/dL N Blood chemistry[[id number]] Glucose [Mass/volume] in Serum or Plasma [2345-7] 06/10/2025 03:49 PM 134 mg/dL N Blood chemistry[[id number]] Glucose [Mass/volume] in Serum or Plasma [2345-7] 06/10/2025 12:21 PM 108 mg/dL N Blood chemistry[[id number]] Glucose [Mass/volume] in Serum or Plasma [2345-7] 06/10/2025 08:49 AM 234 mg/dL N Blood chemistry[[id number]] Glucose [Mass/volume] in Serum or Plasma [2345-7] 06/09/2025 04:33 PM 156 mg/dL N Blood chemistry[[id number]] Glucose [Mass/volume] in Serum or Plasma [2345-7] 06/09/2025 03:39 PM 141 mg/dL N Blood chemistry[[id number]] Glucose [Mass/volume] in Serum or Plasma [2345-7] 06/09/2025 01:07 PM 88 mg/dL N Blood chemistry[[id number]] Glucose [Mass/volume] in Serum or Plasma [2345-7] 06/09/2025 10:42 AM 201 mg/dL N Blood chemistry[[id number]] Glucose [Mass/volume] in Serum or Plasma [2345-7] 06/08/2025 05:02 PM 172 mg/dL N Blood chemistry[[id number]] Glucose [Mass/volume] in Serum or Plasma [2345-7] 06/08/2025 12:31 PM 100 mg/dL N Blood chemistry[[id number]] Glucose [Mass/volume] in Serum or Plasma [2345-7] 06/08/2025 11:52 AM 143 mg/dL N Blood chemistry[[id number]] Glucose [Mass/volume] in Serum or Plasma [2345-7] 06/08/2025 09:57 AM 188 mg/dL N Blood chemistry[[id number]] Glucose [Mass/volume] in Serum or Plasma [2345-7] 06/07/2025 04:33 PM 260 mg/dL N Blood chemistry[[id number]] Glucose [Mass/volume] in Serum or Plasma [2345-7] 06/07/2025 12:20 PM 108 mg/dL N Blood chemistry[[id number]] Glucose [Mass/volume] in Serum or Plasma [2345-7] 06/07/2025 12:06 PM 186 mg/dL N Blood chemistry[[id number]] Glucose [Mass/volume] in Serum or Plasma [2345-7] 06/07/2025 09:17 AM 253 mg/dL N Blood chemistry[[id number]] Glucose [Mass/volume] in Serum or Plasma [2345-7] 06/06/2025 04:18 PM 227 mg/dL N Blood chemistry[[id number]] Glucose [Mass/volume] in Serum or Plasma [2345-7] 06/06/2025 04:17 PM 227 mg/dL N Blood chemistry[[id number]] Glucose [Mass/volume] in Serum or Plasma [2345-7] 06/06/2025 12:46 PM 106 mg/dL N Blood chemistry[[id number]] Glucose [Mass/volume] in Serum or Plasma [2345-7] 06/06/2025 12:45 PM 106 mg/dL N Blood chemistry[[id number]] Glucose [Mass/volume] in Serum or Plasma [2345-7] 06/06/2025 11:46 AM 150 mg/dL N Blood chemistry[[id number]] Glucose [Mass/volume] in Serum or Plasma [2345-7] 06/06/2025 09:44 AM 142 mg/dL N Glucose [Mass/volume] in Serum or Plasma [2345-7] 06/06/2025 09:44 AM 142 mg/dL N Blood chemistry[[id number]] Glucose [Mass/volume] in Serum or Plasma [2345-7] 06/05/2025 05:37 PM 226 mg/dL N Blood chemistry[[id number]] Glucose [Mass/volume] in Serum or Plasma [2345-7] 06/05/2025 04:16 PM 160 mg/dL N Blood chemistry[[id number]] Glucose [Mass/volume] in Serum or Plasma [2345-7] 06/05/2025 12:07 PM 147 mg/dL N Blood chemistry[[id number]] Glucose [Mass/volume] in Serum or Plasma [2345-7] 06/05/2025 12:00 PM 260 mg/dL N Blood chemistry[[id number]] Glucose [Mass/volume] in Serum or Plasma [2345-7] 06/05/2025 09:03 AM 269 mg/dL N Blood chemistry[[id number]] Glucose [Mass/volume] in Serum or Plasma [2345-7] 06/04/2025 05:04 PM 178 mg/dL N Blood chemistry[[id number]] Glucose [Mass/volume] in Serum or Plasma [2345-7] 06/04/2025 01:09 PM 113 mg/dL N Blood chemistry[[id number]] Glucose [Mass/volume] in Serum or Plasma [2345-7] 06/04/2025 09:11 AM 353 mg/dL N Blood chemistry[[id number]] Glucose [Mass/volume] in Serum or Plasma [2345-7] 06/03/2025 04:12 PM 163 mg/dL N Blood chemistry[[id number]] Glucose [Mass/volume] in Serum or Plasma [2345-7] 06/03/2025 03:53 PM 119 mg/dL N Blood chemistry[[id number]] Glucose [Mass/volume] in Serum or Plasma [2345-7] 06/03/2025 12:29 PM 138 mg/dL N Blood chemistry[[id number]] Glucose [Mass/volume] in Serum or Plasma [2345-7] 06/03/2025 09:14 AM 102 mg/dL N Blood chemistry[[id number]] Glucose [Mass/volume] in Serum or Plasma [2345-7] 06/03/2025 06:42 AM 156 mg/dL N Blood chemistry[[id number]] Glucose [Mass/volume] in Serum or Plasma [2345-7] 06/02/2025 04:34 PM 234 mg/dL N Blood chemistry[[id number]] Glucose [Mass/volume] in Serum or Plasma [2345-7] 06/02/2025 12:04 PM 142 mg/dL N Blood chemistry[[id number]] Glucose [Mass/volume] in Serum or Plasma [2345-7] 06/02/2025 08:52 AM 253 mg/dL N Blood chemistry[[id number]] Glucose [Mass/volume] in Serum or Plasma [2345-7] 06/01/2025 05:18 PM 357 mg/dL N Blood chemistry[[id number]] Glucose [Mass/volume] in Serum or Plasma [2345-7] 06/01/2025 03:53 PM 336 mg/dL N Blood chemistry[[id number]] Glucose [Mass/volume] in Serum or Plasma [2345-7] 06/01/2025 03:52 PM 336 mg/dL N Blood chemistry[[id number]] Glucose [Mass/volume] in Serum or Plasma [2345-7] 06/01/2025 02:54 PM 231 mg/dL N Blood chemistry[[id number]] Glucose [Mass/volume] in Serum or Plasma [2345-7] 06/01/2025 12:42 PM 145 mg/dL N Blood chemistry[[id number]] Glucose [Mass/volume] in Serum or Plasma [2345-7] 06/01/2025 12:40 PM 145 mg/dL N Blood chemistry[[id number]] Glucose [Mass/volume] in Serum or Plasma [2345-7] 05/31/2025 04:41 PM 432 mg/dL N Blood chemistry[[id number]] Glucose [Mass/volume] in Serum or Plasma [2345-7] 05/31/2025 12:58 PM 169 mg/dL N Blood chemistry[[id number]] Glucose [Mass/volume] in Serum or Plasma [2345-7] 05/31/2025 12:19 PM 292 mg/dL N Blood chemistry[[id number]] Glucose [Mass/volume] in Serum or Plasma [2345-7] 05/31/2025 10:37 AM 420 mg/dL N Blood chemistry[[id number]] Glucose [Mass/volume] in Serum or Plasma [2345-7] 05/30/2025 04:07 PM 264 mg/dL N Blood chemistry[[id number]] Glucose [Mass/volume] in Serum or Plasma [2345-7] 05/30/2025 02:38 PM 347 mg/dL N Blood chemistry[[id number]] Glucose [Mass/volume] in Serum or Plasma [2345-7] 05/30/2025 01:43 PM 184 mg/dL N Blood chemistry[[id number]] Glucose [Mass/volume] in Serum or Plasma [2345-7] 05/30/2025 09:13 AM 340 mg/dL N Blood chemistry[[id number]] Glucose [Mass/volume] in Serum or Plasma [2345-7] 05/29/2025 01:33 PM 195 mg/dL N Blood chemistry[[id number]] Glucose [Mass/volume] in Serum or Plasma [2345-7] 05/29/2025 01:05 PM 284 mg/dL N Blood chemistry[[id number]] Glucose [Mass/volume] in Serum or Plasma [2345-7] 05/29/2025 11:48 AM 240 mg/dL N Blood chemistry[[id number]] Glucose [Mass/volume] in Serum or Plasma [2345-7] 05/29/2025 06:10 AM 334 mg/dL N Blood chemistry[[id number]] Glucose [Mass/volume] in Serum or Plasma [2345-7] 05/28/2025 05:04 PM 176 mg/dL N Blood chemistry[[id number]] Glucose [Mass/volume] in Serum or Plasma [2345-7] 05/28/2025 04:31 PM 157 mg/dL N Blood chemistry[[id number]] Glucose [Mass/volume] in Serum or Plasma [2345-7] 05/28/2025 04:13 PM 274 mg/dL N Blood chemistry[[id number]] Glucose [Mass/volume] in Serum or Plasma [2345-7] 05/28/2025 12:57 PM 204 mg/dL N Blood chemistry[[id number]] Glucose [Mass/volume] in Serum or Plasma [2345-7] 05/28/2025 09:15 AM 301 mg/dL N Blood chemistry[[id number]] Glucose [Mass/volume] in Serum or Plasma [2345-7] 05/27/2025 04:02 PM 194 mg/dL N Blood chemistry[[id number]] Glucose [Mass/volume] in Serum or Plasma [2345-7] 05/27/2025 01:13 PM 132 mg/dL N Blood chemistry[[id number]] Glucose [Mass/volume] in Serum or Plasma [2345-7] 05/27/2025 09:40 AM 384 mg/dL N Blood chemistry[[id number]] Glucose [Mass/volume] in Serum or Plasma [2345-7] 05/26/2025 03:40 PM 317 mg/dL N Blood chemistry[[id number]] Glucose [Mass/volume] in Serum or Plasma [2345-7] 05/26/2025 02:47 PM 171 mg/dL N Blood chemistry[[id number]] Glucose [Mass/volume] in Serum or Plasma [2345-7] 05/26/2025 11:07 AM 145 mg/dL N Blood chemistry[[id number]] Glucose [Mass/volume] in Serum or Plasma [2345-7] 05/26/2025 08:55 AM 400 mg/dL N Blood chemistry[[id number]] Glucose [Mass/volume] in Serum or Plasma [2345-7] 05/26/2025 08:53 AM 411 mg/dL N Blood chemistry[[id number]] Glucose [Mass/volume] in Serum or Plasma [2345-7] 05/25/2025 02:30 PM 101 mg/dL N Blood chemistry[[id number]] Glucose [Mass/volume] in Serum or Plasma [2345-7] 05/25/2025 12:55 PM 309 mg/dL N Blood chemistry[[id number]] Glucose [Mass/volume] in Serum or Plasma [2345-7] 05/25/2025 10:33 AM 166 mg/dL N Blood chemistry[[id number]] Glucose [Mass/volume] in Serum or Plasma [2345-7] 05/25/2025 06:42 AM 178 mg/dL N Blood chemistry[[id number]] Glucose [Mass/volume] in Serum or Plasma [2345-7] 05/24/2025 05:06 PM 299 mg/dL N Blood chemistry[[id number]] Glucose [Mass/volume] in Serum or Plasma [2345-7] 05/24/2025 01:14 PM 209 mg/dL N Blood chemistry[[id number]] Glucose [Mass/volume] in Serum or Plasma [2345-7] 05/24/2025 12:13 PM 169 mg/dL N Blood chemistry[[id number]] Glucose [Mass/volume] in Serum or Plasma [2345-7] 05/24/2025 09:27 AM 244 mg/dL N Blood chemistry[[id number]] Glucose [Mass/volume] in Serum or Plasma [2345-7] 05/23/2025 04:12 PM 291 mg/dL N Blood chemistry[[id number]] Glucose [Mass/volume] in Serum or Plasma [2345-7] 05/23/2025 01:35 PM 118 mg/dL N Blood chemistry[[id number]] Glucose [Mass/volume] in Serum or Plasma [2345-7] 05/23/2025 11:44 AM 299 mg/dL N Blood chemistry[[id number]] Glucose [Mass/volume] in Serum or Plasma [2345-7] 05/23/2025 10:14 AM 237 mg/dL N Blood chemistry[[id number]] Glucose [Mass/volume] in Serum or Plasma [2345-7] 05/22/2025 04:13 PM 220 mg/dL N Blood chemistry[[id number]] Glucose [Mass/volume] in Serum or Plasma [2345-7] 05/22/2025 01:00 PM 509 mg/dL N Blood chemistry[[id number]] Glucose [Mass/volume] in Serum or Plasma [2345-7] 05/22/2025 12:56 PM 179 mg/dL N Blood chemistry[[id number]] Glucose [Mass/volume] in Serum or Plasma [2345-7] 05/22/2025 11:43 AM 179 mg/dL N Blood chemistry[[id number]] Glucose [Mass/volume] in Serum or Plasma [2345-7] 05/22/2025 09:36 AM 255 mg/dL N Blood chemistry[[id number]] Glucose [Mass/volume] in Serum or Plasma [2345-7] 05/21/2025 04:13 PM 370 mg/dL N Blood chemistry[[id number]] Glucose [Mass/volume] in Serum or Plasma [2345-7] 05/21/2025 01:21 PM 170 mg/dL N Blood chemistry[[id number]] Glucose [Mass/volume] in Serum or Plasma [2345-7] 05/21/2025 01:06 PM 263 mg/dL N Blood chemistry[[id number]] Glucose [Mass/volume] in Serum or Plasma [2345-7] 05/21/2025 09:21 AM 288 mg/dL N Blood chemistry[[id number]] Glucose [Mass/volume] in Serum or Plasma [2345-7] 05/20/2025 05:29 PM 205 mg/dL N Blood chemistry[[id number]] Glucose [Mass/volume] in Serum or Plasma [2345-7] 05/20/2025 02:38 PM 223 mg/dL N Blood chemistry[[id number]] Glucose [Mass/volume] in Serum or Plasma [2345-7] 05/20/2025 12:25 PM 218 mg/dL N Blood chemistry[[id number]] Glucose [Mass/volume] in Serum or Plasma [2345-7] 05/20/2025 10:29 AM 367 mg/dL N Blood chemistry[[id number]] Glucose [Mass/volume] in Serum or Plasma [2345-7] 05/19/2025 03:46 PM 174 mg/dL N Blood chemistry[[id number]] Glucose [Mass/volume] in Serum or Plasma [2345-7] 05/19/2025 02:00 PM 260 mg/dL N Blood chemistry[[id number]] Glucose [Mass/volume] in Serum or Plasma [2345-7] 05/19/2025 12:49 PM 314 mg/dL N Blood chemistry[[id number]] Glucose [Mass/volume] in Serum or Plasma [2345-7] 05/19/2025 09:02 AM 249 mg/dL N Blood chemistry[[id number]] Glucose [Mass/volume] in Serum or Plasma [2345-7] 05/18/2025 03:35 PM 243 mg/dL N Blood chemistry[[id number]] Glucose [Mass/volume] in Serum or Plasma [2345-7] 05/18/2025 03:17 PM 193 mg/dL N Blood chemistry[[id number]] Glucose [Mass/volume] in Serum or Plasma [2345-7] 05/18/2025 12:57 PM 132 mg/dL N Blood chemistry[[id number]] Glucose [Mass/volume] in Serum or Plasma [2345-7] 05/18/2025 09:12 AM 243 mg/dL N Blood chemistry[[id number]] Glucose [Mass/volume] in Serum or Plasma [2345-7] 05/17/2025 04:11 PM 142 mg/dL N Blood chemistry[[id number]] Glucose [Mass/volume] in Serum or Plasma [2345-7] 05/17/2025 02:16 PM 124 mg/dL N Blood chemistry[[id number]] Glucose [Mass/volume] in Serum or Plasma [2345-7] 05/17/2025 11:40 AM 265 mg/dL N Blood chemistry[[id number]] Glucose [Mass/volume] in Serum or Plasma [2345-7] 05/17/2025 11:14 AM 124 mg/dL N Blood chemistry[[id number]] Glucose [Mass/volume] in Serum or Plasma [2345-7] 05/17/2025 09:35 AM 281 mg/dL N Blood chemistry[[id number]] Glucose [Mass/volume] in Serum or Plasma [2345-7] 05/17/2025 09:10 AM 281 mg/dL N Blood chemistry[[id number]] Glucose [Mass/volume] in Serum or Plasma [2345-7] 05/16/2025 05:12 PM 257 mg/dL N Blood chemistry[[id number]] Glucose [Mass/volume] in Serum or Plasma [2345-7] 05/16/2025 02:00 PM 88 mg/dL N Blood chemistry[[id number]] Glucose [Mass/volume] in Serum or Plasma [2345-7] 05/16/2025 01:58 PM 175 mg/dL N Blood chemistry[[id number]] Glucose [Mass/volume] in Serum or Plasma [2345-7] 05/16/2025 09:52 AM 115 mg/dL N Blood chemistry[[id number]] Glucose [Mass/volume] in Serum or Plasma [2345-7] 05/15/2025 05:38 PM 216 mg/dL N Blood chemistry[[id number]] Glucose [Mass/volume] in Serum or Plasma [2345-7] 05/15/2025 01:47 PM 148 mg/dL N Blood chemistry[[id number]] Glucose [Mass/volume] in Serum or Plasma [2345-7] 05/15/2025 01:27 PM 85 mg/dL N Blood chemistry[[id number]] Glucose [Mass/volume] in Serum or Plasma [2345-7] 05/15/2025 09:12 AM 176 mg/dL N Blood chemistry[[id number]] Glucose [Mass/volume] in Serum or Plasma [2345-7] 05/14/2025 04:55 PM 224 mg/dL N Blood chemistry[[id number]] Glucose [Mass/volume] in Serum or Plasma [2345-7] 05/14/2025 04:35 PM 138 mg/dL N Blood chemistry[[id number]] Glucose [Mass/volume] in Serum or Plasma [2345-7] 05/14/2025 02:38 PM 158 mg/dL N Blood chemistry[[id number]] Glucose [Mass/volume] in Serum or Plasma [2345-7] 05/14/2025 10:00 AM 125 mg/dL N Blood chemistry[[id number]] Glucose [Mass/volume] in Serum or Plasma [2345-7] 05/13/2025 04:30 PM 147 mg/dL N Blood chemistry[[id number]] Glucose [Mass/volume] in Serum or Plasma [2345-7] 05/13/2025 12:49 PM 259 mg/dL N Blood chemistry[[id number]] Glucose [Mass/volume] in Serum or Plasma [2345-7] 05/13/2025 12:37 PM 157 mg/dL N Blood chemistry[[id number]] Glucose [Mass/volume] in Serum or Plasma [2345-7] 05/13/2025 09:30 AM 280 mg/dL N Blood chemistry[[id number]] Glucose [Mass/volume] in Serum or Plasma [2345-7] 05/12/2025 04:08 PM 206 mg/dL N Blood chemistry[[id number]] Glucose [Mass/volume] in Serum or Plasma [2345-7] 05/12/2025 02:17 PM 151 mg/dL N Blood chemistry[[id number]] Glucose [Mass/volume] in Serum or Plasma [2345-7] 05/12/2025 12:43 PM 107 mg/dL N Blood chemistry[[id number]] Glucose [Mass/volume] in Serum or Plasma [2345-7] 05/12/2025 11:38 AM 107 mg/dL N Blood chemistry[[id number]] Glucose [Mass/volume] in Serum or Plasma [2345-7] 05/12/2025 08:50 AM 279 mg/dL N Blood chemistry[[id number]] Glucose [Mass/volume] in Serum or Plasma [2345-7] 05/11/2025 04:32 PM 202 mg/dL N Blood chemistry[[id number]] Glucose [Mass/volume] in Serum or Plasma [2345-7] 05/11/2025 12:54 PM 142 mg/dL N Blood chemistry[[id number]] Glucose [Mass/volume] in Serum or Plasma [2345-7] 05/11/2025 12:45 PM 165 mg/dL N Blood chemistry[[id number]] Glucose [Mass/volume] in Serum or Plasma [2345-7] 05/11/2025 09:14 AM 173 mg/dL N Blood chemistry[[id number]] Glucose [Mass/volume] in Serum or Plasma [2345-7] 05/10/2025 04:56 PM 227 mg/dL N Blood chemistry[[id number]] Glucose [Mass/volume] in Serum or Plasma [2345-7] 05/10/2025 12:39 PM 163 mg/dL N Blood chemistry[[id number]] Glucose [Mass/volume] in Serum or Plasma [2345-7] 05/10/2025 11:47 AM 165 mg/dL N Blood chemistry[[id number]] Glucose [Mass/volume] in Serum or Plasma [2345-7] 05/10/2025 10:00 AM 253 mg/dL N Blood chemistry[[id number]] Glucose [Mass/volume] in Serum or Plasma [2345-7] 05/09/2025 04:58 PM 209 mg/dL N Blood chemistry[[id number]] Glucose [Mass/volume] in Serum or Plasma [2345-7] 05/09/2025 04:56 PM 209 mg/dL N Blood chemistry[[id number]] Glucose [Mass/volume] in Serum or Plasma [2345-7] 05/09/2025 12:07 PM 183 mg/dL N Blood chemistry[[id number]] Glucose [Mass/volume] in Serum or Plasma [2345-7] 05/09/2025 11:28 AM 168 mg/dL N Blood chemistry[[id number]] Glucose [Mass/volume] in Serum or Plasma [2345-7] 05/09/2025 09:58 AM 178 mg/dL N Blood chemistry[[id number]] Glucose [Mass/volume] in Serum or Plasma [2345-7] 05/08/2025 03:53 PM 265 mg/dL N Blood chemistry[[id number]] Glucose [Mass/volume] in Serum or Plasma [2345-7] 05/08/2025 12:51 PM 281 mg/dL N Blood chemistry[[id number]] Glucose [Mass/volume] in Serum or Plasma [2345-7] 05/08/2025 11:52 AM 195 mg/dL N Blood chemistry[[id number]] Glucose [Mass/volume] in Serum or Plasma [2345-7] 05/08/2025 09:11 AM 378 mg/dL N Blood chemistry[[id number]] Glucose [Mass/volume] in Serum or Plasma [2345-7] 05/07/2025 05:18 PM 298 mg/dL N Blood chemistry[[id number]] Glucose [Mass/volume] in Serum or Plasma [2345-7] 05/07/2025 04:15 PM 282 mg/dL N Blood chemistry[[id number]] Glucose [Mass/volume] in Serum or Plasma [2345-7] 05/07/2025 12:54 PM 168 mg/dL N Blood chemistry[[id number]] Glucose [Mass/volume] in Serum or Plasma [2345-7] 05/07/2025 09:52 AM 157 mg/dL N Blood chemistry[[id number]] Glucose [Mass/volume] in Serum or Plasma [2345-7] 05/06/2025 05:40 PM 283 mg/dL N Blood chemistry[[id number]] Glucose [Mass/volume] in Serum or Plasma [2345-7] 05/06/2025 04:15 PM 208 mg/dL N Blood chemistry[[id number]] Glucose [Mass/volume] in Serum or Plasma [2345-7] 05/06/2025 04:00 PM 177 mg/dL N Blood chemistry[[id number]] Glucose [Mass/volume] in Serum or Plasma [2345-7] 05/06/2025 01:08 PM 142 mg/dL N Blood chemistry[[id number]] Glucose [Mass/volume] in Serum or Plasma [2345-7] 05/06/2025 09:31 AM 389 mg/dL N Blood chemistry[[id number]] Glucose [Mass/volume] in Serum or Plasma [2345-7] 05/05/2025 04:32 PM 212 mg/dL N Blood chemistry[[id number]] Glucose [Mass/volume] in Serum or Plasma [2345-7] 05/05/2025 03:32 PM 241 mg/dL N Blood chemistry[[id number]] Glucose [Mass/volume] in Serum or Plasma [2345-7] 05/05/2025 12:32 PM 142 mg/dL N Blood chemistry[[id number]] Glucose [Mass/volume] in Serum or Plasma [2345-7] 05/05/2025 08:34 AM 127 mg/dL N Blood chemistry[[id number]] Glucose [Mass/volume] in Serum or Plasma [2345-7] 05/04/2025 03:33 PM 328 mg/dL N Blood chemistry[[id number]] Glucose [Mass/volume] in Serum or Plasma [2345-7] 05/04/2025 02:18 PM 214 mg/dL N Blood chemistry[[id number]] Glucose [Mass/volume] in Serum or Plasma [2345-7] 05/04/2025 12:37 PM 247 mg/dL N Blood chemistry[[id number]] Glucose [Mass/volume] in Serum or Plasma [2345-7] 05/04/2025 08:54 AM 318 mg/dL N Blood chemistry[[id number]] Glucose [Mass/volume] in Serum or Plasma [2345-7] 05/03/2025 04:20 PM 213 mg/dL N Blood chemistry[[id number]] Glucose [Mass/volume] in Serum or Plasma [2345-7] 05/03/2025 12:59 PM 382 mg/dL N Blood chemistry[[id number]] Glucose [Mass/volume] in Serum or Plasma [2345-7] 05/03/2025 12:03 PM 104 mg/dL N Blood chemistry[[id number]] Glucose [Mass/volume] in Serum or Plasma [2345-7] 05/03/2025 11:38 AM 104 mg/dL N Blood chemistry[[id number]] Glucose [Mass/volume] in Serum or Plasma [2345-7] 05/03/2025 09:24 AM 363 mg/dL N Blood chemistry[[id number]] Glucose [Mass/volume] in Serum or Plasma [2345-7] 05/02/2025 04:11 PM 287 mg/dL N Blood chemistry[[id number]] Glucose [Mass/volume] in Serum or Plasma [2345-7] 05/02/2025 12:57 PM 182 mg/dL N Blood chemistry[[id number]] Glucose [Mass/volume] in Serum or Plasma [2345-7] 05/02/2025 11:50 AM 171 mg/dL N Blood chemistry[[id number]] Glucose [Mass/volume] in Serum or Plasma [2345-7] 05/02/2025 09:21 AM 280 mg/dL N Blood chemistry[[id number]] Glucose [Mass/volume] in Serum or Plasma [2345-7] 05/02/2025 09:20 AM 280 mg/dL N Blood chemistry[[id number]] Glucose [Mass/volume] in Serum or Plasma [2345-7] 05/01/2025 05:03 PM 337 mg/dL N Blood chemistry[[id number]] Glucose [Mass/volume] in Serum or Plasma [2345-7] 05/01/2025 04:04 PM 226 mg/dL N Blood chemistry[[id number]] Glucose [Mass/volume] in Serum or Plasma [2345-7] 05/01/2025 01:34 PM 226 mg/dL N Blood chemistry[[id number]] Glucose [Mass/volume] in Serum or Plasma [2345-7] 05/01/2025 12:03 PM 199 mg/dL N Blood chemistry[[id number]] Glucose [Mass/volume] in Serum or Plasma [2345-7] 05/01/2025 10:04 AM 246 mg/dL N Blood chemistry[[id number]] Glucose [Mass/volume] in Serum or Plasma [2345-7] 04/30/2025 04:42 PM 267 mg/dL N Blood chemistry[[id number]] Glucose [Mass/volume] in Serum or Plasma [2345-7] 04/30/2025 03:10 PM 207 mg/dL N Blood chemistry[[id number]] Glucose [Mass/volume] in Serum or Plasma [2345-7] 04/30/2025 01:22 PM 128 mg/dL N Blood chemistry[[id number]] Glucose [Mass/volume] in Serum or Plasma [2345-7] 04/30/2025 09:01 AM 330 mg/dL N Blood chemistry[[id number]] Glucose [Mass/volume] in Serum or Plasma [2345-7] 04/29/2025 12:59 PM 275 mg/dL N Blood chemistry[[id number]] Glucose [Mass/volume] in Serum or Plasma [2345-7] 04/27/2025 04:38 PM 103 mg/dL N Blood chemistry[[id number]] Glucose [Mass/volume] in Serum or Plasma [2345-7] 04/27/2025 01:31 PM 103 mg/dL N Blood chemistry[[id number]] Glucose [Mass/volume] in Serum or Plasma [2345-7] 04/27/2025 09:24 AM 271 mg/dL N Blood chemistry[[id number]] Glucose [Mass/volume] in Serum or Plasma [2345-7] 04/27/2025 06:22 AM 298 mg/dL N Blood chemistry[[id number]] Glucose [Mass/volume] in Serum or Plasma [2345-7] 04/26/2025 04:17 PM 308 mg/dL N Blood chemistry[[id number]] Glucose [Mass/volume] in Serum or Plasma [2345-7] 04/26/2025 03:10 PM 132 mg/dL N Blood chemistry[[id number]] Glucose [Mass/volume] in Serum or Plasma [2345-7] 04/26/2025 12:53 PM 133 mg/dL N Blood chemistry[[id number]] Glucose [Mass/volume] in Serum or Plasma [2345-7] 04/26/2025 09:43 AM 221 mg/dL N Blood chemistry[[id number]] Glucose [Mass/volume] in Serum or Plasma [2345-7] 04/25/2025 05:04 PM 330 mg/dL N Blood chemistry[[id number]] Glucose [Mass/volume] in Serum or Plasma [2345-7] 04/25/2025 02:05 PM 112 mg/dL N Blood chemistry[[id number]] Glucose [Mass/volume] in Serum or Plasma [2345-7] 04/25/2025 12:32 PM 130 mg/dL N Blood chemistry[[id number]] Glucose [Mass/volume] in Serum or Plasma [2345-7] 04/25/2025 09:20 AM 486 mg/dL N Blood chemistry[[id number]] Glucose [Mass/volume] in Serum or Plasma [2345-7] 04/24/2025 03:45 PM 238 mg/dL N Blood chemistry[[id number]] Glucose [Mass/volume] in Serum or Plasma [2345-7] 04/24/2025 12:12 PM 278 mg/dL N Blood chemistry[[id number]] Glucose [Mass/volume] in Serum or Plasma [2345-7] 04/24/2025 11:48 AM 97 mg/dL N Blood chemistry[[id number]] Glucose [Mass/volume] in Serum or Plasma [2345-7] 04/24/2025 11:47 AM 97 mg/dL N Blood chemistry[[id number]] Glucose [Mass/volume] in Serum or Plasma [2345-7] 04/24/2025 09:27 AM 305 mg/dL N Blood chemistry[[id number]] Glucose [Mass/volume] in Serum or Plasma [2345-7] 04/23/2025 04:29 PM 331 mg/dL N Glucose [Mass/volume] in Serum or Plasma [2345-7] 04/23/2025 04:29 PM 331 mg/dL N Blood chemistry[[id number]] Glucose [Mass/volume] in Serum or Plasma [2345-7] 04/23/2025 04:28 PM 331 mg/dL N Blood chemistry[[id number]] Glucose [Mass/volume] in Serum or Plasma [2345-7] 04/23/2025 01:50 PM 111 mg/dL N Blood chemistry[[id number]] Glucose [Mass/volume] in Serum or Plasma [2345-7] 04/23/2025 12:30 PM 222 mg/dL N Blood chemistry[[id number]] Glucose [Mass/volume] in Serum or Plasma [2345-7] 04/23/2025 12:29 PM 222 mg/dL N Blood chemistry[[id number]] Glucose [Mass/volume] in Serum or Plasma [2345-7] 04/23/2025 12:15 PM 222 mg/dL N Blood chemistry[[id number]] Glucose [Mass/volume] in Serum or Plasma [2345-7] 04/23/2025 09:56 AM 292 mg/dL N Glucose [Mass/volume] in Serum or Plasma [2345-7] 04/23/2025 09:56 AM 292 mg/dL N Blood chemistry[[id number]] Glucose [Mass/volume] in Serum or Plasma [2345-7] 04/23/2025 09:55 AM 292 mg/dL N Blood chemistry[[id number]] Glucose [Mass/volume] in Serum or Plasma [2345-7] 04/22/2025 05:28 PM 277 mg/dL N Blood chemistry[[id number]] Glucose [Mass/volume] in Serum or Plasma [2345-7] 04/22/2025 02:17 PM 252 mg/dL N Blood chemistry[[id number]] Glucose [Mass/volume] in Serum or Plasma [2345-7] 04/22/2025 12:59 PM 203 mg/dL N Blood chemistry[[id number]] Glucose [Mass/volume] in Serum or Plasma [2345-7] 04/22/2025 10:33 AM 356 mg/dL N Blood chemistry[[id number]] Glucose [Mass/volume] in Serum or Plasma [2345-7] 04/21/2025 02:22 PM 145 mg/dL N Blood chemistry[[id number]] Glucose [Mass/volume] in Serum or Plasma [2345-7] 04/21/2025 01:23 PM 219 mg/dL N Blood chemistry[[id number]] Glucose [Mass/volume] in Serum or Plasma [2345-7] 04/21/2025 09:42 AM 266 mg/dL N Blood chemistry[[id number]] Glucose [Mass/volume] in Serum or Plasma [2345-7] 04/21/2025 06:04 AM 325 mg/dL N Blood chemistry[[id number]] Glucose [Mass/volume] in Serum or Plasma [2345-7] 04/20/2025 03:11 PM 295 mg/dL N Blood chemistry[[id number]] Glucose [Mass/volume] in Serum or Plasma [2345-7] 04/20/2025 02:02 PM 289 mg/dL N Blood chemistry[[id number]] Glucose [Mass/volume] in Serum or Plasma [2345-7] 04/20/2025 12:35 PM 218 mg/dL N Blood chemistry[[id number]] Glucose [Mass/volume] in Serum or Plasma [2345-7] 04/20/2025 08:20 AM 239 mg/dL N Blood chemistry[[id number]] Glucose [Mass/volume] in Serum or Plasma [2345-7] 04/19/2025 03:55 PM 402 mg/dL N Blood chemistry[[id number]] Glucose [Mass/volume] in Serum or Plasma [2345-7] 04/19/2025 12:36 PM 474 mg/dL N Blood chemistry[[id number]] Glucose [Mass/volume] in Serum or Plasma [2345-7] 04/19/2025 11:40 AM 428 mg/dL N Blood chemistry[[id number]] Glucose [Mass/volume] in Serum or Plasma [2345-7] 04/19/2025 09:12 AM 488 mg/dL N Blood chemistry[[id number]] Glucose [Mass/volume] in Serum or Plasma [2345-7] 04/18/2025 03:13 PM 361 mg/dL N Blood chemistry[[id number]] Glucose [Mass/volume] in Serum or Plasma [2345-7] 04/18/2025 12:19 PM 199 mg/dL N Blood chemistry[[id number]] Glucose [Mass/volume] in Serum or Plasma [2345-7] 04/18/2025 12:04 PM 379 mg/dL N Blood chemistry[[id number]] Glucose [Mass/volume] in Serum or Plasma [2345-7] 04/18/2025 08:37 AM 437 mg/dL N Blood chemistry[[id number]] Glucose [Mass/volume] in Serum or Plasma [2345-7] 04/17/2025 05:21 PM 271 mg/dL N Blood chemistry[[id number]] Glucose [Mass/volume] in Serum or Plasma [2345-7] 04/17/2025 01:59 PM 307 mg/dL N Blood chemistry[[id number]] Glucose [Mass/volume] in Serum or Plasma [2345-7] 04/17/2025 12:11 PM 142 mg/dL N Blood chemistry[[id number]] Glucose [Mass/volume] in Serum or Plasma [2345-7] 04/17/2025 09:12 AM 234 mg/dL N Blood chemistry[[id number]] Glucose [Mass/volume] in Serum or Plasma [2345-7] 04/16/2025 04:26 PM 215 mg/dL N Blood chemistry[[id number]] Glucose [Mass/volume] in Serum or Plasma [2345-7] 04/16/2025 02:36 PM 155 mg/dL N Blood chemistry[[id number]] Glucose [Mass/volume] in Serum or Plasma [2345-7] 04/16/2025 01:43 PM 139 mg/dL N Blood chemistry[[id number]] Glucose [Mass/volume] in Serum or Plasma [5-7] 04/16/2025 08:52 AM 295 mg/dL N Blood chemistry[[id number]] Glucose [Mass/volume] in Serum or Plasma [5-7] 04/15/2025 04:27 PM 185 mg/dL N Blood chemistry[[id number]] Glucose [Mass/volume] in Serum or Plasma [5-7] 04/15/2025 09:11 AM 149 mg/dL N Glucose [Mass/volume] in Serum or Plasma [5-7] 04/15/2025 09:11 AM 149 mg/dL N Blood chemistry[[id number]] Glucose [Mass/volume] in Serum or Plasma [5-7] 03/13/2025 04:29 PM 155 mg/dL N Blood chemistry[[id number]] Glucose [Mass/volume] in Serum or Plasma [5-7] 03/13/2025 09:33 AM 155 mg/dL N Blood chemistry[[id number]] Glucose [Mass/volume] in Serum or Plasma [5-7] 03/13/2025 08:52 AM 261 mg/dL N Blood chemistry[[id number]] Glucose [Mass/volume] in Serum or Plasma [5-7] 03/13/2025 11:53 AM 122 mg/dL N Blood chemistry[[id number]] Glucose [Mass/volume] in Serum or Plasma [5-7] 03/12/2025 03:11 PM 243 mg/dL N Blood chemistry[[id number]] Glucose [Mass/volume] in Serum or Plasma [2345-7] 03/12/2025 04:39 PM 164 mg/dL N Blood chemistry[[id number]] Glucose [Mass/volume] in Serum or Plasma [5-7] 03/12/2025 09:29 AM 84 mg/dL N Blood chemistry[[id number]] Glucose [Mass/volume] in Serum or Plasma [5-7] 03/12/2025 12:37 PM 203 mg/dL N Blood chemistry[[id number]] Glucose [Mass/volume] in Serum or Plasma [2345-7] 03/11/2025 04:03 PM 225 mg/dL N Blood chemistry[] Glucose [Mass/volume] in Serum or Plasma [2345-7] 03/11/2025 04:45 PM 159 mg/dL N Blood chemistry[[id number]] Glucose [Mass/volume] in Serum or Plasma [2345-7] 03/11/2025 02:27 PM 98 mg/dL N Blood chemistry[[id number]] Glucose [Mass/volume] in Serum or Plasma [2345-7] 03/11/2025 10:02 AM 215 mg/dL N Blood chemistry[] Glucose [Mass/volume] in Serum or Plasma [2345-7] 03/10/2025 03:00 PM 212 mg/dL N Blood chemistry[[id number]] Glucose [Mass/volume] in Serum or Plasma [2345-7] 03/10/2025 04:15 PM 226 mg/dL N Blood chemistry[[id number]] Glucose [Mass/volume] in Serum or Plasma [2345-7] 03/10/2025 08:23 AM 277 mg/dL N Blood chemistry[[id number]] Glucose [Mass/volume] in Serum or Plasma [2345-7] 03/10/2025 01:46 PM 115 mg/dL N Glucose [Mass/volume] in Serum or Plasma [2345-7] 03/10/2025 01:46 PM 115 mg/dL N Blood chemistry[[id number]] Glucose [Mass/volume] in Serum or Plasma [2345-7] 03/09/2025 12:22 PM 224 mg/dL N Blood chemistry[[id number]] Glucose [Mass/volume] in Serum or Plasma [2345-7] 03/09/2025 03:29 PM 380 mg/dL N Blood chemistry[[id number]] Glucose [Mass/volume] in Serum or Plasma [2345-7] 03/09/2025 09:36 AM 229 mg/dL N Blood chemistry[[id number]] Glucose [Mass/volume] in Serum or Plasma [2345-7] 03/09/2025 12:53 PM 107 mg/dL N Blood chemistry[[id number]] Glucose [Mass/volume] in Serum or Plasma [2345-7] 03/08/2025 12:36 PM 205 mg/dL N Blood chemistry[[id number]] Glucose [Mass/volume] in Serum or Plasma [2345-7] 03/08/2025 04:11 PM 297 mg/dL N Blood chemistry[[id number]] Glucose [Mass/volume] in Serum or Plasma [2345-7] 03/08/2025 09:07 AM 282 mg/dL N Blood chemistry[[id number]] Glucose [Mass/volume] in Serum or Plasma [2345-7] 03/08/2025 11:25 AM 115 mg/dL N Blood chemistry[[id number]] Glucose [Mass/volume] in Serum or Plasma [2345-7] 03/08/2025 11:24 AM 115 mg/dL N Blood chemistry[[id number]] Glucose [Mass/volume] in Serum or Plasma [2345-7] 03/07/2025 12:37 PM 230 mg/dL N Blood chemistry[[id number]] Glucose [Mass/volume] in Serum or Plasma [2345-7] 03/07/2025 10:57 AM 262 mg/dL N Blood chemistry[[id number]] Glucose [Mass/volume] in Serum or Plasma [2345-7] 03/07/2025 04:16 PM 103 mg/dL N Blood chemistry[[id number]] Glucose [Mass/volume] in Serum or Plasma [2345-7] 03/07/2025 12:42 PM 79 mg/dL N Blood chemistry[[id number]] Glucose [Mass/volume] in Serum or Plasma [2345-7] 03/06/2025 12:22 PM 218 mg/dL N Blood chemistry[[id number]] Glucose [Mass/volume] in Serum or Plasma [2345-7] 03/06/2025 04:43 PM 235 mg/dL N Blood chemistry[[id number]] Glucose [Mass/volume] in Serum or Plasma [2345-7] 03/06/2025 10:13 AM 132 mg/dL N Blood chemistry[[id number]] Glucose [Mass/volume] in Serum or Plasma [2345-7] 03/06/2025 12:36 PM 137 mg/dL N Blood chemistry[[id number]] Glucose [Mass/volume] in Serum or Plasma [2345-7] 03/05/2025 01:53 PM 162 mg/dL N Blood chemistry[[id number]] Glucose [Mass/volume] in Serum or Plasma [2345-7] 03/05/2025 04:04 PM 215 mg/dL N Blood chemistry[[id number]] Glucose [Mass/volume] in Serum or Plasma [2345-7] 03/05/2025 09:04 AM 187 mg/dL N Blood chemistry[[id number]] Glucose [Mass/volume] in Serum or Plasma [2345-7] 03/05/2025 12:38 PM 99 mg/dL N Blood chemistry[[id number]] Glucose [Mass/volume] in Serum or Plasma [2345-7] 03/04/2025 12:48 PM 364 mg/dL N Blood chemistry[[id number]] Glucose [Mass/volume] in Serum or Plasma [2345-7] 03/04/2025 05:30 PM 183 mg/dL N Blood chemistry[[id number]] Glucose [Mass/volume] in Serum or Plasma [2345-7] 03/04/2025 09:08 AM 262 mg/dL N Blood chemistry[[id number]] Glucose [Mass/volume] in Serum or Plasma [2345-7] 03/04/2025 01:12 PM 105 mg/dL N Blood chemistry[[id number]] Glucose [Mass/volume] in Serum or Plasma [2345-7] 03/03/2025 03:35 PM 290 mg/dL N Blood chemistry[[id number]] Glucose [Mass/volume] in Serum or Plasma [2345-7] 03/03/2025 03:40 PM 232 mg/dL N Blood chemistry[[id number]] Glucose [Mass/volume] in Serum or Plasma [2345-7] 03/03/2025 09:18 AM 266 mg/dL N Blood chemistry[[id number]] Glucose [Mass/volume] in Serum or Plasma [2345-7] 03/03/2025 12:53 PM 151 mg/dL N Blood chemistry[[id number]] Glucose [Mass/volume] in Serum or Plasma [2345-7] 03/02/2025 01:12 PM 151 mg/dL N Blood chemistry[[id number]] Glucose [Mass/volume] in Serum or Plasma [2345-7] 03/02/2025 04:47 PM 244 mg/dL N Blood chemistry[[id number]] Glucose [Mass/volume] in Serum or Plasma [2345-7] 03/02/2025 09:46 AM 191 mg/dL N Blood chemistry[[id number]] Glucose [Mass/volume] in Serum or Plasma [2345-7] 03/02/2025 12:30 PM 170 mg/dL N Blood chemistry[[id number]] Glucose [Mass/volume] in Serum or Plasma [2345-7] 03/02/2025 11:20 AM 170 mg/dL N Blood chemistry[[id number]] Glucose [Mass/volume] in Serum or Plasma [2345-7] 03/01/2025 01:22 PM 221 mg/dL N Blood chemistry[[id number]] Glucose [Mass/volume] in Serum or Plasma [2345-7] 03/01/2025 04:27 PM 235 mg/dL N Blood chemistry[[id number]] Glucose [Mass/volume] in Serum or Plasma [2345-7] 03/01/2025 10:05 AM 78 mg/dL N Blood chemistry[[id number]] Glucose [Mass/volume] in Serum or Plasma [2345-7] 03/01/2025 12:57 PM 109 mg/dL N Blood chemistry[[id number]] Glucose [Mass/volume] in Serum or Plasma [2345-7] 03/01/2025 11:02 AM 109 mg/dL N Blood chemistry[[id number]] Glucose [Mass/volume] in Serum or Plasma [2345-7] 02/28/2025 04:56 PM 122 mg/dL N Blood chemistry[[id number]] Glucose [Mass/volume] in Serum or Plasma [2345-7] 02/28/2025 11:22 AM 308 mg/dL N Blood chemistry[[id number]] Glucose [Mass/volume] in Serum or Plasma [2345-7] 02/28/2025 04:27 PM 261 mg/dL N Blood chemistry[[id number]] Glucose [Mass/volume] in Serum or Plasma [2345-7] 02/28/2025 12:39 PM 101 mg/dL N Blood chemistry[[id number]] Glucose [Mass/volume] in Serum or Plasma [2345-7] 02/27/2025 12:12 PM 223 mg/dL N Blood chemistry[[id number]] Glucose [Mass/volume] in Serum or Plasma [2345-7] 02/27/2025 04:16 PM 254 mg/dL N Blood chemistry[[id number]] Glucose [Mass/volume] in Serum or Plasma [2345-7] 02/27/2025 09:15 AM 325 mg/dL N Blood chemistry[[id number]] Glucose [Mass/volume] in Serum or Plasma [2345-7] 02/27/2025 11:56 AM 189 mg/dL N Blood chemistry[[id number]] Glucose [Mass/volume] in Serum or Plasma [2345-7] 02/26/2025 04:22 PM 291 mg/dL N Blood chemistry[[id number]] Glucose [Mass/volume] in Serum or Plasma [2345-7] 02/26/2025 04:49 PM 165 mg/dL N Blood chemistry[[id number]] Glucose [Mass/volume] in Serum or Plasma [2345-7] 02/26/2025 09:12 AM 245 mg/dL N Blood chemistry[[id number]] Glucose [Mass/volume] in Serum or Plasma [2345-7] 02/26/2025 12:31 PM 126 mg/dL N Blood chemistry[[id number]] Glucose [Mass/volume] in Serum or Plasma [2345-7] 02/25/2025 04:26 PM 257 mg/dL N Blood chemistry[[id number]] Glucose [Mass/volume] in Serum or Plasma [2345-7] 02/25/2025 04:06 PM 263 mg/dL N Blood chemistry[[id number]] Glucose [Mass/volume] in Serum or Plasma [2345-7] 02/25/2025 09:59 AM 277 mg/dL N Blood chemistry[[id number]] Glucose [Mass/volume] in Serum or Plasma [2345-7] 02/25/2025 12:13 PM 176 mg/dL N Blood chemistry[[id number]] Glucose [Mass/volume] in Serum or Plasma [2345-7] 02/24/2025 01:07 PM 259 mg/dL N Blood chemistry[[id number]] Glucose [Mass/volume] in Serum or Plasma [2345-7] 02/24/2025 04:28 PM 218 mg/dL N Blood chemistry[[id number]] Glucose [Mass/volume] in Serum or Plasma [2345-7] 02/24/2025 08:37 AM 325 mg/dL N Blood chemistry[[id number]] Glucose [Mass/volume] in Serum or Plasma [2345-7] 02/24/2025 11:50 AM 130 mg/dL N Blood chemistry[[id number]] Glucose [Mass/volume] in Serum or Plasma [2345-7] 02/23/2025 03:21 PM 199 mg/dL N Blood chemistry[[id number]] Glucose [Mass/volume] in Serum or Plasma [2345-7] 02/23/2025 04:05 PM 276 mg/dL N Blood chemistry[[id number]] Glucose [Mass/volume] in Serum or Plasma [2345-7] 02/23/2025 09:41 AM 319 mg/dL N Blood chemistry[[id number]] Glucose [Mass/volume] in Serum or Plasma [2345-7] 02/23/2025 12:33 PM 126 mg/dL N Blood chemistry[[id number]] Glucose [Mass/volume] in Serum or Plasma [2345-7] 02/22/2025 03:18 PM 181 mg/dL N Blood chemistry[[id number]] Glucose [Mass/volume] in Serum or Plasma [2345-7] 02/22/2025 04:02 PM 346 mg/dL N Blood chemistry[[id number]] Glucose [Mass/volume] in Serum or Plasma [2345-7] 02/22/2025 09:38 AM 286 mg/dL N Blood chemistry[[id number]] Glucose [Mass/volume] in Serum or Plasma [2345-7] 02/22/2025 08:53 AM 286 mg/dL N Blood chemistry[[id number]] Glucose [Mass/volume] in Serum or Plasma [2345-7] 02/22/2025 12:00 PM 197 mg/dL N Blood chemistry[[id number]] Glucose [Mass/volume] in Serum or Plasma [2345-7] 02/21/2025 12:01 PM 277 mg/dL N Blood chemistry[[id number]] Glucose [Mass/volume] in Serum or Plasma [2345-7] 02/21/2025 05:06 PM 211 mg/dL N Blood chemistry[[id number]] Glucose [Mass/volume] in Serum or Plasma [2345-7] 02/21/2025 05:05 PM 211 mg/dL N Glucose [Mass/volume] in Serum or Plasma [2345-7] 02/21/2025 05:05 PM 211 mg/dL N Blood chemistry[[id number]] Glucose [Mass/volume] in Serum or Plasma [2345-7] 02/21/2025 02:47 PM 239 mg/dL N Blood chemistry[[id number]] Glucose [Mass/volume] in Serum or Plasma [2345-7] 02/21/2025 09:59 AM 250 mg/dL N Glucose [Mass/volume] in Serum or Plasma [2345-7] 02/21/2025 09:59 AM 250 mg/dL N Glucose [Mass/volume] in Serum or Plasma [2345-7] 02/21/2025 09:59 AM 250 mg/dL N Blood chemistry[[id number]] Glucose [Mass/volume] in Serum or Plasma [2345-7] 02/21/2025 01:09 PM 239 mg/dL N Blood chemistry[[id number]] Glucose [Mass/volume] in Serum or Plasma [2345-7] 02/20/2025 12:56 PM 159 mg/dL N Blood chemistry[[id number]] Glucose [Mass/volume] in Serum or Plasma [2345-7] 02/20/2025 05:14 PM 220 mg/dL N Blood chemistry[[id number]] Glucose [Mass/volume] in Serum or Plasma [2345-7] 02/20/2025 10:26 AM 184 mg/dL N Blood chemistry[[id number]] Glucose [Mass/volume] in Serum or Plasma [2345-7] 02/20/2025 12:41 PM 203 mg/dL N Blood chemistry[[id number]] Glucose [Mass/volume] in Serum or Plasma [2345-7] 02/19/2025 12:10 PM 220 mg/dL N Blood chemistry[[id number]] Glucose [Mass/volume] in Serum or Plasma [2345-7] 02/19/2025 03:28 PM 200 mg/dL N Blood chemistry[[id number]] Glucose [Mass/volume] in Serum or Plasma [2345-7] 02/19/2025 08:50 AM 237 mg/dL N Blood chemistry[[id number]] Glucose [Mass/volume] in Serum or Plasma [2345-7] 02/19/2025 12:08 PM 239 mg/dL N Blood chemistry[[id number]] Glucose [Mass/volume] in Serum or Plasma [2345-7] 02/18/2025 03:45 PM 209 mg/dL N Blood chemistry[[id number]] Glucose [Mass/volume] in Serum or Plasma [2345-7] 02/18/2025 03:31 PM 168 mg/dL N Blood chemistry[[id number]] Glucose [Mass/volume] in Serum or Plasma [2345-7] 02/18/2025 03:30 PM 168 mg/dL N Blood chemistry[[id number]] Glucose [Mass/volume] in Serum or Plasma [2345-7] 02/18/2025 08:55 AM 198 mg/dL N Blood chemistry[[id number]] Glucose [Mass/volume] in Serum or Plasma [2345-7] 02/18/2025 02:14 PM 104 mg/dL N Blood chemistry[[id number]] Glucose [Mass/volume] in Serum or Plasma [2345-7] 02/18/2025 11:43 AM 104 mg/dL N Blood chemistry[[id number]] Glucose [Mass/volume] in Serum or Plasma [2345-7] 02/17/2025 02:25 PM 137 mg/dL N Blood chemistry[[id number]] Glucose [Mass/volume] in Serum or Plasma [2345-7] 02/17/2025 04:11 PM 163 mg/dL N Blood chemistry[[id number]] Glucose [Mass/volume] in Serum or Plasma [2345-7] 02/17/2025 08:43 AM 179 mg/dL N Blood chemistry[[id number]] Glucose [Mass/volume] in Serum or Plasma [2345-7] 02/17/2025 02:14 PM 140 mg/dL N Blood chemistry[[id number]] Glucose [Mass/volume] in Serum or Plasma [2345-7] 02/17/2025 01:58 PM 140 mg/dL N Blood chemistry[[id number]] Glucose [Mass/volume] in Serum or Plasma [2345-7] 02/16/2025 01:10 PM 279 mg/dL N Blood chemistry[[id number]] Glucose [Mass/volume] in Serum or Plasma [2345-7] 02/16/2025 05:37 PM 268 mg/dL N Blood chemistry[[id number]] Glucose [Mass/volume] in Serum or Plasma [2345-7] 02/16/2025 10:06 AM 323 mg/dL N Blood chemistry[[id number]] Glucose [Mass/volume] in Serum or Plasma [2345-7] 02/16/2025 12:55 PM 123 mg/dL N Blood chemistry[[id number]] Glucose [Mass/volume] in Serum or Plasma [2345-7] 02/15/2025 12:25 PM 121 mg/dL N Blood chemistry[[id number]] Glucose [Mass/volume] in Serum or Plasma [2345-7] 02/15/2025 05:25 PM 276 mg/dL N Blood chemistry[[id number]] Glucose [Mass/volume] in Serum or Plasma [2345-7] 02/15/2025 10:08 AM 154 mg/dL N Blood chemistry[[id number]] Glucose [Mass/volume] in Serum or Plasma [2345-7] 02/15/2025 12:49 PM 315 mg/dL N Blood chemistry[[id number]] Glucose [Mass/volume] in Serum or Plasma [2345-7] 02/14/2025 12:47 PM 241 mg/dL N Blood chemistry[[id number]] Glucose [Mass/volume] in Serum or Plasma [2345-7] 02/14/2025 04:12 PM 285 mg/dL N Blood chemistry[[id number]] Glucose [Mass/volume] in Serum or Plasma [2345-7] 02/14/2025 09:22 AM 307 mg/dL N Blood chemistry[[id number]] Glucose [Mass/volume] in Serum or Plasma [2345-7] 02/14/2025 01:49 PM 180 mg/dL N Blood chemistry[[id number]] Glucose [Mass/volume] in Serum or Plasma [2345-7] 02/13/2025 12:27 PM 212 mg/dL N Blood chemistry[[id number]] Glucose [Mass/volume] in Serum or Plasma [2345-7] 02/13/2025 04:27 PM 232 mg/dL N Blood chemistry[[id number]] Glucose [Mass/volume] in Serum or Plasma [2345-7] 02/13/2025 10:23 AM 276 mg/dL N Blood chemistry[[id number]] Glucose [Mass/volume] in Serum or Plasma [2345-7] 02/13/2025 12:45 PM 122 mg/dL N Blood chemistry[[id number]] Glucose [Mass/volume] in Serum or Plasma [2345-7] 02/12/2025 02:44 PM 294 mg/dL N Blood chemistry[[id number]] Glucose [Mass/volume] in Serum or Plasma [2345-7] 02/12/2025 05:58 PM 242 mg/dL N Blood chemistry[[id number]] Glucose [Mass/volume] in Serum or Plasma [2345-7] 02/12/2025 10:13 AM 303 mg/dL N Blood chemistry[[id number]] Glucose [Mass/volume] in Serum or Plasma [2345-7] 02/12/2025 01:35 PM 113 mg/dL N Blood chemistry[[id number]] Glucose [Mass/volume] in Serum or Plasma [2345-7] 02/11/2025 03:23 PM 184 mg/dL N Blood chemistry[[id number]] Glucose [Mass/volume] in Serum or Plasma [2345-7] 02/11/2025 09:16 AM 298 mg/dL N Blood chemistry[[id number]] Glucose [Mass/volume] in Serum or Plasma [2345-7] 02/11/2025 06:18 AM 280 mg/dL N Blood chemistry[[id number]] Glucose [Mass/volume] in Serum or Plasma [2345-7] 02/11/2025 12:11 PM 119 mg/dL N Blood chemistry[[id number]] Glucose [Mass/volume] in Serum or Plasma [2345-7] 02/10/2025 11:44 AM 232 mg/dL N Blood chemistry[[id number]] Glucose [Mass/volume] in Serum or Plasma [2345-7] 02/10/2025 04:18 PM 264 mg/dL N Blood chemistry[[id number]] Glucose [Mass/volume] in Serum or Plasma [2345-7] 02/10/2025 09:33 AM 237 mg/dL N Blood chemistry[[id number]] Glucose [Mass/volume] in Serum or Plasma [2345-7] 02/10/2025 12:19 PM 203 mg/dL N Blood chemistry[[id number]] Glucose [Mass/volume] in Serum or Plasma [2345-7] 02/09/2025 04:21 PM 268 mg/dL N Blood chemistry[[id number]] Glucose [Mass/volume] in Serum or Plasma [2345-7] 02/09/2025 03:51 PM 308 mg/dL N Blood chemistry[[id number]] Glucose [Mass/volume] in Serum or Plasma [2345-7] 02/09/2025 08:46 AM 287 mg/dL N Blood chemistry[[id number]] Glucose [Mass/volume] in Serum or Plasma [2345-7] 02/09/2025 12:33 PM 147 mg/dL N Blood chemistry[[id number]] Glucose [Mass/volume] in Serum or Plasma [2345-7] 02/08/2025 02:34 PM 285 mg/dL N Blood chemistry[[id number]] Glucose [Mass/volume] in Serum or Plasma [2345-7] 02/08/2025 04:25 PM 371 mg/dL N Blood chemistry[[id number]] Glucose [Mass/volume] in Serum or Plasma [2345-7] 02/08/2025 08:38 AM 402 mg/dL N Blood chemistry[[id number]] Glucose [Mass/volume] in Serum or Plasma [2345-7] 02/08/2025 11:50 AM 188 mg/dL N Blood chemistry[[id number]] Glucose [Mass/volume] in Serum or Plasma [2345-7] 02/07/2025 12:36 PM 287 mg/dL N Blood chemistry[[id number]] Glucose [Mass/volume] in Serum or Plasma [2345-7] 02/07/2025 04:24 PM 273 mg/dL N Blood chemistry[[id number]] Glucose [Mass/volume] in Serum or Plasma [2345-7] 02/07/2025 09:08 AM 311 mg/dL N Blood chemistry[[id number]] Glucose [Mass/volume] in Serum or Plasma [2345-7] 02/07/2025 12:37 PM 137 mg/dL N Blood chemistry[[id number]] Glucose [Mass/volume] in Serum or Plasma [2345-7] 02/06/2025 11:59 AM 185 mg/dL N Blood chemistry[[id number]] Glucose [Mass/volume] in Serum or Plasma [2345-7] 02/06/2025 05:19 PM 218 mg/dL N Blood chemistry[[id number]] Glucose [Mass/volume] in Serum or Plasma [2345-7] 02/06/2025 09:34 AM 197 mg/dL N Blood chemistry[[id number]] Glucose [Mass/volume] in Serum or Plasma [2345-7] 02/06/2025 12:13 PM 116 mg/dL N Blood chemistry[[id number]] Glucose [Mass/volume] in Serum or Plasma [2345-7] 02/05/2025 02:00 PM 239 mg/dL N Blood chemistry[[id number]] Glucose [Mass/volume] in Serum or Plasma [2345-7] 02/05/2025 04:07 PM 232 mg/dL N Blood chemistry[[id number]] Glucose [Mass/volume] in Serum or Plasma [2345-7] 02/05/2025 09:12 AM 237 mg/dL N Blood chemistry[[id number]] Glucose [Mass/volume] in Serum or Plasma [2345-7] 02/05/2025 01:00 PM 181 mg/dL N Blood chemistry[[id number]] Glucose [Mass/volume] in Serum or Plasma [2345-7] 02/04/2025 02:28 PM 199 mg/dL N Blood chemistry[[id number]] Glucose [Mass/volume] in Serum or Plasma [2345-7] 02/04/2025 05:12 PM 224 mg/dL N Blood chemistry[[id number]] Glucose [Mass/volume] in Serum or Plasma [2345-7] 02/04/2025 09:40 AM 209 mg/dL N Blood chemistry[[id number]] Glucose [Mass/volume] in Serum or Plasma [2345-7] 02/04/2025 12:30 PM 152 mg/dL N Blood chemistry[[id number]] Glucose [Mass/volume] in Serum or Plasma [2345-7] 02/03/2025 02:10 PM 208 mg/dL N Blood chemistry[[id number]] Glucose [Mass/volume] in Serum or Plasma [2345-7] 02/03/2025 03:13 PM 249 mg/dL N Blood chemistry[[id number]] Glucose [Mass/volume] in Serum or Plasma [2345-7] 02/03/2025 08:24 AM 255 mg/dL N Blood chemistry[[id number]] Glucose [Mass/volume] in Serum or Plasma [2345-7] 02/03/2025 12:21 PM 124 mg/dL N Blood chemistry[[id number]] Glucose [Mass/volume] in Serum or Plasma [2345-7] 02/02/2025 12:29 PM 289 mg/dL N Blood chemistry[[id number]] Glucose [Mass/volume] in Serum or Plasma [2345-7] 02/02/2025 11:05 AM 284 mg/dL N Blood chemistry[[id number]] Glucose [Mass/volume] in Serum or Plasma [2345-7] 02/02/2025 04:26 PM 208 mg/dL N Blood chemistry[[id number]] Glucose [Mass/volume] in Serum or Plasma [2345-7] 02/02/2025 02:37 PM 133 mg/dL N Blood chemistry[[id number]] Glucose [Mass/volume] in Serum or Plasma [2345-7] 02/01/2025 02:03 PM 294 mg/dL N Blood chemistry[[id number]] Glucose [Mass/volume] in Serum or Plasma [2345-7] 02/01/2025 05:32 PM 297 mg/dL N Blood chemistry[[id number]] Glucose [Mass/volume] in Serum or Plasma [2345-7] 02/01/2025 09:46 AM 497 mg/dL N Blood chemistry[[id number]] Glucose [Mass/volume] in Serum or Plasma [2345-7] 02/01/2025 08:51 AM 497 mg/dL N Blood chemistry[[id number]] Glucose [Mass/volume] in Serum or Plasma [2345-7] 02/01/2025 01:58 PM 134 mg/dL N Blood chemistry[[id number]] Glucose [Mass/volume] in Serum or Plasma [2345-7] 02/01/2025 01:03 PM 134 mg/dL N Blood chemistry[[id number]] Glucose [Mass/volume] in Serum or Plasma [2345-7] 01/31/2025 12:25 PM 273 mg/dL N Blood chemistry[[id number]] Glucose [Mass/volume] in Serum or Plasma [2345-7] 01/31/2025 04:34 PM 277 mg/dL N Blood chemistry[[id number]] Glucose [Mass/volume] in Serum or Plasma [2345-7] 01/31/2025 09:19 AM 317 mg/dL N Blood chemistry[[id number]] Glucose [Mass/volume] in Serum or Plasma [2345-7] 01/31/2025 01:12 PM 145 mg/dL N Blood chemistry[[id number]] Glucose [Mass/volume] in Serum or Plasma [2345-7] 01/30/2025 12:56 PM 235 mg/dL N Blood chemistry[[id number]] Glucose [Mass/volume] in Serum or Plasma [2345-7] 01/30/2025 03:42 PM 233 mg/dL N Blood chemistry[[id number]] Glucose [Mass/volume] in Serum or Plasma [2345-7] 01/30/2025 09:00 AM 281 mg/dL N Blood chemistry[[id number]] Glucose [Mass/volume] in Serum or Plasma [2345-7] 01/30/2025 12:27 PM 143 mg/dL N Blood chemistry[[id number]] Glucose [Mass/volume] in Serum or Plasma [2345-7] 01/29/2025 02:02 PM 222 mg/dL N Blood chemistry[[id number]] Glucose [Mass/volume] in Serum or Plasma [2345-7] 01/29/2025 10:43 AM 270 mg/dL N Blood chemistry[[id number]] Glucose [Mass/volume] in Serum or Plasma [2345-7] 01/29/2025 04:30 PM 352 mg/dL N Blood chemistry[[id number]] Glucose [Mass/volume] in Serum or Plasma [2345-7] 01/29/2025 12:15 PM 120 mg/dL N Blood chemistry[[id number]] Glucose [Mass/volume] in Serum or Plasma [2345-7] 01/28/2025 02:55 PM 211 mg/dL N Blood chemistry[[id number]] Glucose [Mass/volume] in Serum or Plasma [2345-7] 01/28/2025 04:03 PM 285 mg/dL N Blood chemistry[[id number]] Glucose [Mass/volume] in Serum or Plasma [2345-7] 01/28/2025 09:38 AM 362 mg/dL N Blood chemistry[[id number]] Glucose [Mass/volume] in Serum or Plasma [2345-7] 01/28/2025 12:33 PM 124 mg/dL N Blood chemistry[[id number]] Glucose [Mass/volume] in Serum or Plasma [2345-7] 01/27/2025 03:16 PM 201 mg/dL N Blood chemistry[[id number]] Glucose [Mass/volume] in Serum or Plasma [2345-7] 01/27/2025 04:09 PM 390 mg/dL N Blood chemistry[[id number]] Glucose [Mass/volume] in Serum or Plasma [2345-7] 01/27/2025 08:56 AM 266 mg/dL N Blood chemistry[[id number]] Glucose [Mass/volume] in Serum or Plasma [2345-7] 01/27/2025 01:08 PM 88 mg/dL N Blood chemistry[[id number]] Glucose [Mass/volume] in Serum or Plasma [2345-7] 01/26/2025 12:42 PM 349 mg/dL N Blood chemistry[[id number]] Glucose [Mass/volume] in Serum or Plasma [2345-7] 01/26/2025 03:23 PM 206 mg/dL N Blood chemistry[[id number]] Glucose [Mass/volume] in Serum or Plasma [2345-7] 01/26/2025 09:35 AM 355 mg/dL N Blood chemistry[[id number]] Glucose [Mass/volume] in Serum or Plasma [2345-7] 01/26/2025 11:52 AM 136 mg/dL N Blood chemistry[[id number]] Glucose [Mass/volume] in Serum or Plasma [2345-7] 01/25/2025 11:56 AM 282 mg/dL N Blood chemistry[[id number]] Glucose [Mass/volume] in Serum or Plasma [2345-7] 01/25/2025 04:02 PM 198 mg/dL N Blood chemistry[[id number]] Glucose [Mass/volume] in Serum or Plasma [2345-7] 01/25/2025 09:00 AM 220 mg/dL N Blood chemistry[[id number]] Glucose [Mass/volume] in Serum or Plasma [2345-7] 01/25/2025 11:43 AM 146 mg/dL N Blood chemistry[[id number]] Glucose [Mass/volume] in Serum or Plasma [2345-7] 01/24/2025 12:27 PM 444 mg/dL N Blood chemistry[[id number]] Glucose [Mass/volume] in Serum or Plasma [2345-7] 01/24/2025 08:29 AM 353 mg/dL N Blood chemistry[[id number]] Glucose [Mass/volume] in Serum or Plasma [2345-7] 01/24/2025 03:10 PM 282 mg/dL N Blood chemistry[[id number]] Glucose [Mass/volume] in Serum or Plasma [2345-7] 01/24/2025 12:00 PM 124 mg/dL N Blood chemistry[[id number]] Glucose [Mass/volume] in Serum or Plasma [2345-7] 01/23/2025 11:49 AM 227 mg/dL N Blood chemistry[[id number]] Glucose [Mass/volume] in Serum or Plasma [2345-7] 01/23/2025 05:30 PM 269 mg/dL N Blood chemistry[[id number]] Glucose [Mass/volume] in Serum or Plasma [2345-7] 01/23/2025 09:09 AM 267 mg/dL N Blood chemistry[[id number]] Glucose [Mass/volume] in Serum or Plasma [2345-7] 01/23/2025 12:32 PM 94 mg/dL N Blood chemistry[[id number]] Glucose [Mass/volume] in Serum or Plasma [2345-7] 01/22/2025 12:35 PM 221 mg/dL N Blood chemistry[[id number]] Glucose [Mass/volume] in Serum or Plasma [2345-7] 01/22/2025 04:32 PM 264 mg/dL N Blood chemistry[[id number]] Glucose [Mass/volume] in Serum or Plasma [2345-7] 01/22/2025 09:30 AM 232 mg/dL N Blood chemistry[[id number]] Glucose [Mass/volume] in Serum or Plasma [2345-7] 01/22/2025 12:53 PM 121 mg/dL N Blood chemistry[[id number]] Glucose [Mass/volume] in Serum or Plasma [2345-7] 01/22/2025 12:52 PM 121 mg/dL N Blood chemistry[[id number]] Glucose [Mass/volume] in Serum or Plasma [2345-7] 01/21/2025 12:35 PM 321 mg/dL N Blood chemistry[[id number]] Glucose [Mass/volume] in Serum or Plasma [2345-7] 01/21/2025 04:30 PM 243 mg/dL N Blood chemistry[[id number]] Glucose [Mass/volume] in Serum or Plasma [2345-7] 01/21/2025 09:35 AM 200 mg/dL N Blood chemistry[[id number]] Glucose [Mass/volume] in Serum or Plasma [2345-7] 01/21/2025 12:21 PM 142 mg/dL N Blood chemistry[[id number]] Glucose [Mass/volume] in Serum or Plasma [2345-7] 01/21/2025 05:54 PM 226 mg/dL N Blood chemistry[[id number]] Glucose [Mass/volume] in Serum or Plasma [2345-7] 01/20/2025 09:41 AM 133 mg/dL N Blood chemistry[[id number]] Glucose [Mass/volume] in Serum or Plasma [2345-7] 01/20/2025 06:15 AM 217 mg/dL N Blood chemistry[[id number]] Glucose [Mass/volume] in Serum or Plasma [2345-7] 01/20/2025 12:40 PM 144 mg/dL N Blood chemistry[[id number]] Glucose [Mass/volume] in Serum or Plasma [2345-7] 01/19/2025 01:05 PM 158 mg/dL N Blood chemistry[[id number]] Glucose [Mass/volume] in Serum or Plasma [2345-7] 01/19/2025 04:00 PM 290 mg/dL N Blood chemistry[[id number]] Glucose [Mass/volume] in Serum or Plasma [2345-7] 01/19/2025 09:45 AM 199 mg/dL N Glucose [Mass/volume] in Serum or Plasma [2345-7] 01/19/2025 09:45 AM 199 mg/dL N Blood chemistry[[id number]] Glucose [Mass/volume] in Serum or Plasma [2345-7] 01/19/2025 02:47 PM 231 mg/dL N Blood chemistry[[id number]] Glucose [Mass/volume] in Serum or Plasma [2345-7] 01/18/2025 12:52 PM 223 mg/dL N Blood chemistry[[id number]] Glucose [Mass/volume] in Serum or Plasma [2345-7] 01/18/2025 05:05 PM 245 mg/dL N Blood chemistry[[id number]] Glucose [Mass/volume] in Serum or Plasma [2345-7] 01/18/2025 12:36 PM 106 mg/dL N Blood chemistry[[id number]] Glucose [Mass/volume] in Serum or Plasma [2345-7] 01/18/2025 09:43 AM 296 mg/dL N Blood chemistry[[id number]] Glucose [Mass/volume] in Serum or Plasma [2345-7] 01/17/2025 12:16 PM 184 mg/dL N Blood chemistry[[id number]] Glucose [Mass/volume] in Serum or Plasma [2345-7] 01/17/2025 08:21 AM 350 mg/dL N Blood chemistry[[id number]] Glucose [Mass/volume] in Serum or Plasma [2345-7] 01/17/2025 04:36 PM 153 mg/dL N Blood chemistry[[id number]] Glucose [Mass/volume] in Serum or Plasma [2345-7] 01/17/2025 01:10 PM 186 mg/dL N Blood chemistry[[id number]] Glucose [Mass/volume] in Serum or Plasma [2345-7] 01/16/2025 04:36 PM 161 mg/dL N Blood chemistry[[id number]] Glucose [Mass/volume] in Serum or Plasma [2345-7] 01/16/2025 12:36 PM 351 mg/dL N Blood chemistry[[id number]] Glucose [Mass/volume] in Serum or Plasma [2345-7] 01/16/2025 12:11 PM 195 mg/dL N Blood chemistry[[id number]] Glucose [Mass/volume] in Serum or Plasma [2345-7] 01/16/2025 08:29 AM 236 mg/dL N Glucose [Mass/volume] in Serum or Plasma [2345-7] 01/16/2025 08:29 AM 236 mg/dL N Blood chemistry[[id number]] Glucose [Mass/volume] in Serum or Plasma [2345-7] 01/15/2025 03:27 PM 235 mg/dL N Blood chemistry[[id number]] Glucose [Mass/volume] in Serum or Plasma [2345-7] 01/15/2025 10:16 AM 196 mg/dL N Blood chemistry[[id number]] Glucose [Mass/volume] in Serum or Plasma [2345-7] 01/15/2025 03:20 PM 321 mg/dL N Blood chemistry[[id number]] Glucose [Mass/volume] in Serum or Plasma [2345-7] 01/15/2025 01:34 PM 173 mg/dL N Blood chemistry[[id number]] Glucose [Mass/volume] in Serum or Plasma [2345-7] 01/14/2025 05:24 PM 280 mg/dL N Blood chemistry[[id number]] Glucose [Mass/volume] in Serum or Plasma [2345-7] 01/14/2025 03:28 PM 158 mg/dL N Blood chemistry[[id number]] Glucose [Mass/volume] in Serum or Plasma [2345-7] 01/14/2025 02:15 PM 107 mg/dL N Blood chemistry[[id number]] Glucose [Mass/volume] in Serum or Plasma [2345-7] 01/14/2025 10:07 AM 306 mg/dL N Blood chemistry[[id number]] Glucose [Mass/volume] in Serum or Plasma [2345-7] 01/13/2025 01:49 PM 175 mg/dL N Blood chemistry[[id number]] Glucose [Mass/volume] in Serum or Plasma [2345-7] 01/13/2025 09:42 AM 188 mg/dL N Blood chemistry[[id number]] Glucose [Mass/volume] in Serum or Plasma [2345-7] 01/13/2025 05:03 PM 290 mg/dL N Blood chemistry[[id number]] Glucose [Mass/volume] in Serum or Plasma [2345-7] 01/13/2025 02:51 PM 253 mg/dL N Blood chemistry[[id number]] Glucose [Mass/volume] in Serum or Plasma [2345-7] 01/12/2025 01:56 PM 241 mg/dL N Blood chemistry[[id number]] Glucose [Mass/volume] in Serum or Plasma [2345-7] 01/12/2025 11:41 AM 198 mg/dL N Blood chemistry[[id number]] Glucose [Mass/volume] in Serum or Plasma [2345-7] 01/12/2025 04:35 PM 264 mg/dL N Blood chemistry[[id number]] Glucose [Mass/volume] in Serum or Plasma [2345-7] 01/12/2025 01:36 PM 147 mg/dL N Blood chemistry[[id number]] Glucose [Mass/volume] in Serum or Plasma [2345-7] 01/11/2025 12:51 PM 296 mg/dL N Blood chemistry[[id number]] Glucose [Mass/volume] in Serum or Plasma [2345-7] 01/11/2025 05:07 PM 322 mg/dL N Blood chemistry[[id number]] Glucose [Mass/volume] in Serum or Plasma [2345-7] 01/11/2025 01:25 PM 112 mg/dL N Blood chemistry[[id number]] Glucose [Mass/volume] in Serum or Plasma [2345-7] 01/11/2025 09:45 AM 390 mg/dL N Blood chemistry[[id number]] Glucose [Mass/volume] in Serum or Plasma [2345-7] 01/10/2025 01:19 PM 257 mg/dL N Blood chemistry[[id number]] Glucose [Mass/volume] in Serum or Plasma [2345-7] 01/10/2025 11:49 AM 304 mg/dL N Blood chemistry[[id number]] Glucose [Mass/volume] in Serum or Plasma [2345-7] 01/10/2025 05:31 PM 396 mg/dL N Blood chemistry[[id number]] Glucose [Mass/volume] in Serum or Plasma [2345-7] 01/10/2025 03:20 PM 221 mg/dL N Blood chemistry[[id number]] Glucose [Mass/volume] in Serum or Plasma [2345-7] 01/09/2025 05:17 PM 403 mg/dL N Blood chemistry[[id number]] Glucose [Mass/volume] in Serum or Plasma [2345-7] 01/09/2025 01:06 PM 184 mg/dL N Blood chemistry[[id number]] Glucose [Mass/volume] in Serum or Plasma [2345-7] 01/09/2025 12:58 PM 447 mg/dL N Blood chemistry[[id number]] Glucose [Mass/volume] in Serum or Plasma [2345-7] 01/09/2025 10:20 AM 410 mg/dL N Blood chemistry[[id number]] Glucose [Mass/volume] in Serum or Plasma [2345-7] 01/08/2025 04:34 PM 240 mg/dL N Blood chemistry[[id number]] Glucose [Mass/volume] in Serum or Plasma [2345-7] 01/08/2025 10:56 AM 448 mg/dL N Blood chemistry[[id number]] Glucose [Mass/volume] in Serum or Plasma [2345-7] 01/08/2025 05:25 PM 224 mg/dL N Blood chemistry[[id number]] Glucose [Mass/volume] in Serum or Plasma [2345-7] 01/08/2025 02:11 PM 138 mg/dL N Blood chemistry[[id number]] Glucose [Mass/volume] in Serum or Plasma [2345-7] 01/07/2025 03:47 PM 138 mg/dL N Blood chemistry[[id number]] Glucose [Mass/volume] in Serum or Plasma [2345-7] 01/07/2025 10:24 AM 138 mg/dL N Blood chemistry[[id number]] Glucose [Mass/volume] in Serum or Plasma [2345-7] 01/07/2025 05:04 PM 299 mg/dL N Blood chemistry[[id number]] Glucose [Mass/volume] in Serum or Plasma [2345-7] 01/07/2025 02:15 PM 150 mg/dL N Blood chemistry[[id number]] Glucose [Mass/volume] in Serum or Plasma [2345-7] 01/07/2025 01:34 PM 150 mg/dL N Blood chemistry[[id number]] Glucose [Mass/volume] in Serum or Plasma [2345-7] 01/06/2025 02:45 PM 251 mg/dL N Blood chemistry[[id number]] Glucose [Mass/volume] in Serum or Plasma [2345-7] 01/06/2025 02:35 PM 194 mg/dL N Blood chemistry[[id number]] Glucose [Mass/volume] in Serum or Plasma [2345-7] 01/06/2025 09:14 AM 347 mg/dL N Blood chemistry[[id number]] Glucose [Mass/volume] in Serum or Plasma [2345-7] 01/05/2025 01:50 PM 218 mg/dL N Blood chemistry[[id number]] Glucose [Mass/volume] in Serum or Plasma [2345-7] 01/05/2025 02:58 PM 126 mg/dL N Blood chemistry[[id number]] Glucose [Mass/volume] in Serum or Plasma [2345-7] 01/04/2025 05:04 PM 268 mg/dL N Blood chemistry[[id number]] Glucose [Mass/volume] in Serum or Plasma [2345-7] 01/04/2025 01:52 PM 156 mg/dL N Blood chemistry[[id number]] Glucose [Mass/volume] in Serum or Plasma [2345-7] 01/04/2025 01:32 PM 175 mg/dL N Blood chemistry[[id number]] Glucose [Mass/volume] in Serum or Plasma [2345-7] 01/04/2025 10:52 AM 139 mg/dL N Blood chemistry[[id number]] Glucose [Mass/volume] in Serum or Plasma [2345-7] 01/03/2025 01:36 PM 236 mg/dL N Blood chemistry[[id number]] Glucose [Mass/volume] in Serum or Plasma [2345-7] 01/03/2025 09:57 AM 334 mg/dL N Blood chemistry[[id number]] Glucose [Mass/volume] in Serum or Plasma [2345-7] 01/03/2025 05:04 PM 139 mg/dL N Blood chemistry[[id number]] Glucose [Mass/volume] in Serum or Plasma [2345-7] 01/03/2025 03:45 PM 234 mg/dL N Blood chemistry[[id number]] Glucose [Mass/volume] in Serum or Plasma [2345-7] 01/03/2025 01:27 PM 234 mg/dL N Blood chemistry[[id number]] Glucose [Mass/volume] in Serum or Plasma [2345-7] 01/02/2025 05:40 PM 276 mg/dL N Blood chemistry[[id number]] Glucose [Mass/volume] in Serum or Plasma [2345-7] 01/02/2025 01:09 PM 134 mg/dL N Blood chemistry[[id number]] Glucose [Mass/volume] in Serum or Plasma [2345-7] 01/02/2025 01:02 PM 183 mg/dL N Blood chemistry[[id number]] Glucose [Mass/volume] in Serum or Plasma [2345-7] 01/02/2025 09:53 AM 157 mg/dL N Blood chemistry[[id number]] Glucose [Mass/volume] in Serum or Plasma [2345-7] 01/01/2025 05:21 PM 163 mg/dL N Blood chemistry[[id number]] Glucose [Mass/volume] in Serum or Plasma [2345-7] 01/01/2025 05:20 PM 316 mg/dL N Blood chemistry[[id number]] Glucose [Mass/volume] in Serum or Plasma [2345-7] 01/01/2025 12:20 PM 265 mg/dL N Blood chemistry[[id number]] Glucose [Mass/volume] in Serum or Plasma [2345-7] 01/01/2025 06:33 PM 240 mg/dL N Blood chemistry[[id number]] Glucose [Mass/volume] in Serum or Plasma [2345-7] 01/01/2025 02:00 PM 143 mg/dL N Blood chemistry[[id number]] Glucose [Mass/volume] in Serum or Plasma [2345-7] 12/31/2024 05:53 PM 233 mg/dL N Blood chemistry[[id number]] Glucose [Mass/volume] in Serum or Plasma [2345-7] 12/31/2024 02:57 PM 165 mg/dL N Blood chemistry[[id number]] Glucose [Mass/volume] in Serum or Plasma [2345-7] 12/31/2024 10:18 AM 212 mg/dL N Blood chemistry[[id number]] Glucose [Mass/volume] in Serum or Plasma [2345-7] 12/30/2024 04:02 PM 243 mg/dL N Blood chemistry[[id number]] Glucose [Mass/volume] in Serum or Plasma [2345-7] 12/30/2024 10:07 AM 290 mg/dL N Blood chemistry[[id number]] Glucose [Mass/volume] in Serum or Plasma [2345-7] 12/30/2024 06:32 PM 448 mg/dL N Blood chemistry[[id number]] Glucose [Mass/volume] in Serum or Plasma [2345-7] 12/30/2024 04:35 PM 286 mg/dL N Blood chemistry[[id number]] Glucose [Mass/volume] in Serum or Plasma [2345-7] 12/30/2024 02:00 PM 116 mg/dL N Blood chemistry[[id number]] Glucose [Mass/volume] in Serum or Plasma [2345-7] 12/29/2024 11:11 AM 302 mg/dL N Blood chemistry[[id number]] Glucose [Mass/volume] in Serum or Plasma [2345-7] 12/29/2024 06:57 PM 218 mg/dL N Blood chemistry[[id number]] Glucose [Mass/volume] in Serum or Plasma [2345-7] 12/29/2024 01:56 PM 123 mg/dL N Blood chemistry[[id number]] Glucose [Mass/volume] in Serum or Plasma [2345-7] 12/28/2024 01:47 PM 330 mg/dL N Blood chemistry[[id number]] Glucose [Mass/volume] in Serum or Plasma [2345-7] 12/28/2024 11:04 AM 321 mg/dL N Blood chemistry[[id number]] Glucose [Mass/volume] in Serum or Plasma [2345-7] 12/28/2024 09:50 AM 321 mg/dL N Blood chemistry[[id number]] Glucose [Mass/volume] in Serum or Plasma [2345-7] 12/28/2024 05:25 PM 317 mg/dL N Blood chemistry[[id number]] Glucose [Mass/volume] in Serum or Plasma [2345-7] 12/28/2024 01:31 PM 171 mg/dL N Blood chemistry[[id number]] Glucose [Mass/volume] in Serum or Plasma [2345-7] 12/27/2024 01:37 PM 295 mg/dL N Blood chemistry[[id number]] Glucose [Mass/volume] in Serum or Plasma [2345-7] 12/27/2024 10:54 AM 368 mg/dL N Blood chemistry[[id number]] Glucose [Mass/volume] in Serum or Plasma [2345-7] 12/27/2024 01:52 PM 82 mg/dL N Blood chemistry[[id number]] Glucose [Mass/volume] in Serum or Plasma [2345-7] 12/27/2024 07:00 AM 218 mg/dL N Blood chemistry[[id number]] Glucose [Mass/volume] in Serum or Plasma [2345-7] 12/26/2024 05:03 PM 322 mg/dL N Blood chemistry[[id number]] Glucose [Mass/volume] in Serum or Plasma [2345-7] 12/26/2024 02:04 PM 176 mg/dL N Blood chemistry[[id number]] Glucose [Mass/volume] in Serum or Plasma [2345-7] 12/26/2024 01:49 PM 194 mg/dL N Blood chemistry[[id number]] Glucose [Mass/volume] in Serum or Plasma [2345-7] 12/26/2024 10:56 AM 135 mg/dL N Blood chemistry[[id number]] Glucose [Mass/volume] in Serum or Plasma [2345-7] 12/25/2024 01:35 PM 184 mg/dL N Blood chemistry[[id number]] Glucose [Mass/volume] in Serum or Plasma [2345-7] 12/25/2024 10:10 AM 214 mg/dL N Blood chemistry[[id number]] Glucose [Mass/volume] in Serum or Plasma [2345-7] 12/25/2024 06:48 PM 339 mg/dL N Glucose [Mass/volume] in Serum or Plasma [2345-7] 12/25/2024 06:48 PM 339 mg/dL N Blood chemistry[[id number]] Glucose [Mass/volume] in Serum or Plasma [2345-7] 12/25/2024 03:08 PM 163 mg/dL N Blood chemistry[[id number]] Glucose [Mass/volume] in Serum or Plasma [2345-7] 12/25/2024 07:13 AM 339 mg/dL N Blood chemistry[[id number]] Glucose [Mass/volume] in Serum or Plasma [2345-7] 12/24/2024 06:29 PM 212 mg/dL N Blood chemistry[[id number]] Glucose [Mass/volume] in Serum or Plasma [2345-7] 12/24/2024 03:01 PM 136 mg/dL N Blood chemistry[[id number]] Glucose [Mass/volume] in Serum or Plasma [2345-7] 12/24/2024 01:07 PM 202 mg/dL N Blood chemistry[[id number]] Glucose [Mass/volume] in Serum or Plasma [2345-7] 12/24/2024 12:05 PM 212 mg/dL N Blood chemistry[[id number]] Glucose [Mass/volume] in Serum or Plasma [2345-7] 12/23/2024 01:51 PM 300 mg/dL N Blood chemistry[[id number]] Glucose [Mass/volume] in Serum or Plasma [2345-7] 12/23/2024 11:05 AM 278 mg/dL N Blood chemistry[[id number]] Glucose [Mass/volume] in Serum or Plasma [2345-7] 12/23/2024 02:02 PM 113 mg/dL N Blood chemistry[[id number]] Glucose [Mass/volume] in Serum or Plasma [2345-7] 12/23/2024 07:36 AM 337 mg/dL N Blood chemistry[[id number]] Glucose [Mass/volume] in Serum or Plasma [2345-7] 12/22/2024 06:01 PM 194 mg/dL N Blood chemistry[[id number]] Glucose [Mass/volume] in Serum or Plasma [2345-7] 12/22/2024 04:18 PM 179 mg/dL N Blood chemistry[[id number]] Glucose [Mass/volume] in Serum or Plasma [2345-7] 12/22/2024 01:21 PM 179 mg/dL N Blood chemistry[[id number]] Glucose [Mass/volume] in Serum or Plasma [2345-7] 12/22/2024 01:20 PM 239 mg/dL N Blood chemistry[[id number]] Glucose [Mass/volume] in Serum or Plasma [2345-7] 12/22/2024 11:36 AM 295 mg/dL N Blood chemistry[[id number]] Glucose [Mass/volume] in Serum or Plasma [2345-7] 12/21/2024 06:06 PM 217 mg/dL N Blood chemistry[[id number]] Glucose [Mass/volume] in Serum or Plasma [2345-7] 12/21/2024 03:27 PM 112 mg/dL N Blood chemistry[[id number]] Glucose [Mass/volume] in Serum or Plasma [2345-7] 12/21/2024 01:17 PM 288 mg/dL N Blood chemistry[[id number]] Glucose [Mass/volume] in Serum or Plasma [2345-7] 12/21/2024 10:38 AM 314 mg/dL N Blood chemistry[[id number]] Glucose [Mass/volume] in Serum or Plasma [2345-7] 12/21/2024 10:37 AM 217 mg/dL N Blood chemistry[[id number]] Glucose [Mass/volume] in Serum or Plasma [2345-7] 12/20/2024 05:06 PM 319 mg/dL N Blood chemistry[[id number]] Glucose [Mass/volume] in Serum or Plasma [2345-7] 12/20/2024 03:24 PM 152 mg/dL N Blood chemistry[[id number]] Glucose [Mass/volume] in Serum or Plasma [2345-7] 12/20/2024 01:18 PM 157 mg/dL N Blood chemistry[[id number]] Glucose [Mass/volume] in Serum or Plasma [2345-7] 12/20/2024 10:22 AM 323 mg/dL N Blood chemistry[[id number]] Glucose [Mass/volume] in Serum or Plasma [2345-7] 12/20/2024 10:16 AM 323 mg/dL N Blood chemistry[[id number]] Glucose [Mass/volume] in Serum or Plasma [2345-7] 12/19/2024 12:43 PM 264 mg/dL N Blood chemistry[[id number]] Glucose [Mass/volume] in Serum or Plasma [2345-7] 12/19/2024 05:03 PM 363 mg/dL N Blood chemistry[[id number]] Glucose [Mass/volume] in Serum or Plasma [2345-7] 12/19/2024 04:18 PM 363 mg/dL N Blood chemistry[[id number]] Glucose [Mass/volume] in Serum or Plasma [2345-7] 12/19/2024 12:39 PM 201 mg/dL N Blood chemistry[[id number]] Glucose [Mass/volume] in Serum or Plasma [2345-7] 12/19/2024 09:54 AM 227 mg/dL N Blood chemistry[[id number]] Glucose [Mass/volume] in Serum or Plasma [2345-7] 12/18/2024 02:50 PM 326 mg/dL N Blood chemistry[[id number]] Glucose [Mass/volume] in Serum or Plasma [2345-7] 12/18/2024 01:34 PM 180 mg/dL N Blood chemistry[[id number]] Glucose [Mass/volume] in Serum or Plasma [2345-7] 12/18/2024 10:10 AM 209 mg/dL N Blood chemistry[[id number]] Glucose [Mass/volume] in Serum or Plasma [2345-7] 12/18/2024 07:00 AM 314 mg/dL N Blood chemistry[[id number]] Glucose [Mass/volume] in Serum or Plasma [2345-7] 12/17/2024 01:49 PM 170 mg/dL N Blood chemistry[[id number]] Glucose [Mass/volume] in Serum or Plasma [2345-7] 12/17/2024 09:57 AM 288 mg/dL N Blood chemistry[[id number]] Glucose [Mass/volume] in Serum or Plasma [2345-7] 12/17/2024 05:14 PM 319 mg/dL N Blood chemistry[[id number]] Glucose [Mass/volume] in Serum or Plasma [2345-7] 12/17/2024 01:23 PM 310 mg/dL N Blood chemistry[[id number]] Glucose [Mass/volume] in Serum or Plasma [2345-7] 12/16/2024 02:17 PM 278 mg/dL N Blood chemistry[[id number]] Glucose [Mass/volume] in Serum or Plasma [2345-7] 12/16/2024 04:47 PM 298 mg/dL N Blood chemistry[[id number]] Glucose [Mass/volume] in Serum or Plasma [2345-7] 12/16/2024 01:01 PM 173 mg/dL N Blood chemistry[[id number]] Glucose [Mass/volume] in Serum or Plasma [2345-7] 12/16/2024 09:37 AM 223 mg/dL N Blood chemistry[[id number]] Glucose [Mass/volume] in Serum or Plasma [2345-7] 12/15/2024 02:57 PM 119 mg/dL N Blood chemistry[[id number]] Glucose [Mass/volume] in Serum or Plasma [2345-7] 12/15/2024 05:26 PM 268 mg/dL N Blood chemistry[[id number]] Glucose [Mass/volume] in Serum or Plasma [2345-7] 12/15/2024 01:15 PM 200 mg/dL N Blood chemistry[[id number]] Glucose [Mass/volume] in Serum or Plasma [2345-7] 12/15/2024 10:15 AM 257 mg/dL N Blood chemistry[[id number]] Glucose [Mass/volume] in Serum or Plasma [2345-7] 12/14/2024 12:50 PM 251 mg/dL N Blood chemistry[[id number]] Glucose [Mass/volume] in Serum or Plasma [2345-7] 12/14/2024 04:53 PM 237 mg/dL N Blood chemistry[[id number]] Glucose [Mass/volume] in Serum or Plasma [2345-7] 12/14/2024 01:50 PM 221 mg/dL N Blood chemistry[[id number]] Glucose [Mass/volume] in Serum or Plasma [2345-7] 12/14/2024 09:14 AM 308 mg/dL N Blood chemistry[[id number]] Glucose [Mass/volume] in Serum or Plasma [2345-7] 12/13/2024 01:22 PM 268 mg/dL N Blood chemistry[[id number]] Glucose [Mass/volume] in Serum or Plasma [2345-7] 12/13/2024 06:06 PM 306 mg/dL N Blood chemistry[[id number]] Glucose [Mass/volume] in Serum or Plasma [2345-7] 12/13/2024 02:04 PM 127 mg/dL N Blood chemistry[[id number]] Glucose [Mass/volume] in Serum or Plasma [2345-7] 12/12/2024 04:32 PM 248 mg/dL N Blood chemistry[[id number]] Glucose [Mass/volume] in Serum or Plasma [2345-7] 12/12/2024 02:02 PM 230 mg/dL N Blood chemistry[[id number]] Glucose [Mass/volume] in Serum or Plasma [2345-7] 12/12/2024 01:06 PM 188 mg/dL N Blood chemistry[[id number]] Glucose [Mass/volume] in Serum or Plasma [2345-7] 12/12/2024 09:29 AM 530 mg/dL N Blood chemistry[[id number]] Glucose [Mass/volume] in Serum or Plasma [2345-7] 12/11/2024 02:06 PM 310 mg/dL N Blood chemistry[[id number]] Glucose [Mass/volume] in Serum or Plasma [2345-7] 12/11/2024 10:06 AM 171 mg/dL N Blood chemistry[[id number]] Glucose [Mass/volume] in Serum or Plasma [2345-7] 12/11/2024 06:24 PM 277 mg/dL N Blood chemistry[[id number]] Glucose [Mass/volume] in Serum or Plasma [2345-7] 12/11/2024 04:44 PM 151 mg/dL N Blood chemistry[[id number]] Glucose [Mass/volume] in Serum or Plasma [2345-7] 12/10/2024 01:36 PM 252 mg/dL N Blood chemistry[[id number]] Glucose [Mass/volume] in Serum or Plasma [2345-7] 12/10/2024 10:10 AM 290 mg/dL N Blood chemistry[[id number]] Glucose [Mass/volume] in Serum or Plasma [2345-7] 12/10/2024 05:05 PM 197 mg/dL N Blood chemistry[[id number]] Glucose [Mass/volume] in Serum or Plasma [2345-7] 12/10/2024 01:23 PM 112 mg/dL N Blood chemistry[[id number]] Glucose [Mass/volume] in Serum or Plasma [2345-7] 12/09/2024 02:10 PM 237 mg/dL N Blood chemistry[[id number]] Glucose [Mass/volume] in Serum or Plasma [2345-7] 12/09/2024 01:02 PM 137 mg/dL N Blood chemistry[[id number]] Glucose [Mass/volume] in Serum or Plasma [2345-7] 12/09/2024 11:44 AM 179 mg/dL N Blood chemistry[[id number]] Glucose [Mass/volume] in Serum or Plasma [2345-7] 12/09/2024 10:17 AM 179 mg/dL N Blood chemistry[[id number]] Glucose [Mass/volume] in Serum or Plasma [2345-7] 12/09/2024 07:24 AM 234 mg/dL N Blood chemistry[[id number]] Glucose [Mass/volume] in Serum or Plasma [2345-7] 12/08/2024 12:44 PM 179 mg/dL N Blood chemistry[[id number]] Glucose [Mass/volume] in Serum or Plasma [2345-7] 12/08/2024 06:15 PM 283 mg/dL N Blood chemistry[[id number]] Glucose [Mass/volume] in Serum or Plasma [2345-7] 12/08/2024 05:57 PM 283 mg/dL N Glucose [Mass/volume] in Serum or Plasma [2345-7] 12/08/2024 05:57 PM 168 mg/dL N Blood chemistry[[id number]] Glucose [Mass/volume] in Serum or Plasma [2345-7] 12/08/2024 01:33 PM 168 mg/dL N Blood chemistry[[id number]] Glucose [Mass/volume] in Serum or Plasma [2345-7] 12/08/2024 11:00 AM 250 mg/dL N Blood chemistry[[id number]] Glucose [Mass/volume] in Serum or Plasma [2345-7] 12/07/2024 01:08 PM 171 mg/dL N Blood chemistry[[id number]] Glucose [Mass/volume] in Serum or Plasma [2345-7] 12/07/2024 11:47 AM 257 mg/dL N Blood chemistry[[id number]] Glucose [Mass/volume] in Serum or Plasma [2345-7] 12/07/2024 06:00 PM 300 mg/dL N Blood chemistry[[id number]] Glucose [Mass/volume] in Serum or Plasma [2345-7] 12/07/2024 04:17 PM 173 mg/dL N Blood chemistry[[id number]] Glucose [Mass/volume] in Serum or Plasma [2345-7] 12/06/2024 02:53 PM 120 mg/dL N Blood chemistry[[id number]] Glucose [Mass/volume] in Serum or Plasma [2345-7] 12/06/2024 01:42 PM 254 mg/dL N Blood chemistry[[id number]] Glucose [Mass/volume] in Serum or Plasma [2345-7] 12/06/2024 11:26 AM 145 mg/dL N Blood chemistry[[id number]] Glucose [Mass/volume] in Serum or Plasma [2345-7] 12/06/2024 07:03 AM 270 mg/dL N Blood chemistry[[id number]] Glucose [Mass/volume] in Serum or Plasma [2345-7] 12/05/2024 01:35 PM 196 mg/dL N Blood chemistry[[id number]] Glucose [Mass/volume] in Serum or Plasma [2345-7] 12/05/2024 06:06 PM 324 mg/dL N Blood chemistry[[id number]] Glucose [Mass/volume] in Serum or Plasma [2345-7] 12/05/2024 01:24 PM 183 mg/dL N Blood chemistry[[id number]] Glucose [Mass/volume] in Serum or Plasma [2345-7] 12/05/2024 11:37 AM 188 mg/dL N Blood chemistry[[id number]] Glucose [Mass/volume] in Serum or Plasma [2345-7] 12/04/2024 06:00 PM 272 mg/dL N Blood chemistry[[id number]] Glucose [Mass/volume] in Serum or Plasma [2345-7] 12/04/2024 03:01 PM 164 mg/dL N Blood chemistry[[id number]] Glucose [Mass/volume] in Serum or Plasma [2345-7] 12/04/2024 01:45 PM 123 mg/dL N Blood chemistry[[id number]] Glucose [Mass/volume] in Serum or Plasma [2345-7] 12/04/2024 10:14 AM 215 mg/dL N Blood chemistry[[id number]] Glucose [Mass/volume] in Serum or Plasma [2345-7] 12/04/2024 06:39 PM 66 mg/dL N Blood chemistry[[id number]] Glucose [Mass/volume] in Serum or Plasma [2345-7] 12/03/2024 09:59 AM 260 mg/dL N Glucose [Mass/volume] in Serum or Plasma [2345-7] 12/03/2024 09:59 AM 260 mg/dL N Blood chemistry[[id number]] Glucose [Mass/volume] in Serum or Plasma [2345-7] 12/03/2024 05:41 PM 233 mg/dL N Blood chemistry[[id number]] Glucose [Mass/volume] in Serum or Plasma [2345-7] 12/03/2024 03:03 PM 155 mg/dL N Blood chemistry[[id number]] Glucose [Mass/volume] in Serum or Plasma [2345-7] 12/02/2024 02:40 PM 236 mg/dL N Blood chemistry[[id number]] Glucose [Mass/volume] in Serum or Plasma [2345-7] 12/02/2024 05:24 PM 180 mg/dL N Blood chemistry[[id number]] Glucose [Mass/volume] in Serum or Plasma [2345-7] 12/02/2024 12:32 PM 126 mg/dL N Blood chemistry[[id number]] Glucose [Mass/volume] in Serum or Plasma [2345-7] 12/02/2024 10:31 AM 130 mg/dL N Blood chemistry[[id number]] Glucose [Mass/volume] in Serum or Plasma [2345-7] 12/01/2024 03:45 PM 159 mg/dL N Blood chemistry[[id number]] Glucose [Mass/volume] in Serum or Plasma [2345-7] 12/01/2024 05:33 PM 218 mg/dL N Blood chemistry[[id number]] Glucose [Mass/volume] in Serum or Plasma [2345-7] 12/01/2024 02:34 PM 124 mg/dL N Blood chemistry[[id number]] Glucose [Mass/volume] in Serum or Plasma [2345-7] 12/01/2024 10:12 AM 264 mg/dL N Blood chemistry[[id number]] Glucose [Mass/volume] in Serum or Plasma [2345-7] 11/30/2024 01:12 PM 226 mg/dL N Blood chemistry[[id number]] Glucose [Mass/volume] in Serum or Plasma [2345-7] 11/30/2024 05:14 PM 299 mg/dL N Blood chemistry[[id number]] Glucose [Mass/volume] in Serum or Plasma [2345-7] 11/30/2024 12:20 PM 144 mg/dL N Blood chemistry[[id number]] Glucose [Mass/volume] in Serum or Plasma [2345-7] 11/30/2024 10:25 AM 338 mg/dL N Blood chemistry[[id number]] Glucose [Mass/volume] in Serum or Plasma [2345-7] 11/29/2024 02:43 PM 157 mg/dL N Blood chemistry[[id number]] Glucose [Mass/volume] in Serum or Plasma [2345-7] 11/29/2024 06:32 PM 326 mg/dL N Blood chemistry[[id number]] Glucose [Mass/volume] in Serum or Plasma [2345-7] 11/29/2024 01:23 PM 141 mg/dL N Blood chemistry[[id number]] Glucose [Mass/volume] in Serum or Plasma [2345-7] 11/29/2024 09:33 AM 192 mg/dL N Blood chemistry[[id number]] Glucose [Mass/volume] in Serum or Plasma [2345-7] 11/28/2024 05:57 PM 207 mg/dL N Blood chemistry[[id number]] Glucose [Mass/volume] in Serum or Plasma [2345-7] 11/28/2024 03:20 PM 128 mg/dL N Blood chemistry[[id number]] Glucose [Mass/volume] in Serum or Plasma [2345-7] 11/28/2024 01:15 PM 237 mg/dL N Blood chemistry[[id number]] Glucose [Mass/volume] in Serum or Plasma [2345-7] 11/28/2024 10:49 AM 154 mg/dL N Blood chemistry[[id number]] Glucose [Mass/volume] in Serum or Plasma [2345-7] 11/27/2024 01:52 PM 226 mg/dL N Blood chemistry[[id number]] Glucose [Mass/volume] in Serum or Plasma [2345-7] 11/27/2024 10:58 AM 199 mg/dL N Blood chemistry[[id number]] Glucose [Mass/volume] in Serum or Plasma [2345-7] 11/27/2024 06:05 PM 296 mg/dL N Blood chemistry[[id number]] Glucose [Mass/volume] in Serum or Plasma [2345-7] 11/27/2024 01:07 PM 142 mg/dL N Blood chemistry[[id number]] Glucose [Mass/volume] in Serum or Plasma [2345-7] 11/26/2024 05:51 PM 276 mg/dL N Blood chemistry[[id number]] Glucose [Mass/volume] in Serum or Plasma [2345-7] 11/26/2024 03:22 PM 175 mg/dL N Blood chemistry[[id number]] Glucose [Mass/volume] in Serum or Plasma [2345-7] 11/26/2024 01:25 PM 360 mg/dL N Blood chemistry[[id number]] Glucose [Mass/volume] in Serum or Plasma [2345-7] 11/26/2024 12:30 PM 175 mg/dL N Blood chemistry[[id number]] Glucose [Mass/volume] in Serum or Plasma [2345-7] 11/26/2024 10:30 AM 360 mg/dL N Blood chemistry[[id number]] Glucose [Mass/volume] in Serum or Plasma [2345-7] 11/25/2024 04:55 PM 284 mg/dL N Blood chemistry[[id number]] Glucose [Mass/volume] in Serum or Plasma [2345-7] 11/25/2024 02:06 PM 289 mg/dL N Blood chemistry[[id number]] Glucose [Mass/volume] in Serum or Plasma [2345-7] 11/25/2024 12:36 PM 102 mg/dL N Blood chemistry[[id number]] Glucose [Mass/volume] in Serum or Plasma [2345-7] 11/25/2024 10:00 AM 178 mg/dL N Blood chemistry[[id number]] Glucose [Mass/volume] in Serum or Plasma [2345-7] 11/24/2024 01:11 PM 272 mg/dL N Blood chemistry[[id number]] Glucose [Mass/volume] in Serum or Plasma [2345-7] 11/24/2024 06:11 PM 194 mg/dL N Blood chemistry[[id number]] Glucose [Mass/volume] in Serum or Plasma [2345-7] 11/24/2024 03:25 PM 112 mg/dL N Glucose [Mass/volume] in Serum or Plasma [2345-7] 11/24/2024 03:25 PM 112 mg/dL N Blood chemistry[[id number]] Glucose [Mass/volume] in Serum or Plasma [2345-7] 11/24/2024 10:30 AM 221 mg/dL N Glucose [Mass/volume] in Serum or Plasma [2345-7] 11/24/2024 10:30 AM 221 mg/dL N Blood chemistry[[id number]] Glucose [Mass/volume] in Serum or Plasma [2345-7] 11/23/2024 01:44 PM 134 mg/dL N Blood chemistry[[id number]] Glucose [Mass/volume] in Serum or Plasma [2345-7] 11/23/2024 04:56 PM 301 mg/dL N Blood chemistry[[id number]] Glucose [Mass/volume] in Serum or Plasma [2345-7] 11/23/2024 01:33 PM 197 mg/dL N Blood chemistry[[id number]] Glucose [Mass/volume] in Serum or Plasma [2345-7] 11/23/2024 11:11 AM 165 mg/dL N Blood chemistry[[id number]] Glucose [Mass/volume] in Serum or Plasma [2345-7] 11/22/2024 01:41 PM 242 mg/dL N Blood chemistry[[id number]] Glucose [Mass/volume] in Serum or Plasma [2345-7] 11/22/2024 04:57 PM 299 mg/dL N Blood chemistry[[id number]] Glucose [Mass/volume] in Serum or Plasma [2345-7] 11/22/2024 01:08 PM 192 mg/dL N Blood chemistry[[id number]] Glucose [Mass/volume] in Serum or Plasma [2345-7] 11/22/2024 09:47 AM 212 mg/dL N Blood chemistry[[id number]] Glucose [Mass/volume] in Serum or Plasma [2345-7] 11/21/2024 12:50 PM 217 mg/dL N Blood chemistry[[id number]] Glucose [Mass/volume] in Serum or Plasma [2345-7] 11/21/2024 04:15 PM 272 mg/dL N Blood chemistry[[id number]] Glucose [Mass/volume] in Serum or Plasma [2345-7] 11/21/2024 04:00 PM 272 mg/dL N Blood chemistry[[id number]] Glucose [Mass/volume] in Serum or Plasma [2345-7] 11/21/2024 12:43 PM 190 mg/dL N Blood chemistry[[id number]] Glucose [Mass/volume] in Serum or Plasma [2345-7] 11/21/2024 09:43 AM 212 mg/dL N Blood chemistry[[id number]] Glucose [Mass/volume] in Serum or Plasma [2345-7] 11/20/2024 05:43 PM 279 mg/dL N Blood chemistry[[id number]] Glucose [Mass/volume] in Serum or Plasma [2345-7] 11/20/2024 04:08 PM 241 mg/dL N Blood chemistry[[id number]] Glucose [Mass/volume] in Serum or Plasma [2345-7] 11/20/2024 01:37 PM 151 mg/dL N Blood chemistry[[id number]] Glucose [Mass/volume] in Serum or Plasma [2345-7] 11/20/2024 10:16 AM 149 mg/dL N Blood chemistry[[id number]] Glucose [Mass/volume] in Serum or Plasma [2345-7] 11/19/2024 04:42 PM 234 mg/dL N Blood chemistry[[id number]] Glucose [Mass/volume] in Serum or Plasma [2345-7] 11/19/2024 12:32 PM 247 mg/dL N Blood chemistry[[id number]] Glucose [Mass/volume] in Serum or Plasma [2345-7] 11/19/2024 05:24 PM 275 mg/dL N Blood chemistry[[id number]] Glucose [Mass/volume] in Serum or Plasma [2345-7] 11/19/2024 02:37 PM 148 mg/dL N Blood chemistry[[id number]] Glucose [Mass/volume] in Serum or Plasma [2345-7] 11/18/2024 03:55 PM 127 mg/dL N Blood chemistry[[id number]] Glucose [Mass/volume] in Serum or Plasma [2345-7] 11/18/2024 05:35 PM 246 mg/dL N Blood chemistry[[id number]] Glucose [Mass/volume] in Serum or Plasma [2345-7] 11/18/2024 01:43 PM 167 mg/dL N Blood chemistry[[id number]] Glucose [Mass/volume] in Serum or Plasma [2345-7] 11/18/2024 10:09 AM 197 mg/dL N Blood chemistry[[id number]] Glucose [Mass/volume] in Serum or Plasma [2345-7] 11/17/2024 01:58 PM 255 mg/dL N Blood chemistry[[id number]] Glucose [Mass/volume] in Serum or Plasma [2345-7] 11/17/2024 05:52 PM 297 mg/dL N Blood chemistry[[id number]] Glucose [Mass/volume] in Serum or Plasma [2345-7] 11/17/2024 01:02 PM 96 mg/dL N Blood chemistry[[id number]] Glucose [Mass/volume] in Serum or Plasma [2345-7] 11/17/2024 12:27 PM 187 mg/dL N Blood chemistry[[id number]] Glucose [Mass/volume] in Serum or Plasma [2345-7] 11/16/2024 01:36 PM 209 mg/dL N Blood chemistry[[id number]] Glucose [Mass/volume] in Serum or Plasma [2345-7] 11/16/2024 05:15 PM 311 mg/dL N Blood chemistry[[id number]] Glucose [Mass/volume] in Serum or Plasma [2345-7] 11/16/2024 12:16 PM 187 mg/dL N Blood chemistry[[id number]] Glucose [Mass/volume] in Serum or Plasma [2345-7] 11/16/2024 10:11 AM 223 mg/dL N Blood chemistry[[id number]] Glucose [Mass/volume] in Serum or Plasma [2345-7] 11/15/2024 05:26 PM 266 mg/dL N Blood chemistry[[id number]] Glucose [Mass/volume] in Serum or Plasma [2345-7] 11/15/2024 01:30 PM 207 mg/dL N Blood chemistry[[id number]] Glucose [Mass/volume] in Serum or Plasma [2345-7] 11/15/2024 01:11 PM 256 mg/dL N Blood chemistry[[id number]] Glucose [Mass/volume] in Serum or Plasma [2345-7] 11/15/2024 09:22 AM 222 mg/dL N Blood chemistry[[id number]] Glucose [Mass/volume] in Serum or Plasma [2345-7] 11/14/2024 12:31 PM 105 mg/dL N Blood chemistry[[id number]] Glucose [Mass/volume] in Serum or Plasma [2345-7] 11/14/2024 06:27 PM 274 mg/dL N Blood chemistry[[id number]] Glucose [Mass/volume] in Serum or Plasma [2345-7] 11/14/2024 02:04 PM 184 mg/dL N Blood chemistry[[id number]] Glucose [Mass/volume] in Serum or Plasma [2345-7] 11/14/2024 10:33 AM 162 mg/dL N Blood chemistry[[id number]] Glucose [Mass/volume] in Serum or Plasma [2345-7] 11/13/2024 04:36 PM 231 mg/dL N Blood chemistry[[id number]] Glucose [Mass/volume] in Serum or Plasma [2345-7] 11/13/2024 04:01 PM 184 mg/dL N Blood chemistry[[id number]] Glucose [Mass/volume] in Serum or Plasma [2345-7] 11/13/2024 01:38 PM 141 mg/dL N Blood chemistry[[id number]] Glucose [Mass/volume] in Serum or Plasma [2345-7] 11/13/2024 12:51 PM 147 mg/dL N Blood chemistry[[id number]] Glucose [Mass/volume] in Serum or Plasma [2345-7] 11/13/2024 10:15 AM 213 mg/dL N Blood chemistry[[id number]] Glucose [Mass/volume] in Serum or Plasma [2345-7] 11/12/2024 03:24 PM 93 mg/dL N Blood chemistry[[id number]] Glucose [Mass/volume] in Serum or Plasma [2345-7] 11/12/2024 12:18 PM 172 mg/dL N Blood chemistry[[id number]] Glucose [Mass/volume] in Serum or Plasma [2345-7] 11/12/2024 05:35 PM 188 mg/dL N Blood chemistry[[id number]] Glucose [Mass/volume] in Serum or Plasma [2345-7] 11/12/2024 02:41 PM 134 mg/dL N Blood chemistry[[id number]] Glucose [Mass/volume] in Serum or Plasma [2345-7] 11/11/2024 02:59 PM 172 mg/dL N Blood chemistry[[id number]] Glucose [Mass/volume] in Serum or Plasma [2345-7] 11/11/2024 04:21 PM 208 mg/dL N Blood chemistry[[id number]] Glucose [Mass/volume] in Serum or Plasma [2345-7] 11/11/2024 01:03 PM 120 mg/dL N Blood chemistry[[id number]] Glucose [Mass/volume] in Serum or Plasma [2345-7] 11/11/2024 01:02 PM 120 mg/dL N Blood chemistry[[id number]] Glucose [Mass/volume] in Serum or Plasma [2345-7] 11/11/2024 09:23 AM 279 mg/dL N Blood chemistry[[id number]] Glucose [Mass/volume] in Serum or Plasma [2345-7] 11/10/2024 04:40 PM 373 mg/dL N Blood chemistry[[id number]] Glucose [Mass/volume] in Serum or Plasma [2345-7] 11/10/2024 01:42 PM 129 mg/dL N Blood chemistry[[id number]] Glucose [Mass/volume] in Serum or Plasma [2345-7] 11/10/2024 01:20 PM 192 mg/dL N Blood chemistry[[id number]] Glucose [Mass/volume] in Serum or Plasma [2345-7] 11/10/2024 10:19 AM 279 mg/dL N Blood chemistry[[id number]] Glucose [Mass/volume] in Serum or Plasma [2345-7] 11/09/2024 01:10 PM 139 mg/dL N Blood chemistry[[id number]] Glucose [Mass/volume] in Serum or Plasma [2345-7] 11/09/2024 05:07 PM 500 mg/dL N Blood chemistry[[id number]] Glucose [Mass/volume] in Serum or Plasma [2345-7] 11/09/2024 01:36 PM 199 mg/dL N Blood chemistry[[id number]] Glucose [Mass/volume] in Serum or Plasma [2345-7] 11/09/2024 09:49 AM 234 mg/dL N Blood chemistry[[id number]] Glucose [Mass/volume] in Serum or Plasma [2345-7] 11/08/2024 01:39 PM 192 mg/dL N Blood chemistry[[id number]] Glucose [Mass/volume] in Serum or Plasma [2345-7] 11/08/2024 06:00 PM 250 mg/dL N Blood chemistry[[id number]] Glucose [Mass/volume] in Serum or Plasma [2345-7] 11/08/2024 04:08 PM 250 mg/dL N Blood chemistry[[id number]] Glucose [Mass/volume] in Serum or Plasma [2345-7] 11/08/2024 01:07 PM 186 mg/dL N Blood chemistry[[id number]] Glucose [Mass/volume] in Serum or Plasma [2345-7] 11/08/2024 09:38 AM 248 mg/dL N Blood chemistry[[id number]] Glucose [Mass/volume] in Serum or Plasma [2345-7] 11/07/2024 01:26 PM 283 mg/dL N Blood chemistry[[id number]] Glucose [Mass/volume] in Serum or Plasma [2345-7] 11/07/2024 05:37 PM 235 mg/dL N Blood chemistry[[id number]] Glucose [Mass/volume] in Serum or Plasma [2345-7] 11/07/2024 02:58 PM 181 mg/dL N Blood chemistry[[id number]] Glucose [Mass/volume] in Serum or Plasma [2345-7] 11/07/2024 10:57 AM 187 mg/dL N Blood chemistry[[id number]] Glucose [Mass/volume] in Serum or Plasma [2345-7] 11/06/2024 05:13 PM 237 mg/dL N Blood chemistry[[id number]] Glucose [Mass/volume] in Serum or Plasma [2345-7] 11/06/2024 01:55 PM 192 mg/dL N Blood chemistry[[id number]] Glucose [Mass/volume] in Serum or Plasma [2345-7] 11/06/2024 01:20 PM 147 mg/dL N Blood chemistry[[id number]] Glucose [Mass/volume] in Serum or Plasma [2345-7] 11/06/2024 10:04 AM 203 mg/dL N Glucose [Mass/volume] in Serum or Plasma [2345-7] 11/06/2024 10:04 AM 203 mg/dL N Blood chemistry[[id number]] Glucose [Mass/volume] in Serum or Plasma [2345-7] 11/05/2024 02:05 PM 185 mg/dL N Blood chemistry[[id number]] Glucose [Mass/volume] in Serum or Plasma [2345-7] 11/05/2024 11:53 AM 205 mg/dL N Blood chemistry[[id number]] Glucose [Mass/volume] in Serum or Plasma [2345-7] 11/05/2024 04:56 PM 226 mg/dL N Glucose [Mass/volume] in Serum or Plasma [2345-7] 11/05/2024 04:56 PM 226 mg/dL N Blood chemistry[[id number]] Glucose [Mass/volume] in Serum or Plasma [2345-7] 11/05/2024 01:29 PM 174 mg/dL N Blood chemistry[[id number]] Glucose [Mass/volume] in Serum or Plasma [2345-7] 11/04/2024 05:20 PM 114 mg/dL N Blood chemistry[[id number]] Glucose [Mass/volume] in Serum or Plasma [2345-7] 11/04/2024 05:08 PM 289 mg/dL N Blood chemistry[[id number]] Glucose [Mass/volume] in Serum or Plasma [2345-7] 11/04/2024 01:18 PM 159 mg/dL N Blood chemistry[[id number]] Glucose [Mass/volume] in Serum or Plasma [2345-7] 11/04/2024 12:26 PM 159 mg/dL N Blood chemistry[[id number]] Glucose [Mass/volume] in Serum or Plasma [2345-7] 11/04/2024 10:22 AM 149 mg/dL N Blood chemistry[[id number]] Glucose [Mass/volume] in Serum or Plasma [2345-7] 11/03/2024 04:58 PM 253 mg/dL N Blood chemistry[[id number]] Glucose [Mass/volume] in Serum or Plasma [2345-7] 11/03/2024 03:19 PM 173 mg/dL N Blood chemistry[[id number]] Glucose [Mass/volume] in Serum or Plasma [2345-7] 11/03/2024 02:03 PM 229 mg/dL N Blood chemistry[[id number]] Glucose [Mass/volume] in Serum or Plasma [2345-7] 11/03/2024 01:30 PM 173 mg/dL N Blood chemistry[[id number]] Glucose [Mass/volume] in Serum or Plasma [2345-7] 11/03/2024 10:16 AM 256 mg/dL N Blood chemistry[[id number]] Glucose [Mass/volume] in Serum or Plasma [2345-7] 11/02/2024 03:49 PM 216 mg/dL N Blood chemistry[[id number]] Glucose [Mass/volume] in Serum or Plasma [2345-7] 11/02/2024 10:39 AM 253 mg/dL N Blood chemistry[[id number]] Glucose [Mass/volume] in Serum or Plasma [2345-7] 11/02/2024 05:42 PM 294 mg/dL N Blood chemistry[[id number]] Glucose [Mass/volume] in Serum or Plasma [2345-7] 11/02/2024 01:18 PM 133 mg/dL N Blood chemistry[[id number]] Glucose [Mass/volume] in Serum or Plasma [2345-7] 11/01/2024 02:45 PM 161 mg/dL N Blood chemistry[[id number]] Glucose [Mass/volume] in Serum or Plasma [2345-7] 11/01/2024 05:29 PM 305 mg/dL N Blood chemistry[[id number]] Glucose [Mass/volume] in Serum or Plasma [2345-7] 11/01/2024 03:17 PM 144 mg/dL N Blood chemistry[[id number]] Glucose [Mass/volume] in Serum or Plasma [2345-7] 11/01/2024 10:32 AM 281 mg/dL N Blood chemistry[[id number]] Glucose [Mass/volume] in Serum or Plasma [2345-7] 10/31/2024 02:03 PM 231 mg/dL N Blood chemistry[[id number]] Glucose [Mass/volume] in Serum or Plasma [2345-7] 10/31/2024 04:19 PM 207 mg/dL N Blood chemistry[[id number]] Glucose [Mass/volume] in Serum or Plasma [2345-7] 10/31/2024 01:30 PM 161 mg/dL N Blood chemistry[[id number]] Glucose [Mass/volume] in Serum or Plasma [2345-7] 10/31/2024 09:54 AM 337 mg/dL N Glucose [Mass/volume] in Serum or Plasma [2345-7] 10/31/2024 09:54 AM 337 mg/dL N Blood chemistry[[id number]] Glucose [Mass/volume] in Serum or Plasma [2345-7] 10/30/2024 05:27 PM 268 mg/dL N Blood chemistry[[id number]] Glucose [Mass/volume] in Serum or Plasma [2345-7] 10/30/2024 04:23 PM 193 mg/dL N Blood chemistry[[id number]] Glucose [Mass/volume] in Serum or Plasma [2345-7] 10/30/2024 02:17 PM 132 mg/dL N Blood chemistry[[id number]] Glucose [Mass/volume] in Serum or Plasma [2345-7] 10/30/2024 10:20 AM 126 mg/dL N Blood chemistry[[id number]] Glucose [Mass/volume] in Serum or Plasma [2345-7] 10/29/2024 01:38 PM 110 mg/dL N Blood chemistry[[id number]] Glucose [Mass/volume] in Serum or Plasma [2345-7] 10/29/2024 10:37 AM 197 mg/dL N Blood chemistry[[id number]] Glucose [Mass/volume] in Serum or Plasma [2345-7] 10/29/2024 06:26 PM 250 mg/dL N Blood chemistry[[id number]] Glucose [Mass/volume] in Serum or Plasma [2345-7] 10/29/2024 03:09 PM 106 mg/dL N Blood chemistry[[id number]] Glucose [Mass/volume] in Serum or Plasma [2345-7] 10/28/2024 05:26 PM 206 mg/dL N Blood chemistry[[id number]] Glucose [Mass/volume] in Serum or Plasma [2345-7] 10/28/2024 02:32 PM 153 mg/dL N Blood chemistry[[id number]] Glucose [Mass/volume] in Serum or Plasma [2345-7] 10/28/2024 01:23 PM 108 mg/dL N Blood chemistry[[id number]] Glucose [Mass/volume] in Serum or Plasma [2345-7] 10/28/2024 10:11 AM 315 mg/dL N Blood chemistry[[id number]] Glucose [Mass/volume] in Serum or Plasma [2345-7] 10/27/2024 04:39 PM 217 mg/dL N Blood chemistry[[id number]] Glucose [Mass/volume] in Serum or Plasma [2345-7] 10/27/2024 02:11 PM 187 mg/dL N Blood chemistry[[id number]] Glucose [Mass/volume] in Serum or Plasma [2345-7] 10/27/2024 09:35 AM 328 mg/dL N Blood chemistry[[id number]] Glucose [Mass/volume] in Serum or Plasma [2345-7] 10/27/2024 01:17 PM 134 mg/dL N Blood chemistry[[id number]] Glucose [Mass/volume] in Serum or Plasma [2345-7] 10/26/2024 01:31 PM 167 mg/dL N Blood chemistry[[id number]] Glucose [Mass/volume] in Serum or Plasma [2345-7] 10/26/2024 10:33 AM 401 mg/dL N Glucose [Mass/volume] in Serum or Plasma [2345-7] 10/26/2024 10:33 AM 401 mg/dL N Blood chemistry[[id number]] Glucose [Mass/volume] in Serum or Plasma [2345-7] 10/26/2024 07:28 AM 396 mg/dL N Glucose [Mass/volume] in Serum or Plasma [2345-7] 10/26/2024 07:28 AM 396 mg/dL N Glucose [Mass/volume] in Serum or Plasma [2345-7] 10/26/2024 07:28 AM 396 mg/dL N Blood chemistry[[id number]] Glucose [Mass/volume] in Serum or Plasma [2345-7] 10/26/2024 07:27 AM 111 mg/dL N Blood chemistry[[id number]] Glucose [Mass/volume] in Serum or Plasma [2345-7] 10/25/2024 04:41 PM 178 mg/dL N Blood chemistry[[id number]] Glucose [Mass/volume] in Serum or Plasma [2345-7] 10/25/2024 01:39 PM 306 mg/dL N Blood chemistry[[id number]] Glucose [Mass/volume] in Serum or Plasma [2345-7] 10/25/2024 10:19 AM 223 mg/dL N Blood chemistry[] Glucose [Mass/volume] in Serum or Plasma [2345-7] 10/25/2024 01:35 PM 119 mg/dL N Blood chemistry[[id number]] Glucose [Mass/volume] in Serum or Plasma [2345-7] 10/24/2024 05:11 PM 235 mg/dL N Blood chemistry[[id number]] Glucose [Mass/volume] in Serum or Plasma [2345-7] 10/24/2024 02:24 PM 162 mg/dL N Blood chemistry[[id number]] Glucose [Mass/volume] in Serum or Plasma [2345-7] 10/24/2024 12:40 PM 154 mg/dL N Glucose [Mass/volume] in Serum or Plasma [2345-7] 10/24/2024 12:40 PM 154 mg/dL N Blood chemistry[[id number]] Glucose [Mass/volume] in Serum or Plasma [2345-7] 10/24/2024 10:32 AM 203 mg/dL N Blood chemistry[[id number]] Glucose [Mass/volume] in Serum or Plasma [2345-7] 10/23/2024 02:05 PM 197 mg/dL N Blood chemistry[[id number]] Glucose [Mass/volume] in Serum or Plasma [2345-7] 10/23/2024 10:08 AM 153 mg/dL N Blood chemistry[[id number]] Glucose [Mass/volume] in Serum or Plasma [2345-7] 10/23/2024 05:30 PM 199 mg/dL N Blood chemistry[[id number]] Glucose [Mass/volume] in Serum or Plasma [2345-7] 10/23/2024 05:25 PM 154 mg/dL N Blood chemistry[[id number]] Glucose [Mass/volume] in Serum or Plasma [2345-7] 10/22/2024 01:58 PM 173 mg/dL N Blood chemistry[[id number]] Glucose [Mass/volume] in Serum or Plasma [2345-7] 10/22/2024 10:16 AM 110 mg/dL N Blood chemistry[[id number]] Glucose [Mass/volume] in Serum or Plasma [2345-7] 10/22/2024 05:40 PM 230 mg/dL N Blood chemistry[] Glucose [Mass/volume] in Serum or Plasma [2345-7] 10/22/2024 03:26 PM 158 mg/dL N Blood chemistry[[id number]] Glucose [Mass/volume] in Serum or Plasma [2345-7] 10/21/2024 01:52 PM 156 mg/dL N Blood chemistry[[id number]] Glucose [Mass/volume] in Serum or Plasma [2345-7] 10/21/2024 05:00 PM 243 mg/dL N Blood chemistry[[id number]] Glucose [Mass/volume] in Serum or Plasma [2345-7] 10/21/2024 12:24 PM 103 mg/dL N Blood chemistry[[id number]] Glucose [Mass/volume] in Serum or Plasma [2345-7] 10/21/2024 10:41 AM 174 mg/dL N Blood chemistry[[id number]] Glucose [Mass/volume] in Serum or Plasma [2345-7] 10/20/2024 04:37 PM 204 mg/dL N Blood chemistry[[id number]] Glucose [Mass/volume] in Serum or Plasma [2345-7] 10/20/2024 02:23 PM 146 mg/dL N Blood chemistry[[id number]] Glucose [Mass/volume] in Serum or Plasma [2345-7] 10/20/2024 10:03 AM 222 mg/dL N Blood chemistry[[id number]] Glucose [Mass/volume] in Serum or Plasma [2345-7] 10/20/2024 12:31 PM 121 mg/dL N Blood chemistry[[id number]] Glucose [Mass/volume] in Serum or Plasma [2345-7] 10/19/2024 01:11 PM 241 mg/dL N Blood chemistry[[id number]] Glucose [Mass/volume] in Serum or Plasma [2345-7] 10/19/2024 04:59 PM 217 mg/dL N Blood chemistry[[id number]] Glucose [Mass/volume] in Serum or Plasma [2345-7] 10/19/2024 02:13 PM 122 mg/dL N Blood chemistry[[id number]] Glucose [Mass/volume] in Serum or Plasma [2345-7] 10/19/2024 09:02 AM 165 mg/dL N Blood chemistry[[id number]] Glucose [Mass/volume] in Serum or Plasma [2345-7] 10/18/2024 04:38 PM 247 mg/dL N Blood chemistry[[id number]] Glucose [Mass/volume] in Serum or Plasma [2345-7] 10/18/2024 01:21 PM 132 mg/dL N Glucose [Mass/volume] in Serum or Plasma [2345-7] 10/18/2024 01:21 PM 132 mg/dL N Blood chemistry[[id number]] Glucose [Mass/volume] in Serum or Plasma [2345-7] 10/18/2024 01:20 PM 169 mg/dL N Glucose [Mass/volume] in Serum or Plasma [2345-7] 10/18/2024 01:20 PM 132 mg/dL N Blood chemistry[[id number]] Glucose [Mass/volume] in Serum or Plasma [2345-7] 10/18/2024 09:59 AM 153 mg/dL N Blood chemistry[[id number]] Glucose [Mass/volume] in Serum or Plasma [2345-7] 10/17/2024 04:10 PM 184 mg/dL N Blood chemistry[[id number]] Glucose [Mass/volume] in Serum or Plasma [2345-7] 10/17/2024 03:24 PM 252 mg/dL N Blood chemistry[[id number]] Glucose [Mass/volume] in Serum or Plasma [2345-7] 10/17/2024 01:57 PM 121 mg/dL N Blood chemistry[[id number]] Glucose [Mass/volume] in Serum or Plasma [2345-7] 10/17/2024 09:39 AM 201 mg/dL N Blood chemistry[[id number]] Glucose [Mass/volume] in Serum or Plasma [2345-7] 10/16/2024 05:30 PM 170 mg/dL N Blood chemistry[[id number]] Glucose [Mass/volume] in Serum or Plasma [2345-7] 10/16/2024 02:39 PM 239 mg/dL N Blood chemistry[[id number]] Glucose [Mass/volume] in Serum or Plasma [2345-7] 10/16/2024 01:59 PM 193 mg/dL N Blood chemistry[[id number]] Glucose [Mass/volume] in Serum or Plasma [2345-7] 10/16/2024 01:48 PM 239 mg/dL N Blood chemistry[[id number]] Glucose [Mass/volume] in Serum or Plasma [2345-7] 10/16/2024 12:50 PM 190 mg/dL N Blood chemistry[[id number]] Glucose [Mass/volume] in Serum or Plasma [2345-7] 10/16/2024 10:22 AM 190 mg/dL N Blood chemistry[[id number]] Glucose [Mass/volume] in Serum or Plasma [2345-7] 10/15/2024 06:09 PM 314 mg/dL N Blood chemistry[[id number]] Glucose [Mass/volume] in Serum or Plasma [2345-7] 10/15/2024 02:59 PM 93 mg/dL N Blood chemistry[[id number]] Glucose [Mass/volume] in Serum or Plasma [2345-7] 10/15/2024 01:54 PM 141 mg/dL N Blood chemistry[[id number]] Glucose [Mass/volume] in Serum or Plasma [2345-7] 10/15/2024 01:24 PM 134 mg/dL N Blood chemistry[[id number]] Glucose [Mass/volume] in Serum or Plasma [2345-7] 10/15/2024 10:01 AM 134 mg/dL N Blood chemistry[[id number]] Glucose [Mass/volume] in Serum or Plasma [2345-7] 10/14/2024 05:33 PM 177 mg/dL N Blood chemistry[[id number]] Glucose [Mass/volume] in Serum or Plasma [2345-7] 10/14/2024 04:14 PM 152 mg/dL N Blood chemistry[[id number]] Glucose [Mass/volume] in Serum or Plasma [2345-7] 10/14/2024 01:19 PM 101 mg/dL N Blood chemistry[[id number]] Glucose [Mass/volume] in Serum or Plasma [2345-7] 10/14/2024 09:47 AM 220 mg/dL N Blood chemistry[[id number]] Glucose [Mass/volume] in Serum or Plasma [2345-7] 10/13/2024 04:56 PM 194 mg/dL N Blood chemistry[[id number]] Glucose [Mass/volume] in Serum or Plasma [2345-7] 10/13/2024 03:08 PM 193 mg/dL N Blood chemistry[[id number]] Glucose [Mass/volume] in Serum or Plasma [2345-7] 10/13/2024 01:47 PM 114 mg/dL N Blood chemistry[[id number]] Glucose [Mass/volume] in Serum or Plasma [2345-7] 10/13/2024 10:29 AM 219 mg/dL N Blood chemistry[[id number]] Glucose [Mass/volume] in Serum or Plasma [2345-7] 10/12/2024 04:40 PM 175 mg/dL N Blood chemistry[[id number]] Glucose [Mass/volume] in Serum or Plasma [2345-7] 10/12/2024 01:34 PM 306 mg/dL N Blood chemistry[[id number]] Glucose [Mass/volume] in Serum or Plasma [2345-7] 10/12/2024 01:20 PM 78 mg/dL N Blood chemistry[[id number]] Glucose [Mass/volume] in Serum or Plasma [2345-7] 10/12/2024 10:00 AM 188 mg/dL N Blood chemistry[[id number]] Glucose [Mass/volume] in Serum or Plasma [2345-7] 10/11/2024 04:15 PM 239 mg/dL N Blood chemistry[[id number]] Glucose [Mass/volume] in Serum or Plasma [2345-7] 10/11/2024 01:35 PM 175 mg/dL N Glucose [Mass/volume] in Serum or Plasma [2345-7] 10/11/2024 01:35 PM 116 mg/dL N Blood chemistry[[id number]] Glucose [Mass/volume] in Serum or Plasma [2345-7] 10/11/2024 09:51 AM 189 mg/dL N Blood chemistry[[id number]] Glucose [Mass/volume] in Serum or Plasma [2345-7] 10/10/2024 04:50 PM 162 mg/dL N Blood chemistry[[id number]] Glucose [Mass/volume] in Serum or Plasma [2345-7] 10/10/2024 04:49 PM 162 mg/dL N Blood chemistry[[id number]] Glucose [Mass/volume] in Serum or Plasma [2345-7] 10/10/2024 01:03 PM 135 mg/dL N Blood chemistry[[id number]] Glucose [Mass/volume] in Serum or Plasma [2345-7] 10/10/2024 12:43 PM 117 mg/dL N Blood chemistry[[id number]] Glucose [Mass/volume] in Serum or Plasma [2345-7] 10/10/2024 09:57 AM 231 mg/dL N Blood chemistry[[id number]] Glucose [Mass/volume] in Serum or Plasma [2345-7] 10/09/2024 05:12 PM 217 mg/dL N Blood chemistry[[id number]] Glucose [Mass/volume] in Serum or Plasma [2345-7] 10/09/2024 04:01 PM 228 mg/dL N Blood chemistry[[id number]] Glucose [Mass/volume] in Serum or Plasma [2345-7] 10/09/2024 02:55 PM 123 mg/dL N Blood chemistry[[id number]] Glucose [Mass/volume] in Serum or Plasma [2345-7] 10/09/2024 10:29 AM 107 mg/dL N Blood chemistry[[id number]] Glucose [Mass/volume] in Serum or Plasma [2345-7] 10/08/2024 05:38 PM 156 mg/dL N Blood chemistry[[id number]] Glucose [Mass/volume] in Serum or Plasma [2345-7] 10/08/2024 03:25 PM 193 mg/dL N Blood chemistry[[id number]] Glucose [Mass/volume] in Serum or Plasma [2345-7] 10/08/2024 01:26 PM 107 mg/dL N Blood chemistry[[id number]] Glucose [Mass/volume] in Serum or Plasma [2345-7] 10/08/2024 10:55 AM 108 mg/dL N Blood chemistry[[id number]] Glucose [Mass/volume] in Serum or Plasma [2345-7] 10/07/2024 05:02 PM 116 mg/dL N Blood chemistry[[id number]] Glucose [Mass/volume] in Serum or Plasma [2345-7] 10/07/2024 04:29 PM 116 mg/dL N Blood chemistry[[id number]] Glucose [Mass/volume] in Serum or Plasma [2345-7] 10/07/2024 03:01 PM 299 mg/dL N Blood chemistry[[id number]] Glucose [Mass/volume] in Serum or Plasma [2345-7] 10/07/2024 12:36 PM 104 mg/dL N Blood chemistry[[id number]] Glucose [Mass/volume] in Serum or Plasma [2345-7] 10/07/2024 09:41 AM 140 mg/dL N Blood chemistry[[id number]] Glucose [Mass/volume] in Serum or Plasma [2345-7] 10/06/2024 04:26 PM 438 mg/dL N Blood chemistry[[id number]] Glucose [Mass/volume] in Serum or Plasma [2345-7] 10/06/2024 03:02 PM 238 mg/dL N Blood chemistry[[id number]] Glucose [Mass/volume] in Serum or Plasma [2345-7] 10/06/2024 01:37 PM 109 mg/dL N Blood chemistry[[id number]] Glucose [Mass/volume] in Serum or Plasma [2345-7] 10/06/2024 09:43 AM 77 mg/dL N Blood chemistry[[id number]] Glucose [Mass/volume] in Serum or Plasma [2345-7] 10/05/2024 04:43 PM 202 mg/dL N Blood chemistry[[id number]] Glucose [Mass/volume] in Serum or Plasma [2345-7] 10/05/2024 01:45 PM 159 mg/dL N Blood chemistry[[id number]] Glucose [Mass/volume] in Serum or Plasma [2345-7] 10/05/2024 12:27 PM 145 mg/dL N Blood chemistry[[id number]] Glucose [Mass/volume] in Serum or Plasma [2345-7] 10/05/2024 10:18 AM 232 mg/dL N Blood chemistry[[id number]] Glucose [Mass/volume] in Serum or Plasma [2345-7] 10/04/2024 05:01 PM 199 mg/dL N Blood chemistry[[id number]] Glucose [Mass/volume] in Serum or Plasma [2345-7] 10/04/2024 01:52 PM 112 mg/dL N Blood chemistry[[id number]] Glucose [Mass/volume] in Serum or Plasma [2345-7] 10/04/2024 01:33 PM 235 mg/dL N Blood chemistry[[id number]] Glucose [Mass/volume] in Serum or Plasma [2345-7] 10/04/2024 10:11 AM 297 mg/dL N Blood chemistry[[id number]] Glucose [Mass/volume] in Serum or Plasma [2345-7] 10/03/2024 04:43 PM 189 mg/dL N Blood chemistry[[id number]] Glucose [Mass/volume] in Serum or Plasma [2345-7] 10/03/2024 02:32 PM 195 mg/dL N Blood chemistry[[id number]] Glucose [Mass/volume] in Serum or Plasma [2345-7] 10/03/2024 01:18 PM 164 mg/dL N Blood chemistry[[id number]] Glucose [Mass/volume] in Serum or Plasma [2345-7] 10/03/2024 09:47 AM 160 mg/dL N Blood chemistry[[id number]] Glucose [Mass/volume] in Serum or Plasma [2345-7] 10/02/2024 06:23 PM 109 mg/dL N Blood chemistry[[id number]] Glucose [Mass/volume] in Serum or Plasma [2345-7] 10/02/2024 05:15 PM 239 mg/dL N Blood chemistry[[id number]] Glucose [Mass/volume] in Serum or Plasma [2345-7] 10/02/2024 05:07 PM 98 mg/dL N Blood chemistry[[id number]] Glucose [Mass/volume] in Serum or Plasma [2345-7] 10/02/2024 02:12 PM 129 mg/dL N Blood chemistry[[id number]] Glucose [Mass/volume] in Serum or Plasma [2345-7] 10/02/2024 12:21 PM 132 mg/dL N Blood chemistry[[id number]] Glucose [Mass/volume] in Serum or Plasma [2345-7] 10/02/2024 10:14 AM 132 mg/dL N Blood chemistry[[id number]] Glucose [Mass/volume] in Serum or Plasma [2345-7] 10/01/2024 05:11 PM 146 mg/dL N Blood chemistry[[id number]] Glucose [Mass/volume] in Serum or Plasma [2345-7] 10/01/2024 02:37 PM 100 mg/dL N Blood chemistry[[id number]] Glucose [Mass/volume] in Serum or Plasma [2345-7] 10/01/2024 10:27 AM 173 mg/dL N Blood chemistry[[id number]] Glucose [Mass/volume] in Serum or Plasma [2345-7] 09/30/2024 05:10 PM 206 mg/dL N Blood chemistry[[id number]] Glucose [Mass/volume] in Serum or Plasma [2345-7] 09/30/2024 05:03 PM 230 mg/dL N Blood chemistry[[id number]] Glucose [Mass/volume] in Serum or Plasma [2345-7] 09/30/2024 02:45 PM 66 mg/dL N Blood chemistry[[id number]] Glucose [Mass/volume] in Serum or Plasma [2345-7] 09/30/2024 10:13 AM 270 mg/dL N Blood chemistry[[id number]] Glucose [Mass/volume] in Serum or Plasma [2345-7] 09/29/2024 04:27 PM 154 mg/dL N Glucose [Mass/volume] in Serum or Plasma [2345-7] 09/29/2024 04:27 PM 154 mg/dL N Blood chemistry[[id number]] Glucose [Mass/volume] in Serum or Plasma [2345-7] 09/29/2024 02:15 PM 332 mg/dL N Blood chemistry[[id number]] Glucose [Mass/volume] in Serum or Plasma [2345-7] 09/29/2024 01:46 PM 280 mg/dL N Blood chemistry[[id number]] Glucose [Mass/volume] in Serum or Plasma [2345-7] 09/29/2024 09:49 AM 119 mg/dL N Blood chemistry[[id number]] Glucose [Mass/volume] in Serum or Plasma [2345-7] 09/28/2024 04:46 PM 199 mg/dL N Blood chemistry[[id number]] Glucose [Mass/volume] in Serum or Plasma [2345-7] 09/28/2024 04:33 PM 199 mg/dL N Blood chemistry[[id number]] Glucose [Mass/volume] in Serum or Plasma [2345-7] 09/28/2024 01:05 PM 114 mg/dL N Blood chemistry[[id number]] Glucose [Mass/volume] in Serum or Plasma [2345-7] 09/28/2024 01:04 PM 154 mg/dL N Blood chemistry[[id number]] Glucose [Mass/volume] in Serum or Plasma [2345-7] 09/28/2024 09:40 AM 196 mg/dL N Blood chemistry[[id number]] Glucose [Mass/volume] in Serum or Plasma [2345-7] 09/27/2024 04:32 PM 219 mg/dL N Blood chemistry[[id number]] Glucose [Mass/volume] in Serum or Plasma [2345-7] 09/27/2024 01:55 PM 173 mg/dL N Blood chemistry[[id number]] Glucose [Mass/volume] in Serum or Plasma [2345-7] 09/27/2024 01:48 PM 222 mg/dL N Blood chemistry[[id number]] Glucose [Mass/volume] in Serum or Plasma [2345-7] 09/27/2024 10:12 AM 178 mg/dL N Blood chemistry[[id number]] Glucose [Mass/volume] in Serum or Plasma [2345-7] 09/26/2024 04:42 PM 303 mg/dL N Blood chemistry[[id number]] Glucose [Mass/volume] in Serum or Plasma [2345-7] 09/26/2024 02:18 PM 170 mg/dL N Blood chemistry[[id number]] Glucose [Mass/volume] in Serum or Plasma [2345-7] 09/26/2024 12:31 PM 248 mg/dL N Blood chemistry[[id number]] Glucose [Mass/volume] in Serum or Plasma [2345-7] 09/26/2024 10:26 AM 216 mg/dL N Blood chemistry[[id number]] Glucose [Mass/volume] in Serum or Plasma [2345-7] 09/25/2024 06:13 PM 219 mg/dL N Blood chemistry[[id number]] Glucose [Mass/volume] in Serum or Plasma [2345-7] 09/25/2024 05:16 PM 219 mg/dL N Blood chemistry[[id number]] Glucose [Mass/volume] in Serum or Plasma [2345-7] 09/25/2024 01:52 PM 120 mg/dL N Blood chemistry[[id number]] Glucose [Mass/volume] in Serum or Plasma [2345-7] 09/25/2024 01:32 PM 117 mg/dL N Blood chemistry[[id number]] Glucose [Mass/volume] in Serum or Plasma [2345-7] 09/25/2024 10:01 AM 138 mg/dL N Blood chemistry[[id number]] Glucose [Mass/volume] in Serum or Plasma [2345-7] 09/24/2024 05:32 PM 252 mg/dL N Blood chemistry[[id number]] Glucose [Mass/volume] in Serum or Plasma [2345-7] 09/24/2024 02:22 PM 285 mg/dL N Blood chemistry[[id number]] Glucose [Mass/volume] in Serum or Plasma [2345-7] 09/24/2024 01:54 PM 137 mg/dL N Blood chemistry[[id number]] Glucose [Mass/volume] in Serum or Plasma [2345-7] 09/24/2024 10:22 AM 88 mg/dL N Blood chemistry[[id number]] Glucose [Mass/volume] in Serum or Plasma [2345-7] 09/23/2024 06:27 PM 204 mg/dL N Blood chemistry[[id number]] Glucose [Mass/volume] in Serum or Plasma [2345-7] 09/23/2024 05:08 PM 323 mg/dL N Blood chemistry[[id number]] Glucose [Mass/volume] in Serum or Plasma [2345-7] 09/23/2024 03:05 PM 166 mg/dL N Blood chemistry[[id number]] Glucose [Mass/volume] in Serum or Plasma [2345-7] 09/23/2024 12:39 PM 148 mg/dL N Blood chemistry[[id number]] Glucose [Mass/volume] in Serum or Plasma [2345-7] 09/23/2024 10:11 AM 202 mg/dL N Blood chemistry[[id number]] Glucose [Mass/volume] in Serum or Plasma [2345-7] 09/22/2024 05:06 PM 119 mg/dL N Blood chemistry[[id number]] Glucose [Mass/volume] in Serum or Plasma [2345-7] 09/22/2024 05:05 PM 119 mg/dL N Blood chemistry[[id number]] Glucose [Mass/volume] in Serum or Plasma [2345-7] 09/22/2024 12:57 PM 146 mg/dL N Blood chemistry[[id number]] Glucose [Mass/volume] in Serum or Plasma [2345-7] 09/22/2024 10:11 AM 207 mg/dL N Blood chemistry[[id number]] Glucose [Mass/volume] in Serum or Plasma [2345-7] 09/21/2024 04:45 PM 267 mg/dL N Blood chemistry[[id number]] Glucose [Mass/volume] in Serum or Plasma [2345-7] 09/21/2024 01:51 PM 184 mg/dL N Blood chemistry[[id number]] Glucose [Mass/volume] in Serum or Plasma [2345-7] 09/21/2024 12:27 PM 173 mg/dL N Blood chemistry[[id number]] Glucose [Mass/volume] in Serum or Plasma [2345-7] 09/21/2024 10:02 AM 278 mg/dL N Blood chemistry[[id number]] Glucose [Mass/volume] in Serum or Plasma [2345-7] 09/20/2024 04:52 PM 294 mg/dL N Blood chemistry[[id number]] Glucose [Mass/volume] in Serum or Plasma [2345-7] 09/20/2024 01:40 PM 157 mg/dL N Blood chemistry[[id number]] Glucose [Mass/volume] in Serum or Plasma [2345-7] 09/20/2024 01:28 PM 245 mg/dL N Blood chemistry[[id number]] Glucose [Mass/volume] in Serum or Plasma [2345-7] 09/20/2024 10:15 AM 245 mg/dL N Blood chemistry[[id number]] Glucose [Mass/volume] in Serum or Plasma [2345-7] 09/20/2024 10:11 AM 245 mg/dL N Blood chemistry[[id number]] Glucose [Mass/volume] in Serum or Plasma [2345-7] 09/19/2024 05:00 PM 325 mg/dL N Blood chemistry[[id number]] Glucose [Mass/volume] in Serum or Plasma [2345-7] 09/19/2024 12:43 PM 175 mg/dL N Blood chemistry[[id number]] Glucose [Mass/volume] in Serum or Plasma [2345-7] 09/19/2024 12:35 PM 193 mg/dL N Blood chemistry[[id number]] Glucose [Mass/volume] in Serum or Plasma [2345-7] 09/19/2024 10:15 AM 94 mg/dL N Blood chemistry[[id number]] Glucose [Mass/volume] in Serum or Plasma [2345-7] 09/18/2024 05:41 PM 346 mg/dL N Blood chemistry[[id number]] Glucose [Mass/volume] in Serum or Plasma [2345-7] 09/18/2024 04:41 PM 273 mg/dL N Blood chemistry[[id number]] Glucose [Mass/volume] in Serum or Plasma [2345-7] 09/18/2024 03:32 PM 183 mg/dL N Blood chemistry[[id number]] Glucose [Mass/volume] in Serum or Plasma [2345-7] 09/18/2024 10:28 AM 266 mg/dL N Blood chemistry[[id number]] Glucose [Mass/volume] in Serum or Plasma [2345-7] 09/17/2024 06:50 PM 197 mg/dL N Blood chemistry[[id number]] Glucose [Mass/volume] in Serum or Plasma [2345-7] 09/17/2024 05:50 PM 149 mg/dL N Blood chemistry[[id number]] Glucose [Mass/volume] in Serum or Plasma [2345-7] 09/17/2024 01:04 PM 150 mg/dL N Blood chemistry[[id number]] Glucose [Mass/volume] in Serum or Plasma [2345-7] 09/17/2024 10:52 AM 192 mg/dL N Blood chemistry[[id number]] Glucose [Mass/volume] in Serum or Plasma [2345-7] 09/16/2024 05:06 PM 222 mg/dL N Blood chemistry[[id number]] Glucose [Mass/volume] in Serum or Plasma [2345-7] 09/16/2024 04:56 PM 188 mg/dL N Blood chemistry[[id number]] Glucose [Mass/volume] in Serum or Plasma [2345-7] 09/16/2024 12:55 PM 118 mg/dL N Blood chemistry[[id number]] Glucose [Mass/volume] in Serum or Plasma [2345-7] 09/16/2024 10:19 AM 245 mg/dL N Blood chemistry[[id number]] Glucose [Mass/volume] in Serum or Plasma [2345-7] 09/15/2024 05:17 PM 288 mg/dL N Blood chemistry[[id number]] Glucose [Mass/volume] in Serum or Plasma [2345-7] 09/15/2024 01:44 PM 174 mg/dL N Blood chemistry[[id number]] Glucose [Mass/volume] in Serum or Plasma [2345-7] 09/15/2024 01:01 PM 115 mg/dL N Blood chemistry[[id number]] Glucose [Mass/volume] in Serum or Plasma [2345-7] 09/15/2024 10:42 AM 300 mg/dL N Blood chemistry[[id number]] Glucose [Mass/volume] in Serum or Plasma [2345-7] 09/14/2024 05:24 PM 230 mg/dL N Blood chemistry[[id number]] Glucose [Mass/volume] in Serum or Plasma [2345-7] 09/14/2024 01:28 PM 148 mg/dL N Blood chemistry[[id number]] Glucose [Mass/volume] in Serum or Plasma [2345-7] 09/14/2024 12:44 PM 115 mg/dL N Blood chemistry[[id number]] Glucose [Mass/volume] in Serum or Plasma [2345-7] 09/14/2024 10:08 AM 120 mg/dL N Blood chemistry[[id number]] Glucose [Mass/volume] in Serum or Plasma [2345-7] 09/13/2024 04:36 PM 203 mg/dL N Blood chemistry[[id number]] Glucose [Mass/volume] in Serum or Plasma [2345-7] 09/13/2024 02:08 PM 173 mg/dL N Blood chemistry[[id number]] Glucose [Mass/volume] in Serum or Plasma [2345-7] 09/13/2024 02:07 PM 173 mg/dL N Blood chemistry[[id number]] Glucose [Mass/volume] in Serum or Plasma [2345-7] 09/13/2024 01:52 PM 240 mg/dL N Blood chemistry[[id number]] Glucose [Mass/volume] in Serum or Plasma [2345-7] 09/13/2024 10:10 AM 181 mg/dL N Blood chemistry[[id number]] Glucose [Mass/volume] in Serum or Plasma [2345-7] 09/12/2024 05:48 PM 219 mg/dL N Blood chemistry[[id number]] Glucose [Mass/volume] in Serum or Plasma [2345-7] 09/12/2024 12:57 PM 268 mg/dL N Blood chemistry[[id number]] Glucose [Mass/volume] in Serum or Plasma [2345-7] 09/12/2024 12:42 PM 232 mg/dL N Blood chemistry[[id number]] Glucose [Mass/volume] in Serum or Plasma [2345-7] 09/12/2024 09:58 AM 251 mg/dL N Blood chemistry[[id number]] Glucose [Mass/volume] in Serum or Plasma [2345-7] 09/11/2024 05:27 PM 246 mg/dL N Blood chemistry[[id number]] Glucose [Mass/volume] in Serum or Plasma [2345-7] 09/11/2024 01:57 PM 74 mg/dL N Blood chemistry[[id number]] Glucose [Mass/volume] in Serum or Plasma [2345-7] 09/11/2024 12:51 PM 124 mg/dL N Blood chemistry[[id number]] Glucose [Mass/volume] in Serum or Plasma [2345-7] 09/11/2024 10:15 AM 137 mg/dL N Blood chemistry[[id number]] Glucose [Mass/volume] in Serum or Plasma [2345-7] 09/10/2024 04:56 PM 210 mg/dL N Blood chemistry[[id number]] Glucose [Mass/volume] in Serum or Plasma [2345-7] 09/10/2024 02:38 PM 223 mg/dL N Blood chemistry[[id number]] Glucose [Mass/volume] in Serum or Plasma [2345-7] 09/10/2024 12:22 PM 119 mg/dL N Blood chemistry[[id number]] Glucose [Mass/volume] in Serum or Plasma [2345-7] 09/10/2024 09:25 AM 131 mg/dL N Blood chemistry[[id number]] Glucose [Mass/volume] in Serum or Plasma [2345-7] 09/09/2024 03:38 PM 193 mg/dL N Blood chemistry[[id number]] Glucose [Mass/volume] in Serum or Plasma [2345-7] 09/09/2024 02:40 PM 161 mg/dL N Blood chemistry[[id number]] Glucose [Mass/volume] in Serum or Plasma [2345-7] 09/09/2024 01:06 PM 115 mg/dL N Blood chemistry[[id number]] Glucose [Mass/volume] in Serum or Plasma [2345-7] 09/09/2024 08:25 AM 193 mg/dL N Blood chemistry[[id number]] Glucose [Mass/volume] in Serum or Plasma [2345-7] 09/08/2024 04:23 PM 125 mg/dL N Blood chemistry[[id number]] Glucose [Mass/volume] in Serum or Plasma [2345-7] 09/08/2024 04:22 PM 177 mg/dL N Blood chemistry[[id number]] Glucose [Mass/volume] in Serum or Plasma [2345-7] 09/08/2024 12:15 PM 170 mg/dL N Blood chemistry[[id number]] Glucose [Mass/volume] in Serum or Plasma [2345-7] 09/08/2024 12:14 PM 170 mg/dL N Blood chemistry[[id number]] Glucose [Mass/volume] in Serum or Plasma [2345-7] 09/08/2024 09:25 AM 169 mg/dL N Blood chemistry[[id number]] Glucose [Mass/volume] in Serum or Plasma [2345-7] 09/07/2024 02:29 PM 154 mg/dL N Blood chemistry[[id number]] Glucose [Mass/volume] in Serum or Plasma [2345-7] 09/07/2024 12:44 PM 175 mg/dL N Blood chemistry[[id number]] Glucose [Mass/volume] in Serum or Plasma [2345-7] 09/07/2024 10:41 AM 422 mg/dL N Blood chemistry[[id number]] Glucose [Mass/volume] in Serum or Plasma [2345-7] 09/07/2024 07:31 AM 330 mg/dL N Blood chemistry[[id number]] Glucose [Mass/volume] in Serum or Plasma [2345-7] 09/06/2024 04:59 PM 245 mg/dL N Blood chemistry[[id number]] Glucose [Mass/volume] in Serum or Plasma [2345-7] 09/06/2024 02:51 PM 107 mg/dL N Blood chemistry[[id number]] Glucose [Mass/volume] in Serum or Plasma [2345-7] 09/06/2024 12:07 PM 84 mg/dL N Blood chemistry[[id number]] Glucose [Mass/volume] in Serum or Plasma [2345-7] 09/06/2024 09:16 AM 140 mg/dL N Blood chemistry[[id number]] Glucose [Mass/volume] in Serum or Plasma [2345-7] 09/05/2024 04:25 PM 96 mg/dL N Blood chemistry[[id number]] Glucose [Mass/volume] in Serum or Plasma [2345-7] 09/05/2024 12:50 PM 178 mg/dL N Blood chemistry[[id number]] Glucose [Mass/volume] in Serum or Plasma [2345-7] 09/05/2024 12:38 PM 167 mg/dL N Blood chemistry[[id number]] Glucose [Mass/volume] in Serum or Plasma [2345-7] 09/05/2024 09:37 AM 213 mg/dL N Blood chemistry[[id number]] Glucose [Mass/volume] in Serum or Plasma [2345-7] 09/04/2024 05:13 PM 303 mg/dL N Blood chemistry[[id number]] Glucose [Mass/volume] in Serum or Plasma [2345-7] 09/04/2024 03:56 PM 114 mg/dL N Blood chemistry[[id number]] Glucose [Mass/volume] in Serum or Plasma [2345-7] 09/04/2024 12:09 PM 190 mg/dL N Blood chemistry[[id number]] Glucose [Mass/volume] in Serum or Plasma [2345-7] 09/04/2024 09:34 AM 144 mg/dL N Blood chemistry[[id number]] Glucose [Mass/volume] in Serum or Plasma [2345-7] 09/04/2024 09:33 AM 144 mg/dL N Blood chemistry[[id number]] Glucose [Mass/volume] in Serum or Plasma [2345-7] 09/03/2024 04:15 PM 252 mg/dL N Blood chemistry[[id number]] Glucose [Mass/volume] in Serum or Plasma [2345-7] 09/03/2024 01:02 PM 208 mg/dL N Blood chemistry[[id number]] Glucose [Mass/volume] in Serum or Plasma [2345-7] 09/03/2024 12:53 PM 130 mg/dL N Blood chemistry[[id number]] Glucose [Mass/volume] in Serum or Plasma [2345-7] 09/03/2024 09:01 AM 87 mg/dL N Blood chemistry[[id number]] Glucose [Mass/volume] in Serum or Plasma [2345-7] 09/02/2024 04:45 PM 170 mg/dL N Blood chemistry[[id number]] Glucose [Mass/volume] in Serum or Plasma [2345-7] 09/02/2024 01:13 PM 168 mg/dL N Blood chemistry[[id number]] Glucose [Mass/volume] in Serum or Plasma [2345-7] 09/02/2024 12:09 PM 129 mg/dL N Blood chemistry[[id number]] Glucose [Mass/volume] in Serum or Plasma [2345-7] 09/02/2024 10:01 AM 277 mg/dL N Blood chemistry[[id number]] Glucose [Mass/volume] in Serum or Plasma [2345-7] 09/01/2024 04:15 PM 240 mg/dL N Blood chemistry[[id number]] Glucose [Mass/volume] in Serum or Plasma [2345-7] 09/01/2024 02:35 PM 150 mg/dL N Blood chemistry[[id number]] Glucose [Mass/volume] in Serum or Plasma [2345-7] 09/01/2024 12:48 PM 222 mg/dL N Blood chemistry[[id number]] Glucose [Mass/volume] in Serum or Plasma [2345-7] 09/01/2024 12:14 PM 150 mg/dL N Glucose [Mass/volume] in Serum or Plasma [2345-7] 09/01/2024 12:14 PM 150 mg/dL N Blood chemistry[[id number]] Glucose [Mass/volume] in Serum or Plasma [2345-7] 09/01/2024 09:27 AM 176 mg/dL N Blood chemistry[[id number]] Glucose [Mass/volume] in Serum or Plasma [2345-7] 08/31/2024 04:04 PM 269 mg/dL N Blood chemistry[[id number]] Glucose [Mass/volume] in Serum or Plasma [2345-7] 08/31/2024 04:03 PM 269 mg/dL N Blood chemistry[[id number]] Glucose [Mass/volume] in Serum or Plasma [2345-7] 08/31/2024 01:03 PM 223 mg/dL N Blood chemistry[[id number]] Glucose [Mass/volume] in Serum or Plasma [2345-7] 08/31/2024 12:57 PM 167 mg/dL N Blood chemistry[[id number]] Glucose [Mass/volume] in Serum or Plasma [2345-7] 08/31/2024 10:30 AM 243 mg/dL N Blood chemistry[[id number]] Glucose [Mass/volume] in Serum or Plasma [2345-7] 08/30/2024 04:22 PM 203 mg/dL N Blood chemistry[[id number]] Glucose [Mass/volume] in Serum or Plasma [2345-7] 08/30/2024 12:57 PM 156 mg/dL N Blood chemistry[[id number]] Glucose [Mass/volume] in Serum or Plasma [2345-7] 08/30/2024 12:22 PM 155 mg/dL N Blood chemistry[[id number]] Glucose [Mass/volume] in Serum or Plasma [2345-7] 08/30/2024 08:54 AM 143 mg/dL N COVID-19 Test Viral Antigen null flavor [null] 08/29/2024 05:00 PM See note NEG COVID-19 Test Viral Antigen Blood chemistry[[id number]] Glucose [Mass/volume] in Serum or Plasma [2345-7] 08/29/2024 03:47 PM 160 mg/dL N Blood chemistry[[id number]] Glucose [Mass/volume] in Serum or Plasma [2345-7] 08/29/2024 03:17 PM 182 mg/dL N Blood chemistry[[id number]] Glucose [Mass/volume] in Serum or Plasma [2345-7] 08/29/2024 11:50 AM 95 mg/dL N Blood chemistry[[id number]] Glucose [Mass/volume] in Serum or Plasma [2345-7] 08/29/2024 09:07 AM 216 mg/dL N Blood chemistry[[id number]] Glucose [Mass/volume] in Serum or Plasma [2345-7] 08/28/2024 04:36 PM 214 mg/dL N Blood chemistry[[id number]] Glucose [Mass/volume] in Serum or Plasma [2345-7] 08/28/2024 01:57 PM 117 mg/dL N Blood chemistry[[id number]] Glucose [Mass/volume] in Serum or Plasma [2345-7] 08/28/2024 12:48 PM 125 mg/dL N Blood chemistry[[id number]] Glucose [Mass/volume] in Serum or Plasma [2345-7] 08/28/2024 09:13 AM 185 mg/dL N Blood chemistry[[id number]] Glucose [Mass/volume] in Serum or Plasma [2345-7] 08/27/2024 04:14 PM 318 mg/dL N Blood chemistry[[id number]] Glucose [Mass/volume] in Serum or Plasma [2345-7] 08/27/2024 01:20 PM 259 mg/dL N Blood chemistry[[id number]] Glucose [Mass/volume] in Serum or Plasma [2345-7] 08/27/2024 12:13 PM 117 mg/dL N Blood chemistry[[id number]] Glucose [Mass/volume] in Serum or Plasma [2345-7] 08/27/2024 09:14 AM 196 mg/dL N Blood chemistry[[id number]] Glucose [Mass/volume] in Serum or Plasma [2345-7] 08/26/2024 03:39 PM 254 mg/dL N Blood chemistry[[id number]] Glucose [Mass/volume] in Serum or Plasma [2345-7] 08/26/2024 12:08 PM 178 mg/dL N Blood chemistry[[id number]] Glucose [Mass/volume] in Serum or Plasma [2345-7] 08/26/2024 11:19 AM 192 mg/dL N Blood chemistry[[id number]] Glucose [Mass/volume] in Serum or Plasma [2345-7] 08/26/2024 08:54 AM 280 mg/dL N Blood chemistry[[id number]] Glucose [Mass/volume] in Serum or Plasma [2345-7] 08/25/2024 04:40 PM 236 mg/dL N Blood chemistry[[id number]] Glucose [Mass/volume] in Serum or Plasma [2345-7] 08/25/2024 01:20 PM 210 mg/dL N Blood chemistry[[id number]] Glucose [Mass/volume] in Serum or Plasma [2345-7] 08/25/2024 12:50 PM 194 mg/dL N Blood chemistry[[id number]] Glucose [Mass/volume] in Serum or Plasma [2345-7] 08/25/2024 09:10 AM 445 mg/dL N Blood chemistry[[id number]] Glucose [Mass/volume] in Serum or Plasma [2345-7] 08/24/2024 04:06 PM 403 mg/dL N Blood chemistry[[id number]] Glucose [Mass/volume] in Serum or Plasma [2345-7] 08/24/2024 01:31 PM 264 mg/dL N Blood chemistry[[id number]] Glucose [Mass/volume] in Serum or Plasma [2345-7] 08/24/2024 01:09 PM 346 mg/dL N Blood chemistry[[id number]] Glucose [Mass/volume] in Serum or Plasma [2345-7] 08/24/2024 11:31 AM 264 mg/dL N Blood chemistry[[id number]] Glucose [Mass/volume] in Serum or Plasma [2345-7] 08/24/2024 08:49 AM 376 mg/dL N Blood chemistry[[id number]] Glucose [Mass/volume] in Serum or Plasma [2345-7] 08/23/2024 03:52 PM 260 mg/dL N Blood chemistry[[id number]] Glucose [Mass/volume] in Serum or Plasma [2345-7] 08/23/2024 01:26 PM 400 mg/dL N Blood chemistry[[id number]] Glucose [Mass/volume] in Serum or Plasma [2345-7] 08/23/2024 12:32 PM 186 mg/dL N Blood chemistry[[id number]] Glucose [Mass/volume] in Serum or Plasma [2345-7] 08/23/2024 09:45 AM 257 mg/dL N COVID-19 Test Viral Antigen null flavor [null] 08/22/2024 05:00 PM See note NEG COVID-19 Test Viral Antigen Blood chemistry[[id number]] Glucose [Mass/volume] in Serum or Plasma [2345-7] 08/22/2024 04:19 PM 294 mg/dL N Blood chemistry[[id number]] Glucose [Mass/volume] in Serum or Plasma [2345-7] 08/22/2024 12:47 PM 166 mg/dL N Blood chemistry[[id number]] Glucose [Mass/volume] in Serum or Plasma [2345-7] 08/22/2024 11:47 AM 231 mg/dL N Blood chemistry[[id number]] Glucose [Mass/volume] in Serum or Plasma [2345-7] 08/22/2024 09:35 AM 299 mg/dL N Blood chemistry[[id number]] Glucose [Mass/volume] in Serum or Plasma [2345-7] 08/21/2024 04:26 PM 240 mg/dL N Blood chemistry[[id number]] Glucose [Mass/volume] in Serum or Plasma [2345-7] 08/21/2024 03:36 PM 143 mg/dL N Blood chemistry[[id number]] Glucose [Mass/volume] in Serum or Plasma [2345-7] 08/21/2024 01:08 PM 136 mg/dL N Blood chemistry[[id number]] Glucose [Mass/volume] in Serum or Plasma [2345-7] 08/21/2024 09:17 AM 229 mg/dL N Blood chemistry[[id number]] Glucose [Mass/volume] in Serum or Plasma [2345-7] 08/20/2024 04:05 PM 289 mg/dL N Blood chemistry[[id number]] Glucose [Mass/volume] in Serum or Plasma [2345-7] 08/20/2024 03:11 PM 310 mg/dL N Blood chemistry[[id number]] Glucose [Mass/volume] in Serum or Plasma [2345-7] 08/20/2024 12:14 PM 121 mg/dL N Blood chemistry[[id number]] Glucose [Mass/volume] in Serum or Plasma [2345-7] 08/20/2024 09:21 AM 245 mg/dL N Blood chemistry[[id number]] Glucose [Mass/volume] in Serum or Plasma [2345-7] 08/19/2024 03:45 PM 318 mg/dL N Blood chemistry[[id number]] Glucose [Mass/volume] in Serum or Plasma [2345-7] 08/19/2024 02:19 PM 126 mg/dL N Blood chemistry[[id number]] Glucose [Mass/volume] in Serum or Plasma [2345-7] 08/19/2024 12:07 PM 130 mg/dL N Blood chemistry[[id number]] Glucose [Mass/volume] in Serum or Plasma [2345-7] 08/19/2024 09:44 AM 272 mg/dL N Blood chemistry[[id number]] Glucose [Mass/volume] in Serum or Plasma [2345-7] 08/18/2024 04:15 PM 333 mg/dL N Blood chemistry[[id number]] Glucose [Mass/volume] in Serum or Plasma [2345-7] 08/18/2024 12:19 PM 188 mg/dL N Blood chemistry[[id number]] Glucose [Mass/volume] in Serum or Plasma [2345-7] 08/18/2024 12:00 PM 162 mg/dL N Blood chemistry[[id number]] Glucose [Mass/volume] in Serum or Plasma [2345-7] 08/18/2024 08:45 AM 274 mg/dL N Blood chemistry[[id number]] Glucose [Mass/volume] in Serum or Plasma [2345-7] 08/17/2024 04:04 PM 373 mg/dL N Blood chemistry[[id number]] Glucose [Mass/volume] in Serum or Plasma [2345-7] 08/17/2024 04:03 PM 373 mg/dL N Blood chemistry[[id number]] Glucose [Mass/volume] in Serum or Plasma [2345-7] 08/17/2024 01:17 PM 311 mg/dL N Blood chemistry[[id number]] Glucose [Mass/volume] in Serum or Plasma [2345-7] 08/17/2024 12:36 PM 74 mg/dL N Blood chemistry[[id number]] Glucose [Mass/volume] in Serum or Plasma [2345-7] 08/17/2024 09:01 AM 282 mg/dL N Glucose [Mass/volume] in Serum or Plasma [2345-7] 08/17/2024 09:01 AM 282 mg/dL N Blood chemistry[[id number]] Glucose [Mass/volume] in Serum or Plasma [2345-7] 08/16/2024 11:52 AM 141 mg/dL N Glucose [Mass/volume] in Serum or Plasma [2345-7] 08/16/2024 11:52 AM 141 mg/dL N Blood chemistry[[id number]] Glucose [Mass/volume] in Serum or Plasma [2345-7] 08/16/2024 11:38 AM 295 mg/dL N Blood chemistry[[id number]] Glucose [Mass/volume] in Serum or Plasma [2345-7] 08/16/2024 09:33 AM 351 mg/dL N Blood chemistry[[id number]] Glucose [Mass/volume] in Serum or Plasma [2345-7] 08/16/2024 06:20 AM 295 mg/dL N COVID-19 Test Viral Antigen null flavor [null] 08/15/2024 05:00 PM See note NEG COVID-19 Test Viral Antigen Blood chemistry[[id number]] Glucose [Mass/volume] in Serum or Plasma [2345-7] 08/15/2024 04:22 PM 199 mg/dL N Blood chemistry[[id number]] Glucose [Mass/volume] in Serum or Plasma [2345-7] 08/15/2024 11:41 AM 257 mg/dL N Blood chemistry[[id number]] Glucose [Mass/volume] in Serum or Plasma [2345-7] 08/15/2024 11:39 AM 259 mg/dL N Blood chemistry[[id number]] Glucose [Mass/volume] in Serum or Plasma [2345-7] 08/15/2024 09:28 AM 201 mg/dL N Blood chemistry[[id number]] Glucose [Mass/volume] in Serum or Plasma [2345-7] 08/14/2024 04:20 PM 309 mg/dL N Blood chemistry[[id number]] Glucose [Mass/volume] in Serum or Plasma [2345-7] 08/14/2024 02:22 PM 321 mg/dL N Blood chemistry[[id number]] Glucose [Mass/volume] in Serum or Plasma [2345-7] 08/14/2024 02:16 PM 245 mg/dL N Blood chemistry[[id number]] Glucose [Mass/volume] in Serum or Plasma [2345-7] 08/14/2024 09:23 AM 82 mg/dL N Blood chemistry[[id number]] Glucose [Mass/volume] in Serum or Plasma [2345-7] 08/13/2024 04:04 PM 213 mg/dL N Blood chemistry[[id number]] Glucose [Mass/volume] in Serum or Plasma [2345-7] 08/13/2024 03:15 PM 159 mg/dL N Blood chemistry[[id number]] Glucose [Mass/volume] in Serum or Plasma [2345-7] 08/13/2024 01:19 PM 147 mg/dL N Blood chemistry[[id number]] Glucose [Mass/volume] in Serum or Plasma [2345-7] 08/13/2024 09:25 AM 247 mg/dL N Blood chemistry[[id number]] Glucose [Mass/volume] in Serum or Plasma [2345-7] 08/12/2024 04:42 PM 160 mg/dL N Blood chemistry[[id number]] Glucose [Mass/volume] in Serum or Plasma [2345-7] 08/12/2024 03:37 PM 199 mg/dL N Blood chemistry[[id number]] Glucose [Mass/volume] in Serum or Plasma [2345-7] 08/12/2024 12:50 PM 159 mg/dL N Blood chemistry[[id number]] Glucose [Mass/volume] in Serum or Plasma [2345-7] 08/12/2024 08:49 AM 374 mg/dL N Blood chemistry[[id number]] Glucose [Mass/volume] in Serum or Plasma [2345-7] 08/11/2024 03:29 PM 310 mg/dL N Blood chemistry[[id number]] Glucose [Mass/volume] in Serum or Plasma [2345-7] 08/11/2024 01:55 PM 327 mg/dL N Blood chemistry[[id number]] Glucose [Mass/volume] in Serum or Plasma [2345-7] 08/11/2024 12:49 PM 138 mg/dL N Blood chemistry[[id number]] Glucose [Mass/volume] in Serum or Plasma [2345-7] 08/11/2024 09:11 AM 384 mg/dL N Blood chemistry[[id number]] Glucose [Mass/volume] in Serum or Plasma [2345-7] 08/11/2024 09:10 AM 384 mg/dL N Blood chemistry[[id number]] Glucose [Mass/volume] in Serum or Plasma [2345-7] 08/10/2024 03:35 PM 245 mg/dL N Blood chemistry[[id number]] Glucose [Mass/volume] in Serum or Plasma [2345-7] 08/10/2024 12:42 PM 171 mg/dL N Blood chemistry[[id number]] Glucose [Mass/volume] in Serum or Plasma [2345-7] 08/10/2024 12:32 PM 252 mg/dL N Blood chemistry[[id number]] Glucose [Mass/volume] in Serum or Plasma [2345-7] 08/10/2024 09:08 AM 297 mg/dL N Blood chemistry[[id number]] Glucose [Mass/volume] in Serum or Plasma [2345-7] 08/09/2024 03:55 PM 261 mg/dL N Blood chemistry[[id number]] Glucose [Mass/volume] in Serum or Plasma [2345-7] 08/09/2024 03:03 PM 214 mg/dL N Blood chemistry[[id number]] Glucose [Mass/volume] in Serum or Plasma [2345-7] 08/09/2024 12:21 PM 107 mg/dL N Blood chemistry[[id number]] Glucose [Mass/volume] in Serum or Plasma [2345-7] 08/09/2024 08:58 AM 271 mg/dL N COVID-19 Test Viral Antigen null flavor [null] 08/08/2024 05:00 PM See note NEG COVID-19 Test Viral Antigen Blood chemistry[[id number]] Glucose [Mass/volume] in Serum or Plasma [2345-7] 08/08/2024 03:47 PM 266 mg/dL N Blood chemistry[[id number]] Glucose [Mass/volume] in Serum or Plasma [2345-7] 08/08/2024 12:07 PM 174 mg/dL N Blood chemistry[[id number]] Glucose [Mass/volume] in Serum or Plasma [2345-7] 08/08/2024 11:58 AM 242 mg/dL N Blood chemistry[[id number]] Glucose [Mass/volume] in Serum or Plasma [2345-7] 08/08/2024 08:54 AM 215 mg/dL N Blood chemistry[[id number]] Glucose [Mass/volume] in Serum or Plasma [2345-7] 08/08/2024 06:06 AM 100 mg/dL N Blood chemistry[[id number]] Glucose [Mass/volume] in Serum or Plasma [2345-7] 08/07/2024 04:32 PM 190 mg/dL N Blood chemistry[[id number]] Glucose [Mass/volume] in Serum or Plasma [2345-7] 08/07/2024 01:25 PM 178 mg/dL N Blood chemistry[[id number]] Glucose [Mass/volume] in Serum or Plasma [2345-7] 08/07/2024 09:22 AM 300 mg/dL N Blood chemistry[[id number]] Glucose [Mass/volume] in Serum or Plasma [2345-7] 08/06/2024 04:39 PM 277 mg/dL N Blood chemistry[[id number]] Glucose [Mass/volume] in Serum or Plasma [2345-7] 08/06/2024 04:15 PM 340 mg/dL N Blood chemistry[[id number]] Glucose [Mass/volume] in Serum or Plasma [2345-7] 08/06/2024 12:41 PM 175 mg/dL N Blood chemistry[[id number]] Glucose [Mass/volume] in Serum or Plasma [2345-7] 08/06/2024 09:28 AM 197 mg/dL N Blood chemistry[[id number]] Glucose [Mass/volume] in Serum or Plasma [2345-7] 08/05/2024 03:48 PM 275 mg/dL N Blood chemistry[[id number]] Glucose [Mass/volume] in Serum or Plasma [2345-7] 08/05/2024 01:58 PM 201 mg/dL N Blood chemistry[[id number]] Glucose [Mass/volume] in Serum or Plasma [2345-7] 08/05/2024 01:09 PM 145 mg/dL N Blood chemistry[[id number]] Glucose [Mass/volume] in Serum or Plasma [2345-7] 08/05/2024 09:15 AM 248 mg/dL N Blood chemistry[[id number]] Glucose [Mass/volume] in Serum or Plasma [2345-7] 08/04/2024 04:13 PM 169 mg/dL N Blood chemistry[[id number]] Glucose [Mass/volume] in Serum or Plasma [2345-7] 08/04/2024 12:14 PM 161 mg/dL N Blood chemistry[[id number]] Glucose [Mass/volume] in Serum or Plasma [2345-7] 08/04/2024 12:10 PM 175 mg/dL N Blood chemistry[[id number]] Glucose [Mass/volume] in Serum or Plasma [2345-7] 08/04/2024 08:21 AM 227 mg/dL N Blood chemistry[[id number]] Glucose [Mass/volume] in Serum or Plasma [2345-7] 08/03/2024 05:34 PM 279 mg/dL N Blood chemistry[[id number]] Glucose [Mass/volume] in Serum or Plasma [2345-7] 08/03/2024 03:38 PM 82 mg/dL N Blood chemistry[[id number]] Glucose [Mass/volume] in Serum or Plasma [2345-7] 08/03/2024 01:09 PM 243 mg/dL N Blood chemistry[[id number]] Glucose [Mass/volume] in Serum or Plasma [2345-7] 08/03/2024 10:41 AM 238 mg/dL N Blood chemistry[[id number]] Glucose [Mass/volume] in Serum or Plasma [2345-7] 08/02/2024 04:22 PM 280 mg/dL N Blood chemistry[[id number]] Glucose [Mass/volume] in Serum or Plasma [2345-7] 08/02/2024 01:27 PM 267 mg/dL N Blood chemistry[[id number]] Glucose [Mass/volume] in Serum or Plasma [2345-7] 08/02/2024 12:10 PM 172 mg/dL N Blood chemistry[[id number]] Glucose [Mass/volume] in Serum or Plasma [2345-7] 08/02/2024 09:28 AM 257 mg/dL N COVID-19 Test Viral Antigen null flavor [null] 08/01/2024 05:00 PM See note NEG COVID-19 Test Viral Antigen Blood chemistry[[id number]] Glucose [Mass/volume] in Serum or Plasma [2345-7] 08/01/2024 04:14 PM 248 mg/dL N Blood chemistry[[id number]] Glucose [Mass/volume] in Serum or Plasma [2345-7] 08/01/2024 01:58 PM 104 mg/dL N Blood chemistry[[id number]] Glucose [Mass/volume] in Serum or Plasma [2345-7] 08/01/2024 11:51 AM 251 mg/dL N Blood chemistry[[id number]] Glucose [Mass/volume] in Serum or Plasma [2345-7] 08/01/2024 11:40 AM 104 mg/dL N Blood chemistry[[id number]] Glucose [Mass/volume] in Serum or Plasma [2345-7] 08/01/2024 08:52 AM 275 mg/dL N Blood chemistry[[id number]] Glucose [Mass/volume] in Serum or Plasma [2345-7] 07/31/2024 04:45 PM 361 mg/dL N Blood chemistry[[id number]] Glucose [Mass/volume] in Serum or Plasma [2345-7] 07/31/2024 03:30 PM 211 mg/dL N Blood chemistry[[id number]] Glucose [Mass/volume] in Serum or Plasma [2345-7] 07/31/2024 02:42 PM 185 mg/dL N Blood chemistry[[id number]] Glucose [Mass/volume] in Serum or Plasma [2345-7] 07/31/2024 09:28 AM 206 mg/dL N Blood chemistry[[id number]] Glucose [Mass/volume] in Serum or Plasma [2345-7] 07/30/2024 04:22 PM 287 mg/dL N Blood chemistry[[id number]] Glucose [Mass/volume] in Serum or Plasma [2345-7] 07/30/2024 03:50 PM 290 mg/dL N Blood chemistry[[id number]] Glucose [Mass/volume] in Serum or Plasma [2345-7] 07/30/2024 01:42 PM 148 mg/dL N Blood chemistry[[id number]] Glucose [Mass/volume] in Serum or Plasma [2345-7] 07/30/2024 10:43 AM 166 mg/dL N Blood chemistry[[id number]] Glucose [Mass/volume] in Serum or Plasma [2345-7] 07/29/2024 04:12 PM 141 mg/dL N Blood chemistry[[id number]] Glucose [Mass/volume] in Serum or Plasma [2345-7] 07/29/2024 03:58 PM 114 mg/dL N Blood chemistry[[id number]] Glucose [Mass/volume] in Serum or Plasma [2345-7] 07/29/2024 11:47 AM 139 mg/dL N Blood chemistry[[id number]] Glucose [Mass/volume] in Serum or Plasma [2345-7] 07/29/2024 09:24 AM 284 mg/dL N Blood chemistry[[id number]] Glucose [Mass/volume] in Serum or Plasma [2345-7] 07/28/2024 03:40 PM 151 mg/dL N Blood chemistry[[id number]] Glucose [Mass/volume] in Serum or Plasma [2345-7] 07/28/2024 03:01 PM 167 mg/dL N Blood chemistry[[id number]] Glucose [Mass/volume] in Serum or Plasma [2345-7] 07/28/2024 12:24 PM 82 mg/dL N Blood chemistry[[id number]] Glucose [Mass/volume] in Serum or Plasma [2345-7] 07/28/2024 09:06 AM 430 mg/dL N Blood chemistry[[id number]] Glucose [Mass/volume] in Serum or Plasma [2345-7] 07/27/2024 04:29 PM 218 mg/dL N Blood chemistry[[id number]] Glucose [Mass/volume] in Serum or Plasma [2345-7] 07/27/2024 01:31 PM 183 mg/dL N Blood chemistry[[id number]] Glucose [Mass/volume] in Serum or Plasma [2345-7] 07/27/2024 11:23 AM 177 mg/dL N Blood chemistry[[id number]] Glucose [Mass/volume] in Serum or Plasma [2345-7] 07/27/2024 09:04 AM 237 mg/dL N Blood chemistry[[id number]] Glucose [Mass/volume] in Serum or Plasma [2345-7] 07/26/2024 04:25 PM 121 mg/dL N Blood chemistry[[id number]] Glucose [Mass/volume] in Serum or Plasma [2345-7] 07/26/2024 02:09 PM 250 mg/dL N Blood chemistry[[id number]] Glucose [Mass/volume] in Serum or Plasma [2345-7] 07/26/2024 12:10 PM 219 mg/dL N Blood chemistry[[id number]] Glucose [Mass/volume] in Serum or Plasma [2345-7] 07/26/2024 09:38 AM 273 mg/dL N COVID-19 Test Viral Antigen null flavor [null] 07/25/2024 05:00 PM See note NEG COVID-19 Test Viral Antigen Blood chemistry[[id number]] Glucose [Mass/volume] in Serum or Plasma [2345-7] 07/25/2024 03:42 PM 360 mg/dL N Blood chemistry[[id number]] Glucose [Mass/volume] in Serum or Plasma [2345-7] 07/25/2024 12:10 PM 194 mg/dL N Blood chemistry[[id number]] Glucose [Mass/volume] in Serum or Plasma [2345-7] 07/25/2024 11:57 AM 258 mg/dL N Blood chemistry[[id number]] Glucose [Mass/volume] in Serum or Plasma [2345-7] 07/25/2024 09:18 AM 120 mg/dL N Blood chemistry[[id number]] Glucose [Mass/volume] in Serum or Plasma [2345-7] 07/24/2024 04:37 PM 286 mg/dL N Blood chemistry[[id number]] Glucose [Mass/volume] in Serum or Plasma [2345-7] 07/24/2024 04:17 PM 335 mg/dL N Blood chemistry[[id number]] Glucose [Mass/volume] in Serum or Plasma [2345-7] 07/24/2024 12:59 PM 272 mg/dL N Blood chemistry[[id number]] Glucose [Mass/volume] in Serum or Plasma [2345-7] 07/24/2024 09:09 AM 190 mg/dL N Blood chemistry[[id number]] Glucose [Mass/volume] in Serum or Plasma [2345-7] 07/23/2024 04:33 PM 416 mg/dL N Blood chemistry[[id number]] Glucose [Mass/volume] in Serum or Plasma [2345-7] 07/23/2024 03:53 PM 190 mg/dL N Blood chemistry[[id number]] Glucose [Mass/volume] in Serum or Plasma [2345-7] 07/23/2024 02:07 PM 230 mg/dL N Blood chemistry[[id number]] Glucose [Mass/volume] in Serum or Plasma [2345-7] 07/23/2024 09:01 AM 341 mg/dL N Blood chemistry[[id number]] Glucose [Mass/volume] in Serum or Plasma [2345-7] 07/22/2024 04:21 PM 282 mg/dL N Blood chemistry[[id number]] Glucose [Mass/volume] in Serum or Plasma [2345-7] 07/22/2024 04:15 PM 242 mg/dL N Blood chemistry[[id number]] Glucose [Mass/volume] in Serum or Plasma [2345-7] 07/22/2024 12:23 PM 205 mg/dL N Blood chemistry[[id number]] Glucose [Mass/volume] in Serum or Plasma [2345-7] 07/22/2024 09:30 AM 287 mg/dL N Blood chemistry[[id number]] Glucose [Mass/volume] in Serum or Plasma [2345-7] 07/21/2024 03:46 PM 369 mg/dL N Blood chemistry[[id number]] Glucose [Mass/volume] in Serum or Plasma [2345-7] 07/21/2024 12:38 PM 280 mg/dL N Blood chemistry[[id number]] Glucose [Mass/volume] in Serum or Plasma [2345-7] 07/21/2024 12:11 PM 126 mg/dL N Blood chemistry[[id number]] Glucose [Mass/volume] in Serum or Plasma [2345-7] 07/21/2024 09:21 AM 265 mg/dL N Allergies, adverse reactions, alerts Substance Reaction Date Status Type ampicillin 02/03/2022 Non Drug mushroom 06/10/2023 Non Drug Immunizations Vaccine Route Date Status COVID-19 Vaccine Unassigned Route of Administration Completed COVID-19 Vaccine Unassigned Route of Administration Completed COVID-19 Vaccine Unassigned Route of Administration Completed COVID-19 Vaccine Unassigned Route of Administration Completed COVID-19 Vaccine Unassigned Route of Administration Completed Influenza Vaccine Unassigned Route of Administration 1 Completed Influenza Vaccine Unassigned Route of Administration 1 Completed Influenza Vaccine Unassigned Route of Administration 1 Completed Pneumococcal Vaccine Unassigned Route of Administratio n 07/23/2023 Refused Pneumococcal Vaccine Unassigned Route of Administratio n 08/01/2022 Refused RSV Vaccine Unassigned Route of Administration 2022 Completed COVID-19 Vaccine Unassigned Route of Administration Refused Medications Medication Instructions Route Dosage Frequency Start Date Stop Date Indications Status aspirin 81 mg tablet,chewabl e (aspirin) 1 tab, oral, Once A Day, clinical indication: clotting oral 1.0 1.0 d 2023 Active Calmoseptine (menthol-zinc oxide) 0.44-20.6 % ointment (Calmoseptine (menthol-zinc oxide)) as directed, topical, Every Shift, cleans area and apply q shift to sacrum area for preventative topical 1.0 8.0 h 2023 Active carbidopa-levo dopa 25-100 mg tablet (carbidopa-lev odopa) 2 tabs, oral, Three Times A Day, give 2 tabs at 8am, 12pm, and at 4pm, per Dr. Luisa griffith indication: Parkinson's oral 1.0 8.0 h 2023 Active carbidopa-levo dopa 25-100 mg tablet (carbidopa-lev odopa) 1 tab, oral, At Bedtime, Per Dr. Javed oral 1.0 2023 Parkinson's disease with dyskinesia, without mention of fluctuations Active Celexa (citalopram) 10 mg tablet (Celexa (citalopram)) 1, oral, Once A Day, clinical indication: depression oral 1.0 1.0 d 2022 Active cholecalcifero l (vitamin D3) 125 mcg (5,000 unit) tablet (cholecalcifer ol (vitamin D3)) 1 tab, oral, Once A Day, clinical indication: supplement oral 1.0 1.0 d 2023 Active Claritin (loratadine) 10 mg tablet (Claritin (loratadine)) 1 tab, oral, Once A Day oral 1.0 1.0 d 2022 Active cyanocobalamin (vitamin B-12) 1,000 mcg tablet (cyanocobalami n (vitamin B-12)) 1, oral, Once A Day oral 1.0 1.0 d 2022 Active Dulcolax (bisacodyl) (bisacodyl) 10 mg suppository (Dulcolax (bisacodyl) (bisacodyl)) 1 suppository, rectal, Once A Day - PRN, Give rectally if can't take p/o, if no results from [facility] rectal 1.0 1.0 d 2021 Active Dulcolax (bisacodyl) (bisacodyl) 5 mg tablet,delayed release (DR/EC) (Dulcolax (bisacodyl) (bisacodyl)) 2 tabs/10mg, oral, Once A Day - PRN, Give if no results from [facility] oral 1.0 1.0 d 2021 Active Fleet Enema (sodium phosphates) 19-7 gram/118 mL enema (Fleet Enema (sodium phosphates)) 1 application, rectal, Once A Day - PRN, Give fleets if no results from [facility] and Dulcolax rectal 1.0 1.0 d 2021 Active folic acid 1 mg tablet (folic acid) 1, oral, Twice A Day oral 1.0 12.0 h 2022 Active furosemide 40 mg tablet (furosemide) 1, oral, Once A Day - PRN oral 1.0 1.0 d 2022 Active furosemide 40 mg tablet (furosemide) 1 tab, oral, Twice A Day oral 1.0 12.0 h 2022 Active gabapentin 600 mg tablet (gabapentin) 1 tab, oral, Twice A Day, clinical indication: neuropathy oral 1.0 12.0 h 2023 Active gabapentin 800 mg tablet (gabapentin) 1 tab, oral, Once A Day, clinical indication: neuropathy oral 1.0 1.0 d 2023 Active Humalog KwikPen Insulin (insulin lispro) 100 unit/mL insulin pen (Humalog KwikPen Insulin (insulin lispro)) Per Sliding Scale, subcutaneous, With Meals, If Blood Sugar is less than 70, call MD.If Blood Sugar is 150 to 200, give 0 Units.If Blood Sugar is 201 to 250, give 2 Units.If Blood Sugar is 251 to 300, give 4 Units.If Blood Sugar is 301 to 350, give 6 Units.If Blood Sugar is 351 to 400, give 8 Units.If Blood Sugar is greater than 400, give 8 Units.If Blood Sugar is greater than 400, call MD., Call PCP is BS is <60 and >400 if symptomatic or 3 consecutive reading's over 400 subcutan eous 1.0 2023 Active Humalog U-100 Insulin (insulin lispro) 100 unit/mL cartridge (Humalog U-100 Insulin (insulin lispro)) 5 units with meals, subcutaneous, With Meals subcutan eous 1.0 12/21 Active Milk of Magnesia (magnesium hydroxide) 400 mg/5 mL suspension (Milk of Magnesia (magnesium hydroxide)) 30 ml, oral, Once A Day - PRN, if no BM in 3 daysDO NOT GIVE TO RENAL PATIENTS--GO TO DULCOLAX ORDERS oral 1.0 1.0 d 2021 Active nystatin 100,000 unit/gram powder (nystatin) as directed, topical, As Needed, Cleanse under abdominal folds and R breast with NS, dry thoroughly, apply nystatin powder, and apply wicking cloth. topical 1.0 1.0 d 2022 Active oxycodone 10 mg tablet (oxycodone) 1 tab, oral, Every 8 Hours - PRN oral 1.0 8.0 h 2023 Active potassium chloride 20 mEq tablet extended release (potassium chloride) 2 tabs, oral, Once A Day oral 1.0 1.0 d 2022 Active promethazine 25 mg tablet (promethazine) 1 tab, oral, 4 Times Per Day - PRN, Administer 1 tab Q6H PRN for nausea and vomiting oral 1.0 4.0 d 2023 Active Protonix (pantoprazole) 40 mg tablet,delayed release (DR/EC) (Protonix (pantoprazole) ) 1, oral, Twice A Day oral 1.0 12.0 h 2023 Gastro-esopha geal reflux disease without esophagitis Active tizanidine 4 mg capsule (tizanidine) 1, oral, Twice A Day - PRN, Clinical indication: Spasm oral 1.0 12.0 h 2023 Active Tresiba FlexTouch U-100 (insulin degludec) 100 unit/mL (3 mL) insulin pen (Tresiba FlexTouch U-100 (insulin degludec)) 35 units, subcutaneous, At Bedtime subcutan eous 1.0 2022 Type 2 diabetes mellitus with diabetic neuropathy, unspecified Active Trulicity (dulaglutide) 3 mg/0.5 mL pen injector (Trulicity (dulaglutide)) 1, subcutaneous, Once A Day on Thu subcutan eous 1.0 1.0 d 2023 Type 2 diabetes mellitus with diabetic chronic kidney disease Active Tylenol (acetaminophen ) 325 mg tablet (Tylenol (acetaminophen )) 2 tabs/650mg, oral, Every 6 Hours - PRN, as needed for PRN pain/increased tempMay give rectally if necessary oral 1.0 6.0 h 2021 Active hydrocodone-ac etaminophen 5-325 mg tablet (hydrocodone-a cetaminophen) 1-2 tabs, oral, Every 6 Hours - PRN, 1-2 tabs q 6 hours as needed for pain oral 1.0 6.0 h 10/09 Active diclofenac sodium 1 % gel (diclofenac sodium) 1 gram, topical, Four Times A Day - PRN, Clinical indication pain topical 1.0 6.0 h 2023 Active atorvastatin 10 mg tablet (atorvastatin) 1 tab, oral, Once A Day oral 1.0 1.0 d 12/13 Active atorvastatin 10 mg tablet (atorvastatin) 1 tab, oral, Once A Day, Administer 1 tab po at 7pm (HS) per PCP oral 1.0 1.0 d 2024 Active Humalog U-100 Insulin (insulin lispro) 100 unit/mL cartridge (Humalog U-100 Insulin (insulin lispro)) 8 units with meals, subcutaneous, With Meals subcutan eous 1.0 2024 Active ceftriaxone 1 gram recon soln (ceftriaxone) 1, intramuscular, Once A Day, administer IM intramus cular 1.0 1.0 d 02/26 Active MediHoney (honey) (honey) 80 % gel (MediHoney (honey) (honey)) 1 application, topical, Twice A Day, Coccyx: cleanse area with NS and gauze, apply medi-honey to wound bed ONLY, cover with foam and op-site. topical 1.0 12.0 h 2024 Active Ativan (lorazepam) 0.5 mg tablet (Ativan (lorazepam)) 1, oral, At Bedtime - PRN, Clinical Indication: Restlessness oral 1.0 03/22 Active acetaminophen 325 mg tablet (acetaminophen ) 2 tabs (650mg), oral, Every 6 Hours - PRN, for pain or fever oral 1.0 6.0 h 2024 Active aspirin 81 mg tablet,chewabl e (aspirin) 1 tab, oral, Once A Day oral 1.0 1.0 d 2024 Active atorvastatin 10 mg tablet (atorvastatin) 1 tab, oral, At Bedtime oral 1.0 2024 Active Calmoseptine (menthol-zinc oxide) 0.44-20.6 % ointment (Calmoseptine (menthol-zinc oxide)) 1 application, topical, Every Shift, to buttocks for prevention topical 1.0 8.0 h 08/16 Active carbidopa-levo dopa 25-100 mg tablet (carbidopa-lev odopa) 2 tabs (50-200mg), oral, Three Times A Day, at 8am, 12pm, 4pm oral 1.0 8.0 h 2024 Parkinson's disease with dyskinesia, without mention of fluctuations Active cholecalcifero l (vitamin D3) 25 mcg (1,000 unit) tablet (cholecalcifer ol (vitamin D3)) 5 tabs (5000units), oral, Once A Day oral 1.0 1.0 d 2024 Active citalopram 10 mg tablet (citalopram) 1 tab, oral, Once A Day oral 1.0 1.0 d 2024 Major depressive disorder, recurrent, mild Active cyanocobalamin (vitamin B-12) 1,000 mcg tablet (cyanocobalami n (vitamin B-12)) 1 tab, oral, Once A Day oral 1.0 1.0 d 2024 Active diclofenac sodium 1 % gel (diclofenac sodium) 1 gram, topical, Three Times A Day - PRN, Apply 1 gram to bony areas 3x's daily prn pain topical 1.0 8.0 h 2024 Active gabapentin 800 mg tablet (gabapentin) 1 tab, oral, Once A Day, at 2pm oral 1.0 1.0 d 2024 Active gabapentin 600 mg tablet (gabapentin) 1 tab, oral, Twice A Day oral 1.0 12.0 h 2024 Active insulin lispro 100 unit/mL insulin pen (insulin lispro) Per Sliding Scale, subcutaneous, With Meals, If [...] 3 consecutive times or symptomatic call md gutierrez eous 1.0 2024 Active loratadine 10 mg tablet (loratadine) 1 tab, oral, Once A Day oral 1.0 1.0 d 2024 Active mupirocin 2 % ointment (mupirocin) 1 application, topical, Three Times A Day, apply to naval until redness resolved topical 1.0 8.0 h 08/16 Active nystatin 100,000 unit/gram powder (nystatin) 1 application, topical, Once A Day - PRN, Cleanse under abdominal folds and R breast with NS, dry thoroughly, apply nystatin powder, and apply wicking cloth. topical 1.0 1.0 d 2024 Active omeprazole 20 mg capsule,delaye d release(DR/EC) (omeprazole) 1 cap, oral, Twice A Day, ti pantoprazole oral 1.0 12.0 h 2024 Active oxycodone 10 mg tablet (oxycodone) 1 tab, oral, Every 8 Hours - PRN, for pain, exempt R52 oral 1.0 8.0 h 07/26 Active promethazine 25 mg tablet (promethazine) 1 tab, oral, Every 6 Hours - PRN, for n/v oral 1.0 6.0 h 2024 Active spironolactone 50 mg tablet (spironolacton e) 1 tab, oral, Once A Day oral 1.0 1.0 d 2024 Active tizanidine 4 mg tablet (tizanidine) 1 tab, oral, Once A Day - PRN, for muscle spasms oral 1.0 1.0 d 08/02 Active Tresiba FlexTouch U-100 (insulin degludec) 100 unit/mL (3 mL) insulin pen (Tresiba FlexTouch U-100 (insulin degludec)) 30 units, subcutaneous, At Bedtime subcutan eous 1.0 2024 Active Trulicity (dulaglutide) 3 mg/0.5 mL pen injector (Trulicity (dulaglutide)) 3mg (0.5mL), subcutaneous, Once A Day on Thu subcutan eous 1.0 1.0 d 2024 Active clindamycin HCl 300 mg capsule (clindamycin HCl) 1, oral, Three Times A Day oral 1.0 8.0 h 07/12 Active insulin lispro 100 unit/mL insulin pen (insulin lispro) Per Sliding Scale, subcutaneous, With Meals, If [...] 3 consecutive times or symptomatic call md subcutan eous 1.0 06/21 Active Tresiba FlexTouch U-100 (insulin degludec) 100 unit/mL (3 mL) insulin pen (Tresiba FlexTouch U-100 (insulin degludec)) 40 units, subcutaneous, At Bedtime subcutan eous 1.0 06/21 Active doxycycline hyclate 100 mg tablet (doxycycline hyclate) 1, oral, Twice A Day oral 1.0 12.0 h 07/29 Active oxycodone 10 mg tablet (oxycodone) 1 tab, oral, Every 8 Hours - PRN, for pain, exempt R52 oral 1.0 8.0 h 08/13 Active MediHoney (honey) (honey) 80 % gel (MediHoney (honey) (honey)) 1 application, topical, Every Shift, Coccyx: Cleanse area with NS and gauze, apply small amount of medi-honey to wound bed ONLY, and cover with foam. DO NOT get medi-homey on good skin this WILL cause breakdown. topical 1.0 8.0 h 08/13 Active tizanidine 4 mg tablet (tizanidine) 1 tab, oral, Three Times A Day - PRN, for muscle spasms oral 1.0 8.0 h 2024 Active heparin lock flush (porcine) 100 unit/mL solution (heparin lock flush (porcine)) 3 ml, intravenous, Twice A Day, flush before and after use after the normal saline flush CHANGE TO CORRECT FREQ AND TIMES TO MIRROR IV MEDS intraven ous 1.0 12.0 h 08/09 Active meropenem 1 gram recon soln (meropenem) 1 gram, intravenous, Every 8 Hours, 1 gram q 8 hours x 5 days via IV intraven ous 1.0 8.0 h 08/09 Active Normal Saline Flush (sodium chloride 0.9 %) - syringe (Normal Saline Flush (sodium chloride 0.9 %)) 3 ml, injection, Every Shift 1.0 8.0 h 08/09 Active Normal Saline Flush (sodium chloride 0.9 %) - syringe (Normal Saline Flush (sodium chloride 0.9 %)) 3 ml, injection, As Needed, Flush before and after use 1.0 1.0 d 08/09 Active oxycodone 10 mg tablet (oxycodone) 1 tab, oral, Every 8 Hours - PRN, for pain, exempt R52 oral 1.0 8.0 h 08/27 Active Triad Wound Dressing (wound dressings) - paste (Triad Wound Dressing (wound dressings)) sacrum, topical, Every Shift, Apply small amount to buttock q shift and brayan topical 1.0 8.0 h 08/21 Active oxycodone 5 mg tablet, oral only (oxycodone) 2, oral, Every 8 Hours, Ekit use qty 18 oral 1.0 8.0 h 07/27 Active oxycodone 5 mg tablet (oxycodone) 2, oral, Every 8 Hours, EKIT qty 18 oral 1.0 8.0 h 08/18 Active Calmoseptine (menthol-zinc oxide) 0.44-20.6 % ointment (Calmoseptine (menthol-zinc oxide)) 1 application, topical, Every Shift, to buttocks for prevention topical 1.0 8.0 h 2024 Active oxycodone 10 mg tablet (oxycodone) 1 tab, oral, Every 8 Hours - PRN, for pain, exempt R52 oral 1.0 8.0 h 2024 Active Dulcolax (bisacodyl) (bisacodyl) 10 mg suppository (Dulcolax (bisacodyl) (bisacodyl)) 1 suppository, rectal, Once A Day - PRN, Give rectally if can't take p/o, if no results from [facility] rectal 1.0 1.0 d 2024 Active Vital Signs Date Vital Result Comment 10/18/2024 10:35 AM Oxygen Saturation (71568-0) 96 % 10/17/2024 09:24 PM Oxygen Saturation (16237-5) 97 % 10/17/2024 06:27 AM Oxygen Saturation (63122-3) 93 % 10/16/2024 09:59 PM Oxygen Saturation (16445-3) 96 % 10/16/2024 08:39 AM Oxygen Saturation (96684-5) 97 % 10/15/2024 10:48 PM Oxygen Saturation (88334-7) 98 % 10/15/2024 09:10 AM Oxygen Saturation (59303-0) 96 % 10/14/2024 11:33 PM Oxygen Saturation (55557-0) 97 % 10/14/2024 07:18 AM Oxygen Saturation (56466-8) 98 % 10/13/2024 11:56 PM Oxygen Saturation (30408-8) 94 % 10/13/2024 10:55 AM Body Weight (36529-6) 208.4 [lb_av ] Body Mass Index (17578-0) 38.11 kg/m2 10/12/2024 10:23 AM Body Weight (23249-6) 209 [lb_av] Body Mass Index (22706-0) 38.22 kg/m2 10/12/2024 09:26 AM Temperature (8310-5) 97.8 [degF] Respiratory Rate (9279-1) 16 /min Heart Rate (8867-4) 80 /min Blood Pressure Systolic (8480-6) 132 mm[Hg] Blood Pressure Diastolic (8462-4) 78 mm[Hg] 10/11/2024 09:49 AM Body Weight (92634-6) 211.6 [lb_av ] Body Mass Index (36144-3) 38.7 kg/m2 10/10/2024 04:03 PM Body Weight (33585-1) 212.4 [lb_av ] Body Mass Index (35269-9) 38.84 kg/m2 10/09/2024 10:10 AM Body Weight (67538-4) 210.2 [lb_av ] Body Mass Index (43313-3) 38.44 kg/m2 10/05/2024 08:23 AM Temperature (8310-5) 98 [degF] Respiratory Rate (9279-1) 16 /min Heart Rate (8867-4) 68 /min Blood Pressure Systolic (8480-6) 123 mm[Hg] Blood Pressure Diastolic (8462-4) 66 mm[Hg] 09/28/2024 01:38 PM Body Weight (35064-7) 212.2 [lb_av ] Body Mass Index (17331-0) 38.81 kg/m2 09/28/2024 09:25 AM Temperature (8310-5) 97.2 [degF] Respiratory Rate (9279-1) 18 /min Heart Rate (8867-4) 74 /min Blood Pressure Systolic (8480-6) 140 mm[Hg] Blood Pressure Diastolic (8462-4) 82 mm[Hg] 09/21/2024 09:52 AM Temperature (8310-5) 97.5 [degF] Respiratory Rate (9279-1) 18 /min Heart Rate (8867-4) 76 /min Blood Pressure Systolic (8480-6) 131 mm[Hg] Blood Pressure Diastolic (8462-4) 64 mm[Hg] Body Weight (74950-7) 212.8 [lb_av] Body Mass Index (99701-0) 38.92 kg/m2 09/14/2024 11:26 AM Body Weight (61240-2) 204.8 [lb_av ] Body Mass Index (82451-3) 37.45 kg/m2 09/14/2024 10:51 AM Temperature (8310-5) 98 [degF] Respiratory Rate (9279-1) 16 /min Heart Rate (8867-4) 67 /min Blood Pressure Systolic (8480-6) 158 mm[Hg] Blood Pressure Diastolic (8462-4) 67 mm[Hg] 09/09/2024 11:38 AM Body Weight (87653-1) 204.2 [lb_av ] Body Mass Index (09292-8) 37.34 kg/m2 09/09/2024 12:10 AM Temperature (8310-5) 99.1 [degF] 09/08/2024 10:36 AM Temperature (8310-5) 98.6 [degF] 09/07/2024 10:55 PM Temperature (8310-5) 98.1 [degF] 09/07/2024 10:26 AM Body Weight (63957-6) 206.2 [lb_av ] Body Mass Index (51063-9) 37.71 kg/m2 09/07/2024 10:25 AM Respiratory Rate (9279-1) 17 /min Heart Rate (8867-4) 77 /min Blood Pressure Systolic (8480-6) 115 mm[Hg] Blood Pressure Diastolic (8462-4) 42 mm[Hg] 09/07/2024 10:24 AM Temperature (8310-5) 96.5 [degF] 08/31/2024 11:26 AM Body Weight (78129-5) 208.2 [lb_av ] Body Mass Index (64942-6) 38.08 kg/m2 08/31/2024 09:35 AM Temperature (8310-5) 98.3 [degF] Respiratory Rate (9279-1) 16 /min Heart Rate (8867-4) 68 /min Blood Pressure Systolic (8480-6) 122 mm[Hg] Blood Pressure Diastolic (8462-4) 70 mm[Hg] 08/24/2024 12:54 PM Body Weight (67790-0) 210.8 [lb_av ] Body Mass Index (00329-0) 38.55 kg/m2 08/24/2024 09:26 AM Respiratory Rate (9279-1) 16 /min Heart Rate (8867-4) 69 /min Blood Pressure Systolic (8480-6) 123 mm[Hg] Blood Pressure Diastolic (8462-4) 55 mm[Hg] 08/17/2024 10:34 AM Respiratory Rate (9279-1) 15 /min Heart Rate (8867-4) 68 /min Blood Pressure Systolic (8480-6) 116 mm[Hg] Blood Pressure Diastolic (8462-4) 71 mm[Hg] Body Weight (71704-0) 204.8 [lb_av] Body Mass Index (90866-4) 37.45 kg/m2 08/10/2024 02:44 PM Body Weight (71713-7) 200 [lb_av] Body Mass Index (57032-2) 36.58 kg/m2 08/10/2024 02:43 PM Respiratory Rate (9279-1) 16 /min Heart Rate (8867-4) 77 /min Blood Pressure Systolic (8480-6) 144 mm[Hg] Blood Pressure Diastolic (8462-4) 67 mm[Hg] 08/09/2024 07:39 AM Body Weight (17002-2) 200.6 [lb_av ] Body Mass Index (67053-5) 36.69 kg/m2 08/03/2024 11:22 AM Body Weight (07621-5) 196.8 [lb_av ] Body Mass Index (15377-7) 35.99 kg/m2 07/27/2024 09:46 AM Body Weight (24751-3) 197 [lb_av] Body Mass Index (91290-1) 36.03 kg/m2 02/03/2022 01:50 PM Body Height (8302-2) 62 [in_us] 10/19/2024 09:44 AM Temperature (8310-5) 97.4 [degF] Oxygen Saturation (58887-4) 94 % Respiratory Rate (9279-1) 16 /min Heart Rate (8867-4) 73 /min Blood Pressure Systolic (8480-6) 132 mm[Hg] Blood Pressure Diastolic (8462-4) 76 mm[Hg] Body Weight (58072-5) 209 [lb_av] Body Mass Index (35212-4) 38.22 kg/m2 10/19/2024 08:13 AM Oxygen Saturation (34960-0) 97 % 10/19/2024 08:12 AM Oxygen Saturation (89800-8) 97 % 10/19/2024 10:39 PM Oxygen Saturation (97802-7) 98 % 10/21/2024 11:27 AM Oxygen Saturation (98109-7) 97 % 10/20/2024 10:39 PM Oxygen Saturation (58316-4) 96 % 10/20/2024 08:52 AM Oxygen Saturation (10382-4) 97 % 10/22/2024 11:40 AM Oxygen Saturation (00021-5) 96 % 10/21/2024 11:27 PM Oxygen Saturation (90450-0) 96 % 10/23/2024 12:13 PM Oxygen Saturation (71581-6) 96 % 10/22/2024 10:25 PM Oxygen Saturation (07274-7) 96 % 10/23/2024 10:14 PM Oxygen Saturation (94078-3) 94 % 10/25/2024 07:36 AM Oxygen Saturation (27237-5) 94 % 10/24/2024 08:24 PM Oxygen Saturation (14991-4) 98 % 10/24/2024 08:47 AM Oxygen Saturation (97816-6) 94 % 10/26/2024 03:25 AM Oxygen Saturation (63616-7) 95 % 10/27/2024 07:16 AM Oxygen Saturation (22170-2) 94 % 10/26/2024 11:58 PM Oxygen Saturation (51170-2) 92 % 10/26/2024 01:45 PM Temperature (8310-5) 98.1 [degF] Oxygen Saturation (78228-6) 98 % Respiratory Rate (9279-1) 18 /min Heart Rate (8867-4) 69 /min Blood Pressure Systolic (8480-6) 130 mm[Hg] Blood Pressure Diastolic (8462-4) 63 mm[Hg] 10/26/2024 01:29 PM Oxygen Saturation (70386-3) 98 % Body Weight (03678-3) 209.6 [lb_av] Body Mass Index (33827-0) 38.33 kg/m2 10/27/2024 08:10 PM Oxygen Saturation (89595-0) 95 % 10/28/2024 07:27 AM Oxygen Saturation (17459-6) 96 % 10/29/2024 09:48 AM Oxygen Saturation (74102-3) 96 % 10/29/2024 12:30 AM Oxygen Saturation (09415-0) 95 % 10/29/2024 09:47 PM Oxygen Saturation (33263-8) 95 % 10/30/2024 10:24 PM Oxygen Saturation (31525-0) 96 % 10/30/2024 09:22 AM Oxygen Saturation (30364-4) 95 % 10/31/2024 07:41 AM Oxygen Saturation (01078-0) 97 % 11/01/2024 09:18 AM Oxygen Saturation (17115-6) 99 % 10/31/2024 08:03 PM Oxygen Saturation (23996-1) 96 % 11/02/2024 09:09 AM Body Weight (73839-7) 212.2 [lb_av ] Body Mass Index (53949-7) 38.81 kg/m2 11/02/2024 09:08 AM Temperature (8310-5) 97.9 [degF] Oxygen Saturation (74365-3) 95 % Respiratory Rate (9279-1) 18 /min Heart Rate (8867-4) 76 /min Blood Pressure Systolic (8480-6) 128 mm[Hg] Blood Pressure Diastolic (8462-4) 75 mm[Hg] 11/02/2024 07:15 AM Oxygen Saturation (90267-0) 95 % 11/02/2024 05:05 AM Oxygen Saturation (57428-3) 98 % 11/02/2024 10:19 PM Oxygen Saturation (70136-9) 94 % 11/03/2024 11:06 PM Oxygen Saturation (16722-0) 96 % 11/03/2024 08:41 AM Oxygen Saturation (19438-8) 95 % 11/04/2024 09:09 AM Oxygen Saturation (94678-5) 94 % 11/05/2024 09:27 AM Oxygen Saturation (80311-6) 99 % 11/04/2024 11:37 PM Oxygen Saturation (64285-7) 98 % 11/05/2024 09:57 PM Oxygen Saturation (87310-2) 97 % 11/06/2024 10:15 AM Oxygen Saturation (80647-4) 95 % 11/07/2024 11:26 AM Oxygen Saturation (66368-0) 95 % 11/06/2024 11:09 PM Oxygen Saturation (13428-4) 96 % 11/08/2024 07:00 AM Oxygen Saturation (17866-6) 97 % 11/07/2024 07:25 PM Oxygen Saturation (02191-3) 96 % 11/09/2024 10:02 AM Temperature (8310-5) 98.1 [degF] Respiratory Rate (9279-1) 18 /min Heart Rate (8867-4) 66 /min Blood Pressure Systolic (8480-6) 121 mm[Hg] Blood Pressure Diastolic (8462-4) 73 mm[Hg] Body Weight (71004-2) 211.6 [lb_av] Body Mass Index (43172-8) 38.7 kg/m2 11/09/2024 10:01 AM Oxygen Saturation (90127-4) 94 % 11/08/2024 11:32 PM Oxygen Saturation (97467-1) 92 % 11/10/2024 07:20 PM Oxygen Saturation (22152-7) 95 % 11/10/2024 07:05 AM Oxygen Saturation (16992-6) 98 % 11/10/2024 03:52 AM Oxygen Saturation (39871-1) 98 % 11/11/2024 07:01 AM Oxygen Saturation (58908-9) 97 % 11/12/2024 10:51 AM Oxygen Saturation (37646-5) 96 % 11/12/2024 12:56 AM Oxygen Saturation (13106-7) 96 % 11/12/2024 10:25 PM Oxygen Saturation (35084-6) 95 % 11/13/2024 10:29 PM Oxygen Saturation (65178-5) 96 % 11/13/2024 07:37 AM Oxygen Saturation (28158-0) 97 % 11/14/2024 09:18 AM Oxygen Saturation (95455-9) 95 % 11/14/2024 07:14 PM Oxygen Saturation (34947-7) 97 % 11/15/2024 09:48 AM Oxygen Saturation (78301-9) 97 % 11/15/2024 08:59 PM Oxygen Saturation (39060-8) 95 % 11/16/2024 09:01 AM Temperature (8310-5) 97.5 [degF] Oxygen Saturation (73238-3) 95 % Respiratory Rate (9279-1) 16 /min Heart Rate (8867-4) 61 /min Blood Pressure Systolic (8480-6) 126 mm[Hg] Blood Pressure Diastolic (8462-4) 67 mm[Hg] 11/17/2024 06:26 PM Oxygen Saturation (75004-4) 95 % 11/16/2024 09:52 PM Oxygen Saturation (25487-4) 99 % 11/17/2024 09:17 PM Oxygen Saturation (01680-9) 96 % 11/18/2024 08:21 AM Oxygen Saturation (83601-2) 94 % 11/18/2024 10:57 PM Oxygen Saturation (08535-9) 95 % 11/19/2024 10:59 AM Oxygen Saturation (70388-0) 94 % 11/19/2024 10:57 PM Oxygen Saturation (35382-3) 95 % 11/20/2024 10:09 PM Oxygen Saturation (61890-5) 94 % 11/20/2024 09:13 AM Oxygen Saturation (97555-4) 95 % 11/21/2024 07:48 AM Oxygen Saturation (50895-2) 94 % 11/22/2024 07:06 AM Oxygen Saturation (56879-5) 96 % 11/21/2024 08:04 PM Oxygen Saturation (51163-8) 97 % 11/23/2024 09:39 AM Temperature (8310-5) 98.2 [degF] Oxygen Saturation (76268-1) 93 % Respiratory Rate (9279-1) 16 /min Heart Rate (8867-4) 69 /min Blood Pressure Systolic (8480-6) 131 mm[Hg] Blood Pressure Diastolic (8462-4) 68 mm[Hg] 11/23/2024 08:44 AM Oxygen Saturation (01179-0) 93 % 11/23/2024 04:07 AM Oxygen Saturation (97055-5) 94 % 11/23/2024 07:44 PM Oxygen Saturation (77949-3) 96 % 11/24/2024 10:36 AM Oxygen Saturation (91025-9) 92 % 11/25/2024 08:26 AM Oxygen Saturation (93616-9) 96 % 11/24/2024 08:01 PM Oxygen Saturation (55084-4) 98 % 11/26/2024 10:19 PM Oxygen Saturation (87236-6) 95 % 11/26/2024 11:49 AM Oxygen Saturation (25923-2) 94 % 11/25/2024 11:45 PM Oxygen Saturation (53478-6) 95 % 11/27/2024 09:35 PM Oxygen Saturation (81624-5) 95 % 11/27/2024 03:23 PM Oxygen Saturation (45188-9) 93 % 11/28/2024 07:15 PM Oxygen Saturation (56583-5) 97 % 11/28/2024 09:38 AM Oxygen Saturation (53261-1) 98 % 11/29/2024 12:34 PM Oxygen Saturation (65697-0) 93 % 11/30/2024 09:49 AM Temperature (8310-5) 97.7 [degF] Oxygen Saturation (75107-5) 97 % Respiratory Rate (9279-1) 17 /min Heart Rate (8867-4) 101 /min Blood Pressure Systolic (8480-6) 105 mm[Hg] Blood Pressure Diastolic (8462-4) 49 mm[Hg] 11/30/2024 09:37 AM Oxygen Saturation (62766-6) 97 % 11/30/2024 02:48 AM Oxygen Saturation (48278-2) 97 % 12/01/2024 09:47 AM Oxygen Saturation (91806-6) 98 % 11/30/2024 07:14 PM Oxygen Saturation (35302-9) 95 % 12/02/2024 09:07 AM Oxygen Saturation (99384-0) 96 % 12/01/2024 09:45 PM Oxygen Saturation (17397-5) 96 % 12/02/2024 08:40 PM Oxygen Saturation (47129-2) 95 % 12/03/2024 08:48 AM Oxygen Saturation (31450-1) 94 % 12/04/2024 12:39 AM Oxygen Saturation (27995-3) 96 % 12/04/2024 09:02 AM Oxygen Saturation (79653-2) 95 % 12/05/2024 12:07 PM Oxygen Saturation (16614-9) 96 % 12/04/2024 11:23 PM Oxygen Saturation (04248-2) 99 % 12/05/2024 07:34 PM Oxygen Saturation (67770-6) 95 % 12/06/2024 09:19 AM Oxygen Saturation (16581-4) 97 % 12/06/2024 08:52 PM Oxygen Saturation (61171-7) 94 % 12/08/2024 05:00 PM Oxygen Saturation (28681-0) 94 % 12/08/2024 04:15 PM Oxygen Saturation (11812-3) 94 % 12/07/2024 09:39 PM Oxygen Saturation (19341-8) 95 % 12/07/2024 06:44 PM Temperature (8310-5) 97.3 [degF] Oxygen Saturation (48847-6) 98 % Respiratory Rate (9279-1) 18 /min Heart Rate (8867-4) 73 /min Blood Pressure Systolic (8480-6) 144 mm[Hg] Blood Pressure Diastolic (8462-4) 76 mm[Hg] 12/07/2024 06:42 PM Oxygen Saturation (32701-0) 98 % 12/09/2024 03:49 PM Oxygen Saturation (32797-3) 95 % 12/08/2024 07:08 PM Oxygen Saturation (34136-8) 95 % 12/10/2024 01:27 PM Body Weight (23850-3) 219.4 [lb_av ] Body Mass Index (14053-5) 40.12 kg/m2 12/09/2024 11:32 PM Oxygen Saturation (60173-5) 93 % 12/10/2024 07:56 AM Oxygen Saturation (68881-9) 99 % 12/10/2024 11:18 PM Oxygen Saturation (26249-9) 97 % 12/11/2024 01:46 PM Oxygen Saturation (41974-6) 94 % 12/11/2024 08:13 PM Oxygen Saturation (12752-7) 95 % 12/12/2024 07:59 AM Oxygen Saturation (01617-9) 94 % 12/12/2024 07:20 PM Oxygen Saturation (17197-3) 96 % 12/12/2024 11:29 AM Body Weight (57964-0) 220.6 [lb_av ] Body Mass Index (18636-7) 40.34 kg/m2 12/13/2024 04:29 PM Body Weight (52051-6) 220.4 [lb_av ] Body Mass Index (28061-1) 40.31 kg/m2 12/13/2024 04:12 PM Oxygen Saturation (22278-7) 93 % 12/13/2024 08:48 PM Oxygen Saturation (19440-3) 93 % 12/14/2024 10:52 AM Body Weight (99385-6) 220.2 [lb_av ] Body Mass Index (01738-6) 40.27 kg/m2 12/14/2024 09:01 AM Oxygen Saturation (15725-8) 95 % 12/14/2024 09:02 AM Temperature (8310-5) 97.4 [degF] Respiratory Rate (9279-1) 18 /min Heart Rate (8867-4) 72 /min Blood Pressure Systolic (8480-6) 146 mm[Hg] Blood Pressure Diastolic (8462-4) 72 mm[Hg] 12/15/2024 03:12 PM Oxygen Saturation (22032-6) 96 % Body Weight (53609-4) 221.4 [lb_av] Body Mass Index (53736-7) 40.49 kg/m2 12/14/2024 08:25 PM Oxygen Saturation (36788-7) 96 % 12/16/2024 08:08 AM Oxygen Saturation (65856-2) 93 % 12/15/2024 10:05 PM Oxygen Saturation (09989-1) 95 % 12/17/2024 11:16 AM Oxygen Saturation (07275-6) 97 % 12/16/2024 06:59 PM Oxygen Saturation (56496-2) 94 % 12/17/2024 08:35 PM Oxygen Saturation (40491-4) 95 % 12/18/2024 08:59 PM Oxygen Saturation (01262-4) 95 % 12/18/2024 08:44 AM Oxygen Saturation (73156-5) 92 % 12/19/2024 08:44 AM Oxygen Saturation (02231-0) 97 % 12/20/2024 09:31 AM Oxygen Saturation (54328-9) 94 % 12/19/2024 07:17 PM Oxygen Saturation (35023-4) 94 % 12/21/2024 10:56 PM Oxygen Saturation (02224-2) 94 % 12/21/2024 12:13 PM Temperature (8310-5) 97.5 [degF] Oxygen Saturation (51486-4) 95 % Respiratory Rate (9279-1) 18 /min Heart Rate (8867-4) 66 /min Blood Pressure Systolic (8480-6) 123 mm[Hg] Blood Pressure Diastolic (8462-4) 65 mm[Hg] 12/21/2024 01:27 AM Oxygen Saturation (57556-9) 92 % 12/22/2024 07:43 PM Oxygen Saturation (95042-7) 94 % 12/22/2024 12:01 PM Oxygen Saturation (72946-2) 94 % 12/23/2024 07:50 PM Oxygen Saturation (02340-3) 98 % 12/23/2024 05:05 PM Oxygen Saturation (75747-1) 94 % 12/24/2024 07:26 PM Oxygen Saturation (21365-9) 98 % 12/24/2024 03:07 PM Oxygen Saturation (44130-7) 97 % 12/25/2024 07:34 PM Oxygen Saturation (02524-1) 100 % 12/25/2024 04:11 PM Oxygen Saturation (86082-6) 96 % 12/26/2024 08:32 PM Oxygen Saturation (77820-4) 94 % 12/26/2024 12:31 PM Oxygen Saturation (07608-5) 95 % 12/27/2024 11:13 AM Oxygen Saturation (60110-8) 95 % 12/28/2024 10:13 AM Temperature (8310-5) 97.6 [degF] Oxygen Saturation (57218-7) 95 % Respiratory Rate (9279-1) 18 /min Heart Rate (8867-4) 77 /min Blood Pressure Systolic (8480-6) 171 mm[Hg] Blood Pressure Diastolic (8462-4) 85 mm[Hg] 12/28/2024 10:12 AM Oxygen Saturation (52844-8) 95 % 12/28/2024 01:00 AM Oxygen Saturation (38229-6) 95 % 12/27/2024 04:54 PM Oxygen Saturation (63966-9) 96 % 12/29/2024 11:00 AM Oxygen Saturation (03664-0) 96 % 12/28/2024 10:01 PM Oxygen Saturation (75717-5) 98 % 12/30/2024 07:59 AM Oxygen Saturation (41351-4) 93 % 12/30/2024 12:32 AM Oxygen Saturation (84052-1) 95 % 12/30/2024 11:36 PM Oxygen Saturation (74625-7) 96 % 12/31/2024 11:28 AM Oxygen Saturation (38228-6) 97 % 01/01/2025 10:57 AM Oxygen Saturation (95545-9) 94 % 01/01/2025 12:34 AM Oxygen Saturation (36158-9) 95 % 01/01/2025 11:21 PM Oxygen Saturation (14707-2) 96 % 01/02/2025 07:43 PM Oxygen Saturation (37661-4) 97 % 01/02/2025 09:04 AM Oxygen Saturation (36479-5) 92 % 01/03/2025 09:45 AM Oxygen Saturation (70224-2) 97 % 01/04/2025 04:28 AM Oxygen Saturation (21585-4) 96 % 01/04/2025 09:18 PM Oxygen Saturation (36908-5) 96 % 01/04/2025 08:50 AM Temperature (8310-5) 97 [degF] Respiratory Rate (9279-1) 18 /min Heart Rate (8867-4) 85 /min Blood Pressure Systolic (8480-6) 105 mm[Hg] Blood Pressure Diastolic (8462-4) 79 mm[Hg] 01/04/2025 08:49 AM Oxygen Saturation (08196-4) 94 % 01/05/2025 08:43 PM Oxygen Saturation (63283-5) 96 % 01/05/2025 06:23 PM Oxygen Saturation (33785-6) 96 % 01/06/2025 10:10 PM Oxygen Saturation (11706-8) 95 % 01/06/2025 08:39 AM Oxygen Saturation (70487-3) 96 % 01/07/2025 08:14 AM Oxygen Saturation (95926-2) 97 % 01/08/2025 08:10 AM Oxygen Saturation (13392-3) 99 % 01/07/2025 09:47 PM Oxygen Saturation (14034-9) 96 % 01/07/2025 09:46 PM Body Weight (85295-1) 231.8 [lb_av ] Body Mass Index (13034-7) 42.39 kg/m2 01/08/2025 11:42 PM Oxygen Saturation (80905-9) 96 % 01/09/2025 07:41 PM Oxygen Saturation (20599-3) 95 % 01/09/2025 03:39 PM Body Weight (84014-3) 233.6 [lb_av ] Body Mass Index (70340-5) 42.72 kg/m2 01/09/2025 08:28 AM Oxygen Saturation (08196-1) 94 % 01/10/2025 09:42 AM Oxygen Saturation (74311-2) 93 % 01/11/2025 10:05 AM Body Weight (83145-3) 233.6 [lb_av ] Body Mass Index (28450-7) 42.72 kg/m2 01/11/2025 09:34 AM Temperature (8310-5) 98 [degF] Oxygen Saturation (98713-4) 96 % Respiratory Rate (9279-1) 17 /min Heart Rate (8867-4) 102 /min Blood Pressure Systolic (8480-6) 103 mm[Hg] Blood Pressure Diastolic (8462-4) 65 mm[Hg] 01/11/2025 05:16 AM Oxygen Saturation (97944-0) 93 % 01/10/2025 05:52 PM Body Weight (00841-9) 210.6 [lb_av ] Body Mass Index (25517-3) 38.52 kg/m2 01/12/2025 07:35 AM Body Weight (08138-3) 233.4 [lb_av ] Body Mass Index (92758-6) 42.68 kg/m2 01/12/2025 07:34 AM Oxygen Saturation (85271-3) 96 % 01/11/2025 08:15 PM Oxygen Saturation (35533-0) 97 % 01/13/2025 09:37 AM Oxygen Saturation (91496-5) 94 % 01/12/2025 07:54 PM Oxygen Saturation (01184-2) 93 % 01/14/2025 12:48 AM Oxygen Saturation (93935-8) 95 % 01/14/2025 08:15 AM Oxygen Saturation (20272-0) 96 % 01/15/2025 08:36 AM Oxygen Saturation (96400-1) 95 % 01/15/2025 08:35 AM Oxygen Saturation (38598-7) 95 % 01/14/2025 11:33 PM Oxygen Saturation (78552-2) 99 % 01/15/2025 10:54 PM Oxygen Saturation (51663-7) 96 % 01/16/2025 07:35 PM Oxygen Saturation (62769-4) 95 % 01/16/2025 10:50 AM Oxygen Saturation (44265-5) 96 % 01/17/2025 08:10 AM Oxygen Saturation (65880-7) 97 % 01/17/2025 07:29 PM Oxygen Saturation (29575-7) 98 % 01/18/2025 10:35 AM Oxygen Saturation (08684-6) 99 % Respiratory Rate (9279-1) 16 /min Heart Rate (8867-4) 65 /min Blood Pressure Systolic (8480-6) 108 mm[Hg] Blood Pressure Diastolic (8462-4) 62 mm[Hg] 01/18/2025 10:36 AM Temperature (8310-5) 97.3 [degF] 01/18/2025 07:51 PM Oxygen Saturation (14276-9) 97 % 01/19/2025 08:04 PM Oxygen Saturation (07698-3) 96 % 01/19/2025 06:28 PM Oxygen Saturation (42697-0) 94 % 01/20/2025 11:17 AM Oxygen Saturation (29825-8) 95 % 01/21/2025 12:54 AM Oxygen Saturation (77354-0) 96 % 01/21/2025 08:32 AM Oxygen Saturation (60285-7) 95 % 01/21/2025 08:22 PM Oxygen Saturation (91173-5) 97 % 01/22/2025 12:10 PM Oxygen Saturation (53373-8) 95 % 01/22/2025 07:34 PM Oxygen Saturation (93423-9) 94 % 01/23/2025 09:54 AM Oxygen Saturation (81441-1) 94 % 01/23/2025 08:27 PM Oxygen Saturation (75380-6) 96 % 01/24/2025 06:59 AM Oxygen Saturation (35960-8) 97 % 01/25/2025 09:02 AM Temperature (8310-5) 98.3 [degF] Oxygen Saturation (00440-1) 92 % Respiratory Rate (9279-1) 18 /min Heart Rate (8867-4) 83 /min Blood Pressure Systolic (8480-6) 137 mm[Hg] Blood Pressure Diastolic (8462-4) 63 mm[Hg] 01/24/2025 07:26 PM Oxygen Saturation (19126-4) 97 % 01/25/2025 09:02 PM Oxygen Saturation (45573-7) 98 % 01/26/2025 07:07 AM Oxygen Saturation (68419-5) 97 % 01/26/2025 08:03 PM Oxygen Saturation (65419-1) 96 % 01/27/2025 08:54 AM Oxygen Saturation (40903-7) 90 % 01/27/2025 10:46 PM Oxygen Saturation (06690-3) 96 % 01/28/2025 08:49 AM Oxygen Saturation (92256-3) 96 % 01/28/2025 10:29 PM Oxygen Saturation (88319-6) 95 % 01/29/2025 09:25 AM Oxygen Saturation (43618-6) 98 % 01/29/2025 09:03 PM Oxygen Saturation (86855-1) 98 % 01/30/2025 09:43 AM Oxygen Saturation (48776-7) 98 % 01/30/2025 07:55 PM Oxygen Saturation (27035-5) 99 % 01/31/2025 07:30 AM Oxygen Saturation (37936-8) 98 % 01/31/2025 11:33 AM Oxygen Saturation (48715-6) 98 % 01/31/2025 07:24 PM Oxygen Saturation (07145-5) 97 % 02/01/2025 05:18 PM Temperature (8310-5) 97.6 [degF] Respiratory Rate (9279-1) 18 /min Heart Rate (8867-4) 75 /min Blood Pressure Systolic (8480-6) 117 mm[Hg] Blood Pressure Diastolic (8462-4) 77 mm[Hg] 02/01/2025 05:17 PM Oxygen Saturation (10722-8) 95 % 02/01/2025 09:26 PM Oxygen Saturation (86357-3) 96 % 02/02/2025 07:28 PM Oxygen Saturation (49943-9) 98 % 02/02/2025 06:17 PM Oxygen Saturation (15203-5) 96 % 02/03/2025 07:18 AM Oxygen Saturation (04455-0) 94 % 02/03/2025 09:12 PM Oxygen Saturation (47496-8) 97 % 02/04/2025 08:49 AM Oxygen Saturation (34669-3) 96 % 02/04/2025 09:32 PM Oxygen Saturation (63863-6) 94 % 02/05/2025 08:00 AM Oxygen Saturation (50257-7) 98 % 02/06/2025 08:41 AM Oxygen Saturation (71075-8) 96 % 02/06/2025 07:25 PM Oxygen Saturation (89032-3) 96 % 02/07/2025 08:11 AM Oxygen Saturation (91196-9) 92 % Body Weight (00470-7) 230.8 [lb_av] Body Mass Index (77540-0) 42.21 kg/m2 02/07/2025 09:25 PM Oxygen Saturation (44506-3) 97 % 02/08/2025 08:54 AM Oxygen Saturation (51861-6) 95 % 02/08/2025 08:55 AM Temperature (8310-5) 96.9 [degF] Oxygen Saturation (73406-1) 97 % Respiratory Rate (9279-1) 18 /min Heart Rate (8867-4) 75 /min Blood Pressure Systolic (8480-6) 127 mm[Hg] Blood Pressure Diastolic (8462-4) 77 mm[Hg] 02/08/2025 09:34 PM Oxygen Saturation (79411-5) 97 % 02/09/2025 07:31 AM Oxygen Saturation (11205-1) 94 % 02/09/2025 11:21 PM Oxygen Saturation (05387-3) 96 % 02/10/2025 09:02 AM Oxygen Saturation (02379-9) 96 % 02/10/2025 08:01 PM Oxygen Saturation (56322-8) 97 % 02/11/2025 03:36 PM Oxygen Saturation (00530-5) 94 % 02/11/2025 10:23 PM Oxygen Saturation (19758-9) 95 % 02/12/2025 09:42 AM Oxygen Saturation (72175-2) 98 % 02/12/2025 09:46 PM Oxygen Saturation (59685-4) 95 % 02/13/2025 11:08 AM Oxygen Saturation (94525-0) 96 % 02/13/2025 09:14 PM Oxygen Saturation (64958-8) 91 % 02/14/2025 08:49 AM Oxygen Saturation (52805-3) 91 % 02/14/2025 10:01 PM Oxygen Saturation (26603-0) 97 % 02/15/2025 05:09 PM Temperature (8310-5) 98.2 [degF] Respiratory Rate (9279-1) 16 /min Heart Rate (8867-4) 92 /min Blood Pressure Systolic (8480-6) 185 mm[Hg] Blood Pressure Diastolic (8462-4) 96 mm[Hg] 02/15/2025 05:08 PM Oxygen Saturation (86965-1) 93 % 02/15/2025 09:21 PM Oxygen Saturation (34660-2) 99 % 02/16/2025 05:07 PM Oxygen Saturation (41423-4) 95 % 02/16/2025 08:22 PM Oxygen Saturation (84082-7) 95 % 02/17/2025 09:37 AM Oxygen Saturation (04423-9) 95 % 02/17/2025 09:26 PM Oxygen Saturation (93748-8) 91 % 02/18/2025 01:55 PM Oxygen Saturation (67671-7) 96 % 02/18/2025 10:45 PM Oxygen Saturation (27514-1) 95 % 02/19/2025 10:11 AM Oxygen Saturation (08119-1) 90 % 02/19/2025 07:43 PM Oxygen Saturation (12734-1) 94 % 02/20/2025 04:42 PM Oxygen Saturation (13961-5) 96 % 02/20/2025 07:56 PM Oxygen Saturation (82010-6) 94 % 02/21/2025 03:45 PM Oxygen Saturation (36714-8) 95 % 02/22/2025 09:37 AM Temperature (8310-5) 96.2 [degF] Respiratory Rate (9279-1) 20 /min Heart Rate (8867-4) 83 /min Blood Pressure Systolic (8480-6) 147 mm[Hg] Blood Pressure Diastolic (8462-4) 73 mm[Hg] 02/22/2025 09:36 AM Oxygen Saturation (51502-0) 99 % 02/21/2025 09:01 PM Oxygen Saturation (65095-4) 98 % 02/22/2025 10:36 PM Oxygen Saturation (13389-2) 96 % 02/23/2025 09:41 AM Oxygen Saturation (30965-4) 90 % 02/23/2025 10:24 PM Oxygen Saturation (54905-1) 93 % 02/24/2025 09:03 AM Oxygen Saturation (68206-4) 94 % 02/24/2025 08:06 PM Oxygen Saturation (87547-7) 94 % 02/25/2025 08:59 AM Oxygen Saturation (45957-6) 96 % 02/25/2025 11:34 PM Oxygen Saturation (51234-2) 94 % 02/26/2025 09:47 AM Oxygen Saturation (28187-8) 95 % 02/26/2025 11:22 PM Oxygen Saturation (63386-3) 96 % 02/27/2025 07:55 AM Oxygen Saturation (49877-9) 92 % 02/27/2025 07:12 PM Oxygen Saturation (58618-9) 95 % 02/28/2025 04:18 PM Oxygen Saturation (37548-4) 96 % 02/28/2025 11:27 AM Oxygen Saturation (92942-3) 96 % 02/28/2025 08:19 PM Oxygen Saturation (34013-3) 96 % 03/01/2025 11:01 AM Temperature (8310-5) 98.5 [degF] Oxygen Saturation (37205-9) 94 % Respiratory Rate (9279-1) 17 /min Heart Rate (8867-4) 68 /min Blood Pressure Systolic (8480-6) 132 mm[Hg] Blood Pressure Diastolic (8462-4) 71 mm[Hg] 03/01/2025 11:47 AM Body Weight (04952-2) 234.6 [lb_av ] Body Mass Index (86204-3) 42.9 kg/m2 03/02/2025 12:10 AM Oxygen Saturation (81339-4) 99 % 03/02/2025 05:19 PM Oxygen Saturation (87808-5) 95 % 03/02/2025 08:11 PM Oxygen Saturation (39915-6) 100 % 03/03/2025 11:34 AM Oxygen Saturation (01781-5) 98 % 03/03/2025 10:35 PM Oxygen Saturation (32355-1) 95 % 03/04/2025 08:11 AM Oxygen Saturation (29247-2) 94 % 03/05/2025 08:12 AM Oxygen Saturation (60189-2) 93 % 03/04/2025 08:19 PM Oxygen Saturation (62832-0) 95 % 03/05/2025 08:13 AM Oxygen Saturation (60256-7) 93 % 03/06/2025 12:29 AM Oxygen Saturation (63227-0) 95 % 03/06/2025 09:29 AM Oxygen Saturation (78647-2) 96 % 03/06/2025 07:22 PM Oxygen Saturation (86249-6) 98 % 03/07/2025 03:19 PM Oxygen Saturation (10613-9) 98 % 03/07/2025 10:00 PM Oxygen Saturation (65824-2) 97 % 03/07/2025 07:37 PM Oxygen Saturation (42023-2) 97 % 03/08/2025 09:37 AM Temperature (8310-5) 97.6 [degF] Oxygen Saturation (24435-6) 94 % Respiratory Rate (9279-1) 16 /min Heart Rate (8867-4) 76 /min Blood Pressure Systolic (8480-6) 134 mm[Hg] Blood Pressure Diastolic (8462-4) 63 mm[Hg] 03/09/2025 04:17 AM Oxygen Saturation (40174-9) 97 % 03/09/2025 08:36 AM Oxygen Saturation (92118-1) 93 % 03/09/2025 08:37 AM Body Weight (11438-3) 236.6 [lb_av ] Body Mass Index (54232-6) 43.27 kg/m2 03/09/2025 07:22 PM Oxygen Saturation (51110-6) 94 % 03/10/2025 07:10 AM Oxygen Saturation (51612-6) 99 % 03/10/2025 11:22 PM Oxygen Saturation (66892-0) 97 % 03/10/2025 10:21 PM Oxygen Saturation (65632-7) 97 % 03/11/2025 03:10 PM Body Weight (66082-1) 237.4 [lb_av ] Body Mass Index (94414-6) 43.42 kg/m2 03/11/2025 12:43 PM Oxygen Saturation (30135-2) 94 % 03/11/2025 11:04 PM Oxygen Saturation (01320-2) 96 % 03/12/2025 03:16 PM Body Weight (82061-5) 236 [lb_av] Body Mass Index (54724-1) 43.16 kg/m2 03/12/2025 10:26 AM Oxygen Saturation (55784-2) 97 % 03/12/2025 10:12 PM Oxygen Saturation (26738-8) 97 % 03/13/2025 02:01 PM Body Weight (99736-5) 234.8 [lb_av ] Body Mass Index (94722-5) 42.94 kg/m2 03/13/2025 11:34 AM Oxygen Saturation (34192-8) 96 % 07/13/2025 03:41 PM Oxygen Saturation (61778-7) 95 % 07/14/2025 10:32 AM Oxygen Saturation (55747-9) 93 % 07/12/2025 12:17 AM Oxygen Saturation (38921-2) 98 % 07/13/2025 09:51 PM Oxygen Saturation (87193-6) 96 % 07/10/2025 12:01 AM Oxygen Saturation (84486-7) 97 % 07/10/2025 09:06 AM Oxygen Saturation (31900-9) 98 % 06/15/2025 09:09 AM Body Weight (81912-5) 237 [lb_av] Body Mass Index (24300-2) 43.34 kg/m2 07/09/2025 07:19 AM Oxygen Saturation (15505-5) 99 % 06/14/2025 08:58 AM Body Weight (60153-4) 237.1 [lb_av ] Body Mass Index (47370-7) 43.36 kg/m2 07/12/2025 01:00 PM Temperature (8310-5) 98 [degF] Respiratory Rate (9279-1) 17 /min Heart Rate (8867-4) 80 /min Blood Pressure Systolic (8480-6) 124 mm[Hg] Blood Pressure Diastolic (8462-4) 63 mm[Hg] 06/13/2025 12:56 PM Body Weight (25511-5) 236.7 [lb_av ] Body Mass Index (49625-2) 43.29 kg/m2 07/10/2025 09:57 PM Oxygen Saturation (17870-8) 97 % 06/14/2025 07:23 AM Temperature (8310-5) 97.1 [degF] Respiratory Rate (9279-1) 14 /min Heart Rate (8867-4) 66 /min Blood Pressure Systolic (8480-6) 125 mm[Hg] Blood Pressure Diastolic (8462-4) 63 mm[Hg] 07/11/2025 08:13 AM Oxygen Saturation (61721-8) 96 % 07/10/2025 08:58 AM Body Weight (25254-7) 239.6 [lb_av ] Body Mass Index (87698-7) 43.82 kg/m2 06/28/2025 11:13 AM Temperature (8310-5) 96.9 [degF] Respiratory Rate (9279-1) 18 /min Heart Rate (8867-4) 72 /min Blood Pressure Systolic (8480-6) 120 mm[Hg] Blood Pressure Diastolic (8462-4) 66 mm[Hg] 06/21/2025 10:00 AM Temperature (8310-5) 97 [degF] Respiratory Rate (9279-1) 16 /min Heart Rate (8867-4) 84 /min Blood Pressure Systolic (8480-6) 146 mm[Hg] Blood Pressure Diastolic (8462-4) 78 mm[Hg] 07/12/2025 09:00 PM Oxygen Saturation (49997-3) 98 % 06/12/2025 09:53 AM Body Weight (66870-6) 236 [lb_av] Body Mass Index (44903-1) 43.16 kg/m2 07/05/2025 10:22 AM Temperature (8310-5) 97 [degF] Respiratory Rate (9279-1) 17 /min Heart Rate (8867-4) 82 /min Blood Pressure Systolic (8480-6) 116 mm[Hg] Blood Pressure Diastolic (8462-4) 60 mm[Hg] 06/09/2025 08:18 AM Body Weight (95869-7) 237.2 [lb_av ] Body Mass Index (93068-7) 43.38 kg/m2 05/31/2025 11:58 AM Temperature (8310-5) 97.6 [degF] Respiratory Rate (9279-1) 20 /min Heart Rate (8867-4) 64 /min Blood Pressure Systolic (8480-6) 124 mm[Hg] Blood Pressure Diastolic (8462-4) 75 mm[Hg] 05/05/2025 11:28 AM Body Weight (82505-8) 223 [lb_av] Body Mass Index (31818-0) 40.78 kg/m2 05/23/2025 06:35 PM Temperature (8310-5) 97.1 [degF] 06/07/2025 09:34 AM Temperature (8310-5) 96.7 [degF] Respiratory Rate (9279-1) 18 /min Heart Rate (8867-4) 68 /min Blood Pressure Systolic (8480-6) 112 mm[Hg] Blood Pressure Diastolic (8462-4) 63 mm[Hg] 05/24/2025 04:17 PM Body Weight (58685-1) 230.2 [lb_av ] Body Mass Index (51652-1) 42.1 kg/m2 06/09/2025 01:44 AM Temperature (8310-5) 98 [degF] 05/17/2025 09:16 AM Respiratory Rate (9279-1) 18 /min Heart Rate (8867-4) 66 /min Blood Pressure Systolic (8480-6) 130 mm[Hg] Blood Pressure Diastolic (8462-4) 62 mm[Hg] 05/09/2025 09:19 AM Body Weight (25174-3) 228 [lb_av] Body Mass Index (68004-2) 41.7 kg/m2 05/24/2025 09:12 AM Temperature (8310-5) 97.3 [degF] Respiratory Rate (9279-1) 18 /min Heart Rate (8867-4) 62 /min Blood Pressure Systolic (8480-6) 131 mm[Hg] Blood Pressure Diastolic (8462-4) 73 mm[Hg] 05/06/2025 05:02 PM Body Weight (59767-2) 224.2 [lb_av ] Body Mass Index (53895-6) 41 kg/m2 04/30/2025 11:45 AM Body Weight (34709-6) 226 [lb_av] Body Mass Index (37817-1) 41.33 kg/m2 04/29/2025 06:00 PM Body Weight (68475-9) 225 [lb_av] Body Mass Index (84517-1) 41.15 kg/m2 05/01/2025 01:07 PM Body Weight (98531-3) 224.8 [lb_av ] Body Mass Index (60242-4) 41.11 kg/m2 05/10/2025 08:33 AM Respiratory Rate (9279-1) 15 /min Heart Rate (8867-4) 95 /min Blood Pressure Systolic (8480-6) 117 mm[Hg] Blood Pressure Diastolic (8462-4) 67 mm[Hg] 05/07/2025 09:10 AM Body Weight (37802-8) 228.2 [lb_av ] Body Mass Index (10062-3) 41.73 kg/m2 04/20/2025 01:58 PM Body Weight (32544-1) 226 [lb_av] Body Mass Index (16028-4) 41.33 kg/m2 07/14/2025 11:32 PM Oxygen Saturation (84750-1) 96 % 07/15/2025 08:49 AM Oxygen Saturation (99224-6) 95 % 07/16/2025 12:23 AM Oxygen Saturation (74200-6) 94 % 07/16/2025 04:58 PM Oxygen Saturation (45540-5) 99 % 07/16/2025 11:23 AM Oxygen Saturation (85491-9) 96 % 07/17/2025 12:00 AM Oxygen Saturation (82533-0) 98 % 07/17/2025 09:49 AM Oxygen Saturation (09111-3) 90 % 07/17/2025 08:59 PM Oxygen Saturation (16281-3) 94 % 07/18/2025 08:57 AM Oxygen Saturation (73058-9) 97 % 07/18/2025 07:52 PM Oxygen Saturation (42503-3) 96 % 07/19/2025 10:22 AM Oxygen Saturation (99689-3) 95 % 07/19/2025 10:23 AM Temperature (8310-5) 97.8 [degF] Oxygen Saturation (48095-0) 95 % Respiratory Rate (9279-1) 16 /min Heart Rate (8867-4) 85 /min Blood Pressure Systolic (8480-6) 109 mm[Hg] Blood Pressure Diastolic (8462-4) 50 mm[Hg] 07/19/2025 08:51 PM Oxygen Saturation (68204-7) 96 % 07/20/2025 11:43 AM Oxygen Saturation (13619-9) 97 % 07/20/2025 08:29 PM Oxygen Saturation (51660-9) 95 % 07/21/2025 11:28 PM Oxygen Saturation (36039-6) 94 % 07/22/2025 10:20 AM Oxygen Saturation (93017-2) 97 % 07/22/2025 10:12 PM Oxygen Saturation (31418-0) 96 % 07/23/2025 10:40 AM Oxygen Saturation (20491-2) 93 % 07/24/2025 12:45 AM Oxygen Saturation (15919-3) 95 % 07/24/2025 05:11 PM Oxygen Saturation (53532-7) 93 % 07/24/2025 09:50 PM Oxygen Saturation (16521-9) 90 % 07/25/2025 09:52 AM Oxygen Saturation (76520-4) 98 % 07/25/2025 09:25 PM Oxygen Saturation (75404-2) 97 % 07/26/2025 11:45 AM Oxygen Saturation (26161-1) 97 % 07/27/2025 01:24 AM Oxygen Saturation (79245-8) 97 % 07/27/2025 12:19 PM Oxygen Saturation (31872-8) 95 % 07/27/2025 10:43 PM Oxygen Saturation (68800-0) 95 % 07/28/2025 09:46 AM Oxygen Saturation (67949-0) 94 % 07/28/2025 11:25 PM Oxygen Saturation (60677-5) 97 % 07/29/2025 12:17 PM Oxygen Saturation (85870-4) 94 % 07/29/2025 09:28 PM Oxygen Saturation (29892-9) 96 % 07/30/2025 09:54 PM Oxygen Saturation (21015-4) 97 % 07/30/2025 07:06 PM Oxygen Saturation (50771-0) 99 % 07/31/2025 10:16 AM Oxygen Saturation (55030-5) 94 % 07/31/2025 11:00 PM Oxygen Saturation (54650-9) 96 % 08/01/2025 10:30 PM Oxygen Saturation (26027-6) 92 % 08/01/2025 06:35 PM Oxygen Saturation (18148-0) 93 % 08/02/2025 10:56 AM Temperature (8310-5) 98.3 [degF] Oxygen Saturation (36347-9) 93 % Respiratory Rate (9279-1) 18 /min Heart Rate (8867-4) 61 /min Blood Pressure Systolic (8480-6) 101 mm[Hg] Blood Pressure Diastolic (8462-4) 76 mm[Hg] 08/02/2025 11:54 PM Oxygen Saturation (17553-8) 95 % 08/03/2025 12:29 PM Oxygen Saturation (47332-1) 98 % 08/04/2025 09:24 AM Oxygen Saturation (03867-8) 94 % 08/04/2025 11:35 PM Oxygen Saturation (82989-9) 96 % 08/05/2025 10:30 AM Oxygen Saturation (18541-3) 99 % 08/05/2025 09:55 PM Oxygen Saturation (21850-4) 98 % 08/06/2025 08:28 AM Oxygen Saturation (74246-6) 96 % 08/06/2025 09:32 PM Oxygen Saturation (58519-4) 95 % 08/07/2025 10:43 AM Oxygen Saturation (84859-9) 98 % 08/07/2025 07:38 PM Oxygen Saturation (95391-3) 98 % 08/08/2025 11:07 AM Oxygen Saturation (40448-3) 99 % 08/09/2025 02:36 AM Oxygen Saturation (98780-7) 94 % 08/09/2025 12:15 PM Body Weight (90400-7) 219.4 [lb_av ] Body Mass Index (99543-7) 40.12 kg/m2 08/09/2025 10:27 AM Oxygen Saturation (20827-5) 93 % Respiratory Rate (9279-1) 15 /min Heart Rate (8867-4) 62 /min Blood Pressure Systolic (8480-6) 131 mm[Hg] Blood Pressure Diastolic (8462-4) 73 mm[Hg] 08/09/2025 10:45 PM Oxygen Saturation (88989-2) 98 % 08/10/2025 03:52 PM Body Weight (61228-3) 220 [lb_av] Body Mass Index (58223-1) 40.23 kg/m2 08/10/2025 10:45 AM Oxygen Saturation (01277-2) 97 % 08/10/2025 09:29 PM Oxygen Saturation (93645-0) 91 % 08/11/2025 03:58 PM Body Weight (61260-0) 219 [lb_av] Body Mass Index (96823-1) 40.05 kg/m2 08/11/2025 09:23 AM Oxygen Saturation (72737-4) 97 % 08/12/2025 12:50 AM Oxygen Saturation (06010-1) 96 % 08/12/2025 01:05 PM Body Weight (80397-5) 219 [lb_av] Body Mass Index (79585-3) 40.05 kg/m2 08/12/2025 11:56 AM Oxygen Saturation (65065-6) 99 % 08/14/2025 12:03 AM Oxygen Saturation (57633-1) 97 % 08/13/2025 07:35 PM Oxygen Saturation (77478-6) 99 % Body Weight (89523-3) 218.8 [lb_av] Body Mass Index (48291-4) 40.01 kg/m2 08/14/2025 11:26 AM Oxygen Saturation (92717-7) 94 % 08/14/2025 08:02 PM Oxygen Saturation (67992-0) 96 % 08/15/2025 05:37 PM Oxygen Saturation (19115-2) 95 % 08/16/2025 05:01 AM Oxygen Saturation (12277-1) 97 % 08/16/2025 10:25 PM Oxygen Saturation (35854-3) 98 % 08/16/2025 05:29 PM Temperature (8310-5) 97 [degF] Oxygen Saturation (09710-5) 96 % Respiratory Rate (9279-1) 19 /min Heart Rate (8867-4) 83 /min Blood Pressure Systolic (8480-6) 151 mm[Hg] Blood Pressure Diastolic (8462-4) 82 mm[Hg] 08/17/2025 10:02 AM Oxygen Saturation (12757-6) 96 % 08/17/2025 08:13 PM Oxygen Saturation (23784-1) 98 % 08/18/2025 10:55 AM Oxygen Saturation (91806-9) 96 % 08/19/2025 01:23 AM Oxygen Saturation (72042-7) 95 % 08/19/2025 10:01 AM Oxygen Saturation (82015-7) 96 % 08/20/2025 12:28 AM Oxygen Saturation (44296-9) 95 % 08/20/2025 08:23 AM Oxygen Saturation (33412-7) 99 % 08/20/2025 07:50 PM Oxygen Saturation (19260-2) 96 % 08/21/2025 11:24 AM Oxygen Saturation (15492-1) 98 % 08/21/2025 07:59 PM Oxygen Saturation (31858-3) 94 % 08/22/2025 11:26 AM Oxygen Saturation (44755-6) 96 % 08/23/2025 05:21 AM Oxygen Saturation (15414-9) 94 % 08/23/2025 11:48 AM Oxygen Saturation (59662-3) 97 % Respiratory Rate (9279-1) 19 /min Blood Pressure Systolic (8480-6) 116 mm[Hg] Blood Pressure Diastolic (8462-4) 67 mm[Hg] 08/23/2025 11:47 AM Temperature (8310-5) 98.1 [degF] Heart Rate (8867-4) 67 /min 08/23/2025 03:41 PM Body Weight (55838-4) 218.2 [lb_av ] Body Mass Index (03441-9) 39.9 kg/m2 08/23/2025 08:00 PM Oxygen Saturation (25672-1) 97 % 08/24/2025 12:36 PM Oxygen Saturation (09754-2) 97 % 08/24/2025 07:54 PM Oxygen Saturation (20484-6) 96 % 08/25/2025 02:20 PM Body Weight (31237-8) 224.6 [lb_av ] Body Mass Index (48696-9) 41.08 kg/m2 08/25/2025 10:06 PM Oxygen Saturation (05705-2) 95 % 08/26/2025 04:47 PM Body Weight (33159-6) 223.8 [lb_av ] Body Mass Index (64371-5) 40.93 kg/m2 08/26/2025 09:26 AM Oxygen Saturation (07455-0) 98 % 08/26/2025 10:30 PM Oxygen Saturation (72154-7) 96 % 08/27/2025 09:00 AM Oxygen Saturation (25975-2) 97 % 08/27/2025 11:10 PM Oxygen Saturation (14358-8) 95 % 08/28/2025 11:32 AM Oxygen Saturation (68572-9) 90 % 08/28/2025 07:58 PM Oxygen Saturation (65778-3) 96 % 08/29/2025 04:15 PM Oxygen Saturation (28819-6) 96 % 08/30/2025 12:12 AM Oxygen Saturation (98700-5) 96 % 08/30/2025 10:53 AM Temperature (8310-5) 97.6 [degF] Oxygen Saturation (18652-9) 99 % Respiratory Rate (9279-1) 17 /min Heart Rate (8867-4) 81 /min Blood Pressure Systolic (8480-6) 131 mm[Hg] Blood Pressure Diastolic (8462-4) 69 mm[Hg] 08/30/2025 09:43 PM Oxygen Saturation (80137-9) 96 % Social History Element Description Date Comment Tobacco smoking status NHIS Never smoker Encounters Type CPT Code Date Location Provider Indication s encounter report 02/03/2022 02:23 PM RENE MORENO MD encounter report 02/03/2022 02:23 PM Nathaniel Maharaj MD Advance Directives Directive Description Verification Date Supporting Document(s) Resuscitation
--- OUTSIDE RECORDS SUMMARY | 2025-08-31 17:57 | XMS_ITS | Data Portability ---
Author Organization [facility] Aj Wolf, [facility] Address [address] [place] [phone] Assessment No assessment recorded. Plan of Treatment Reminders Order Date Submit Date Provider Last Modified By Organization Details Last Modified Time Details Appointments None record ed. Lab None record ed. Referral None record ed. Procedures None record ed. Surgeries None record ed. Imaging None record ed. Medication Orders None record ed. Patient TargetsNo targets recorded. Patient InstructionsNo instructions recorded. Reason for Referral None Reported. Problems Name Problem SNOMED Code Status Onset Date Resolution Date Notes Provider Name and Address Organization Details Recorded Time Parkinso n's disease 89222980 [facility] 2023 [facility] Anxiety 03454460 Active 2023 [facility] 16:24:41 Chronic kidney disease stage 3B 496786111 Active 2023 [facility] 16:24:46 Edema 739991086 Completed 202301/04/2025 Removal Reason: resolved [facility] 16:25:12 Diabetes mellitus 42252154 Active 2023 [facility] 16:25:01 [facility] pain 49245611 [facility] 16:24:51 Pain of multiple joints 82610405 [facility]23 [facility] 16:25:16 Pain of left shoulder joint 44561141925 946036 Completed 202301/04/2025 Removal Reason: resolved DEVI cole [facility] 5 16:25:28 Primary insomnia 0144775 Active 2024 [facility] 5 09:49:23 Bilatera l lower limb edema 868561652 Active 2024 [facility] 09:49:23 Acute kidney injury 62889602 Active 2024 [facility] 5 13:12:10 Type 2 diabetes mellitus 28245365 Active 2024 DEVI cole [facility] 5 12:50:02 Blister of foot 532715864 Active 2024 DEVI OLMEDO [facility] 5 12:52:39 Retentio n of urine 858206626 [facility] 2024 [facility] 12:32:25 Problem Notes None recorded. Procedures Surgical History Date Name Laterality Status Provider Name and Address Organization Details Recorded Time tonsillectomy completed KENDRICK LAWRENCE [facility] 05/16/2025 09:54:05 Imaging Results None recorded. Procedure Notes None recorded. Medical Equipment None Reported. Allergies Allergen ID Allergen Name Allergen Category Reaction Reaction Severity Criticality Documentation Date Start Date Code Code System Note Provider Name and Address Organization Details Recorded Time 44791 ampicilli n medicatio n Not available Not available Not available 06/06/2023 733 RxNorm KENDRICK cole [facility] 09:44:08 Medications Name Sig Start Date Stop Date Status Note LastModified by Organization Details LastModified Time Santyl 250 unit/gram topical ointment 05/16 completed Not Available Not Available Not Available furosemid e 40 mg tablet active Not Available Not Available Not Available atorvasta tin 40 mg tablet 05/16 completed Not Available Not Available Not Available neomycin- polymyxin -hydrocor t 3.5 mg/mL-10, 000 unit/mL-1 % ear solution 05/16 completed Not Available Not Available Not Available gabapenti n 600 mg tablet active Not Available Not Available Not Available doxycycli ne hyclate 100 mg capsule Take 1 capsule twice a day by oral route for 10 days. 08/04 completed Not Available Not Available Not Available Normal Saline Flush 0.9 % injection syringe 05/16 completed Not Available Not Available Not Available atorvasta tin 10 mg tablet active Not Available Not Available Not Available morphine concentra te 100 mg/5 mL (20 mg/mL) oral solution 05/16 completed Not Available Not Available Not Available tizanidin e 4 mg tablet active Not Available Not Available Not Available citalopra m 10 mg tablet active Not Available Not Available Not Available hydrocodo ne 5 mg-acetam inophen 325 mg tablet 1-2 PO Q6h prn 2023 active Not Available Not Available Not Avai lable minocycli ne 100 mg capsule 05/16 completed Not Available Not Available Not Available cyanocoba genevieve (vit B-12) 1,000 mcg tablet active Not Available Not Available Not Available levofloxa violeta 250 mg tablet 05/16 completed Not Available Not Available Not Available ceftriaxo ne 1 gram solution for injection 03/08 completed Not Available Not Available Not Available potassium chloride ER 20 mEq tablet,ex tended release(p art/cryst ) active Not Available Not Available Not Available lorazepam 0.5 mg tablet 1 QHS prn active Not Available Not Available No t Available Triad Wound Dressing paste 05/16 completed Not Available Not Available Not Available gabapenti n 800 mg tablet active Not Available Not Available Not Available Humalog U-100 Insulin 100 unit/mL subcutane ous solution active Not Available Not Available Not Available pantopraz ole 40 mg tablet,de layed release daily active Not Available Not Available Not Available lisinopri l 10 mg tablet daily 05/16 completed 0; Recorded 09/16/20 22 1:04PM by Emerald Shane RN, Office Visit; Not Available Not Available Not Available promethaz ine 25 mg tablet active Not Available Not Available Not Available magnesium citrate oral solution 05/16 completed Not Available Not Available Not Available aspirin 81 mg chewable tablet active Not Available Not Available Not Available folic acid 1 mg tablet active Not Available Not Available Not Available mupirocin 2 % topical ointment APPLY A SMALL AMOUNT TO THE AFFECTED AREA BY TOPICAL ROUTE 3 TIMES PER DAY until healed 2024 active Not Available Not Available Not Avai lable sodium chloride 0.9 % intraveno us solution active Not Available Not Available Not Available nystatin 100,000 unit/gram topical powder active Not Available Not Available Not Available levofloxa violeta 750 mg tablet 05/16 completed Not Available Not Available Not Available carbidopa 25 mg-levodo pa 100 mg tablet active Not Available Not Available Not Available cefdinir 300 mg capsule 05/16 completed Not Available Not Available Not Available cholecalc iferol (vitamin D3) 125 mcg (5,000 unit) capsule active Not Available Not Available Not Available loratadin e 10 mg tablet active Not Available Not Available Not Available oxycodone 5 mg tablet *USED FROM EKIT* 2 BY MOUTH EVERY 8 HOURS active Not Available Not Available No t Available Laxative (bisacody l) 5 mg tablet,de layed release active Not Available Not Available Not Available insulin lispro (U-100) 100 unit/mL subcutane ous pen active Not Available Not Available Not Available cyclobenz aprine 5 mg tablet 05/16 completed Not Available Not Available Not Available lactulose 10 gram/15 mL oral solution 05/16 completed Not Available Not Available Not Available oxycodone every four hours, as needed 05/16 completed 0; Recorded 09/16/20 1:04PM by Emerald Shane RN, Office Visit; Not Available Not Available Not Available carbidopa -levodopa three times daily 05/16 completed 2 tabs in am and noon 1 tab at hs; 0; Recorded 09/16/20 1:04PM by Emerald Shane RN, Office Visit; Not Available Not Available Not Available Vitamin D3 daily 05/16 completed 0; Recorded 09/16/20 1:04PM by Emerald Shane RN, Office Visit; Not Available Not Available Not Available gabapenti n two times daily 05/16 completed 0; Recorded 09/16/20 1:04PM by Emerald Shane RN, Office Visit; Not Available Not Available Not Available Novolog U-100 Insulin aspart with meals 05/16 completed recorded , not sent to pharmacy . dose increase ; 11501; Recorded 09/16/20 1:08PM by Emerald Shane RN (Authori zed through Karl Olmedo DO), Office Visit; Refill Quantity : 0; Not Available Not Available Not Available Januvia 100 mg tablet daily 05/16 completed 0; Recorded 09/16/20 1:04PM by Emerald Shane RN, Office Visit; Not Available Not Available Not Available oxycodone 10 mg tablet 1 PO Q8h prn active Not Available Not Available No t Available diclofena c 1 % topical gel APPLY 2 GRAMS TO THE AFFECTED AREA(S) BY TOPICAL ROUTE 4 TIMES PER DAY active Not Available Not Available No t Available Calmosept ine 0.44 %-20.6 % topical ointment active Not Available Not Available Not Available Heparin Lock Flush (Porcine) (PF) 100 unit/mL intraveno us syringe active Not Available Not Available Not Available MediHoney (honey) 80 % topical gel 05/16 completed Not Available Not Available Not Available Trulicity 1.5 mg/0.5 mL subcutane ous pen injector weekly on 05/16 completed Not Available Not Available Not Available Tresiba FlexTouch U-100 insulin 100 unit/mL (3 mL) subcutane ous pen active Not Available Not Available Not Available Trulicity 3 mg/0.5 mL subcutane ous pen injector active Not Available Not Available Not Available Vitals Date Recorded Body height Body mass index (BMI) Body weight Oxygen saturation Oxygen saturation in Arterial blood by Pulse oximetry Heart rate Respiratory rate Body temperature Systolic And Diastolic Provider Name and Address Organization Details Last Updated DateTime 5 157.48 cm 41.7 kg/m2 030873. 06 g 99 % 99 % 66 /min 18 /min 97 [degF] 130/62 mm[Hg] DEVI PONDMARCO [facility] 5 13:10:23 Date Recorded Body height Body mass index (BMI) Body weight Oxygen saturation Oxygen saturation in Arterial blood by Pulse oximetry Heart rate Respiratory rate Body temperature Systolic And Diastolic Provider Name and Address Organization Details Last Updated DateTime 5 157.48 cm 42.1 kg/m2 077188. 25 g 98 % 98 % 62 /min 18 /min 97.3 [degF] 131/73 mm[Hg] [facility] 5 12:47:47 Date Recorded Body height Body mass index (BMI) Body weight Oxygen saturation Oxygen saturation in Arterial blood by Pulse oximetry Heart rate Respiratory rate Body temperature Systolic And Diastolic Provider Name and Address Organization Details Last Updated DateTime 5 157.48 cm 43.7 kg/m2 433801. 58 g 97 % 97 % 80 /min 17 /min 98 [degF] 124/63 mm[Hg] KENDRICK LAWRENCE [facility] 5 11:54:49 Date Recorded Body height Oxygen saturation Oxygen saturation in Arterial blood by Pulse oximetry Heart rate Respiratory rate Body temperature Systolic And Diastolic Provider Name and Address Organization Details Last Updated DateTime 5 157.48 cm 93 % 93 % 61 /min 18 /min 98.3 [degF] 101/76 mm[Hg] [facility] 12:29:45 Social History Question Answer Notes LastModified by Organizat ion Details LastModified Time Tobacco Smoking Status Unknown If Ever Smoked KENDRICK HOWARD cole, [facility] 05/16/2025 09:52:40 [facility] Information not available 05/16/2025 What Was The Date Of Your Most Recent Tobacco Screening? 05/16/2025 [email or web address] Information not available 05/16/2025 Sex: Unknown Functional Status Question Answer Note LastModified by Organizat ion Details LastModified Time Do you use any illicit or recreational drugs? No [email or web address] Information not available 05/16/2025 What is your level of alcohol consumption? None [email or web address] Information not available 05/16/2025 Mental Status None recorded. Family History Nothing Reported. Medical History No medical history recorded. Gynecological HistoryNo gynecological history recorded. Obstetrics History GPAL:G 0 P 0 0 0 0 Immunizations Vaccine Type Date Status Note Provider Nam e and Address Organization Details Recorded Time Influenza, high-dose, trivalent, PF 6 completed Not Available [facility] 08/02/2025 12:17:22 zoster recombinant 8 completed Not Available [facility] 08/02/2025 12:17:22 zoster recombinant 8 completed Not Available [facility] 08/02/2025 12:17:22 Tdap 8 completed Not Available [facility] 08/02/2025 12:17:22 COVID-19, mRNA, LNP-S, PF, 100 mcg/0.5mL dose or 50 mcg/0.25mL dose 1 completed Not Available [facility] 08/02/2025 12:17:22 COVID-19, mRNA, LNP-S, PF, 100 mcg/0.5mL dose or 50 mcg/0.25mL dose 1 completed Not Available [facility] 08/02/2025 12:17:22 COVID-19, mRNA, LNP-S, PF, 100 mcg/0.5mL dose or 50 mcg/0.25mL dose 2 completed Not Available [facility] 08/02/2025 12:17:22 COVID-19, mRNA, LNP-S, bivalent, PF, 50 mcg/0.5 mL or 25mcg/0.25 mL dose 2 completed Not Available [facility] 08/02/2025 12:17:22 COVID-19, mRNA, LNP-S, PF, francia-sucrose, 30 mcg/0.3 mL 4 completed Not Available [facility] 08/02/2025 12:17:22 Past Encounters Encounter ID Performer Location Encounter Start Date Encounter Closed Date Diagnosis/Indication Diagnosis SNOMED-CT Code Diagnosis ICD10 Code Diagnosis IMO Codes Diagnosis Note [id number] DILLON MADDOX PA-C [facility] ([facility]) [address] [place] [phone] 09/07/2024 11:55:42 10/01/2024 22:00:49 Parkinson's disease 39881449 G20.A1 CARB/LEVO 25/100 5 X QD Dementia 17234305 F03.90 2 YEARS AT [facility] Anxiety 18288247 F41.9 CELEXA 10MG QD Chronic ki dney disease stage 3B 386712126 N18.32 CR 1.0 GFR 60% Diabetes mellitus 092848 09 E11.9 DIPIKA 800MG QD A1C 6.3 HUMALOG 5UNITS AC TREISBA 35UNITS QD, TRULICITY 3MG WEEKLY Edema 926988608 R60.9 FUREOSEMID E 40MG QD NO ORDER CHANGES [id number] Beny Vital MD [facility] ([facility]) [address] [place] [id number] 5 09/21/2024 08:41:53 09/25/2024 20:20:02 Lives in assisted 461444385 Z59.3 Need for [facility] care assistance [phone] 1452948 Z74.1 Diabetes mellitus 076018 09 E13.42 Chronic ki dney disease stage 3B 750552488 N18.32 Parkinson's disease 4904 9000 G20.A1 stable with meds. [id number] Beny Vital MD [facility] ([facility]) [address] [place] [id number] 5 10/19/2024 08:06:37 10/21/2024 08:11:28 Need for personal care assistance [id number] 6362083 Z74.1 Lives in assisted 16 9310212 Z59.3 Chronic ki dney disease stage 3B 086170349 N18.32 Diabetes mellitus 633021 09 E11.9 Parkinson's disease 4904 9000 G20.A1 stable with meds. Pain of mu ltiple joints 55260765 M25.50 Will try some Diclofenac gel prn [id number] DILLON MADDOX PA-C [facility] ([facility]) [address] [place] [id number] 5 10/26/2024 12:28:58 11/22/2024 08:16:29 Pain of left shoulder joint 6288849773 8031658 M25.512 DICLOFENAC 1GR topically apply to affected area QD PRNIf not helpful can do a OT referal. [id number] Beny Vital MD [facility] ([facility]) [address] [place] [id number] 5 11/16/2024 08:09:21 11/21/2024 13:19:11 Need for personal care assistance [id number] 3735667 Z74.1 Lives in assisted 16 1681407 Z59.3 Chronic ki dney disease stage 3B 798189751 N18.32 Parkinson's disease 4904 9000 G20.A1 stable with meds. Pain of mu ltiple joints 82782028 M25.50 stable [id number] DILLON MADDOX PA-C [facility] ([facility]) [address] [place] [id number] 5 12/21/2024 12:27:11 01/13/2025 12:17:28 Pain of left shoulder joint 6159764558 2977778 M25.512 OT referral. to help with pain and ROM.She already has pain medication and Votaren rub. [id number] Beny Vital MD [facility] ([facility]) [address] [place] [address] [id number] 5 01/25/2025 08:16:55 01/27/2025 06:04:41 Need for personal care assistance [phone] 8327584 Z74.1 Lives in assisted 16 6698184 Z59.3 Chronic ki dney disease stage 3B 835698051 N18.32 Pain of mu ltiple joints 28380163 M25.50 stable Parkinson's disease 4904 9000 G20.A1 stable with meds. [id number] DILLON MADDOX PA-C [facility] ([facility]) [address] [place] [phone] 5 03/08/2025 12:02:24 03/23/2025 18:20:25 Primary insomnia 4043154 F51.01 00340 ativan .5mg q hs prn x 14 dayswe reeval and if non use then d/c. if she is using freq then we will consider using for longer duration [id number] DILLON MADDOX PA-C [facility] ([facility]) [address] [place] [address] [id number] 5 03/15/2025 12:39:01 03/31/2025 16:58:30 Bilateral lower limb edema 352548310 R60.0 8167056 wt check qd x3 days,chest xray,cbc/c mp/bnp/a1c spironalac tone 50mg qd [id number] Beny Vital MD [facility] ([facility]) [address] [place] [address] [id number] 5 03/22/2025 07:57:47 03/24/2025 12:30:58 Need for personal care assistance [phone] 5561527 Z74.1 [id number] Lives in assisted 16 8763899 Z78.9 3177995 Chronic ki dney disease stage 3B 454320598 N18.32 Diabetes mellitus 697043 09 E11.9 Chronic pain 54309961 G8 9.29 Parkinson's disease 4904 9000 G20.A1 stable with meds. [id number] DILLON MADDOX PA-C [facility] ([facility]) [address] [place] [address] [id number] 5 04/12/2025 12:34:23 04/21/2025 10:58:14 Cellulitis of umbilicus 92643871 L03.318 3154047 cephalexin 500mg qid x 7 daysmupiro violeta tid [id number] DILLON MADDOX PA-C [facility] ([facility]) [address] [place] [address] [id number] 5 05/03/2025 12:20:57 05/17/2025 18:09:32 Acute urinary tract infection 657258698 N39.0 185252 er follow up on cefdinir changed to bactrim due to resistance push fluids. continue to monitor. [id number] John Maddox MD [facility] ([facility]) [address] [place] [address] [id number] 5 05/16/2025 09:08:37 06/06/2025 12:56:37 Anxiety 54278456 F41.9 54739 [id number] DILLON MADDOX PA-C [facility] ([facility]) [address] [place] [address] [id number] 5 05/17/2025 12:23:19 06/06/2025 14:54:26 Acute kidney injury 33796919 N17.9 615858 cr 2.2 k5,5cr 1.1 on 03/21d/c lasix kcl bmp Thursday and Thursday ua with c&s renal us for krystina [id number] DILLON MADDOX PA-C [facility] ([facility]) [address] [place] [address] [id number] 5 05/24/2025 15:06:10 06/06/2025 14:41:22 Acute kidney injury 70080633 N17.9 641436 cr 1.8 on followup (baseline 1.2) on injury her Cr 2.2kidney us normal, improved off lasix bmp in 2 weeks [id number] DILLON MADDOX PA-C [facility] ([facility]) [address] [place] [address] [id number] 5 05/31/2025 12:40:59 06/07/2025 17:41:34 Type 2 diabetes mellitus 60026805 E11.9 Z79.4 67855087 increase degludec insulin to 40 units at hs and lispro to 12 uits ac Blister of foot 40813856 3 S90.426A 56435639 feet inspected and no lesions or bruising seen. [id number] John Maddox MD [facility] ([facility]) [address] [place] [address] [id number] 5 07/18/2025 07:59:59 07/24/2025 12:24:24 Chronic kidney disease stage 3B 944052075 N18.32 Type 2 juan r betes mellitus 13620868 E11.9 Z79.4 43467912 Stasis dermatitis 935116 05 I87.2 29203255 with likely cellulitis mupirocin and doxycline ordered as well as iodine tx daily Health Concerns Section Related Observation LastModified by Organization Detai ls LastModified Time None Recorded Concern Status LastModified by Organization Details LastModified Time None Recorded Advance Directives Directive None Recorded Payers Insurance Date Sequence Insurance Name Policy Number Policy Tucker Covered Member ID Tucker Member ID Guarantor Name 06/30/2025 1 [place] Miguelina A Provow [id number] Miguelina A Provow 08/25/2025 2 [place] Leilani Provow [id number] Miguelina A Provow 08/02/2025 1 [place] - [place]PO) [id number] Miguelina A Provow [id number] Miguelina A Provow 06/30/2025 3 [place] Miguelina A Provow [id number] Miguelina A Provow 08/25/2025 [place] [facility] Leilani Provow [id number] Miguelina A Provow Notes Date Note Type Note Provider Name and Address Organization Details Recorded Time 5 text/html EdemaReported by PatientHPIFor context, patient reportshigh sodium dietbut reportsno prior history of deep vein thrombosisandno new medications. For location, patient reportsble. For quality, patient reportslegs swell equally. For severity, patient reportsmild. For duration, patient reportsconstant. For onset/timing, patient reportsstarted 1 months ago. For modifying factors, patient reportsdiuretic medication. For associated symptoms, patient reportsno shortness of breathandno cough.recent increase in her lasix to help with dependent edema. Her recent BMP showed a big increase in her Cr. 2.2 from baseline 1.2 Beny Vital MD [address] [place] [address], [phone], [facility] 06/04/2025 21:39:22 5 text/html EdemaReported by PatientHPIFor context, patient reportshigh sodium dietbut reportsno prior history of deep vein thrombosisandno new medications. For location, patient reportsble. For quality, patient reportslegs swell equally. For severity, patient reportsmild. For duration, patient reportsconstant. For onset/timing, patient reportsstarted 1 months ago. For modifying factors, patient reportsdiuretic medication. For associated symptoms, patient reportsno shortness of breathandno cough.recent increase in her lasix to help with dependent edema. Her recent BMP showed a big increase in her Cr. 2.2 from baseline 1.2 Beny Vital MD [address] [place] [address], [phone], [facility] 06/04/2025 21:37:03 5 text/html DiabetesReported by PatientHPIFor duration, patient reportschronic. For control, patient reportstreated with insulinandhemoglobin a1c goal is less than 6.5.sugars reviewed and fastings are [id number] Her Cr is back to baseline after stopping her lasix edema is mildly worse but overall ok off the diuretic. Beny Vital MD [address] [place] [address], [phone], [facility] 06/05/2025 17:50:57 5 text/html Generalized Anxiety DisorderReported by Patientshe reports this is overall well controlled Chronic Pain Follow-upReported by Patient Patient seen today by Dr. Maddox at [facility] she is eating a candy bar currently with multiple sugary snacks on her desk. she laughs when i asked if she is following al ow sugar diet. she understands th risks and has no intentionof changing. she reports she does have a blister on her edmond John Maddox MD [address] [place] [address], [phone], [facility] 07/18/2025 16:32:47 5 text/html Lower Urinary Tract Symptoms (LUTS)Reported by PatientHPIFor location, patient reportsbilateral. For quality, patient reportspressure. For severity, patient reportsmoderate. For onset/timing, patient reportsconstant. Not Available Not Available Not Available OBGyn Episode No OBEpisode recorded.
--- NOTE | 2025-08-31 18:01 | W.ED.ABDPA2 ---
HPI - Abdominal Pain General: Chief Complaint: Abdominal Pain Stated Complaint: no bowel movements x 8 days History of Present Illness: Patient is 65-year-old female with Parkinson's disease, DM, resides at [facility], presents from [facility] via EMS with history of 8 days of constipation. Patient states snf self-care: Suppository x 1 today. Suppository has worked in the past. It did not today. She is passing gas. She states that her abdomen is full, and tender. Denies any nausea, or vomiting. Chronically on oxycodone. Chronically with Parkinson's disease. Associated Symptoms: Reports nausea; Denies chills, fever(s) and vomiting Related Data Home Medications ?Medication ?Instructions ?Recorded ?Confirmed acetaminophen 325 mg tablet 650 mg PO QID PRN Pain 04/28/25 04/28/25 (Tylenol) aspirin 81 mg chewable tablet 81 mg PO DAILY 04/28/25 04/28/25 atorvastatin 10 mg tablet 10 mg PO BEDTIME 04/28/25 04/28/25 bisacodyl 5 mg tablet,delayed 10 mg PO DAILY PRN CONSTIPATIPON 04/28/25 04/28/25 release (Dulcolax (bisacodyl)) carbidopa 25 mg-levodopa 100 mg 1 tab PO BEDTIME 04/28/25 04/28/25 tablet carbidopa 25 mg-levodopa 100 mg 2 tab PO TID Parkinson's 04/28/25 04/28/25 tablet cholecalciferol (vitamin D3) 125 125 mcg PO DAILY 04/28/25 04/28/25 mcg (5,000 unit) capsule citalopram 10 mg tablet 10 mg PO DAILY 04/28/25 04/28/25 cyanocobalamin (vitamin B-12) 1,000 mcg PO DAILY 04/28/25 04/28/25 1,000 mcg tablet diclofenac sodium 1 % topical gel 1 ea topical QID PRN Pain 04/28/25 04/28/25 dulaglutide 3 mg/0.5 mL 3 mg SUBCUT Q7D 04/28/25 04/28/25 subcutaneous pen injector (Trulicity) folic acid 1 mg tablet 1 mg PO BID 04/28/25 04/28/25 furosemide 40 mg tablet 40 mg PO BID 04/28/25 04/28/25 furosemide 40 mg tablet 40 mg PO DAILY PRN swelling 04/28/25 04/28/25 gabapentin 600 mg tablet 600 mg PO BID 04/28/25 04/28/25 gabapentin 800 mg tablet 800 mg PO DAILY 04/28/25 04/28/25 insulin degludec 100 unit/mL (3 35 unit SUBCUT BEDTIME 04/28/25 04/28/25 mL) subcutaneous pen (Tresiba FlexTouch U-100 insulin) insulin lispro 100 unit/mL See Rx Instructions .Route .COMPLEX 04/28/25 04/28/25 subcutaneous pen (Humalog KwikPen (U-100) Insulin) insulin lispro 100 unit/mL 8 unit SUBCUT TID 04/28/25 04/28/25 subcutaneous solution (Humalog U-100 Insulin) loratadine 10 mg tablet 10 mg PO DAILY 04/28/25 04/28/25 lorazepam 0.5 mg tablet 0.5 mg PO BEDTIME PRN restlessness 04/28/25 04/28/25 magnesium hydroxide 400 mg/5 mL 30 ml PO DAILY PRN CONSTIPATION 04/28/25 04/28/25 oral suspension (Milk of Magnesia) menthol 0.44 %-zinc oxide 20.6 % See Rx Instructions .Route .COMPLEX 04/28/25 04/28/25 topical ointment (Calmoseptine) mupirocin 2 % topical ointment 1 applic topical TID 04/28/25 04/28/25 nystatin 100,000 unit/gram topical 1 applic topical PRN 04/28/25 04/28/25 powder (Nyamyc) oxycodone 10 mg tablet 10 mg PO Q8H PRN Pain 04/28/25 04/28/25 pantoprazole 40 mg tablet,delayed 40 mg PO BID 04/28/25 04/28/25 release potassium chloride 20 mEq 40 meq PO DAILY 04/28/25 04/28/25 tablet,extended release(part/cryst) promethazine 25 mg tablet 25 mg PO QID 04/28/25 04/28/25 sodium phosphates 19 gram-7 118 ml [place] DAILY PRN CONSTIPATION 04/28/25 04/28/25 gram/118 mL enema (Fleet Enema) spironolactone 50 mg tablet 50 mg PO DAILY 04/28/25 04/28/25 tizanidine 4 mg tablet 4 mg PO DAILY 04/28/25 04/28/25 Previous Rx's ?Medication ?Instructions ?Recorded lactulose 10 gram/15 mL oral 30 ml PO Q4H 48 hours #360 mL 08/31/25 solution Allergies Allergy/AdvReac Type Severity Reaction Status Date / Time ampicillin Allergy Unknown Verified 04/27/25 21:09 mushroom Allergy Unknown Verified 04/27/25 21:09 Review of Systems General: Reports: 10 or more systems reviewed and unremarkable except in HPI and below Const: Denies: fever(s), chills or malaise Card: Denies: chest pain or palpitations Resp: Denies: dyspnea or productive cough GI: Reports: abdominal pain and nausea; Denies: vomiting : Denies: flank pain or difficulty voiding Musc: Denies: neck pain or back pain Neuro: Denies: headache(s) or numbness in extremities Psych: Denies: anxiety or depression PFS ED PFSH: Medical History (Updated 08/31/25 @ 18:21 by VIRGINIA Hatch) CKD (chronic kidney disease) Parkinson's disease Physical Exam Const: COMMON NORMALS: no acute distress and patient oriented x3 NUTRITIONAL APPEARANCE: obese HENMT: COMMON NORMALS: normocephalic and atraumatic HEAD & SCALP: normocephalic and atraumatic Neck/C-Spine: COMMON NORMALS: full ROM and no lymphadenopathy Lymph: LYMPHATIC: no lymphadenopathy noted Chest: COMMONS NORMALS: normal inspection of the chest and normal palpation of entire chest wall Cardio: COMMON NORMALS: regular rate and regular rhythm RATE: regular rate RHYTHM: regular rhythm GI: COMMON NORMALS: no masses and no bruits AUSCULTATION: Yes normoactive bowel sounds PALPATION: Yes Firmness to palpation present (GI) and Yes Tenderness to palpation present (GI) Details: other (diffuse) : COMMON NORMALS: Yes no CVA tenderness BLADDER/KIDNEY EXAM: Yes no CVA tenderness Back/Pelvis: COMMON NORMALS: no CVA tenderness Extremity: COMMON NORMALS: normal to inspection, full ROM and capillary refill normal Neuro: COMMON NORMALS: patient oriented x3 and moves all extremities Psych: COMMON NORMALS: mental status grossly normal, Normal thought process present and cooperative THOUGHT PROCESS: Normal thought process present Course Vital Signs: Vital signs: Vital Signs Temperature 99.0 F 08/31/25 17:53 Pulse Rate 80 08/31/25 18:42 Respiratory Rate 18 08/31/25 17:53 Blood Pressure 129/63 08/31/25 18:42 Pulse Oximetry 94 08/31/25 18:42 Oxygen Delivery Me thod Room Air 08/31/25 17:53 MDM - Abdominal Pain Medical Decision Making Patient is a 65-year-old female that chronically resides at the snf locally presents to the ED with 8 days of no BM. She complains of abdominal fullness, and epigastric discomfort associated with the fullness. She is passing gas. X-ray is consistent with obstipation/large fecal burden. Will give lactulose, send additional doses for tonight for the snf, send lactulose to the pharmacy, and place patient on clear liquid diet. Explained to patient. She states understanding. Medical Records I reviewed the patient's medical records. Lab Data Labs/Radiology: Radiology Impressions Abdomen X-Ray 08/31/25 17:42 IMPRESSION: Large fecal burden. All radiology interpretation(s) finalized by discharge Discharge Plan Discharge Patient Disposition: Home Clinical Impression: Constipation by delayed colonic transit Condition: Stable Prescriptions: New lactulose 10 gram/15 mL solution 30 ml PO Q4H 2 Days Qty: 360 0RF Rx Instructions: until desired laxative effect No Action atorvastatin 10 mg tablet 10 mg PO BEDTIME citalopram 10 mg tablet 10 mg PO DAILY lorazepam 0.5 mg tablet 0.5 mg PO BEDTIME PRN (Reason: restlessness) aspirin 81 mg tablet,chewable 81 mg PO DAILY carbidopa-levodopa 25-100 mg tablet 2 tab PO TID carbidopa-levodopa 25-100 mg tablet 1 tab PO BEDTIME cholecalciferol (vitamin D3) 125 mcg (5,000 unit) capsule 125 mcg PO DAILY loratadine 10 mg tablet 10 mg PO DAILY insulin lispro [Humalog KwikPen Insulin] 100 unit/mL insulin pen See Rx Instructions .ROUTE .COMPLEX Rx Instructions: With Meals per sliding scale .If blood sugar is less than 70 ,call . 150-200=0 units 201-250=2 units 251-300=4 units 301-350=6 units 351-400=8 units If blood sugar is greater than 400 give 8 unuts if over 400 call 3 menthol-zinc oxide [Calmoseptine] 0.44-20.6 % ointment See Rx Instructions .ROUTE .COMPLEX Rx Instructions: Apply topically at every Shift as directed for preventative. furosemide 40 mg tablet 40 mg PO DAILY PRN (Reason: swelling) furosemide 40 mg tablet 40 mg PO BID acetaminophen [Tylenol] 325 mg Tablet 650 mg PO QID PRN (Reason: Pain) gabapentin 600 mg tablet 600 mg PO BID tizanidine 4 mg tablet 4 mg PO DAILY cyanocobalamin (vitamin B-12) 1,000 mcg tablet 1,000 mcg PO DAILY potassium chloride 20 mEq tablet,ER particles/crystals 40 meq PO DAILY magnesium hydroxide [Milk of Magnesia] 400 mg/5 mL Suspension 30 ml PO DAILY PRN (Reason: CONSTIPATION ) Rx Instructions: gIVE IF NO bOWEL MOVEMENT IN 3 DAYS gabapentin 800 mg tablet 800 mg PO DAILY pantoprazole 40 mg tablet,delayed release (DR/EC) 40 mg PO BID promethazine 25 mg tablet 25 mg PO QID Fleet Enema 19-7 gram/118 mL Enema 118 ml [place] DAILY PRN (Reason: CONSTIPATION ) Rx Instructions: gIVE IF NO Relief from M.O.M. and dulcolax folic acid 1 mg tablet 1 mg PO BID bisacodyl [Dulcolax (bisacodyl)] 5 mg Tablet,Delayed Release (Dr/Ec) 10 mg PO DAILY PRN (Reason: CONSTIPATIPON) Rx Instructions: gIVE IF NO RESULTS FROM M.O.M. mupirocin 2 % ointment 1 applic TOPICAL TID nystatin [Nyamyc] 100,000 unit/gram powder 1 applic TOPICAL PRN insulin lispro [Humalog U-100 Insulin] 100 unit/mL solution 8 unit SUBCUT TID spironolactone 50 mg tablet 50 mg PO DAILY diclofenac sodium 1 % gel 1 ea TOPICAL QID PRN (Reason: Pain) oxycodone 10 mg tablet 10 mg PO Q8H PRN (Reason: Pain) insulin degludec [Tresiba FlexTouch U-100] 100 unit/mL (3 mL) insulin pen 35 unit SUBCUT BEDTIME Trulicity 3 mg/0.5 mL pen injector 3 mg SUBCUT Q7D Rx Instructions: On Fridays Discharge Orders: Discharge ED (Routine); Ordered 08/31/25 Ordered By: Maite Black Referrals: Berta Barrett MD [Primary Care Provider, Family Practice] Discharge Diet: Clear Liquid Discharge Activity: Resume usual activity Patient Instructions: Constipation (ED), Patient Portal & Claudio Instructions Activity Restrictions/Additional Instructions: - Clear liquid diet only until symptoms resolve - Lactulose will be sent home x 2 doses, the rest has been sent to her pharmacy. Give this every 4 hours until her symptoms resolve. - You may continue the suppository. - Continue her carbidopa levodopa. - Caution on oxycodone as this will make the issues worse. - Appropriate amount of fluid intake will help as well. - Return to ED with worsening symptoms or inability to have bowel movement. Thank you for choosing [facility] for your healthcare needs today. You have been screened and evaluated and felt safe for discharge. Health conditions do change or evolve sometimes and as such it is important that you follow up with your Primary Doctor to be re checked, 3-5 days is a general good time frame for follow up. You are always welcome to return to the ED for re assessment if your symptoms are worsening or you have new concerns Print Language: Mongolian Coding Level of Care Code ED Processing Manager for Taurus Mccarthy
[2025-08-31] MEDS: lactulose oral liq 20 gm/30 mL UDC 30 GM PO ×3 (18:40)
[2025-08-31 18:42] VITALS: BP 129/63; PULSE 80; O2SAT 94
[2025-08-31 19:05] VITALS: BP 124/78; PULSE 77; O2SAT 96
[2025-08-31 19:40] VITALS: BP 121/74; PULSE 77; O2SAT 96
[2025-08-31 20:56] VITALS: BP 130/89; PULSE 79; O2SAT 96
== END 2025-08-31 20:57 | disposition home or self-care (01) ==
PROVIDERS: Emergency Provider Physician Assistant; PCP Family Medicine
DX: K59.01 Slow transit constipation (principal); Z79.85 Long-term (current) use of injectable non-insulin antidiabetic drugs; Z79.82 Long term (current) use of aspirin; Z79.4 Long term (current) use of insulin; E11.22 Type 2 diabetes mellitus with diabetic chronic kidney disease; N18.9 Chronic kidney disease, unspecified
CPT/HCPCS: 74018; 99283; J9999

== ENCOUNTER 2025-11-07 22:34 | Emergency (ER) | payer MEDICARE, MEDICAID, SELFPAY ==
[2025-11-07 22:34] VITALS: BP 154/61; PULSE 92; RESP 25; TEMP 39.4; O2SAT 94; BMI 39.9
--- NOTE | 2025-11-07 22:35 | XRR_ITS ---
PROCEDURE INFORMATION: Exam: XR Chest Exam date and time: 11/07/2025 10:39 PM Age: 65 years old Clinical indication: Other: AMS TECHNIQUE: Imaging protocol: Radiologic exam of the chest. Views: 1 view. COMPARISON: CR XR chest 1V portable [id number] 09/29/2023 3:22 PM FINDINGS: Lungs: Unremarkable. No consolidation. Pleural spaces: No focal consolidation, pleural effusion, or pneumothorax. Heart/Mediastinum: Unremarkable. No cardiomegaly. Bones/joints: Right shoulder reverse arthroplasty. XR/XR chest 1V portable [id number] IMPRESSION: No focal consolidation, pleural effusion, or pneumothorax.
--- NOTE | 2025-11-07 22:36 | ECG_ITS ---
[email or web address] Date: 2025-11-07 Pat Name: Miguelina Goncalves Department: Room: Gender: Female Cell Builder: : [id number] Requested By: Paola Asif Order Number: [id number] MD: Hansel Alexander M.D. Measurements Intervals [place] Rate: 92 P: 62 PA: 148 QRS: 45 QRSD: 84 T: 17 QT: 356 QTc: 442 Interpretive Statements SINUS RHYTHM Compared to ECG 10/02/2023 23:14:58 No significant changes Electronically Signed On 11-09-2025 16:04:19 PINBALL MACHINE REPAIRER by Hansel Alexander M.D. [email or web address] [id number]
--- NOTE | 2025-11-07 22:41 | W.ED.GENADLT ---
HPI - General Adult General: Chief complaint: Altered Mental Status Stated complaint: ams / possible uti Time Seen by Provider: 11/07/25 22:34 History of Present Illness: 65yo F with a past medical history significant for advanced Parkinson's disease, DM complicated by diabetic neuropathy, chronic UTIs, HLD, HTN [facility] for cc/of AMS, elevated temperature. Per prison, she's been more altered than usual and has been moaning. On exam, history is limited but patient is able to state her name, answer yes or no questions. She denies chest pain, shortness of breath, abdominal pain, nausea or vomiting. Related Data Home Medications ?Medication ?Instructions ?Recorded ?Confirmed aspirin 81 mg tablet,delayed 81 mg PO DAILY@01/31/20 06/28/24 release (Adult Low Dose Aspirin) gabapentin 800 mg tablet 800 mg PO DAILY@01/31/20 06/28/24 aspirin 81 mg chewable tablet 81 mg PO DAILY 08/06/20 08/06/20 carbidopa 25 mg-levodopa 100 mg 1 tab PO QID 08/06/20 08/06/20 tablet citalopram 20 mg tablet 20 mg PO DAILY 08/06/20 08/06/20 exenatide microspheres 2 mg/0.65 2 mg SUBCUT Q7D 08/06/20 08/06/20 mL subcutaneous pen injector (Bydureon) gabapentin 600 mg tablet See Rx Instructions .Route .COMPLEX 08/06/20 08/06/20 gabapentin 800 mg tablet 800 mg PO BEDTIME 08/06/20 08/06/20 glipizide 10 mg tablet 10 mg PO DAILY 08/06/20 08/06/20 lisinopril 10 mg tablet 10 mg PO DAILY 08/06/20 08/06/20 metformin 1,000 mg tablet 1,000 mg PO BID 08/06/20 08/06/20 sitagliptin phosphate 50 mg tablet 50 mg PO DAILY 08/06/20 08/06/20 (Januvia) cholecalciferol (vitamin D3) 125 125 mcg PO DAILY@01/22/22 06/28/24 mcg (5,000 unit) tablet (Vitamin D3) bisacodyl 5 mg tablet,delayed 10 mg PO DAILY PRN Constipation 06/17/22 06/28/24 release (Dulcolax (bisacodyl)) magnesium hydroxide 400 mg/5 mL 30 ml PO DAILY PRN Constipation 06/17/22 06/28/24 oral suspension (Milk of Magnesia) sodium phosphates 19 gram-7 118 ml [place] DAILY PRN Constipation 06/17/22 06/28/24 gram/118 mL enema (Fleet Enema) acetaminophen 325 mg tablet 650 mg PO Q6H PRN Pain 06/23/22 06/28/24 (Tylenol) bisacodyl 10 mg rectal suppository 10 mg [place] DAILY PRN Constipation 06/23/22 06/28/24 (Dulcolax (bisacodyl)) hydrocodone 5 mg-acetaminophen 325 1 - 2 tab PO Q6H PRN Pain 08/17/22 06/28/24 mg tablet carbidopa 25 mg-levodopa 100 mg 1 tab PO BEDTIME 09/06/23 06/28/24 tablet cyclobenzaprine 5 mg tablet 5 mg PO BID PRN Muscle Spasm 09/06/23 06/28/24 dulaglutide 3 mg/0.5 mL 3 mg SUBCUT Q7D 09/06/23 06/28/24 subcutaneous pen injector (Trulicity) insulin degludec 100 unit/mL (3 35 unit SUBCUT BEDTIME 09/06/23 06/28/24 mL) subcutaneous pen (Tresiba FlexTouch U-100 insulin) insulin lispro 100 unit/mL See Rx Instructions .Route .COMPLEX 09/06/23 06/28/24 subcutaneous pen (Humalog KwikPen (U-100) Insulin) ketoconazole 1 % shampoo (Nizoral See Rx Instructions .Route .COMPLEX 09/06/23 06/28/24 A-D) loratadine 10 mg tablet (Claritin) 10 mg PO DAILY@08 09/06/23 06/28/24 nystatin 100,000 unit/gram topical See Rx Instructions .Route .COMPLEX 09/06/23 06/28/24 powder citalopram 10 mg tablet 10 mg PO DAILY 09/29/23 06/28/24 collagenase clostridium histo. 250 See Rx Instructions .Route .COMPLEX 10/03/23 06/28/24 unit/gram topical ointment (Santyl) morphine concentrate 100 mg/5 mL See Rx Instructions .Route .COMPLEX 10/03/23 06/28/24 (20 mg/mL) oral solution sodium chloride 0.9 % (flush) See Rx Instructions .Route .COMPLEX 10/03/23 06/28/24 (Normal Saline Flush 0.9 % injection syringe) acetaminophen 325 mg tablet 650 mg PO QID PRN Pain 04/28/25 04/28/25 (Tylenol) aspirin 81 mg chewable tablet 81 mg PO DAILY 04/28/25 04/28/25 atorvastatin 10 mg tablet 10 mg PO BEDTIME 04/28/25 04/28/25 bisacodyl 5 mg tablet,delayed 10 mg PO DAILY PRN CONSTIPATIPON 04/28/25 04/28/25 release (Dulcolax (bisacodyl)) carbidopa 25 mg-levodopa 100 mg 1 tab PO BEDTIME 04/28/25 04/28/25 tablet carbidopa 25 mg-levodopa 100 mg 2 tab PO TID Parkinson's 04/28/25 04/28/25 tablet cholecalciferol (vitamin D3) 125 125 mcg PO DAILY 04/28/25 04/28/25 mcg (5,000 unit) capsule citalopram 10 mg tablet 10 mg PO DAILY 04/28/25 04/28/25 cyanocobalamin (vitamin B-12) 1,000 mcg PO DAILY 04/28/25 04/28/25 1,000 mcg tablet diclofenac sodium 1 % topical gel 1 ea topical QID PRN Pain 04/28/25 04/28/25 dulaglutide 3 mg/0.5 mL 3 mg SUBCUT Q7D 04/28/25 04/28/25 subcutaneous pen injector (Trulicity) folic acid 1 mg tablet 1 mg PO BID 04/28/25 04/28/25 furosemide 40 mg tablet 40 mg PO BID 04/28/25 04/28/25 furosemide 40 mg tablet 40 mg PO DAILY PRN swelling 04/28/25 04/28/25 gabapentin 600 mg tablet 600 mg PO BID 04/28/25 04/28/25 gabapentin 800 mg tablet 800 mg PO DAILY 04/28/25 04/28/25 insulin degludec 100 unit/mL (3 35 unit SUBCUT BEDTIME 04/28/25 04/28/25 mL) subcutaneous pen (Tresiba FlexTouch U-100 insulin) insulin lispro 100 unit/mL See Rx Instructions .Route .COMPLEX 04/28/25 04/28/25 subcutaneous pen (Humalog KwikPen (U-100) Insulin) insulin lispro 100 unit/mL 8 unit SUBCUT TID 04/28/25 04/28/25 subcutaneous solution (Humalog U-100 Insulin) loratadine 10 mg tablet 10 mg PO DAILY 04/28/25 04/28/25 lorazepam 0.5 mg tablet 0.5 mg PO BEDTIME PRN restlessness 04/28/25 04/28/25 magnesium hydroxide 400 mg/5 mL 30 ml PO DAILY PRN CONSTIPATION 04/28/25 04/28/25 oral suspension (Milk of Magnesia) menthol 0.44 %-zinc oxide 20.6 % See Rx Instructions .Route .COMPLEX 04/28/25 04/28/25 topical ointment (Calmoseptine) mupirocin 2 % topical ointment 1 applic topical TID 04/28/25 04/28/25 nystatin 100,000 unit/gram topical 1 applic topical PRN 04/28/25 04/28/25 powder (Nyamyc) oxycodone 10 mg tablet 10 mg PO Q8H PRN Pain 04/28/25 04/28/25 pantoprazole 40 mg tablet,delayed 40 mg PO BID 04/28/25 04/28/25 release potassium chloride 20 mEq 40 meq PO DAILY 04/28/25 04/28/25 tablet,extended release(part/cryst) promethazine 25 mg tablet 25 mg PO QID 04/28/25 04/28/25 sodium phosphates 19 gram-7 118 ml [place] DAILY PRN CONSTIPATION 04/28/25 04/28/25 gram/118 mL enema (Fleet Enema) spironolactone 50 mg tablet 50 mg PO DAILY 04/28/25 04/28/25 tizanidine 4 mg tablet 4 mg PO DAILY 04/28/25 04/28/25 Previous Rx's ?Medication ?Instructions ?Recorded potassium chloride 10 mEq 10 meq PO BID #20 caps 08/06/20 capsule,extended release gabapentin 600 mg tablet 600 mg PO BID #60 tabs 11/06/21 Wheeled walker with seat #1 ea 10/06/22 cyanocobalamin (vitamin B-12) 1,000 mcg PO DAILY #30 tabs 09/11/23 1,000 mcg tablet folic acid 1 mg tablet 1 mg PO BID #60 tabs 09/11/23 furosemide 40 mg tablet 40 mg PO DAILY PRN Edema #14 tabs 10/04/23 polyethylene glycol 3350 17 gram 17 g PO DAILY #90 ea 10/04/23 oral powder packet cefdinir 300 mg capsule 300 mg PO BID #14 caps 06/18/24 promethazine 25 mg tablet 25 mg PO Q6H PRN nausea and 06/18/24 vomiting #20 tabs carbidopa 25 mg-levodopa 100 mg 2 tab PO TID@08,12,16 #180 tabs 06/28/24 tablet (Sinemet) Allergies Allergy/AdvReac Type Severity Reaction Status Date / Time ampicillin Allergy Unknown Rash and Verified 10/23/25 15:27 Itching mushroom Allergy Unknown Verified 10/23/25 15:27 [facility] ED PFSH: Medical History CKD (chronic kidney disease) Parkinson's disease DNR (do not resuscitate) From [facility] paperwork. Metabolic encephalopathy Sepsis Cellulitis Cellulitis UTI (urinary tract infection) Parkinson's disease Diabetes mellitus Hypertension Hyperlipidemia History of cataract Diabetic neuropathy Surgical History History of hand surgery Family History Other Cancer Diabetes Social History Smoking and tobacco/nicotine status: never used tobacco/nicotine Alcohol intake: never Substance/Drug Use: never Physical Exam Narrative: EXAM NARRATIVE: Vitals are reviewed. Patient is awake, able to answer some yes or no questions and able to state her name. Patient is hypertensive, not significantly tachycardic but she is febrile and mildly tachypneic. She is placed on a nasal cannula for mild hypoxia. Lung exam demonstrates crackles in the right lung. Abdomen is distended, not firm but patient states that there is pain with palpation of the abdomen. +Umbilical hernia that is soft. No LE edema or asymmetry. Course Vital Signs: Vital signs: Vital Signs Temperature 103.0 F H 11/07/25 22:34 Pulse Rate 92 11/07/25 22:34 Respiratory Rate 25 H 11/07/25 22:34 Blood Pressure 154/61 11/07/25 22:34 Pulse Oximetry 94 11/07/25 22:34 Oxygen Delivery Me thod Nasal Cannula 11/07/25 22:34 Oxygen Flow Rate 2 11/07/25 22:34 MDM - General Adult Medical Decision Making 65yo F w/cc of worsened mental status, fever, h/o frequent UTIs. Differential diagnosis includes, but is limited to, COVID-19/influenza, pneumonia, intra-abdominal infection, urinary tract infection, pyelonephritis, sepsis, other. On exam, patient is normotensive, not tachycardic but she is febrile with a temperature of 103. She was placed on nasal cannula for mild hypoxia. Patient was treated with IV fluids, IV Zosyn, IV Ofirmev. Patient was evaluate CBC, CMP, lactic acid, procalcitonin, troponin, COVID and flu screen, UA, blood culture, chest x-ray. Added CT abd/pelvis for pain of abd on exam. Patient has a normal white blood cell count and a normal lactic acid. Creatinine is elevated but at baseline. Patient does not have actionable electrolyte abnormalities or derangements. Patient has normal LFTs. Troponin is elevated at 79 with a positive delta of 15. Repeat EKG does not demonstrate ST segment elevation, evolution or ischemic change, presentation is consistent with NSTEMI, likely in the setting of urosepsis. Patient was started on a heparin drip. UA is positive for infection. Based on previous cultures, patient has previously been resistant to multiple organisms, given 2g IV meropenem. CT scan shows: IMPRESSION: 1. Obstructing 2 cm left UPJ stone. Mild hydronephrosis of the left kidney. Thickening of the left renal pelvis with periureteral fat stranding. Infected stone can not be excluded. 2. Moderate fecal retention, correlate for constipation. Patient has an infected, obstructed stone with urosepsis. She will require transfer to higher level care facility with urology coverage. Transferred in a stablilized condition. All radiology interpretation(s) finalized by discharge EKG Data EKG 1: Interpretation: Sinus rhythm with a heart rate of 92, normal axis, normal intervals, no STEMI. EKG 2: Interpretation: Normal sinus rhythm with a heart rate of 83, normal axis, normal intervals, no STEMI, no evolution from previous EKG. Computer generated interpretation: Chest X-Ray 11/07/25 22:35 IMPRESSION: No focal consolidation, pleural effusion, or pneumothorax. Abdomen/Pelvis CT 11/07/25 23:09 IMPRESSION: 1. Obstructing 2 cm left UPJ stone. Mild hydronephrosis of the left kidney. Thickening of the left renal pelvis with periureteral fat stranding. Infected stone can not be excluded. 2. Moderate fecal retention, correlate for constipation. Discharge Plan Discharge Patient Disposition: Xfer Short-Term Hosp Clinical Impression: Hydronephrosis with urinary obstruction due to renal calculus, Sepsis, Non-ST elevation SD (NSTEMI) Condition: Stable Referrals: Berta Barrett MD [Primary Care Provider, Family Practice] Patient Instructions: Altered Mental Status (ED) Print Language: Divehi Coding Level of Care Code ED Plane Tableman for Taurus Mccarthy
--- OUTSIDE RECORDS SUMMARY | 2025-11-07 22:45 | XMS_ITS | Continuity of Care Document ---
Author Organization [facility] Aj Wolf, [facility] ([facility]) Address [address] [place] [address] Assessment No assessment recorded. Plan of Treatment [...] Organization Details Recorded Time Parkinso n's disease 68504803 Active 2023 [facility] 12:[facility] Anxiety 48923589 Active 2023 [facility] 5 15:18:13 Chronic kidney disease stage 3B 339105657 Active 2023 [facility] 16:24:46 Edema 932700384 Completed 202301/04/2025 Removal Reason: resolved [facility] 16:25:12 Chronic pain 30015583 Active 2023 [facility] 5 16:24:51 Pain of multiple joints 23576388 Active 2023 DEVI MONICAJOHNATHON null, [facility] 5 16:25:16 Pain of left shoulder joint [id number] 510597 Completed 202301/04/2025 Removal Reason: resolved DEVI OLMEDO null, [facility] 5 16:25:28 Primary insomnia 8660565 Active 2024 KENDRICK LAWRENCE null, [facility] 5 09:49:23 Bilatera l lower limb edema 763994192 Active 2024 KENDRICK LAWRENCE null, [facility] 5 09:49:23 Acute kidney injury 43929897 Active 2024 DEVI OLMEDO null, [facility] 5 13:12:10 Type 2 diabetes mellitus 22386121 Active 2024 DEVI OLMEDO null, [facility] 12:50:02 Blister of foot 425493038 Active 2024 DEVI OLMEDO null, [facility] 12:52:39 Retentio n of urine 125617243 Active 2024 DEVI OLMEDO null, [facility] 12:32:25 Constipa tion 36349981 Active 2024 DEVI HONORIO null, [facility] 18:09:30 Vaginal discharg e 285251420 Active 2024 DEVI OLMEDO null, [facility] 12:20:04 Chronic constipa tion 709340064 Active 2024 [facility] 12:20:11 Problem Notes None recorded. Procedures Surgical History Date Name Laterality Status Provider Name and Address Organization Details Recorded Time tonsillectomy completed KENDRICK LAWRENCE [facility] 05/16/2025 09:54:05 Imaging Results None recorded. Procedure Notes None recorded. Medical Equipment None Reported. Allergies Allergen ID Allergen Name Allergen Category Reaction Reaction Severity Criticality Documentation Date Start Date Code Code System Note Provider Name and Address Organization Details Recorded Time 27825 ampicilli n medicatio n Not available Not available Not available 06/06/2023 733 RxNorm [facility] 09:44:08 22550 cultivate d mushroom extract food,medi cation Not available Not available Not available 10/04/20252024 14502 17 RxNorm Not Available erick - External Data Service - prod 15:11:52 Medications Name Sig Start Date Stop Date [...] 0; Recorded 09/16/20 22 1:04PM by Emerald Shane, RN, Office Visit; Not Available Not Available [...] ROUTE 3 TIMES PER DAY until healed active Not Available Not Available No t Available sodium chloride 0.9 % intraveno us solution [...] Available lactulose 10 gram/15 mL oral solution active Not Available Not Available Not Available oxycodone every four hours, as needed 05/16 completed 0; Recorded 09/16/20 22 1:04PM by Emerald Shane RN, Office Visit; Not Available Not Available Not Available carbidopa -levodopa three times daily 05/16 completed 2 tabs in am and noon 1 tab at hs; 0; Recorded 09/16/20 22 1:04PM by Emerald Shane RN, Office Visit; Not Available Not Available Not Available Vitamin D3 daily 05/16 completed 0; Recorded 09/16/20 22 1:04PM by Emerald Shane RN, Office Visit; Not Available Not Available Not Available gabapenti n two times daily 05/16 completed 0; Recorded 09/16/20 22 1:04PM by Emerald Shane RN, Office Visit; Not Available Not Available Not Available Novolog U-100 Insulin aspart with meals 05/16 completed recorded , not sent to pharmacy . dose increase ; 10929; Recorded 09/16/20 1:08PM by Emerald Shane RN (Prema carey through Karl Olmedo DO), Office Visit; Refill Quantity : 0; Not Available Not Available Not Available Januvia 100 mg tablet daily 05/16 completed 0; Recorded 09/16/20 22 1:04PM by Eemrald Shane RN, Office Visit; Not Available Not [...] mass index (BMI) Body weight Oxygen saturation Heart rate Respiratory rate Body temperature Systolic And Diastolic Provider Name and Address Organization Details Last Updated DateTime 157.48 cm 39.3 kg/m2 42798.3 6 g 97 % 77 /min 17 /min 97.9 [degF] 128/73 mm[Hg] DEVI OLMEDO [facility] 5 15:16:36 Social History Question Answer Notes LastModified by [employer] Details LastModified Time Tobacco Smoking Status Unknown If Ever [facility] 05/16/2025 09:52:40 Where Do You Live? [facility] Information not available 05/16/2025 What Was The Date Of Your Most Recent Tobacco Screening? 05/16/2025 Information not available 05/16/2025 Sex: Unknown Functional Status Question Answer Note LastModified by [employer] Details LastModified Time Do you use any illicit or recreational drugs? No Information not available 05/16/2025 What is your level of alcohol consumption? None Information not available 05/16/2025 Mental Status None recorded. Family History Nothing Reported. Medical History No medical history recorded. Gynecological HistoryNo gynecological history recorded. Obstetrics History GPAL:G 0 P 0 0 0 0 Immunizations Vaccine Type Date Status Note Provider Nam e and Address Organization Details Recorded Time Influenza, high-dose, trivalent, PF 6 completed Not Available [facility] 10/04/2025 14:39:42 zoster recombinant 8 completed Not Available [facility] 10/04/2025 14:39:42 zoster recombinant 8 completed Not Available [facility] 10/04/2025 14:39:42 Tdap 8 completed Not Available [facility] 10/04/2025 14:39:42 COVID-19, mRNA, LNP-S, PF, 100 mcg/0.5mL dose or 50 mcg/0.25mL dose 1 completed Not Available [facility] 10/04/2025 14:39:42 COVID-19, mRNA, LNP-S, PF, 100 mcg/0.5mL dose or 50 mcg/0.25mL dose 1 completed Not Available [facility] 10/04/2025 14:39:42 COVID-19, mRNA, LNP-S, PF, 100 mcg/0.5mL dose or 50 mcg/0.25mL dose 2 completed Not Available [facility] 10/04/2025 14:39:42 COVID-19, mRNA, LNP-S, bivalent, PF, 50 mcg/0.5 mL or 25mcg/0.25 mL dose 2 completed Not Available [facility] 10/04/2025 14:39:42 COVID-19, mRNA, LNP-S, PF, francia-sucrose, 30 mcg/0.3 mL 4 completed Not Available [facility] 10/04/2025 14:39:42 Past Encounters Encounter ID Performer Location Encounter Start Date Encounter Closed Date Diagnosis/Indication Diagnosis SNOMED-CT Code Diagnosis ICD10 Code Diagnosis IMO Codes Diagnosis Note [id number] DILLON MADDOX PA-C [facility] ([facility]) [address] [place] [phone] 09/06/2025 17:42:30 10/17/2025 13:33:21 Seen in department 545274958 Z76.89 [id number] ER records reviewed. Constipation 84490132 K5 9.09 774195 MAKE LACTULOSE PRNpush fluids and increase activity. [id number] DILLON MADDOX PA-C [facility] ([facility]) [address] [place] [phone] 09/13/2025 12:07:35 10/17/2025 17:14:17 Chronic constipation 843533429 K59.09 564578 MAKE LACTULOSE PRN she is often refusing. Urinary sy mptom change 360808291 R39.449 7775141 ua with c&s [id number] John Maddox MD [facility] ([facility]) [address] [place], [place] [phone] 09/19/2025 08:05:07 10/17/2025 12:39:38 Type 2 diabetes mellitus 47373189 E11.9 Z79.4 [id number] DILLON MADDOX PA-C [facility] ([facility]) [address] [place] [phone] 10/04/2025 14:39:32 11/06/2025 08:02:05 Anxiety 97797263 F41.9 57527 xanax .5mg @hs scheduled. more relaxed and feeling better with this dose.she is already on a SSRI. Parkinson's disease 4904 9000 G20.A1 [id number] Health Concerns Section Related Observation LastModified by Organization Detai ls LastModified Time None Recorded Concern Status LastModified by Organization Details LastModified Time None Recorded Payers Encounter Date Sequence Insurance Name Policy Number Policy Tucker Covered Member ID Tucker Member ID Guarantor Name 10/04/2025 1 [id number] - PPO) [id number] Miguelina A Provow [id number] Miguelina A Provow 10/04/2025 2 [place] Leilani Provow [id number] Miguelina Gus Provow Notes Date Note Type Note Provider Name and Address Organization Details Recorded Time 10/04/2025 text/html Anxiety/Depressi onRepor salina by PatientHPIFor severity, patient reportsincreased anxietybut reportsdenies suicidal ideations,able to maintain relationships, anddoes not interfere with activities of daily living. For duration, patient reportschronic. For onset/timing, patient reportsgradualandfreque nt. For modifying factors, patient reportsmedications as directed. staff reports pt is doing much better schedule with a later evening benzo. She is more relaxed. not requesting a person in her room every 5 min.Seems to be resting well. John Maddox MD [address] [place] [address], [phone], [facility] 11/05/2025 21:55:43 OBGyn Episode No OBEpisode recorded.
--- OUTSIDE RECORDS SUMMARY | 2025-11-07 22:46 | XMS_ITS | Continuity of Care Document ---
Author Organization [facility] ([facility]) Address [address] [place] [address] Insurance Providers Payer Plan Claims Address Claims Phone Policy Number Group Number Relation Employer Guarantor Name Guarantor Guarantor Address Guarantor Phone [employer] ADV [id number] Self Miguelina A Provow [address] [place], [place] [address] MEDIC AID [id number] Self Miguelina A Provow [address] [place] [id number] WPS MEDIC ARE [id number] Self Miguelina A Provow [address] [place] [id number] Problems Condition ICD9 code ICD10 code SNOMED [...] kidney disease, stage 3b N18.32 04/13/2023 Active correction (current) use of aspirin Z79.82 02/03/2022 Active Abnormal weight loss R63.4 08/31/2023 Active Type 2 diabetes mellitus with diabetic chronic kidney disease E11.22 01/05/2023 Active Type 2 diabetes mellitus with diabetic neuropathy, unspecified E11.40 02/03/2022 Active 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 Refere nce Range Blood chemistry[[id number]] Glucose [Mass/volume] in Serum or Plasma [2345-7] 11/07/2025 05:09 PM 169 mg/dL N Blood chemistry[[id number]] Glucose [Mass/volume] in Serum or Plasma [2345-7] 11/07/2025 10:19 AM 178 mg/dL N Blood chemistry[[id number]] Glucose [Mass/volume] in Serum or Plasma [2345-7] 11/07/2025 01:36 PM 124 mg/dL N Blood chemistry[[id number]] Glucose [Mass/volume] in Serum or Plasma [2345-7] 11/06/2025 01:40 PM 166 mg/dL N COVID-19 Test Viral Antigen null flavor [null] 11/06/2025 06:00 PM See note NEG COVID-19 Test Viral Antigen Blood chemistry[[id number]] Glucose [Mass/volume] in Serum or Plasma [2345-7] 11/06/2025 04:49 PM 357 mg/dL N Blood chemistry[[id number]] Glucose [Mass/volume] in Serum or Plasma [2345-7] 11/06/2025 09:50 AM 301 mg/dL N Blood chemistry[[id number]] Glucose [Mass/volume] in Serum or Plasma [2345-7] 11/06/2025 01:46 PM 225 mg/dL N Blood chemistry[[id number]] Glucose [Mass/volume] in Serum or Plasma [2345-7] 11/05/2025 03:44 PM 210 mg/dL N Blood chemistry[[id number]] Glucose [Mass/volume] in Serum or Plasma [2345-7] 11/05/2025 05:06 PM 166 mg/dL N Blood chemistry[[id number]] Glucose [Mass/volume] in Serum or Plasma [2345-7] 11/05/2025 09:44 AM 212 mg/dL N Blood chemistry[[id number]] Glucose [Mass/volume] in Serum or Plasma [2345-7] 11/05/2025 01:22 PM 178 mg/dL N Blood chemistry[[id number]] Glucose [Mass/volume] in Serum or Plasma [2345-7] 11/04/2025 03:54 PM 171 mg/dL N Blood chemistry[[id number]] Glucose [Mass/volume] in Serum or Plasma [2345-7] 11/04/2025 05:14 PM 183 mg/dL N Blood chemistry[[id number]] Glucose [Mass/volume] in Serum or Plasma [2345-7] 11/04/2025 10:08 AM 229 mg/dL N Blood chemistry[[id number]] Glucose [Mass/volume] in Serum or Plasma [2345-7] 11/04/2025 01:22 PM 175 mg/dL N COVID-19 Test Viral PCR null flavor [null] 11/03/2025 06:00 PM See note NEG COVID-19 Test Viral PCR Blood chemistry[[id number]] Glucose [Mass/volume] in Serum or Plasma [2345-7] 11/03/2025 03:33 PM 210 mg/dL N Blood chemistry[[id number]] Glucose [Mass/volume] in Serum or Plasma [2345-7] 11/03/2025 05:12 PM 182 mg/dL N Blood chemistry[[id number]] Glucose [Mass/volume] in Serum or Plasma [2345-7] 11/03/2025 10:04 AM 180 mg/dL N Blood chemistry[[id number]] Glucose [Mass/volume] in Serum or Plasma [2345-7] 11/03/2025 02:03 PM 106 mg/dL N Blood chemistry[[id number]] Glucose [Mass/volume] in Serum or Plasma [2345-7] 11/02/2025 02:04 PM 231 mg/dL N Blood chemistry[[id number]] Glucose [Mass/volume] in Serum or Plasma [2345-7] 11/02/2025 11:34 AM 162 mg/dL N Blood chemistry[[id number]] Glucose [Mass/volume] in Serum or Plasma [2345-7] 11/02/2025 06:36 PM 184 mg/dL N Blood chemistry[[id number]] Glucose [Mass/volume] in Serum or Plasma [2345-7] 11/02/2025 02:03 PM 117 mg/dL N Blood chemistry[[id number]] Glucose [Mass/volume] in Serum or Plasma [2345-7] 11/01/2025 05:11 PM 114 mg/dL N Blood chemistry[[id number]] Glucose [Mass/volume] in Serum or Plasma [2345-7] 11/01/2025 05:16 PM 187 mg/dL N Blood chemistry[[id number]] Glucose [Mass/volume] in Serum or Plasma [2345-7] 11/01/2025 10:20 AM 186 mg/dL N Blood chemistry[[id number]] Glucose [Mass/volume] in Serum or Plasma [2345-7] 11/01/2025 10:19 AM 308 mg/dL N Blood chemistry[[id number]] Glucose [Mass/volume] in Serum or Plasma [2345-7] 11/01/2025 12:56 PM 138 mg/dL N Blood chemistry[[id number]] Glucose [Mass/volume] in Serum or Plasma [2345-7] 10/31/2025 12:43 PM 172 mg/dL N Blood chemistry[[id number]] Glucose [Mass/volume] in Serum or Plasma [2345-7] 10/31/2025 05:41 PM 120 mg/dL N Blood chemistry[[id number]] Glucose [Mass/volume] in Serum or Plasma [2345-7] 10/31/2025 03:03 PM 143 mg/dL N Glucose [Mass/volume] in Serum or Plasma [2345-7] 10/31/2025 03:03 PM 143 mg/dL N Blood chemistry[[id number]] Glucose [Mass/volume] in Serum or Plasma [2345-7] 10/31/2025 10:17 AM 155 mg/dL N Blood chemistry[[id number]] Glucose [Mass/volume] in Serum or Plasma [2345-7] 10/30/2025 12:43 PM 288 mg/dL N Blood chemistry[[id number]] Glucose [Mass/volume] in Serum or Plasma [2345-7] 10/30/2025 05:16 PM 205 mg/dL N Blood chemistry[[id number]] Glucose [Mass/volume] in Serum or Plasma [2345-7] 10/30/2025 10:27 AM 218 mg/dL N Blood chemistry[[id number]] Glucose [Mass/volume] in Serum or Plasma [2345-7] 10/30/2025 07:26 AM 205 mg/dL N Blood chemistry[[id number]] Glucose [Mass/volume] in Serum or Plasma [2345-7] 10/30/2025 03:03 PM 148 mg/dL N Blood chemistry[[id number]] Glucose [Mass/volume] in Serum or Plasma [2345-7] 10/29/2025 02:45 PM 154 mg/dL N Blood chemistry[[id number]] Glucose [Mass/volume] in Serum or Plasma [2345-7] 10/29/2025 05:37 PM 118 mg/dL N Blood chemistry[[id number]] Glucose [Mass/volume] in Serum or Plasma [2345-7] 10/29/2025 09:59 AM 178 mg/dL N Blood chemistry[[id number]] Glucose [Mass/volume] in Serum or Plasma [2345-7] 10/29/2025 01:23 PM 153 mg/dL N Blood chemistry[[id number]] Glucose [Mass/volume] in Serum or Plasma [2345-7] 10/28/2025 03:16 PM 227 mg/dL N Blood chemistry[[id number]] Glucose [Mass/volume] in Serum or Plasma [2345-7] 10/28/2025 03:23 PM 437 mg/dL N Blood chemistry[[id number]] Glucose [Mass/volume] in Serum or Plasma [2345-7] 10/28/2025 10:27 AM 159 mg/dL N Blood chemistry[[id number]] Glucose [Mass/volume] in Serum or Plasma [2345-7] 10/28/2025 07:32 AM 152 mg/dL N Blood chemistry[[id number]] Glucose [Mass/volume] in Serum or Plasma [2345-7] 10/27/2025 03:01 PM 240 mg/dL N Blood chemistry[[id number]] Glucose [Mass/volume] in Serum or Plasma [2345-7] 10/27/2025 04:45 PM 152 mg/dL N Blood chemistry[[id number]] Glucose [Mass/volume] in Serum or Plasma [2345-7] 10/27/2025 09:45 AM 198 mg/dL N Blood chemistry[[id number]] Glucose [Mass/volume] in Serum or Plasma [2345-7] 10/27/2025 01:04 PM 125 mg/dL N Blood chemistry[[id number]] Glucose [Mass/volume] in Serum or Plasma [2345-7] 10/27/2025 12:57 PM 125 mg/dL N Blood chemistry[[id number]] Glucose [Mass/volume] in Serum or Plasma [2345-7] 10/26/2025 12:50 PM 387 mg/dL N Blood chemistry[[id number]] Glucose [Mass/volume] in Serum or Plasma [2345-7] 10/26/2025 11:27 AM 98 mg/dL N Blood chemistry[[id number]] Glucose [Mass/volume] in Serum or Plasma [2345-7] 10/26/2025 11:26 AM 98 mg/dL N Blood chemistry[[id number]] Glucose [Mass/volume] in Serum or Plasma [2345-7] 10/26/2025 04:25 PM 124 mg/dL N Blood chemistry[[id number]] Glucose [Mass/volume] in Serum or Plasma [2345-7] 10/26/2025 07:48 AM 271 mg/dL N Blood chemistry[[id number]] Glucose [Mass/volume] in Serum or Plasma [2345-7] 10/25/2025 01:00 PM 215 mg/dL N Blood chemistry[[id number]] Glucose [Mass/volume] in Serum or Plasma [2345-7] 10/25/2025 11:29 AM 255 mg/dL N Blood chemistry[[id number]] Glucose [Mass/volume] in Serum or Plasma [2345-7] 10/25/2025 06:38 PM 211 mg/dL N Glucose [Mass/volume] in Serum or Plasma [2345-7] 10/25/2025 06:38 PM 211 mg/dL N Blood chemistry[[id number]] Glucose [Mass/volume] in Serum or Plasma [2345-7] 10/25/2025 04:38 PM 129 mg/dL N Blood chemistry[[id number]] Glucose [Mass/volume] in Serum or Plasma [2345-7] 10/25/2025 04:36 PM 129 mg/dL N Blood chemistry[[id number]] Glucose [Mass/volume] in Serum or Plasma [2345-7] 10/24/2025 01:50 PM 308 mg/dL N Blood chemistry[[id number]] Glucose [Mass/volume] in Serum or Plasma [2345-7] 10/24/2025 06:47 PM 172 mg/dL N Blood chemistry[[id number]] Glucose [Mass/volume] in Serum or Plasma [2345-7] 10/24/2025 11:19 AM 216 mg/dL N Blood chemistry[[id number]] Glucose [Mass/volume] in Serum or Plasma [2345-7] 10/24/2025 03:07 PM 136 mg/dL N Blood chemistry[[id number]] Glucose [Mass/volume] in Serum or Plasma [2345-7] 10/23/2025 03:20 PM 190 mg/dL N Blood chemistry[[id number]] Glucose [Mass/volume] in Serum or Plasma [2345-7] 10/23/2025 04:57 PM 231 mg/dL N Blood chemistry[[id number]] Glucose [Mass/volume] in Serum or Plasma [2345-7] 10/23/2025 09:57 AM 263 mg/dL N Blood chemistry[[id number]] Glucose [Mass/volume] in Serum or Plasma [2345-7] 10/23/2025 01:31 PM 178 mg/dL N Blood chemistry[[id number]] Glucose [Mass/volume] in Serum or Plasma [2345-7] 10/22/2025 02:43 PM 192 mg/dL N Blood chemistry[[id number]] Glucose [Mass/volume] in Serum or Plasma [2345-7] 10/22/2025 05:43 PM 205 mg/dL N Blood chemistry[[id number]] Glucose [Mass/volume] in Serum or Plasma [2345-7] 10/22/2025 11:06 AM 238 mg/dL N Blood chemistry[[id number]] Glucose [Mass/volume] in Serum or Plasma [2345-7] 10/22/2025 01:35 PM 144 mg/dL N Blood chemistry[[id number]] Glucose [Mass/volume] in Serum or Plasma [2345-7] 10/21/2025 02:37 PM 182 mg/dL N Blood chemistry[[id number]] Glucose [Mass/volume] in Serum or Plasma [2345-7] 10/21/2025 05:10 PM 209 mg/dL N Blood chemistry[[id number]] Glucose [Mass/volume] in Serum or Plasma [2345-7] 10/21/2025 09:58 AM 192 mg/dL N Blood chemistry[[id number]] Glucose [Mass/volume] in Serum or Plasma [2345-7] 10/21/2025 01:12 PM 176 mg/dL N Blood chemistry[[id number]] Glucose [Mass/volume] in Serum or Plasma [2345-7] 10/20/2025 03:44 PM 286 mg/dL N Blood chemistry[[id number]] Glucose [Mass/volume] in Serum or Plasma [2345-7] 10/20/2025 05:21 PM 244 mg/dL N Blood chemistry[[id number]] Glucose [Mass/volume] in Serum or Plasma [2345-7] 10/20/2025 10:04 AM 191 mg/dL N Blood chemistry[[id number]] Glucose [Mass/volume] in Serum or Plasma [2345-7] 10/20/2025 12:41 PM 176 mg/dL N Blood chemistry[[id number]] Glucose [Mass/volume] in Serum or Plasma [2345-7] 10/19/2025 04:26 PM 226 mg/dL N Blood chemistry[[id number]] Glucose [Mass/volume] in Serum or Plasma [2345-7] 10/19/2025 05:44 PM 116 mg/dL N Blood chemistry[[id number]] Glucose [Mass/volume] in Serum or Plasma [2345-7] 10/19/2025 03:28 PM 101 mg/dL N Blood chemistry[[id number]] Glucose [Mass/volume] in Serum or Plasma [2345-7] 10/18/2025 01:12 PM 151 mg/dL N Blood chemistry[[id number]] Glucose [Mass/volume] in Serum or Plasma [2345-7] 10/18/2025 06:05 PM 299 mg/dL N Blood chemistry[[id number]] Glucose [Mass/volume] in Serum or Plasma [2345-7] 10/18/2025 09:49 AM 270 mg/dL N Blood chemistry[[id number]] Glucose [Mass/volume] in Serum or Plasma [2345-7] 10/18/2025 12:54 PM 194 mg/dL N Blood chemistry[[id number]] Glucose [Mass/volume] in Serum or Plasma [2345-7] 10/17/2025 12:56 PM 226 mg/dL N Blood chemistry[[id number]] Glucose [Mass/volume] in Serum or Plasma [2345-7] 10/17/2025 05:01 PM 190 mg/dL N Blood chemistry[[id number]] Glucose [Mass/volume] in Serum or Plasma [2345-7] 10/17/2025 10:19 AM 291 mg/dL N Blood chemistry[[id number]] Glucose [Mass/volume] in Serum or Plasma [2345-7] 10/17/2025 01:48 PM 379 mg/dL N Blood chemistry[[id number]] Glucose [Mass/volume] in Serum or Plasma [2345-7] 10/16/2025 12:55 PM 217 mg/dL N Blood chemistry[[id number]] Glucose [Mass/volume] in Serum or Plasma [2345-7] 10/16/2025 05:28 PM 175 mg/dL N Blood chemistry[[id number]] Glucose [Mass/volume] in Serum or Plasma [2345-7] 10/16/2025 03:14 PM 144 mg/dL N Blood chemistry[[id number]] Glucose [Mass/volume] in Serum or Plasma [2345-7] 10/16/2025 11:19 AM 196 mg/dL N Blood chemistry[[id number]] Glucose [Mass/volume] in Serum or Plasma [2345-7] 10/15/2025 02:43 PM 224 mg/dL N Blood chemistry[[id number]] Glucose [Mass/volume] in Serum or Plasma [2345-7] 10/15/2025 05:20 PM 169 mg/dL N Blood chemistry[[id number]] Glucose [Mass/volume] in Serum or Plasma [2345-7] 10/15/2025 09:50 AM 206 mg/dL N Blood chemistry[[id number]] Glucose [Mass/volume] in Serum or Plasma [2345-7] 10/15/2025 01:24 PM 187 mg/dL N Blood chemistry[[id number]] Glucose [Mass/volume] in Serum or Plasma [2345-7] 10/14/2025 01:59 PM 167 mg/dL N Blood chemistry[[id number]] Glucose [Mass/volume] in Serum or Plasma [2345-7] 10/14/2025 04:56 PM 178 mg/dL N Blood chemistry[[id number]] Glucose [Mass/volume] in Serum or Plasma [2345-7] 10/14/2025 09:48 AM 127 mg/dL N Blood chemistry[[id number]] Glucose [Mass/volume] in Serum or Plasma [2345-7] 10/14/2025 01:47 PM 87 mg/dL N Blood chemistry[[id number]] Glucose [Mass/volume] in Serum or Plasma [2345-7] 10/13/2025 03:29 PM 144 mg/dL N Blood chemistry[[id number]] Glucose [Mass/volume] in Serum or Plasma [2345-7] 10/13/2025 05:51 PM 137 mg/dL N Glucose [Mass/volume] in Serum or Plasma [2345-7] 10/13/2025 05:51 PM 137 mg/dL N Blood chemistry[[id number]] Glucose [Mass/volume] in Serum or Plasma [2345-7] 10/13/2025 10:05 AM 135 mg/dL N Blood chemistry[[id number]] Glucose [Mass/volume] in Serum or Plasma [2345-7] 10/13/2025 12:45 PM 168 mg/dL N Blood chemistry[[id number]] Glucose [Mass/volume] in Serum or Plasma [2345-7] 10/12/2025 02:21 PM 213 mg/dL N Blood chemistry[[id number]] Glucose [Mass/volume] in Serum or Plasma [2345-7] 10/12/2025 05:33 PM 242 mg/dL N Blood chemistry[[id number]] Glucose [Mass/volume] in Serum or Plasma [2345-7] 10/12/2025 03:26 PM 117 mg/dL N Blood chemistry[[id number]] Glucose [Mass/volume] in Serum or Plasma [2345-7] 10/12/2025 10:59 AM 195 mg/dL N Blood chemistry[[id number]] Glucose [Mass/volume] in Serum or Plasma [2345-7] 10/11/2025 01:17 PM 216 mg/dL N Blood chemistry[[id number]] Glucose [Mass/volume] in Serum or Plasma [2345-7] 10/11/2025 06:09 PM 336 mg/dL N Blood chemistry[[id number]] Glucose [Mass/volume] in Serum or Plasma [2345-7] 10/11/2025 11:21 AM 227 mg/dL N Blood chemistry[] Glucose [Mass/volume] in Serum or Plasma [2345-7] 10/11/2025 01:28 PM 111 mg/dL N Blood chemistry[[id number]] Glucose [Mass/volume] in Serum or Plasma [2345-7] 10/10/2025 02:22 PM 229 mg/dL N Blood chemistry[[id number]] Glucose [Mass/volume] in Serum or Plasma [2345-7] 10/10/2025 12:35 PM 271 mg/dL N Blood chemistry[[id number]] Glucose [Mass/volume] in Serum or Plasma [2345-7] 10/10/2025 06:33 PM 209 mg/dL N Blood chemistry[[id number]] Glucose [Mass/volume] in Serum or Plasma [2345-7] 10/10/2025 03:26 PM 149 mg/dL N Blood chemistry[[id number]] Glucose [Mass/volume] in Serum or Plasma [2345-7] 10/09/2025 01:29 PM 263 mg/dL N Blood chemistry[[id number]] Glucose [Mass/volume] in Serum or Plasma [2345-7] 10/09/2025 10:23 AM 147 mg/dL N Blood chemistry[[id number]] Glucose [Mass/volume] in Serum or Plasma [2345-7] 10/09/2025 07:02 AM 176 mg/dL N Blood chemistry[[id number]] Glucose [Mass/volume] in Serum or Plasma [2345-7] 10/09/2025 01:44 PM 136 mg/dL N Blood chemistry[[id number]] Glucose [Mass/volume] in Serum or Plasma [2345-7] 10/08/2025 03:26 PM 253 mg/dL N Blood chemistry[[id number]] Glucose [Mass/volume] in Serum or Plasma [2345-7] 10/08/2025 05:37 PM 178 mg/dL N Blood chemistry[[id number]] Glucose [Mass/volume] in Serum or Plasma [2345-7] 10/08/2025 04:00 PM 171 mg/dL N Blood chemistry[[id number]] Glucose [Mass/volume] in Serum or Plasma [2345-7] 10/08/2025 03:59 PM 171 mg/dL N Blood chemistry[[id number]] Glucose [Mass/volume] in Serum or Plasma [2345-7] 10/08/2025 10:57 AM 211 mg/dL N Blood chemistry[[id number]] Glucose [Mass/volume] in Serum or Plasma [2345-7] 10/07/2025 03:22 PM 255 mg/dL N Blood chemistry[[id number]] Glucose [Mass/volume] in Serum or Plasma [2345-7] 10/07/2025 10:39 AM 242 mg/dL N Blood chemistry[[id number]] Glucose [Mass/volume] in Serum or Plasma [2345-7] 10/07/2025 07:04 AM 197 mg/dL N Blood chemistry[[id number]] Glucose [Mass/volume] in Serum or Plasma [2345-7] 10/07/2025 01:34 PM 183 mg/dL N Blood chemistry[[id number]] Glucose [Mass/volume] in Serum or Plasma [2345-7] 10/06/2025 03:50 PM 221 mg/dL N Blood chemistry[[id number]] Glucose [Mass/volume] in Serum or Plasma [2345-7] 10/06/2025 05:17 PM 207 mg/dL N Blood chemistry[[id number]] Glucose [Mass/volume] in Serum or Plasma [2345-7] 10/06/2025 10:08 AM 156 mg/dL N Blood chemistry[[id number]] Glucose [Mass/volume] in Serum or Plasma [2345-7] 10/06/2025 10:04 AM 156 mg/dL N Blood chemistry[[id number]] Glucose [Mass/volume] in Serum or Plasma [2345-7] 10/06/2025 01:48 PM 168 mg/dL N Blood chemistry[[id number]] Glucose [Mass/volume] in Serum or Plasma [2345-7] 10/06/2025 12:54 PM 168 mg/dL N Blood chemistry[[id number]] Glucose [Mass/volume] in Serum or Plasma [2345-7] 10/05/2025 12:46 PM 215 mg/dL N Blood chemistry[[id number]] Glucose [Mass/volume] in Serum or Plasma [2345-7] 10/05/2025 06:58 PM 148 mg/dL N Blood chemistry[[id number]] Glucose [Mass/volume] in Serum or Plasma [2345-7] 10/05/2025 04:31 PM 146 mg/dL N Blood chemistry[[id number]] Glucose [Mass/volume] in Serum or Plasma [2345-7] 10/05/2025 11:01 AM 177 mg/dL N Blood chemistry[[id number]] Glucose [Mass/volume] in Serum or Plasma [2345-7] 10/04/2025 01:59 PM 153 mg/dL N Blood chemistry[[id number]] Glucose [Mass/volume] in Serum or Plasma [2345-7] 10/04/2025 06:02 PM 166 mg/dL N Blood chemistry[[id number]] Glucose [Mass/volume] in Serum or Plasma [2345-7] 10/04/2025 10:36 AM 249 mg/dL N Blood chemistry[[id number]] Glucose [Mass/volume] in Serum or Plasma [2345-7] 10/04/2025 01:23 PM 250 mg/dL N Blood chemistry[[id number]] Glucose [Mass/volume] in Serum or Plasma [2345-7] 10/04/2025 12:25 PM 250 mg/dL N Blood chemistry[[id number]] Glucose [Mass/volume] in Serum or Plasma [2345-7] 10/03/2025 01:01 PM 174 mg/dL N Blood chemistry[[id number]] Glucose [Mass/volume] in Serum or Plasma [2345-7] 10/03/2025 12:10 PM 207 mg/dL N Blood chemistry[[id number]] Glucose [Mass/volume] in Serum or Plasma [2345-7] 10/03/2025 05:06 PM 174 mg/dL N Blood chemistry[[id number]] Glucose [Mass/volume] in Serum or Plasma [2345-7] 10/03/2025 09:52 AM 224 mg/dL N Blood chemistry[[id number]] Glucose [Mass/volume] in Serum or Plasma [2345-7] 10/03/2025 01:04 PM 137 mg/dL N Blood chemistry[[id number]] Glucose [Mass/volume] in Serum or Plasma [2345-7] 10/02/2025 01:15 PM 206 mg/dL N Blood chemistry[[id number]] Glucose [Mass/volume] in Serum or Plasma [2345-7] 10/02/2025 06:31 PM 139 mg/dL N Blood chemistry[[id number]] Glucose [Mass/volume] in Serum or Plasma [2345-7] 10/02/2025 10:52 AM 152 mg/dL N Blood chemistry[[id number]] Glucose [Mass/volume] in Serum or Plasma [2345-7] 10/02/2025 02:11 PM 103 mg/dL N Blood chemistry[[id number]] Glucose [Mass/volume] in Serum or Plasma [2345-7] 10/01/2025 04:56 PM 127 mg/dL N Blood chemistry[[id number]] Glucose [Mass/volume] in Serum or Plasma [2345-7] 10/01/2025 05:00 PM 177 mg/dL N Blood chemistry[[id number]] Glucose [Mass/volume] in Serum or Plasma [2345-7] 10/01/2025 10:01 AM 159 mg/dL N Blood chemistry[[id number]] Glucose [Mass/volume] in Serum or Plasma [2345-7] 10/01/2025 01:20 PM 159 mg/dL N Blood chemistry[[id number]] Glucose [Mass/volume] in Serum or Plasma [2345-7] 09/30/2025 05:50 PM 135 mg/dL N Blood chemistry[[id number]] Glucose [Mass/volume] in Serum or Plasma [2345-7] 09/30/2025 05:30 PM 121 mg/dL N Blood chemistry[[id number]] Glucose [Mass/volume] in Serum or Plasma [2345-7] 09/30/2025 09:53 AM 147 mg/dL N Blood chemistry[[id number]] Glucose [Mass/volume] in Serum or Plasma [2345-7] 09/30/2025 02:20 PM 91 mg/dL N Blood chemistry[[id number]] Glucose [Mass/volume] in Serum or Plasma [2345-7] 09/29/2025 05:47 PM 106 mg/dL N Blood chemistry[[id number]] Glucose [Mass/volume] in Serum or Plasma [2345-7] 09/29/2025 05:11 PM 135 mg/dL N Blood chemistry[[id number]] Glucose [Mass/volume] in Serum or Plasma [2345-7] 09/29/2025 10:10 AM 112 mg/dL N Blood chemistry[[id number]] Glucose [Mass/volume] in Serum or Plasma [2345-7] 09/29/2025 09:54 AM 112 mg/dL N Blood chemistry[[id number]] Glucose [Mass/volume] in Serum or Plasma [2345-7] 09/29/2025 12:41 PM 86 mg/dL N Blood chemistry[[id number]] Glucose [Mass/volume] in Serum or Plasma [2345-7] 09/28/2025 02:01 PM 246 mg/dL N Blood chemistry[[id number]] Glucose [Mass/volume] in Serum or Plasma [2345-7] 09/28/2025 01:30 PM 148 mg/dL N Blood chemistry[[id number]] Glucose [Mass/volume] in Serum or Plasma [2345-7] 09/28/2025 06:01 PM 189 mg/dL N Glucose [Mass/volume] in Serum or Plasma [2345-7] 09/28/2025 06:01 PM 133 mg/dL N Blood chemistry[[id number]] Glucose [Mass/volume] in Serum or Plasma [2345-7] 09/27/2025 01:34 PM 164 mg/dL N Blood chemistry[[id number]] Glucose [Mass/volume] in Serum or Plasma [2345-7] 09/27/2025 11:36 AM 173 mg/dL N Blood chemistry[[id number]] Glucose [Mass/volume] in Serum or Plasma [2345-7] 09/27/2025 06:44 PM 99 mg/dL N Blood chemistry[[id number]] Glucose [Mass/volume] in Serum or Plasma [2345-7] 09/27/2025 03:37 PM 84 mg/dL N Blood chemistry[[id number]] Glucose [Mass/volume] in Serum or Plasma [2345-7] 09/26/2025 01:12 PM 181 mg/dL N Blood chemistry[[id number]] Glucose [Mass/volume] in Serum or Plasma [2345-7] 09/26/2025 06:31 PM 176 mg/dL N Blood chemistry[[id number]] Glucose [Mass/volume] in Serum or Plasma [2345-7] 09/26/2025 11:18 AM 152 mg/dL N Blood chemistry[[id number]] Glucose [Mass/volume] in Serum or Plasma [2345-7] 09/26/2025 02:10 PM 107 mg/dL N Blood chemistry[[id number]] Glucose [Mass/volume] in Serum or Plasma [2345-7] 09/25/2025 01:11 PM 260 mg/dL N Blood chemistry[[id number]] Glucose [Mass/volume] in Serum or Plasma [2345-7] 09/25/2025 05:27 PM 108 mg/dL N Blood chemistry[[id number]] Glucose [Mass/volume] in Serum or Plasma [2345-7] 09/25/2025 10:09 AM 133 mg/dL N Blood chemistry[[id number]] Glucose [Mass/volume] in Serum or Plasma [2345-7] 09/25/2025 10:00 AM 133 mg/dL N Blood chemistry[[id number]] Glucose [Mass/volume] in Serum or Plasma [2345-7] 09/25/2025 12:37 PM 175 mg/dL N Blood chemistry[[id number]] Glucose [Mass/volume] in Serum or Plasma [2345-7] 09/24/2025 02:09 PM 119 mg/dL N Blood chemistry[[id number]] Glucose [Mass/volume] in Serum or Plasma [2345-7] 09/24/2025 05:29 PM 115 mg/dL N Blood chemistry[[id number]] Glucose [Mass/volume] in Serum or Plasma [2345-7] 09/24/2025 03:31 PM 89 mg/dL N Blood chemistry[[id number]] Glucose [Mass/volume] in Serum or Plasma [2345-7] 09/24/2025 10:59 AM 89 mg/dL N Blood chemistry[[id number]] Glucose [Mass/volume] in Serum or Plasma [2345-7] 09/23/2025 01:50 PM 164 mg/dL N Blood chemistry[[id number]] Glucose [Mass/volume] in Serum or Plasma [2345-7] 09/23/2025 06:20 PM 116 mg/dL N Blood chemistry[[id number]] Glucose [Mass/volume] in Serum or Plasma [2345-7] 09/23/2025 04:38 PM 117 mg/dL N Blood chemistry[[id number]] Glucose [Mass/volume] in Serum or Plasma [2345-7] 09/23/2025 02:32 PM 117 mg/dL N Blood chemistry[[id number]] Glucose [Mass/volume] in Serum or Plasma [2345-7] 09/23/2025 10:30 AM 206 mg/dL N Blood chemistry[[id number]] Glucose [Mass/volume] in Serum or Plasma [2345-7] 09/22/2025 02:20 PM 201 mg/dL N Blood chemistry[[id number]] Glucose [Mass/volume] in Serum or Plasma [2345-7] 09/22/2025 05:43 PM 224 mg/dL N Blood chemistry[[id number]] Glucose [Mass/volume] in Serum or Plasma [2345-7] 09/22/2025 10:06 AM 266 mg/dL N Blood chemistry[[id number]] Glucose [Mass/volume] in Serum or Plasma [2345-7] 09/22/2025 12:24 PM 224 mg/dL N Blood chemistry[[id number]] Glucose [Mass/volume] in Serum or Plasma [2345-7] 09/21/2025 01:03 PM 310 mg/dL N Blood chemistry[[id number]] Glucose [Mass/volume] in Serum or Plasma [2345-7] 09/21/2025 06:26 PM 146 mg/dL N Blood chemistry[[id number]] Glucose [Mass/volume] in Serum or Plasma [2345-7] 09/21/2025 04:22 PM 174 mg/dL N Blood chemistry[[id number]] Glucose [Mass/volume] in Serum or Plasma [2345-7] 09/20/2025 02:22 PM 169 mg/dL N Blood chemistry[[id number]] Glucose [Mass/volume] in Serum or Plasma [2345-7] 09/20/2025 05:19 PM 208 mg/dL N Blood chemistry[[id number]] Glucose [Mass/volume] in Serum or Plasma [2345-7] 09/20/2025 09:58 AM 141 mg/dL N Blood chemistry[[id number]] Glucose [Mass/volume] in Serum or Plasma [2345-7] 09/20/2025 01:44 PM 217 mg/dL N Blood chemistry[[id number]] Glucose [Mass/volume] in Serum or Plasma [2345-7] 09/20/2025 12:46 PM 217 mg/dL N Blood chemistry[[id number]] Glucose [Mass/volume] in Serum or Plasma [2345-7] 09/19/2025 01:36 PM 208 mg/dL N Blood chemistry[[id number]] Glucose [Mass/volume] in Serum or Plasma [2345-7] 09/19/2025 11:43 AM 181 mg/dL N Blood chemistry[[id number]] Glucose [Mass/volume] in Serum or Plasma [2345-7] 09/19/2025 05:39 PM 176 mg/dL N Blood chemistry[[id number]] Glucose [Mass/volume] in Serum or Plasma [2345-7] 09/19/2025 03:27 PM 202 mg/dL N Blood chemistry[[id number]] Glucose [Mass/volume] in Serum or Plasma [2345-7] 09/18/2025 01:29 PM 249 mg/dL N Blood chemistry[[id number]] Glucose [Mass/volume] in Serum or Plasma [2345-7] 09/18/2025 05:10 PM 182 mg/dL N Blood chemistry[[id number]] Glucose [Mass/volume] in Serum or Plasma [2345-7] 09/18/2025 03:24 PM 199 mg/dL N Blood chemistry[[id number]] Glucose [Mass/volume] in Serum or Plasma [2345-7] 09/18/2025 11:15 AM 326 mg/dL N Blood chemistry[[id number]] Glucose [Mass/volume] in Serum or Plasma [2345-7] 09/18/2025 02:46 PM 199 mg/dL N Blood chemistry[[id number]] Glucose [Mass/volume] in Serum or Plasma [2345-7] 09/17/2025 03:00 PM 219 mg/dL N Blood chemistry[[id number]] Glucose [Mass/volume] in Serum or Plasma [2345-7] 09/17/2025 05:39 PM 176 mg/dL N Blood chemistry[[id number]] Glucose [Mass/volume] in Serum or Plasma [2345-7] 09/17/2025 04:08 PM 196 mg/dL N Blood chemistry[[id number]] Glucose [Mass/volume] in Serum or Plasma [2345-7] 09/17/2025 10:43 AM 230 mg/dL N Blood chemistry[[id number]] Glucose [Mass/volume] in Serum or Plasma [2345-7] 09/16/2025 04:48 PM 254 mg/dL N Blood chemistry[[id number]] Glucose [Mass/volume] in Serum or Plasma [2345-7] 09/16/2025 05:09 PM 159 mg/dL N Blood chemistry[[id number]] Glucose [Mass/volume] in Serum or Plasma [2345-7] 09/16/2025 10:15 AM 150 mg/dL N Blood chemistry[[id number]] Glucose [Mass/volume] in Serum or Plasma [2345-7] 09/16/2025 01:36 PM 166 mg/dL N Blood chemistry[[id number]] Glucose [Mass/volume] in Serum or Plasma [2345-7] 09/16/2025 07:27 AM 180 mg/dL N Blood chemistry[[id number]] Glucose [Mass/volume] in Serum or Plasma [2345-7] 09/15/2025 04:59 PM 140 mg/dL N Blood chemistry[[id number]] Glucose [Mass/volume] in Serum or Plasma [2345-7] 09/15/2025 09:37 AM 173 mg/dL N Blood chemistry[[id number]] Glucose [Mass/volume] in Serum or Plasma [2345-7] 09/15/2025 01:32 PM 124 mg/dL N Blood chemistry[[id number]] Glucose [Mass/volume] in Serum or Plasma [2345-7] 09/14/2025 02:37 PM 177 mg/dL N Blood chemistry[[id number]] Glucose [Mass/volume] in Serum or Plasma [2345-7] 09/14/2025 05:53 PM 213 mg/dL N Blood chemistry[[id number]] Glucose [Mass/volume] in Serum or Plasma [2345-7] 09/14/2025 09:45 AM 166 mg/dL N Blood chemistry[[id number]] Glucose [Mass/volume] in Serum or Plasma [2345-7] 09/14/2025 02:18 PM 149 mg/dL N Blood chemistry[[id number]] Glucose [Mass/volume] in Serum or Plasma [2345-7] 09/13/2025 12:47 PM 213 mg/dL N Blood chemistry[[id number]] Glucose [Mass/volume] in Serum or Plasma [2345-7] 09/13/2025 12:23 PM 200 mg/dL N Blood chemistry[[id number]] Glucose [Mass/volume] in Serum or Plasma [2345-7] 09/13/2025 06:02 PM 151 mg/dL N Blood chemistry[[id number]] Glucose [Mass/volume] in Serum or Plasma [2345-7] 09/13/2025 02:34 PM 105 mg/dL N Blood chemistry[[id number]] Glucose [Mass/volume] in Serum or Plasma [2345-7] 09/12/2025 02:00 PM 192 mg/dL N Blood chemistry[[id number]] Glucose [Mass/volume] in Serum or Plasma [2345-7] 09/12/2025 01:06 PM 199 mg/dL N Blood chemistry[[id number]] Glucose [Mass/volume] in Serum or Plasma [2345-7] 09/12/2025 05:49 PM 179 mg/dL N Blood chemistry[[id number]] Glucose [Mass/volume] in Serum or Plasma [2345-7] 09/12/2025 03:41 PM 168 mg/dL N Blood chemistry[[id number]] Glucose [Mass/volume] in Serum or Plasma [2345-7] 09/11/2025 01:21 PM 186 mg/dL N Blood chemistry[[id number]] Glucose [Mass/volume] in Serum or Plasma [2345-7] 09/11/2025 05:10 PM 206 mg/dL N Blood chemistry[[id number]] Glucose [Mass/volume] in Serum or Plasma [2345-7] 09/11/2025 10:31 AM 156 mg/dL N Blood chemistry[[id number]] Glucose [Mass/volume] in Serum or Plasma [2345-7] 09/11/2025 09:32 AM 156 mg/dL N Blood chemistry[[id number]] Glucose [Mass/volume] in Serum or Plasma [2345-7] 09/11/2025 02:04 PM 166 mg/dL N Blood chemistry[[id number]] Glucose [Mass/volume] in Serum or Plasma [2345-7] 09/10/2025 03:38 PM 165 mg/dL N Blood chemistry[[id number]] Glucose [Mass/volume] in Serum or Plasma [2345-7] 09/10/2025 11:26 AM 206 mg/dL N Blood chemistry[[id number]] Glucose [Mass/volume] in Serum or Plasma [2345-7] 09/10/2025 06:12 PM 215 mg/dL N Blood chemistry[[id number]] Glucose [Mass/volume] in Serum or Plasma [2345-7] 09/10/2025 04:39 PM 117 mg/dL N Glucose [Mass/volume] in Serum or Plasma [2345-7] 09/10/2025 04:39 PM 117 mg/dL N Blood chemistry[[id number]] Glucose [Mass/volume] in Serum or Plasma [2345-7] 09/09/2025 04:49 PM 229 mg/dL N Blood chemistry[[id number]] Glucose [Mass/volume] in Serum or Plasma [2345-7] 09/09/2025 10:28 AM 174 mg/dL N Blood chemistry[[id number]] Glucose [Mass/volume] in Serum or Plasma [2345-7] 09/09/2025 04:59 PM 245 mg/dL N Blood chemistry[[id number]] Glucose [Mass/volume] in Serum or Plasma [2345-7] 09/09/2025 01:01 PM 135 mg/dL N Blood chemistry[[id number]] Glucose [Mass/volume] in Serum or Plasma [2345-7] 09/08/2025 02:42 PM 213 mg/dL N Blood chemistry[[id number]] Glucose [Mass/volume] in Serum or Plasma [2345-7] 09/08/2025 03:50 PM 212 mg/dL N Blood chemistry[[id number]] Glucose [Mass/volume] in Serum or Plasma [2345-7] 09/08/2025 09:04 AM 184 mg/dL N Blood chemistry[[id number]] Glucose [Mass/volume] in Serum or Plasma [2345-7] 09/08/2025 12:24 PM 180 mg/dL N Blood chemistry[[id number]] Glucose [Mass/volume] in Serum or Plasma [2345-7] 09/08/2025 11:45 AM 180 mg/dL N Blood chemistry[[id number]] Glucose [Mass/volume] in Serum or Plasma [2345-7] 09/07/2025 12:12 PM 209 mg/dL N Blood chemistry[[id number]] Glucose [Mass/volume] in Serum or Plasma [2345-7] 09/07/2025 04:22 PM 191 mg/dL N Blood chemistry[[id number]] Glucose [Mass/volume] in Serum or Plasma [2345-7] 09/07/2025 08:54 AM 166 mg/dL N Blood chemistry[[id number]] Glucose [Mass/volume] in Serum or Plasma [2345-7] 09/07/2025 12:58 PM 129 mg/dL N Blood chemistry[[id number]] Glucose [Mass/volume] in Serum or Plasma [2345-7] 09/06/2025 12:35 PM 192 mg/dL N Blood chemistry[[id number]] Glucose [Mass/volume] in Serum or Plasma [2345-7] 09/06/2025 04:13 PM 197 mg/dL N Blood chemistry[[id number]] Glucose [Mass/volume] in Serum or Plasma [2345-7] 09/06/2025 08:44 AM 167 mg/dL N Blood chemistry[[id number]] Glucose [Mass/volume] in Serum or Plasma [2345-7] 09/06/2025 12:48 PM 171 mg/dL N Blood chemistry[[id number]] Glucose [Mass/volume] in Serum or Plasma [2345-7] 09/05/2025 12:12 PM 117 mg/dL N Blood chemistry[[id number]] Glucose [Mass/volume] in Serum or Plasma [2345-7] 09/05/2025 04:30 PM 221 mg/dL N Blood chemistry[[id number]] Glucose [Mass/volume] in Serum or Plasma [2345-7] 09/05/2025 09:10 AM 178 mg/dL N Blood chemistry[[id number]] Glucose [Mass/volume] in Serum or Plasma [2345-7] 09/05/2025 12:23 PM 160 mg/dL N Blood chemistry[[id number]] Glucose [Mass/volume] in Serum or Plasma [2345-7] 09/04/2025 12:02 PM 227 mg/dL N Blood chemistry[[id number]] Glucose [Mass/volume] in Serum or Plasma [2345-7] 09/04/2025 04:44 PM 225 mg/dL N Blood chemistry[[id number]] Glucose [Mass/volume] in Serum or Plasma [2345-7] 09/04/2025 09:31 AM 240 mg/dL N Blood chemistry[[id number]] Glucose [Mass/volume] in Serum or Plasma [2345-7] 09/04/2025 12:58 PM 157 mg/dL N Blood chemistry[[id number]] Glucose [Mass/volume] in Serum or Plasma [2345-7] 09/03/2025 01:54 PM 182 mg/dL N Blood chemistry[[id number]] Glucose [Mass/volume] in Serum or Plasma [2345-7] 09/03/2025 03:53 PM 282 mg/dL N Blood chemistry[[id number]] Glucose [Mass/volume] in Serum or Plasma [2345-7] 09/03/2025 09:06 AM 187 mg/dL N Blood chemistry[[id number]] Glucose [Mass/volume] in Serum or Plasma [2345-7] 09/03/2025 12:07 PM 178 mg/dL N Blood chemistry[[id number]] Glucose [Mass/volume] in Serum or Plasma [2345-7] 09/03/2025 05:42 PM 143 mg/dL N Blood chemistry[[id number]] Glucose [Mass/volume] in Serum or Plasma [2345-7] 09/02/2025 04:09 PM 409 mg/dL N Blood chemistry[[id number]] Glucose [Mass/volume] in Serum or Plasma [2345-7] 09/02/2025 09:33 AM 202 mg/dL N Blood chemistry[[id number]] Glucose [Mass/volume] in Serum or Plasma [2345-7] 09/02/2025 12:02 PM 155 mg/dL N Blood chemistry[[id number]] Glucose [Mass/volume] in Serum or Plasma [2345-7] 09/01/2025 12:35 PM 175 mg/dL N Blood chemistry[[id number]] Glucose [Mass/volume] in Serum or Plasma [2345-7] 09/01/2025 04:08 PM 136 mg/dL N Glucose [Mass/volume] in Serum or Plasma [2345-7] 09/01/2025 04:08 PM 136 mg/dL N Blood chemistry[[id number]] Glucose [Mass/volume] in Serum or Plasma [2345-7] 09/01/2025 08:23 AM 236 mg/dL N Blood chemistry[[id number]] Glucose [Mass/volume] in Serum or Plasma [2345-7] 09/01/2025 12:32 PM 116 mg/dL N Blood chemistry[[id number]] Glucose [Mass/volume] in Serum or Plasma [2345-7] 08/31/2025 05:16 PM 302 mg/dL N Blood chemistry[[id number]] Glucose [Mass/volume] in Serum or Plasma [2345-7] 08/31/2025 09:05 AM 122 mg/dL N Blood chemistry[[id number]] Glucose [Mass/volume] in Serum or Plasma [2345-7] 08/31/2025 11:51 AM 133 mg/dL N Blood chemistry[[id number]] Glucose [Mass/volume] in Serum or Plasma [2345-7] 08/30/2025 12:37 PM 229 mg/dL N Blood chemistry[[id number]] Glucose [Mass/volume] in Serum or Plasma [2345-7] 08/30/2025 04:28 PM 245 mg/dL N Blood chemistry[[id number]] Glucose [Mass/volume] in Serum or Plasma [2345-7] 08/30/2025 02:43 PM 164 mg/dL N Blood chemistry[[id number]] Glucose [Mass/volume] in Serum or Plasma [2345-7] 08/30/2025 09:34 AM 215 mg/dL N Blood chemistry[[id number]] Glucose [Mass/volume] in Serum or Plasma [2345-7] 08/29/2025 12:41 PM 225 mg/dL N Blood chemistry[[id number]] Glucose [Mass/volume] in Serum or Plasma [2345-7] 08/29/2025 05:59 PM 199 mg/dL N Blood chemistry[[id number]] Glucose [Mass/volume] in Serum or Plasma [2345-7] 08/29/2025 09:14 AM 216 mg/dL N Blood chemistry[[id number]] Glucose [Mass/volume] in Serum or Plasma [2345-7] 08/29/2025 12:59 PM 200 mg/dL N Blood chemistry[[id number]] Glucose [Mass/volume] in Serum or Plasma [2345-7] 08/28/2025 12:59 PM 211 mg/dL N Blood chemistry[[id number]] Glucose [Mass/volume] in Serum or Plasma [2345-7] 08/28/2025 04:38 PM 187 mg/dL N Blood chemistry[[id number]] Glucose [Mass/volume] in Serum or Plasma [2345-7] 08/28/2025 09:24 AM 224 mg/dL N Blood chemistry[[id number]] Glucose [Mass/volume] in Serum or Plasma [2345-7] 08/28/2025 12:11 PM 137 mg/dL N Blood chemistry[[id number]] Glucose [Mass/volume] in Serum or Plasma [2345-7] 08/27/2025 04:09 PM 278 mg/dL N Blood chemistry[[id number]] Glucose [Mass/volume] in Serum or Plasma [2345-7] 08/27/2025 10:22 AM 206 mg/dL N Blood chemistry[[id number]] Glucose [Mass/volume] in Serum or Plasma [2345-7] 08/27/2025 06:59 AM 192 mg/dL N Blood chemistry[[id number]] Glucose [Mass/volume] in Serum or Plasma [2345-7] 08/27/2025 12:53 PM 159 mg/dL N Blood chemistry[[id number]] Glucose [Mass/volume] in Serum or Plasma [2345-7] 08/26/2025 03:29 PM 161 mg/dL N Blood chemistry[[id number]] Glucose [Mass/volume] in Serum or Plasma [2345-7] 08/26/2025 10:13 AM 201 mg/dL N Blood chemistry[[id number]] Glucose [Mass/volume] in Serum or Plasma [2345-7] 08/26/2025 05:17 PM 212 mg/dL N Blood chemistry[[id number]] Glucose [Mass/volume] in Serum or Plasma [2345-7] 08/26/2025 01:15 PM 160 mg/dL N Blood chemistry[[id number]] Glucose [Mass/volume] in Serum or Plasma [2345-7] 08/25/2025 02:49 PM 209 mg/dL N Blood chemistry[[id number]] Glucose [Mass/volume] in Serum or Plasma [2345-7] 08/25/2025 04:36 PM 128 mg/dL N Blood chemistry[[id number]] Glucose [Mass/volume] in Serum or Plasma [2345-7] 08/25/2025 09:21 AM 218 mg/dL N Blood chemistry[[id number]] Glucose [Mass/volume] in Serum or Plasma [2345-7] 08/25/2025 12:12 PM 208 mg/dL N Blood chemistry[[id number]] Glucose [Mass/volume] in Serum or Plasma [2345-7] 08/24/2025 11:56 AM 241 mg/dL N Blood chemistry[[id number]] Glucose [Mass/volume] in Serum or Plasma [2345-7] 08/24/2025 11:06 AM 189 mg/dL N Blood chemistry[[id number]] Glucose [Mass/volume] in Serum or Plasma [2345-7] 08/24/2025 05:34 PM 149 mg/dL N Blood chemistry[[id number]] Glucose [Mass/volume] in Serum or Plasma [2345-7] 08/23/2025 12:05 PM 244 mg/dL N Blood chemistry[[id number]] Glucose [Mass/volume] in Serum or Plasma [2345-7] 08/23/2025 10:43 AM 168 mg/dL N Blood chemistry[[id number]] Glucose [Mass/volume] in Serum or Plasma [2345-7] 08/23/2025 04:40 PM 326 mg/dL N Blood chemistry[[id number]] Glucose [Mass/volume] in Serum or Plasma [2345-7] 08/23/2025 02:57 PM 148 mg/dL N Blood chemistry[[id number]] Glucose [Mass/volume] in Serum or Plasma [2345-7] 08/22/2025 12:26 PM 222 mg/dL N Blood chemistry[[id number]] Glucose [Mass/volume] in Serum or Plasma [2345-7] 08/22/2025 04:43 PM 247 mg/dL N Blood chemistry[[id number]] Glucose [Mass/volume] in Serum or Plasma [2345-7] 08/22/2025 04:42 PM 247 mg/dL N Blood chemistry[[id number]] Glucose [Mass/volume] in Serum or Plasma [2345-7] 08/22/2025 09:16 AM 164 mg/dL N Blood chemistry[[id number]] Glucose [Mass/volume] in Serum or Plasma [2345-7] 08/22/2025 01:05 PM 172 mg/dL N Blood chemistry[[id number]] Glucose [Mass/volume] in Serum or Plasma [2345-7] 08/21/2025 12:28 PM 194 mg/dL N Blood chemistry[[id number]] Glucose [Mass/volume] in Serum or Plasma [2345-7] 08/21/2025 04:24 PM 147 mg/dL N Blood chemistry[[id number]] Glucose [Mass/volume] in Serum or Plasma [2345-7] 08/21/2025 08:37 AM 235 mg/dL N Blood chemistry[[id number]] Glucose [Mass/volume] in Serum or Plasma [2345-7] 08/21/2025 01:58 PM 143 mg/dL N Blood chemistry[[id number]] Glucose [Mass/volume] in Serum or Plasma [2345-7] 08/20/2025 12:42 PM 194 mg/dL N Blood chemistry[[id number]] Glucose [Mass/volume] in Serum or Plasma [2345-7] 08/20/2025 04:17 PM 121 mg/dL N Blood chemistry[[id number]] Glucose [Mass/volume] in Serum or Plasma [2345-7] 08/20/2025 09:12 AM 142 mg/dL N Blood chemistry[[id number]] Glucose [Mass/volume] in Serum or Plasma [2345-7] 08/20/2025 01:24 PM 140 mg/dL N Blood chemistry[[id number]] Glucose [Mass/volume] in Serum or Plasma [2345-7] 08/20/2025 12:38 PM 140 mg/dL N Blood chemistry[[id number]] Glucose [Mass/volume] in Serum or Plasma [2345-7] 08/20/2025 05:28 PM 133 mg/dL N Blood chemistry[[id number]] Glucose [Mass/volume] in Serum or Plasma [2345-7] 08/19/2025 04:07 PM 195 mg/dL N Blood chemistry[[id number]] Glucose [Mass/volume] in Serum or Plasma [2345-7] 08/19/2025 12:47 PM 151 mg/dL N Blood chemistry[[id number]] Glucose [Mass/volume] in Serum or Plasma [2345-7] 08/19/2025 09:53 AM 170 mg/dL N Blood chemistry[[id number]] Glucose [Mass/volume] in Serum or Plasma [2345-7] 08/19/2025 06:22 AM 161 mg/dL N Blood chemistry[[id number]] Glucose [Mass/volume] in Serum or Plasma [2345-7] 08/18/2025 03:59 PM 273 mg/dL N Blood chemistry[[id number]] Glucose [Mass/volume] in Serum or Plasma [2345-7] 08/18/2025 03:54 PM 273 mg/dL N Blood chemistry[[id number]] Glucose [Mass/volume] in Serum or Plasma [2345-7] 08/18/2025 08:27 AM 191 mg/dL N Blood chemistry[[id number]] Glucose [Mass/volume] in Serum or Plasma [2345-7] 08/18/2025 12:15 PM 199 mg/dL N Blood chemistry[[id number]] Glucose [Mass/volume] in Serum or Plasma [2345-7] 08/17/2025 12:33 PM 215 mg/dL N Blood chemistry[[id number]] Glucose [Mass/volume] in Serum or Plasma [2345-7] 08/17/2025 11:57 AM 178 mg/dL N Glucose [Mass/volume] in Serum or Plasma [2345-7] 08/17/2025 11:57 AM 264 mg/dL N Blood chemistry[[id number]] Glucose [Mass/volume] in Serum or Plasma [2345-7] 08/17/2025 11:56 AM 178 mg/dL N Glucose [Mass/volume] in Serum or Plasma [2345-7] 08/17/2025 11:56 AM 264 mg/dL N Blood chemistry[[id number]] Glucose [Mass/volume] in Serum or Plasma [2345-7] 08/17/2025 01:44 PM 288 mg/dL N Blood chemistry[[id number]] Glucose [Mass/volume] in Serum or Plasma [2345-7] 08/16/2025 12:00 PM 275 mg/dL N Blood chemistry[[id number]] Glucose [Mass/volume] in Serum or Plasma [2345-7] 08/16/2025 05:36 PM 274 mg/dL N Blood chemistry[[id number]] Glucose [Mass/volume] in Serum or Plasma [2345-7] 08/16/2025 10:10 AM 296 mg/dL N Blood chemistry[[id number]] Glucose [Mass/volume] in Serum or Plasma [2345-7] 08/16/2025 01:05 PM 279 mg/dL N Blood chemistry[[id number]] Glucose [Mass/volume] in Serum or Plasma [2345-7] 08/15/2025 12:34 PM 244 mg/dL N Blood chemistry[[id number]] Glucose [Mass/volume] in Serum or Plasma [2345-7] 08/15/2025 10:37 AM 261 mg/dL N Blood chemistry[[id number]] Glucose [Mass/volume] in Serum or Plasma [2345-7] 08/15/2025 07:10 AM 123 mg/dL N Blood chemistry[[id number]] Glucose [Mass/volume] in Serum or Plasma [2345-7] 08/15/2025 01:25 PM 104 mg/dL N Blood chemistry[[id number]] Glucose [Mass/volume] in Serum or Plasma [2345-7] 08/14/2025 12:07 PM 167 mg/dL N Blood chemistry[[id number]] Glucose [Mass/volume] in Serum or Plasma [2345-7] 08/14/2025 04:26 PM 165 mg/dL N Blood chemistry[[id number]] Glucose [Mass/volume] in Serum or Plasma [2345-7] 08/14/2025 09:40 AM 225 mg/dL N Blood chemistry[[id number]] Glucose [Mass/volume] in Serum or Plasma [2345-7] 08/14/2025 12:45 PM 126 mg/dL N Blood chemistry[[id number]] Glucose [Mass/volume] in Serum or Plasma [2345-7] 08/14/2025 05:03 PM 133 mg/dL N Blood chemistry[[id number]] Glucose [Mass/volume] in Serum or Plasma [2345-7] 08/13/2025 04:43 PM 201 mg/dL N Blood chemistry[[id number]] Glucose [Mass/volume] in Serum or Plasma [2345-7] 08/13/2025 10:08 AM 152 mg/dL N Blood chemistry[[id number]] Glucose [Mass/volume] in Serum or Plasma [2345-7] 08/13/2025 09:53 AM 142 mg/dL N Blood chemistry[[id number]] Glucose [Mass/volume] in Serum or Plasma [2345-7] 08/13/2025 01:36 PM 106 mg/dL N Blood chemistry[[id number]] Glucose [Mass/volume] in Serum or Plasma [2345-7] 08/12/2025 04:09 PM 196 mg/dL N Blood chemistry[[id number]] Glucose [Mass/volume] in Serum or Plasma [2345-7] 08/12/2025 10:38 AM 179 mg/dL N Blood chemistry[[id number]] Glucose [Mass/volume] in Serum or Plasma [2345-7] 08/12/2025 05:51 PM 167 mg/dL N Blood chemistry[[id number]] Glucose [Mass/volume] in Serum or Plasma [2345-7] 08/12/2025 02:02 PM 112 mg/dL N Blood chemistry[[id number]] Glucose [Mass/volume] in Serum or Plasma [2345-7] 08/12/2025 05:50 PM 151 mg/dL N Blood chemistry[[id number]] Glucose [Mass/volume] in Serum or Plasma [2345-7] 08/11/2025 03:41 PM 127 mg/dL N Blood chemistry[[id number]] Glucose [Mass/volume] in Serum or Plasma [2345-7] 08/11/2025 09:00 AM 162 mg/dL N Blood chemistry[[id number]] Glucose [Mass/volume] in Serum or Plasma [2345-7] 08/11/2025 12:23 PM 121 mg/dL N Blood chemistry[[id number]] Glucose [Mass/volume] in Serum or Plasma [2345-7] 08/10/2025 12:56 PM 161 mg/dL N Blood chemistry[[id number]] Glucose [Mass/volume] in Serum or Plasma [2345-7] 08/10/2025 10:39 AM 205 mg/dL N Glucose [Mass/volume] in Serum or Plasma [2345-7] 08/10/2025 10:39 AM 205 mg/dL N Blood chemistry[[id number]] Glucose [Mass/volume] in Serum or Plasma [2345-7] 08/10/2025 04:29 PM 178 mg/dL N Blood chemistry[[id number]] Glucose [Mass/volume] in Serum or Plasma [2345-7] 08/10/2025 02:29 PM 134 mg/dL N Blood chemistry[[id number]] Glucose [Mass/volume] in Serum or Plasma [2345-7] 08/09/2025 12:30 PM 185 mg/dL N Blood chemistry[[id number]] Glucose [Mass/volume] in Serum or Plasma [2345-7] 08/09/2025 04:13 PM 149 mg/dL N Blood chemistry[[id number]] Glucose [Mass/volume] in Serum or Plasma [2345-7] 08/09/2025 09:45 AM 167 mg/dL N Blood chemistry[[id number]] Glucose [Mass/volume] in Serum or Plasma [2345-7] 08/09/2025 08:59 AM 167 mg/dL N Blood chemistry[[id number]] Glucose [Mass/volume] in Serum or Plasma [2345-7] 08/09/2025 12:00 PM 111 mg/dL N Blood chemistry[[id number]] Glucose [Mass/volume] in Serum or Plasma [2345-7] 08/08/2025 12:13 PM 233 mg/dL N Blood chemistry[[id number]] Glucose [Mass/volume] in Serum or Plasma [2345-7] 08/08/2025 05:01 PM 174 mg/dL N Blood chemistry[[id number]] Glucose [Mass/volume] in Serum or Plasma [2345-7] 08/08/2025 09:19 AM 193 mg/dL N Blood chemistry[[id number]] Glucose [Mass/volume] in Serum or Plasma [2345-7] 08/08/2025 01:44 PM 134 mg/dL N Blood chemistry[[id number]] Glucose [Mass/volume] in Serum or Plasma [2345-7] 08/07/2025 12:01 PM 154 mg/dL N Blood chemistry[[id number]] Glucose [Mass/volume] in Serum or Plasma [2345-7] 08/07/2025 04:35 PM 139 mg/dL N Blood chemistry[[id number]] Glucose [Mass/volume] in Serum or Plasma [2345-7] 08/07/2025 09:42 AM 151 mg/dL N Blood chemistry[[id number]] Glucose [Mass/volume] in Serum or Plasma [2345-7] 08/07/2025 12:36 PM 206 mg/dL N Blood chemistry[[id number]] Glucose [Mass/volume] in Serum or Plasma [2345-7] 08/06/2025 01:15 PM 182 mg/dL N Blood chemistry[[id number]] Glucose [Mass/volume] in Serum or Plasma [2345-7] 08/06/2025 03:51 PM 182 mg/dL N Blood chemistry[[id number]] Glucose [Mass/volume] in Serum or Plasma [2345-7] 08/06/2025 08:40 AM 184 mg/dL N Blood chemistry[[id number]] Glucose [Mass/volume] in Serum or Plasma [2345-7] 08/06/2025 12:36 PM 142 mg/dL N Blood chemistry[[id number]] Glucose [Mass/volume] in Serum or Plasma [2345-7] 08/05/2025 02:07 PM 183 mg/dL N Blood chemistry[[id number]] Glucose [Mass/volume] in Serum or Plasma [2345-7] 08/05/2025 03:32 PM 155 mg/dL N Blood chemistry[[id number]] Glucose [Mass/volume] in Serum or Plasma [2345-7] 08/05/2025 09:26 AM 184 mg/dL N Blood chemistry[[id number]] Glucose [Mass/volume] in Serum or Plasma [2345-7] 08/05/2025 12:27 PM 115 mg/dL N Blood chemistry[[id number]] Glucose [Mass/volume] in Serum or Plasma [2345-7] 08/04/2025 04:34 PM 103 mg/dL N Blood chemistry[[id number]] Glucose [Mass/volume] in Serum or Plasma [2345-7] 08/04/2025 04:12 PM 143 mg/dL N Blood chemistry[[id number]] Glucose [Mass/volume] in Serum or Plasma [2345-7] 08/04/2025 09:01 AM 125 mg/dL N Blood chemistry[[id number]] Glucose [Mass/volume] in Serum or Plasma [2345-7] 08/04/2025 12:26 PM 114 mg/dL N Blood chemistry[[id number]] Glucose [Mass/volume] in Serum or Plasma [2345-7] 08/04/2025 11:49 AM 114 mg/dL N Blood chemistry[[id number]] Glucose [Mass/volume] in Serum or Plasma [2345-7] 08/03/2025 02:31 PM 137 mg/dL N Blood chemistry[[id number]] Glucose [Mass/volume] in Serum or Plasma [2345-7] 08/03/2025 11:51 AM 148 mg/dL N Blood chemistry[[id number]] Glucose [Mass/volume] in Serum or Plasma [2345-7] 08/03/2025 05:29 PM 102 mg/dL N Blood chemistry[[id number]] Glucose [Mass/volume] in Serum or Plasma [2345-7] 08/03/2025 01:07 PM 132 mg/dL N Blood chemistry[[id number]] Glucose [Mass/volume] in Serum or Plasma [2345-7] 08/02/2025 04:19 PM 140 mg/dL N Blood chemistry[[id number]] Glucose [Mass/volume] in Serum or Plasma [2345-7] 08/02/2025 02:35 PM 107 mg/dL N Blood chemistry[[id number]] Glucose [Mass/volume] in Serum or Plasma [2345-7] 08/02/2025 01:00 PM 107 mg/dL N Blood chemistry[[id number]] Glucose [Mass/volume] in Serum or Plasma [2345-7] 08/02/2025 09:12 AM 123 mg/dL N Blood chemistry[[id number]] Glucose [Mass/volume] in Serum or Plasma [2345-7] 08/02/2025 06:05 AM 136 mg/dL N Blood chemistry[[id number]] Glucose [Mass/volume] in Serum or Plasma [2345-7] 08/01/2025 12:44 PM 145 mg/dL N Blood chemistry[[id number]] Glucose [Mass/volume] in Serum or Plasma [2345-7] 08/01/2025 10:30 AM 171 mg/dL N Blood chemistry[[id number]] Glucose [Mass/volume] in Serum or Plasma [2345-7] 08/01/2025 05:52 PM 143 mg/dL N Blood chemistry[[id number]] Glucose [Mass/volume] in Serum or Plasma [2345-7] 08/01/2025 12:59 PM 109 mg/dL N Blood chemistry[[id number]] Glucose [Mass/volume] in Serum or Plasma [2345-7] 07/31/2025 01:21 PM 159 mg/dL N Blood chemistry[[id number]] Glucose [Mass/volume] in Serum or Plasma [2345-7] 07/31/2025 03:58 PM 147 mg/dL N Blood chemistry[[id number]] Glucose [Mass/volume] in Serum or Plasma [2345-7] 07/31/2025 08:51 AM 147 mg/dL N Blood chemistry[[id number]] Glucose [Mass/volume] in Serum or Plasma [2345-7] 07/31/2025 12:06 PM 103 mg/dL N Blood chemistry[[id number]] Glucose [Mass/volume] in Serum or Plasma [2345-7] 07/30/2025 02:42 PM 124 mg/dL N Blood chemistry[[id number]] Glucose [Mass/volume] in Serum or Plasma [2345-7] 07/30/2025 12:06 PM 124 mg/dL N Blood chemistry[[id number]] Glucose [Mass/volume] in Serum or Plasma [2345-7] 07/30/2025 05:16 PM 120 mg/dL N Blood chemistry[[id number]] Glucose [Mass/volume] in Serum or Plasma [2345-7] 07/30/2025 02:08 PM 94 mg/dL N Blood chemistry[[id number]] Glucose [Mass/volume] in Serum or Plasma [2345-7] 07/29/2025 02:27 PM 163 mg/dL N Blood chemistry[[id number]] Glucose [Mass/volume] in Serum or Plasma [2345-7] 07/29/2025 10:58 AM 126 mg/dL N Blood chemistry[[id number]] Glucose [Mass/volume] in Serum or Plasma [2345-7] 07/29/2025 05:16 PM 134 mg/dL N Blood chemistry[[id number]] Glucose [Mass/volume] in Serum or Plasma [2345-7] 07/29/2025 01:54 PM 134 mg/dL N Blood chemistry[[id number]] Glucose [Mass/volume] in Serum or Plasma [2345-7] 07/28/2025 04:25 PM 88 mg/dL N Blood chemistry[[id number]] Glucose [Mass/volume] in Serum or Plasma [2345-7] 07/28/2025 04:04 PM 136 mg/dL N Blood chemistry[[id number]] Glucose [Mass/volume] in Serum or Plasma [2345-7] 07/28/2025 08:27 AM 106 mg/dL N Blood chemistry[[id number]] Glucose [Mass/volume] in Serum or Plasma [2345-7] 07/28/2025 11:52 AM 106 mg/dL N Blood chemistry[[id number]] Glucose [Mass/volume] in Serum or Plasma [2345-7] 07/27/2025 12:35 PM 111 mg/dL N Blood chemistry[[id number]] Glucose [Mass/volume] in Serum or Plasma [2345-7] 07/27/2025 10:14 AM 114 mg/dL N Blood chemistry[[id number]] Glucose [Mass/volume] in Serum or Plasma [2345-7] 07/27/2025 07:21 AM 158 mg/dL N Glucose [Mass/volume] in Serum or Plasma [2345-7] 07/27/2025 07:21 AM 158 mg/dL N Blood chemistry[[id number]] Glucose [Mass/volume] in Serum or Plasma [2345-7] 07/27/2025 01:30 PM 140 mg/dL N Blood chemistry[[id number]] Glucose [Mass/volume] in Serum or Plasma [2345-7] 07/26/2025 01:42 PM 140 mg/dL N Blood chemistry[[id number]] Glucose [Mass/volume] in Serum or Plasma [2345-7] 07/26/2025 04:46 PM 265 mg/dL N Blood chemistry[[id number]] Glucose [Mass/volume] in Serum or Plasma [2345-7] 07/26/2025 08:49 AM 155 mg/dL N Blood chemistry[[id number]] Glucose [Mass/volume] in Serum or Plasma [2345-7] 07/26/2025 08:30 AM 155 mg/dL N Blood chemistry[[id number]] Glucose [Mass/volume] in Serum or Plasma [2345-7] 07/26/2025 11:35 AM 233 mg/dL N Blood chemistry[[id number]] Glucose [Mass/volume] in Serum or Plasma [2345-7] 07/25/2025 11:57 AM 241 mg/dL N Blood chemistry[[id number]] Glucose [Mass/volume] in Serum or Plasma [2345-7] 07/25/2025 04:01 PM 174 mg/dL N Blood chemistry[[id number]] Glucose [Mass/volume] in Serum or Plasma [2345-7] 07/25/2025 09:39 AM 254 mg/dL N Blood chemistry[[id number]] Glucose [Mass/volume] in Serum or Plasma [2345-7] 07/25/2025 01:55 PM 205 mg/dL N Blood chemistry[[id number]] Glucose [Mass/volume] in Serum or Plasma [2345-7] 07/25/2025 12:32 PM 205 mg/dL N Blood chemistry[[id number]] Glucose [Mass/volume] in Serum or Plasma [2345-7] 07/24/2025 12:38 PM 197 mg/dL N Blood chemistry[[id number]] Glucose [Mass/volume] in Serum or Plasma [2345-7] 07/24/2025 05:38 PM 220 mg/dL N Blood chemistry[[id number]] Glucose [Mass/volume] in Serum or Plasma [2345-7] 07/24/2025 10:00 AM 169 mg/dL N Blood chemistry[[id number]] Glucose [Mass/volume] in Serum or Plasma [2345-7] 07/24/2025 01:33 PM 229 mg/dL N Blood chemistry[[id number]] Glucose [Mass/volume] in Serum or Plasma [2345-7] 07/24/2025 05:45 PM 171 mg/dL N Blood chemistry[[id number]] Glucose [Mass/volume] in Serum or Plasma [2345-7] 07/23/2025 04:58 PM 159 mg/dL N Blood chemistry[[id number]] Glucose [Mass/volume] in Serum or Plasma [2345-7] 07/23/2025 09:25 AM 169 mg/dL N Blood chemistry[[id number]] Glucose [Mass/volume] in Serum or Plasma [2345-7] 07/23/2025 12:34 PM 137 mg/dL N Blood chemistry[[id number]] Glucose [Mass/volume] in Serum or Plasma [2345-7] 07/22/2025 03:11 PM 230 mg/dL N Blood chemistry[[id number]] Glucose [Mass/volume] in Serum or Plasma [2345-7] 07/22/2025 04:08 PM 215 mg/dL N Blood chemistry[[id number]] Glucose [Mass/volume] in Serum or Plasma [2345-7] 07/22/2025 09:09 AM 165 mg/dL N Blood chemistry[[id number]] Glucose [Mass/volume] in Serum or Plasma [2345-7] 07/22/2025 12:43 PM 165 mg/dL N Glucose [Mass/volume] in Serum or Plasma [2345-7] 07/22/2025 12:43 PM 165 mg/dL N Blood chemistry[[id number]] Glucose [Mass/volume] in Serum or Plasma [2345-7] 07/21/2025 04:28 PM 242 mg/dL N Blood chemistry[[id number]] Glucose [Mass/volume] in Serum or Plasma [2345-7] 07/21/2025 03:53 PM 166 mg/dL N Blood chemistry[[id number]] Glucose [Mass/volume] in Serum or Plasma [2345-7] 07/21/2025 08:40 AM 199 mg/dL N Blood chemistry[[id number]] Glucose [Mass/volume] in Serum or Plasma [2345-7] 07/21/2025 11:41 AM 129 mg/dL N Blood chemistry[[id number]] Glucose [Mass/volume] in Serum or Plasma [2345-7] 07/20/2025 12:18 PM 220 mg/dL N Blood chemistry[[id number]] Glucose [Mass/volume] in Serum or Plasma [2345-7] 07/20/2025 10:50 AM 231 mg/dL N Blood chemistry[[id number]] Glucose [Mass/volume] in Serum or Plasma [2345-7] 07/20/2025 04:44 PM 241 mg/dL N Blood chemistry[[id number]] Glucose [Mass/volume] in Serum or Plasma [2345-7] 07/20/2025 01:18 PM 170 mg/dL N Blood chemistry[[id number]] Glucose [Mass/volume] in Serum or Plasma [2345-7] 07/19/2025 12:13 PM 230 mg/dL N Blood chemistry[[id number]] Glucose [Mass/volume] in Serum or Plasma [2345-7] 07/19/2025 04:33 PM 219 mg/dL N Blood chemistry[[id number]] Glucose [Mass/volume] in Serum or Plasma [2345-7] 07/19/2025 08:36 AM 265 mg/dL N Blood chemistry[[id number]] Glucose [Mass/volume] in Serum or Plasma [2345-7] 07/19/2025 12:41 PM 206 mg/dL N Blood chemistry[[id number]] Glucose [Mass/volume] in Serum or Plasma [2345-7] 07/18/2025 12:08 PM 242 mg/dL N Blood chemistry[[id number]] Glucose [Mass/volume] in Serum or Plasma [2345-7] 07/18/2025 04:16 PM 190 mg/dL N Blood chemistry[[id number]] Glucose [Mass/volume] in Serum or Plasma [2345-7] 07/18/2025 08:50 AM 236 mg/dL N Blood chemistry[[id number]] Glucose [Mass/volume] in Serum or Plasma [2345-7] 07/18/2025 11:54 AM 149 mg/dL N Blood chemistry[[id number]] Glucose [Mass/volume] in Serum or Plasma [2345-7] 07/17/2025 04:00 PM 190 mg/dL N Blood chemistry[[id number]] Glucose [Mass/volume] in Serum or Plasma [2345-7] 07/17/2025 12:24 PM 314 mg/dL N Blood chemistry[[id number]] Glucose [Mass/volume] in Serum or Plasma [2345-7] 07/17/2025 09:16 AM 286 mg/dL N Blood chemistry[[id number]] Glucose [Mass/volume] in Serum or Plasma [2345-7] 07/17/2025 12:46 PM 208 mg/dL N Blood chemistry[[id number]] Glucose [Mass/volume] in Serum or Plasma [2345-7] 07/17/2025 11:34 AM 208 mg/dL N Blood chemistry[[id number]] Glucose [Mass/volume] in Serum or Plasma [2345-7] 07/17/2025 05:25 PM 235 mg/dL N Blood chemistry[[id number]] Glucose [Mass/volume] in Serum or Plasma [2345-7] 07/16/2025 04:19 PM 196 mg/dL N Blood chemistry[[id number]] Glucose [Mass/volume] in Serum or Plasma [2345-7] 07/16/2025 04:18 PM 196 mg/dL N Blood chemistry[[id number]] Glucose [Mass/volume] in Serum or Plasma [2345-7] 07/16/2025 09:42 AM 363 mg/dL N Glucose [Mass/volume] in Serum or Plasma [5-7] 07/16/2025 09:42 AM 363 mg/dL N Blood chemistry[[id number]] Glucose [Mass/volume] in Serum or Plasma [2345-7] 07/16/2025 12:19 PM 161 mg/dL N Blood chemistry[[id number]] Glucose [Mass/volume] in Serum or Plasma [2345-7] 07/16/2025 12:18 PM 161 mg/dL N Blood chemistry[[id number]] Glucose [Mass/volume] in Serum or Plasma [2345-7] 07/16/2025 05:23 PM 214 mg/dL N Blood chemistry[[id number]] Glucose [Mass/volume] in Serum or Plasma [2345-7] 07/15/2025 03:27 PM 185 mg/dL N Blood chemistry[[id number]] Glucose [Mass/volume] in Serum or Plasma [2345-7] 07/15/2025 09:17 AM 217 mg/dL N Blood chemistry[[id number]] Glucose [Mass/volume] in Serum or Plasma [2345-7] 07/15/2025 11:50 AM 141 mg/dL N Blood chemistry[[id number]] Glucose [Mass/volume] in Serum or Plasma [2345-7] 07/14/2025 04:31 PM 174 mg/dL N Glucose [Mass/volume] in Serum or Plasma [5-7] 07/14/2025 04:31 PM 175 mg/dL N Blood chemistry[[id number]] Glucose [Mass/volume] in Serum or Plasma [2345-7] 07/14/2025 09:04 AM 225 mg/dL N Blood chemistry[[id number]] Glucose [Mass/volume] in Serum or Plasma [2345-7] 07/14/2025 01:00 PM 110 mg/dL N Blood chemistry[[id number]] Glucose [Mass/volume] in Serum or Plasma [2345-7] 07/13/2025 04:38 PM 233 mg/dL N Blood chemistry[[id number]] Glucose [Mass/volume] in Serum or Plasma [2345-7] 07/13/2025 02:51 PM 143 mg/dL N Blood chemistry[[id number]] Glucose [Mass/volume] in Serum or Plasma [2345-7] 07/13/2025 02:33 PM 218 mg/dL N Blood chemistry[[id number]] Glucose [Mass/volume] in Serum or Plasma [2345-7] 07/13/2025 02:32 PM 218 mg/dL N Blood chemistry[[id number]] Glucose [Mass/volume] in Serum or Plasma [2345-7] 07/13/2025 09:02 AM 219 mg/dL N Blood chemistry[[id number]] Glucose [Mass/volume] in Serum or Plasma [2345-7] 07/13/2025 09:01 AM 219 mg/dL N Blood chemistry[[id number]] Glucose [Mass/volume] in Serum or Plasma [2345-7] 07/12/2025 04:34 PM 204 mg/dL N Blood chemistry[[id number]] Glucose [Mass/volume] in Serum or Plasma [2345-7] 07/12/2025 12:05 PM 209 mg/dL N Blood chemistry[[id number]] Glucose [Mass/volume] in Serum or Plasma [2345-7] 07/12/2025 11:46 AM 143 mg/dL N Blood chemistry[[id number]] Glucose [Mass/volume] in Serum or Plasma [2345-7] 07/12/2025 08:57 AM 258 mg/dL N Blood chemistry[[id number]] Glucose [Mass/volume] in Serum or Plasma [2345-7] 07/11/2025 03:39 PM 261 mg/dL N Blood chemistry[[id number]] Glucose [Mass/volume] in Serum or Plasma [2345-7] 07/11/2025 12:35 PM 225 mg/dL N Blood chemistry[[id number]] Glucose [Mass/volume] in Serum or Plasma [2345-7] 07/11/2025 11:28 AM 253 mg/dL N Blood chemistry[[id number]] Glucose [Mass/volume] in Serum or Plasma [2345-7] 07/11/2025 08:43 AM 337 mg/dL N Blood chemistry[[id number]] Glucose [Mass/volume] in Serum or Plasma [2345-7] 07/10/2025 05:00 PM 210 mg/dL N Blood chemistry[[id number]] Glucose [Mass/volume] in Serum or Plasma [2345-7] 07/10/2025 03:48 PM 213 mg/dL N Blood chemistry[[id number]] Glucose [Mass/volume] in Serum or Plasma [2345-7] 07/10/2025 02:50 PM 161 mg/dL N Blood chemistry[[id number]] Glucose [Mass/volume] in Serum or Plasma [2345-7] 07/10/2025 01:20 PM 156 mg/dL N Blood chemistry[[id number]] Glucose [Mass/volume] in Serum or Plasma [2345-7] 07/10/2025 12:03 PM 156 mg/dL N Blood chemistry[[id number]] Glucose [Mass/volume] in Serum or Plasma [2345-7] 07/10/2025 08:39 AM 269 mg/dL N Blood chemistry[[id number]] Glucose [Mass/volume] in Serum or Plasma [2345-7] 07/09/2025 03:49 PM 198 mg/dL N Blood chemistry[[id number]] Glucose [Mass/volume] in Serum or Plasma [2345-7] 07/09/2025 12:20 PM 145 mg/dL N Blood chemistry[[id number]] Glucose [Mass/volume] in Serum or Plasma [2345-7] 07/09/2025 11:30 AM 145 mg/dL N Blood chemistry[[id number]] Glucose [Mass/volume] in Serum or Plasma [2345-7] 07/09/2025 09:16 AM 233 mg/dL N Blood chemistry[[id number]] Glucose [Mass/volume] in Serum or Plasma [2345-7] 07/08/2025 04:38 PM 172 mg/dL N Blood chemistry[[id number]] Glucose [Mass/volume] in Serum or Plasma [2345-7] 07/08/2025 04:00 PM 165 mg/dL N Blood chemistry[[id number]] Glucose [Mass/volume] in Serum or Plasma [2345-7] 07/08/2025 12:20 PM 119 mg/dL N Blood chemistry[[id number]] Glucose [Mass/volume] in Serum or Plasma [2345-7] 07/08/2025 08:53 AM 193 mg/dL N Blood chemistry[[id number]] Glucose [Mass/volume] in Serum or Plasma [2345-7] 07/07/2025 04:52 PM 183 mg/dL N Blood chemistry[[id number]] Glucose [Mass/volume] in Serum or Plasma [2345-7] 07/07/2025 04:44 PM 146 mg/dL N Blood chemistry[[id number]] Glucose [Mass/volume] in Serum or Plasma [2345-7] 07/07/2025 11:56 AM 116 mg/dL N Blood chemistry[[id number]] Glucose [Mass/volume] in Serum or Plasma [2345-7] 07/07/2025 09:54 AM 158 mg/dL N Blood chemistry[[id number]] Glucose [Mass/volume] in Serum or Plasma [2345-7] 07/06/2025 04:41 PM 143 mg/dL N Blood chemistry[[id number]] Glucose [Mass/volume] in Serum or Plasma [2345-7] 07/06/2025 02:17 PM 110 mg/dL N Blood chemistry[[id number]] Glucose [Mass/volume] in Serum or Plasma [2345-7] 07/06/2025 12:34 PM 214 mg/dL N Blood chemistry[[id number]] Glucose [Mass/volume] in Serum or Plasma [2345-7] 07/06/2025 10:08 AM 201 mg/dL N Blood chemistry[[id number]] Glucose [Mass/volume] in Serum or Plasma [2345-7] 07/05/2025 04:12 PM 260 mg/dL N Blood chemistry[[id number]] Glucose [Mass/volume] in Serum or Plasma [2345-7] 07/05/2025 12:40 PM 161 mg/dL N Blood chemistry[[id number]] Glucose [Mass/volume] in Serum or Plasma [2345-7] 07/05/2025 12:21 PM 177 mg/dL N Blood chemistry[[id number]] Glucose [Mass/volume] in Serum or Plasma [5-7] 07/05/2025 09:03 AM 264 mg/dL N Blood chemistry[[id number]] Glucose [Mass/volume] in Serum or Plasma [5-7] 07/04/2025 04:26 PM 359 mg/dL N Blood chemistry[[id number]] Glucose [Mass/volume] in Serum or Plasma [2344-7] 07/04/2025 12:40 PM 182 mg/dL N Blood chemistry[[id number]] Glucose [Mass/volume] in Serum or Plasma [2344-7] 07/04/2025 12:29 PM 135 mg/dL N Blood chemistry[[id number]] Glucose [Mass/volume] in Serum or Plasma [5-7] 07/04/2025 08:54 AM 313 mg/dL N Blood chemistry[[id number]] Glucose [Mass/volume] in Serum or Plasma [5-7] 07/03/2025 05:51 PM 299 mg/dL N Blood chemistry[[id number]] Glucose [Mass/volume] in Serum or Plasma [5-7] 07/03/2025 12:50 PM 153 mg/dL N Blood chemistry[[id number]] Glucose [Mass/volume] in Serum or Plasma [2345-7] 07/03/2025 12:41 PM 249 mg/dL N Blood chemistry[[id number]] Glucose [Mass/volume] in Serum or Plasma [5-7] 07/03/2025 09:29 AM 229 mg/dL N Blood chemistry[[id number]] Glucose [Mass/volume] in Serum or Plasma [2345-7] 07/02/2025 05:23 PM 189 mg/dL N Blood chemistry[[id number]] Glucose [Mass/volume] in Serum or Plasma [2345-7] 07/02/2025 04:56 PM 203 mg/dL N Glucose [Mass/volume] in Serum or Plasma [2345-7] 07/02/2025 04:56 PM 203 mg/dL N Blood chemistry[[id number]] Glucose [Mass/volume] in Serum or Plasma [2345-7] 07/02/2025 04:18 PM 242 mg/dL N Blood chemistry[[id number]] Glucose [Mass/volume] in Serum or Plasma [2345-7] 07/02/2025 12:38 PM 161 mg/dL N Blood chemistry[[id number]] Glucose [Mass/volume] in Serum or Plasma [2345-7] 07/02/2025 12:37 PM 161 mg/dL N Blood chemistry[[id number]] Glucose [Mass/volume] in Serum or Plasma [2345-7] 07/02/2025 10:36 AM 219 mg/dL N Blood chemistry[[id number]] Glucose [Mass/volume] in Serum or Plasma [2345-7] 07/02/2025 09:20 AM 219 mg/dL N Blood chemistry[[id number]] Glucose [Mass/volume] in Serum or Plasma [2345-7] 07/01/2025 04:15 PM 230 mg/dL N Blood chemistry[[id number]] Glucose [Mass/volume] in Serum or Plasma [2345-7] 07/01/2025 04:11 PM 230 mg/dL N Blood chemistry[[id number]] Glucose [Mass/volume] in Serum or Plasma [2345-7] 07/01/2025 01:29 PM 281 mg/dL N Blood chemistry[[id number]] Glucose [Mass/volume] in Serum or Plasma [2345-7] 07/01/2025 01:27 PM 281 mg/dL N Blood chemistry[[id number]] Glucose [Mass/volume] in Serum or Plasma [2345-7] 07/01/2025 09:50 AM 241 mg/dL N Glucose [Mass/volume] in Serum or Plasma [2345-7] 07/01/2025 09:50 AM 241 mg/dL N Blood chemistry[[id number]] Glucose [Mass/volume] in Serum or Plasma [2345-7] 06/30/2025 04:51 PM 255 mg/dL N Blood chemistry[[id number]] Glucose [Mass/volume] in Serum or Plasma [2345-7] 06/30/2025 04:17 PM 167 mg/dL N Blood chemistry[[id number]] Glucose [Mass/volume] in Serum or Plasma [2345-7] 06/30/2025 11:51 AM 134 mg/dL N Blood chemistry[[id number]] Glucose [Mass/volume] in Serum or Plasma [2345-7] 06/30/2025 08:58 AM 248 mg/dL N Blood chemistry[[id number]] Glucose [Mass/volume] in Serum or Plasma [2345-7] 06/29/2025 04:13 PM 305 mg/dL N Blood chemistry[[id number]] Glucose [Mass/volume] in Serum or Plasma [2345-7] 06/29/2025 04:08 PM 187 mg/dL N Blood chemistry[[id number]] Glucose [Mass/volume] in Serum or Plasma [2345-7] 06/29/2025 12:52 PM 122 mg/dL N Blood chemistry[[id number]] Glucose [Mass/volume] in Serum or Plasma [2345-7] 06/29/2025 10:11 AM 215 mg/dL N Blood chemistry[[id number]] Glucose [Mass/volume] in Serum or Plasma [2345-7] 06/28/2025 04:14 PM 240 mg/dL N Blood chemistry[[id number]] Glucose [Mass/volume] in Serum or Plasma [2345-7] 06/28/2025 12:18 PM 171 mg/dL N Blood chemistry[[id number]] Glucose [Mass/volume] in Serum or Plasma [2345-7] 06/28/2025 11:50 AM 215 mg/dL N Blood chemistry[[id number]] Glucose [Mass/volume] in Serum or Plasma [2345-7] 06/28/2025 08:54 AM 192 mg/dL N Blood chemistry[[id number]] Glucose [Mass/volume] in Serum or Plasma [2345-7] 06/27/2025 04:59 PM 195 mg/dL N Blood chemistry[[id number]] Glucose [Mass/volume] in Serum or Plasma [2345-7] 06/27/2025 02:19 PM 151 mg/dL N Blood chemistry[] Glucose [Mass/volume] in Serum or Plasma [2345-7] 06/27/2025 12:50 PM 253 mg/dL N Blood chemistry[] Glucose [Mass/volume] in Serum or Plasma [2345-7] 06/27/2025 09:21 AM 251 mg/dL N Blood chemistry[] Glucose [Mass/volume] in Serum or Plasma [2345-7] 06/26/2025 04:19 PM 220 mg/dL N Blood chemistry[] Glucose [Mass/volume] in Serum or Plasma [2345-7] 06/26/2025 12:56 PM 151 mg/dL N Blood chemistry[] Glucose [Mass/volume] in Serum or Plasma [2345-7] 06/26/2025 12:14 PM 216 mg/dL N Blood chemistry[] Glucose [Mass/volume] in Serum or Plasma [2345-7] 06/26/2025 09:13 AM 300 mg/dL N Glucose [Mass/volume] in Serum or Plasma [2345-7] 06/26/2025 09:13 AM 300 mg/dL N Blood chemistry[] Glucose [Mass/volume] in Serum or Plasma [2345-7] 06/25/2025 04:40 PM 152 mg/dL N Blood chemistry[] Glucose [Mass/volume] in Serum or Plasma [2345-7] 06/25/2025 01:42 PM 151 mg/dL N Blood chemistry[[id number]] Glucose [Mass/volume] in Serum or Plasma [2345-7] 06/25/2025 01:31 PM 138 mg/dL N Blood chemistry[[id number]] Glucose [Mass/volume] in Serum or Plasma [2345-7] 06/25/2025 09:04 AM 184 mg/dL N Blood chemistry[] Glucose [Mass/volume] in Serum or Plasma [2345-7] 06/24/2025 04:18 PM 179 mg/dL N Blood chemistry[[id number]] Glucose [Mass/volume] in Serum or Plasma [2345-7] 06/24/2025 02:36 PM 210 mg/dL N Blood chemistry[[id number]] Glucose [Mass/volume] in Serum or Plasma [2345-7] 06/24/2025 11:56 AM 134 mg/dL N Blood chemistry[[id number]] Glucose [Mass/volume] in Serum or Plasma [2345-7] 06/24/2025 09:21 AM 316 mg/dL N Blood chemistry[[id number]] Glucose [Mass/volume] in Serum or Plasma [2345-7] 06/24/2025 07:07 AM 187 mg/dL N Blood chemistry[[id number]] Glucose [Mass/volume] in Serum or Plasma [2345-7] 06/23/2025 04:20 PM 235 mg/dL N Blood chemistry[[id number]] Glucose [Mass/volume] in Serum or Plasma [2345-7] 06/23/2025 12:11 PM 108 mg/dL N Blood chemistry[[id number]] Glucose [Mass/volume] in Serum or Plasma [2345-7] 06/23/2025 08:55 AM 181 mg/dL N Blood chemistry[[id number]] Glucose [Mass/volume] in Serum or Plasma [2345-7] 06/22/2025 04:22 PM 190 mg/dL N Blood chemistry[[id number]] Glucose [Mass/volume] in Serum or Plasma [2345-7] 06/22/2025 12:47 PM 231 mg/dL N Blood chemistry[[id number]] Glucose [Mass/volume] in Serum or Plasma [2345-7] 06/22/2025 12:27 PM 142 mg/dL N Blood chemistry[[id number]] Glucose [Mass/volume] in Serum or Plasma [2345-7] 06/22/2025 09:43 AM 213 mg/dL N Blood chemistry[[id number]] Glucose [Mass/volume] in Serum or Plasma [2345-7] 06/21/2025 04:06 PM 85 mg/dL N Blood chemistry[[id number]] Glucose [Mass/volume] in Serum or Plasma [2345-7] 06/21/2025 12:20 PM 346 mg/dL N Blood chemistry[[id number]] Glucose [Mass/volume] in Serum or Plasma [2345-7] 06/21/2025 12:09 PM 170 mg/dL N Blood chemistry[[id number]] Glucose [Mass/volume] in Serum or Plasma [2345-7] 06/21/2025 08:36 AM 284 mg/dL N Blood chemistry[[id number]] Glucose [Mass/volume] in Serum or Plasma [2345-7] 06/20/2025 04:10 PM 180 mg/dL N Blood chemistry[[id number]] Glucose [Mass/volume] in Serum or Plasma [2345-7] 06/20/2025 12:18 PM 104 mg/dL N Blood chemistry[[id number]] Glucose [Mass/volume] in Serum or Plasma [2345-7] 06/20/2025 12:07 PM 207 mg/dL N Blood chemistry[[id number]] Glucose [Mass/volume] in Serum or Plasma [2345-7] 06/19/2025 04:14 PM 156 mg/dL N Blood chemistry[[id number]] Glucose [Mass/volume] in Serum or Plasma [2345-7] 06/19/2025 12:26 PM 123 mg/dL N Blood chemistry[[id number]] Glucose [Mass/volume] in Serum or Plasma [2345-7] 06/19/2025 12:10 PM 80 mg/dL N Blood chemistry[[id number]] Glucose [Mass/volume] in Serum or Plasma [2345-7] 06/19/2025 10:13 AM 122 mg/dL N Blood chemistry[[id number]] Glucose [Mass/volume] in Serum or Plasma [2345-7] 06/18/2025 04:24 PM 281 mg/dL N Blood chemistry[[id number]] Glucose [Mass/volume] in Serum or Plasma [2345-7] 06/18/2025 02:22 PM 150 mg/dL N Blood chemistry[[id number]] Glucose [Mass/volume] in Serum or Plasma [2345-7] 06/18/2025 12:10 PM 184 mg/dL N Blood chemistry[[id number]] Glucose [Mass/volume] in Serum or Plasma [2345-7] 06/18/2025 08:57 AM 146 mg/dL N Blood chemistry[[id number]] Glucose [Mass/volume] in Serum or Plasma [2345-7] 06/17/2025 04:53 PM 210 mg/dL N Blood chemistry[[id number]] Glucose [Mass/volume] in Serum or Plasma [2345-7] 06/17/2025 04:38 PM 92 mg/dL N Blood chemistry[[id number]] Glucose [Mass/volume] in Serum or Plasma [2345-7] 06/17/2025 12:05 PM 100 mg/dL N Blood chemistry[[id number]] Glucose [Mass/volume] in Serum or Plasma [2345-7] 06/17/2025 09:38 AM 258 mg/dL N Glucose [Mass/volume] in Serum or Plasma [2345-7] 06/17/2025 09:38 AM 258 mg/dL N Blood chemistry[[id number]] Glucose [Mass/volume] in Serum or Plasma [2345-7] 06/16/2025 04:30 PM 168 mg/dL N Blood chemistry[[id number]] Glucose [Mass/volume] in Serum or Plasma [2345-7] 06/16/2025 04:04 PM 129 mg/dL N Blood chemistry[[id number]] Glucose [Mass/volume] in Serum or Plasma [2345-7] 06/16/2025 01:14 PM 106 mg/dL N Blood chemistry[[id number]] Glucose [Mass/volume] in Serum or Plasma [2345-7] 06/16/2025 12:07 PM 106 mg/dL N Blood chemistry[[id number]] Glucose [Mass/volume] in Serum or Plasma [2345-7] 06/16/2025 08:51 AM 158 mg/dL N Blood chemistry[[id number]] Glucose [Mass/volume] in Serum or Plasma [2345-7] 06/15/2025 03:52 PM 184 mg/dL N Blood chemistry[[id number]] Glucose [Mass/volume] in Serum or Plasma [2345-7] 06/15/2025 03:45 PM 118 mg/dL N Blood chemistry[[id number]] Glucose [Mass/volume] in Serum or Plasma [2345-7] 06/15/2025 12:04 PM 115 mg/dL N Blood chemistry[[id number]] Glucose [Mass/volume] in Serum or Plasma [2345-7] 06/15/2025 08:45 AM 174 mg/dL N Blood chemistry[[id number]] Glucose [Mass/volume] in Serum or Plasma [2345-7] 06/15/2025 07:50 AM 115 mg/dL N Blood chemistry[[id number]] Glucose [Mass/volume] in Serum or Plasma [2345-7] 06/14/2025 04:41 PM 153 mg/dL N Blood chemistry[[id number]] Glucose [Mass/volume] in Serum or Plasma [2345-7] 06/14/2025 12:02 PM 204 mg/dL N Blood chemistry[[id number]] Glucose [Mass/volume] in Serum or Plasma [2345-7] 06/14/2025 11:30 AM 93 mg/dL N Blood chemistry[[id number]] Glucose [Mass/volume] in Serum or Plasma [2345-7] 06/14/2025 09:06 AM 279 mg/dL N Blood chemistry[[id number]] Glucose [Mass/volume] in Serum or Plasma [2345-7] 06/13/2025 05:02 PM 174 mg/dL N Blood chemistry[[id number]] Glucose [Mass/volume] in Serum or Plasma [2345-7] 06/13/2025 02:58 PM 104 mg/dL N Blood chemistry[[id number]] Glucose [Mass/volume] in Serum or Plasma [2345-7] 06/13/2025 12:59 PM 127 mg/dL N Blood chemistry[[id number]] Glucose [Mass/volume] in Serum or Plasma [2345-7] 06/13/2025 09:49 AM 168 mg/dL N Blood chemistry[[id number]] Glucose [Mass/volume] in Serum or Plasma [2345-7] 06/13/2025 06:07 AM 150 mg/dL N Blood chemistry[[id number]] Glucose [Mass/volume] in Serum or Plasma [2345-7] 06/12/2025 05:10 PM 164 mg/dL N Blood chemistry[[id number]] Glucose [Mass/volume] in Serum or Plasma [2345-7] 06/12/2025 12:41 PM 213 mg/dL N Glucose [Mass/volume] in Serum or Plasma [2345-7] 06/12/2025 12:41 PM 213 mg/dL N Blood chemistry[[id number]] Glucose [Mass/volume] in Serum or Plasma [2345-7] 06/12/2025 12:18 PM 137 mg/dL N Blood chemistry[[id number]] Glucose [Mass/volume] in Serum or Plasma [2345-7] 06/12/2025 06:03 AM 164 mg/dL N Blood chemistry[[id number]] Glucose [Mass/volume] in Serum or Plasma [2345-7] 06/11/2025 04:08 PM 161 mg/dL N Blood chemistry[[id number]] Glucose [Mass/volume] in Serum or Plasma [2345-7] 06/11/2025 01:24 PM 116 mg/dL N Blood chemistry[[id number]] Glucose [Mass/volume] in Serum or Plasma [2345-7] 06/11/2025 11:58 AM 117 mg/dL N Blood chemistry[[id number]] Glucose [Mass/volume] in Serum or Plasma [2345-7] 06/11/2025 09:12 AM 208 mg/dL N Blood chemistry[[id number]] Glucose [Mass/volume] in Serum or Plasma [2345-7] 06/10/2025 04:20 PM 212 mg/dL N Blood chemistry[[id number]] Glucose [Mass/volume] in Serum or Plasma [2345-7] 06/10/2025 03:49 PM 134 mg/dL N Blood chemistry[[id number]] Glucose [Mass/volume] in Serum or Plasma [2345-7] 06/10/2025 12:21 PM 108 mg/dL N Blood chemistry[[id number]] Glucose [Mass/volume] in Serum or Plasma [2345-7] 06/10/2025 08:49 AM 234 mg/dL N Blood chemistry[[id number]] Glucose [Mass/volume] in Serum or Plasma [2345-7] 06/09/2025 04:33 PM 156 mg/dL N Blood chemistry[[id number]] Glucose [Mass/volume] in Serum or Plasma [2345-7] 06/09/2025 03:39 PM 141 mg/dL N Blood chemistry[[id number]] Glucose [Mass/volume] in Serum or Plasma [2345-7] 06/09/2025 01:07 PM 88 mg/dL N Blood chemistry[[id number]] Glucose [Mass/volume] in Serum or Plasma [2345-7] 06/09/2025 10:42 AM 201 mg/dL N Blood chemistry[[id number]] Glucose [Mass/volume] in Serum or Plasma [2345-7] 06/08/2025 05:02 PM 172 mg/dL N Blood chemistry[[id number]] Glucose [Mass/volume] in Serum or Plasma [2345-7] 06/08/2025 12:31 PM 100 mg/dL N Blood chemistry[[id number]] Glucose [Mass/volume] in Serum or Plasma [2345-7] 06/08/2025 11:52 AM 143 mg/dL N Blood chemistry[[id number]] Glucose [Mass/volume] in Serum or Plasma [2345-7] 06/08/2025 09:57 AM 188 mg/dL N Blood chemistry[[id number]] Glucose [Mass/volume] in Serum or Plasma [2345-7] 06/07/2025 04:33 PM 260 mg/dL N Blood chemistry[[id number]] Glucose [Mass/volume] in Serum or Plasma [2345-7] 06/07/2025 12:20 PM 108 mg/dL N Blood chemistry[[id number]] Glucose [Mass/volume] in Serum or Plasma [2345-7] 06/07/2025 12:06 PM 186 mg/dL N Blood chemistry[[id number]] Glucose [Mass/volume] in Serum or Plasma [2345-7] 06/07/2025 09:17 AM 253 mg/dL N Blood chemistry[[id number]] Glucose [Mass/volume] in Serum or Plasma [2345-7] 06/06/2025 04:18 PM 227 mg/dL N Blood chemistry[[id number]] Glucose [Mass/volume] in Serum or Plasma [2345-7] 06/06/2025 04:17 PM 227 mg/dL N Blood chemistry[[id number]] Glucose [Mass/volume] in Serum or Plasma [2345-7] 06/06/2025 12:46 PM 106 mg/dL N Blood chemistry[[id number]] Glucose [Mass/volume] in Serum or Plasma [2345-7] 06/06/2025 12:45 PM 106 mg/dL N Blood chemistry[[id number]] Glucose [Mass/volume] in Serum or Plasma [2345-7] 06/06/2025 11:46 AM 150 mg/dL N Blood chemistry[[id number]] Glucose [Mass/volume] in Serum or Plasma [2345-7] 06/06/2025 09:44 AM 142 mg/dL N Glucose [Mass/volume] in Serum or Plasma [2345-7] 06/06/2025 09:44 AM 142 mg/dL N Blood chemistry[[id number]] Glucose [Mass/volume] in Serum or Plasma [2345-7] 06/05/2025 05:37 PM 226 mg/dL N Blood chemistry[[id number]] Glucose [Mass/volume] in Serum or Plasma [2345-7] 06/05/2025 04:16 PM 160 mg/dL N Blood chemistry[[id number]] Glucose [Mass/volume] in Serum or Plasma [2345-7] 06/05/2025 12:07 PM 147 mg/dL N Blood chemistry[[id number]] Glucose [Mass/volume] in Serum or Plasma [2345-7] 06/05/2025 12:00 PM 260 mg/dL N Blood chemistry[[id number]] Glucose [Mass/volume] in Serum or Plasma [2345-7] 06/05/2025 09:03 AM 269 mg/dL N Blood chemistry[[id number]] Glucose [Mass/volume] in Serum or Plasma [2345-7] 06/04/2025 05:04 PM 178 mg/dL N Blood chemistry[[id number]] Glucose [Mass/volume] in Serum or Plasma [2345-7] 06/04/2025 01:09 PM 113 mg/dL N Blood chemistry[[id number]] Glucose [Mass/volume] in Serum or Plasma [2345-7] 06/04/2025 09:11 AM 353 mg/dL N Blood chemistry[[id number]] Glucose [Mass/volume] in Serum or Plasma [2345-7] 06/03/2025 04:12 PM 163 mg/dL N Blood chemistry[[id number]] Glucose [Mass/volume] in Serum or Plasma [2345-7] 06/03/2025 03:53 PM 119 mg/dL N Blood chemistry[[id number]] Glucose [Mass/volume] in Serum or Plasma [2345-7] 06/03/2025 12:29 PM 138 mg/dL N Blood chemistry[[id number]] Glucose [Mass/volume] in Serum or Plasma [2345-7] 06/03/2025 09:14 AM 102 mg/dL N Blood chemistry[[id number]] Glucose [Mass/volume] in Serum or Plasma [2345-7] 06/03/2025 06:42 AM 156 mg/dL N Blood chemistry[[id number]] Glucose [Mass/volume] in Serum or Plasma [2345-7] 06/02/2025 04:34 PM 234 mg/dL N Blood chemistry[[id number]] Glucose [Mass/volume] in Serum or Plasma [2345-7] 06/02/2025 12:04 PM 142 mg/dL N Blood chemistry[[id number]] Glucose [Mass/volume] in Serum or Plasma [2345-7] 06/02/2025 08:52 AM 253 mg/dL N Blood chemistry[[id number]] Glucose [Mass/volume] in Serum or Plasma [2345-7] 06/01/2025 05:18 PM 357 mg/dL N Blood chemistry[[id number]] Glucose [Mass/volume] in Serum or Plasma [2345-7] 06/01/2025 03:53 PM 336 mg/dL N Blood chemistry[[id number]] Glucose [Mass/volume] in Serum or Plasma [2345-7] 06/01/2025 03:52 PM 336 mg/dL N Blood chemistry[[id number]] Glucose [Mass/volume] in Serum or Plasma [2345-7] 06/01/2025 02:54 PM 231 mg/dL N Blood chemistry[[id number]] Glucose [Mass/volume] in Serum or Plasma [2345-7] 06/01/2025 12:42 PM 145 mg/dL N Blood chemistry[[id number]] Glucose [Mass/volume] in Serum or Plasma [2345-7] 06/01/2025 12:40 PM 145 mg/dL N Blood chemistry[[id number]] Glucose [Mass/volume] in Serum or Plasma [2345-7] 05/31/2025 04:41 PM 432 mg/dL N Blood chemistry[[id number]] Glucose [Mass/volume] in Serum or Plasma [2345-7] 05/31/2025 12:58 PM 169 mg/dL N Blood chemistry[[id number]] Glucose [Mass/volume] in Serum or Plasma [2345-7] 05/31/2025 12:19 PM 292 mg/dL N Blood chemistry[[id number]] Glucose [Mass/volume] in Serum or Plasma [2345-7] 05/31/2025 10:37 AM 420 mg/dL N Blood chemistry[[id number]] Glucose [Mass/volume] in Serum or Plasma [2345-7] 05/30/2025 04:07 PM 264 mg/dL N Blood chemistry[[id number]] Glucose [Mass/volume] in Serum or Plasma [2345-7] 05/30/2025 02:38 PM 347 mg/dL N Blood chemistry[[id number]] Glucose [Mass/volume] in Serum or Plasma [2345-7] 05/30/2025 01:43 PM 184 mg/dL N Blood chemistry[[id number]] Glucose [Mass/volume] in Serum or Plasma [2345-7] 05/30/2025 09:13 AM 340 mg/dL N Blood chemistry[[id number]] Glucose [Mass/volume] in Serum or Plasma [2345-7] 05/29/2025 01:33 PM 195 mg/dL N Blood chemistry[[id number]] Glucose [Mass/volume] in Serum or Plasma [2345-7] 05/29/2025 01:05 PM 284 mg/dL N Blood chemistry[[id number]] Glucose [Mass/volume] in Serum or Plasma [2345-7] 05/29/2025 11:48 AM 240 mg/dL N Blood chemistry[[id number]] Glucose [Mass/volume] in Serum or Plasma [2345-7] 05/29/2025 06:10 AM 334 mg/dL N Blood chemistry[[id number]] Glucose [Mass/volume] in Serum or Plasma [2345-7] 05/28/2025 05:04 PM 176 mg/dL N Blood chemistry[[id number]] Glucose [Mass/volume] in Serum or Plasma [2345-7] 05/28/2025 04:31 PM 157 mg/dL N Blood chemistry[[id number]] Glucose [Mass/volume] in Serum or Plasma [2345-7] 05/28/2025 04:13 PM 274 mg/dL N Blood chemistry[[id number]] Glucose [Mass/volume] in Serum or Plasma [2345-7] 05/28/2025 12:57 PM 204 mg/dL N Blood chemistry[[id number]] Glucose [Mass/volume] in Serum or Plasma [2345-7] 05/28/2025 09:15 AM 301 mg/dL N Blood chemistry[[id number]] Glucose [Mass/volume] in Serum or Plasma [2345-7] 05/27/2025 04:02 PM 194 mg/dL N Blood chemistry[[id number]] Glucose [Mass/volume] in Serum or Plasma [2345-7] 05/27/2025 01:13 PM 132 mg/dL N Blood chemistry[[id number]] Glucose [Mass/volume] in Serum or Plasma [2345-7] 05/27/2025 09:40 AM 384 mg/dL N Blood chemistry[[id number]] Glucose [Mass/volume] in Serum or Plasma [2345-7] 05/26/2025 03:40 PM 317 mg/dL N Blood chemistry[[id number]] Glucose [Mass/volume] in Serum or Plasma [2345-7] 05/26/2025 02:47 PM 171 mg/dL N Blood chemistry[[id number]] Glucose [Mass/volume] in Serum or Plasma [2345-7] 05/26/2025 11:07 AM 145 mg/dL N Blood chemistry[[id number]] Glucose [Mass/volume] in Serum or Plasma [2345-7] 05/26/2025 08:55 AM 400 mg/dL N Blood chemistry[[id number]] Glucose [Mass/volume] in Serum or Plasma [2345-7] 05/26/2025 08:53 AM 411 mg/dL N Blood chemistry[[id number]] Glucose [Mass/volume] in Serum or Plasma [2345-7] 05/25/2025 02:30 PM 101 mg/dL N Blood chemistry[[id number]] Glucose [Mass/volume] in Serum or Plasma [2345-7] 05/25/2025 12:55 PM 309 mg/dL N Blood chemistry[[id number]] Glucose [Mass/volume] in Serum or Plasma [2345-7] 05/25/2025 10:33 AM 166 mg/dL N Blood chemistry[[id number]] Glucose [Mass/volume] in Serum or Plasma [2345-7] 05/25/2025 06:42 AM 178 mg/dL N Blood chemistry[[id number]] Glucose [Mass/volume] in Serum or Plasma [2345-7] 05/24/2025 05:06 PM 299 mg/dL N Blood chemistry[[id number]] Glucose [Mass/volume] in Serum or Plasma [2345-7] 05/24/2025 01:14 PM 209 mg/dL N Blood chemistry[[id number]] Glucose [Mass/volume] in Serum or Plasma [2345-7] 05/24/2025 12:13 PM 169 mg/dL N Blood chemistry[[id number]] Glucose [Mass/volume] in Serum or Plasma [2345-7] 05/24/2025 09:27 AM 244 mg/dL N Blood chemistry[[id number]] Glucose [Mass/volume] in Serum or Plasma [2345-7] 05/23/2025 04:12 PM 291 mg/dL N Blood chemistry[[id number]] Glucose [Mass/volume] in Serum or Plasma [2345-7] 05/23/2025 01:35 PM 118 mg/dL N Blood chemistry[[id number]] Glucose [Mass/volume] in Serum or Plasma [2345-7] 05/23/2025 11:44 AM 299 mg/dL N Blood chemistry[[id number]] Glucose [Mass/volume] in Serum or Plasma [2345-7] 05/23/2025 10:14 AM 237 mg/dL N Blood chemistry[[id number]] Glucose [Mass/volume] in Serum or Plasma [2345-7] 05/22/2025 04:13 PM 220 mg/dL N Blood chemistry[[id number]] Glucose [Mass/volume] in Serum or Plasma [2345-7] 05/22/2025 01:00 PM 509 mg/dL N Blood chemistry[[id number]] Glucose [Mass/volume] in Serum or Plasma [2345-7] 05/22/2025 12:56 PM 179 mg/dL N Blood chemistry[[id number]] Glucose [Mass/volume] in Serum or Plasma [2345-7] 05/22/2025 11:43 AM 179 mg/dL N Blood chemistry[[id number]] Glucose [Mass/volume] in Serum or Plasma [2345-7] 05/22/2025 09:36 AM 255 mg/dL N Blood chemistry[[id number]] Glucose [Mass/volume] in Serum or Plasma [2345-7] 05/21/2025 04:13 PM 370 mg/dL N Blood chemistry[[id number]] Glucose [Mass/volume] in Serum or Plasma [2345-7] 05/21/2025 01:21 PM 170 mg/dL N Blood chemistry[[id number]] Glucose [Mass/volume] in Serum or Plasma [2345-7] 05/21/2025 01:06 PM 263 mg/dL N Blood chemistry[[id number]] Glucose [Mass/volume] in Serum or Plasma [2345-7] 05/21/2025 09:21 AM 288 mg/dL N Blood chemistry[[id number]] Glucose [Mass/volume] in Serum or Plasma [2345-7] 05/20/2025 05:29 PM 205 mg/dL N Blood chemistry[[id number]] Glucose [Mass/volume] in Serum or Plasma [2345-7] 05/20/2025 02:38 PM 223 mg/dL N Blood chemistry[[id number]] Glucose [Mass/volume] in Serum or Plasma [2345-7] 05/20/2025 12:25 PM 218 mg/dL N Blood chemistry[[id number]] Glucose [Mass/volume] in Serum or Plasma [2345-7] 05/20/2025 10:29 AM 367 mg/dL N Blood chemistry[[id number]] Glucose [Mass/volume] in Serum or Plasma [2345-7] 05/19/2025 03:46 PM 174 mg/dL N Blood chemistry[[id number]] Glucose [Mass/volume] in Serum or Plasma [2345-7] 05/19/2025 02:00 PM 260 mg/dL N Blood chemistry[[id number]] Glucose [Mass/volume] in Serum or Plasma [2345-7] 05/19/2025 12:49 PM 314 mg/dL N Blood chemistry[[id number]] Glucose [Mass/volume] in Serum or Plasma [2345-7] 05/19/2025 09:02 AM 249 mg/dL N Blood chemistry[[id number]] Glucose [Mass/volume] in Serum or Plasma [2345-7] 05/18/2025 03:35 PM 243 mg/dL N Blood chemistry[[id number]] Glucose [Mass/volume] in Serum or Plasma [2345-7] 05/18/2025 03:17 PM 193 mg/dL N Blood chemistry[[id number]] Glucose [Mass/volume] in Serum or Plasma [2345-7] 05/18/2025 12:57 PM 132 mg/dL N Blood chemistry[[id number]] Glucose [Mass/volume] in Serum or Plasma [2345-7] 05/18/2025 09:12 AM 243 mg/dL N Blood chemistry[[id number]] Glucose [Mass/volume] in Serum or Plasma [2345-7] 05/17/2025 04:11 PM 142 mg/dL N Blood chemistry[[id number]] Glucose [Mass/volume] in Serum or Plasma [2345-7] 05/17/2025 02:16 PM 124 mg/dL N Blood chemistry[[id number]] Glucose [Mass/volume] in Serum or Plasma [2345-7] 05/17/2025 11:40 AM 265 mg/dL N Blood chemistry[[id number]] Glucose [Mass/volume] in Serum or Plasma [2345-7] 05/17/2025 11:14 AM 124 mg/dL N Blood chemistry[[id number]] Glucose [Mass/volume] in Serum or Plasma [2345-7] 05/17/2025 09:35 AM 281 mg/dL N Blood chemistry[[id number]] Glucose [Mass/volume] in Serum or Plasma [2345-7] 05/17/2025 09:10 AM 281 mg/dL N Blood chemistry[[id number]] Glucose [Mass/volume] in Serum or Plasma [2345-7] 05/16/2025 05:12 PM 257 mg/dL N Blood chemistry[[id number]] Glucose [Mass/volume] in Serum or Plasma [2345-7] 05/16/2025 02:00 PM 88 mg/dL N Blood chemistry[[id number]] Glucose [Mass/volume] in Serum or Plasma [2345-7] 05/16/2025 01:58 PM 175 mg/dL N Blood chemistry[[id number]] Glucose [Mass/volume] in Serum or Plasma [2345-7] 05/16/2025 09:52 AM 115 mg/dL N Blood chemistry[[id number]] Glucose [Mass/volume] in Serum or Plasma [2345-7] 05/15/2025 05:38 PM 216 mg/dL N Blood chemistry[[id number]] Glucose [Mass/volume] in Serum or Plasma [2345-7] 05/15/2025 01:47 PM 148 mg/dL N Blood chemistry[[id number]] Glucose [Mass/volume] in Serum or Plasma [2345-7] 05/15/2025 01:27 PM 85 mg/dL N Blood chemistry[[id number]] Glucose [Mass/volume] in Serum or Plasma [2345-7] 05/15/2025 09:12 AM 176 mg/dL N Blood chemistry[[id number]] Glucose [Mass/volume] in Serum or Plasma [2345-7] 05/14/2025 04:55 PM 224 mg/dL N Blood chemistry[[id number]] Glucose [Mass/volume] in Serum or Plasma [2345-7] 05/14/2025 04:35 PM 138 mg/dL N Blood chemistry[[id number]] Glucose [Mass/volume] in Serum or Plasma [2345-7] 05/14/2025 02:38 PM 158 mg/dL N Blood chemistry[[id number]] Glucose [Mass/volume] in Serum or Plasma [2345-7] 05/14/2025 10:00 AM 125 mg/dL N Blood chemistry[[id number]] Glucose [Mass/volume] in Serum or Plasma [2345-7] 05/13/2025 04:30 PM 147 mg/dL N Blood chemistry[[id number]] Glucose [Mass/volume] in Serum or Plasma [2345-7] 05/13/2025 12:49 PM 259 mg/dL N Blood chemistry[[id number]] Glucose [Mass/volume] in Serum or Plasma [2345-7] 05/13/2025 12:37 PM 157 mg/dL N Blood chemistry[[id number]] Glucose [Mass/volume] in Serum or Plasma [2345-7] 05/13/2025 09:30 AM 280 mg/dL N Blood chemistry[[id number]] Glucose [Mass/volume] in Serum or Plasma [2345-7] 05/12/2025 04:08 PM 206 mg/dL N Blood chemistry[[id number]] Glucose [Mass/volume] in Serum or Plasma [2345-7] 05/12/2025 02:17 PM 151 mg/dL N Blood chemistry[[id number]] Glucose [Mass/volume] in Serum or Plasma [2345-7] 05/12/2025 12:43 PM 107 mg/dL N Blood chemistry[[id number]] Glucose [Mass/volume] in Serum or Plasma [2345-7] 05/12/2025 11:38 AM 107 mg/dL N Blood chemistry[[id number]] Glucose [Mass/volume] in Serum or Plasma [2345-7] 05/12/2025 08:50 AM 279 mg/dL N Blood chemistry[[id number]] Glucose [Mass/volume] in Serum or Plasma [2345-7] 05/11/2025 04:32 PM 202 mg/dL N Blood chemistry[[id number]] Glucose [Mass/volume] in Serum or Plasma [2345-7] 05/11/2025 12:54 PM 142 mg/dL N Blood chemistry[[id number]] Glucose [Mass/volume] in Serum or Plasma [2345-7] 05/11/2025 12:45 PM 165 mg/dL N Blood chemistry[[id number]] Glucose [Mass/volume] in Serum or Plasma [2345-7] 05/11/2025 09:14 AM 173 mg/dL N Blood chemistry[[id number]] Glucose [Mass/volume] in Serum or Plasma [2345-7] 05/10/2025 04:56 PM 227 mg/dL N Blood chemistry[[id number]] Glucose [Mass/volume] in Serum or Plasma [2345-7] 05/10/2025 12:39 PM 163 mg/dL N Blood chemistry[[id number]] Glucose [Mass/volume] in Serum or Plasma [2345-7] 05/10/2025 11:47 AM 165 mg/dL N Blood chemistry[[id number]] Glucose [Mass/volume] in Serum or Plasma [2345-7] 05/10/2025 10:00 AM 253 mg/dL N Blood chemistry[[id number]] Glucose [Mass/volume] in Serum or Plasma [2345-7] 05/09/2025 04:58 PM 209 mg/dL N Blood chemistry[[id number]] Glucose [Mass/volume] in Serum or Plasma [2345-7] 05/09/2025 04:56 PM 209 mg/dL N Blood chemistry[[id number]] Glucose [Mass/volume] in Serum or Plasma [2345-7] 05/09/2025 12:07 PM 183 mg/dL N Blood chemistry[[id number]] Glucose [Mass/volume] in Serum or Plasma [2345-7] 05/09/2025 11:28 AM 168 mg/dL N Blood chemistry[[id number]] Glucose [Mass/volume] in Serum or Plasma [2345-7] 05/09/2025 09:58 AM 178 mg/dL N Blood chemistry[[id number]] Glucose [Mass/volume] in Serum or Plasma [2345-7] 05/08/2025 03:53 PM 265 mg/dL N Blood chemistry[[id number]] Glucose [Mass/volume] in Serum or Plasma [2345-7] 05/08/2025 12:51 PM 281 mg/dL N Blood chemistry[[id number]] Glucose [Mass/volume] in Serum or Plasma [2345-7] 05/08/2025 11:52 AM 195 mg/dL N Blood chemistry[[id number]] Glucose [Mass/volume] in Serum or Plasma [2345-7] 05/08/2025 09:11 AM 378 mg/dL N Blood chemistry[[id number]] Glucose [Mass/volume] in Serum or Plasma [2345-7] 05/07/2025 05:18 PM 298 mg/dL N Blood chemistry[[id number]] Glucose [Mass/volume] in Serum or Plasma [2345-7] 05/07/2025 04:15 PM 282 mg/dL N Blood chemistry[[id number]] Glucose [Mass/volume] in Serum or Plasma [2345-7] 05/07/2025 12:54 PM 168 mg/dL N Blood chemistry[[id number]] Glucose [Mass/volume] in Serum or Plasma [2345-7] 05/07/2025 09:52 AM 157 mg/dL N Blood chemistry[[id number]] Glucose [Mass/volume] in Serum or Plasma [2345-7] 05/06/2025 05:40 PM 283 mg/dL N Blood chemistry[[id number]] Glucose [Mass/volume] in Serum or Plasma [2345-7] 05/06/2025 04:15 PM 208 mg/dL N Blood chemistry[[id number]] Glucose [Mass/volume] in Serum or Plasma [2345-7] 05/06/2025 04:00 PM 177 mg/dL N Blood chemistry[[id number]] Glucose [Mass/volume] in Serum or Plasma [2345-7] 05/06/2025 01:08 PM 142 mg/dL N Blood chemistry[[id number]] Glucose [Mass/volume] in Serum or Plasma [2345-7] 05/06/2025 09:31 AM 389 mg/dL N Blood chemistry[[id number]] Glucose [Mass/volume] in Serum or Plasma [2345-7] 05/05/2025 04:32 PM 212 mg/dL N Blood chemistry[[id number]] Glucose [Mass/volume] in Serum or Plasma [2345-7] 05/05/2025 03:32 PM 241 mg/dL N Blood chemistry[[id number]] Glucose [Mass/volume] in Serum or Plasma [2345-7] 05/05/2025 12:32 PM 142 mg/dL N Blood chemistry[[id number]] Glucose [Mass/volume] in Serum or Plasma [2345-7] 05/05/2025 08:34 AM 127 mg/dL N Blood chemistry[[id number]] Glucose [Mass/volume] in Serum or Plasma [2345-7] 05/04/2025 03:33 PM 328 mg/dL N Blood chemistry[[id number]] Glucose [Mass/volume] in Serum or Plasma [2345-7] 05/04/2025 02:18 PM 214 mg/dL N Blood chemistry[[id number]] Glucose [Mass/volume] in Serum or Plasma [2345-7] 05/04/2025 12:37 PM 247 mg/dL N Blood chemistry[[id number]] Glucose [Mass/volume] in Serum or Plasma [2345-7] 05/04/2025 08:54 AM 318 mg/dL N Blood chemistry[[id number]] Glucose [Mass/volume] in Serum or Plasma [2345-7] 05/03/2025 04:20 PM 213 mg/dL N Blood chemistry[[id number]] Glucose [Mass/volume] in Serum or Plasma [2345-7] 05/03/2025 12:59 PM 382 mg/dL N Blood chemistry[[id number]] Glucose [Mass/volume] in Serum or Plasma [2345-7] 05/03/2025 12:03 PM 104 mg/dL N Blood chemistry[[id number]] Glucose [Mass/volume] in Serum or Plasma [5-7] 05/03/2025 11:38 AM 104 mg/dL N Blood chemistry[[id number]] Glucose [Mass/volume] in Serum or Plasma [2345-7] 05/03/2025 09:24 AM 363 mg/dL N Blood chemistry[[id number]] Glucose [Mass/volume] in Serum or Plasma [2345-7] 05/02/2025 04:11 PM 287 mg/dL N Blood chemistry[[id number]] Glucose [Mass/volume] in Serum or Plasma [2345-7] 05/02/2025 12:57 PM 182 mg/dL N Blood chemistry[[id number]] Glucose [Mass/volume] in Serum or Plasma [2345-7] 05/02/2025 11:50 AM 171 mg/dL N Blood chemistry[[id number]] Glucose [Mass/volume] in Serum or Plasma [2345-7] 05/02/2025 09:21 AM 280 mg/dL N Blood chemistry[[id number]] Glucose [Mass/volume] in Serum or Plasma [2345-7] 05/02/2025 09:20 AM 280 mg/dL N Blood chemistry[[id number]] Glucose [Mass/volume] in Serum or Plasma [2345-7] 05/01/2025 05:03 PM 337 mg/dL N Blood chemistry[[id number]] Glucose [Mass/volume] in Serum or Plasma [2345-7] 05/01/2025 04:04 PM 226 mg/dL N Blood chemistry[[id number]] Glucose [Mass/volume] in Serum or Plasma [2345-7] 05/01/2025 01:34 PM 226 mg/dL N Blood chemistry[[id number]] Glucose [Mass/volume] in Serum or Plasma [2345-7] 05/01/2025 12:03 PM 199 mg/dL N Blood chemistry[[id number]] Glucose [Mass/volume] in Serum or Plasma [2345-7] 05/01/2025 10:04 AM 246 mg/dL N Blood chemistry[[id number]] Glucose [Mass/volume] in Serum or Plasma [2345-7] 04/30/2025 04:42 PM 267 mg/dL N Blood chemistry[[id number]] Glucose [Mass/volume] in Serum or Plasma [2345-7] 04/30/2025 03:10 PM 207 mg/dL N Blood chemistry[[id number]] Glucose [Mass/volume] in Serum or Plasma [2345-7] 04/30/2025 01:22 PM 128 mg/dL N Blood chemistry[[id number]] Glucose [Mass/volume] in Serum or Plasma [2345-7] 04/30/2025 09:01 AM 330 mg/dL N Blood chemistry[[id number]] Glucose [Mass/volume] in Serum or Plasma [2345-7] 04/29/2025 12:59 PM 275 mg/dL N Blood chemistry[[id number]] Glucose [Mass/volume] in Serum or Plasma [2345-7] 04/27/2025 04:38 PM 103 mg/dL N Blood chemistry[[id number]] Glucose [Mass/volume] in Serum or Plasma [2345-7] 04/27/2025 01:31 PM 103 mg/dL N Blood chemistry[[id number]] Glucose [Mass/volume] in Serum or Plasma [2345-7] 04/27/2025 09:24 AM 271 mg/dL N Blood chemistry[[id number]] Glucose [Mass/volume] in Serum or Plasma [2345-7] 04/27/2025 06:22 AM 298 mg/dL N Blood chemistry[[id number]] Glucose [Mass/volume] in Serum or Plasma [2345-7] 04/26/2025 04:17 PM 308 mg/dL N Blood chemistry[[id number]] Glucose [Mass/volume] in Serum or Plasma [2345-7] 04/26/2025 03:10 PM 132 mg/dL N Blood chemistry[[id number]] Glucose [Mass/volume] in Serum or Plasma [2345-7] 04/26/2025 12:53 PM 133 mg/dL N Blood chemistry[[id number]] Glucose [Mass/volume] in Serum or Plasma [2345-7] 04/26/2025 09:43 AM 221 mg/dL N Blood chemistry[[id number]] Glucose [Mass/volume] in Serum or Plasma [2345-7] 04/25/2025 05:04 PM 330 mg/dL N Blood chemistry[[id number]] Glucose [Mass/volume] in Serum or Plasma [2345-7] 04/25/2025 02:05 PM 112 mg/dL N Blood chemistry[[id number]] Glucose [Mass/volume] in Serum or Plasma [2345-7] 04/25/2025 12:32 PM 130 mg/dL N Blood chemistry[[id number]] Glucose [Mass/volume] in Serum or Plasma [2345-7] 04/25/2025 09:20 AM 486 mg/dL N Blood chemistry[[id number]] Glucose [Mass/volume] in Serum or Plasma [2345-7] 04/24/2025 03:45 PM 238 mg/dL N Blood chemistry[[id number]] Glucose [Mass/volume] in Serum or Plasma [2345-7] 04/24/2025 12:12 PM 278 mg/dL N Blood chemistry[[id number]] Glucose [Mass/volume] in Serum or Plasma [2345-7] 04/24/2025 11:48 AM 97 mg/dL N Blood chemistry[[id number]] Glucose [Mass/volume] in Serum or Plasma [2345-7] 04/24/2025 11:47 AM 97 mg/dL N Blood chemistry[[id number]] Glucose [Mass/volume] in Serum or Plasma [2345-7] 04/24/2025 09:27 AM 305 mg/dL N Blood chemistry[[id number]] Glucose [Mass/volume] in Serum or Plasma [2345-7] 04/23/2025 04:29 PM 331 mg/dL N Glucose [Mass/volume] in Serum or Plasma [2345-7] 04/23/2025 04:29 PM 331 mg/dL N Blood chemistry[[id number]] Glucose [Mass/volume] in Serum or Plasma [2345-7] 04/23/2025 04:28 PM 331 mg/dL N Blood chemistry[[id number]] Glucose [Mass/volume] in Serum or Plasma [2345-7] 04/23/2025 01:50 PM 111 mg/dL N Blood chemistry[[id number]] Glucose [Mass/volume] in Serum or Plasma [2345-7] 04/23/2025 12:30 PM 222 mg/dL N Blood chemistry[[id number]] Glucose [Mass/volume] in Serum or Plasma [2345-7] 04/23/2025 12:29 PM 222 mg/dL N Blood chemistry[[id number]] Glucose [Mass/volume] in Serum or Plasma [2345-7] 04/23/2025 12:15 PM 222 mg/dL N Blood chemistry[[id number]] Glucose [Mass/volume] in Serum or Plasma [2345-7] 04/23/2025 09:56 AM 292 mg/dL N Glucose [Mass/volume] in Serum or Plasma [2345-7] 04/23/2025 09:56 AM 292 mg/dL N Blood chemistry[[id number]] Glucose [Mass/volume] in Serum or Plasma [2345-7] 04/23/2025 09:55 AM 292 mg/dL N Blood chemistry[[id number]] Glucose [Mass/volume] in Serum or Plasma [2345-7] 04/22/2025 05:28 PM 277 mg/dL N Blood chemistry[[id number]] Glucose [Mass/volume] in Serum or Plasma [2345-7] 04/22/2025 02:17 PM 252 mg/dL N Blood chemistry[[id number]] Glucose [Mass/volume] in Serum or Plasma [2345-7] 04/22/2025 12:59 PM 203 mg/dL N Blood chemistry[[id number]] Glucose [Mass/volume] in Serum or Plasma [2345-7] 04/22/2025 10:33 AM 356 mg/dL N Blood chemistry[[id number]] Glucose [Mass/volume] in Serum or Plasma [2345-7] 04/21/2025 02:22 PM 145 mg/dL N Blood chemistry[[id number]] Glucose [Mass/volume] in Serum or Plasma [2345-7] 04/21/2025 01:23 PM 219 mg/dL N Blood chemistry[[id number]] Glucose [Mass/volume] in Serum or Plasma [2345-7] 04/21/2025 09:42 AM 266 mg/dL N Blood chemistry[[id number]] Glucose [Mass/volume] in Serum or Plasma [2345-7] 04/21/2025 06:04 AM 325 mg/dL N Blood chemistry[[id number]] Glucose [Mass/volume] in Serum or Plasma [2345-7] 04/20/2025 03:11 PM 295 mg/dL N Blood chemistry[[id number]] Glucose [Mass/volume] in Serum or Plasma [2345-7] 04/20/2025 02:02 PM 289 mg/dL N Blood chemistry[[id number]] Glucose [Mass/volume] in Serum or Plasma [2345-7] 04/20/2025 12:35 PM 218 mg/dL N Blood chemistry[[id number]] Glucose [Mass/volume] in Serum or Plasma [2345-7] 04/20/2025 08:20 AM 239 mg/dL N Blood chemistry[[id number]] Glucose [Mass/volume] in Serum or Plasma [2345-7] 04/19/2025 03:55 PM 402 mg/dL N Blood chemistry[[id number]] Glucose [Mass/volume] in Serum or Plasma [2345-7] 04/19/2025 12:36 PM 474 mg/dL N Blood chemistry[[id number]] Glucose [Mass/volume] in Serum or Plasma [2345-7] 04/19/2025 11:40 AM 428 mg/dL N Blood chemistry[[id number]] Glucose [Mass/volume] in Serum or Plasma [2345-7] 04/19/2025 09:12 AM 488 mg/dL N Blood chemistry[[id number]] Glucose [Mass/volume] in Serum or Plasma [2345-7] 04/18/2025 03:13 PM 361 mg/dL N Blood chemistry[[id number]] Glucose [Mass/volume] in Serum or Plasma [2345-7] 04/18/2025 12:19 PM 199 mg/dL N Blood chemistry[[id number]] Glucose [Mass/volume] in Serum or Plasma [2345-7] 04/18/2025 12:04 PM 379 mg/dL N Blood chemistry[[id number]] Glucose [Mass/volume] in Serum or Plasma [2345-7] 04/18/2025 08:37 AM 437 mg/dL N Blood chemistry[[id number]] Glucose [Mass/volume] in Serum or Plasma [2345-7] 04/17/2025 05:21 PM 271 mg/dL N Blood chemistry[[id number]] Glucose [Mass/volume] in Serum or Plasma [2345-7] 04/17/2025 01:59 PM 307 mg/dL N Blood chemistry[[id number]] Glucose [Mass/volume] in Serum or Plasma [2345-7] 04/17/2025 12:11 PM 142 mg/dL N Blood chemistry[[id number]] Glucose [Mass/volume] in Serum or Plasma [2345-7] 04/17/2025 09:12 AM 234 mg/dL N Blood chemistry[[id number]] Glucose [Mass/volume] in Serum or Plasma [2345-7] 04/16/2025 04:26 PM 215 mg/dL N Blood chemistry[[id number]] Glucose [Mass/volume] in Serum or Plasma [2345-7] 04/16/2025 02:36 PM 155 mg/dL N Blood chemistry[[id number]] Glucose [Mass/volume] in Serum or Plasma [2345-7] 04/16/2025 01:43 PM 139 mg/dL N Blood chemistry[[id number]] Glucose [Mass/volume] in Serum or Plasma [2345-7] 04/16/2025 08:52 AM 295 mg/dL N Blood chemistry[[id number]] Glucose [Mass/volume] in Serum or Plasma [2345-7] 04/15/2025 04:27 PM 185 mg/dL N Blood chemistry[[id number]] Glucose [Mass/volume] in Serum or Plasma [2345-7] 04/15/2025 09:11 AM 149 mg/dL N Glucose [Mass/volume] in Serum or Plasma [2345-7] 04/15/2025 09:11 AM 149 mg/dL N Blood chemistry[[id number]] Glucose [Mass/volume] in Serum or Plasma [2345-7] 03/13/2025 04:29 PM 155 mg/dL N Blood chemistry[[id number]] Glucose [Mass/volume] in Serum or Plasma [2345-7] 03/13/2025 09:33 AM 155 mg/dL N Blood chemistry[[id number]] Glucose [Mass/volume] in Serum or Plasma [2345-7] 03/13/2025 08:52 AM 261 mg/dL N Blood chemistry[[id number]] Glucose [Mass/volume] in Serum or Plasma [2345-7] 03/13/2025 11:53 AM 122 mg/dL N Blood chemistry[[id number]] Glucose [Mass/volume] in Serum or Plasma [2345-7] 03/12/2025 03:11 PM 243 mg/dL N Blood chemistry[[id number]] Glucose [Mass/volume] in Serum or Plasma [2345-7] 03/12/2025 04:39 PM 164 mg/dL N Blood chemistry[[id number]] Glucose [Mass/volume] in Serum or Plasma [2345-7] 03/12/2025 09:29 AM 84 mg/dL N Blood chemistry[[id number]] Glucose [Mass/volume] in Serum or Plasma [2345-7] 03/12/2025 12:37 PM 203 mg/dL N Blood chemistry[[id number]] Glucose [Mass/volume] in Serum or Plasma [2345-7] 03/11/2025 04:03 PM 225 mg/dL N Blood chemistry[[id number]] Glucose [Mass/volume] in Serum or Plasma [2345-7] 03/11/2025 04:45 PM 159 mg/dL N Blood chemistry[[id number]] Glucose [Mass/volume] in Serum or Plasma [2345-7] 03/11/2025 02:27 PM 98 mg/dL N Blood chemistry[[id number]] Glucose [Mass/volume] in Serum or Plasma [2345-7] 03/11/2025 10:02 AM 215 mg/dL N Blood chemistry[[id number]] Glucose [Mass/volume] in Serum or Plasma [2345-7] 03/10/2025 03:00 PM 212 mg/dL N Blood chemistry[[id number]] Glucose [Mass/volume] in Serum or Plasma [2345-7] 03/10/2025 04:15 PM 226 mg/dL N Blood chemistry[[id number]] Glucose [Mass/volume] in Serum or Plasma [2345-7] 03/10/2025 08:23 AM 277 mg/dL N Blood chemistry[[id number]] Glucose [Mass/volume] in Serum or Plasma [2345-7] 03/10/2025 01:46 PM 115 mg/dL N Glucose [Mass/volume] in Serum or Plasma [2345-7] 03/10/2025 01:46 PM 115 mg/dL N Blood chemistry[[id number]] Glucose [Mass/volume] in Serum or Plasma [2345-7] 03/09/2025 12:22 PM 224 mg/dL N Blood chemistry[[id number]] Glucose [Mass/volume] in Serum or Plasma [2345-7] 03/09/2025 03:29 PM 380 mg/dL N Blood chemistry[[id number]] Glucose [Mass/volume] in Serum or Plasma [2345-7] 03/09/2025 09:36 AM 229 mg/dL N Blood chemistry[[id number]] Glucose [Mass/volume] in Serum or Plasma [2345-7] 03/09/2025 12:53 PM 107 mg/dL N Blood chemistry[[id number]] Glucose [Mass/volume] in Serum or Plasma [2345-7] 03/08/2025 12:36 PM 205 mg/dL N Blood chemistry[[id number]] Glucose [Mass/volume] in Serum or Plasma [2345-7] 03/08/2025 04:11 PM 297 mg/dL N Blood chemistry[[id number]] Glucose [Mass/volume] in Serum or Plasma [2345-7] 03/08/2025 09:07 AM 282 mg/dL N Blood chemistry[[id number]] Glucose [Mass/volume] in Serum or Plasma [2345-7] 03/08/2025 11:25 AM 115 mg/dL N Blood chemistry[[id number]] Glucose [Mass/volume] in Serum or Plasma [2345-7] 03/08/2025 11:24 AM 115 mg/dL N Blood chemistry[[id number]] Glucose [Mass/volume] in Serum or Plasma [2345-7] 03/07/2025 12:37 PM 230 mg/dL N Blood chemistry[[id number]] Glucose [Mass/volume] in Serum or Plasma [2345-7] 03/07/2025 10:57 AM 262 mg/dL N Blood chemistry[[id number]] Glucose [Mass/volume] in Serum or Plasma [2345-7] 03/07/2025 04:16 PM 103 mg/dL N Blood chemistry[[id number]] Glucose [Mass/volume] in Serum or Plasma [2345-7] 03/07/2025 12:42 PM 79 mg/dL N Blood chemistry[[id number]] Glucose [Mass/volume] in Serum or Plasma [2345-7] 03/06/2025 12:22 PM 218 mg/dL N Blood chemistry[[id number]] Glucose [Mass/volume] in Serum or Plasma [2345-7] 03/06/2025 04:43 PM 235 mg/dL N Blood chemistry[[id number]] Glucose [Mass/volume] in Serum or Plasma [2345-7] 03/06/2025 10:13 AM 132 mg/dL N Blood chemistry[[id number]] Glucose [Mass/volume] in Serum or Plasma [2345-7] 03/06/2025 12:36 PM 137 mg/dL N Blood chemistry[[id number]] Glucose [Mass/volume] in Serum or Plasma [2345-7] 03/05/2025 01:53 PM 162 mg/dL N Blood chemistry[[id number]] Glucose [Mass/volume] in Serum or Plasma [2345-7] 03/05/2025 04:04 PM 215 mg/dL N Blood chemistry[[id number]] Glucose [Mass/volume] in Serum or Plasma [2345-7] 03/05/2025 09:04 AM 187 mg/dL N Blood chemistry[[id number]] Glucose [Mass/volume] in Serum or Plasma [2345-7] 03/05/2025 12:38 PM 99 mg/dL N Blood chemistry[[id number]] Glucose [Mass/volume] in Serum or Plasma [2345-7] 03/04/2025 12:48 PM 364 mg/dL N Blood chemistry[[id number]] Glucose [Mass/volume] in Serum or Plasma [2345-7] 03/04/2025 05:30 PM 183 mg/dL N Blood chemistry[[id number]] Glucose [Mass/volume] in Serum or Plasma [2345-7] 03/04/2025 09:08 AM 262 mg/dL N Blood chemistry[[id number]] Glucose [Mass/volume] in Serum or Plasma [2345-7] 03/04/2025 01:12 PM 105 mg/dL N Blood chemistry[[id number]] Glucose [Mass/volume] in Serum or Plasma [2345-7] 03/03/2025 03:35 PM 290 mg/dL N Blood chemistry[[id number]] Glucose [Mass/volume] in Serum or Plasma [2345-7] 03/03/2025 03:40 PM 232 mg/dL N Blood chemistry[[id number]] Glucose [Mass/volume] in Serum or Plasma [2345-7] 03/03/2025 09:18 AM 266 mg/dL N Blood chemistry[[id number]] Glucose [Mass/volume] in Serum or Plasma [2345-7] 03/03/2025 12:53 PM 151 mg/dL N Blood chemistry[[id number]] Glucose [Mass/volume] in Serum or Plasma [2345-7] 03/02/2025 01:12 PM 151 mg/dL N Blood chemistry[[id number]] Glucose [Mass/volume] in Serum or Plasma [2345-7] 03/02/2025 04:47 PM 244 mg/dL N Blood chemistry[[id number]] Glucose [Mass/volume] in Serum or Plasma [2345-7] 03/02/2025 09:46 AM 191 mg/dL N Blood chemistry[[id number]] Glucose [Mass/volume] in Serum or Plasma [2345-7] 03/02/2025 12:30 PM 170 mg/dL N Blood chemistry[[id number]] Glucose [Mass/volume] in Serum or Plasma [2345-7] 03/02/2025 11:20 AM 170 mg/dL N Blood chemistry[[id number]] Glucose [Mass/volume] in Serum or Plasma [2345-7] 03/01/2025 01:22 PM 221 mg/dL N Blood chemistry[[id number]] Glucose [Mass/volume] in Serum or Plasma [2345-7] 03/01/2025 04:27 PM 235 mg/dL N Blood chemistry[[id number]] Glucose [Mass/volume] in Serum or Plasma [2345-7] 03/01/2025 10:05 AM 78 mg/dL N Blood chemistry[[id number]] Glucose [Mass/volume] in Serum or Plasma [2345-7] 03/01/2025 12:57 PM 109 mg/dL N Blood chemistry[[id number]] Glucose [Mass/volume] in Serum or Plasma [2345-7] 03/01/2025 11:02 AM 109 mg/dL N Blood chemistry[[id number]] Glucose [Mass/volume] in Serum or Plasma [2345-7] 02/28/2025 04:56 PM 122 mg/dL N Blood chemistry[[id number]] Glucose [Mass/volume] in Serum or Plasma [2345-7] 02/28/2025 11:22 AM 308 mg/dL N Blood chemistry[[id number]] Glucose [Mass/volume] in Serum or Plasma [2345-7] 02/28/2025 04:27 PM 261 mg/dL N Blood chemistry[[id number]] Glucose [Mass/volume] in Serum or Plasma [2345-7] 02/28/2025 12:39 PM 101 mg/dL N Blood chemistry[[id number]] Glucose [Mass/volume] in Serum or Plasma [2345-7] 02/27/2025 12:12 PM 223 mg/dL N Blood chemistry[[id number]] Glucose [Mass/volume] in Serum or Plasma [2345-7] 02/27/2025 04:16 PM 254 mg/dL N Blood chemistry[[id number]] Glucose [Mass/volume] in Serum or Plasma [2345-7] 02/27/2025 09:15 AM 325 mg/dL N Blood chemistry[[id number]] Glucose [Mass/volume] in Serum or Plasma [2345-7] 02/27/2025 11:56 AM 189 mg/dL N Blood chemistry[[id number]] Glucose [Mass/volume] in Serum or Plasma [2345-7] 02/26/2025 04:22 PM 291 mg/dL N Blood chemistry[[id number]] Glucose [Mass/volume] in Serum or Plasma [2345-7] 02/26/2025 04:49 PM 165 mg/dL N Blood chemistry[[id number]] Glucose [Mass/volume] in Serum or Plasma [2345-7] 02/26/2025 09:12 AM 245 mg/dL N Blood chemistry[[id number]] Glucose [Mass/volume] in Serum or Plasma [2345-7] 02/26/2025 12:31 PM 126 mg/dL N Blood chemistry[[id number]] Glucose [Mass/volume] in Serum or Plasma [2345-7] 02/25/2025 04:26 PM 257 mg/dL N Blood chemistry[[id number]] Glucose [Mass/volume] in Serum or Plasma [2345-7] 02/25/2025 04:06 PM 263 mg/dL N Blood chemistry[[id number]] Glucose [Mass/volume] in Serum or Plasma [2345-7] 02/25/2025 09:59 AM 277 mg/dL N Blood chemistry[[id number]] Glucose [Mass/volume] in Serum or Plasma [2345-7] 02/25/2025 12:13 PM 176 mg/dL N Blood chemistry[[id number]] Glucose [Mass/volume] in Serum or Plasma [2345-7] 02/24/2025 01:07 PM 259 mg/dL N Blood chemistry[[id number]] Glucose [Mass/volume] in Serum or Plasma [2345-7] 02/24/2025 04:28 PM 218 mg/dL N Blood chemistry[[id number]] Glucose [Mass/volume] in Serum or Plasma [2345-7] 02/24/2025 08:37 AM 325 mg/dL N Blood chemistry[[id number]] Glucose [Mass/volume] in Serum or Plasma [2345-7] 02/24/2025 11:50 AM 130 mg/dL N Blood chemistry[[id number]] Glucose [Mass/volume] in Serum or Plasma [2345-7] 02/23/2025 03:21 PM 199 mg/dL N Blood chemistry[[id number]] Glucose [Mass/volume] in Serum or Plasma [2345-7] 02/23/2025 04:05 PM 276 mg/dL N Blood chemistry[[id number]] Glucose [Mass/volume] in Serum or Plasma [2345-7] 02/23/2025 09:41 AM 319 mg/dL N Blood chemistry[[id number]] Glucose [Mass/volume] in Serum or Plasma [2345-7] 02/23/2025 12:33 PM 126 mg/dL N Blood chemistry[[id number]] Glucose [Mass/volume] in Serum or Plasma [2345-7] 02/22/2025 03:18 PM 181 mg/dL N Blood chemistry[[id number]] Glucose [Mass/volume] in Serum or Plasma [2345-7] 02/22/2025 04:02 PM 346 mg/dL N Blood chemistry[[id number]] Glucose [Mass/volume] in Serum or Plasma [2345-7] 02/22/2025 09:38 AM 286 mg/dL N Blood chemistry[[id number]] Glucose [Mass/volume] in Serum or Plasma [2345-7] 02/22/2025 08:53 AM 286 mg/dL N Blood chemistry[[id number]] Glucose [Mass/volume] in Serum or Plasma [2345-7] 02/22/2025 12:00 PM 197 mg/dL N Blood chemistry[[id number]] Glucose [Mass/volume] in Serum or Plasma [2345-7] 02/21/2025 12:01 PM 277 mg/dL N Blood chemistry[[id number]] Glucose [Mass/volume] in Serum or Plasma [2345-7] 02/21/2025 05:06 PM 211 mg/dL N Blood chemistry[[id number]] Glucose [Mass/volume] in Serum or Plasma [2345-7] 02/21/2025 05:05 PM 211 mg/dL N Glucose [Mass/volume] in Serum or Plasma [2345-7] 02/21/2025 05:05 PM 211 mg/dL N Blood chemistry[[id number]] Glucose [Mass/volume] in Serum or Plasma [2345-7] 02/21/2025 02:47 PM 239 mg/dL N Blood chemistry[[id number]] Glucose [Mass/volume] in Serum or Plasma [2345-7] 02/21/2025 09:59 AM 250 mg/dL N Glucose [Mass/volume] in Serum or Plasma [2345-7] 02/21/2025 09:59 AM 250 mg/dL N Glucose [Mass/volume] in Serum or Plasma [2345-7] 02/21/2025 09:59 AM 250 mg/dL N Blood chemistry[[id number]] Glucose [Mass/volume] in Serum or Plasma [2345-7] 02/21/2025 01:09 PM 239 mg/dL N Blood chemistry[[id number]] Glucose [Mass/volume] in Serum or Plasma [2345-7] 02/20/2025 12:56 PM 159 mg/dL N Blood chemistry[[id number]] Glucose [Mass/volume] in Serum or Plasma [2345-7] 02/20/2025 05:14 PM 220 mg/dL N Blood chemistry[[id number]] Glucose [Mass/volume] in Serum or Plasma [2345-7] 02/20/2025 10:26 AM 184 mg/dL N Blood chemistry[[id number]] Glucose [Mass/volume] in Serum or Plasma [2345-7] 02/20/2025 12:41 PM 203 mg/dL N Blood chemistry[[id number]] Glucose [Mass/volume] in Serum or Plasma [2345-7] 02/19/2025 12:10 PM 220 mg/dL N Blood chemistry[[id number]] Glucose [Mass/volume] in Serum or Plasma [2345-7] 02/19/2025 03:28 PM 200 mg/dL N Blood chemistry[[id number]] Glucose [Mass/volume] in Serum or Plasma [2345-7] 02/19/2025 08:50 AM 237 mg/dL N Blood chemistry[[id number]] Glucose [Mass/volume] in Serum or Plasma [2345-7] 02/19/2025 12:08 PM 239 mg/dL N Blood chemistry[[id number]] Glucose [Mass/volume] in Serum or Plasma [2345-7] 02/18/2025 03:45 PM 209 mg/dL N Blood chemistry[[id number]] Glucose [Mass/volume] in Serum or Plasma [2345-7] 02/18/2025 03:31 PM 168 mg/dL N Blood chemistry[[id number]] Glucose [Mass/volume] in Serum or Plasma [2345-7] 02/18/2025 03:30 PM 168 mg/dL N Blood chemistry[[id number]] Glucose [Mass/volume] in Serum or Plasma [2345-7] 02/18/2025 08:55 AM 198 mg/dL N Blood chemistry[[id number]] Glucose [Mass/volume] in Serum or Plasma [2345-7] 02/18/2025 02:14 PM 104 mg/dL N Blood chemistry[[id number]] Glucose [Mass/volume] in Serum or Plasma [2345-7] 02/18/2025 11:43 AM 104 mg/dL N Blood chemistry[[id number]] Glucose [Mass/volume] in Serum or Plasma [2345-7] 02/17/2025 02:25 PM 137 mg/dL N Blood chemistry[[id number]] Glucose [Mass/volume] in Serum or Plasma [2345-7] 02/17/2025 04:11 PM 163 mg/dL N Blood chemistry[[id number]] Glucose [Mass/volume] in Serum or Plasma [2345-7] 02/17/2025 08:43 AM 179 mg/dL N Blood chemistry[[id number]] Glucose [Mass/volume] in Serum or Plasma [2345-7] 02/17/2025 02:14 PM 140 mg/dL N Blood chemistry[[id number]] Glucose [Mass/volume] in Serum or Plasma [2345-7] 02/17/2025 01:58 PM 140 mg/dL N Blood chemistry[[id number]] Glucose [Mass/volume] in Serum or Plasma [2345-7] 02/16/2025 01:10 PM 279 mg/dL N Blood chemistry[[id number]] Glucose [Mass/volume] in Serum or Plasma [2345-7] 02/16/2025 05:37 PM 268 mg/dL N Blood chemistry[[id number]] Glucose [Mass/volume] in Serum or Plasma [2345-7] 02/16/2025 10:06 AM 323 mg/dL N Blood chemistry[[id number]] Glucose [Mass/volume] in Serum or Plasma [2345-7] 02/16/2025 12:55 PM 123 mg/dL N Blood chemistry[[id number]] Glucose [Mass/volume] in Serum or Plasma [2345-7] 02/15/2025 12:25 PM 121 mg/dL N Blood chemistry[[id number]] Glucose [Mass/volume] in Serum or Plasma [2345-7] 02/15/2025 05:25 PM 276 mg/dL N Blood chemistry[[id number]] Glucose [Mass/volume] in Serum or Plasma [2345-7] 02/15/2025 10:08 AM 154 mg/dL N Blood chemistry[[id number]] Glucose [Mass/volume] in Serum or Plasma [2345-7] 02/15/2025 12:49 PM 315 mg/dL N Blood chemistry[[id number]] Glucose [Mass/volume] in Serum or Plasma [2345-7] 02/14/2025 12:47 PM 241 mg/dL N Blood chemistry[[id number]] Glucose [Mass/volume] in Serum or Plasma [2345-7] 02/14/2025 04:12 PM 285 mg/dL N Blood chemistry[[id number]] Glucose [Mass/volume] in Serum or Plasma [2345-7] 02/14/2025 09:22 AM 307 mg/dL N Blood chemistry[[id number]] Glucose [Mass/volume] in Serum or Plasma [2345-7] 02/14/2025 01:49 PM 180 mg/dL N Blood chemistry[[id number]] Glucose [Mass/volume] in Serum or Plasma [2345-7] 02/13/2025 12:27 PM 212 mg/dL N Blood chemistry[[id number]] Glucose [Mass/volume] in Serum or Plasma [2345-7] 02/13/2025 04:27 PM 232 mg/dL N Blood chemistry[[id number]] Glucose [Mass/volume] in Serum or Plasma [2345-7] 02/13/2025 10:23 AM 276 mg/dL N Blood chemistry[[id number]] Glucose [Mass/volume] in Serum or Plasma [2345-7] 02/13/2025 12:45 PM 122 mg/dL N Blood chemistry[[id number]] Glucose [Mass/volume] in Serum or Plasma [2345-7] 02/12/2025 02:44 PM 294 mg/dL N Blood chemistry[[id number]] Glucose [Mass/volume] in Serum or Plasma [2345-7] 02/12/2025 05:58 PM 242 mg/dL N Blood chemistry[[id number]] Glucose [Mass/volume] in Serum or Plasma [2345-7] 02/12/2025 10:13 AM 303 mg/dL N Blood chemistry[[id number]] Glucose [Mass/volume] in Serum or Plasma [2345-7] 02/12/2025 01:35 PM 113 mg/dL N Blood chemistry[[id number]] Glucose [Mass/volume] in Serum or Plasma [2345-7] 02/11/2025 03:23 PM 184 mg/dL N Blood chemistry[[id number]] Glucose [Mass/volume] in Serum or Plasma [2345-7] 02/11/2025 09:16 AM 298 mg/dL N Blood chemistry[[id number]] Glucose [Mass/volume] in Serum or Plasma [2345-7] 02/11/2025 06:18 AM 280 mg/dL N Blood chemistry[[id number]] Glucose [Mass/volume] in Serum or Plasma [2345-7] 02/11/2025 12:11 PM 119 mg/dL N Blood chemistry[[id number]] Glucose [Mass/volume] in Serum or Plasma [2345-7] 02/10/2025 11:44 AM 232 mg/dL N Blood chemistry[[id number]] Glucose [Mass/volume] in Serum or Plasma [2345-7] 02/10/2025 04:18 PM 264 mg/dL N Blood chemistry[[id number]] Glucose [Mass/volume] in Serum or Plasma [2345-7] 02/10/2025 09:33 AM 237 mg/dL N Blood chemistry[[id number]] Glucose [Mass/volume] in Serum or Plasma [2345-7] 02/10/2025 12:19 PM 203 mg/dL N Blood chemistry[[id number]] Glucose [Mass/volume] in Serum or Plasma [2345-7] 02/09/2025 04:21 PM 268 mg/dL N Blood chemistry[[id number]] Glucose [Mass/volume] in Serum or Plasma [2345-7] 02/09/2025 03:51 PM 308 mg/dL N Blood chemistry[[id number]] Glucose [Mass/volume] in Serum or Plasma [2345-7] 02/09/2025 08:46 AM 287 mg/dL N Blood chemistry[[id number]] Glucose [Mass/volume] in Serum or Plasma [2345-7] 02/09/2025 12:33 PM 147 mg/dL N Blood chemistry[[id number]] Glucose [Mass/volume] in Serum or Plasma [2345-7] 02/08/2025 02:34 PM 285 mg/dL N Blood chemistry[[id number]] Glucose [Mass/volume] in Serum or Plasma [2345-7] 02/08/2025 04:25 PM 371 mg/dL N Blood chemistry[[id number]] Glucose [Mass/volume] in Serum or Plasma [2345-7] 02/08/2025 08:38 AM 402 mg/dL N Blood chemistry[[id number]] Glucose [Mass/volume] in Serum or Plasma [2345-7] 02/08/2025 11:50 AM 188 mg/dL N Blood chemistry[[id number]] Glucose [Mass/volume] in Serum or Plasma [2345-7] 02/07/2025 12:36 PM 287 mg/dL N Blood chemistry[[id number]] Glucose [Mass/volume] in Serum or Plasma [2345-7] 02/07/2025 04:24 PM 273 mg/dL N Blood chemistry[[id number]] Glucose [Mass/volume] in Serum or Plasma [2345-7] 02/07/2025 09:08 AM 311 mg/dL N Blood chemistry[[id number]] Glucose [Mass/volume] in Serum or Plasma [2345-7] 02/07/2025 12:37 PM 137 mg/dL N Blood chemistry[[id number]] Glucose [Mass/volume] in Serum or Plasma [2345-7] 02/06/2025 11:59 AM 185 mg/dL N Blood chemistry[[id number]] Glucose [Mass/volume] in Serum or Plasma [2345-7] 02/06/2025 05:19 PM 218 mg/dL N Blood chemistry[[id number]] Glucose [Mass/volume] in Serum or Plasma [2345-7] 02/06/2025 09:34 AM 197 mg/dL N Blood chemistry[[id number]] Glucose [Mass/volume] in Serum or Plasma [2345-7] 02/06/2025 12:13 PM 116 mg/dL N Blood chemistry[[id number]] Glucose [Mass/volume] in Serum or Plasma [2345-7] 02/05/2025 02:00 PM 239 mg/dL N Blood chemistry[[id number]] Glucose [Mass/volume] in Serum or Plasma [2345-7] 02/05/2025 04:07 PM 232 mg/dL N Blood chemistry[[id number]] Glucose [Mass/volume] in Serum or Plasma [2345-7] 02/05/2025 09:12 AM 237 mg/dL N Blood chemistry[[id number]] Glucose [Mass/volume] in Serum or Plasma [2345-7] 02/05/2025 01:00 PM 181 mg/dL N Blood chemistry[[id number]] Glucose [Mass/volume] in Serum or Plasma [2345-7] 02/04/2025 02:28 PM 199 mg/dL N Blood chemistry[[id number]] Glucose [Mass/volume] in Serum or Plasma [2345-7] 02/04/2025 05:12 PM 224 mg/dL N Blood chemistry[[id number]] Glucose [Mass/volume] in Serum or Plasma [2345-7] 02/04/2025 09:40 AM 209 mg/dL N Blood chemistry[[id number]] Glucose [Mass/volume] in Serum or Plasma [2345-7] 02/04/2025 12:30 PM 152 mg/dL N Blood chemistry[[id number]] Glucose [Mass/volume] in Serum or Plasma [2345-7] 02/03/2025 02:10 PM 208 mg/dL N Blood chemistry[[id number]] Glucose [Mass/volume] in Serum or Plasma [2345-7] 02/03/2025 03:13 PM 249 mg/dL N Blood chemistry[[id number]] Glucose [Mass/volume] in Serum or Plasma [2345-7] 02/03/2025 08:24 AM 255 mg/dL N Blood chemistry[[id number]] Glucose [Mass/volume] in Serum or Plasma [2345-7] 02/03/2025 12:21 PM 124 mg/dL N Blood chemistry[[id number]] Glucose [Mass/volume] in Serum or Plasma [2345-7] 02/02/2025 12:29 PM 289 mg/dL N Blood chemistry[[id number]] Glucose [Mass/volume] in Serum or Plasma [2345-7] 02/02/2025 11:05 AM 284 mg/dL N Blood chemistry[[id number]] Glucose [Mass/volume] in Serum or Plasma [2345-7] 02/02/2025 04:26 PM 208 mg/dL N Blood chemistry[[id number]] Glucose [Mass/volume] in Serum or Plasma [2345-7] 02/02/2025 02:37 PM 133 mg/dL N Blood chemistry[[id number]] Glucose [Mass/volume] in Serum or Plasma [2345-7] 02/01/2025 02:03 PM 294 mg/dL N Blood chemistry[[id number]] Glucose [Mass/volume] in Serum or Plasma [2345-7] 02/01/2025 05:32 PM 297 mg/dL N Blood chemistry[[id number]] Glucose [Mass/volume] in Serum or Plasma [2345-7] 02/01/2025 09:46 AM 497 mg/dL N Blood chemistry[[id number]] Glucose [Mass/volume] in Serum or Plasma [2345-7] 02/01/2025 08:51 AM 497 mg/dL N Blood chemistry[[id number]] Glucose [Mass/volume] in Serum or Plasma [2345-7] 02/01/2025 01:58 PM 134 mg/dL N Blood chemistry[[id number]] Glucose [Mass/volume] in Serum or Plasma [2345-7] 02/01/2025 01:03 PM 134 mg/dL N Blood chemistry[[id number]] Glucose [Mass/volume] in Serum or Plasma [2345-7] 01/31/2025 12:25 PM 273 mg/dL N Blood chemistry[[id number]] Glucose [Mass/volume] in Serum or Plasma [2345-7] 01/31/2025 04:34 PM 277 mg/dL N Blood chemistry[[id number]] Glucose [Mass/volume] in Serum or Plasma [2345-7] 01/31/2025 09:19 AM 317 mg/dL N Blood chemistry[[id number]] Glucose [Mass/volume] in Serum or Plasma [2345-7] 01/31/2025 01:12 PM 145 mg/dL N Blood chemistry[[id number]] Glucose [Mass/volume] in Serum or Plasma [2345-7] 01/30/2025 12:56 PM 235 mg/dL N Blood chemistry[[id number]] Glucose [Mass/volume] in Serum or Plasma [2345-7] 01/30/2025 03:42 PM 233 mg/dL N Blood chemistry[[id number]] Glucose [Mass/volume] in Serum or Plasma [2345-7] 01/30/2025 09:00 AM 281 mg/dL N Blood chemistry[[id number]] Glucose [Mass/volume] in Serum or Plasma [2345-7] 01/30/2025 12:27 PM 143 mg/dL N Blood chemistry[[id number]] Glucose [Mass/volume] in Serum or Plasma [2345-7] 01/29/2025 02:02 PM 222 mg/dL N Blood chemistry[[id number]] Glucose [Mass/volume] in Serum or Plasma [2345-7] 01/29/2025 10:43 AM 270 mg/dL N Blood chemistry[[id number]] Glucose [Mass/volume] in Serum or Plasma [2345-7] 01/29/2025 04:30 PM 352 mg/dL N Blood chemistry[[id number]] Glucose [Mass/volume] in Serum or Plasma [2345-7] 01/29/2025 12:15 PM 120 mg/dL N Blood chemistry[[id number]] Glucose [Mass/volume] in Serum or Plasma [2345-7] 01/28/2025 02:55 PM 211 mg/dL N Blood chemistry[[id number]] Glucose [Mass/volume] in Serum or Plasma [2345-7] 01/28/2025 04:03 PM 285 mg/dL N Blood chemistry[[id number]] Glucose [Mass/volume] in Serum or Plasma [2345-7] 01/28/2025 09:38 AM 362 mg/dL N Blood chemistry[[id number]] Glucose [Mass/volume] in Serum or Plasma [2345-7] 01/28/2025 12:33 PM 124 mg/dL N Blood chemistry[[id number]] Glucose [Mass/volume] in Serum or Plasma [2345-7] 01/27/2025 03:16 PM 201 mg/dL N Blood chemistry[[id number]] Glucose [Mass/volume] in Serum or Plasma [2345-7] 01/27/2025 04:09 PM 390 mg/dL N Blood chemistry[[id number]] Glucose [Mass/volume] in Serum or Plasma [2345-7] 01/27/2025 08:56 AM 266 mg/dL N Blood chemistry[[id number]] Glucose [Mass/volume] in Serum or Plasma [2345-7] 01/27/2025 01:08 PM 88 mg/dL N Blood chemistry[[id number]] Glucose [Mass/volume] in Serum or Plasma [2345-7] 01/26/2025 12:42 PM 349 mg/dL N Blood chemistry[[id number]] Glucose [Mass/volume] in Serum or Plasma [2345-7] 01/26/2025 03:23 PM 206 mg/dL N Blood chemistry[[id number]] Glucose [Mass/volume] in Serum or Plasma [2345-7] 01/26/2025 09:35 AM 355 mg/dL N Blood chemistry[[id number]] Glucose [Mass/volume] in Serum or Plasma [2345-7] 01/26/2025 11:52 AM 136 mg/dL N Blood chemistry[[id number]] Glucose [Mass/volume] in Serum or Plasma [2345-7] 01/25/2025 11:56 AM 282 mg/dL N Blood chemistry[[id number]] Glucose [Mass/volume] in Serum or Plasma [2345-7] 01/25/2025 04:02 PM 198 mg/dL N Blood chemistry[[id number]] Glucose [Mass/volume] in Serum or Plasma [2345-7] 01/25/2025 09:00 AM 220 mg/dL N Blood chemistry[[id number]] Glucose [Mass/volume] in Serum or Plasma [2345-7] 01/25/2025 11:43 AM 146 mg/dL N Blood chemistry[[id number]] Glucose [Mass/volume] in Serum or Plasma [2345-7] 01/24/2025 12:27 PM 444 mg/dL N Blood chemistry[[id number]] Glucose [Mass/volume] in Serum or Plasma [2345-7] 01/24/2025 08:29 AM 353 mg/dL N Blood chemistry[[id number]] Glucose [Mass/volume] in Serum or Plasma [2345-7] 01/24/2025 03:10 PM 282 mg/dL N Blood chemistry[[id number]] Glucose [Mass/volume] in Serum or Plasma [2345-7] 01/24/2025 12:00 PM 124 mg/dL N Blood chemistry[[id number]] Glucose [Mass/volume] in Serum or Plasma [2345-7] 01/23/2025 11:49 AM 227 mg/dL N Blood chemistry[[id number]] Glucose [Mass/volume] in Serum or Plasma [2345-7] 01/23/2025 05:30 PM 269 mg/dL N Blood chemistry[[id number]] Glucose [Mass/volume] in Serum or Plasma [2345-7] 01/23/2025 09:09 AM 267 mg/dL N Blood chemistry[[id number]] Glucose [Mass/volume] in Serum or Plasma [2345-7] 01/23/2025 12:32 PM 94 mg/dL N Blood chemistry[[id number]] Glucose [Mass/volume] in Serum or Plasma [2345-7] 01/22/2025 12:35 PM 221 mg/dL N Blood chemistry[[id number]] Glucose [Mass/volume] in Serum or Plasma [2345-7] 01/22/2025 04:32 PM 264 mg/dL N Blood chemistry[[id number]] Glucose [Mass/volume] in Serum or Plasma [2345-7] 01/22/2025 09:30 AM 232 mg/dL N Blood chemistry[[id number]] Glucose [Mass/volume] in Serum or Plasma [2345-7] 01/22/2025 12:53 PM 121 mg/dL N Blood chemistry[[id number]] Glucose [Mass/volume] in Serum or Plasma [2345-7] 01/22/2025 12:52 PM 121 mg/dL N Blood chemistry[[id number]] Glucose [Mass/volume] in Serum or Plasma [2345-7] 01/21/2025 12:35 PM 321 mg/dL N Blood chemistry[[id number]] Glucose [Mass/volume] in Serum or Plasma [2345-7] 01/21/2025 04:30 PM 243 mg/dL N Blood chemistry[[id number]] Glucose [Mass/volume] in Serum or Plasma [2345-7] 01/21/2025 09:35 AM 200 mg/dL N Blood chemistry[[id number]] Glucose [Mass/volume] in Serum or Plasma [2345-7] 01/21/2025 12:21 PM 142 mg/dL N Blood chemistry[[id number]] Glucose [Mass/volume] in Serum or Plasma [2345-7] 01/21/2025 05:54 PM 226 mg/dL N Blood chemistry[[id number]] Glucose [Mass/volume] in Serum or Plasma [2345-7] 01/20/2025 09:41 AM 133 mg/dL N Blood chemistry[[id number]] Glucose [Mass/volume] in Serum or Plasma [2345-7] 01/20/2025 06:15 AM 217 mg/dL N Blood chemistry[[id number]] Glucose [Mass/volume] in Serum or Plasma [2345-7] 01/20/2025 12:40 PM 144 mg/dL N Blood chemistry[[id number]] Glucose [Mass/volume] in Serum or Plasma [2345-7] 01/19/2025 01:05 PM 158 mg/dL N Blood chemistry[[id number]] Glucose [Mass/volume] in Serum or Plasma [2345-7] 01/19/2025 04:00 PM 290 mg/dL N Blood chemistry[[id number]] Glucose [Mass/volume] in Serum or Plasma [2345-7] 01/19/2025 09:45 AM 199 mg/dL N Glucose [Mass/volume] in Serum or Plasma [2345-7] 01/19/2025 09:45 AM 199 mg/dL N Blood chemistry[[id number]] Glucose [Mass/volume] in Serum or Plasma [2345-7] 01/19/2025 02:47 PM 231 mg/dL N Blood chemistry[[id number]] Glucose [Mass/volume] in Serum or Plasma [2345-7] 01/18/2025 12:52 PM 223 mg/dL N Blood chemistry[[id number]] Glucose [Mass/volume] in Serum or Plasma [2345-7] 01/18/2025 05:05 PM 245 mg/dL N Blood chemistry[[id number]] Glucose [Mass/volume] in Serum or Plasma [2345-7] 01/18/2025 12:36 PM 106 mg/dL N Blood chemistry[[id number]] Glucose [Mass/volume] in Serum or Plasma [2345-7] 01/18/2025 09:43 AM 296 mg/dL N Blood chemistry[[id number]] Glucose [Mass/volume] in Serum or Plasma [2345-7] 01/17/2025 12:16 PM 184 mg/dL N Blood chemistry[[id number]] Glucose [Mass/volume] in Serum or Plasma [2345-7] 01/17/2025 08:21 AM 350 mg/dL N Blood chemistry[[id number]] Glucose [Mass/volume] in Serum or Plasma [2345-7] 01/17/2025 04:36 PM 153 mg/dL N Blood chemistry[[id number]] Glucose [Mass/volume] in Serum or Plasma [2345-7] 01/17/2025 01:10 PM 186 mg/dL N Blood chemistry[[id number]] Glucose [Mass/volume] in Serum or Plasma [2345-7] 01/16/2025 04:36 PM 161 mg/dL N Blood chemistry[[id number]] Glucose [Mass/volume] in Serum or Plasma [2345-7] 01/16/2025 12:36 PM 351 mg/dL N Blood chemistry[[id number]] Glucose [Mass/volume] in Serum or Plasma [2345-7] 01/16/2025 12:11 PM 195 mg/dL N Blood chemistry[[id number]] Glucose [Mass/volume] in Serum or Plasma [2345-7] 01/16/2025 08:29 AM 236 mg/dL N Glucose [Mass/volume] in Serum or Plasma [2345-7] 01/16/2025 08:29 AM 236 mg/dL N Blood chemistry[[id number]] Glucose [Mass/volume] in Serum or Plasma [2345-7] 01/15/2025 03:27 PM 235 mg/dL N Blood chemistry[[id number]] Glucose [Mass/volume] in Serum or Plasma [2345-7] 01/15/2025 10:16 AM 196 mg/dL N Blood chemistry[[id number]] Glucose [Mass/volume] in Serum or Plasma [2345-7] 01/15/2025 03:20 PM 321 mg/dL N Blood chemistry[[id number]] Glucose [Mass/volume] in Serum or Plasma [2345-7] 01/15/2025 01:34 PM 173 mg/dL N Blood chemistry[[id number]] Glucose [Mass/volume] in Serum or Plasma [2345-7] 01/14/2025 05:24 PM 280 mg/dL N Blood chemistry[[id number]] Glucose [Mass/volume] in Serum or Plasma [2345-7] 01/14/2025 03:28 PM 158 mg/dL N Blood chemistry[[id number]] Glucose [Mass/volume] in Serum or Plasma [2345-7] 01/14/2025 02:15 PM 107 mg/dL N Blood chemistry[[id number]] Glucose [Mass/volume] in Serum or Plasma [2345-7] 01/14/2025 10:07 AM 306 mg/dL N Blood chemistry[[id number]] Glucose [Mass/volume] in Serum or Plasma [2345-7] 01/13/2025 01:49 PM 175 mg/dL N Blood chemistry[[id number]] Glucose [Mass/volume] in Serum or Plasma [2345-7] 01/13/2025 09:42 AM 188 mg/dL N Blood chemistry[[id number]] Glucose [Mass/volume] in Serum or Plasma [2345-7] 01/13/2025 05:03 PM 290 mg/dL N Blood chemistry[[id number]] Glucose [Mass/volume] in Serum or Plasma [2345-7] 01/13/2025 02:51 PM 253 mg/dL N Blood chemistry[[id number]] Glucose [Mass/volume] in Serum or Plasma [2345-7] 01/12/2025 01:56 PM 241 mg/dL N Blood chemistry[[id number]] Glucose [Mass/volume] in Serum or Plasma [2345-7] 01/12/2025 11:41 AM 198 mg/dL N Blood chemistry[[id number]] Glucose [Mass/volume] in Serum or Plasma [2345-7] 01/12/2025 04:35 PM 264 mg/dL N Blood chemistry[[id number]] Glucose [Mass/volume] in Serum or Plasma [2345-7] 01/12/2025 01:36 PM 147 mg/dL N Blood chemistry[[id number]] Glucose [Mass/volume] in Serum or Plasma [2345-7] 01/11/2025 12:51 PM 296 mg/dL N Blood chemistry[[id number]] Glucose [Mass/volume] in Serum or Plasma [2345-7] 01/11/2025 05:07 PM 322 mg/dL N Blood chemistry[[id number]] Glucose [Mass/volume] in Serum or Plasma [2345-7] 01/11/2025 01:25 PM 112 mg/dL N Blood chemistry[[id number]] Glucose [Mass/volume] in Serum or Plasma [2345-7] 01/11/2025 09:45 AM 390 mg/dL N Blood chemistry[[id number]] Glucose [Mass/volume] in Serum or Plasma [2345-7] 01/10/2025 01:19 PM 257 mg/dL N Blood chemistry[[id number]] Glucose [Mass/volume] in Serum or Plasma [2345-7] 01/10/2025 11:49 AM 304 mg/dL N Blood chemistry[[id number]] Glucose [Mass/volume] in Serum or Plasma [2345-7] 01/10/2025 05:31 PM 396 mg/dL N Blood chemistry[[id number]] Glucose [Mass/volume] in Serum or Plasma [2345-7] 01/10/2025 03:20 PM 221 mg/dL N Blood chemistry[[id number]] Glucose [Mass/volume] in Serum or Plasma [2345-7] 01/09/2025 05:17 PM 403 mg/dL N Blood chemistry[[id number]] Glucose [Mass/volume] in Serum or Plasma [2345-7] 01/09/2025 01:06 PM 184 mg/dL N Blood chemistry[[id number]] Glucose [Mass/volume] in Serum or Plasma [2345-7] 01/09/2025 12:58 PM 447 mg/dL N Blood chemistry[[id number]] Glucose [Mass/volume] in Serum or Plasma [2345-7] 01/09/2025 10:20 AM 410 mg/dL N Blood chemistry[[id number]] Glucose [Mass/volume] in Serum or Plasma [2345-7] 01/08/2025 04:34 PM 240 mg/dL N Blood chemistry[[id number]] Glucose [Mass/volume] in Serum or Plasma [2345-7] 01/08/2025 10:56 AM 448 mg/dL N Blood chemistry[[id number]] Glucose [Mass/volume] in Serum or Plasma [2345-7] 01/08/2025 05:25 PM 224 mg/dL N Blood chemistry[[id number]] Glucose [Mass/volume] in Serum or Plasma [2345-7] 01/08/2025 02:11 PM 138 mg/dL N Blood chemistry[[id number]] Glucose [Mass/volume] in Serum or Plasma [2345-7] 01/07/2025 03:47 PM 138 mg/dL N Blood chemistry[[id number]] Glucose [Mass/volume] in Serum or Plasma [2345-7] 01/07/2025 10:24 AM 138 mg/dL N Blood chemistry[[id number]] Glucose [Mass/volume] in Serum or Plasma [2345-7] 01/07/2025 05:04 PM 299 mg/dL N Blood chemistry[[id number]] Glucose [Mass/volume] in Serum or Plasma [2345-7] 01/07/2025 02:15 PM 150 mg/dL N Blood chemistry[[id number]] Glucose [Mass/volume] in Serum or Plasma [2345-7] 01/07/2025 01:34 PM 150 mg/dL N Blood chemistry[[id number]] Glucose [Mass/volume] in Serum or Plasma [2345-7] 01/06/2025 02:45 PM 251 mg/dL N Blood chemistry[[id number]] Glucose [Mass/volume] in Serum or Plasma [2345-7] 01/06/2025 02:35 PM 194 mg/dL N Blood chemistry[[id number]] Glucose [Mass/volume] in Serum or Plasma [2345-7] 01/06/2025 09:14 AM 347 mg/dL N Blood chemistry[[id number]] Glucose [Mass/volume] in Serum or Plasma [2345-7] 01/05/2025 01:50 PM 218 mg/dL N Blood chemistry[[id number]] Glucose [Mass/volume] in Serum or Plasma [2345-7] 01/05/2025 02:58 PM 126 mg/dL N Blood chemistry[[id number]] Glucose [Mass/volume] in Serum or Plasma [2345-7] 01/04/2025 05:04 PM 268 mg/dL N Blood chemistry[[id number]] Glucose [Mass/volume] in Serum or Plasma [2345-7] 01/04/2025 01:52 PM 156 mg/dL N Blood chemistry[[id number]] Glucose [Mass/volume] in Serum or Plasma [2345-7] 01/04/2025 01:32 PM 175 mg/dL N Blood chemistry[[id number]] Glucose [Mass/volume] in Serum or Plasma [2345-7] 01/04/2025 10:52 AM 139 mg/dL N Blood chemistry[[id number]] Glucose [Mass/volume] in Serum or Plasma [2345-7] 01/03/2025 01:36 PM 236 mg/dL N Blood chemistry[[id number]] Glucose [Mass/volume] in Serum or Plasma [2345-7] 01/03/2025 09:57 AM 334 mg/dL N Blood chemistry[[id number]] Glucose [Mass/volume] in Serum or Plasma [2345-7] 01/03/2025 05:04 PM 139 mg/dL N Blood chemistry[[id number]] Glucose [Mass/volume] in Serum or Plasma [2345-7] 01/03/2025 03:45 PM 234 mg/dL N Blood chemistry[[id number]] Glucose [Mass/volume] in Serum or Plasma [2345-7] 01/03/2025 01:27 PM 234 mg/dL N Blood chemistry[[id number]] Glucose [Mass/volume] in Serum or Plasma [2345-7] 01/02/2025 05:40 PM 276 mg/dL N Blood chemistry[[id number]] Glucose [Mass/volume] in Serum or Plasma [2345-7] 01/02/2025 01:09 PM 134 mg/dL N Blood chemistry[[id number]] Glucose [Mass/volume] in Serum or Plasma [2345-7] 01/02/2025 01:02 PM 183 mg/dL N Blood chemistry[[id number]] Glucose [Mass/volume] in Serum or Plasma [2345-7] 01/02/2025 09:53 AM 157 mg/dL N Blood chemistry[[id number]] Glucose [Mass/volume] in Serum or Plasma [2345-7] 01/01/2025 05:21 PM 163 mg/dL N Blood chemistry[[id number]] Glucose [Mass/volume] in Serum or Plasma [2345-7] 01/01/2025 05:20 PM 316 mg/dL N Blood chemistry[[id number]] Glucose [Mass/volume] in Serum or Plasma [2345-7] 01/01/2025 12:20 PM 265 mg/dL N Blood chemistry[[id number]] Glucose [Mass/volume] in Serum or Plasma [2345-7] 01/01/2025 06:33 PM 240 mg/dL N Blood chemistry[[id number]] Glucose [Mass/volume] in Serum or Plasma [2345-7] 01/01/2025 02:00 PM 143 mg/dL N Blood chemistry[[id number]] Glucose [Mass/volume] in Serum or Plasma [2345-7] 12/31/2024 05:53 PM 233 mg/dL N Blood chemistry[[id number]] Glucose [Mass/volume] in Serum or Plasma [2345-7] 12/31/2024 02:57 PM 165 mg/dL N Blood chemistry[[id number]] Glucose [Mass/volume] in Serum or Plasma [2345-7] 12/31/2024 10:18 AM 212 mg/dL N Blood chemistry[[id number]] Glucose [Mass/volume] in Serum or Plasma [2345-7] 12/30/2024 04:02 PM 243 mg/dL N Blood chemistry[[id number]] Glucose [Mass/volume] in Serum or Plasma [2345-7] 12/30/2024 10:07 AM 290 mg/dL N Blood chemistry[[id number]] Glucose [Mass/volume] in Serum or Plasma [2345-7] 12/30/2024 06:32 PM 448 mg/dL N Blood chemistry[[id number]] Glucose [Mass/volume] in Serum or Plasma [2345-7] 12/30/2024 04:35 PM 286 mg/dL N Blood chemistry[[id number]] Glucose [Mass/volume] in Serum or Plasma [2345-7] 12/30/2024 02:00 PM 116 mg/dL N Blood chemistry[[id number]] Glucose [Mass/volume] in Serum or Plasma [2345-7] 12/29/2024 11:11 AM 302 mg/dL N Blood chemistry[[id number]] Glucose [Mass/volume] in Serum or Plasma [2345-7] 12/29/2024 06:57 PM 218 mg/dL N Blood chemistry[[id number]] Glucose [Mass/volume] in Serum or Plasma [2345-7] 12/29/2024 01:56 PM 123 mg/dL N Blood chemistry[[id number]] Glucose [Mass/volume] in Serum or Plasma [2345-7] 12/28/2024 01:47 PM 330 mg/dL N Blood chemistry[[id number]] Glucose [Mass/volume] in Serum or Plasma [2345-7] 12/28/2024 11:04 AM 321 mg/dL N Blood chemistry[[id number]] Glucose [Mass/volume] in Serum or Plasma [2345-7] 12/28/2024 09:50 AM 321 mg/dL N Blood chemistry[[id number]] Glucose [Mass/volume] in Serum or Plasma [2345-7] 12/28/2024 05:25 PM 317 mg/dL N Blood chemistry[[id number]] Glucose [Mass/volume] in Serum or Plasma [2345-7] 12/28/2024 01:31 PM 171 mg/dL N Blood chemistry[[id number]] Glucose [Mass/volume] in Serum or Plasma [2345-7] 12/27/2024 01:37 PM 295 mg/dL N Blood chemistry[[id number]] Glucose [Mass/volume] in Serum or Plasma [2345-7] 12/27/2024 10:54 AM 368 mg/dL N Blood chemistry[[id number]] Glucose [Mass/volume] in Serum or Plasma [2345-7] 12/27/2024 01:52 PM 82 mg/dL N Blood chemistry[[id number]] Glucose [Mass/volume] in Serum or Plasma [2345-7] 12/27/2024 07:00 AM 218 mg/dL N Blood chemistry[[id number]] Glucose [Mass/volume] in Serum or Plasma [2345-7] 12/26/2024 05:03 PM 322 mg/dL N Blood chemistry[[id number]] Glucose [Mass/volume] in Serum or Plasma [2345-7] 12/26/2024 02:04 PM 176 mg/dL N Blood chemistry[[id number]] Glucose [Mass/volume] in Serum or Plasma [2345-7] 12/26/2024 01:49 PM 194 mg/dL N Blood chemistry[[id number]] Glucose [Mass/volume] in Serum or Plasma [2345-7] 12/26/2024 10:56 AM 135 mg/dL N Blood chemistry[[id number]] Glucose [Mass/volume] in Serum or Plasma [2345-7] 12/25/2024 01:35 PM 184 mg/dL N Blood chemistry[[id number]] Glucose [Mass/volume] in Serum or Plasma [2345-7] 12/25/2024 10:10 AM 214 mg/dL N Blood chemistry[[id number]] Glucose [Mass/volume] in Serum or Plasma [2345-7] 12/25/2024 06:48 PM 339 mg/dL N Glucose [Mass/volume] in Serum or Plasma [2345-7] 12/25/2024 06:48 PM 339 mg/dL N Blood chemistry[[id number]] Glucose [Mass/volume] in Serum or Plasma [2345-7] 12/25/2024 03:08 PM 163 mg/dL N Blood chemistry[[id number]] Glucose [Mass/volume] in Serum or Plasma [2345-7] 12/25/2024 07:13 AM 339 mg/dL N Blood chemistry[[id number]] Glucose [Mass/volume] in Serum or Plasma [2345-7] 12/24/2024 06:29 PM 212 mg/dL N Blood chemistry[[id number]] Glucose [Mass/volume] in Serum or Plasma [2345-7] 12/24/2024 03:01 PM 136 mg/dL N Blood chemistry[[id number]] Glucose [Mass/volume] in Serum or Plasma [2345-7] 12/24/2024 01:07 PM 202 mg/dL N Blood chemistry[[id number]] Glucose [Mass/volume] in Serum or Plasma [2345-7] 12/24/2024 12:05 PM 212 mg/dL N Blood chemistry[[id number]] Glucose [Mass/volume] in Serum or Plasma [2345-7] 12/23/2024 01:51 PM 300 mg/dL N Blood chemistry[[id number]] Glucose [Mass/volume] in Serum or Plasma [2345-7] 12/23/2024 11:05 AM 278 mg/dL N Blood chemistry[[id number]] Glucose [Mass/volume] in Serum or Plasma [2345-7] 12/23/2024 02:02 PM 113 mg/dL N Blood chemistry[[id number]] Glucose [Mass/volume] in Serum or Plasma [2345-7] 12/23/2024 07:36 AM 337 mg/dL N Blood chemistry[[id number]] Glucose [Mass/volume] in Serum or Plasma [2345-7] 12/22/2024 06:01 PM 194 mg/dL N Blood chemistry[[id number]] Glucose [Mass/volume] in Serum or Plasma [2345-7] 12/22/2024 04:18 PM 179 mg/dL N Blood chemistry[[id number]] Glucose [Mass/volume] in Serum or Plasma [2345-7] 12/22/2024 01:21 PM 179 mg/dL N Blood chemistry[[id number]] Glucose [Mass/volume] in Serum or Plasma [2345-7] 12/22/2024 01:20 PM 239 mg/dL N Blood chemistry[[id number]] Glucose [Mass/volume] in Serum or Plasma [2345-7] 12/22/2024 11:36 AM 295 mg/dL N Blood chemistry[[id number]] Glucose [Mass/volume] in Serum or Plasma [2345-7] 12/21/2024 06:06 PM 217 mg/dL N Blood chemistry[[id number]] Glucose [Mass/volume] in Serum or Plasma [2345-7] 12/21/2024 03:27 PM 112 mg/dL N Blood chemistry[[id number]] Glucose [Mass/volume] in Serum or Plasma [2345-7] 12/21/2024 01:17 PM 288 mg/dL N Blood chemistry[[id number]] Glucose [Mass/volume] in Serum or Plasma [2345-7] 12/21/2024 10:38 AM 314 mg/dL N Blood chemistry[[id number]] Glucose [Mass/volume] in Serum or Plasma [2345-7] 12/21/2024 10:37 AM 217 mg/dL N Blood chemistry[[id number]] Glucose [Mass/volume] in Serum or Plasma [2345-7] 12/20/2024 05:06 PM 319 mg/dL N Blood chemistry[[id number]] Glucose [Mass/volume] in Serum or Plasma [2345-7] 12/20/2024 03:24 PM 152 mg/dL N Blood chemistry[[id number]] Glucose [Mass/volume] in Serum or Plasma [2345-7] 12/20/2024 01:18 PM 157 mg/dL N Blood chemistry[[id number]] Glucose [Mass/volume] in Serum or Plasma [2345-7] 12/20/2024 10:22 AM 323 mg/dL N Blood chemistry[[id number]] Glucose [Mass/volume] in Serum or Plasma [2345-7] 12/20/2024 10:16 AM 323 mg/dL N Blood chemistry[[id number]] Glucose [Mass/volume] in Serum or Plasma [2345-7] 12/19/2024 12:43 PM 264 mg/dL N Blood chemistry[[id number]] Glucose [Mass/volume] in Serum or Plasma [2345-7] 12/19/2024 05:03 PM 363 mg/dL N Blood chemistry[[id number]] Glucose [Mass/volume] in Serum or Plasma [2345-7] 12/19/2024 04:18 PM 363 mg/dL N Blood chemistry[[id number]] Glucose [Mass/volume] in Serum or Plasma [2345-7] 12/19/2024 12:39 PM 201 mg/dL N Blood chemistry[[id number]] Glucose [Mass/volume] in Serum or Plasma [2345-7] 12/19/2024 09:54 AM 227 mg/dL N Blood chemistry[[id number]] Glucose [Mass/volume] in Serum or Plasma [2345-7] 12/18/2024 02:50 PM 326 mg/dL N Blood chemistry[[id number]] Glucose [Mass/volume] in Serum or Plasma [2345-7] 12/18/2024 01:34 PM 180 mg/dL N Blood chemistry[[id number]] Glucose [Mass/volume] in Serum or Plasma [2345-7] 12/18/2024 10:10 AM 209 mg/dL N Blood chemistry[[id number]] Glucose [Mass/volume] in Serum or Plasma [2345-7] 12/18/2024 07:00 AM 314 mg/dL N Blood chemistry[[id number]] Glucose [Mass/volume] in Serum or Plasma [2345-7] 12/17/2024 01:49 PM 170 mg/dL N Blood chemistry[[id number]] Glucose [Mass/volume] in Serum or Plasma [2345-7] 12/17/2024 09:57 AM 288 mg/dL N Blood chemistry[[id number]] Glucose [Mass/volume] in Serum or Plasma [2345-7] 12/17/2024 05:14 PM 319 mg/dL N Blood chemistry[[id number]] Glucose [Mass/volume] in Serum or Plasma [2345-7] 12/17/2024 01:23 PM 310 mg/dL N Blood chemistry[[id number]] Glucose [Mass/volume] in Serum or Plasma [2345-7] 12/16/2024 02:17 PM 278 mg/dL N Blood chemistry[[id number]] Glucose [Mass/volume] in Serum or Plasma [2345-7] 12/16/2024 04:47 PM 298 mg/dL N Blood chemistry[[id number]] Glucose [Mass/volume] in Serum or Plasma [2345-7] 12/16/2024 01:01 PM 173 mg/dL N Blood chemistry[[id number]] Glucose [Mass/volume] in Serum or Plasma [2345-7] 12/16/2024 09:37 AM 223 mg/dL N Blood chemistry[[id number]] Glucose [Mass/volume] in Serum or Plasma [2345-7] 12/15/2024 02:57 PM 119 mg/dL N Blood chemistry[[id number]] Glucose [Mass/volume] in Serum or Plasma [2345-7] 12/15/2024 05:26 PM 268 mg/dL N Blood chemistry[[id number]] Glucose [Mass/volume] in Serum or Plasma [2345-7] 12/15/2024 01:15 PM 200 mg/dL N Blood chemistry[[id number]] Glucose [Mass/volume] in Serum or Plasma [2345-7] 12/15/2024 10:15 AM 257 mg/dL N Blood chemistry[[id number]] Glucose [Mass/volume] in Serum or Plasma [2345-7] 12/14/2024 12:50 PM 251 mg/dL N Blood chemistry[[id number]] Glucose [Mass/volume] in Serum or Plasma [2345-7] 12/14/2024 04:53 PM 237 mg/dL N Blood chemistry[[id number]] Glucose [Mass/volume] in Serum or Plasma [2345-7] 12/14/2024 01:50 PM 221 mg/dL N Blood chemistry[[id number]] Glucose [Mass/volume] in Serum or Plasma [2345-7] 12/14/2024 09:14 AM 308 mg/dL N Blood chemistry[[id number]] Glucose [Mass/volume] in Serum or Plasma [2345-7] 12/13/2024 01:22 PM 268 mg/dL N Blood chemistry[[id number]] Glucose [Mass/volume] in Serum or Plasma [2345-7] 12/13/2024 06:06 PM 306 mg/dL N Blood chemistry[[id number]] Glucose [Mass/volume] in Serum or Plasma [2345-7] 12/13/2024 02:04 PM 127 mg/dL N Blood chemistry[[id number]] Glucose [Mass/volume] in Serum or Plasma [2345-7] 12/12/2024 04:32 PM 248 mg/dL N Blood chemistry[[id number]] Glucose [Mass/volume] in Serum or Plasma [2345-7] 12/12/2024 02:02 PM 230 mg/dL N Blood chemistry[[id number]] Glucose [Mass/volume] in Serum or Plasma [2345-7] 12/12/2024 01:06 PM 188 mg/dL N Blood chemistry[[id number]] Glucose [Mass/volume] in Serum or Plasma [2345-7] 12/12/2024 09:29 AM 530 mg/dL N Blood chemistry[[id number]] Glucose [Mass/volume] in Serum or Plasma [2345-7] 12/11/2024 02:06 PM 310 mg/dL N Blood chemistry[[id number]] Glucose [Mass/volume] in Serum or Plasma [2345-7] 12/11/2024 10:06 AM 171 mg/dL N Blood chemistry[[id number]] Glucose [Mass/volume] in Serum or Plasma [2345-7] 12/11/2024 06:24 PM 277 mg/dL N Blood chemistry[[id number]] Glucose [Mass/volume] in Serum or Plasma [2345-7] 12/11/2024 04:44 PM 151 mg/dL N Blood chemistry[[id number]] Glucose [Mass/volume] in Serum or Plasma [2345-7] 12/10/2024 01:36 PM 252 mg/dL N Blood chemistry[[id number]] Glucose [Mass/volume] in Serum or Plasma [2345-7] 12/10/2024 10:10 AM 290 mg/dL N Blood chemistry[[id number]] Glucose [Mass/volume] in Serum or Plasma [2345-7] 12/10/2024 05:05 PM 197 mg/dL N Blood chemistry[[id number]] Glucose [Mass/volume] in Serum or Plasma [2345-7] 12/10/2024 01:23 PM 112 mg/dL N Blood chemistry[[id number]] Glucose [Mass/volume] in Serum or Plasma [2345-7] 12/09/2024 02:10 PM 237 mg/dL N Blood chemistry[[id number]] Glucose [Mass/volume] in Serum or Plasma [2345-7] 12/09/2024 01:02 PM 137 mg/dL N Blood chemistry[[id number]] Glucose [Mass/volume] in Serum or Plasma [2345-7] 12/09/2024 11:44 AM 179 mg/dL N Blood chemistry[[id number]] Glucose [Mass/volume] in Serum or Plasma [2345-7] 12/09/2024 10:17 AM 179 mg/dL N Blood chemistry[[id number]] Glucose [Mass/volume] in Serum or Plasma [2345-7] 12/09/2024 07:24 AM 234 mg/dL N Blood chemistry[[id number]] Glucose [Mass/volume] in Serum or Plasma [2345-7] 12/08/2024 12:44 PM 179 mg/dL N Blood chemistry[[id number]] Glucose [Mass/volume] in Serum or Plasma [2345-7] 12/08/2024 06:15 PM 283 mg/dL N Blood chemistry[[id number]] Glucose [Mass/volume] in Serum or Plasma [2345-7] 12/08/2024 05:57 PM 283 mg/dL N Glucose [Mass/volume] in Serum or Plasma [2345-7] 12/08/2024 05:57 PM 168 mg/dL N Blood chemistry[[id number]] Glucose [Mass/volume] in Serum or Plasma [2345-7] 12/08/2024 01:33 PM 168 mg/dL N Blood chemistry[[id number]] Glucose [Mass/volume] in Serum or Plasma [2345-7] 12/08/2024 11:00 AM 250 mg/dL N Blood chemistry[[id number]] Glucose [Mass/volume] in Serum or Plasma [2345-7] 12/07/2024 01:08 PM 171 mg/dL N Blood chemistry[[id number]] Glucose [Mass/volume] in Serum or Plasma [2345-7] 12/07/2024 11:47 AM 257 mg/dL N Blood chemistry[[id number]] Glucose [Mass/volume] in Serum or Plasma [2345-7] 12/07/2024 06:00 PM 300 mg/dL N Blood chemistry[[id number]] Glucose [Mass/volume] in Serum or Plasma [2345-7] 12/07/2024 04:17 PM 173 mg/dL N Blood chemistry[[id number]] Glucose [Mass/volume] in Serum or Plasma [2345-7] 12/06/2024 02:53 PM 120 mg/dL N Blood chemistry[[id number]] Glucose [Mass/volume] in Serum or Plasma [2345-7] 12/06/2024 01:42 PM 254 mg/dL N Blood chemistry[[id number]] Glucose [Mass/volume] in Serum or Plasma [2345-7] 12/06/2024 11:26 AM 145 mg/dL N Blood chemistry[[id number]] Glucose [Mass/volume] in Serum or Plasma [2345-7] 12/06/2024 07:03 AM 270 mg/dL N Blood chemistry[[id number]] Glucose [Mass/volume] in Serum or Plasma [2345-7] 12/05/2024 01:35 PM 196 mg/dL N Blood chemistry[[id number]] Glucose [Mass/volume] in Serum or Plasma [2345-7] 12/05/2024 06:06 PM 324 mg/dL N Blood chemistry[[id number]] Glucose [Mass/volume] in Serum or Plasma [2345-7] 12/05/2024 01:24 PM 183 mg/dL N Blood chemistry[[id number]] Glucose [Mass/volume] in Serum or Plasma [2345-7] 12/05/2024 11:37 AM 188 mg/dL N Blood chemistry[[id number]] Glucose [Mass/volume] in Serum or Plasma [2345-7] 12/04/2024 06:00 PM 272 mg/dL N Blood chemistry[[id number]] Glucose [Mass/volume] in Serum or Plasma [2345-7] 12/04/2024 03:01 PM 164 mg/dL N Blood chemistry[[id number]] Glucose [Mass/volume] in Serum or Plasma [2345-7] 12/04/2024 01:45 PM 123 mg/dL N Blood chemistry[[id number]] Glucose [Mass/volume] in Serum or Plasma [2345-7] 12/04/2024 10:14 AM 215 mg/dL N Blood chemistry[[id number]] Glucose [Mass/volume] in Serum or Plasma [2345-7] 12/04/2024 06:39 PM 66 mg/dL N Blood chemistry[[id number]] Glucose [Mass/volume] in Serum or Plasma [2345-7] 12/03/2024 09:59 AM 260 mg/dL N Glucose [Mass/volume] in Serum or Plasma [2345-7] 12/03/2024 09:59 AM 260 mg/dL N Blood chemistry[[id number]] Glucose [Mass/volume] in Serum or Plasma [2345-7] 12/03/2024 05:41 PM 233 mg/dL N Blood chemistry[[id number]] Glucose [Mass/volume] in Serum or Plasma [2345-7] 12/03/2024 03:03 PM 155 mg/dL N Blood chemistry[[id number]] Glucose [Mass/volume] in Serum or Plasma [2345-7] 12/02/2024 02:40 PM 236 mg/dL N Blood chemistry[[id number]] Glucose [Mass/volume] in Serum or Plasma [2345-7] 12/02/2024 05:24 PM 180 mg/dL N Blood chemistry[[id number]] Glucose [Mass/volume] in Serum or Plasma [2345-7] 12/02/2024 12:32 PM 126 mg/dL N Blood chemistry[[id number]] Glucose [Mass/volume] in Serum or Plasma [2345-7] 12/02/2024 10:31 AM 130 mg/dL N Blood chemistry[[id number]] Glucose [Mass/volume] in Serum or Plasma [2345-7] 12/01/2024 03:45 PM 159 mg/dL N Blood chemistry[[id number]] Glucose [Mass/volume] in Serum or Plasma [2345-7] 12/01/2024 05:33 PM 218 mg/dL N Blood chemistry[[id number]] Glucose [Mass/volume] in Serum or Plasma [2345-7] 12/01/2024 02:34 PM 124 mg/dL N Blood chemistry[[id number]] Glucose [Mass/volume] in Serum or Plasma [2345-7] 12/01/2024 10:12 AM 264 mg/dL N Blood chemistry[[id number]] Glucose [Mass/volume] in Serum or Plasma [2345-7] 11/30/2024 01:12 PM 226 mg/dL N Blood chemistry[[id number]] Glucose [Mass/volume] in Serum or Plasma [2345-7] 11/30/2024 05:14 PM 299 mg/dL N Blood chemistry[[id number]] Glucose [Mass/volume] in Serum or Plasma [2345-7] 11/30/2024 12:20 PM 144 mg/dL N Blood chemistry[[id number]] Glucose [Mass/volume] in Serum or Plasma [2345-7] 11/30/2024 10:25 AM 338 mg/dL N Blood chemistry[[id number]] Glucose [Mass/volume] in Serum or Plasma [2345-7] 11/29/2024 02:43 PM 157 mg/dL N Blood chemistry[[id number]] Glucose [Mass/volume] in Serum or Plasma [2345-7] 11/29/2024 06:32 PM 326 mg/dL N Blood chemistry[[id number]] Glucose [Mass/volume] in Serum or Plasma [2345-7] 11/29/2024 01:23 PM 141 mg/dL N Blood chemistry[[id number]] Glucose [Mass/volume] in Serum or Plasma [2345-7] 11/29/2024 09:33 AM 192 mg/dL N Blood chemistry[[id number]] Glucose [Mass/volume] in Serum or Plasma [2345-7] 11/28/2024 05:57 PM 207 mg/dL N Blood chemistry[[id number]] Glucose [Mass/volume] in Serum or Plasma [2345-7] 11/28/2024 03:20 PM 128 mg/dL N Blood chemistry[[id number]] Glucose [Mass/volume] in Serum or Plasma [2345-7] 11/28/2024 01:15 PM 237 mg/dL N Blood chemistry[[id number]] Glucose [Mass/volume] in Serum or Plasma [2345-7] 11/28/2024 10:49 AM 154 mg/dL N Blood chemistry[[id number]] Glucose [Mass/volume] in Serum or Plasma [2345-7] 11/27/2024 01:52 PM 226 mg/dL N Blood chemistry[[id number]] Glucose [Mass/volume] in Serum or Plasma [2345-7] 11/27/2024 10:58 AM 199 mg/dL N Blood chemistry[[id number]] Glucose [Mass/volume] in Serum or Plasma [2345-7] 11/27/2024 06:05 PM 296 mg/dL N Blood chemistry[[id number]] Glucose [Mass/volume] in Serum or Plasma [2345-7] 11/27/2024 01:07 PM 142 mg/dL N Blood chemistry[[id number]] Glucose [Mass/volume] in Serum or Plasma [2345-7] 11/26/2024 05:51 PM 276 mg/dL N Blood chemistry[[id number]] Glucose [Mass/volume] in Serum or Plasma [2345-7] 11/26/2024 03:22 PM 175 mg/dL N Blood chemistry[[id number]] Glucose [Mass/volume] in Serum or Plasma [2345-7] 11/26/2024 01:25 PM 360 mg/dL N Blood chemistry[[id number]] Glucose [Mass/volume] in Serum or Plasma [2345-7] 11/26/2024 12:30 PM 175 mg/dL N Blood chemistry[[id number]] Glucose [Mass/volume] in Serum or Plasma [2345-7] 11/26/2024 10:30 AM 360 mg/dL N Blood chemistry[[id number]] Glucose [Mass/volume] in Serum or Plasma [2345-7] 11/25/2024 04:55 PM 284 mg/dL N Blood chemistry[[id number]] Glucose [Mass/volume] in Serum or Plasma [2345-7] 11/25/2024 02:06 PM 289 mg/dL N Blood chemistry[[id number]] Glucose [Mass/volume] in Serum or Plasma [2345-7] 11/25/2024 12:36 PM 102 mg/dL N Blood chemistry[[id number]] Glucose [Mass/volume] in Serum or Plasma [2345-7] 11/25/2024 10:00 AM 178 mg/dL N Blood chemistry[[id number]] Glucose [Mass/volume] in Serum or Plasma [2345-7] 11/24/2024 01:11 PM 272 mg/dL N Blood chemistry[[id number]] Glucose [Mass/volume] in Serum or Plasma [2345-7] 11/24/2024 06:11 PM 194 mg/dL N Blood chemistry[[id number]] Glucose [Mass/volume] in Serum or Plasma [2345-7] 11/24/2024 03:25 PM 112 mg/dL N Glucose [Mass/volume] in Serum or Plasma [2345-7] 11/24/2024 03:25 PM 112 mg/dL N Blood chemistry[[id number]] Glucose [Mass/volume] in Serum or Plasma [2345-7] 11/24/2024 10:30 AM 221 mg/dL N Glucose [Mass/volume] in Serum or Plasma [2345-7] 11/24/2024 10:30 AM 221 mg/dL N Blood chemistry[[id number]] Glucose [Mass/volume] in Serum or Plasma [2345-7] 11/23/2024 01:44 PM 134 mg/dL N Blood chemistry[[id number]] Glucose [Mass/volume] in Serum or Plasma [2345-7] 11/23/2024 04:56 PM 301 mg/dL N Blood chemistry[[id number]] Glucose [Mass/volume] in Serum or Plasma [2345-7] 11/23/2024 01:33 PM 197 mg/dL N Blood chemistry[[id number]] Glucose [Mass/volume] in Serum or Plasma [2345-7] 11/23/2024 11:11 AM 165 mg/dL N Blood chemistry[[id number]] Glucose [Mass/volume] in Serum or Plasma [2345-7] 11/22/2024 01:41 PM 242 mg/dL N Blood chemistry[[id number]] Glucose [Mass/volume] in Serum or Plasma [2345-7] 11/22/2024 04:57 PM 299 mg/dL N Blood chemistry[[id number]] Glucose [Mass/volume] in Serum or Plasma [2345-7] 11/22/2024 01:08 PM 192 mg/dL N Blood chemistry[[id number]] Glucose [Mass/volume] in Serum or Plasma [2345-7] 11/22/2024 09:47 AM 212 mg/dL N Blood chemistry[[id number]] Glucose [Mass/volume] in Serum or Plasma [2345-7] 11/21/2024 12:50 PM 217 mg/dL N Blood chemistry[[id number]] Glucose [Mass/volume] in Serum or Plasma [2345-7] 11/21/2024 04:15 PM 272 mg/dL N Blood chemistry[[id number]] Glucose [Mass/volume] in Serum or Plasma [2345-7] 11/21/2024 04:00 PM 272 mg/dL N Blood chemistry[[id number]] Glucose [Mass/volume] in Serum or Plasma [2345-7] 11/21/2024 12:43 PM 190 mg/dL N Blood chemistry[[id number]] Glucose [Mass/volume] in Serum or Plasma [2345-7] 11/21/2024 09:43 AM 212 mg/dL N Blood chemistry[[id number]] Glucose [Mass/volume] in Serum or Plasma [2345-7] 11/20/2024 05:43 PM 279 mg/dL N Blood chemistry[[id number]] Glucose [Mass/volume] in Serum or Plasma [2345-7] 11/20/2024 04:08 PM 241 mg/dL N Blood chemistry[[id number]] Glucose [Mass/volume] in Serum or Plasma [2345-7] 11/20/2024 01:37 PM 151 mg/dL N Blood chemistry[[id number]] Glucose [Mass/volume] in Serum or Plasma [2345-7] 11/20/2024 10:16 AM 149 mg/dL N Blood chemistry[[id number]] Glucose [Mass/volume] in Serum or Plasma [2345-7] 11/19/2024 04:42 PM 234 mg/dL N Blood chemistry[[id number]] Glucose [Mass/volume] in Serum or Plasma [2345-7] 11/19/2024 12:32 PM 247 mg/dL N Blood chemistry[[id number]] Glucose [Mass/volume] in Serum or Plasma [2345-7] 11/19/2024 05:24 PM 275 mg/dL N Blood chemistry[[id number]] Glucose [Mass/volume] in Serum or Plasma [2345-7] 11/19/2024 02:37 PM 148 mg/dL N Blood chemistry[[id number]] Glucose [Mass/volume] in Serum or Plasma [2345-7] 11/18/2024 03:55 PM 127 mg/dL N Blood chemistry[[id number]] Glucose [Mass/volume] in Serum or Plasma [2345-7] 11/18/2024 05:35 PM 246 mg/dL N Blood chemistry[[id number]] Glucose [Mass/volume] in Serum or Plasma [2345-7] 11/18/2024 01:43 PM 167 mg/dL N Blood chemistry[[id number]] Glucose [Mass/volume] in Serum or Plasma [2345-7] 11/18/2024 10:09 AM 197 mg/dL N Blood chemistry[[id number]] Glucose [Mass/volume] in Serum or Plasma [2345-7] 11/17/2024 01:58 PM 255 mg/dL N Blood chemistry[[id number]] Glucose [Mass/volume] in Serum or Plasma [2345-7] 11/17/2024 05:52 PM 297 mg/dL N Blood chemistry[[id number]] Glucose [Mass/volume] in Serum or Plasma [2345-7] 11/17/2024 01:02 PM 96 mg/dL N Blood chemistry[[id number]] Glucose [Mass/volume] in Serum or Plasma [2345-7] 11/17/2024 12:27 PM 187 mg/dL N Blood chemistry[[id number]] Glucose [Mass/volume] in Serum or Plasma [2345-7] 11/16/2024 01:36 PM 209 mg/dL N Blood chemistry[[id number]] Glucose [Mass/volume] in Serum or Plasma [2345-7] 11/16/2024 05:15 PM 311 mg/dL N Blood chemistry[[id number]] Glucose [Mass/volume] in Serum or Plasma [2345-7] 11/16/2024 12:16 PM 187 mg/dL N Blood chemistry[[id number]] Glucose [Mass/volume] in Serum or Plasma [2345-7] 11/16/2024 10:11 AM 223 mg/dL N Blood chemistry[[id number]] Glucose [Mass/volume] in Serum or Plasma [2345-7] 11/15/2024 05:26 PM 266 mg/dL N Blood chemistry[[id number]] Glucose [Mass/volume] in Serum or Plasma [2345-7] 11/15/2024 01:30 PM 207 mg/dL N Blood chemistry[[id number]] Glucose [Mass/volume] in Serum or Plasma [2345-7] 11/15/2024 01:11 PM 256 mg/dL N Blood chemistry[[id number]] Glucose [Mass/volume] in Serum or Plasma [2345-7] 11/15/2024 09:22 AM 222 mg/dL N Blood chemistry[[id number]] Glucose [Mass/volume] in Serum or Plasma [2345-7] 11/14/2024 12:31 PM 105 mg/dL N Blood chemistry[[id number]] Glucose [Mass/volume] in Serum or Plasma [2345-7] 11/14/2024 06:27 PM 274 mg/dL N Blood chemistry[[id number]] Glucose [Mass/volume] in Serum or Plasma [2345-7] 11/14/2024 02:04 PM 184 mg/dL N Blood chemistry[[id number]] Glucose [Mass/volume] in Serum or Plasma [2345-7] 11/14/2024 10:33 AM 162 mg/dL N Blood chemistry[[id number]] Glucose [Mass/volume] in Serum or Plasma [2345-7] 11/13/2024 04:36 PM 231 mg/dL N Blood chemistry[[id number]] Glucose [Mass/volume] in Serum or Plasma [2345-7] 11/13/2024 04:01 PM 184 mg/dL N Blood chemistry[[id number]] Glucose [Mass/volume] in Serum or Plasma [2345-7] 11/13/2024 01:38 PM 141 mg/dL N Blood chemistry[[id number]] Glucose [Mass/volume] in Serum or Plasma [2345-7] 11/13/2024 12:51 PM 147 mg/dL N Blood chemistry[[id number]] Glucose [Mass/volume] in Serum or Plasma [2345-7] 11/13/2024 10:15 AM 213 mg/dL N Blood chemistry[[id number]] Glucose [Mass/volume] in Serum or Plasma [2345-7] 11/12/2024 03:24 PM 93 mg/dL N Blood chemistry[[id number]] Glucose [Mass/volume] in Serum or Plasma [2345-7] 11/12/2024 12:18 PM 172 mg/dL N Blood chemistry[[id number]] Glucose [Mass/volume] in Serum or Plasma [2345-7] 11/12/2024 05:35 PM 188 mg/dL N Blood chemistry[[id number]] Glucose [Mass/volume] in Serum or Plasma [2345-7] 11/12/2024 02:41 PM 134 mg/dL N Blood chemistry[[id number]] Glucose [Mass/volume] in Serum or Plasma [2345-7] 11/11/2024 02:59 PM 172 mg/dL N Blood chemistry[[id number]] Glucose [Mass/volume] in Serum or Plasma [2345-7] 11/11/2024 04:21 PM 208 mg/dL N Blood chemistry[[id number]] Glucose [Mass/volume] in Serum or Plasma [2345-7] 11/11/2024 01:03 PM 120 mg/dL N Blood chemistry[[id number]] Glucose [Mass/volume] in Serum or Plasma [2345-7] 11/11/2024 01:02 PM 120 mg/dL N Blood chemistry[[id number]] Glucose [Mass/volume] in Serum or Plasma [2345-7] 11/11/2024 09:23 AM 279 mg/dL N Blood chemistry[[id number]] Glucose [Mass/volume] in Serum or Plasma [2345-7] 11/10/2024 04:40 PM 373 mg/dL N Blood chemistry[[id number]] Glucose [Mass/volume] in Serum or Plasma [2345-7] 11/10/2024 01:42 PM 129 mg/dL N Blood chemistry[[id number]] Glucose [Mass/volume] in Serum or Plasma [2345-7] 11/10/2024 01:20 PM 192 mg/dL N Blood chemistry[[id number]] Glucose [Mass/volume] in Serum or Plasma [2345-7] 11/10/2024 10:19 AM 279 mg/dL N Blood chemistry[[id number]] Glucose [Mass/volume] in Serum or Plasma [2345-7] 11/09/2024 01:10 PM 139 mg/dL N Blood chemistry[[id number]] Glucose [Mass/volume] in Serum or Plasma [2345-7] 11/09/2024 05:07 PM 500 mg/dL N Blood chemistry[[id number]] Glucose [Mass/volume] in Serum or Plasma [2345-7] 11/09/2024 01:36 PM 199 mg/dL N Blood chemistry[[id number]] Glucose [Mass/volume] in Serum or Plasma [2345-7] 11/09/2024 09:49 AM 234 mg/dL N Blood chemistry[[id number]] Glucose [Mass/volume] in Serum or Plasma [2345-7] 11/08/2024 01:39 PM 192 mg/dL N Blood chemistry[[id number]] Glucose [Mass/volume] in Serum or Plasma [2345-7] 11/08/2024 06:00 PM 250 mg/dL N Blood chemistry[[id number]] Glucose [Mass/volume] in Serum or Plasma [2345-7] 11/08/2024 04:08 PM 250 mg/dL N Blood chemistry[[id number]] Glucose [Mass/volume] in Serum or Plasma [2345-7] 11/08/2024 01:07 PM 186 mg/dL N Blood chemistry[[id number]] Glucose [Mass/volume] in Serum or Plasma [2345-7] 11/08/2024 09:38 AM 248 mg/dL N Blood chemistry[[id number]] Glucose [Mass/volume] in Serum or Plasma [2345-7] 11/07/2024 01:26 PM 283 mg/dL N Blood chemistry[[id number]] Glucose [Mass/volume] in Serum or Plasma [2345-7] 11/07/2024 05:37 PM 235 mg/dL N Blood chemistry[[id number]] Glucose [Mass/volume] in Serum or Plasma [2345-7] 11/07/2024 02:58 PM 181 mg/dL N Blood chemistry[[id number]] Glucose [Mass/volume] in Serum or Plasma [2345-7] 11/07/2024 10:57 AM 187 mg/dL N Blood chemistry[[id number]] Glucose [Mass/volume] in Serum or Plasma [2345-7] 11/06/2024 05:13 PM 237 mg/dL N Blood chemistry[[id number]] Glucose [Mass/volume] in Serum or Plasma [2345-7] 11/06/2024 01:55 PM 192 mg/dL N Blood chemistry[[id number]] Glucose [Mass/volume] in Serum or Plasma [2345-7] 11/06/2024 01:20 PM 147 mg/dL N Blood chemistry[[id number]] Glucose [Mass/volume] in Serum or Plasma [2345-7] 11/06/2024 10:04 AM 203 mg/dL N Glucose [Mass/volume] in Serum or Plasma [2345-7] 11/06/2024 10:04 AM 203 mg/dL N Blood chemistry[[id number]] Glucose [Mass/volume] in Serum or Plasma [2345-7] 11/05/2024 02:05 PM 185 mg/dL N Blood chemistry[[id number]] Glucose [Mass/volume] in Serum or Plasma [2345-7] 11/05/2024 11:53 AM 205 mg/dL N Blood chemistry[[id number]] Glucose [Mass/volume] in Serum or Plasma [2345-7] 11/05/2024 04:56 PM 226 mg/dL N Glucose [Mass/volume] in Serum or Plasma [2345-7] 11/05/2024 04:56 PM 226 mg/dL N Blood chemistry[[id number]] Glucose [Mass/volume] in Serum or Plasma [2345-7] 11/05/2024 01:29 PM 174 mg/dL N Blood chemistry[[id number]] Glucose [Mass/volume] in Serum or Plasma [2345-7] 11/04/2024 05:20 PM 114 mg/dL N Blood chemistry[[id number]] Glucose [Mass/volume] in Serum or Plasma [2345-7] 11/04/2024 05:08 PM 289 mg/dL N Blood chemistry[[id number]] Glucose [Mass/volume] in Serum or Plasma [2345-7] 11/04/2024 01:18 PM 159 mg/dL N Blood chemistry[[id number]] Glucose [Mass/volume] in Serum or Plasma [2345-7] 11/04/2024 12:26 PM 159 mg/dL N Blood chemistry[[id number]] Glucose [Mass/volume] in Serum or Plasma [2345-7] 11/04/2024 10:22 AM 149 mg/dL N Blood chemistry[[id number]] Glucose [Mass/volume] in Serum or Plasma [2345-7] 11/03/2024 04:58 PM 253 mg/dL N Blood chemistry[[id number]] Glucose [Mass/volume] in Serum or Plasma [2345-7] 11/03/2024 03:19 PM 173 mg/dL N Blood chemistry[[id number]] Glucose [Mass/volume] in Serum or Plasma [2345-7] 11/03/2024 02:03 PM 229 mg/dL N Blood chemistry[[id number]] Glucose [Mass/volume] in Serum or Plasma [2345-7] 11/03/2024 01:30 PM 173 mg/dL N Blood chemistry[[id number]] Glucose [Mass/volume] in Serum or Plasma [2345-7] 11/03/2024 10:16 AM 256 mg/dL N Blood chemistry[[id number]] Glucose [Mass/volume] in Serum or Plasma [2345-7] 11/02/2024 03:49 PM 216 mg/dL N Blood chemistry[[id number]] Glucose [Mass/volume] in Serum or Plasma [2345-7] 11/02/2024 10:39 AM 253 mg/dL N Blood chemistry[[id number]] Glucose [Mass/volume] in Serum or Plasma [2345-7] 11/02/2024 05:42 PM 294 mg/dL N Blood chemistry[[id number]] Glucose [Mass/volume] in Serum or Plasma [2345-7] 11/02/2024 01:18 PM 133 mg/dL N Blood chemistry[[id number]] Glucose [Mass/volume] in Serum or Plasma [2345-7] 11/01/2024 02:45 PM 161 mg/dL N Blood chemistry[[id number]] Glucose [Mass/volume] in Serum or Plasma [2345-7] 11/01/2024 05:29 PM 305 mg/dL N Blood chemistry[[id number]] Glucose [Mass/volume] in Serum or Plasma [2345-7] 11/01/2024 03:17 PM 144 mg/dL N Blood chemistry[[id number]] Glucose [Mass/volume] in Serum or Plasma [2345-7] 11/01/2024 10:32 AM 281 mg/dL N Blood chemistry[[id number]] Glucose [Mass/volume] in Serum or Plasma [2345-7] 10/31/2024 02:03 PM 231 mg/dL N Blood chemistry[[id number]] Glucose [Mass/volume] in Serum or Plasma [2345-7] 10/31/2024 04:19 PM 207 mg/dL N Blood chemistry[[id number]] Glucose [Mass/volume] in Serum or Plasma [2345-7] 10/31/2024 01:30 PM 161 mg/dL N Blood chemistry[[id number]] Glucose [Mass/volume] in Serum or Plasma [2345-7] 10/31/2024 09:54 AM 337 mg/dL N Glucose [Mass/volume] in Serum or Plasma [2345-7] 10/31/2024 09:54 AM 337 mg/dL N Blood chemistry[[id number]] Glucose [Mass/volume] in Serum or Plasma [2345-7] 10/30/2024 05:27 PM 268 mg/dL N Blood chemistry[[id number]] Glucose [Mass/volume] in Serum or Plasma [2345-7] 10/30/2024 04:23 PM 193 mg/dL N Blood chemistry[[id number]] Glucose [Mass/volume] in Serum or Plasma [2345-7] 10/30/2024 02:17 PM 132 mg/dL N Blood chemistry[[id number]] Glucose [Mass/volume] in Serum or Plasma [2345-7] 10/30/2024 10:20 AM 126 mg/dL N Blood chemistry[[id number]] Glucose [Mass/volume] in Serum or Plasma [2345-7] 10/29/2024 01:38 PM 110 mg/dL N Blood chemistry[[id number]] Glucose [Mass/volume] in Serum or Plasma [2345-7] 10/29/2024 10:37 AM 197 mg/dL N Blood chemistry[[id number]] Glucose [Mass/volume] in Serum or Plasma [2345-7] 10/29/2024 06:26 PM 250 mg/dL N Blood chemistry[[id number]] Glucose [Mass/volume] in Serum or Plasma [2345-7] 10/29/2024 03:09 PM 106 mg/dL N Blood chemistry[[id number]] Glucose [Mass/volume] in Serum or Plasma [2345-7] 10/28/2024 05:26 PM 206 mg/dL N Blood chemistry[[id number]] Glucose [Mass/volume] in Serum or Plasma [2345-7] 10/28/2024 02:32 PM 153 mg/dL N Blood chemistry[[id number]] Glucose [Mass/volume] in Serum or Plasma [2345-7] 10/28/2024 01:23 PM 108 mg/dL N Blood chemistry[[id number]] Glucose [Mass/volume] in Serum or Plasma [2345-7] 10/28/2024 10:11 AM 315 mg/dL N Blood chemistry[[id number]] Glucose [Mass/volume] in Serum or Plasma [2345-7] 10/27/2024 04:39 PM 217 mg/dL N Blood chemistry[[id number]] Glucose [Mass/volume] in Serum or Plasma [2345-7] 10/27/2024 02:11 PM 187 mg/dL N Blood chemistry[[id number]] Glucose [Mass/volume] in Serum or Plasma [2345-7] 10/27/2024 09:35 AM 328 mg/dL N Blood chemistry[[id number]] Glucose [Mass/volume] in Serum or Plasma [2345-7] 10/27/2024 01:17 PM 134 mg/dL N Blood chemistry[[id number]] Glucose [Mass/volume] in Serum or Plasma [2345-7] 10/26/2024 01:31 PM 167 mg/dL N Blood chemistry[[id number]] Glucose [Mass/volume] in Serum or Plasma [2345-7] 10/26/2024 10:33 AM 401 mg/dL N Glucose [Mass/volume] in Serum or Plasma [2345-7] 10/26/2024 10:33 AM 401 mg/dL N Blood chemistry[[id number]] Glucose [Mass/volume] in Serum or Plasma [2345-7] 10/26/2024 07:28 AM 396 mg/dL N Glucose [Mass/volume] in Serum or Plasma [2345-7] 10/26/2024 07:28 AM 396 mg/dL N Glucose [Mass/volume] in Serum or Plasma [2345-7] 10/26/2024 07:28 AM 396 mg/dL N Blood chemistry[[id number]] Glucose [Mass/volume] in Serum or Plasma [2345-7] 10/26/2024 07:27 AM 111 mg/dL N Blood chemistry[] Glucose [Mass/volume] in Serum or Plasma [2345-7] 10/25/2024 04:41 PM 178 mg/dL N Blood chemistry[[id number]] Glucose [Mass/volume] in Serum or Plasma [2345-7] 10/25/2024 01:39 PM 306 mg/dL N Blood chemistry[] Glucose [Mass/volume] in Serum or Plasma [2345-7] 10/25/2024 10:19 AM 223 mg/dL N Blood chemistry[] Glucose [Mass/volume] in Serum or Plasma [2345-7] 10/25/2024 01:35 PM 119 mg/dL N Blood chemistry[[id number]] Glucose [Mass/volume] in Serum or Plasma [2345-7] 10/24/2024 05:11 PM 235 mg/dL N Blood chemistry[[id number]] Glucose [Mass/volume] in Serum or Plasma [2345-7] 10/24/2024 02:24 PM 162 mg/dL N Blood chemistry[[id number]] Glucose [Mass/volume] in Serum or Plasma [2345-7] 10/24/2024 12:40 PM 154 mg/dL N Glucose [Mass/volume] in Serum or Plasma [2345-7] 10/24/2024 12:40 PM 154 mg/dL N Blood chemistry[[id number]] Glucose [Mass/volume] in Serum or Plasma [2345-7] 10/24/2024 10:32 AM 203 mg/dL N Blood chemistry[[id number]] Glucose [Mass/volume] in Serum or Plasma [2345-7] 10/23/2024 02:05 PM 197 mg/dL N Blood chemistry[[id number]] Glucose [Mass/volume] in Serum or Plasma [2345-7] 10/23/2024 10:08 AM 153 mg/dL N Blood chemistry[[id number]] Glucose [Mass/volume] in Serum or Plasma [2345-7] 10/23/2024 05:30 PM 199 mg/dL N Blood chemistry[[id number]] Glucose [Mass/volume] in Serum or Plasma [2345-7] 10/23/2024 05:25 PM 154 mg/dL N Blood chemistry[[id number]] Glucose [Mass/volume] in Serum or Plasma [2345-7] 10/22/2024 01:58 PM 173 mg/dL N Blood chemistry[[id number]] Glucose [Mass/volume] in Serum or Plasma [2345-7] 10/22/2024 10:16 AM 110 mg/dL N Blood chemistry[[id number]] Glucose [Mass/volume] in Serum or Plasma [2345-7] 10/22/2024 05:40 PM 230 mg/dL N Blood chemistry[[id number]] Glucose [Mass/volume] in Serum or Plasma [2345-7] 10/22/2024 03:26 PM 158 mg/dL N Blood chemistry[[id number]] Glucose [Mass/volume] in Serum or Plasma [2345-7] 10/21/2024 01:52 PM 156 mg/dL N Blood chemistry[[id number]] Glucose [Mass/volume] in Serum or Plasma [2345-7] 10/21/2024 05:00 PM 243 mg/dL N Blood chemistry[[id number]] Glucose [Mass/volume] in Serum or Plasma [2345-7] 10/21/2024 12:24 PM 103 mg/dL N Blood chemistry[[id number]] Glucose [Mass/volume] in Serum or Plasma [2345-7] 10/21/2024 10:41 AM 174 mg/dL N Blood chemistry[[id number]] Glucose [Mass/volume] in Serum or Plasma [2345-7] 10/20/2024 04:37 PM 204 mg/dL N Blood chemistry[[id number]] Glucose [Mass/volume] in Serum or Plasma [2345-7] 10/20/2024 02:23 PM 146 mg/dL N Blood chemistry[[id number]] Glucose [Mass/volume] in Serum or Plasma [2345-7] 10/20/2024 10:03 AM 222 mg/dL N Blood chemistry[[id number]] Glucose [Mass/volume] in Serum or Plasma [2345-7] 10/20/2024 12:31 PM 121 mg/dL N Blood chemistry[[id number]] Glucose [Mass/volume] in Serum or Plasma [2345-7] 10/19/2024 01:11 PM 241 mg/dL N Blood chemistry[[id number]] Glucose [Mass/volume] in Serum or Plasma [2345-7] 10/19/2024 04:59 PM 217 mg/dL N Blood chemistry[[id number]] Glucose [Mass/volume] in Serum or Plasma [2345-7] 10/19/2024 02:13 PM 122 mg/dL N Blood chemistry[[id number]] Glucose [Mass/volume] in Serum or Plasma [2345-7] 10/19/2024 09:02 AM 165 mg/dL N Blood chemistry[[id number]] Glucose [Mass/volume] in Serum or Plasma [2345-7] 10/18/2024 04:38 PM 247 mg/dL N Blood chemistry[] Glucose [Mass/volume] in Serum or Plasma [2345-7] 10/18/2024 01:21 PM 132 mg/dL N Glucose [Mass/volume] in Serum or Plasma [2345-7] 10/18/2024 01:21 PM 132 mg/dL N Blood chemistry[] Glucose [Mass/volume] in Serum or Plasma [2345-7] 10/18/2024 01:20 PM 169 mg/dL N Glucose [Mass/volume] in Serum or Plasma [2345-7] 10/18/2024 01:20 PM 132 mg/dL N Blood chemistry[] Glucose [Mass/volume] in Serum or Plasma [2345-7] 10/18/2024 09:59 AM 153 mg/dL N Blood chemistry[] Glucose [Mass/volume] in Serum or Plasma [2345-7] 10/17/2024 04:10 PM 184 mg/dL N Blood chemistry[[id number]] Glucose [Mass/volume] in Serum or Plasma [2345-7] 10/17/2024 03:24 PM 252 mg/dL N Blood chemistry[[id number]] Glucose [Mass/volume] in Serum or Plasma [2345-7] 10/17/2024 01:57 PM 121 mg/dL N Blood chemistry[[id number]] Glucose [Mass/volume] in Serum or Plasma [2345-7] 10/17/2024 09:39 AM 201 mg/dL N Blood chemistry[[id number]] Glucose [Mass/volume] in Serum or Plasma [2345-7] 10/16/2024 05:30 PM 170 mg/dL N Blood chemistry[[id number]] Glucose [Mass/volume] in Serum or Plasma [2345-7] 10/16/2024 02:39 PM 239 mg/dL N Blood chemistry[[id number]] Glucose [Mass/volume] in Serum or Plasma [2345-7] 10/16/2024 01:59 PM 193 mg/dL N Blood chemistry[] Glucose [Mass/volume] in Serum or Plasma [2345-7] 10/16/2024 01:48 PM 239 mg/dL N Blood chemistry[[id number]] Glucose [Mass/volume] in Serum or Plasma [2345-7] 10/16/2024 12:50 PM 190 mg/dL N Blood chemistry[[id number]] Glucose [Mass/volume] in Serum or Plasma [2345-7] 10/16/2024 10:22 AM 190 mg/dL N Blood chemistry[[id number]] Glucose [Mass/volume] in Serum or Plasma [2345-7] 10/15/2024 06:09 PM 314 mg/dL N Blood chemistry[[id number]] Glucose [Mass/volume] in Serum or Plasma [2345-7] 10/15/2024 02:59 PM 93 mg/dL N Blood chemistry[[id number]] Glucose [Mass/volume] in Serum or Plasma [2345-7] 10/15/2024 01:54 PM 141 mg/dL N Blood chemistry[[id number]] Glucose [Mass/volume] in Serum or Plasma [2345-7] 10/15/2024 01:24 PM 134 mg/dL N Blood chemistry[[id number]] Glucose [Mass/volume] in Serum or Plasma [2345-7] 10/15/2024 10:01 AM 134 mg/dL N Blood chemistry[[id number]] Glucose [Mass/volume] in Serum or Plasma [2345-7] 10/14/2024 05:33 PM 177 mg/dL N Blood chemistry[[id number]] Glucose [Mass/volume] in Serum or Plasma [2345-7] 10/14/2024 04:14 PM 152 mg/dL N Blood chemistry[[id number]] Glucose [Mass/volume] in Serum or Plasma [2345-7] 10/14/2024 01:19 PM 101 mg/dL N Blood chemistry[[id number]] Glucose [Mass/volume] in Serum or Plasma [2345-7] 10/14/2024 09:47 AM 220 mg/dL N Blood chemistry[[id number]] Glucose [Mass/volume] in Serum or Plasma [2345-7] 10/13/2024 04:56 PM 194 mg/dL N Blood chemistry[[id number]] Glucose [Mass/volume] in Serum or Plasma [2345-7] 10/13/2024 03:08 PM 193 mg/dL N Blood chemistry[[id number]] Glucose [Mass/volume] in Serum or Plasma [2345-7] 10/13/2024 01:47 PM 114 mg/dL N Blood chemistry[[id number]] Glucose [Mass/volume] in Serum or Plasma [2345-7] 10/13/2024 10:29 AM 219 mg/dL N Blood chemistry[[id number]] Glucose [Mass/volume] in Serum or Plasma [2345-7] 10/12/2024 04:40 PM 175 mg/dL N Blood chemistry[[id number]] Glucose [Mass/volume] in Serum or Plasma [2345-7] 10/12/2024 01:34 PM 306 mg/dL N Blood chemistry[[id number]] Glucose [Mass/volume] in Serum or Plasma [2345-7] 10/12/2024 01:20 PM 78 mg/dL N Blood chemistry[[id number]] Glucose [Mass/volume] in Serum or Plasma [2345-7] 10/12/2024 10:00 AM 188 mg/dL N Blood chemistry[[id number]] Glucose [Mass/volume] in Serum or Plasma [2345-7] 10/11/2024 04:15 PM 239 mg/dL N Blood chemistry[[id number]] Glucose [Mass/volume] in Serum or Plasma [2345-7] 10/11/2024 01:35 PM 175 mg/dL N Glucose [Mass/volume] in Serum or Plasma [2345-7] 10/11/2024 01:35 PM 116 mg/dL N Blood chemistry[[id number]] Glucose [Mass/volume] in Serum or Plasma [2345-7] 10/11/2024 09:51 AM 189 mg/dL N Blood chemistry[[id number]] Glucose [Mass/volume] in Serum or Plasma [2345-7] 10/10/2024 04:50 PM 162 mg/dL N Blood chemistry[[id number]] Glucose [Mass/volume] in Serum or Plasma [2345-7] 10/10/2024 04:49 PM 162 mg/dL N Blood chemistry[[id number]] Glucose [Mass/volume] in Serum or Plasma [2345-7] 10/10/2024 01:03 PM 135 mg/dL N Blood chemistry[[id number]] Glucose [Mass/volume] in Serum or Plasma [2345-7] 10/10/2024 12:43 PM 117 mg/dL N Blood chemistry[[id number]] Glucose [Mass/volume] in Serum or Plasma [2345-7] 10/10/2024 09:57 AM 231 mg/dL N Blood chemistry[[id number]] Glucose [Mass/volume] in Serum or Plasma [2345-7] 10/09/2024 05:12 PM 217 mg/dL N Blood chemistry[[id number]] Glucose [Mass/volume] in Serum or Plasma [2345-7] 10/09/2024 04:01 PM 228 mg/dL N Blood chemistry[[id number]] Glucose [Mass/volume] in Serum or Plasma [2345-7] 10/09/2024 02:55 PM 123 mg/dL N Blood chemistry[[id number]] Glucose [Mass/volume] in Serum or Plasma [2345-7] 10/09/2024 10:29 AM 107 mg/dL N Blood chemistry[[id number]] Glucose [Mass/volume] in Serum or Plasma [2345-7] 10/08/2024 05:38 PM 156 mg/dL N Blood chemistry[[id number]] Glucose [Mass/volume] in Serum or Plasma [2345-7] 10/08/2024 03:25 PM 193 mg/dL N Blood chemistry[[id number]] Glucose [Mass/volume] in Serum or Plasma [2345-7] 10/08/2024 01:26 PM 107 mg/dL N Blood chemistry[[id number]] Glucose [Mass/volume] in Serum or Plasma [2345-7] 10/08/2024 10:55 AM 108 mg/dL N Blood chemistry[[id number]] Glucose [Mass/volume] in Serum or Plasma [2345-7] 10/07/2024 05:02 PM 116 mg/dL N Blood chemistry[[id number]] Glucose [Mass/volume] in Serum or Plasma [2345-7] 10/07/2024 04:29 PM 116 mg/dL N Blood chemistry[[id number]] Glucose [Mass/volume] in Serum or Plasma [2345-7] 10/07/2024 03:01 PM 299 mg/dL N Blood chemistry[[id number]] Glucose [Mass/volume] in Serum or Plasma [2345-7] 10/07/2024 12:36 PM 104 mg/dL N Blood chemistry[[id number]] Glucose [Mass/volume] in Serum or Plasma [2345-7] 10/07/2024 09:41 AM 140 mg/dL N Blood chemistry[[id number]] Glucose [Mass/volume] in Serum or Plasma [2345-7] 10/06/2024 04:26 PM 438 mg/dL N Blood chemistry[[id number]] Glucose [Mass/volume] in Serum or Plasma [2345-7] 10/06/2024 03:02 PM 238 mg/dL N Blood chemistry[[id number]] Glucose [Mass/volume] in Serum or Plasma [2345-7] 10/06/2024 01:37 PM 109 mg/dL N Blood chemistry[[id number]] Glucose [Mass/volume] in Serum or Plasma [2345-7] 10/06/2024 09:43 AM 77 mg/dL N Blood chemistry[[id number]] Glucose [Mass/volume] in Serum or Plasma [2345-7] 10/05/2024 04:43 PM 202 mg/dL N Blood chemistry[[id number]] Glucose [Mass/volume] in Serum or Plasma [2345-7] 10/05/2024 01:45 PM 159 mg/dL N Blood chemistry[[id number]] Glucose [Mass/volume] in Serum or Plasma [2345-7] 10/05/2024 12:27 PM 145 mg/dL N Blood chemistry[[id number]] Glucose [Mass/volume] in Serum or Plasma [2345-7] 10/05/2024 10:18 AM 232 mg/dL N Blood chemistry[[id number]] Glucose [Mass/volume] in Serum or Plasma [2345-7] 10/04/2024 05:01 PM 199 mg/dL N Blood chemistry[[id number]] Glucose [Mass/volume] in Serum or Plasma [2345-7] 10/04/2024 01:52 PM 112 mg/dL N Blood chemistry[[id number]] Glucose [Mass/volume] in Serum or Plasma [2345-7] 10/04/2024 01:33 PM 235 mg/dL N Blood chemistry[[id number]] Glucose [Mass/volume] in Serum or Plasma [2345-7] 10/04/2024 10:11 AM 297 mg/dL N Blood chemistry[[id number]] Glucose [Mass/volume] in Serum or Plasma [2345-7] 10/03/2024 04:43 PM 189 mg/dL N Blood chemistry[[id number]] Glucose [Mass/volume] in Serum or Plasma [2345-7] 10/03/2024 02:32 PM 195 mg/dL N Blood chemistry[[id number]] Glucose [Mass/volume] in Serum or Plasma [2345-7] 10/03/2024 01:18 PM 164 mg/dL N Blood chemistry[[id number]] Glucose [Mass/volume] in Serum or Plasma [2345-7] 10/03/2024 09:47 AM 160 mg/dL N Blood chemistry[[id number]] Glucose [Mass/volume] in Serum or Plasma [2345-7] 10/02/2024 06:23 PM 109 mg/dL N Blood chemistry[[id number]] Glucose [Mass/volume] in Serum or Plasma [2345-7] 10/02/2024 05:15 PM 239 mg/dL N Blood chemistry[[id number]] Glucose [Mass/volume] in Serum or Plasma [2345-7] 10/02/2024 05:07 PM 98 mg/dL N Blood chemistry[[id number]] Glucose [Mass/volume] in Serum or Plasma [2345-7] 10/02/2024 02:12 PM 129 mg/dL N Blood chemistry[[id number]] Glucose [Mass/volume] in Serum or Plasma [2345-7] 10/02/2024 12:21 PM 132 mg/dL N Blood chemistry[[id number]] Glucose [Mass/volume] in Serum or Plasma [2345-7] 10/02/2024 10:14 AM 132 mg/dL N Blood chemistry[[id number]] Glucose [Mass/volume] in Serum or Plasma [2345-7] 10/01/2024 05:11 PM 146 mg/dL N Blood chemistry[[id number]] Glucose [Mass/volume] in Serum or Plasma [2345-7] 10/01/2024 02:37 PM 100 mg/dL N Blood chemistry[[id number]] Glucose [Mass/volume] in Serum or Plasma [2345-7] 10/01/2024 10:27 AM 173 mg/dL N Blood chemistry[[id number]] Glucose [Mass/volume] in Serum or Plasma [2345-7] 09/30/2024 05:10 PM 206 mg/dL N Blood chemistry[[id number]] Glucose [Mass/volume] in Serum or Plasma [2345-7] 09/30/2024 05:03 PM 230 mg/dL N Blood chemistry[[id number]] Glucose [Mass/volume] in Serum or Plasma [2345-7] 09/30/2024 02:45 PM 66 mg/dL N Blood chemistry[[id number]] Glucose [Mass/volume] in Serum or Plasma [2345-7] 09/30/2024 10:13 AM 270 mg/dL N Blood chemistry[[id number]] Glucose [Mass/volume] in Serum or Plasma [2345-7] 09/29/2024 04:27 PM 154 mg/dL N Glucose [Mass/volume] in Serum or Plasma [2345-7] 09/29/2024 04:27 PM 154 mg/dL N Blood chemistry[[id number]] Glucose [Mass/volume] in Serum or Plasma [2345-7] 09/29/2024 02:15 PM 332 mg/dL N Blood chemistry[[id number]] Glucose [Mass/volume] in Serum or Plasma [2345-7] 09/29/2024 01:46 PM 280 mg/dL N Blood chemistry[[id number]] Glucose [Mass/volume] in Serum or Plasma [2345-7] 09/29/2024 09:49 AM 119 mg/dL N Blood chemistry[[id number]] Glucose [Mass/volume] in Serum or Plasma [2345-7] 09/28/2024 04:46 PM 199 mg/dL N Blood chemistry[[id number]] Glucose [Mass/volume] in Serum or Plasma [2345-7] 09/28/2024 04:33 PM 199 mg/dL N Blood chemistry[[id number]] Glucose [Mass/volume] in Serum or Plasma [2345-7] 09/28/2024 01:05 PM 114 mg/dL N Blood chemistry[[id number]] Glucose [Mass/volume] in Serum or Plasma [2345-7] 09/28/2024 01:04 PM 154 mg/dL N Blood chemistry[[id number]] Glucose [Mass/volume] in Serum or Plasma [2345-7] 09/28/2024 09:40 AM 196 mg/dL N Blood chemistry[[id number]] Glucose [Mass/volume] in Serum or Plasma [2345-7] 09/27/2024 04:32 PM 219 mg/dL N Blood chemistry[[id number]] Glucose [Mass/volume] in Serum or Plasma [2345-7] 09/27/2024 01:55 PM 173 mg/dL N Blood chemistry[[id number]] Glucose [Mass/volume] in Serum or Plasma [2345-7] 09/27/2024 01:48 PM 222 mg/dL N Blood chemistry[[id number]] Glucose [Mass/volume] in Serum or Plasma [2345-7] 09/27/2024 10:12 AM 178 mg/dL N Blood chemistry[[id number]] Glucose [Mass/volume] in Serum or Plasma [2345-7] 09/26/2024 04:42 PM 303 mg/dL N Blood chemistry[[id number]] Glucose [Mass/volume] in Serum or Plasma [2345-7] 09/26/2024 02:18 PM 170 mg/dL N Blood chemistry[[id number]] Glucose [Mass/volume] in Serum or Plasma [2345-7] 09/26/2024 12:31 PM 248 mg/dL N Blood chemistry[[id number]] Glucose [Mass/volume] in Serum or Plasma [2345-7] 09/26/2024 10:26 AM 216 mg/dL N Blood chemistry[[id number]] Glucose [Mass/volume] in Serum or Plasma [2345-7] 09/25/2024 06:13 PM 219 mg/dL N Blood chemistry[[id number]] Glucose [Mass/volume] in Serum or Plasma [2345-7] 09/25/2024 05:16 PM 219 mg/dL N Blood chemistry[[id number]] Glucose [Mass/volume] in Serum or Plasma [2345-7] 09/25/2024 01:52 PM 120 mg/dL N Blood chemistry[[id number]] Glucose [Mass/volume] in Serum or Plasma [2345-7] 09/25/2024 01:32 PM 117 mg/dL N Blood chemistry[[id number]] Glucose [Mass/volume] in Serum or Plasma [2345-7] 09/25/2024 10:01 AM 138 mg/dL N Blood chemistry[[id number]] Glucose [Mass/volume] in Serum or Plasma [2345-7] 09/24/2024 05:32 PM 252 mg/dL N Blood chemistry[[id number]] Glucose [Mass/volume] in Serum or Plasma [2345-7] 09/24/2024 02:22 PM 285 mg/dL N Blood chemistry[[id number]] Glucose [Mass/volume] in Serum or Plasma [2345-7] 09/24/2024 01:54 PM 137 mg/dL N Blood chemistry[[id number]] Glucose [Mass/volume] in Serum or Plasma [2345-7] 09/24/2024 10:22 AM 88 mg/dL N Blood chemistry[[id number]] Glucose [Mass/volume] in Serum or Plasma [2345-7] 09/23/2024 06:27 PM 204 mg/dL N Blood chemistry[[id number]] Glucose [Mass/volume] in Serum or Plasma [2345-7] 09/23/2024 05:08 PM 323 mg/dL N Blood chemistry[[id number]] Glucose [Mass/volume] in Serum or Plasma [2345-7] 09/23/2024 03:05 PM 166 mg/dL N Blood chemistry[[id number]] Glucose [Mass/volume] in Serum or Plasma [2345-7] 09/23/2024 12:39 PM 148 mg/dL N Blood chemistry[[id number]] Glucose [Mass/volume] in Serum or Plasma [2345-7] 09/23/2024 10:11 AM 202 mg/dL N Blood chemistry[[id number]] Glucose [Mass/volume] in Serum or Plasma [2345-7] 09/22/2024 05:06 PM 119 mg/dL N Blood chemistry[[id number]] Glucose [Mass/volume] in Serum or Plasma [2345-7] 09/22/2024 05:05 PM 119 mg/dL N Blood chemistry[[id number]] Glucose [Mass/volume] in Serum or Plasma [2345-7] 09/22/2024 12:57 PM 146 mg/dL N Blood chemistry[[id number]] Glucose [Mass/volume] in Serum or Plasma [2345-7] 09/22/2024 10:11 AM 207 mg/dL N Blood chemistry[[id number]] Glucose [Mass/volume] in Serum or Plasma [2345-7] 09/21/2024 04:45 PM 267 mg/dL N Blood chemistry[[id number]] Glucose [Mass/volume] in Serum or Plasma [2345-7] 09/21/2024 01:51 PM 184 mg/dL N Blood chemistry[[id number]] Glucose [Mass/volume] in Serum or Plasma [2345-7] 09/21/2024 12:27 PM 173 mg/dL N Blood chemistry[[id number]] Glucose [Mass/volume] in Serum or Plasma [2345-7] 09/21/2024 10:02 AM 278 mg/dL N Blood chemistry[[id number]] Glucose [Mass/volume] in Serum or Plasma [2345-7] 09/20/2024 04:52 PM 294 mg/dL N Blood chemistry[[id number]] Glucose [Mass/volume] in Serum or Plasma [2345-7] 09/20/2024 01:40 PM 157 mg/dL N Blood chemistry[[id number]] Glucose [Mass/volume] in Serum or Plasma [2345-7] 09/20/2024 01:28 PM 245 mg/dL N Blood chemistry[[id number]] Glucose [Mass/volume] in Serum or Plasma [2345-7] 09/20/2024 10:15 AM 245 mg/dL N Blood chemistry[[id number]] Glucose [Mass/volume] in Serum or Plasma [2345-7] 09/20/2024 10:11 AM 245 mg/dL N Blood chemistry[[id number]] Glucose [Mass/volume] in Serum or Plasma [2345-7] 09/19/2024 05:00 PM 325 mg/dL N Blood chemistry[[id number]] Glucose [Mass/volume] in Serum or Plasma [2345-7] 09/19/2024 12:43 PM 175 mg/dL N Blood chemistry[[id number]] Glucose [Mass/volume] in Serum or Plasma [2345-7] 09/19/2024 12:35 PM 193 mg/dL N Blood chemistry[[id number]] Glucose [Mass/volume] in Serum or Plasma [2345-7] 09/19/2024 10:15 AM 94 mg/dL N Blood chemistry[[id number]] Glucose [Mass/volume] in Serum or Plasma [2345-7] 09/18/2024 05:41 PM 346 mg/dL N Blood chemistry[[id number]] Glucose [Mass/volume] in Serum or Plasma [2345-7] 09/18/2024 04:41 PM 273 mg/dL N Blood chemistry[[id number]] Glucose [Mass/volume] in Serum or Plasma [2345-7] 09/18/2024 03:32 PM 183 mg/dL N Blood chemistry[[id number]] Glucose [Mass/volume] in Serum or Plasma [2345-7] 09/18/2024 10:28 AM 266 mg/dL N Blood chemistry[[id number]] Glucose [Mass/volume] in Serum or Plasma [2345-7] 09/17/2024 06:50 PM 197 mg/dL N Blood chemistry[[id number]] Glucose [Mass/volume] in Serum or Plasma [2345-7] 09/17/2024 05:50 PM 149 mg/dL N Blood chemistry[[id number]] Glucose [Mass/volume] in Serum or Plasma [2345-7] 09/17/2024 01:04 PM 150 mg/dL N Blood chemistry[[id number]] Glucose [Mass/volume] in Serum or Plasma [2345-7] 09/17/2024 10:52 AM 192 mg/dL N Blood chemistry[[id number]] Glucose [Mass/volume] in Serum or Plasma [2345-7] 09/16/2024 05:06 PM 222 mg/dL N Blood chemistry[[id number]] Glucose [Mass/volume] in Serum or Plasma [2345-7] 09/16/2024 04:56 PM 188 mg/dL N Blood chemistry[[id number]] Glucose [Mass/volume] in Serum or Plasma [2345-7] 09/16/2024 12:55 PM 118 mg/dL N Blood chemistry[[id number]] Glucose [Mass/volume] in Serum or Plasma [2345-7] 09/16/2024 10:19 AM 245 mg/dL N Blood chemistry[[id number]] Glucose [Mass/volume] in Serum or Plasma [2345-7] 09/15/2024 05:17 PM 288 mg/dL N Blood chemistry[[id number]] Glucose [Mass/volume] in Serum or Plasma [2345-7] 09/15/2024 01:44 PM 174 mg/dL N Blood chemistry[[id number]] Glucose [Mass/volume] in Serum or Plasma [2345-7] 09/15/2024 01:01 PM 115 mg/dL N Blood chemistry[[id number]] Glucose [Mass/volume] in Serum or Plasma [2345-7] 09/15/2024 10:42 AM 300 mg/dL N Blood chemistry[[id number]] Glucose [Mass/volume] in Serum or Plasma [2345-7] 09/14/2024 05:24 PM 230 mg/dL N Blood chemistry[[id number]] Glucose [Mass/volume] in Serum or Plasma [2345-7] 09/14/2024 01:28 PM 148 mg/dL N Blood chemistry[[id number]] Glucose [Mass/volume] in Serum or Plasma [2345-7] 09/14/2024 12:44 PM 115 mg/dL N Blood chemistry[[id number]] Glucose [Mass/volume] in Serum or Plasma [2345-7] 09/14/2024 10:08 AM 120 mg/dL N Blood chemistry[[id number]] Glucose [Mass/volume] in Serum or Plasma [2345-7] 09/13/2024 04:36 PM 203 mg/dL N Blood chemistry[[id number]] Glucose [Mass/volume] in Serum or Plasma [2345-7] 09/13/2024 02:08 PM 173 mg/dL N Blood chemistry[[id number]] Glucose [Mass/volume] in Serum or Plasma [2345-7] 09/13/2024 02:07 PM 173 mg/dL N Blood chemistry[[id number]] Glucose [Mass/volume] in Serum or Plasma [2345-7] 09/13/2024 01:52 PM 240 mg/dL N Blood chemistry[[id number]] Glucose [Mass/volume] in Serum or Plasma [2345-7] 09/13/2024 10:10 AM 181 mg/dL N Blood chemistry[[id number]] Glucose [Mass/volume] in Serum or Plasma [2345-7] 09/12/2024 05:48 PM 219 mg/dL N Blood chemistry[[id number]] Glucose [Mass/volume] in Serum or Plasma [2345-7] 09/12/2024 12:57 PM 268 mg/dL N Blood chemistry[[id number]] Glucose [Mass/volume] in Serum or Plasma [2345-7] 09/12/2024 12:42 PM 232 mg/dL N Blood chemistry[[id number]] Glucose [Mass/volume] in Serum or Plasma [2345-7] 09/12/2024 09:58 AM 251 mg/dL N Blood chemistry[[id number]] Glucose [Mass/volume] in Serum or Plasma [2345-7] 09/11/2024 05:27 PM 246 mg/dL N Blood chemistry[[id number]] Glucose [Mass/volume] in Serum or Plasma [2345-7] 09/11/2024 01:57 PM 74 mg/dL N Blood chemistry[[id number]] Glucose [Mass/volume] in Serum or Plasma [2345-7] 09/11/2024 12:51 PM 124 mg/dL N Blood chemistry[[id number]] Glucose [Mass/volume] in Serum or Plasma [2345-7] 09/11/2024 10:15 AM 137 mg/dL N Blood chemistry[[id number]] Glucose [Mass/volume] in Serum or Plasma [2345-7] 09/10/2024 04:56 PM 210 mg/dL N Blood chemistry[[id number]] Glucose [Mass/volume] in Serum or Plasma [2345-7] 09/10/2024 02:38 PM 223 mg/dL N Blood chemistry[[id number]] Glucose [Mass/volume] in Serum or Plasma [2345-7] 09/10/2024 12:22 PM 119 mg/dL N Blood chemistry[[id number]] Glucose [Mass/volume] in Serum or Plasma [2345-7] 09/10/2024 09:25 AM 131 mg/dL N Blood chemistry[[id number]] Glucose [Mass/volume] in Serum or Plasma [2345-7] 09/09/2024 03:38 PM 193 mg/dL N Blood chemistry[[id number]] Glucose [Mass/volume] in Serum or Plasma [2345-7] 09/09/2024 02:40 PM 161 mg/dL N Blood chemistry[[id number]] Glucose [Mass/volume] in Serum or Plasma [2345-7] 09/09/2024 01:06 PM 115 mg/dL N Blood chemistry[[id number]] Glucose [Mass/volume] in Serum or Plasma [2345-7] 09/09/2024 08:25 AM 193 mg/dL N Blood chemistry[[id number]] Glucose [Mass/volume] in Serum or Plasma [2345-7] 09/08/2024 04:23 PM 125 mg/dL N Blood chemistry[[id number]] Glucose [Mass/volume] in Serum or Plasma [2345-7] 09/08/2024 04:22 PM 177 mg/dL N Blood chemistry[[id number]] Glucose [Mass/volume] in Serum or Plasma [2345-7] 09/08/2024 12:15 PM 170 mg/dL N Blood chemistry[[id number]] Glucose [Mass/volume] in Serum or Plasma [2345-7] 09/08/2024 12:14 PM 170 mg/dL N Blood chemistry[[id number]] Glucose [Mass/volume] in Serum or Plasma [2345-7] 09/08/2024 09:25 AM 169 mg/dL N Blood chemistry[[id number]] Glucose [Mass/volume] in Serum or Plasma [2345-7] 09/07/2024 02:29 PM 154 mg/dL N Blood chemistry[[id number]] Glucose [Mass/volume] in Serum or Plasma [2345-7] 09/07/2024 12:44 PM 175 mg/dL N Blood chemistry[[id number]] Glucose [Mass/volume] in Serum or Plasma [2345-7] 09/07/2024 10:41 AM 422 mg/dL N Blood chemistry[[id number]] Glucose [Mass/volume] in Serum or Plasma [2345-7] 09/07/2024 07:31 AM 330 mg/dL N Blood chemistry[[id number]] Glucose [Mass/volume] in Serum or Plasma [2345-7] 09/06/2024 04:59 PM 245 mg/dL N Blood chemistry[[id number]] Glucose [Mass/volume] in Serum or Plasma [2345-7] 09/06/2024 02:51 PM 107 mg/dL N Blood chemistry[[id number]] Glucose [Mass/volume] in Serum or Plasma [2345-7] 09/06/2024 12:07 PM 84 mg/dL N Blood chemistry[[id number]] Glucose [Mass/volume] in Serum or Plasma [2345-7] 09/06/2024 09:16 AM 140 mg/dL N Blood chemistry[[id number]] Glucose [Mass/volume] in Serum or Plasma [2345-7] 09/05/2024 04:25 PM 96 mg/dL N Blood chemistry[[id number]] Glucose [Mass/volume] in Serum or Plasma [2345-7] 09/05/2024 12:50 PM 178 mg/dL N Blood chemistry[[id number]] Glucose [Mass/volume] in Serum or Plasma [2345-7] 09/05/2024 12:38 PM 167 mg/dL N Blood chemistry[[id number]] Glucose [Mass/volume] in Serum or Plasma [2345-7] 09/05/2024 09:37 AM 213 mg/dL N Blood chemistry[[id number]] Glucose [Mass/volume] in Serum or Plasma [2345-7] 09/04/2024 05:13 PM 303 mg/dL N Blood chemistry[[id number]] Glucose [Mass/volume] in Serum or Plasma [2345-7] 09/04/2024 03:56 PM 114 mg/dL N Blood chemistry[[id number]] Glucose [Mass/volume] in Serum or Plasma [2345-7] 09/04/2024 12:09 PM 190 mg/dL N Blood chemistry[[id number]] Glucose [Mass/volume] in Serum or Plasma [2345-7] 09/04/2024 09:34 AM 144 mg/dL N Blood chemistry[[id number]] Glucose [Mass/volume] in Serum or Plasma [2345-7] 09/04/2024 09:33 AM 144 mg/dL N Blood chemistry[[id number]] Glucose [Mass/volume] in Serum or Plasma [2345-7] 09/03/2024 04:15 PM 252 mg/dL N Blood chemistry[[id number]] Glucose [Mass/volume] in Serum or Plasma [2345-7] 09/03/2024 01:02 PM 208 mg/dL N Blood chemistry[[id number]] Glucose [Mass/volume] in Serum or Plasma [2345-7] 09/03/2024 12:53 PM 130 mg/dL N Blood chemistry[[id number]] Glucose [Mass/volume] in Serum or Plasma [2345-7] 09/03/2024 09:01 AM 87 mg/dL N Blood chemistry[[id number]] Glucose [Mass/volume] in Serum or Plasma [2345-7] 09/02/2024 04:45 PM 170 mg/dL N Blood chemistry[[id number]] Glucose [Mass/volume] in Serum or Plasma [2345-7] 09/02/2024 01:13 PM 168 mg/dL N Blood chemistry[[id number]] Glucose [Mass/volume] in Serum or Plasma [2345-7] 09/02/2024 12:09 PM 129 mg/dL N Blood chemistry[[id number]] Glucose [Mass/volume] in Serum or Plasma [2345-7] 09/02/2024 10:01 AM 277 mg/dL N Blood chemistry[[id number]] Glucose [Mass/volume] in Serum or Plasma [2345-7] 09/01/2024 04:15 PM 240 mg/dL N Blood chemistry[[id number]] Glucose [Mass/volume] in Serum or Plasma [2345-7] 09/01/2024 02:35 PM 150 mg/dL N Blood chemistry[[id number]] Glucose [Mass/volume] in Serum or Plasma [2345-7] 09/01/2024 12:48 PM 222 mg/dL N Blood chemistry[[id number]] Glucose [Mass/volume] in Serum or Plasma [2345-7] 09/01/2024 12:14 PM 150 mg/dL N Glucose [Mass/volume] in Serum or Plasma [2345-7] 09/01/2024 12:14 PM 150 mg/dL N Blood chemistry[[id number]] Glucose [Mass/volume] in Serum or Plasma [2345-7] 09/01/2024 09:27 AM 176 mg/dL N Blood chemistry[[id number]] Glucose [Mass/volume] in Serum or Plasma [2345-7] 08/31/2024 04:04 PM 269 mg/dL N Blood chemistry[[id number]] Glucose [Mass/volume] in Serum or Plasma [2345-7] 08/31/2024 04:03 PM 269 mg/dL N Blood chemistry[[id number]] Glucose [Mass/volume] in Serum or Plasma [2345-7] 08/31/2024 01:03 PM 223 mg/dL N Blood chemistry[[id number]] Glucose [Mass/volume] in Serum or Plasma [2345-7] 08/31/2024 12:57 PM 167 mg/dL N Blood chemistry[[id number]] Glucose [Mass/volume] in Serum or Plasma [2345-7] 08/31/2024 10:30 AM 243 mg/dL N Blood chemistry[[id number]] Glucose [Mass/volume] in Serum or Plasma [2345-7] 08/30/2024 04:22 PM 203 mg/dL N Blood chemistry[[id number]] Glucose [Mass/volume] in Serum or Plasma [2345-7] 08/30/2024 12:57 PM 156 mg/dL N Blood chemistry[[id number]] Glucose [Mass/volume] in Serum or Plasma [2345-7] 08/30/2024 12:22 PM 155 mg/dL N Blood chemistry[[id number]] Glucose [Mass/volume] in Serum or Plasma [2345-7] 08/30/2024 08:54 AM 143 mg/dL N COVID-19 Test Viral Antigen null flavor [null] 08/29/2024 05:00 PM See note NEG COVID-19 Test Viral Antigen Blood chemistry[[id number]] Glucose [Mass/volume] in Serum or Plasma [2345-7] 08/29/2024 03:47 PM 160 mg/dL N Blood chemistry[[id number]] Glucose [Mass/volume] in Serum or Plasma [2345-7] 08/29/2024 03:17 PM 182 mg/dL N Blood chemistry[[id number]] Glucose [Mass/volume] in Serum or Plasma [2345-7] 08/29/2024 11:50 AM 95 mg/dL N Blood chemistry[[id number]] Glucose [Mass/volume] in Serum or Plasma [2345-7] 08/29/2024 09:07 AM 216 mg/dL N Blood chemistry[[id number]] Glucose [Mass/volume] in Serum or Plasma [2345-7] 08/28/2024 04:36 PM 214 mg/dL N Blood chemistry[[id number]] Glucose [Mass/volume] in Serum or Plasma [2345-7] 08/28/2024 01:57 PM 117 mg/dL N Blood chemistry[[id number]] Glucose [Mass/volume] in Serum or Plasma [2345-7] 08/28/2024 12:48 PM 125 mg/dL N Blood chemistry[[id number]] Glucose [Mass/volume] in Serum or Plasma [2345-7] 08/28/2024 09:13 AM 185 mg/dL N Blood chemistry[[id number]] Glucose [Mass/volume] in Serum or Plasma [2345-7] 08/27/2024 04:14 PM 318 mg/dL N Blood chemistry[[id number]] Glucose [Mass/volume] in Serum or Plasma [2345-7] 08/27/2024 01:20 PM 259 mg/dL N Blood chemistry[[id number]] Glucose [Mass/volume] in Serum or Plasma [2345-7] 08/27/2024 12:13 PM 117 mg/dL N Blood chemistry[[id number]] Glucose [Mass/volume] in Serum or Plasma [2345-7] 08/27/2024 09:14 AM 196 mg/dL N Blood chemistry[[id number]] Glucose [Mass/volume] in Serum or Plasma [2345-7] 08/26/2024 03:39 PM 254 mg/dL N Blood chemistry[[id number]] Glucose [Mass/volume] in Serum or Plasma [2345-7] 08/26/2024 12:08 PM 178 mg/dL N Blood chemistry[[id number]] Glucose [Mass/volume] in Serum or Plasma [2345-7] 08/26/2024 11:19 AM 192 mg/dL N Blood chemistry[[id number]] Glucose [Mass/volume] in Serum or Plasma [2345-7] 08/26/2024 08:54 AM 280 mg/dL N Blood chemistry[[id number]] Glucose [Mass/volume] in Serum or Plasma [2345-7] 08/25/2024 04:40 PM 236 mg/dL N Blood chemistry[[id number]] Glucose [Mass/volume] in Serum or Plasma [2345-7] 08/25/2024 01:20 PM 210 mg/dL N Blood chemistry[[id number]] Glucose [Mass/volume] in Serum or Plasma [2345-7] 08/25/2024 12:50 PM 194 mg/dL N Blood chemistry[[id number]] Glucose [Mass/volume] in Serum or Plasma [2345-7] 08/25/2024 09:10 AM 445 mg/dL N Blood chemistry[[id number]] Glucose [Mass/volume] in Serum or Plasma [2345-7] 08/24/2024 04:06 PM 403 mg/dL N Blood chemistry[[id number]] Glucose [Mass/volume] in Serum or Plasma [2345-7] 08/24/2024 01:31 PM 264 mg/dL N Blood chemistry[[id number]] Glucose [Mass/volume] in Serum or Plasma [2345-7] 08/24/2024 01:09 PM 346 mg/dL N Blood chemistry[[id number]] Glucose [Mass/volume] in Serum or Plasma [2345-7] 08/24/2024 11:31 AM 264 mg/dL N Blood chemistry[[id number]] Glucose [Mass/volume] in Serum or Plasma [2345-7] 08/24/2024 08:49 AM 376 mg/dL N Blood chemistry[[id number]] Glucose [Mass/volume] in Serum or Plasma [2345-7] 08/23/2024 03:52 PM 260 mg/dL N Blood chemistry[[id number]] Glucose [Mass/volume] in Serum or Plasma [2345-7] 08/23/2024 01:26 PM 400 mg/dL N Blood chemistry[[id number]] Glucose [Mass/volume] in Serum or Plasma [2345-7] 08/23/2024 12:32 PM 186 mg/dL N Blood chemistry[[id number]] Glucose [Mass/volume] in Serum or Plasma [2345-7] 08/23/2024 09:45 AM 257 mg/dL N COVID-19 Test Viral Antigen null flavor [null] 08/22/2024 05:00 PM See note NEG COVID-19 Test Viral Antigen Blood chemistry[[id number]] Glucose [Mass/volume] in Serum or Plasma [2345-7] 08/22/2024 04:19 PM 294 mg/dL N Blood chemistry[[id number]] Glucose [Mass/volume] in Serum or Plasma [2345-7] 08/22/2024 12:47 PM 166 mg/dL N Blood chemistry[[id number]] Glucose [Mass/volume] in Serum or Plasma [2345-7] 08/22/2024 11:47 AM 231 mg/dL N Blood chemistry[[id number]] Glucose [Mass/volume] in Serum or Plasma [2345-7] 08/22/2024 09:35 AM 299 mg/dL N Blood chemistry[[id number]] Glucose [Mass/volume] in Serum or Plasma [2345-7] 08/21/2024 04:26 PM 240 mg/dL N Blood chemistry[[id number]] Glucose [Mass/volume] in Serum or Plasma [2345-7] 08/21/2024 03:36 PM 143 mg/dL N Blood chemistry[[id number]] Glucose [Mass/volume] in Serum or Plasma [2345-7] 08/21/2024 01:08 PM 136 mg/dL N Blood chemistry[[id number]] Glucose [Mass/volume] in Serum or Plasma [2345-7] 08/21/2024 09:17 AM 229 mg/dL N Blood chemistry[[id number]] Glucose [Mass/volume] in Serum or Plasma [2345-7] 08/20/2024 04:05 PM 289 mg/dL N Blood chemistry[[id number]] Glucose [Mass/volume] in Serum or Plasma [2345-7] 08/20/2024 03:11 PM 310 mg/dL N Blood chemistry[[id number]] Glucose [Mass/volume] in Serum or Plasma [2345-7] 08/20/2024 12:14 PM 121 mg/dL N Blood chemistry[[id number]] Glucose [Mass/volume] in Serum or Plasma [2345-7] 08/20/2024 09:21 AM 245 mg/dL N Blood chemistry[[id number]] Glucose [Mass/volume] in Serum or Plasma [2345-7] 08/19/2024 03:45 PM 318 mg/dL N Blood chemistry[[id number]] Glucose [Mass/volume] in Serum or Plasma [2345-7] 08/19/2024 02:19 PM 126 mg/dL N Blood chemistry[[id number]] Glucose [Mass/volume] in Serum or Plasma [2345-7] 08/19/2024 12:07 PM 130 mg/dL N Blood chemistry[[id number]] Glucose [Mass/volume] in Serum or Plasma [2345-7] 08/19/2024 09:44 AM 272 mg/dL N Blood chemistry[[id number]] Glucose [Mass/volume] in Serum or Plasma [2345-7] 08/18/2024 04:15 PM 333 mg/dL N Blood chemistry[[id number]] Glucose [Mass/volume] in Serum or Plasma [2345-7] 08/18/2024 12:19 PM 188 mg/dL N Blood chemistry[[id number]] Glucose [Mass/volume] in Serum or Plasma [2345-7] 08/18/2024 12:00 PM 162 mg/dL N Blood chemistry[[id number]] Glucose [Mass/volume] in Serum or Plasma [2345-7] 08/18/2024 08:45 AM 274 mg/dL N Blood chemistry[[id number]] Glucose [Mass/volume] in Serum or Plasma [2345-7] 08/17/2024 04:04 PM 373 mg/dL N Blood chemistry[[id number]] Glucose [Mass/volume] in Serum or Plasma [2345-7] 08/17/2024 04:03 PM 373 mg/dL N Blood chemistry[[id number]] Glucose [Mass/volume] in Serum or Plasma [2345-7] 08/17/2024 01:17 PM 311 mg/dL N Blood chemistry[[id number]] Glucose [Mass/volume] in Serum or Plasma [2345-7] 08/17/2024 12:36 PM 74 mg/dL N Blood chemistry[[id number]] Glucose [Mass/volume] in Serum or Plasma [2345-7] 08/17/2024 09:01 AM 282 mg/dL N Glucose [Mass/volume] in Serum or Plasma [2345-7] 08/17/2024 09:01 AM 282 mg/dL N Blood chemistry[[id number]] Glucose [Mass/volume] in Serum or Plasma [2345-7] 08/16/2024 11:52 AM 141 mg/dL N Glucose [Mass/volume] in Serum or Plasma [2345-7] 08/16/2024 11:52 AM 141 mg/dL N Blood chemistry[[id number]] Glucose [Mass/volume] in Serum or Plasma [2345-7] 08/16/2024 11:38 AM 295 mg/dL N Blood chemistry[[id number]] Glucose [Mass/volume] in Serum or Plasma [2345-7] 08/16/2024 09:33 AM 351 mg/dL N Blood chemistry[[id number]] Glucose [Mass/volume] in Serum or Plasma [2345-7] 08/16/2024 06:20 AM 295 mg/dL N COVID-19 Test Viral Antigen null flavor [null] 08/15/2024 05:00 PM See note NEG COVID-19 Test Viral Antigen Blood chemistry[[id number]] Glucose [Mass/volume] in Serum or Plasma [2345-7] 08/15/2024 04:22 PM 199 mg/dL N Blood chemistry[[id number]] Glucose [Mass/volume] in Serum or Plasma [2345-7] 08/15/2024 11:41 AM 257 mg/dL N Blood chemistry[[id number]] Glucose [Mass/volume] in Serum or Plasma [2345-7] 08/15/2024 11:39 AM 259 mg/dL N Blood chemistry[[id number]] Glucose [Mass/volume] in Serum or Plasma [2345-7] 08/15/2024 09:28 AM 201 mg/dL N Blood chemistry[[id number]] Glucose [Mass/volume] in Serum or Plasma [2345-7] 08/14/2024 04:20 PM 309 mg/dL N Blood chemistry[[id number]] Glucose [Mass/volume] in Serum or Plasma [2345-7] 08/14/2024 02:22 PM 321 mg/dL N Blood chemistry[[id number]] Glucose [Mass/volume] in Serum or Plasma [2345-7] 08/14/2024 02:16 PM 245 mg/dL N Blood chemistry[[id number]] Glucose [Mass/volume] in Serum or Plasma [2345-7] 08/14/2024 09:23 AM 82 mg/dL N Blood chemistry[[id number]] Glucose [Mass/volume] in Serum or Plasma [2345-7] 08/13/2024 04:04 PM 213 mg/dL N Blood chemistry[[id number]] Glucose [Mass/volume] in Serum or Plasma [2345-7] 08/13/2024 03:15 PM 159 mg/dL N Blood chemistry[[id number]] Glucose [Mass/volume] in Serum or Plasma [2345-7] 08/13/2024 01:19 PM 147 mg/dL N Blood chemistry[[id number]] Glucose [Mass/volume] in Serum or Plasma [2345-7] 08/13/2024 09:25 AM 247 mg/dL N Blood chemistry[[id number]] Glucose [Mass/volume] in Serum or Plasma [2345-7] 08/12/2024 04:42 PM 160 mg/dL N Blood chemistry[[id number]] Glucose [Mass/volume] in Serum or Plasma [2345-7] 08/12/2024 03:37 PM 199 mg/dL N Blood chemistry[[id number]] Glucose [Mass/volume] in Serum or Plasma [2345-7] 08/12/2024 12:50 PM 159 mg/dL N Blood chemistry[[id number]] Glucose [Mass/volume] in Serum or Plasma [2345-7] 08/12/2024 08:49 AM 374 mg/dL N Blood chemistry[[id number]] Glucose [Mass/volume] in Serum or Plasma [2345-7] 08/11/2024 03:29 PM 310 mg/dL N Blood chemistry[[id number]] Glucose [Mass/volume] in Serum or Plasma [2345-7] 08/11/2024 01:55 PM 327 mg/dL N Blood chemistry[[id number]] Glucose [Mass/volume] in Serum or Plasma [2345-7] 08/11/2024 12:49 PM 138 mg/dL N Blood chemistry[[id number]] Glucose [Mass/volume] in Serum or Plasma [2345-7] 08/11/2024 09:11 AM 384 mg/dL N Blood chemistry[[id number]] Glucose [Mass/volume] in Serum or Plasma [2345-7] 08/11/2024 09:10 AM 384 mg/dL N Blood chemistry[[id number]] Glucose [Mass/volume] in Serum or Plasma [2345-7] 08/10/2024 03:35 PM 245 mg/dL N Blood chemistry[[id number]] Glucose [Mass/volume] in Serum or Plasma [2345-7] 08/10/2024 12:42 PM 171 mg/dL N Blood chemistry[[id number]] Glucose [Mass/volume] in Serum or Plasma [2345-7] 08/10/2024 12:32 PM 252 mg/dL N Blood chemistry[[id number]] Glucose [Mass/volume] in Serum or Plasma [2345-7] 08/10/2024 09:08 AM 297 mg/dL N Blood chemistry[[id number]] Glucose [Mass/volume] in Serum or Plasma [2345-7] 08/09/2024 03:55 PM 261 mg/dL N Blood chemistry[[id number]] Glucose [Mass/volume] in Serum or Plasma [2345-7] 08/09/2024 03:03 PM 214 mg/dL N Blood chemistry[[id number]] Glucose [Mass/volume] in Serum or Plasma [2345-7] 08/09/2024 12:21 PM 107 mg/dL N Blood chemistry[[id number]] Glucose [Mass/volume] in Serum or Plasma [2345-7] 08/09/2024 08:58 AM 271 mg/dL N COVID-19 Test Viral Antigen null flavor [null] 08/08/2024 05:00 PM See note NEG COVID-19 Test Viral Antigen Blood chemistry[[id number]] Glucose [Mass/volume] in Serum or Plasma [2345-7] 08/08/2024 03:47 PM 266 mg/dL N Blood chemistry[[id number]] Glucose [Mass/volume] in Serum or Plasma [2345-7] 08/08/2024 12:07 PM 174 mg/dL N Blood chemistry[[id number]] Glucose [Mass/volume] in Serum or Plasma [2345-7] 08/08/2024 11:58 AM 242 mg/dL N Blood chemistry[[id number]] Glucose [Mass/volume] in Serum or Plasma [2345-7] 08/08/2024 08:54 AM 215 mg/dL N Blood chemistry[[id number]] Glucose [Mass/volume] in Serum or Plasma [2345-7] 08/08/2024 06:06 AM 100 mg/dL N Blood chemistry[[id number]] Glucose [Mass/volume] in Serum or Plasma [2345-7] 08/07/2024 04:32 PM 190 mg/dL N Blood chemistry[[id number]] Glucose [Mass/volume] in Serum or Plasma [2345-7] 08/07/2024 01:25 PM 178 mg/dL N Blood chemistry[[id number]] Glucose [Mass/volume] in Serum or Plasma [2345-7] 08/07/2024 09:22 AM 300 mg/dL N Blood chemistry[[id number]] Glucose [Mass/volume] in Serum or Plasma [2345-7] 08/06/2024 04:39 PM 277 mg/dL N Blood chemistry[[id number]] Glucose [Mass/volume] in Serum or Plasma [2345-7] 08/06/2024 04:15 PM 340 mg/dL N Blood chemistry[[id number]] Glucose [Mass/volume] in Serum or Plasma [2345-7] 08/06/2024 12:41 PM 175 mg/dL N Blood chemistry[[id number]] Glucose [Mass/volume] in Serum or Plasma [2345-7] 08/06/2024 09:28 AM 197 mg/dL N Blood chemistry[[id number]] Glucose [Mass/volume] in Serum or Plasma [2345-7] 08/05/2024 03:48 PM 275 mg/dL N Blood chemistry[[id number]] Glucose [Mass/volume] in Serum or Plasma [2345-7] 08/05/2024 01:58 PM 201 mg/dL N Blood chemistry[[id number]] Glucose [Mass/volume] in Serum or Plasma [2345-7] 08/05/2024 01:09 PM 145 mg/dL N Blood chemistry[[id number]] Glucose [Mass/volume] in Serum or Plasma [2345-7] 08/05/2024 09:15 AM 248 mg/dL N Blood chemistry[[id number]] Glucose [Mass/volume] in Serum or Plasma [2345-7] 08/04/2024 04:13 PM 169 mg/dL N Blood chemistry[[id number]] Glucose [Mass/volume] in Serum or Plasma [2345-7] 08/04/2024 12:14 PM 161 mg/dL N Blood chemistry[[id number]] Glucose [Mass/volume] in Serum or Plasma [2345-7] 08/04/2024 12:10 PM 175 mg/dL N Blood chemistry[[id number]] Glucose [Mass/volume] in Serum or Plasma [2345-7] 08/04/2024 08:21 AM 227 mg/dL N Blood chemistry[[id number]] Glucose [Mass/volume] in Serum or Plasma [2345-7] 08/03/2024 05:34 PM 279 mg/dL N Blood chemistry[[id number]] Glucose [Mass/volume] in Serum or Plasma [2345-7] 08/03/2024 03:38 PM 82 mg/dL N Blood chemistry[[id number]] Glucose [Mass/volume] in Serum or Plasma [2345-7] 08/03/2024 01:09 PM 243 mg/dL N Blood chemistry[[id number]] Glucose [Mass/volume] in Serum or Plasma [2345-7] 08/03/2024 10:41 AM 238 mg/dL N Blood chemistry[[id number]] Glucose [Mass/volume] in Serum or Plasma [2345-7] 08/02/2024 04:22 PM 280 mg/dL N Blood chemistry[[id number]] Glucose [Mass/volume] in Serum or Plasma [2345-7] 08/02/2024 01:27 PM 267 mg/dL N Blood chemistry[[id number]] Glucose [Mass/volume] in Serum or Plasma [2345-7] 08/02/2024 12:10 PM 172 mg/dL N Blood chemistry[[id number]] Glucose [Mass/volume] in Serum or Plasma [2345-7] 08/02/2024 09:28 AM 257 mg/dL N COVID-19 Test Viral Antigen null flavor [null] 08/01/2024 05:00 PM See note NEG COVID-19 Test Viral Antigen Blood chemistry[[id number]] Glucose [Mass/volume] in Serum or Plasma [2345-7] 08/01/2024 04:14 PM 248 mg/dL N Blood chemistry[[id number]] Glucose [Mass/volume] in Serum or Plasma [2345-7] 08/01/2024 01:58 PM 104 mg/dL N Blood chemistry[[id number]] Glucose [Mass/volume] in Serum or Plasma [2345-7] 08/01/2024 11:51 AM 251 mg/dL N Blood chemistry[[id number]] Glucose [Mass/volume] in Serum or Plasma [2345-7] 08/01/2024 11:40 AM 104 mg/dL N Blood chemistry[[id number]] Glucose [Mass/volume] in Serum or Plasma [2345-7] 08/01/2024 08:52 AM 275 mg/dL N Blood chemistry[[id number]] Glucose [Mass/volume] in Serum or Plasma [2345-7] 07/31/2024 04:45 PM 361 mg/dL N Blood chemistry[[id number]] Glucose [Mass/volume] in Serum or Plasma [2345-7] 07/31/2024 03:30 PM 211 mg/dL N Blood chemistry[[id number]] Glucose [Mass/volume] in Serum or Plasma [2345-7] 07/31/2024 02:42 PM 185 mg/dL N Blood chemistry[[id number]] Glucose [Mass/volume] in Serum or Plasma [2345-7] 07/31/2024 09:28 AM 206 mg/dL N Blood chemistry[[id number]] Glucose [Mass/volume] in Serum or Plasma [2345-7] 07/30/2024 04:22 PM 287 mg/dL N Blood chemistry[[id number]] Glucose [Mass/volume] in Serum or Plasma [2345-7] 07/30/2024 03:50 PM 290 mg/dL N Blood chemistry[[id number]] Glucose [Mass/volume] in Serum or Plasma [2345-7] 07/30/2024 01:42 PM 148 mg/dL N Blood chemistry[[id number]] Glucose [Mass/volume] in Serum or Plasma [2345-7] 07/30/2024 10:43 AM 166 mg/dL N Blood chemistry[[id number]] Glucose [Mass/volume] in Serum or Plasma [2345-7] 07/29/2024 04:12 PM 141 mg/dL N Blood chemistry[[id number]] Glucose [Mass/volume] in Serum or Plasma [2345-7] 07/29/2024 03:58 PM 114 mg/dL N Blood chemistry[[id number]] Glucose [Mass/volume] in Serum or Plasma [2345-7] 07/29/2024 11:47 AM 139 mg/dL N Blood chemistry[[id number]] Glucose [Mass/volume] in Serum or Plasma [2345-7] 07/29/2024 09:24 AM 284 mg/dL N Blood chemistry[[id number]] Glucose [Mass/volume] in Serum or Plasma [2345-7] 07/28/2024 03:40 PM 151 mg/dL N Blood chemistry[[id number]] Glucose [Mass/volume] in Serum or Plasma [2345-7] 07/28/2024 03:01 PM 167 mg/dL N Blood chemistry[[id number]] Glucose [Mass/volume] in Serum or Plasma [2345-7] 07/28/2024 12:24 PM 82 mg/dL N Blood chemistry[[id number]] Glucose [Mass/volume] in Serum or Plasma [2345-7] 07/28/2024 09:06 AM 430 mg/dL N Blood chemistry[[id number]] Glucose [Mass/volume] in Serum or Plasma [2345-7] 07/27/2024 04:29 PM 218 mg/dL N Blood chemistry[[id number]] Glucose [Mass/volume] in Serum or Plasma [2345-7] 07/27/2024 01:31 PM 183 mg/dL N Blood chemistry[[id number]] Glucose [Mass/volume] in Serum or Plasma [2345-7] 07/27/2024 11:23 AM 177 mg/dL N Blood chemistry[[id number]] Glucose [Mass/volume] in Serum or Plasma [2345-7] 07/27/2024 09:04 AM 237 mg/dL N Blood chemistry[[id number]] Glucose [Mass/volume] in Serum or Plasma [2345-7] 07/26/2024 04:25 PM 121 mg/dL N Blood chemistry[[id number]] Glucose [Mass/volume] in Serum or Plasma [2345-7] 07/26/2024 02:09 PM 250 mg/dL N Blood chemistry[[id number]] Glucose [Mass/volume] in Serum or Plasma [2345-7] 07/26/2024 12:10 PM 219 mg/dL N Blood chemistry[[id number]] Glucose [Mass/volume] in Serum or Plasma [2345-7] 07/26/2024 09:38 AM 273 mg/dL N COVID-19 Test Viral Antigen null flavor [null] 07/25/2024 05:00 PM See note NEG COVID-19 Test Viral Antigen Blood chemistry[[id number]] Glucose [Mass/volume] in Serum or Plasma [2345-7] 07/25/2024 03:42 PM 360 mg/dL N Blood chemistry[[id number]] Glucose [Mass/volume] in Serum or Plasma [2345-7] 07/25/2024 12:10 PM 194 mg/dL N Blood chemistry[[id number]] Glucose [Mass/volume] in Serum or Plasma [2345-7] 07/25/2024 11:57 AM 258 mg/dL N Blood chemistry[[id number]] Glucose [Mass/volume] in Serum or Plasma [2345-7] 07/25/2024 09:18 AM 120 mg/dL N Blood chemistry[[id number]] Glucose [Mass/volume] in Serum or Plasma [2345-7] 07/24/2024 04:37 PM 286 mg/dL N Blood chemistry[[id number]] Glucose [Mass/volume] in Serum or Plasma [2345-7] 07/24/2024 04:17 PM 335 mg/dL N Blood chemistry[[id number]] Glucose [Mass/volume] in Serum or Plasma [2345-7] 07/24/2024 12:59 PM 272 mg/dL N Blood chemistry[[id number]] Glucose [Mass/volume] in Serum or Plasma [2345-7] 07/24/2024 09:09 AM 190 mg/dL N Blood chemistry[[id number]] Glucose [Mass/volume] in Serum or Plasma [2345-7] 07/23/2024 04:33 PM 416 mg/dL N Blood chemistry[[id number]] Glucose [Mass/volume] in Serum or Plasma [2345-7] 07/23/2024 03:53 PM 190 mg/dL N Blood chemistry[[id number]] Glucose [Mass/volume] in Serum or Plasma [2345-7] 07/23/2024 02:07 PM 230 mg/dL N Blood chemistry[[id number]] Glucose [Mass/volume] in Serum or Plasma [2345-7] 07/23/2024 09:01 AM 341 mg/dL N Blood chemistry[[id number]] Glucose [Mass/volume] in Serum or Plasma [2345-7] 07/22/2024 04:21 PM 282 mg/dL N Blood chemistry[[id number]] Glucose [Mass/volume] in Serum or Plasma [2345-7] 07/22/2024 04:15 PM 242 mg/dL N Blood chemistry[[id number]] Glucose [Mass/volume] in Serum or Plasma [2345-7] 07/22/2024 12:23 PM 205 mg/dL N Blood chemistry[[id number]] Glucose [Mass/volume] in Serum or Plasma [2345-7] 07/22/2024 09:30 AM 287 mg/dL N Blood chemistry[[id number]] Glucose [Mass/volume] in Serum or Plasma [2345-7] 07/21/2024 03:46 PM 369 mg/dL N Blood chemistry[[id number]] Glucose [Mass/volume] in Serum or Plasma [2345-7] 07/21/2024 12:38 PM 280 mg/dL N Blood chemistry[[id number]] Glucose [Mass/volume] in Serum or Plasma [2345-7] 07/21/2024 12:11 PM 126 mg/dL N Blood chemistry[[id number]] Glucose [Mass/volume] in Serum or Plasma [2345-7] [...] Vaccine Unassigned Route of Administration 1 Completed COVID-19 Vaccine Unassigned Route of Administration Completed Influenza Vaccine Unassigned Route of Administration 1 Completed Influenza Vaccine Unassigned Route of Administration 1 Completed RSV Vaccine Unassigned Route of Administration 2022 Completed Pneumococcal Vaccine Unassigned Route of Administratio n 08/01/2022 Refused Pneumococcal Vaccine Unassigned Route of Administratio n 07/23/2023 Refused COVID-19 Vaccine Unassigned Route of Administration Refused [...] can't take p/o, if no results from [facility] [place] rectal 1.0 1.0 d 2021 Active Dulcolax (bisacodyl) (bisacodyl) 5 mg tablet,delayed release (DR/EC) (Dulcolax (bisacodyl) (bisacodyl)) 2 tabs/10mg, oral, Once A Day - PRN, Give if no results from [facility] [place] oral 1.0 1.0 d 2021 Active Fleet [...] diabetes mellitus with diabetic neuropathy, unspecified Active Tylenol (acetaminophen ) 325 mg tablet (Tylenol (acetaminophen )) 2 tabs/650mg, oral, Every 6 Hours - PRN, as needed for PRN pain/increased tempMay give rectally if necessary oral 1.0 6.0 h 2021 Active Trulicity (dulaglutide) 3 mg/0.5 mL pen injector (Trulicity (dulaglutide)) 1, subcutaneous, Once A Day on Thu subcutan eous 1.0 1.0 d 2023 Type 2 diabetes mellitus with diabetic chronic kidney disease Active hydrocodone-ac etaminophen 5-325 mg tablet (hydrocodone-a [...] 3 consecutive times or symptomatic call md brenda rene 1.0 2024 Active loratadine 10 mg tablet [...] pain, exempt R52 oral 1.0 8.0 h 10/09 Active Dulcolax (bisacodyl) (bisacodyl) 10 mg suppository (Dulcolax (bisacodyl) (bisacodyl)) 1 suppository, rectal, Once A Day - PRN, Give rectally if can't take p/o, if no results from [facility] [place] rectal 1.0 1.0 d 2024 Active lactulose 10 gram/15 mL solution (lactulose) 30, oral, Every 4 Hours, Lactulose 30 ml x 2 doses then q 4 hours until symptoms resolve constipation by delayed colonic transit ) oral 1.0 4.0 h 09/06 Active lactulose 10 gram/15 mL solution (lactulose) 30, oral, Every 4 Hours - PRN, Lactulose 30 ml q 4 hours until until BM oral 1.0 4.0 h 2024 Active alprazolam 0.5 mg tablet (alprazolam) 1, oral, Once A Day - PRN, pulled from [employer]kit qty3 oral 1.0 1.0 d 09/15 Active ceftriaxone 1 gram recon soln (ceftriaxone) 1gm, injection, Once A Day 1.0 1.0 d 09/21 Active Macrobid (nitrofurantoi n monohyd/m-cody t) 100 mg capsule (Macrobid (nitrofurantoi n monohyd/m-cody t)) 1 tab, oral, Twice A Day oral 1.0 12.0 h 09/26 Active Xylocaine (lidocaine hcl) 10 mg/mL (1 %) solution (Xylocaine (lidocaine hcl)) 2.1mL, injection, Once A Day, Use to dilute ceftriaxone injection 1.0 1.0 d 09/22 Active Xylocaine (lidocaine hcl) 10 mg/mL (1 %) solution (Xylocaine (lidocaine hcl)) 2.1mL, injection, Once A Day, Use to dilute ceftriaxone injection 1.0 1.0 d 09/22 Active alprazolam 0.5 mg tablet (alprazolam) 1, oral, Once A Day - PRN, Clinical indication anxiety oral 1.0 1.0 d 10/04 Active alprazolam 0.5 mg tablet (alprazolam) 1, oral, Once A Day - PRN, Clinical indication anxiety oral 1.0 1.0 d 10/04 Active alprazolam 0.5 mg tablet (alprazolam) 1, oral, Once A Day - PRN, Clinical indication anxiety oral 1.0 1.0 d 01/04 Active oxycodone 10 mg tablet (oxycodone) 1 tab, oral, Every 8 Hours - PRN, for pain, exempt R52 oral 1.0 8.0 h 2024 Active cefdinir 300 mg capsule (cefdinir) 300mg, oral, Twice A Day, cefdinir 300mg PO BID x 5 days UTI oral 1.0 12.0 h 10/31 Active Vital Signs Date Vital Result Comment 09/21/2024 09:52 AM Temperature (8310-5) 97.5 [degF] Respiratory Rate (9279-1) 18 /min Heart Rate (8867-4) 76 /min Blood Pressure Systolic (8480-6) 131 mm[Hg] Blood Pressure Diastolic (8462-4) 64 mm[Hg] Body Weight (80232-4) 212.8 [lb_av] Body Mass Index (19832-7) 38.92 kg/m2 08/31/2024 11:26 AM Body Weight (90055-0) 208.2 [lb_av ] Body Mass Index (40464-2) 38.08 kg/m2 08/24/2024 09:26 AM Respiratory Rate (9279-1) 16 /min Heart Rate (8867-4) 69 /min Blood Pressure Systolic (8480-6) 123 mm[Hg] Blood Pressure Diastolic (8462-4) 55 mm[Hg] 08/10/2024 02:44 PM Body Weight (72516-5) 200 [lb_av] Body Mass Index (02123-0) 36.58 kg/m2 10/17/2024 09:24 PM Oxygen Saturation (72407-5) 97 % 09/07/2024 10:55 PM Temperature (8310-5) 98.1 [degF] 09/14/2024 11:26 AM Body Weight (76520-8) 204.8 [lb_av ] Body Mass Index (88537-4) 37.45 kg/m2 08/10/2024 02:43 PM Respiratory Rate (9279-1) 16 /min Heart Rate (8867-4) 77 /min Blood Pressure Systolic (8480-6) 144 mm[Hg] Blood Pressure Diastolic (8462-4) 67 mm[Hg] 08/03/2024 11:22 AM Body Weight (54062-3) 196.8 [lb_av ] Body Mass Index (36329-4) 35.99 kg/m2 09/07/2024 10:25 AM Respiratory Rate (9279-1) 17 /min Heart Rate (8867-4) 77 /min Blood Pressure Systolic (8480-6) 115 mm[Hg] Blood Pressure Diastolic (8462-4) 42 mm[Hg] 10/13/2024 10:55 AM Body Weight (44525-8) 208.4 [lb_av ] Body Mass Index (76397-5) 38.11 kg/m2 09/28/2024 01:38 PM Body Weight (63953-4) 212.2 [lb_av ] Body Mass Index (51344-6) 38.81 kg/m2 08/24/2024 12:54 PM Body Weight (80971-5) 210.8 [lb_av ] Body Mass Index (18125-8) 38.55 kg/m2 10/13/2024 11:56 PM Oxygen Saturation (96720-2) 94 % 10/12/2024 09:26 AM Temperature (8310-5) 97.8 [degF] Respiratory Rate (9279-1) 16 /min Heart Rate (8867-4) 80 /min Blood Pressure Systolic (8480-6) 132 mm[Hg] Blood Pressure Diastolic (8462-4) 78 mm[Hg] 09/09/2024 12:10 AM Temperature (8310-5) 99.1 [degF] 09/09/2024 11:38 AM Body Weight (04906-8) 204.2 [lb_av ] Body Mass Index (25410-1) 37.34 kg/m2 07/27/2024 09:46 AM Body Weight (37115-0) 197 [lb_av] Body Mass Index (91313-1) 36.03 kg/m2 10/15/2024 09:10 AM Oxygen Saturation (08145-3) 96 % 09/07/2024 10:26 AM Body Weight (66129-7) 206.2 [lb_av ] Body Mass Index (84710-5) 37.71 kg/m2 10/15/2024 10:48 PM Oxygen Saturation (05859-8) 98 % 10/14/2024 07:18 AM Oxygen Saturation (22217-3) 98 % 10/12/2024 10:23 AM Body Weight (64268-4) 209 [lb_av] Body Mass Index (73573-4) 38.22 kg/m2 09/28/2024 09:25 AM Temperature (8310-5) 97.2 [degF] Respiratory Rate (9279-1) 18 /min Heart Rate (8867-4) 74 /min Blood Pressure Systolic (8480-6) 140 mm[Hg] Blood Pressure Diastolic (8462-4) 82 mm[Hg] 08/17/2024 10:34 AM Respiratory Rate (9279-1) 15 /min Heart Rate (8867-4) 68 /min Blood Pressure Systolic (8480-6) 116 mm[Hg] Blood Pressure Diastolic (8462-4) 71 mm[Hg] Body Weight (47797-8) 204.8 [lb_av] Body Mass Index (15260-3) 37.45 kg/m2 10/18/2024 10:35 AM Oxygen Saturation (93315-8) 96 % 10/11/2024 09:49 AM Body Weight (49298-5) 211.6 [lb_av ] Body Mass Index (31965-0) 38.7 kg/m2 10/10/2024 04:03 PM Body Weight (88202-0) 212.4 [lb_av ] Body Mass Index (63260-9) 38.84 kg/m2 10/09/2024 10:10 AM Body Weight (74395-6) 210.2 [lb_av ] Body Mass Index (53390-6) 38.44 kg/m2 10/17/2024 06:27 AM Oxygen Saturation (21856-3) 93 % 10/05/2024 08:23 AM Temperature (8310-5) 98 [degF] Respiratory Rate (9279-1) 16 /min Heart Rate (8867-4) 68 /min Blood Pressure Systolic (8480-6) 123 mm[Hg] Blood Pressure Diastolic (8462-4) 66 mm[Hg] 09/08/2024 10:36 AM Temperature (8310-5) 98.6 [degF] 08/31/2024 09:35 AM Temperature (8310-5) 98.3 [degF] Respiratory Rate (9279-1) 16 /min Heart Rate (8867-4) 68 /min Blood Pressure Systolic (8480-6) 122 mm[Hg] Blood Pressure Diastolic (8462-4) 70 mm[Hg] 09/14/2024 10:51 AM Temperature (8310-5) 98 [degF] Respiratory Rate (9279-1) 16 /min Heart Rate (8867-4) 67 /min Blood Pressure Systolic (8480-6) 158 mm[Hg] Blood Pressure Diastolic (8462-4) 67 mm[Hg] 08/09/2024 07:39 AM Body Weight (83933-4) 200.6 [lb_av ] Body Mass Index (86663-5) 36.69 kg/m2 09/07/2024 10:24 AM Temperature (8310-5) 96.5 [degF] 10/16/2024 09:59 PM Oxygen Saturation (39506-0) 96 % 10/14/2024 11:33 PM Oxygen Saturation (31169-0) 97 % 10/16/2024 08:39 AM Oxygen Saturation (60721-5) 97 % 02/03/2022 01:50 PM Body Height (8302-2) 62 [in_us] 10/19/2024 09:44 AM Temperature (8310-5) 97.4 [degF] Oxygen Saturation (92142-2) 94 % Respiratory Rate (9279-1) 16 /min Heart Rate (8867-4) 73 /min Blood Pressure Systolic (8480-6) 132 mm[Hg] Blood Pressure Diastolic (8462-4) 76 mm[Hg] Body Weight (39658-2) 209 [lb_av] Body Mass Index (43743-2) 38.22 kg/m2 10/19/2024 08:12 AM Oxygen Saturation (31481-9) 97 % 10/19/2024 08:13 AM Oxygen Saturation (94834-6) 97 % 10/19/2024 10:39 PM Oxygen Saturation (43176-7) 98 % 10/21/2024 11:27 AM Oxygen Saturation (46929-5) 97 % 10/20/2024 08:52 AM Oxygen Saturation (68448-5) 97 % 10/20/2024 10:39 PM Oxygen Saturation (25121-1) 96 % 10/22/2024 11:40 AM Oxygen Saturation (08198-5) 96 % 10/21/2024 11:27 PM Oxygen Saturation (33601-6) 96 % 10/23/2024 12:13 PM Oxygen Saturation (38767-9) 96 % 10/22/2024 10:25 PM Oxygen Saturation (50870-1) 96 % 10/23/2024 10:14 PM Oxygen Saturation (88630-8) 94 % 10/24/2024 08:24 PM Oxygen Saturation (86598-9) 98 % 10/24/2024 08:47 AM Oxygen Saturation (05507-3) 94 % 10/25/2024 07:36 AM Oxygen Saturation (41411-5) 94 % 10/26/2024 03:25 AM Oxygen Saturation (79625-4) 95 % 10/26/2024 01:29 PM Oxygen Saturation (31943-4) 98 % Body Weight (48428-8) 209.6 [lb_av] Body Mass Index (34616-9) 38.33 kg/m2 10/27/2024 07:16 AM Oxygen Saturation (10307-6) 94 % 10/26/2024 01:45 PM Temperature (8310-5) 98.1 [degF] Oxygen Saturation (03614-7) 98 % Respiratory Rate (9279-1) 18 /min Heart Rate (8867-4) 69 /min Blood Pressure Systolic (8480-6) 130 mm[Hg] Blood Pressure Diastolic (8462-4) 63 mm[Hg] 10/26/2024 11:58 PM Oxygen Saturation (31964-7) 92 % 10/27/2024 08:10 PM Oxygen Saturation (78088-9) 95 % 10/28/2024 07:27 AM Oxygen Saturation (37869-9) 96 % 10/29/2024 09:48 AM Oxygen Saturation (59152-0) 96 % 10/29/2024 12:30 AM Oxygen Saturation (35307-4) 95 % 10/29/2024 09:47 PM Oxygen Saturation (96937-5) 95 % 10/30/2024 09:22 AM Oxygen Saturation (86922-4) 95 % 10/30/2024 10:24 PM Oxygen Saturation (60911-7) 96 % 10/31/2024 07:41 AM Oxygen Saturation (30883-1) 97 % 10/31/2024 08:03 PM Oxygen Saturation (64455-5) 96 % 11/01/2024 09:18 AM Oxygen Saturation (72249-7) 99 % 11/02/2024 05:05 AM Oxygen Saturation (14472-4) 98 % 11/02/2024 09:08 AM Temperature (8310-5) 97.9 [degF] Oxygen Saturation (83311-9) 95 % Respiratory Rate (9279-1) 18 /min Heart Rate (8867-4) 76 /min Blood Pressure Systolic (8480-6) 128 mm[Hg] Blood Pressure Diastolic (8462-4) 75 mm[Hg] 11/02/2024 07:15 AM Oxygen Saturation (43801-6) 95 % 11/02/2024 09:09 AM Body Weight (86286-9) 212.2 [lb_av ] Body Mass Index (61994-0) 38.81 kg/m2 11/02/2024 10:19 PM Oxygen Saturation (87943-4) 94 % 11/03/2024 08:41 AM Oxygen Saturation (38095-1) 95 % 11/03/2024 11:06 PM Oxygen Saturation (03448-7) 96 % 11/04/2024 09:09 AM Oxygen Saturation (87955-3) 94 % 11/05/2024 09:27 AM Oxygen Saturation (26997-8) 99 % 11/04/2024 11:37 PM Oxygen Saturation (89167-5) 98 % 11/05/2024 09:57 PM Oxygen Saturation (85397-8) 97 % 11/06/2024 10:15 AM Oxygen Saturation (39425-1) 95 % 11/06/2024 11:09 PM Oxygen Saturation (10760-3) 96 % 11/07/2024 11:26 AM Oxygen Saturation (85761-1) 95 % 11/08/2024 07:00 AM Oxygen Saturation (07682-8) 97 % 11/07/2024 07:25 PM Oxygen Saturation (75009-7) 96 % 11/09/2024 10:02 AM Temperature (8310-5) 98.1 [degF] Respiratory Rate (9279-1) 18 /min Heart Rate (8867-4) 66 /min Blood Pressure Systolic (8480-6) 121 mm[Hg] Blood Pressure Diastolic (8462-4) 73 mm[Hg] Body Weight (13703-7) 211.6 [lb_av] Body Mass Index (41598-2) 38.7 kg/m2 11/08/2024 11:32 PM Oxygen Saturation (95255-6) 92 % 11/09/2024 10:01 AM Oxygen Saturation (32228-3) 94 % 11/10/2024 07:20 PM Oxygen Saturation (18731-7) 95 % 11/10/2024 07:05 AM Oxygen Saturation (26302-0) 98 % 11/10/2024 03:52 AM Oxygen Saturation (25864-7) 98 % 11/11/2024 07:01 AM Oxygen Saturation (47457-3) 97 % 11/12/2024 10:51 AM Oxygen Saturation (70576-2) 96 % 11/12/2024 12:56 AM Oxygen Saturation (86541-9) 96 % 11/12/2024 10:25 PM Oxygen Saturation (53160-1) 95 % 11/13/2024 07:37 AM Oxygen Saturation (74541-5) 97 % 11/13/2024 10:29 PM Oxygen Saturation (32874-4) 96 % 11/14/2024 09:18 AM Oxygen Saturation (20758-6) 95 % 11/14/2024 07:14 PM Oxygen Saturation (85433-5) 97 % 11/15/2024 09:48 AM Oxygen Saturation (42465-1) 97 % 11/15/2024 08:59 PM Oxygen Saturation (59234-9) 95 % 11/16/2024 09:01 AM Temperature (8310-5) 97.5 [degF] Oxygen Saturation (32047-9) 95 % Respiratory Rate (9279-1) 16 /min Heart Rate (8867-4) 61 /min Blood Pressure Systolic (8480-6) 126 mm[Hg] Blood Pressure Diastolic (8462-4) 67 mm[Hg] 11/16/2024 09:52 PM Oxygen Saturation (43665-9) 99 % 11/17/2024 06:26 PM Oxygen Saturation (46926-0) 95 % 11/17/2024 09:17 PM Oxygen Saturation (49646-3) 96 % 11/18/2024 08:21 AM Oxygen Saturation (54297-9) 94 % 11/18/2024 10:57 PM Oxygen Saturation (47323-0) 95 % 11/19/2024 10:59 AM Oxygen Saturation (34169-8) 94 % 11/19/2024 10:57 PM Oxygen Saturation (38547-8) 95 % 11/20/2024 10:09 PM Oxygen Saturation (69976-8) 94 % 11/20/2024 09:13 AM Oxygen Saturation (66236-9) 95 % 11/21/2024 07:48 AM Oxygen Saturation (90931-2) 94 % 11/22/2024 07:06 AM Oxygen Saturation (60009-9) 96 % 11/21/2024 08:04 PM Oxygen Saturation (45470-9) 97 % 11/23/2024 04:07 AM Oxygen Saturation (73579-7) 94 % 11/23/2024 08:44 AM Oxygen Saturation (68913-9) 93 % 11/23/2024 09:39 AM Temperature (8310-5) 98.2 [degF] Oxygen Saturation (81179-6) 93 % Respiratory Rate (9279-1) 16 /min Heart Rate (8867-4) 69 /min Blood Pressure Systolic (8480-6) 131 mm[Hg] Blood Pressure Diastolic (8462-4) 68 mm[Hg] 11/23/2024 07:44 PM Oxygen Saturation (67798-4) 96 % 11/24/2024 10:36 AM Oxygen Saturation (59120-8) 92 % 11/25/2024 08:26 AM Oxygen Saturation (40226-0) 96 % 11/24/2024 08:01 PM Oxygen Saturation (69573-8) 98 % 11/26/2024 10:19 PM Oxygen Saturation (90085-4) 95 % 11/25/2024 11:45 PM Oxygen Saturation (90422-1) 95 % 11/26/2024 11:49 AM Oxygen Saturation (41575-2) 94 % 11/27/2024 09:35 PM Oxygen Saturation (17950-2) 95 % 11/27/2024 03:23 PM Oxygen Saturation (57670-2) 93 % 11/28/2024 07:15 PM Oxygen Saturation (70640-5) 97 % 11/28/2024 09:38 AM Oxygen Saturation (06751-7) 98 % 11/29/2024 12:34 PM Oxygen Saturation (03648-0) 93 % 11/30/2024 09:49 AM Temperature (8310-5) 97.7 [degF] Oxygen Saturation (16990-6) 97 % Respiratory Rate (9279-1) 17 /min Heart Rate (8867-4) 101 /min Blood Pressure Systolic (8480-6) 105 mm[Hg] Blood Pressure Diastolic (8462-4) 49 mm[Hg] 11/30/2024 09:37 AM Oxygen Saturation (34593-6) 97 % 11/30/2024 02:48 AM Oxygen Saturation (26798-6) 97 % 12/01/2024 09:47 AM Oxygen Saturation (11437-1) 98 % 11/30/2024 07:14 PM Oxygen Saturation (43899-7) 95 % 12/02/2024 09:07 AM Oxygen Saturation (64214-0) 96 % 12/01/2024 09:45 PM Oxygen Saturation (67950-9) 96 % 12/02/2024 08:40 PM Oxygen Saturation (28859-2) 95 % 12/03/2024 08:48 AM Oxygen Saturation (48671-9) 94 % 12/04/2024 12:39 AM Oxygen Saturation (91754-3) 96 % 12/04/2024 09:02 AM Oxygen Saturation (92031-3) 95 % 12/05/2024 12:07 PM Oxygen Saturation (63068-2) 96 % 12/04/2024 11:23 PM Oxygen Saturation (11211-9) 99 % 12/06/2024 09:19 AM Oxygen Saturation (13159-3) 97 % 12/05/2024 07:34 PM Oxygen Saturation (80964-3) 95 % 12/06/2024 08:52 PM Oxygen Saturation (96859-8) 94 % 12/08/2024 05:00 PM Oxygen Saturation (97787-1) 94 % 12/07/2024 06:44 PM Temperature (8310-5) 97.3 [degF] Oxygen Saturation (19131-0) 98 % Respiratory Rate (9279-1) 18 /min Heart Rate (8867-4) 73 /min Blood Pressure Systolic (8480-6) 144 mm[Hg] Blood Pressure Diastolic (8462-4) 76 mm[Hg] 12/07/2024 06:42 PM Oxygen Saturation (10539-9) 98 % 12/07/2024 09:39 PM Oxygen Saturation (73897-3) 95 % 12/08/2024 04:15 PM Oxygen Saturation (42273-7) 94 % 12/09/2024 03:49 PM Oxygen Saturation (56310-6) 95 % 12/08/2024 07:08 PM Oxygen Saturation (64157-4) 95 % 12/10/2024 01:27 PM Body Weight (51887-7) 219.4 [lb_av ] Body Mass Index (65699-6) 40.12 kg/m2 12/10/2024 07:56 AM Oxygen Saturation (71022-5) 99 % 12/09/2024 11:32 PM Oxygen Saturation (60836-4) 93 % 12/11/2024 01:46 PM Oxygen Saturation (40042-0) 94 % 12/10/2024 11:18 PM Oxygen Saturation (28903-7) 97 % 12/11/2024 08:13 PM Oxygen Saturation (19891-2) 95 % 12/12/2024 07:59 AM Oxygen Saturation (05374-2) 94 % 12/12/2024 11:29 AM Body Weight (68790-5) 220.6 [lb_av ] Body Mass Index (20343-2) 40.34 kg/m2 12/12/2024 07:20 PM Oxygen Saturation (78787-3) 96 % 12/13/2024 04:29 PM Body Weight (98117-9) 220.4 [lb_av ] Body Mass Index (82469-4) 40.31 kg/m2 12/13/2024 04:12 PM Oxygen Saturation (30450-3) 93 % 12/14/2024 09:01 AM Oxygen Saturation (85469-6) 95 % 12/13/2024 08:48 PM Oxygen Saturation (15907-3) 93 % 12/14/2024 10:52 AM Body Weight (55718-3) 220.2 [lb_av ] Body Mass Index (71857-6) 40.27 kg/m2 12/14/2024 09:02 AM Temperature (8310-5) 97.4 [degF] Respiratory Rate (9279-1) 18 /min Heart Rate (8867-4) 72 /min Blood Pressure Systolic (8480-6) 146 mm[Hg] Blood Pressure Diastolic (8462-4) 72 mm[Hg] 12/14/2024 08:25 PM Oxygen Saturation (33712-0) 96 % 12/15/2024 03:12 PM Oxygen Saturation (01661-5) 96 % Body Weight (22776-2) 221.4 [lb_av] Body Mass Index (36771-2) 40.49 kg/m2 12/15/2024 10:05 PM Oxygen Saturation (56482-4) 95 % 12/16/2024 08:08 AM Oxygen Saturation (65599-3) 93 % 12/16/2024 06:59 PM Oxygen Saturation (13010-4) 94 % 12/17/2024 11:16 AM Oxygen Saturation (73659-6) 97 % 12/17/2024 08:35 PM Oxygen Saturation (56760-9) 95 % 12/18/2024 08:44 AM Oxygen Saturation (89693-9) 92 % 12/18/2024 08:59 PM Oxygen Saturation (43091-4) 95 % 12/19/2024 08:44 AM Oxygen Saturation (65101-1) 97 % 12/20/2024 09:31 AM Oxygen Saturation (55450-5) 94 % 12/19/2024 07:17 PM Oxygen Saturation (99442-1) 94 % 12/21/2024 10:56 PM Oxygen Saturation (83424-8) 94 % 12/21/2024 12:13 PM Temperature (8310-5) 97.5 [degF] Oxygen Saturation (75421-0) 95 % Respiratory Rate (9279-1) 18 /min Heart Rate (8867-4) 66 /min Blood Pressure Systolic (8480-6) 123 mm[Hg] Blood Pressure Diastolic (8462-4) 65 mm[Hg] 12/21/2024 01:27 AM Oxygen Saturation (28620-6) 92 % 12/22/2024 07:43 PM Oxygen Saturation (25203-4) 94 % 12/22/2024 12:01 PM Oxygen Saturation (31911-3) 94 % 12/23/2024 07:50 PM Oxygen Saturation (33355-1) 98 % 12/23/2024 05:05 PM Oxygen Saturation (81298-0) 94 % 12/24/2024 07:26 PM Oxygen Saturation (50073-2) 98 % 12/24/2024 03:07 PM Oxygen Saturation (93959-4) 97 % 12/25/2024 07:34 PM Oxygen Saturation (03965-9) 100 % 12/25/2024 04:11 PM Oxygen Saturation (27864-8) 96 % 12/26/2024 08:32 PM Oxygen Saturation (56560-1) 94 % 12/26/2024 12:31 PM Oxygen Saturation (77519-3) 95 % 12/27/2024 11:13 AM Oxygen Saturation (51375-0) 95 % 12/28/2024 01:00 AM Oxygen Saturation (46803-5) 95 % 12/28/2024 10:13 AM Temperature (8310-5) 97.6 [degF] Oxygen Saturation (46483-7) 95 % Respiratory Rate (9279-1) 18 /min Heart Rate (8867-4) 77 /min Blood Pressure Systolic (8480-6) 171 mm[Hg] Blood Pressure Diastolic (8462-4) 85 mm[Hg] 12/28/2024 10:12 AM Oxygen Saturation (57801-5) 95 % 12/27/2024 04:54 PM Oxygen Saturation (30417-8) 96 % 12/28/2024 10:01 PM Oxygen Saturation (31028-5) 98 % 12/29/2024 11:00 AM Oxygen Saturation (08892-0) 96 % 12/30/2024 12:32 AM Oxygen Saturation (79326-8) 95 % 12/30/2024 07:59 AM Oxygen Saturation (90785-7) 93 % 12/30/2024 11:36 PM Oxygen Saturation (26557-3) 96 % 12/31/2024 11:28 AM Oxygen Saturation (12678-3) 97 % 01/01/2025 12:34 AM Oxygen Saturation (69077-9) 95 % 01/01/2025 10:57 AM Oxygen Saturation (33189-7) 94 % 01/01/2025 11:21 PM Oxygen Saturation (72348-7) 96 % 01/02/2025 09:04 AM Oxygen Saturation (04626-7) 92 % 01/02/2025 07:43 PM Oxygen Saturation (50992-5) 97 % 01/03/2025 09:45 AM Oxygen Saturation (99549-4) 97 % 01/04/2025 04:28 AM Oxygen Saturation (12210-6) 96 % 01/04/2025 08:49 AM Oxygen Saturation (89281-3) 94 % 01/04/2025 08:50 AM Temperature (8310-5) 97 [degF] Respiratory Rate (9279-1) 18 /min Heart Rate (8867-4) 85 /min Blood Pressure Systolic (8480-6) 105 mm[Hg] Blood Pressure Diastolic (8462-4) 79 mm[Hg] 01/04/2025 09:18 PM Oxygen Saturation (11874-0) 96 % 01/05/2025 08:43 PM Oxygen Saturation (60787-8) 96 % 01/05/2025 06:23 PM Oxygen Saturation (08946-5) 96 % 01/06/2025 10:10 PM Oxygen Saturation (06483-0) 95 % 01/06/2025 08:39 AM Oxygen Saturation (63156-5) 96 % 01/07/2025 08:14 AM Oxygen Saturation (58535-2) 97 % 01/08/2025 08:10 AM Oxygen Saturation (67280-1) 99 % 01/07/2025 09:47 PM Oxygen Saturation (05958-1) 96 % 01/07/2025 09:46 PM Body Weight (52377-6) 231.8 [lb_av ] Body Mass Index (34890-8) 42.39 kg/m2 01/08/2025 11:42 PM Oxygen Saturation (21970-9) 96 % 01/09/2025 03:39 PM Body Weight (91741-4) 233.6 [lb_av ] Body Mass Index (41676-6) 42.72 kg/m2 01/09/2025 08:28 AM Oxygen Saturation (93569-7) 94 % 01/09/2025 07:41 PM Oxygen Saturation (16776-2) 95 % 01/10/2025 09:42 AM Oxygen Saturation (49415-0) 93 % 01/10/2025 05:52 PM Body Weight (69710-8) 210.6 [lb_av ] Body Mass Index (60334-2) 38.52 kg/m2 01/11/2025 05:16 AM Oxygen Saturation (52294-4) 93 % 01/11/2025 10:05 AM Body Weight (91406-9) 233.6 [lb_av ] Body Mass Index (32912-5) 42.72 kg/m2 01/11/2025 09:34 AM Temperature (8310-5) 98 [degF] Oxygen Saturation (85243-0) 96 % Respiratory Rate (9279-1) 17 /min Heart Rate (8867-4) 102 /min Blood Pressure Systolic (8480-6) 103 mm[Hg] Blood Pressure Diastolic (8462-4) 65 mm[Hg] 01/12/2025 07:34 AM Oxygen Saturation (43030-6) 96 % 01/11/2025 08:15 PM Oxygen Saturation (13407-0) 97 % 01/12/2025 07:35 AM Body Weight (74738-9) 233.4 [lb_av ] Body Mass Index (28072-2) 42.68 kg/m2 01/13/2025 09:37 AM Oxygen Saturation (64407-8) 94 % 01/12/2025 07:54 PM Oxygen Saturation (92438-2) 93 % 01/14/2025 12:48 AM Oxygen Saturation (57610-3) 95 % 01/14/2025 08:15 AM Oxygen Saturation (41766-9) 96 % 01/15/2025 08:36 AM Oxygen Saturation (56368-6) 95 % 01/14/2025 11:33 PM Oxygen Saturation (27393-6) 99 % 01/15/2025 08:35 AM Oxygen Saturation (42854-6) 95 % 01/15/2025 10:54 PM Oxygen Saturation (43394-1) 96 % 01/16/2025 10:50 AM Oxygen Saturation (14187-5) 96 % 01/16/2025 07:35 PM Oxygen Saturation (21473-5) 95 % 01/17/2025 08:10 AM Oxygen Saturation (50290-0) 97 % 01/17/2025 07:29 PM Oxygen Saturation (38010-1) 98 % 01/18/2025 10:35 AM Oxygen Saturation (91420-4) 99 % Respiratory Rate (9279-1) 16 /min Heart Rate (8867-4) 65 /min Blood Pressure Systolic (8480-6) 108 mm[Hg] Blood Pressure Diastolic (8462-4) 62 mm[Hg] 01/18/2025 10:36 AM Temperature (8310-5) 97.3 [degF] 01/18/2025 07:51 PM Oxygen Saturation (09435-0) 97 % 01/19/2025 06:28 PM Oxygen Saturation (69011-5) 94 % 01/19/2025 08:04 PM Oxygen Saturation (69242-2) 96 % 01/20/2025 11:17 AM Oxygen Saturation (67806-8) 95 % 01/21/2025 12:54 AM Oxygen Saturation (30896-1) 96 % 01/21/2025 08:32 AM Oxygen Saturation (66495-2) 95 % 01/21/2025 08:22 PM Oxygen Saturation (01959-1) 97 % 01/22/2025 12:10 PM Oxygen Saturation (63577-5) 95 % 01/22/2025 07:34 PM Oxygen Saturation (17774-9) 94 % 01/23/2025 09:54 AM Oxygen Saturation (31121-5) 94 % 01/23/2025 08:27 PM Oxygen Saturation (40244-7) 96 % 01/24/2025 06:59 AM Oxygen Saturation (59917-3) 97 % 01/25/2025 09:02 AM Temperature (8310-5) 98.3 [degF] Oxygen Saturation (73334-0) 92 % Respiratory Rate (9279-1) 18 /min Heart Rate (8867-4) 83 /min Blood Pressure Systolic (8480-6) 137 mm[Hg] Blood Pressure Diastolic (8462-4) 63 mm[Hg] 01/24/2025 07:26 PM Oxygen Saturation (30256-7) 97 % 01/25/2025 09:02 PM Oxygen Saturation (89372-0) 98 % 01/26/2025 07:07 AM Oxygen Saturation (12723-4) 97 % 01/26/2025 08:03 PM Oxygen Saturation (97517-8) 96 % 01/27/2025 08:54 AM Oxygen Saturation (11266-2) 90 % 01/27/2025 10:46 PM Oxygen Saturation (83012-7) 96 % 01/28/2025 08:49 AM Oxygen Saturation (12431-1) 96 % 01/28/2025 10:29 PM Oxygen Saturation (97774-0) 95 % 01/29/2025 09:25 AM Oxygen Saturation (13376-7) 98 % 01/29/2025 09:03 PM Oxygen Saturation (56913-3) 98 % 01/30/2025 09:43 AM Oxygen Saturation (54666-2) 98 % 01/30/2025 07:55 PM Oxygen Saturation (75861-9) 99 % 01/31/2025 07:30 AM Oxygen Saturation (10817-6) 98 % 01/31/2025 11:33 AM Oxygen Saturation (78127-8) 98 % 01/31/2025 07:24 PM Oxygen Saturation (34183-1) 97 % 02/01/2025 05:18 PM Temperature (8310-5) 97.6 [degF] Respiratory Rate (9279-1) 18 /min Heart Rate (8867-4) 75 /min Blood Pressure Systolic (8480-6) 117 mm[Hg] Blood Pressure Diastolic (8462-4) 77 mm[Hg] 02/01/2025 05:17 PM Oxygen Saturation (55674-5) 95 % 02/01/2025 09:26 PM Oxygen Saturation (60942-1) 96 % 02/02/2025 07:28 PM Oxygen Saturation (68476-2) 98 % 02/02/2025 06:17 PM Oxygen Saturation (62766-3) 96 % 02/03/2025 07:18 AM Oxygen Saturation (77757-3) 94 % 02/03/2025 09:12 PM Oxygen Saturation (75327-0) 97 % 02/04/2025 08:49 AM Oxygen Saturation (82746-6) 96 % 02/04/2025 09:32 PM Oxygen Saturation (24728-5) 94 % 02/05/2025 08:00 AM Oxygen Saturation (73022-8) 98 % 02/06/2025 08:41 AM Oxygen Saturation (50302-0) 96 % 02/06/2025 07:25 PM Oxygen Saturation (42485-6) 96 % 02/07/2025 08:11 AM Oxygen Saturation (13886-6) 92 % Body Weight (73910-6) 230.8 [lb_av] Body Mass Index (48705-1) 42.21 kg/m2 02/07/2025 09:25 PM Oxygen Saturation (72068-2) 97 % 02/08/2025 08:55 AM Temperature (8310-5) 96.9 [degF] Oxygen Saturation (51062-4) 97 % Respiratory Rate (9279-1) 18 /min Heart Rate (8867-4) 75 /min Blood Pressure Systolic (8480-6) 127 mm[Hg] Blood Pressure Diastolic (8462-4) 77 mm[Hg] 02/08/2025 08:54 AM Oxygen Saturation (96997-5) 95 % 02/08/2025 09:34 PM Oxygen Saturation (14085-8) 97 % 02/09/2025 07:31 AM Oxygen Saturation (00254-4) 94 % 02/09/2025 11:21 PM Oxygen Saturation (59326-2) 96 % 02/10/2025 09:02 AM Oxygen Saturation (28066-5) 96 % 02/10/2025 08:01 PM Oxygen Saturation (28869-5) 97 % 02/11/2025 03:36 PM Oxygen Saturation (45779-5) 94 % 02/11/2025 10:23 PM Oxygen Saturation (22262-0) 95 % 02/12/2025 09:42 AM Oxygen Saturation (51562-3) 98 % 02/12/2025 09:46 PM Oxygen Saturation (55010-3) 95 % 02/13/2025 11:08 AM Oxygen Saturation (35789-8) 96 % 02/13/2025 09:14 PM Oxygen Saturation (10711-4) 91 % 02/14/2025 08:49 AM Oxygen Saturation (23286-6) 91 % 02/14/2025 10:01 PM Oxygen Saturation (32882-6) 97 % 02/15/2025 05:09 PM Temperature (8310-5) 98.2 [degF] Respiratory Rate (9279-1) 16 /min Heart Rate (8867-4) 92 /min Blood Pressure Systolic (8480-6) 185 mm[Hg] Blood Pressure Diastolic (8462-4) 96 mm[Hg] 02/15/2025 05:08 PM Oxygen Saturation (08993-4) 93 % 02/15/2025 09:21 PM Oxygen Saturation (74624-3) 99 % 02/16/2025 05:07 PM Oxygen Saturation (57181-6) 95 % 02/16/2025 08:22 PM Oxygen Saturation (11130-8) 95 % 02/17/2025 09:37 AM Oxygen Saturation (77841-6) 95 % 02/17/2025 09:26 PM Oxygen Saturation (06339-9) 91 % 02/18/2025 01:55 PM Oxygen Saturation (39254-5) 96 % 02/18/2025 10:45 PM Oxygen Saturation (12739-6) 95 % 02/19/2025 10:11 AM Oxygen Saturation (71745-0) 90 % 02/19/2025 07:43 PM Oxygen Saturation (56187-1) 94 % 02/20/2025 04:42 PM Oxygen Saturation (03226-9) 96 % 02/20/2025 07:56 PM Oxygen Saturation (11310-0) 94 % 02/21/2025 03:45 PM Oxygen Saturation (25260-1) 95 % 02/22/2025 09:37 AM Temperature (8310-5) 96.2 [degF] Respiratory Rate (9279-1) 20 /min Heart Rate (8867-4) 83 /min Blood Pressure Systolic (8480-6) 147 mm[Hg] Blood Pressure Diastolic (8462-4) 73 mm[Hg] 02/21/2025 09:01 PM Oxygen Saturation (25503-1) 98 % 02/22/2025 09:36 AM Oxygen Saturation (33427-3) 99 % 02/22/2025 10:36 PM Oxygen Saturation (29543-3) 96 % 02/23/2025 09:41 AM Oxygen Saturation (98402-4) 90 % 02/23/2025 10:24 PM Oxygen Saturation (12152-1) 93 % 02/24/2025 09:03 AM Oxygen Saturation (39545-1) 94 % 02/24/2025 08:06 PM Oxygen Saturation (38386-3) 94 % 02/25/2025 08:59 AM Oxygen Saturation (35670-4) 96 % 02/25/2025 11:34 PM Oxygen Saturation (76152-1) 94 % 02/26/2025 09:47 AM Oxygen Saturation (54770-0) 95 % 02/26/2025 11:22 PM Oxygen Saturation (76910-3) 96 % 02/27/2025 07:55 AM Oxygen Saturation (06923-1) 92 % 02/27/2025 07:12 PM Oxygen Saturation (52443-3) 95 % 02/28/2025 11:27 AM Oxygen Saturation (47480-8) 96 % 02/28/2025 04:18 PM Oxygen Saturation (24139-9) 96 % 02/28/2025 08:19 PM Oxygen Saturation (35988-1) 96 % 03/01/2025 11:47 AM Body Weight (34220-8) 234.6 [lb_av ] Body Mass Index (08050-6) 42.9 kg/m2 03/01/2025 11:01 AM Temperature (8310-5) 98.5 [degF] Oxygen Saturation (34402-0) 94 % Respiratory Rate (9279-1) 17 /min Heart Rate (8867-4) 68 /min Blood Pressure Systolic (8480-6) 132 mm[Hg] Blood Pressure Diastolic (8462-4) 71 mm[Hg] 03/02/2025 12:10 AM Oxygen Saturation (72534-3) 99 % 03/02/2025 05:19 PM Oxygen Saturation (98816-0) 95 % 03/02/2025 08:11 PM Oxygen Saturation (26725-6) 100 % 03/03/2025 11:34 AM Oxygen Saturation (79536-2) 98 % 03/03/2025 10:35 PM Oxygen Saturation (10595-8) 95 % 03/04/2025 08:11 AM Oxygen Saturation (82290-1) 94 % 03/05/2025 08:13 AM Oxygen Saturation (30957-0) 93 % 03/04/2025 08:19 PM Oxygen Saturation (63166-1) 95 % 03/05/2025 08:12 AM Oxygen Saturation (35270-3) 93 % 03/06/2025 12:29 AM Oxygen Saturation (49113-1) 95 % 03/06/2025 09:29 AM Oxygen Saturation (74282-7) 96 % 03/06/2025 07:22 PM Oxygen Saturation (71441-5) 98 % 03/07/2025 03:19 PM Oxygen Saturation (62277-8) 98 % 03/07/2025 07:37 PM Oxygen Saturation (41216-9) 97 % 03/07/2025 10:00 PM Oxygen Saturation (07446-3) 97 % 03/08/2025 09:37 AM Temperature (8310-5) 97.6 [degF] Oxygen Saturation (09838-8) 94 % Respiratory Rate (9279-1) 16 /min Heart Rate (8867-4) 76 /min Blood Pressure Systolic (8480-6) 134 mm[Hg] Blood Pressure Diastolic (8462-4) 63 mm[Hg] 03/09/2025 04:17 AM Oxygen Saturation (03006-3) 97 % 03/09/2025 08:37 AM Body Weight (43469-0) 236.6 [lb_av ] Body Mass Index (18756-3) 43.27 kg/m2 03/09/2025 08:36 AM Oxygen Saturation (20917-2) 93 % 03/09/2025 07:22 PM Oxygen Saturation (67206-5) 94 % 03/10/2025 07:10 AM Oxygen Saturation (82950-1) 99 % 03/10/2025 10:21 PM Oxygen Saturation (71765-1) 97 % 03/10/2025 11:22 PM Oxygen Saturation (20193-0) 97 % 03/11/2025 03:10 PM Body Weight (86665-1) 237.4 [lb_av ] Body Mass Index (51568-1) 43.42 kg/m2 03/11/2025 12:43 PM Oxygen Saturation (81647-8) 94 % 03/11/2025 11:04 PM Oxygen Saturation (62942-8) 96 % 03/12/2025 03:16 PM Body Weight (01674-0) 236 [lb_av] Body Mass Index (86374-8) 43.16 kg/m2 03/12/2025 10:26 AM Oxygen Saturation (93260-4) 97 % 03/12/2025 10:12 PM Oxygen Saturation (31928-9) 97 % 03/13/2025 02:01 PM Body Weight (48447-4) 234.8 [lb_av ] Body Mass Index (78122-7) 42.94 kg/m2 03/13/2025 11:34 AM Oxygen Saturation (71063-8) 96 % 07/11/2025 08:13 AM Oxygen Saturation (60648-8) 96 % 07/14/2025 10:32 AM Oxygen Saturation (88995-5) 93 % 07/10/2025 09:57 PM Oxygen Saturation (76457-4) 97 % 07/12/2025 01:00 PM Temperature (8310-5) 98 [degF] Respiratory Rate (9279-1) 17 /min Heart Rate (8867-4) 80 /min Blood Pressure Systolic (8480-6) 124 mm[Hg] Blood Pressure Diastolic (8462-4) 63 mm[Hg] 06/15/2025 09:09 AM Body Weight (67405-8) 237 [lb_av] Body Mass Index (67885-4) 43.34 kg/m2 07/09/2025 07:19 AM Oxygen Saturation (14428-4) 99 % 07/05/2025 10:22 AM Temperature (8310-5) 97 [degF] Respiratory Rate (9279-1) 17 /min Heart Rate (8867-4) 82 /min Blood Pressure Systolic (8480-6) 116 mm[Hg] Blood Pressure Diastolic (8462-4) 60 mm[Hg] 07/10/2025 09:06 AM Oxygen Saturation (39195-9) 98 % 07/10/2025 12:01 AM Oxygen Saturation (20308-9) 97 % 06/13/2025 12:56 PM Body Weight (67827-2) 236.7 [lb_av ] Body Mass Index (54017-2) 43.29 kg/m2 07/13/2025 03:41 PM Oxygen Saturation (26133-8) 95 % 06/14/2025 08:58 AM Body Weight (66400-5) 237.1 [lb_av ] Body Mass Index (07796-4) 43.36 kg/m2 07/13/2025 09:51 PM Oxygen Saturation (05405-3) 96 % 07/12/2025 12:17 AM Oxygen Saturation (70411-3) 98 % 07/10/2025 08:58 AM Body Weight (84514-6) 239.6 [lb_av ] Body Mass Index (35238-3) 43.82 kg/m2 07/12/2025 09:00 PM Oxygen Saturation (59601-0) 98 % 06/28/2025 11:13 AM Temperature (8310-5) 96.9 [degF] Respiratory Rate (9279-1) 18 /min Heart Rate (8867-4) 72 /min Blood Pressure Systolic (8480-6) 120 mm[Hg] Blood Pressure Diastolic (8462-4) 66 mm[Hg] 06/21/2025 10:00 AM Temperature (8310-5) 97 [degF] Respiratory Rate (9279-1) 16 /min Heart Rate (8867-4) 84 /min Blood Pressure Systolic (8480-6) 146 mm[Hg] Blood Pressure Diastolic (8462-4) 78 mm[Hg] 06/14/2025 07:23 AM Temperature (8310-5) 97.1 [degF] Respiratory Rate (9279-1) 14 /min Heart Rate (8867-4) 66 /min Blood Pressure Systolic (8480-6) 125 mm[Hg] Blood Pressure Diastolic (8462-4) 63 mm[Hg] 06/09/2025 08:18 AM Body Weight (36937-2) 237.2 [lb_av ] Body Mass Index (86914-4) 43.38 kg/m2 06/12/2025 09:53 AM Body Weight (04663-3) 236 [lb_av] Body Mass Index (66751-9) 43.16 kg/m2 04/20/2025 01:58 PM Body Weight (34516-6) 226 [lb_av] Body Mass Index (29910-6) 41.33 kg/m2 05/17/2025 09:16 AM Respiratory Rate (9279-1) 18 /min Heart Rate (8867-4) 66 /min Blood Pressure Systolic (8480-6) 130 mm[Hg] Blood Pressure Diastolic (8462-4) 62 mm[Hg] 05/06/2025 05:02 PM Body Weight (10356-1) 224.2 [lb_av ] Body Mass Index (43194-2) 41 kg/m2 04/30/2025 11:45 AM Body Weight (54567-8) 226 [lb_av] Body Mass Index (64876-8) 41.33 kg/m2 05/24/2025 04:17 PM Body Weight (75387-5) 230.2 [lb_av ] Body Mass Index (72555-4) 42.1 kg/m2 05/09/2025 09:19 AM Body Weight (24948-4) 228 [lb_av] Body Mass Index (78600-7) 41.7 kg/m2 06/09/2025 01:44 AM Temperature (8310-5) 98 [degF] 04/29/2025 06:00 PM Body Weight (24630-5) 225 [lb_av] Body Mass Index (73848-6) 41.15 kg/m2 05/05/2025 11:28 AM Body Weight (36102-2) 223 [lb_av] Body Mass Index (04327-1) 40.78 kg/m2 05/24/2025 09:12 AM Temperature (8310-5) 97.3 [degF] Respiratory Rate (9279-1) 18 /min Heart Rate (8867-4) 62 /min Blood Pressure Systolic (8480-6) 131 mm[Hg] Blood Pressure Diastolic (8462-4) 73 mm[Hg] 05/07/2025 09:10 AM Body Weight (12642-5) 228.2 [lb_av ] Body Mass Index (63937-8) 41.73 kg/m2 06/07/2025 09:34 AM Temperature (8310-5) 96.7 [degF] Respiratory Rate (9279-1) 18 /min Heart Rate (8867-4) 68 /min Blood Pressure Systolic (8480-6) 112 mm[Hg] Blood Pressure Diastolic (8462-4) 63 mm[Hg] 05/31/2025 11:58 AM Temperature (8310-5) 97.6 [degF] Respiratory Rate (9279-1) 20 /min Heart Rate (8867-4) 64 /min Blood Pressure Systolic (8480-6) 124 mm[Hg] Blood Pressure Diastolic (8462-4) 75 mm[Hg] 05/23/2025 06:35 PM Temperature (8310-5) 97.1 [degF] 05/10/2025 08:33 AM Respiratory Rate (9279-1) 15 /min Heart Rate (8867-4) 95 /min Blood Pressure Systolic (8480-6) 117 mm[Hg] Blood Pressure Diastolic (8462-4) 67 mm[Hg] 05/01/2025 01:07 PM Body Weight (66132-3) 224.8 [lb_av ] Body Mass Index (26060-2) 41.11 kg/m2 07/14/2025 11:32 PM Oxygen Saturation (70893-7) 96 % 07/15/2025 08:49 AM Oxygen Saturation (53786-1) 95 % 07/16/2025 12:23 AM Oxygen Saturation (92131-2) 94 % 07/16/2025 04:58 PM Oxygen Saturation (92934-5) 99 % 07/16/2025 11:23 AM Oxygen Saturation (91286-6) 96 % 07/17/2025 12:00 AM Oxygen Saturation (18463-1) 98 % 07/17/2025 09:49 AM Oxygen Saturation (13258-5) 90 % 07/17/2025 08:59 PM Oxygen Saturation (89578-1) 94 % 07/18/2025 08:57 AM Oxygen Saturation (37186-1) 97 % 07/18/2025 07:52 PM Oxygen Saturation (58551-1) 96 % 07/19/2025 10:23 AM Temperature (8310-5) 97.8 [degF] Oxygen Saturation (87931-5) 95 % Respiratory Rate (9279-1) 16 /min Heart Rate (8867-4) 85 /min Blood Pressure Systolic (8480-6) 109 mm[Hg] Blood Pressure Diastolic (8462-4) 50 mm[Hg] 07/19/2025 10:22 AM Oxygen Saturation (61353-3) 95 % 07/19/2025 08:51 PM Oxygen Saturation (89349-9) 96 % 07/20/2025 11:43 AM Oxygen Saturation (41692-4) 97 % 07/20/2025 08:29 PM Oxygen Saturation (65974-4) 95 % 07/21/2025 11:28 PM Oxygen Saturation (35242-3) 94 % 07/22/2025 10:20 AM Oxygen Saturation (43263-0) 97 % 07/22/2025 10:12 PM Oxygen Saturation (75735-5) 96 % 07/23/2025 10:40 AM Oxygen Saturation (97357-6) 93 % 07/24/2025 12:45 AM Oxygen Saturation (21402-8) 95 % 07/24/2025 05:11 PM Oxygen Saturation (92779-1) 93 % 07/24/2025 09:50 PM Oxygen Saturation (11614-4) 90 % 07/25/2025 09:52 AM Oxygen Saturation (08936-4) 98 % 07/25/2025 09:25 PM Oxygen Saturation (44973-8) 97 % 07/26/2025 11:45 AM Oxygen Saturation (66282-8) 97 % 07/27/2025 01:24 AM Oxygen Saturation (70581-5) 97 % 07/27/2025 12:19 PM Oxygen Saturation (87270-0) 95 % 07/27/2025 10:43 PM Oxygen Saturation (58132-7) 95 % 07/28/2025 09:46 AM Oxygen Saturation (25755-0) 94 % 07/28/2025 11:25 PM Oxygen Saturation (61730-9) 97 % 07/29/2025 12:17 PM Oxygen Saturation (32943-1) 94 % 07/29/2025 09:28 PM Oxygen Saturation (15577-5) 96 % 07/30/2025 07:06 PM Oxygen Saturation (82176-3) 99 % 07/30/2025 09:54 PM Oxygen Saturation (83988-4) 97 % 07/31/2025 10:16 AM Oxygen Saturation (19478-1) 94 % 07/31/2025 11:00 PM Oxygen Saturation (67887-5) 96 % 08/01/2025 10:30 PM Oxygen Saturation (08366-0) 92 % 08/01/2025 06:35 PM Oxygen Saturation (43439-1) 93 % 08/02/2025 10:56 AM Temperature (8310-5) 98.3 [degF] Oxygen Saturation (94549-9) 93 % Respiratory Rate (9279-1) 18 /min Heart Rate (8867-4) 61 /min Blood Pressure Systolic (8480-6) 101 mm[Hg] Blood Pressure Diastolic (8462-4) 76 mm[Hg] 08/02/2025 11:54 PM Oxygen Saturation (37755-8) 95 % 08/03/2025 12:29 PM Oxygen Saturation (38698-8) 98 % 08/04/2025 09:24 AM Oxygen Saturation (83283-1) 94 % 08/04/2025 11:35 PM Oxygen Saturation (85061-4) 96 % 08/05/2025 10:30 AM Oxygen Saturation (11800-3) 99 % 08/05/2025 09:55 PM Oxygen Saturation (17636-3) 98 % 08/06/2025 08:28 AM Oxygen Saturation (22245-4) 96 % 08/06/2025 09:32 PM Oxygen Saturation (27771-9) 95 % 08/07/2025 10:43 AM Oxygen Saturation (68385-5) 98 % 08/07/2025 07:38 PM Oxygen Saturation (98899-2) 98 % 08/08/2025 11:07 AM Oxygen Saturation (27906-0) 99 % 08/09/2025 02:36 AM Oxygen Saturation (51990-9) 94 % 08/09/2025 12:15 PM Body Weight (53354-7) 219.4 [lb_av ] Body Mass Index (73176-6) 40.12 kg/m2 08/09/2025 10:27 AM Oxygen Saturation (36008-2) 93 % Respiratory Rate (9279-1) 15 /min Heart Rate (8867-4) 62 /min Blood Pressure Systolic (8480-6) 131 mm[Hg] Blood Pressure Diastolic (8462-4) 73 mm[Hg] 08/09/2025 10:45 PM Oxygen Saturation (62403-9) 98 % 08/10/2025 03:52 PM Body Weight (86159-9) 220 [lb_av] Body Mass Index (50166-6) 40.23 kg/m2 08/10/2025 10:45 AM Oxygen Saturation (69201-4) 97 % 08/10/2025 09:29 PM Oxygen Saturation (57916-4) 91 % 08/11/2025 03:58 PM Body Weight (12476-7) 219 [lb_av] Body Mass Index (36463-1) 40.05 kg/m2 08/11/2025 09:23 AM Oxygen Saturation (05146-0) 97 % 08/12/2025 12:50 AM Oxygen Saturation (07816-2) 96 % 08/12/2025 11:56 AM Oxygen Saturation (54595-8) 99 % 08/12/2025 01:05 PM Body Weight (23521-4) 219 [lb_av] Body Mass Index (96207-5) 40.05 kg/m2 08/14/2025 12:03 AM Oxygen Saturation (95656-7) 97 % 08/13/2025 07:35 PM Oxygen Saturation (23008-2) 99 % Body Weight (49759-8) 218.8 [lb_av] Body Mass Index (55653-2) 40.01 kg/m2 08/14/2025 11:26 AM Oxygen Saturation (47590-0) 94 % 08/14/2025 08:02 PM Oxygen Saturation (05745-2) 96 % 08/15/2025 05:37 PM Oxygen Saturation (03641-3) 95 % 08/16/2025 05:01 AM Oxygen Saturation (40833-9) 97 % 08/16/2025 10:25 PM Oxygen Saturation (25646-9) 98 % 08/16/2025 05:29 PM Temperature (8310-5) 97 [degF] Oxygen Saturation (84616-4) 96 % Respiratory Rate (9279-1) 19 /min Heart Rate (8867-4) 83 /min Blood Pressure Systolic (8480-6) 151 mm[Hg] Blood Pressure Diastolic (8462-4) 82 mm[Hg] 08/17/2025 10:02 AM Oxygen Saturation (34915-0) 96 % 08/17/2025 08:13 PM Oxygen Saturation (59162-5) 98 % 08/18/2025 10:55 AM Oxygen Saturation (83825-0) 96 % 08/19/2025 01:23 AM Oxygen Saturation (95039-0) 95 % 08/19/2025 10:01 AM Oxygen Saturation (71296-5) 96 % 08/20/2025 12:28 AM Oxygen Saturation (17789-9) 95 % 08/20/2025 08:23 AM Oxygen Saturation (33312-9) 99 % 08/20/2025 07:50 PM Oxygen Saturation (00081-6) 96 % 08/21/2025 11:24 AM Oxygen Saturation (67222-1) 98 % 08/21/2025 07:59 PM Oxygen Saturation (30407-3) 94 % 08/22/2025 11:26 AM Oxygen Saturation (17438-3) 96 % 08/23/2025 05:21 AM Oxygen Saturation (81830-8) 94 % 08/23/2025 11:47 AM Temperature (8310-5) 98.1 [degF] Heart Rate (8867-4) 67 /min 08/23/2025 03:41 PM Body Weight (85659-9) 218.2 [lb_av ] Body Mass Index (24412-7) 39.9 kg/m2 08/23/2025 11:48 AM Oxygen Saturation (05948-6) 97 % Respiratory Rate (9279-1) 19 /min Blood Pressure Systolic (8480-6) 116 mm[Hg] Blood Pressure Diastolic (8462-4) 67 mm[Hg] 08/23/2025 08:00 PM Oxygen Saturation (83595-6) 97 % 08/24/2025 12:36 PM Oxygen Saturation (04705-2) 97 % 08/24/2025 07:54 PM Oxygen Saturation (70654-8) 96 % 08/25/2025 02:20 PM Body Weight (07691-7) 224.6 [lb_av ] Body Mass Index (97001-0) 41.08 kg/m2 08/25/2025 10:06 PM Oxygen Saturation (02462-9) 95 % 08/26/2025 09:26 AM Oxygen Saturation (79340-3) 98 % 08/26/2025 04:47 PM Body Weight (76289-9) 223.8 [lb_av ] Body Mass Index (61953-5) 40.93 kg/m2 08/26/2025 10:30 PM Oxygen Saturation (19224-3) 96 % 08/27/2025 09:00 AM Oxygen Saturation (29783-3) 97 % 08/27/2025 11:10 PM Oxygen Saturation (80465-2) 95 % 08/28/2025 11:32 AM Oxygen Saturation (69597-2) 90 % 08/28/2025 07:58 PM Oxygen Saturation (11190-6) 96 % 08/29/2025 04:15 PM Oxygen Saturation (80304-6) 96 % 08/30/2025 12:12 AM Oxygen Saturation (61385-6) 96 % 08/30/2025 10:53 AM Temperature (8310-5) 97.6 [degF] Oxygen Saturation (78723-6) 99 % Respiratory Rate (9279-1) 17 /min Heart Rate (8867-4) 81 /min Blood Pressure Systolic (8480-6) 131 mm[Hg] Blood Pressure Diastolic (8462-4) 69 mm[Hg] 08/30/2025 09:43 PM Oxygen Saturation (26711-1) 96 % 09/01/2025 02:27 AM Oxygen Saturation (27501-7) 95 % 09/01/2025 10:21 AM Oxygen Saturation (66369-6) 95 % 09/02/2025 08:10 AM Oxygen Saturation (52238-7) 98 % 09/03/2025 08:55 AM Oxygen Saturation (16941-8) 99 % 09/03/2025 08:53 PM Oxygen Saturation (40078-5) 97 % 09/04/2025 03:12 PM Oxygen Saturation (59684-4) 93 % 09/04/2025 07:01 PM Oxygen Saturation (98114-2) 96 % 09/05/2025 12:32 PM Oxygen Saturation (08966-3) 96 % 09/05/2025 11:11 PM Oxygen Saturation (19373-7) 95 % 09/06/2025 11:40 AM Body Weight (87647-3) 218 [lb_av] Body Mass Index (22157-8) 39.87 kg/m2 09/06/2025 09:34 AM Oxygen Saturation (25173-9) 98 % 09/06/2025 09:36 AM Temperature (8310-5) 97.8 [degF] Oxygen Saturation (28872-7) 98 % Respiratory Rate (9279-1) 17 /min Heart Rate (8867-4) 70 /min Blood Pressure Systolic (8480-6) 111 mm[Hg] Blood Pressure Diastolic (8462-4) 52 mm[Hg] 09/06/2025 09:35 PM Oxygen Saturation (88553-9) 96 % 09/07/2025 11:07 AM Oxygen Saturation (48192-3) 96 % 09/07/2025 08:12 PM Oxygen Saturation (34871-9) 93 % 09/08/2025 10:50 AM Oxygen Saturation (04496-5) 95 % 09/08/2025 09:48 PM Oxygen Saturation (05890-4) 96 % 09/09/2025 10:18 AM Oxygen Saturation (85042-1) 97 % 09/09/2025 07:03 PM Body Weight (40871-4) 216.6 [lb_av ] Body Mass Index (51994-4) 39.61 kg/m2 09/10/2025 09:39 PM Oxygen Saturation (61206-9) 96 % 09/11/2025 12:52 PM Oxygen Saturation (38639-4) 95 % 09/11/2025 07:26 PM Oxygen Saturation (79164-7) 94 % 09/12/2025 03:47 PM Oxygen Saturation (47770-4) 95 % 09/13/2025 12:10 AM Oxygen Saturation (49846-9) 94 % 09/13/2025 06:22 PM Temperature (8310-5) 97.6 [degF] Oxygen Saturation (63546-6) 97 % Respiratory Rate (9279-1) 15 /min Heart Rate (8867-4) 51 /min Blood Pressure Systolic (8480-6) 102 mm[Hg] Blood Pressure Diastolic (8462-4) 61 mm[Hg] 09/13/2025 08:40 PM Oxygen Saturation (24784-1) 93 % 09/14/2025 02:59 PM Oxygen Saturation (83191-4) 96 % 09/14/2025 08:36 PM Oxygen Saturation (37210-0) 92 % 09/15/2025 09:39 AM Oxygen Saturation (23178-6) 93 % 09/16/2025 02:39 PM Oxygen Saturation (76454-6) 94 % 09/16/2025 10:48 PM Oxygen Saturation (36782-7) 95 % 09/17/2025 10:08 AM Oxygen Saturation (22005-9) 99 % 09/17/2025 09:00 PM Oxygen Saturation (51140-2) 97 % 09/18/2025 05:44 PM Oxygen Saturation (09875-9) 96 % 09/18/2025 08:29 PM Oxygen Saturation (51984-4) 94 % 09/19/2025 11:41 AM Oxygen Saturation (50473-1) 91 % 09/19/2025 11:36 PM Oxygen Saturation (51478-2) 96 % 09/20/2025 09:09 AM Body Weight (18696-8) 215.4 [lb_av ] Body Mass Index (28350-4) 39.39 kg/m2 09/20/2025 09:08 AM Temperature (8310-5) 97.5 [degF] Oxygen Saturation (09455-8) 94 % Respiratory Rate (9279-1) 15 /min Heart Rate (8867-4) 73 /min Blood Pressure Systolic (8480-6) 111 mm[Hg] Blood Pressure Diastolic (8462-4) 62 mm[Hg] 09/20/2025 07:03 PM Oxygen Saturation (72440-1) 96 % 09/21/2025 10:23 AM Oxygen Saturation (13409-0) 94 % 09/21/2025 07:29 PM Oxygen Saturation (86398-1) 92 % 09/22/2025 09:35 AM Oxygen Saturation (03540-5) 94 % 09/23/2025 11:11 AM Oxygen Saturation (89499-4) 96 % 09/23/2025 08:49 PM Oxygen Saturation (54708-5) 95 % 09/24/2025 08:58 PM Oxygen Saturation (45542-9) 92 % 09/24/2025 05:09 PM Oxygen Saturation (92505-1) 95 % 09/25/2025 09:59 AM Oxygen Saturation (51163-2) 95 % 09/25/2025 07:50 PM Oxygen Saturation (69103-2) 93 % 09/27/2025 12:36 AM Oxygen Saturation (90543-4) 98 % 09/26/2025 06:31 PM Oxygen Saturation (14289-9) 94 % 09/27/2025 06:38 PM Temperature (8310-5) 97.9 [degF] Oxygen Saturation (94275-8) 98 % Respiratory Rate (9279-1) 17 /min Heart Rate (8867-4) 77 /min Blood Pressure Systolic (8480-6) 128 mm[Hg] Blood Pressure Diastolic (8462-4) 73 mm[Hg] 09/27/2025 09:02 PM Oxygen Saturation (42552-4) 93 % 09/28/2025 09:11 PM Oxygen Saturation (43271-2) 97 % 09/28/2025 07:29 PM Oxygen Saturation (49236-5) 96 % 09/29/2025 11:11 AM Oxygen Saturation (46904-8) 96 % 09/29/2025 11:47 PM Oxygen Saturation (66281-6) 97 % 09/30/2025 04:54 PM Oxygen Saturation (57974-8) 97 % 09/30/2025 11:50 PM Oxygen Saturation (42667-0) 96 % 10/01/2025 08:11 AM Oxygen Saturation (29493-9) 99 % 10/01/2025 10:56 PM Oxygen Saturation (64850-8) 96 % 10/02/2025 09:38 AM Oxygen Saturation (02117-2) 95 % 10/02/2025 08:00 PM Oxygen Saturation (39668-4) 92 % 10/03/2025 09:39 AM Oxygen Saturation (17214-9) 90 % 10/03/2025 07:00 PM Oxygen Saturation (99643-4) 94 % 10/04/2025 12:03 PM Temperature (8310-5) 97.1 [degF] Oxygen Saturation (21426-4) 97 % Respiratory Rate (9279-1) 70 /min Heart Rate (8867-4) 70 /min Blood Pressure Systolic (8480-6) 128 mm[Hg] Blood Pressure Diastolic (8462-4) 64 mm[Hg] 10/04/2025 09:35 AM Oxygen Saturation (96172-5) 97 % 10/04/2025 10:52 PM Oxygen Saturation (03958-0) 95 % 10/05/2025 10:32 AM Oxygen Saturation (04730-8) 93 % 10/05/2025 07:22 PM Oxygen Saturation (46376-8) 94 % 10/06/2025 09:56 AM Oxygen Saturation (27777-5) 94 % 10/06/2025 11:22 AM Temperature (8310-5) 99.8 [degF] 10/06/2025 07:21 PM Oxygen Saturation (92671-7) 94 % 10/07/2025 04:38 PM Oxygen Saturation (67335-5) 95 % 10/07/2025 09:23 PM Oxygen Saturation (80306-9) 95 % 10/08/2025 11:40 AM Oxygen Saturation (65003-3) 97 % 10/08/2025 06:51 PM Oxygen Saturation (07751-0) 93 % 10/09/2025 04:59 PM Body Weight (00199-6) 277.2 [lb_av ] Body Mass Index (80133-2) 50.7 kg/m2 10/09/2025 10:35 AM Oxygen Saturation (70971-1) 95 % 10/09/2025 08:07 PM Oxygen Saturation (78410-3) 93 % 10/10/2025 06:35 PM Oxygen Saturation (04021-5) 94 % 10/10/2025 10:30 PM Oxygen Saturation (40222-2) 98 % 10/11/2025 09:49 AM Temperature (8310-5) 97.1 [degF] Respiratory Rate (9279-1) 15 /min Heart Rate (8867-4) 90 /min Blood Pressure Systolic (8480-6) 180 mm[Hg] Blood Pressure Diastolic (8462-4) 90 mm[Hg] Body Weight (09699-3) 208.4 [lb_av] Body Mass Index (68982-4) 38.11 kg/m2 10/11/2025 09:48 AM Oxygen Saturation (71765-3) 96 % 10/11/2025 05:44 PM Oxygen Saturation (22219-4) 94 % 10/12/2025 10:15 AM Oxygen Saturation (09541-6) 93 % 10/12/2025 09:49 PM Oxygen Saturation (20081-4) 95 % 10/13/2025 06:09 AM Oxygen Saturation (81983-2) 94 % 10/13/2025 09:29 PM Oxygen Saturation (52476-1) 95 % 10/14/2025 09:08 AM Oxygen Saturation (10048-9) 99 % 10/14/2025 07:58 PM Oxygen Saturation (84274-0) 97 % 10/15/2025 09:09 AM Oxygen Saturation (08009-0) 94 % 10/15/2025 08:42 PM Oxygen Saturation (14237-5) 95 % 10/16/2025 02:43 PM Oxygen Saturation (93530-1) 94 % 10/16/2025 04:55 PM Body Weight (30037-6) 218.4 [lb_av ] Body Mass Index (25463-9) 39.94 kg/m2 10/16/2025 07:51 PM Oxygen Saturation (96910-2) 95 % 10/17/2025 11:08 AM Oxygen Saturation (45293-6) 97 % 10/17/2025 10:41 PM Oxygen Saturation (62493-0) 97 % 10/18/2025 01:26 PM Body Weight (84392-7) 216.4 [lb_av ] Body Mass Index (55668-1) 39.58 kg/m2 10/18/2025 11:09 AM Temperature (8310-5) 97.9 [degF] Oxygen Saturation (01239-0) 91 % Respiratory Rate (9279-1) 16 /min Heart Rate (8867-4) 71 /min Blood Pressure Systolic (8480-6) 105 mm[Hg] Blood Pressure Diastolic (8462-4) 53 mm[Hg] 10/18/2025 09:08 PM Oxygen Saturation (33576-0) 96 % 10/19/2025 09:29 AM Oxygen Saturation (09233-5) 95 % 10/20/2025 01:02 AM Oxygen Saturation (00351-9) 95 % 10/20/2025 09:54 AM Oxygen Saturation (62436-7) 96 % 10/20/2025 09:45 PM Oxygen Saturation (78507-6) 95 % 10/21/2025 08:39 AM Oxygen Saturation (25138-7) 97 % 10/22/2025 11:43 AM Oxygen Saturation (00314-6) 99 % 10/22/2025 08:42 PM Oxygen Saturation (31603-5) 97 % 10/23/2025 09:32 AM Oxygen Saturation (77157-4) 97 % 10/23/2025 09:20 PM Oxygen Saturation (60102-8) 94 % 10/24/2025 05:19 PM Oxygen Saturation (50071-4) 94 % 10/24/2025 08:42 PM Oxygen Saturation (86777-0) 93 % 10/25/2025 04:13 PM Body Weight (04637-0) 217.8 [lb_av ] Body Mass Index (19974-6) 39.83 kg/m2 10/25/2025 07:02 PM Oxygen Saturation (52252-9) 94 % 10/25/2025 05:45 PM Temperature (8310-5) 97.6 [degF] Respiratory Rate (9279-1) 16 /min Heart Rate (8867-4) 65 /min Blood Pressure Systolic (8480-6) 134 mm[Hg] Blood Pressure Diastolic (8462-4) 86 mm[Hg] 10/25/2025 05:29 PM Oxygen Saturation (40963-7) 96 % 10/26/2025 04:17 PM Oxygen Saturation (61920-1) 97 % 10/26/2025 06:47 PM Oxygen Saturation (37555-6) 96 % 10/27/2025 10:49 AM Oxygen Saturation (17046-7) 97 % 10/27/2025 08:42 PM Oxygen Saturation (61883-8) 94 % 10/28/2025 09:24 AM Oxygen Saturation (61874-1) 95 % 10/29/2025 11:38 AM Oxygen Saturation (91899-5) 95 % 10/29/2025 08:45 PM Oxygen Saturation (25380-9) 96 % 10/30/2025 03:24 PM Oxygen Saturation (63059-8) 94 % 10/30/2025 06:45 PM Oxygen Saturation (07636-7) 95 % 10/31/2025 11:34 AM Oxygen Saturation (68949-7) 96 % 10/31/2025 07:46 PM Oxygen Saturation (56938-0) 98 % 11/01/2025 04:50 PM Body Weight (50920-9) 213.4 [lb_av ] Body Mass Index (82095-4) 39.03 kg/m2 11/01/2025 09:46 AM Temperature (8310-5) 98.4 [degF] Oxygen Saturation (91274-1) 96 % Respiratory Rate (9279-1) 17 /min Heart Rate (8867-4) 74 /min Blood Pressure Systolic (8480-6) 124 mm[Hg] Blood Pressure Diastolic (8462-4) 61 mm[Hg] 11/01/2025 11:12 PM Oxygen Saturation (21677-8) 96 % 11/02/2025 08:48 AM Oxygen Saturation (42350-9) 95 % 11/02/2025 08:03 PM Oxygen Saturation (45665-3) 94 % 11/03/2025 12:30 PM Oxygen Saturation (51570-0) 95 % 11/03/2025 09:34 PM Oxygen Saturation (05013-1) 96 % 11/04/2025 08:57 AM Oxygen Saturation (36226-7) 99 % 11/04/2025 10:02 PM Oxygen Saturation (31604-9) 96 % 11/05/2025 09:09 AM Oxygen Saturation (46850-4) 99 % 11/06/2025 08:17 AM Oxygen Saturation (47716-9) 90 % 11/06/2025 09:10 PM Oxygen Saturation (67936-6) 94 % 11/07/2025 02:11 PM Oxygen Saturation (20526-6) 95 % Social History No smoking Hx information available Encounters Type CPT Code Date Location Provider Indication s encounter report 02/03/2022 02:23 PM RENE MORENO MD encounter report 02/03/2022 02:23 PM Nathaniel Maharaj MD Advance Directives Directive Description Verification Date Supporting Document(s) Resuscitation
--- OUTSIDE RECORDS SUMMARY | 2025-11-07 22:47 | XMS_ITS | Continuity of Care Document ---
Author Organization [facility] Aj Wolf, [facility] ([facility]) Address [address] [place] [address] Assessment No assessment recorded. Plan of Treatment [...] Organization Details Recorded Time Parkinso n's disease 29636774 Active 2023 [facility] 12:32:16 Anxiety 39345788 Active 2023 [facility] 5 15:18:13 Chronic kidney disease stage 3B 740010547 Active 2023 [facility] 16:24:46 Edema 216143635 Completed 202301/04/2025 Removal Reason: resolved [facility] 16:25:12 Chronic pain 29138967 Active 2023 [facility] 5 16:24:51 Pain of multiple joints 40149980 Active 2023 DEVI MONICAJOHNATHON null, [facility], L.L[facility]CChey 5 16:25:16 Pain of left shoulder joint 54952456589 719578 Completed 202301/04/2025 Removal Reason: resolved DEVI OLMEDO null, [facility] L[facility] 5 16:25:28 Primary insomnia 6953954 Active 2024 KENDRICK LAWRENCE null, [facility] 5 09:49:23 Bilatera l lower limb edema 481088873 Active 2024 KENDRICK LAWRENCE null, [facility] 5 09:49:23 Acute kidney injury 51022835 Active 2024 DEVI OLMEDO null, [facility] 5 13:12:10 Type 2 diabetes mellitus 06457836 Active 2024 DEVI OLMEDO null, [facility] 12:50:02 Blister of foot 048448021 Active 2024 DEVI OLMEDO null, [facility] 12:52:39 Retentio n of urine 546751862 Active 2024 DEVI OLMEDO null, [facility] 12:32:25 Constipa tion 98940054 Active 2024 DEVI HONORIO null, [facility] 18:09:30 Vaginal discharg e 142157049 Active 2024 DEVI OLMEDO null, [facility] 12:20:04 Chronic constipa tion 573151526 Active 2024 [facility] 12:20:11 Problem Notes None recorded. Procedures Surgical History Date Name Laterality Status Provider Name and Address Organization Details Recorded Time tonsillectomy completed KENDRICK LAWRENCE [facility] 05/16/2025 09:54:05 Imaging Results None recorded. Procedure Notes None recorded. Medical Equipment None Reported. Allergies Allergen ID Allergen Name Allergen Category Reaction Reaction Severity Criticality Documentation Date Start Date Code Code System Note Provider Name and Address Organization Details Recorded Time 43262 ampicilli n medicatio n Not available Not available Not available 06/06/2023 733 RxNorm [facility] 09:44:08 17776 cultivate d mushroom extract food,medi cation Not available Not available Not available 10/04/20252024 90920 17 RxNorm Not Available erick - External [...] sent to pharmacy . dose increase ; 20919; Recorded 09/16/20 1:08PM by Emerald Shane RN [...] Details Last Updated DateTime 5 157.48 cm 39.5 kg/m2 06154.9 5 g 94 % 51 /min 15 /min 97.6 [degF] 102/61 mm[Hg] Michelle Brice [facility] 5 10:13:48 Date Recorded Body height Body mass index (BMI) Body weight Oxygen saturation Heart rate Respiratory rate Body temperature Systolic And Diastolic Provider Name and Address Organization Details Last Updated DateTime 5 157.48 cm 39.3 kg/m2 84508.3 6 g 97 % 77 /min 17 /min 97.9 [degF] 128/73 mm[Hg] DEVI OLMEDO [facility] 5 15:16:36 Social History Question Answer Notes LastModified by Organizat ion Details LastModified Time Tobacco Smoking Status Unknown If Ever Smoked KENDRICK cole [facility] 05/16/2025 09:52:40 Where Do You Live? [place] Information not available 05/16/2025 What Was The Date Of Your Most Recent Tobacco Screening? 05/16/2025 [email or web address] Information not available 05/16/2025 Sex: Unknown Functional [...] high-dose, trivalent, PF 6 completed Not Available [facility] 10/04/2025 14:39:42 zoster recombinant 8 completed Not Available [facility] 10/04/2025 14:39:42 zoster recombinant 8 completed Not Available [facility] 10/04/2025 14:39:42 Tdap 8 completed Not Available [facility] 10/04/2025 14:39:42 COVID-19, mRNA, LNP-S, PF, 100 mcg/0.5mL dose or 50 mcg/0.25mL dose 1 completed Not Available [facility] 10/04/2025 14:39:42 COVID-19, mRNA, LNP-S, PF, 100 mcg/0.5mL dose or 50 mcg/0.25mL dose 1 completed Not Available [facility] 10/04/2025 14:39:42 COVID-19, mRNA, LNP-S, PF, 100 mcg/0.5mL dose or 50 mcg/0.25mL dose 2 completed Not Available [facility] 10/04/2025 14:39:42 COVID-19, mRNA, LNP-S, bivalent, PF, 50 mcg/0.5 mL or 25mcg/0.25 mL dose 2 completed Not Available [facility] 10/04/2025 14:39:42 COVID-19, mRNA, LNP-S, PF, francia-sucrose, 30 mcg/0.3 mL 4 completed Not Available [facility] 10/04/2025 14:39:42 Past Encounters Encounter ID Performer Location Encounter Start Date Encounter Closed Date Diagnosis/Indication Diagnosis SNOMED-CT Code Diagnosis ICD10 Code Diagnosis IMO Codes Diagnosis Note [id number] DILLON MADDOX PA-C [facility] ([facility]) [address] [place] [phone] 09/06/2025 17:42:30 10/17/2025 13:33:21 Seen in department 767123225 Z76.89 [id number] ER records reviewed. Constipation 87706165 K5 9.09 861943 MAKE LACTULOSE PRNpush fluids and increase activity. [id number] DILLON MADDOX PA-C [facility] ([facility]) [address] [place] [address] 09/13/2025 12:07:35 10/17/2025 17:14:17 Chronic constipation 727848621 K59.09 421376 MAKE LACTULOSE PRN she is often refusing. Urinary sy mptom change 826634227 R39.690 [id number] ua with c&s [id number] John Maddox MD [facility] ([facility]) [address] [place] [phone] 09/19/2025 08:05:07 10/17/2025 12:39:38 Type 2 diabetes mellitus 85377847 E11.9 Z79.4 86248271 Health Concerns Section Related Observation LastModified by Organization Detai ls LastModified Time None Recorded Concern Status LastModified by Organization Details LastModified Time None Recorded Payers Encounter Date Sequence Insurance Name Policy Number Policy Tucker Covered Member ID Tucker Member ID Guarantor Name 09/19/2025 1 [place]ANT[place] - PPO) [id number] Miguelina Gus Provow [id number] Miguelina A Provow 09/19/2025 2 [place] Leilani Goncalves [id number] Miguelina Gus Provow Notes Date Note Type Note Provider Name and Address Organization Details Recorded Time 09/19/2025 text/html DiabetesReported by PatientI reviewed the patient's recent labs, vital signs, medications, and plan of care. I recommend no other change sat this time.she report there have been no changes or problems. staff concurs. she has no questions or concerns today Dr. Maddox saw patient today at [facility] John Maddox MD [address] [place] [address], [phone], [facility] 10/17/2025 12:35:48 10/04/2025 text/html Anxiety/Depressi onRepor salina by PatientHPIFor [...] to be resting well. John Maddox MD [address] [place], [address], [facility] 11/05/2025 21:55:43 OBGyn Episode No OBEpisode recorded.
--- OUTSIDE RECORDS SUMMARY | 2025-11-07 22:49 | XMS_ITS | Continuity of Care Document ---
Author Organization [facility] Aj Wolf, [facility] ([facility]) Address [address] [place] [address] Assessment No assessment recorded. Plan of Treatment [...] Organization Details Recorded Time Parkinso n's disease 66729705 Active 2023 [facility] 12:32:16 Anxiety 73275162 Active 2023 [facility] 5 15:18:13 Chronic kidney disease stage 3B 085799351 Active 2023 [facility] 16:24:46 Edema 848248107 Completed 202301/04/2025 Removal Reason: resolved [facility] 16:25:12 Chronic pain 20629377 Active 2023 [facility] 5 16:24:51 Pain of multiple joints 59180434 Active 2023 DEVI MONICAJOHNATHON null, [facility] 5 16:25:16 Pain of left shoulder joint 50706896521 384020 Completed 202301/04/2025 Removal Reason: resolved DEVI OLMEDO null, [facility] 5 16:25:28 Primary insomnia 8759515 Active 2024 KENDRICK LAWRENCE null, [facility] 5 09:49:23 Bilatera l lower limb edema 171141381 Active 2024 KENDRICK LAWRENCE null, [facility] 5 09:49:23 Acute kidney injury 57781564 Active 2024 DEVI OLMEDO null, [facility] 5 13:12:10 Type 2 diabetes mellitus 79863751 Active 2024 DEVI OLMEDO null, [facility] 12:50:02 Blister of foot 777898402 Active 2024 DEVI OLMEDO null, [facility] 12:52:39 Retentio n of urine 990927988 Active 2024 DEVI OLMEDO null, [facility] 12:32:25 Constipa tion 03752695 Active 2024 DEVI HONORIO null, [facility] 18:09:30 Vaginal discharg e 323789364 Active 2024 DEVI OLMEDO null, [facility] 12:20:04 Chronic constipa tion 285614418 Active 2024 [facility] 12:20:11 Problem Notes None recorded. Procedures Surgical History Date Name Laterality Status Provider Name and Address Organization Details Recorded Time tonsillectomy completed KENDRICK LAWRENCE [facility]yCC[facility] 05/16/2025 09:54:05 Imaging Results None recorded. Procedure Notes None recorded. Medical Equipment None Reported. Allergies Allergen ID Allergen Name Allergen Category Reaction Reaction Severity Criticality Documentation Date Start Date Code Code System Note Provider Name and Address Organization Details Recorded Time 76583 ampicilli n medicatio n Not available Not available Not available 06/06/2023 733 RxNorm [facility] 09:44:08 45839 cultivate d mushroom extract food,medi cation Not available Not available Not available 10/04/20252024 81188 17 RxNorm Not Available erick - External [...] sent to pharmacy . dose increase ; 79200; Recorded 09/16/20 1:08PM by Emerald Shane RN [...] Details Last Updated DateTime 5 157.48 cm 40.8 kg/m2 245415. 1 g 98 % 70 /min 17 /min 97.8 [degF] 111/52 mm[Hg] [facility] 5 18:03:53 Date Recorded Body height Body mass index (BMI) Body weight Oxygen saturation Heart rate Respiratory rate Body temperature Systolic And Diastolic Provider Name and Address Organization Details Last Updated DateTime 5 157.48 cm 39.5 kg/m2 68940.9 5 g 94 % 70 /min 17 /min 97.8 [degF] 111/52 mm[Hg] [facility] 5 12:17:11 Date Recorded Body height Body mass index (BMI) Body weight Oxygen saturation Heart rate Respiratory rate Body temperature Systolic And Diastolic Provider Name and Address Organization Details Last Updated DateTime 5 157.48 cm 39.5 kg/m2 85369.9 5 g 94 % 51 /min 15 /min 97.6 [degF] 102/61 mm[Hg] Michelle Brice [facility] 5 10:13:48 Date Recorded Body height Body mass index (BMI) Body weight Oxygen saturation Heart rate Respiratory rate Body temperature Systolic And Diastolic Provider Name and Address Organization Details Last Updated DateTime 5 157.48 cm 39.3 kg/m2 71064.3 6 g 97 % 77 /min 17 /min 97.9 [degF] 128/73 mm[Hg] DEVI ANDERSONJOHNATHON [facility] 5 15:16:36 Social History Question Answer Notes LastModified by [email or web address] ion Details LastModified Time Tobacco Smoking Status Unknown If Ever Smoked [facility] 05/16/2025 09:52:40 Where Do You Live? [facility] [email or web address] Information not available 05/16/2025 What Was The Date Of Your Most Recent Tobacco Screening? 05/16/2025 [email or web address] Information not available 05/16/2025 Sex: Unknown Functional Status Question Answer Note LastModified by [employer] ion Details LastModified Time Do you use any illicit or recreational drugs? No [email or web address] Information not available 05/16/2025 What is your level of alcohol consumption? None [email or web address] Information not available 05/16/2025 Mental Status None recorded. Family History Nothing Reported. Medical History No medical history recorded. Gynecological HistoryNo gynecological history recorded. Obstetrics History GPAL:G 0 P 0 0 0 0 Immunizations Vaccine Type Date Status Note Provider Nam e and Address Organization Details Recorded Time Influenza, high-dose, trivalent, PF 6 completed Not Available [facility] 10/04/2025 14:39:42 zoster recombinant 8 completed Not Available [facility] 10/04/2025 14:39:42 zoster recombinant 8 completed Not Available [facility] 10/04/2025 14:39:42 Tdap 8 completed Not Available [facility] 10/04/2025 14:39:42 COVID-19, mRNA, LNP-S, PF, 100 mcg/0.5mL dose or 50 mcg/0.25mL dose 1 completed Not Available [facility] 10/04/2025 14:39:42 COVID-19, mRNA, LNP-S, PF, 100 mcg/0.5mL dose or 50 mcg/0.25mL dose 1 completed Not Available [facility] 10/04/2025 14:39:42 COVID-19, mRNA, LNP-S, PF, 100 mcg/0.5mL dose or 50 mcg/0.25mL dose 2 completed Not Available [facility] 10/04/2025 14:39:42 COVID-19, mRNA, LNP-S, bivalent, PF, 50 mcg/0.5 mL or 25mcg/0.25 mL dose 2 completed Not Available [facility] 10/04/2025 14:39:42 COVID-19, mRNA, LNP-S, PF, francia-sucrose, 30 mcg/0.3 mL 4 completed Not Available [facility] 10/04/2025 14:39:42 Past Encounters Encounter ID Performer Location Encounter Start Date Encounter Closed Date Diagnosis/Indication Diagnosis SNOMED-CT Code Diagnosis ICD10 Code Diagnosis IMO Codes Diagnosis Note [id number] DILLON MADDOX PA-C [facility] ([facility]) [address] [place] [phone] 09/06/2025 17:42:30 10/17/2025 13:33:21 Seen in department 154304926 Z76.89 [id number] ER records reviewed. Constipation 99648707 K5 9.09 956684 MAKE LACTULOSE PRNpush fluids and increase activity. Health Concerns Section Related Observation LastModified by Organization Detai ls LastModified Time None Recorded Concern Status LastModified by Organization Details LastModified Time None Recorded Payers Encounter Date Sequence Insurance Name Policy Number Policy Tucker Covered Member ID Tucker Member ID Guarantor Name 09/06/2025 1 [place] - PPO) [id number] Miguelina A Provow [id number] Miguelina A Provow 09/06/2025 2 [place] Leilani Provow [id number] Miguelina A Provow Notes Date Note Type Note Provider Name and Address Organization Details Recorded Time 5 text/html ConstipationReported by PatientHPIFor quality, patient reportshard,dry,straining ,decreased frequency, anddecreased amount. For severity, patient reportsmoderate. For duration, patient reportspresent <1 month. Pt was seen in ER for abdomnial pain.She was dx with constipation and sent backShe has had several BMs now and nursing staff asking to change her Lactulose to PRN> John Maddox MD [address] [place], [address], [facility] 10/17/2025 12:51:38 5 text/html ConstipationReported by PatientHPIFor quality, patient reportshard,dry,straining ,decreased frequency, anddecreased amount. For context, patient reportshistory of diabetes. For severity, patient reportsmoderate. For duration, patient reportspresent <1 month. staff is noticing more slimey discharge and odor in her brief. no dysuria. is often incontinent. NO fever. no abdominal pain John Maddox MD [address] [place] [address], [phone], [facility] 10/17/2025 12:50:59 5 text/html DiabetesReported by PatientI reviewed the patient's recent labs, vital signs, medications, and plan of care. I recommend no other change sat this time.she report there have been no changes or problems. staff concurs. she has no questions or concerns today Dr. Maddox saw patient today at [facility] John Maddox MD [address] [place], [address], [facility] 10/17/2025 12:35:48 5 text/html Anxiety/DepressionReporte d by PatientHPIFor severity, patient reportsincreased anxietybut reportsdenies suicidal ideations,able to maintain relationships, anddoes not interfere with activities of daily living. For duration, patient reportschronic. For onset/timing, patient reportsgradualandfrequent . For modifying factors, patient reportsmedications as directed. staff reports pt is doing much better schedule with a later evening benzo. She is more relaxed. not requesting a person in her room every 5 min.Seems to be resting well. John Maddox MD [address] [place] [address], [phone], [facility], Aj 11/05/2025 21:55:43 OBGyn Episode No OBEpisode recorded.
--- OUTSIDE RECORDS SUMMARY | 2025-11-07 22:49 | XMS_ITS | Continuity of Care Document ---
Author Organization [facility] Aj Wolf, [facility] ([facility]) Address [address] [place] [address] Assessment No assessment recorded. Plan of Treatment [...] Organization Details Recorded Time Parkinso n's disease 84191388 [facility] [address] [facility] 12:32[facility]16 Anxiety 01724138 Active [address] [facility] 5 15:18:13 Chronic kidney disease stage 3B 734277930 Active [address] [facility] 16:24:46 Edema 943471724 Completed 202301/04/2025 Removal Reason: resolved [facility] 16:25:12 Chronic pain 72146412 Active [address] [facility] 5 16:24:51 Pain of multiple joints 55975244 Active 2023 DEVI MONICAJOHNATHON null, [facility] 5 16:25:16 Pain of left shoulder joint 33297915536 522646 Completed 202301/04/2025 Removal Reason: resolved DEVI OLMEDO null, [facility] 5 16:25:28 Primary insomnia 4713857 Active 2024 KENDRICK LAWRENCE null, [facility] 5 09:49:23 Bilatera l lower limb edema 649577462 Active 2024 KENDRICK LAWRENCE null, [facility] 5 09:49:23 Acute kidney injury 39212248 Active 2024 DEVI OLMEDO null, [facility] 5 13:12:10 Type 2 diabetes mellitus 13952667 Active 2024 DEVI OLMEDO null, [facility] 12:50:02 Blister of foot 486967868 Active 2024 DEVI OLMEDO null, [facility] 12:52:39 Retentio n of urine 365420413 Active 2024 DEVI OLMEDO null, [facility] 12:32:25 Constipa tion 12531798 Active 2024 DEVI HONORIO null, [facility] 18:09:30 Vaginal discharg e 297402727 Active 2024 DEVI OLMEDO null, [facility] 12:20:04 Chronic constipa tion 529373197 Active 2024 [facility] 12:20:11 Problem Notes None recorded. Procedures Surgical History Date Name Laterality Status Provider Name and Address Organization Details Recorded Time tonsillectomy completed [facility]ENDRICK LAWRENCE [facility] 05/16/2025 09:54:05 Imaging Results None recorded. Procedure Notes None recorded. Medical Equipment None Reported. Allergies Allergen ID Allergen Name Allergen Category Reaction Reaction Severity Criticality Documentation Date Start Date Code Code System Note Provider Name and Address Organization Details Recorded Time 06491 ampicilli n medicatio n Not available Not available Not available 06/06/2023 733 RxNorm [facility] 09:44:08 36704 cultivate d mushroom extract food,medi cation Not available Not available Not available 10/04/20252024 49127 17 RxNorm Not Available erick - External [...] sent to pharmacy . dose increase ; 80478; Recorded 09/16/20 1:08PM by Emerald Shane RN [...] Updated DateTime 5 157.48 cm 39.5 kg/m2 93335.9 5 g 94 % 70 /min 17 /min 97.8 [degF] 111/52 mm[Hg] DEVI OLMEDO [facility] 5 12:17:11 Date Recorded Body height Body mass index (BMI) Body weight Oxygen saturation Heart rate Respiratory rate Body temperature Systolic And Diastolic Provider Name and Address Organization Details Last Updated DateTime 5 157.48 cm 39.5 kg/m2 70189.9 5 g 94 % 51 /min 15 /min 97.6 [degF] 102/61 mm[Hg] Michelle Brice [facility] 5 10:13:48 Date Recorded Body height Body mass index (BMI) Body weight Oxygen saturation Heart rate Respiratory rate Body temperature Systolic And Diastolic Provider Name and Address Organization Details Last Updated DateTime 5 157.48 cm 39.3 kg/m2 77176.3 6 g 97 % 77 /min 17 /min 97.9 [degF] 128/73 mm[Hg] DEVI CIFUENTESMARCO [facility] 15:16:36 Social History Question Answer Notes LastModified by Organizat ion Details LastModified Time Tobacco Smoking Status Unknown If Ever Smoked KENDRICK LAWRENCE kelsey, [facility] 05/16/2025 09:52:40 Where Do You Live? [facility] [email or web address] Information not available 05/16/2025 What Was The Date Of Your Most Recent Tobacco Screening? 05/16/2025 [email or web address] Information not available 05/16/2025 Sex: Unknown Functional Status Question Answer Note LastModified by Organizat ion Details LastModified Time Do you use any illicit or recreational drugs? No Information not available 05/16/2025 What is your level of alcohol consumption? None [email or web address] Information not available 05/16/2025 Mental Status None recorded. Family History Nothing Reported. Medical History No medical history recorded. Gynecological HistoryNo gynecological history recorded. Obstetrics History GPAL:G 0 P 0 0 0 0 Immunizations Vaccine Type Date Status Note Provider Nam e and Address Organization Details Recorded Time Influenza, high-dose, trivalent, PF 6 completed Not Available [facility] 10/04/2025 14:39:42 zoster recombinant 8 completed Not Available [facility] 10/04/2025 14:39:42 zoster recombinant 8 completed Not Available [facility] 10/04/2025 14:39:42 Tdap 8 completed Not Available [facility] 10/04/2025 14:39:42 COVID-19, mRNA, LNP-S, PF, 100 mcg/0.5mL dose or 50 mcg/0.25mL dose 1 completed Not Available [facility] 10/04/2025 14:39:42 COVID-19, mRNA, LNP-S, PF, 100 mcg/0.5mL dose or 50 mcg/0.25mL dose 1 completed Not Available [facility] 10/04/2025 14:39:42 COVID-19, mRNA, LNP-S, PF, 100 mcg/0.5mL dose or 50 mcg/0.25mL dose 2 completed Not Available [facility] 10/04/2025 14:39:42 COVID-19, mRNA, LNP-S, bivalent, PF, 50 mcg/0.5 mL or 25mcg/0.25 mL dose 2 completed Not Available [facility] 10/04/2025 14:39:42 COVID-19, mRNA, LNP-S, PF, francia-sucrose, 30 mcg/0.3 mL 4 completed Not Available [facility] 10/04/2025 14:39:42 Past Encounters Encounter ID Performer Location Encounter Start Date Encounter Closed Date Diagnosis/Indication Diagnosis SNOMED-CT Code Diagnosis ICD10 Code Diagnosis IMO Codes Diagnosis Note [id number] DILLON MADDOX PA-C [facility] ([facility]) [address] [place] [phone] 09/06/2025 17:42:30 10/17/2025 13:33:21 Seen in department 498618184 Z76.89 [id number] ER records reviewed. Constipation 90647320 K5 9.09 887909 MAKE LACTULOSE PRNpush fluids and increase activity. [id number] DILLON MADDOX PA-C [facility] ([facility]) [address] [place] [address] 5 09/13/2025 12:07:35 10/17/2025 17:14:17 Chronic constipation 651920464 K59.09 784497 MAKE LACTULOSE PRN she is often refusing. Urinary sy mptom change 541031946 R39.018 [id number] ua with c&s Health Concerns Section Related Observation LastModified by Organization Detai ls LastModified Time None Recorded Concern Status LastModified by Organization Details LastModified Time None Recorded Payers Encounter Date Sequence Insurance Name Policy Number Policy Tucker Covered Member ID Tucker Member ID Guarantor Name 09/13/2025 1 [id number]A [place] - [place]PO) [id number] Miguelina Weber Provow [id number] Miguelina Weber Provow 09/13/2025 2 [place]il[place] Provow [id number] Miguelina Weber Provow Notes Date Note Type Note Provider [...] fever. no abdominal pain John Maddox MD [address] [place] [address], [phone], [facility] 10/17/2025 12:50:59 5 text/html DiabetesReported by PatientI reviewed the patient's recent labs, vital signs, medications, and plan of care. I recommend no other change sat this time.she report there have been no changes or problems. staff concurs. she has no questions or concerns today Dr. Maddox saw patient today at [facility] John Maddox MD [address] [place] [address], [phone], [facility] 10/17/2025 12:35:48 5 text/html Anxiety/DepressionReporte d [...] to be resting well. John Maddox MD [address] [place] [address], [phone], [facility] 11/05/2025 21:55:43 OBGyn Episode No OBEpisode recorded.
--- OUTSIDE RECORDS SUMMARY | 2025-11-07 22:49 | XMS_ITS | Data Portability ---
Author Organization [facility], [facility] Address [address] [place] [phone] Assessment No assessment recorded. Plan of Treatment [...] Organization Details Recorded Time Parkinso n's disease 50447987 Active 2023 [facility] 12:32:16 Anxiety 63665530 Active 2023 [facility] 15:18:13 Chronic kidney disease stage 3B 438964099 Active 2023 [facility] 16:24:46 Edema 175282373 Completed 202301/04/2025 Removal Reason: resolved [facility] 16:25:12 Chronic pain 94542751 Active 2023 [facility] 16:24:51 Pain of multiple joints 15428017 Active 2023 DEVI OLMEDO null, [facility] 5 16:25:16 Pain of left shoulder joint 63843528403 842382 Completed 202301/04/2025 Removal Reason: resolved DEVI OLMEDO null, [facility] L[facility]yL.[facility]hey 5 16:25:28 Primary insomnia 8833898 Active 2024 KENDRICK LAWRENCE null, [facility] 5 09:49:23 Bilatera l lower limb edema 988740983 Active 2024 KENDRICK LAWRENCE null, [facility] 5 09:49:23 Acute kidney injury 96969581 Active 2024 DEVI OLMEDO null, [facility] 5 13:12:10 Type 2 diabetes mellitus 28166781 Active 2024 DEVI OLMEDO null, [facility] 5 12:50:02 Blister of foot 173805559 Active 2024 DEVI OLMEDO [facility] L[facility] 5 12:52:39 Retentio n of urine 201571868 Active 2024 DEVI OLMEDO null, [facility] 5 12:32:25 Constipa tion 30011638 Active 2024 DEVI OLMEDO null, [facility] 18:09:30 Vaginal discharg e 590784269 Active 2024 DEVI OLMEDO null, [facility] 12:20:04 Chronic constipa tion 909466621 Active 2024 [facility] 12:20:11 Problem Notes None recorded. Procedures Surgical History Date Name Laterality Status Provider Name and Address Organization Details Recorded Time tonsillectomy completed KENDRICK LAWRENCE [facility] 05/16/2025 09:54:05 Imaging Results None recorded. Procedure Notes None recorded. Medical Equipment None Reported. Allergies Allergen ID Allergen Name Allergen Category Reaction Reaction Severity Criticality Documentation Date Start Date Code Code System Note Provider Name and Address Organization Details Recorded Time 69856 ampicilli n medicatio n Not available Not available Not available 06/06/2023 733 RxNorm [facility] 09:44:08 02792 cultivate d mushroom extract food,medi cation Not available Not available Not available 10/04/20252024 01999 17 RxNorm Not Available [facility] - External Data Service - prod 15:11:52 [...] sent to pharmacy . dose increase ; 47526; Recorded 09/16/20 22 1:08PM by Emerald Shane RN (Authori cherry through Karl Olmedo DO), Office Visit; Refill [...] Not Available Vitals Date Recorded Body height Oxygen saturation Heart rate Respiratory rate Body temperature Systolic And Diastolic Provider Name and Address Organization Details Last Updated DateTime 5 157.48 cm 93 % 61 /min 18 /min 98.3 [degF] 101/76 mm[Hg] [facility] 5 12:29:45 Date Recorded Body height Body mass index (BMI) Body weight Oxygen saturation Heart rate Respiratory rate Body temperature Systolic And Diastolic Provider Name and Address Organization Details Last Updated DateTime 5 157.48 cm 40.8 kg/m2 394855. 1 g 98 % 70 /min 17 /min 97.8 [degF] 111/52 mm[Hg] [facility] 5 18:03:53 Date Recorded Body height Body mass index (BMI) Body weight Oxygen saturation Heart rate Respiratory rate Body temperature Systolic And Diastolic Provider Name and Address Organization Details Last Updated DateTime 5 157.48 cm 39.5 kg/m2 36056.9 5 g 94 % 70 /min 17 /min 97.8 [degF] 111/52 mm[Hg] [facility] 5 12:17:11 Date Recorded Body height Body mass index (BMI) Body weight Oxygen saturation Heart rate Respiratory rate Body temperature Systolic And Diastolic Provider Name and Address Organization Details Last Updated DateTime 5 157.48 cm 39.5 kg/m2 29271.9 5 g 94 % 51 /min 15 /min 97.6 [degF] 102/61 mm[Hg] Michelle Brice [facility] 5 10:13:48 Date Recorded Body height Body mass index (BMI) Body weight Oxygen saturation Heart rate Respiratory rate Body temperature Systolic And Diastolic Provider Name and Address Organization Details Last Updated DateTime 5 157.48 cm 39.3 kg/m2 63631.3 6 g 97 % 77 /min 17 /min 97.9 [degF] 128/73 mm[Hg] DEVI OLMEDO [facility] 5 15:16:36 Social History Question Answer Notes LastModified by [employer] Details LastModified Time Tobacco Smoking Status Unknown If Ever [facility]oked [facility] 05/16/2025 09:52:40 Where Do You Live? [facility] [email or web address] Information not available 05/16/2025 What Was The Date Of Your Most Recent Tobacco Screening? 05/16/2025 [email or web address] Information not available 05/16/2025 Sex: Unknown Functional Status Question Answer Note LastModified by [employer] Details LastModified Time Do you use any illicit or recreational drugs? No [email or web address] Information not available 05/16/2025 What is your level of alcohol consumption? None [email or web address] Information not available 05/16/2025 Mental Status None recorded. Family History Nothing Reported. Medical History No medical history recorded. Gynecological HistoryNo gynecological history recorded. Obstetrics History GPAL:G 0 P 0 0 0 0 Immunizations Vaccine Type Date Status Note Provider Nam e and Address Organization Details Recorded Time Influenza, high-dose, trivalent, PF 6 completed Not Available [facility] 10/04/2025 14:39:42 zoster recombinant 8 completed Not Available [facility] 10/04/2025 14:39:42 zoster recombinant 8 completed [facility] Available [facility] 10/04/2025 14:39:42 Tdap 8 completed Not Available [facility] 10/04/2025 14:39:42 COVID-19, mRNA, LNP-S, PF, 100 mcg/0.5mL dose or 50 mcg/0.25mL dose 1 completed Not Available [facility] 10/04/2025 14:39:42 COVID-19, mRNA, LNP-S, PF, 100 mcg/0.5mL dose or 50 mcg/0.25mL dose 1 completed Not Available [facility] 10/04/2025 14:39:42 COVID-19, mRNA, LNP-S, PF, 100 mcg/0.5mL dose or 50 mcg/0.25mL dose 2 completed Not Available [facility] 10/04/2025 14:39:42 COVID-19, mRNA, LNP-S, bivalent, PF, 50 mcg/0.5 mL or 25mcg/0.25 mL dose 2 completed Not Available [facility] 10/04/2025 14:39:42 COVID-19, mRNA, LNP-S, PF, francia-sucrose, 30 mcg/0.3 mL 4 completed Not Available [facility] 10/04/2025 14:39:42 Past Encounters Encounter ID Performer Location Encounter Start Date Encounter Closed Date Diagnosis/Indication Diagnosis SNOMED-CT Code Diagnosis ICD10 Code Diagnosis IMO Codes Diagnosis Note [id number] DILLON MADDOX PA-C [facility] ([facility]) [address] [place] [address] 09/07/2024 11:55:42 10/01/2024 22:00:49 Parkinson's disease 07306764 G20.A1 CARB/LEVO 25/100 5 X QD Dementia 27137126 F03.90 2 YEARS AT [facility] Anxiety 43465504 F41.9 CELEXA 10MG QD Chronic ki dney disease stage 3B 465839220 N18.32 CR 1.0 GFR 60% Diabetes mellitus 638561 09 E11.9 DIPIKA 800MG QD A1C 6.3 HUMALOG 5UNITS AC TREISBA 35UNITS QD, TRULICITY 3MG WEEKLY Edema 167975868 R60.9 FUREOSEMID E 40MG QD NO ORDER CHANGES [id number] Beny Vital MD [facility] ([facility]) [address] [place] [phone] 09/21/2024 08:41:53 09/25/2024 20:20:02 Lives in prison 048198233 Z59.3 Need for p ersonal care assistance 4228544735 1762818 Z74.1 Diabetes mellitus 446423 09 E13.42 Chronic ki dney disease stage 3B 892864944 N18.32 Parkinson's disease 4904 9000 G20.A1 stable with meds. [id number] Beny Vital MD [facility] ([facility]) [address] [place] [id number] 5 10/19/2024 08:06:37 10/21/2024 08:11:28 Need for personal care assistance 6511088163 2834029 Z74.1 Lives in prison 16 3352978 Z59.3 Chronic ki dney disease stage 3B 011744732 N18.32 Diabetes mellitus 440670 09 E11.9 Parkinson's disease 4904 9000 G20.A1 stable with meds. Pain of mu ltiple joints 57148570 M25.50 Will try some Diclofenac gel prn [id number] DILLON MADDOX PA-C [facility] ([facility]) [address] [place] [id number] 5 10/26/2024 12:28:58 11/22/2024 08:16:29 Pain of left shoulder joint 2163029951 2272752 M25.512 DICLOFENAC 1GR topically apply to affected area QD PRNIf not helpful can do a OT referal. [id number] Beny Vital MD [facility] ([facility]) [address] [place] [id number] 5 11/16/2024 08:09:21 11/21/2024 13:19:11 Need for personal care assistance 8005709451 4158013 Z74.1 Lives in prison 16 4924968 Z59.3 Chronic ki dney disease stage 3B 689600802 N18.32 Parkinson's disease 4904 9000 G20.A1 stable with meds. Pain of mu ltiple joints 34368140 M25.50 stable [id number] DILLON MADDOX PA-C [facility] ([facility]) [address] [place] [phone] 5 12/21/2024 12:27:11 01/13/2025 12:17:28 Pain of left shoulder joint 4430347337 5727159 M25.512 OT referral. to help with pain and ROM.She already has pain medication and Votaren rub. [id number] Beny Vital MD [facility] ([facility]) [address] [place] [phone] 5 01/25/2025 08:16:55 01/27/2025 06:04:41 Need for personal care assistance 2997141432 2261261 Z74.1 Lives in prison 16 0768205 Z59.3 Chronic ki dney disease stage 3B 329083810 N18.32 Pain of mu ltiple joints 25096276 M25.50 stable Parkinson's disease 4904 9000 G20.A1 stable with meds. [id number] DILLON MADDOX PA-C [facility] ([facility]) [address] [place] [id number] 5 03/08/2025 12:02:24 03/23/2025 18:20:25 Primary insomnia 7930595 F51.01 47873 ativan .5mg q hs prn x 14 dayswe reeval and if non use then d/c. if she is using freq then we will consider using for longer duration [id number] DILLON MADDOX PA-C [facility] ([facility]) [address] [place] [phone] 5 03/15/2025 12:39:01 03/31/2025 16:58:30 Bilateral lower limb edema 274787605 R60.0 4816321 wt check qd x3 days,chest xray,cbc/c mp/bnp/a1c spironalac tone 50mg qd [id number] Beny Vital MD [facility] ([facility]) [address] [place] [id number] 5 03/22/2025 07:57:47 03/24/2025 12:30:58 Need for personal care assistance [id number] 1603717 Z74.1 9388180 Lives in prison 16 5757717 Z78.9 5363684 Chronic ki dney disease stage 3B 146225718 N18.32 Diabetes mellitus 961406 09 E11.9 Chronic pain 81027521 G8 9.29 Parkinson's disease 4904 9000 G20.A1 stable with meds. [id number] DILLON MADDOX PA-C [facility] ([facility]) [address] [place] [id number] 5 04/12/2025 12:34:23 04/21/2025 10:58:14 Cellulitis of umbilicus 07151457 L03.502 4883177 cephalexin 500mg qid x 7 daysmupiro violeta tid [id number] DILLON MADDOX PA-C [facility] ([facility]) [address] [place] [id number] 5 05/03/2025 12:20:57 05/17/2025 18:09:32 Acute urinary tract infection 341145402 N39.0 454716 er follow up on cefdinir changed to bactrim due to resistance push fluids. continue to monitor. [id number] John Maddox MD [facility] ([facility]) [address] [place] [phone] 5 05/16/2025 09:08:37 06/06/2025 12:56:37 Anxiety 55562160 F41.9 06998 [id number] DILLON MADDOX PA-C [facility] ([facility]) [address] [place] [id number] 5 05/17/2025 12:23:19 06/06/2025 14:54:26 Acute kidney injury 48675196 N17.9 377359 cr 2.2 k5,5cr 1.1 on /c lasix kcl bmp Thursday and Thursday ua with c&s renal us for krystina [id number] DILLON MADDOX PA-C [facility] ([facility]) [address] [place] [phone] 5 05/24/2025 15:06:10 06/06/2025 14:41:22 Acute kidney injury 10333620 N17.9 780212 cr 1.8 on followup (baseline 1.2) on injury her Cr 2.2kidney us normal, improved off lasix bmp in 2 weeks [id number] DILLON MADDOX PA-C [facility] ([facility]) [address] [place] [id number] 5 05/31/2025 12:40:59 06/07/2025 17:41:34 Type 2 diabetes mellitus 39636824 E11.9 Z79.4 80613443 increase degludec insulin to 40 units at hs and lispro to 12 uits ac Blister of foot 45661359 3 S90.426A 59609751 feet inspected and no lesions or bruising seen. [id number] John Maddox MD [facility] ([facility]) [address] [place] [id number] 5 07/18/2025 07:59:59 07/24/2025 12:24:24 Chronic kidney disease stage 3B 985615399 N18.32 Type 2 juan r betes mellitus 10604360 E11.9 Z79.4 27690342 Stasis dermatitis 519084 05 I87.2 76277399 with likely cellulitis mupirocin and doxycline ordered as well as iodine tx daily [id number] DILLON MADDOX PA-C [facility] ([facility]) [address] [place] [id number] 5 08/02/2025 12:17:16 09/18/2025 07:42:54 Parkinson's disease 59311513 G20.A1 5793433032 tizanadine 4mg 1 po tid prn Retention of urine 36853 4002 R33.9 13174 waiting on ua results cbc/cmpstr aight cath if <250cc urine output in a shift. [id number] DILLON MADDOX PA-C [facility] ([facility]) [address] [place] [id number] 5 09/06/2025 17:42:30 10/17/2025 13:33:21 Seen in department 575154472 Z76.89 [id number] ER records reviewed. Constipation 11284591 K5 9.09 520981 MAKE LACTULOSE PRNpush fluids and increase activity. [id number] DILLON MADDOX PA-C [facility] ([facility]) [address] [place] [id number] 5 09/13/2025 12:07:35 10/17/2025 17:14:17 Chronic constipation 538890568 K59.09 791658 MAKE LACTULOSE PRN she is often refusing. Urinary sy mptom change 031114398 R39.231 7903258 ua with c&s [id number] John Maddox MD [facility] ([facility]) [address] [place] [id number] 5 09/19/2025 08:05:07 10/17/2025 12:39:38 Type 2 diabetes mellitus 71503560 E11.9 Z79.4 61308260 [id number] DILLON MADDOX PA-C [facility] ([facility]) [address] [place] [id number] 5 10/04/2025 14:39:32 11/06/2025 08:02:05 Anxiety 93393758 F41.9 43625 xanax .5mg @hs scheduled. more relaxed and feeling better with this dose.she is already on a SSRI. Parkinson's disease 4904 9000 G20.A1 0594685773 Health Concerns Section Related Observation LastModified by Organization Detai ls LastModified Time None Recorded Concern Status LastModified by Organization Details LastModified Time None Recorded Advance Directives Directive None Recorded Payers Insurance Date Sequence Insurance Name Policy Number Policy Tucker Covered Member ID Tucker Member ID Guarantor Name 09/13/2025 1 [place] Miguelina A Provow [id number] Miguelina A Provow 10/12/2025 2 [place] Leilani Provow [id number] Miguelina A Provow 11/06/2025 1 [place] - [place]PO) [id number] Miguelina A Provow [id number] Miguelina A Provow 09/13/2025 3 [place] Miguelina A Provow [id number] Miguelina A Provow 10/17/2025 [place] [facility] Leilani Provow [id number] Miguelina Weber Leroyleonie Notes Date Note Type Note Provider Name and Address Organization Details Recorded Time 5 text/html Lower Urinary Tract Symptoms (LUTS)Reported by PatientHPIFor context, patient reportsabnormal voiding frequencybut reportschanges in voiding affect quality of life. For associated symptoms, patient reportsabdominal painbut reportsno chills,no fever,no nausea, andno vomiting. For location, patient reportsbilateral. For quality, patient reportspressure. For severity, patient reportsmoderate. For onset/timing, patient reportsconstant. For alleviating factors, patient reportsantispasmodics. John Maddox MD [address] [place] [address], [phone], [facility] 09/15/2025 13:45:43 5 text/html ConstipationReported by PatientHPIFor quality, patient reportshard,dry,straining ,decreased frequency, anddecreased amount. For severity, patient reportsmoderate. For duration, patient reportspresent <1 month. Pt was seen in ER for abdomnial pain.She was dx with constipation and sent backShe has had several BMs now and nursing staff asking to change her Lactulose to PRN> John Maddox MD [address] [place] [address], [phone], [facility] 10/17/2025 12:51:38 5 text/html ConstipationReported by PatientHPIFor quality, patient reportshard,dry,straining ,decreased frequency, anddecreased amount. For context, patient reportshistory of diabetes. For severity, patient reportsmoderate. For duration, patient reportspresent <1 month. staff is noticing more slimey discharge and odor in her brief. no dysuria. is often incontinent. NO fever. no abdominal pain John Maddox MD [address] [place] [address], [phone], [facility] 10/17/2025 12:50:59 5 text/html DiabetesReported by PatientI reviewed the patient's recent labs, vital signs, medications, and plan of care. I recommend no other change sat this time.she report there have been no changes or problems. staff concurs. she has no questions or concerns today Dr. Maddox saw patient today at [facility] John Maddox MD [address] [place], [phone], [facility], L[facility]yLMari. 10/17/2025 12:35:48 5 text/html Anxiety/DepressionReporte d by [...] to be resting well. John Maddox MD [address] [place], [phone], [facility], LCheyLMari. 11/05/2025 21:55:43 OBGyn Episode No OBEpisode recorded.
[2025-11-07 22:58] LABS: Hematocrit 33.1 % (36-47); Hemoglobin 10.50 g/dL (11.27-16.99); Mean Corpuscular HGB Conc 31.7 g/dL (30-55); Mean Corpuscular Hemoglobin 27.8 pg (27-33); Mean Corpuscular Volume 87.6 fl (85-98); Nucleated Red Blood Cells % 0 %; Platelet Count 129 10^3/cmm (157-399); Red Blood Count 3.78 10^6/uL (3.85-5.65); White Blood Count 10.10 10^3/uL (3.29-11.43)
--- NOTE | 2025-11-07 23:09 | CTR_ITS ---
PROCEDURE INFORMATION: Exam: CT Abdomen And Pelvis With Contrast Exam date and time: 11/07/2025 11:58 PM Age: 65 years old Clinical indication: Abdominal pain; Additional info: Abd pain, fever TECHNIQUE: Imaging protocol: Computed tomography of the abdomen and pelvis with contrast. Radiation optimization: All CT scans at this facility use at least one of these dose optimization techniques: automated exposure control; mA and/or kV adjustment per patient size (includes targeted exams where dose is matched to clinical indication); or iterative reconstruction. Contrast material: OMNI 350; Contrast volume: 100 ml; Contrast route: INTRAVENOUS (IV); COMPARISON: CT abdomen pelvis wo con [id number] 06/18/2024 12:22 PM RADIATION DOSE METRICS: Total DLP (mGy-cm): 1439.66 FINDINGS: Liver: Normal. No mass. Gallbladder and biliary ducts: Normal. No calcified stones. No ductal dilation. Pancreas: Normal. No ductal dilation. Spleen: Normal. No splenomegaly. Adrenal glands: Normal. No mass. Kidneys and ureters: Obstructing 2 cm left UPJ stone. Mild hydronephrosis of the left kidney. Thickening of the left renal pelvis with periureteral fat stranding. Infected stone can not be excluded. Stomach and bowel: Moderate fecal retention, correlate for constipation. Appendix: No evidence of appendicitis. Intraperitoneal space: Unremarkable. No free air. No significant fluid collection. Vasculature: Unremarkable. No abdominal aortic aneurysm. Lymph nodes: Unremarkable. No enlarged lymph nodes. Urinary bladder: Townsend catheter terminates in a decompressed urinary bladder. Reproductive: Unremarkable as visualized. Bones/joints: Unremarkable. No acute fracture. Soft tissues: Unremarkable. CT/CT abdomen pelvis w con* [id number] IMPRESSION: 1. Obstructing 2 cm left UPJ stone. Mild hydronephrosis of the left kidney. Thickening of the left renal pelvis with periureteral fat stranding. Infected stone can not be excluded. 2. Moderate fecal retention, correlate for constipation.
[2025-11-07 23:11] VITALS: BP 117/63; PULSE 90; RESP 16; O2SAT 96
[2025-11-07 23:20] LABS: Lactic Sepsis W/Reflex 1.3 mmol/L (0.5-2.2)
[2025-11-07 23:21] LABS: Glucose Urine UA Trace (Normal); Nitrate Urine Positive (Negative); Specific Gravity, Urine 1.017 (1.005-1.030)
[2025-11-07 23:21] LABS: Troponin(5th) Baseline 79 ng/L (0-10)
[2025-11-07] MEDS: cefTRIAXone 2,000 mg SDV 2000 MG IVP (23:23)
[2025-11-07] MEDS: acetaminophen 1,000 MG/100 ML PIGGYBACK 400 MG IV (23:24)
[2025-11-07 23:26] LABS: Add Urine Microscopic? YES
[2025-11-07 23:32] LABS: NT Pro B Type Natriuretic Pept 681 pg/mL (0-125); Procalcitonin 15.13 ng/mL (0-0.5)
[2025-11-07] MEDS: meropenem 1,000 mg SDV 2000 MG IVP (23:33)
[2025-11-07 23:35] VITALS: BP 118/66; PULSE 85; O2SAT 97
--- NOTE | 2025-11-07 23:36 | ECG_ITS ---
[facility]25[facility]08 Pat Name: Miguelina Goncalves Department: Room: Gender: Female Calibration Checker: : 1960 Requested By: Paola Asif Order Number: [id number] Reading MD: Hansel Alexander M.D. Measurements Intervals [place] Rate: 83 P: 63 WV: 158 QRS: 41 QRSD: 89 T: 4 QT: 387 QTc: 455 Interpretive Statements SINUS RHYTHM LOW QRS VOLTAGE IN PRECORDIAL LEADS [QRS DEFLECTION < 1.0 mV IN CHEST LEADS] Compared to ECG 11/07/2025 22:39:39 NO SIGNIFICANT CHANGE Electronically Signed On 11-09-2025 17:10:39 SATELLITE MANAGER by Hansel Alexander M.D. [email or web address]
[2025-11-07 23:42] LABS: Alanine Aminotransferase < 5 U/L (0-33); Albumin Level 3.2 g/dL (3.5-5.2); Alkaline Phosphatase 84 U/L (35-105); Anion Gap 19.0 (5-19); Aspartate Amino Transferase 13 U/L (0-32); Blood Urea Nitrogen 32 mg/dL (8-23); Calcium 8.2 mg/dL (8.5-10.5); Carbon Dioxide 20 mmol/L (22-29); Chloride 96 mmol/L (98-107); Creatinine Clr Calc Pharmacy 43.4392; Globulin 2.8 g/dL (1.3-4.6); Glucose 317 mg/dL (65-115); Osmolality Calculated 291 mOsm/kg (285-295); Potassium 4.0 mmol/L (3.5-5.1); Sodium 131 mmol/L (136-145); Total Protein 6.0 g/dL (6.6-8.7)
[2025-11-07 23:56] LABS: Respiratory Syncytial Virus Ce NEGATIVE (Negative); SARS-CoV-2 PCR NEGATIVE (Negative)
[2025-11-08] VITALS (7 sets, daily range): BP systolic 98–123; BP diastolic 56–63; PULSE 69–83; TEMP 37.1; O2SAT 96–97
[2025-11-08] MEDS: iohexol 350 mg/mL 500 mL Btl (per mL) IV (00:20)
[2025-11-08] MEDS: heparin drip 25,000 UNIT/500 ML PREMIX 23.73 UNIT IV (00:54)
== END 2025-11-08 03:44 | disposition short-term general hospital (02) ==
PROVIDERS: Emergency Provider Emergency Medicine; PCP Family Medicine
DX: N13.6 Pyonephrosis (principal); A41.9 Sepsis, unspecified organism; I21.4 Non-ST elevation (NSTEMI) myocardial infarction; E78.5 Hyperlipidemia, unspecified; E11.22 Type 2 diabetes mellitus with diabetic chronic kidney disease; I12.9 Hypertensive chronic kidney disease with stage 1 through stage 4 chronic kidney disease, or unspecified chronic kidney disease; N18.9 Chronic kidney disease, unspecified
CPT/HCPCS: 36415; 71045; 74177; 80053; 81001; 83605; 83880; 84145; 84484; 85025; 87040; 87077; 87086; 87186; 87637; 93005; 96365; 96366; 96375; 99285; J0131; J0696; J1644; J2185; J7030; J7120